=== PATIENT | male | born 1970 | race Caucasian/White ===

== ENCOUNTER 2017-09-23 11:43 | Emergency (ER) | payer SELFPAY ==
--- OUTSIDE RECORDS SUMMARY | 2017-09-23 11:45 | XMS REPORT ---
:1970 [facility] Address [address] [place] [address] Dr. Valera [address] [place] [id number] Care Team Providers Name Role Phone UNKNOWN, REFFERING Primary Care Provider Unavailable Problems This patient has no known problems. Allergies, Adverse Reactions, Alerts This patient has no known allergies or adverse reactions. Medications This patient has no known medications. Encounters Start End Encounter Admission Attending Care Care Encounter Date/Time Date/Time Type Type Clinicians Facility Department ID 2016-06-11 Inpatient C [facility] [id number] 15:30:00
--- OUTSIDE RECORDS SUMMARY | 2017-09-23 11:45 | XMS REPORT | Clinical Summary ---
:1970 Author Organization [facility] Address [address] [place] [address] Care Team Providers Name Role Phone Asked, No Pcp Primary Care Provider Unavailable Allergies No Known Allergies Current Medications Not on file Active Problems Problem Noted Date Alcohol withdrawal 10/19/2015 Bipolar affective disorder, depressed, severe, with psychotic behavior 2015 Social History Tobacco Use Types Packs/Day Years Used Date Current Every Day Smoker 15 Started: 10/17/1984 Smokeless Tobacco: Current User Snuff Tobacco Cessation: Ready to Quit: No; Counseling Given: Yes Alcohol Use Drinks/Week oz/Week Comments Yes 80 Cans of beer 48.0 case a day some days Sex Assigned at Date Recorded Not on file Last Filed Vital Signs Not on file Plan of Treatment Not on file Results Not on fileafter 09/22/2016
[2017-09-23] MEDS ORDERED: LORazepam 2 MG/ML VIAL ONE ×2 (12:08→14:59)
[2017-09-23] MEDS ORDERED: NA CHLORIDE 0.9% 1,000 ML ONE (12:09)
[2017-09-23 12:25] LABS: Absolute Lymphocytes (CBC) 2.1 K/uL (0.7-4.9); Absolute Monocytes 0.7 K/uL (0.1-1.3); Basophils % 0.7 % (0-1.3); Eosinophils % 1.2 % (0-4.4); Hematocrit 46.9 % (39.6-49.0); Lymphocytes % 18.9 % (15.3-44.8); MCH 25.1 pg (27.0-35.0); MCV 76.6 fL (80-100); MPV 7.5 fL (7.6-11.3); Monocytes % 6.1 % (3.3-12.3); RBC Red Blood Cell Count 6.12 M/uL (4.33-5.43)
[2017-09-23 12:34] LABS: Protime INR 1.09
[2017-09-23 12:38] LABS: Bicarbonate 29 mEq/L (21-31); Glucose Level 177 mg/dL (65-120); Potassium 3.4 mEq/L (3.6-5.0); Sodium Level 136 mEq/L (135-145)
[2017-09-23 12:43] LABS: ALT/SGPT 231 IU/L (10-60); AST/SGOT 149 IU/L (10-42); Albumin 4.6 g/dL (3.2-5.5); Alkaline Phosphatase 79 IU/L (42-121); BUN Blood Urea Nitrogen 7 mg/dL (6-20); Bilirubin Direct 0.1 mg/dL (0-0.2); Bilirubin Total 0.6 mg/dL (0.3-1.2)
[2017-09-23 12:47] LABS: Alcohol Serum/Plasma 328 mg/dl; Salicylates Level < 4.0 mg/dl (<30)
[2017-09-23 13:17] LABS: Urine Blood TRACE (NEG); Urine Glucose TRACE (NEG); Urine Protein NEGATIVE (NEG); Urine Specific Gravity <1.005 (1.005-1.030); Urine pH 6.5 (5.0-7.0)
[2017-09-23 13:29] LABS: Barbiturates NEGATIVE; Benzodiazepines NEGATIVE; Cocaine NEGATIVE; METHAMPHETAM NEGATIVE; Opiates NEGATIVE; Phencyclidine NEGATIVE; THC Cannibis NEGATIVE
[2017-09-23] MEDS ORDERED: FOLIC ACID IV ONE ×4 (14:00)
[2017-09-23] MEDS ORDERED: NA CHLORIDE 0.9% IV ONE ×4 (14:00)
[2017-09-23] MEDS ORDERED: [UNRECOGNIZED DRUG - OTHER] IV ONE ×4 (14:00)
[2017-09-23] MEDS ORDERED: MULTIVITAMINS IV ONE ×4 (14:00)
[2017-09-23] MEDS ORDERED: POTASSIUM CL SA 10 MEQ TAB PO ONE (14:59)
--- NOTE | 2017-09-23 15:48 | EKG ---
Test Date: 2017-09-23 Test Time: 13:21:01 [employer]: LINO MEASUREMENT RESULTS: Intervals: Rate: 113 MN: 148 QRSD: 94 QT: 346 QTc: 474 Ross: P: 33 MN: 148 QRS: 11 T: 5 INTERPRETIVE STATEMENTS: Sinus tachycardia cannot rule out anterior infarct Abnormal ECG Compared to ECG 03/30/2017 16:07:49 borderline criteria for anterior infarct are now present Electronically Signed On 09-23-17 15:48:04 CDT by Antonino Alexander
[2017-09-23 15:55] LABS: Potassium 3.2 mEq/L (3.6-5.0)
[2017-09-23] MEDS ORDERED: NS KCL 20MEQ 1,000 ML IV ONE (16:23)
[2017-09-23] MEDS ORDERED: POTASSIUM 25 MEQ EFFERV TAB ONE (16:23)
[2017-09-23 20:34] LABS: Potassium 3.6 mEq/L (3.6-5.0)
[2017-09-23] MEDS ORDERED: DIAZEPAM 10 MG/2 ML INJ SYRINGE ONE ×2 (21:35→21:39)
[2017-09-24] MEDS ORDERED: LORAZEPAM 1 MG TABLET ONE (10:06)
--- NOTE | 2017-09-24 16:20 | ER ---
Nurse's Notes [facility] Name: Frank Polo Age: 47 yrs Sex: Male : 1970 Arrival Date: 09/23/2017 Time: 11:44 Bed 16 Private MD: Diagnosis: Suicidal ideations;Major depressive disorder, recurrent;Alcohol abuse;Alcohol abuse with intoxication;Hypokalemia Presentation: 09/23 11:58 Presenting complaint: Patient states: "I have been shaking and feeling bad for the last hb few days and I just want to shoot my brains out.". Transition of care: patient was not received from another setting of care. Onset of symptoms is unknown. Initial Sepsis Screen: Does the patient meet any 2 criteria? No. Patient's initial sepsis screen is negative. Does the patient have a suspected source of infection? No. Patient's initial sepsis screen is negative. Care prior to arrival: None. 11:58 Method Of Arrival: Ambulatory hb 11:58 Acuity: PRANAV 2 hb Historical: - Allergies: 12:02 NKDA; hb - Home Meds: 12:02 chlorpromazine 200 mg Oral tab [Active]; gabapentin 300 mg Oral cap 2 caps 3 times per hb day [Active]; meloxicam 15 mg Oral tab 1 tab once daily [Active]; mirtazapine 30 mg Oral tab 1 tab once daily for Major Depressive Disorder [Active]; Remeron Oral [Active]; Seroquel Oral [Active]; sertraline 100 mg Oral tab 1 tab once daily [Active]; trazodone 100 mg Oral tab nightly [Active]; - PMHx: 12:02 Alcoholism; Bipolar disorder; hb - PSHx: 12:02 left ankle surgery; hb - Immunization history:: Adult Immunizations up to date. - Social history:: Smoking status: Patient uses tobacco products, chewing tobacco. Screenin:30 Abuse screen: Denies threats or abuse. Denies injuries from another. Nutritional hb screening: No deficits noted. Tuberculosis screening: No symptoms or risk factors identified. Fall Risk None identified. Assessment: 12:00 General: Appears distressed, Behavior is cooperative, agitated, anxious. Pain: Denies hb pain. Neuro: Level of Consciousness is awake, alert, obeys commands, Oriented to person, place, time, situation. Cardiovascular: Heart tones S1 S2 present Capillary refill < 3 seconds Patient's skin is warm and dry. Respiratory: Airway is patent Trachea midline Respiratory effort is even, unlabored, Respiratory pattern is regular, symmetrical, Breath sounds are clear bilaterally. GI: No signs and/or symptoms were reported involving the gastrointestinal system. : No signs and/or symptoms were reported regarding the genitourinary system. EENT: No signs and/or symptoms were reported regarding the EENT system. Derm: No signs and/or symptoms reported regarding the dermatologic system. Skin is intact, is healthy with good turgor, Skin is pink, warm \\T\\ dry. Musculoskeletal: No signs and/or symptoms reported regarding the musculoskeletal system. 12:05 Reassessment: Sitter at bedside. hb 12:45 Reassessment: Pt c/o anxiety, HIGH [employer]CHO[employer] D[employer]FTING TEACHER Maria Fernanda notified. No new orders at this time. hb 13:00 Reassessment: Patient appears in no apparent distress at this time. Patient and/or hb family updated on plan of care and expected duration. Pain level reassessed. Patient is alert, oriented x 3, equal unlabored respirations, skin warm/dry/pink. Sitter at bedside. 13:15 Reassessment: Pt c/o anxiety, H[employer] SCHO[employer] DRAFTING TEACHER Maria Fernanda aware. No new orders at this time. hb 13:40 Reassessment: Pt c/o anxiety, H[employer] SCHO[employer] DRA[employer]ING TEACHER Maria Fernanda aware. No new orders at this time. hb 14:00 Reassessment: Patient appears in no apparent distress at this time. Patient and/or hb family updated on plan of care and expected duration. Pain level reassessed. Patient is alert, oriented x 3, equal unlabored respirations, skin warm/dry/pink. Sitter at bedside. 14:30 Reassessment: Pt c/o anxiety, H[employer] SCHO[employer] DRA[employer]ING TEACHER Maria Fernanda aware. No new orders at this time. hb 15:10 Reassessment: Patient appears in no apparent distress at this time. Patient and/or hb family updated on plan of care and expected duration. Pain level reassessed. Patient is alert, oriented x 3, equal unlabored respirations, skin warm/dry/pink. Pt c/o severe anxiety, requesting more Ativan. SEMAJ Mena notified, repeat Ativan administered as ordered. Sitter remains at bedside. 16:00 Reassessment: Patient appears in no apparent distress at this time. No changes from hb previously documented assessment. Patient and/or family updated on plan of care and expected duration. Pain level reassessed. Patient is alert, oriented x 3, equal unlabored respirations, skin warm/dry/pink. Sitter at bedside. 17:00 Reassessment: Patient appears in no apparent distress at this time. No changes from hb previously documented assessment. Patient and/or family updated on plan of care and expected duration. Pain level reassessed. Patient is alert, oriented x 3, equal unlabored respirations, skin warm/dry/pink. 18:00 Reassessment: Patient appears in no apparent distress at this time. No changes from hb previously documented assessment. Patient and/or family updated on plan of care and expected duration. Pain level reassessed. Patient is alert, oriented x 3, equal unlabored respirations, skin warm/dry/pink. 19:00 Reassessment: Patient appears in no apparent distress at this time. No changes from hb previously documented assessment. Patient and/or family updated on plan of care and expected duration. Pain level reassessed. Patient is alert, oriented x 3, equal unlabored respirations, skin warm/dry/pink. 19:40 General: Appears in no apparent distress. Behavior is calm, cooperative. Pain: Denies ea pain. Neuro: Level of Consciousness is awake, alert, obeys commands, Oriented to person, place, time, situation. Cardiovascular: Heart tones S1 S2 present Patient's skin is warm and dry. Respiratory: Airway is patent Respiratory effort is even, unlabored, Respiratory pattern is regular, symmetrical. GI: No signs and/or symptoms were reported involving the gastrointestinal system. : No signs and/or symptoms were reported regarding the genitourinary system. EENT: No signs and/or symptoms were reported regarding the EENT system. Derm: Skin is pink, warm \\T\\ dry. 20:00 Reassessment: Patient and/or family updated on plan of care and expected duration. Pain ea level reassessed. Patient is alert, oriented x 3, equal unlabored respirations, skin warm/dry/pink. 21:16 Reassessment: Patient and/or family updated on plan of care and expected duration. Pain ea level reassessed. Patient is alert, oriented x 3, equal unlabored respirations, skin warm/dry/pink. 22:56 Reassessment: Patient and/or family updated on plan of care and expected duration. Pain ea level reassessed. Pt resting with eyes closed, respirations even and unlabored, chest expansions even and symmetrical. No s/s of pain or discomfort noted at this time. 23:15 Reassessment: Pt resting with eyes closed, respirations even and unlabored, chest ea expansions even and unlabored. No obvious s/s of pain or discomfort noted at this time. 09/24 00:58 Reassessment: Pt resting with eyes closed, respirations even and unlabored, chest ea expansions even and symmetrical. No s/s of pain or discomfort noted at this time. 01:55 Reassessment: Pt resting with eyes closed, respirations even and unlabored, chest ea expansions even and symmetrical. No s/s of pain or discomfort noted at this time. 02:55 Reassessment: Pt resting with eyes closed, respirations even and unlabored, chest ea expansions even and symmetrical. No s/s of pain or discomfort noted at this time. 03:46 Reassessment: Pt resting with eyes closed, respirations even and unlabored, chest ea expansions even and symmetrical. No s/s pain or discomfort noted at this time. 04:50 Reassessment: Pt resting with eyes closed, respirations even and unlabored, chest ea expansions even and symmetrical. No s/s of pain or discomfort noted at this time. 05:55 Reassessment: Pt resting with eyes closed, respirations even and unlabored, Chest ea expansions even and symmetrical. No s/s of pain or discomfort noted at this time. 07:29 Reassessment: Patient appears in no apparent distress at this time. Patient and/or ph family updated on plan of care and expected duration. Pain level reassessed. pt resting quietly with eyes closed and respirations even and unlabored. 09:30 Reassessment: Patient appears in no apparent distress at this time. Patient and/or ph family updated on plan of care and expected duration. Pain level reassessed. Patient is alert, oriented x 3, equal unlabored respirations, skin warm/dry/pink. 11:00 Reassessment: Patient appears in no apparent distress at this time. Patient and/or ph family updated on plan of care and expected duration. Pain level reassessed. Patient is alert, oriented x 3, equal unlabored respirations, skin warm/dry/pink. Pt resting quietly, awaiting transfer to psychiatric facility. 12:00 Reassessment: Patient appears in no apparent distress at this time. No changes from ph previously documented assessment. Patient and/or family updated on plan of care and expected duration. Pain level reassessed. Patient is alert, oriented x 3, equal unlabored respirations, skin warm/dry/pink. 13:00 Reassessment: Patient appears in no apparent distress at this time. No changes from ph previously documented assessment. 14:11 Reassessment: Patient appears in no apparent distress at this time. No changes from ph previously documented assessment. Patient and/or family updated on plan of care and expected duration. Pain level reassessed. Patient is alert, oriented x 3, equal unlabored respirations, skin warm/dry/pink. 15:00 Reassessment: Patient appears in no apparent distress at this time. Patient and/or ph family updated on plan of care and expected duration. Pain level reassessed. Patient is alert, oriented x 3, equal unlabored respirations, skin warm/dry/pink. Pt requesting to speak w/ provider, states, " I really don't want to harm myself and I/m tired of being stuck here w/ everyone watching me. Who do I need to talk to? I haven't had my normal medicines in 2 days and I'm ready to go home." ERP notified. 16:09 Reassessment: Patient appears in no apparent distress at this time. Patient and/or ph family updated on plan of care and expected duration. Pain level reassessed. Patient is alert, oriented x 3, equal unlabored respirations, skin warm/dry/pink. Dr Key at bedside to speak with pt, pt denies suicidal or homicidal thoughts at this time, pt to be discharged. Psych: 09/23 12:05 Safety Checks: Personal items have been removed. Door is open. No visitors are present hb at this time. Sitter at bedside. 12:30 Subjective: Patient's mood is sad, irritable, Hallucinations are auditory, visual, hb Having thoughts of suicide. Plan for suicide is "shoot my brains out". Objective: Patient is cooperative, challenging, irritable, restless, Speech is normal, Affect is flat. Interventions: Removed personal items and placed in bag. Patient placed in hospital gown. Searched person for dangerous items. Urine collected and sent for urine drug test. Suicide Risk Assessment: Sad Person Scale: Sex of patient: Male: Score 1 point. Age of patient: Score 1 point if patient 15-34. Depression: Score 1 point if signs of depression are present. Previous Attempt: Score 0 point if patient has not previously attempted suicide. Substance Abuse: Score 1 point if patient abuses alcohol or drugs. Rational Thinking: Score 1 point if patient is lacking rational thinking. Social Support: Score 1 point if social support is lacking and/or unavailable. Organized Plan: Score 1 point if patient had a plan in place. Relationship: Score 1 point if patient is , , , or for a single male Chronic Sickness: Score 0 point if patient does not have a chronic illness, debilitating, or severe disorder. TOTAL POINTS: If total points are 7-10, the proposed clinical action is to hospitalize or commit. Implement suicide precautions. 12:30 Patient uses 6 pack of beer, daily. Last use was 01 hours ago. Patient does not have a hb history of DTs. Vital Signs: 11:59 BP 168 / 102; Pulse 124; Resp 20; Temp 98; Pulse Ox 100% on R/A; Pain 0/10; hb 14:00 BP 167 / 89; Pulse 109; Resp 17; Pulse Ox 100% on R/A; Pain 3/10; hb 15:00 BP 156 / 86; Pulse 105; Resp 18; Pulse Ox 100% on R/A; hb 17:00 BP 168 / 78; Pulse 92; Resp 16; Pulse Ox 100% on R/A; hb 18:30 BP 156 / 86; Pulse 88; Resp 16; Pulse Ox 100% on R/A; hb 21:52 BP 125 / 76; Pulse 113; Resp 20; Pulse Ox 95% on R/A; oe 09/24 07:59 Weight 113.4 kg; bd 13:13 BP 152 / 93; Pulse 70; Resp 16; Pulse Ox 96% ; ag 16:30 BP 146 / 87; Pulse 76; Resp 18; Temp 97.6; Pulse Ox 99% on R/A; ph ED Course: 09/23 11:44 Patient arrived in ED. hb 11:53 [facility] kb 11:53 Rosales Enrique MD is Attending Physician. kb 11:58 Anne-Marie Jameson, RN is Primary Nurse. hb 11:59 Triage completed. hb 12:02 Arm band placed on left wrist. hb 12:05 Patient has correct armband on for positive identification. Placed in gown. Bed in low hb position. Call light in reach. Side rails up X 1. 12:05 Inserted saline lock: 20 gauge in left antecubital area, using aseptic technique. Blood hb collected. 12:15 Safety Checks: Personal items have been removed The door is open or patient has been hb placed in a hallway bed/chair. There are no family/friend visitors at this time Sitter at bedside. 12:17 Safety checks: Items removed: yes. Door open/sign placed on door: yes. Family/friend dh3 present: no. 12:30 Safety Checks: Personal items have been removed The door is open or patient has been hb placed in a hallway bed/chair. There are no family/friend visitors at this time Sitter at bedside. 12:30 Safety checks: Items removed: yes. Door open/sign placed on door: yes. Family/friend dh3 present: no. 12:45 Safety Checks: Personal items have been removed The door is open or patient has been hb placed in a hallway bed/chair. There are no family/friend visitors at this time. 12:45 Safety checks: Items removed: yes. Door open/sign placed on door: yes. Family/friend dh3 present: no. 13:00 Safety Checks: Personal items have been removed The door is open or patient has been hb placed in a hallway bed/chair. There are no family/friend visitors at this time Sitter at bedside. 13:00 Urine collected: clean catch specimen, clear. dh3 13:15 Safety Checks: Personal items have been removed The door is open or patient has been hb placed in a hallway bed/chair. There are no family/friend visitors at this time Sitter at bedside. 13:30 Safety Checks: Personal items have been removed The door is open or patient has been hb placed in a hallway bed/chair. There are no family/friend visitors at this time Sitter at bedside. 13:32 EKG done, by computer field technician. reviewed by Rosales Enrique MD. dt2 13:45 Safety Checks: Personal items have been removed The door is open or patient has been hb placed in a hallway bed/chair. There are no family/friend visitors at this time Sitter at bedside. 14:00 Safety Checks: Personal items have been removed The door is open or patient has been hb placed in a hallway bed/chair. There are no family/friend visitors at this time Sitter at bedside. 14:15 Safety Checks: Personal items have been removed The door is open or patient has been hb placed in a hallway bed/chair. There are no family/friend visitors at this time Sitter at bedside. 14:30 Safety Checks: Personal items have been removed The door is open or patient has been hb placed in a hallway bed/chair. There are no family/friend visitors at this time Sitter remains at bedside. 14:45 Safety Checks: Personal items have been removed The door is open or patient has been hb placed in a hallway bed/chair. There are no family/friend visitors at this time Sitter remains at bedside. 15:00 Safety Checks: Personal items have been removed The door is open or patient has been hb placed in a hallway bed/chair. There are no family/friend visitors at this time Sitter remains at bedside. 15:15 Safety Checks: Personal items have been removed The door is open or patient has been hb placed in a hallway bed/chair. There are no family/friend visitors at this time Sitter remains at bedside. 15:30 Safety Checks: Personal items have been removed The door is open or patient has been hb placed in a hallway bed/chair. There are no family/friend visitors at this time Sitter remains at bedside. 15:45 Safety Checks: Personal items have been removed The door is open or patient has been hb placed in a hallway bed/chair. There are no family/friend visitors at this time Sitter remains at bedside. 16:00 Safety Checks: Personal items have been removed The door is open or patient has been hb placed in a hallway bed/chair. There are no family/friend visitors at this time Sitter remains at bedside. 16:15 Safety Checks: Personal items have been removed The door is open or patient has been hb placed in a hallway bed/chair. There are no family/friend visitors at this time Sitter remains at bedside. 16:30 Safety Checks: Personal items have been removed The door is open or patient has been hb placed in a hallway bed/chair. There are no family/friend visitors at this time Sitter remains at bedside. 16:45 Safety Checks: Personal items have been removed The door is open or patient has been hb placed in a hallway bed/chair. There are no family/friend visitors at this time Sitter remains at bedside. 17:00 Safety Checks: Personal items have been removed The door is open or patient has been hb placed in a hallway bed/chair. There are no family/friend visitors at this time Sitter remains at bedside. 17:15 Safety Checks: Personal items have been removed The door is open or patient has been hb placed in a hallway bed/chair. There are no family/friend visitors at this time Sitter remains at bedside. 17:30 Safety Checks: Personal items have been removed The door is open or patient has been hb placed in a hallway bed/chair. There are no family/friend visitors at this time Sitter remains at bedside. 17:45 Safety Checks: Personal items have been removed The door is open or patient has been hb placed in a hallway bed/chair. There are no family/friend visitors at this time Sitter at bedside. 18:00 Safety Checks: Personal items have been removed The door is open or patient has been hb placed in a hallway bed/chair. There are no family/friend visitors at this time Sitter at bedside. 18:15 Safety Checks: Personal items have been removed The door is open or patient has been hb placed in a hallway bed/chair. There are no family/friend visitors at this time Sitter at bedside. 18:30 Safety Checks: Personal items have been removed The door is open or patient has been hb placed in a hallway bed/chair. There are no family/friend visitors at this time Sitter at bedside. 18:45 Safety Checks: Personal items have been removed The door is open or patient has been hb placed in a hallway bed/chair. There are no family/friend visitors at this time Sitter at bedside. 19:00 Safety Checks: Personal items have been removed The door is open or patient has been hb placed in a hallway bed/chair. There are no family/friend visitors at this time Sitter at bedside. 19:00 Safety checks: Items removed: Door open/sign placed on door: yes. Family/friend oe present: no. 19:15 Safety checks: Items removed: yes. Door open/sign placed on door: yes. Family/friend oe present: no. 19:30 Safety checks: Items removed: yes. Door open/sign placed on door: yes. Family/friend oe present: no. 19:45 Safety checks: Items removed: yes. Door open/sign placed on door: yes. Family/friend oe present: no. 20:00 Safety checks: Items removed: yes. Door open/sign placed on door: yes. Family/friend oe present: no. 20:15 Safety checks: Items removed: yes. Door open/sign placed on door: yes. Family/friend oe present: no. 20:30 Safety checks: Items removed: yes. Door open/sign placed on door: yes. Family/friend oe present: no. 20:45 Safety checks: Items removed: yes. Door open/sign placed on door: yes. Family/friend oe present: no. 21:00 Safety checks: Items removed: yes. Door open/sign placed on door: yes. Family/friend oe present: no. 21:15 Safety checks: Items removed: yes. Door open/sign placed on door: yes. Family/friend oe present: no. 21:30 Safety checks: Items removed: yes. Door open/sign placed on door: yes. Family/friend oe present: no. 21:45 Safety checks: Items removed: yes. Door open/sign placed on door: yes. Family/friend oe present: no. 22:00 Safety checks: Items removed: yes. Door open/sign placed on door: yes. Family/friend oe present: no. 22:15 Safety checks: Items removed: yes. Door open/sign placed on door: yes. Family/friend oe present: no. 22:30 Safety checks: Items removed: yes. Door open/sign placed on door: yes. Family/friend oe present: no. 22:45 Safety checks: Items removed: yes. Door open/sign placed on door: yes. Family/friend oe present: no. 23:00 Safety checks: Items removed: yes. Door open/sign placed on door: yes. Family/friend oe present: no. 23:15 Safety checks: Items removed: yes. Door open/sign placed on door: yes. Family/friend oe present: no. 23:30 Safety checks: Items removed: yes. Door open/sign placed on door: yes. Family/friend oe present: no. 23:45 Safety checks: Items removed: yes. Door open/sign placed on door: yes. Family/friend oe present: no. 09/24 00:00 Safety checks: Items removed: yes. Door open/sign placed on door: yes. Family/friend oe present: no. 00:15 Safety checks: Items removed: yes. Door open/sign placed on door: yes. Family/friend oe present: no. 00:30 Safety checks: Items removed: yes. Door open/sign placed on door: yes. Family/friend oe present: no. 00:45 Safety checks: Items removed: yes. Door open/sign placed on door: yes. Family/friend oe present: no. 01:00 Safety checks: Items removed: yes. Door open/sign placed on door: yes. Family/friend oe present: no. 01:15 Safety checks: Items removed: yes. Door open/sign placed on door: yes. Family/friend oe present: no. 01:30 Safety checks: Items removed: yes. Door open/sign placed on door: yes. Family/friend oe present: no. 01:45 Safety checks: Items removed: yes. Door open/sign placed on door: yes. Family/friend oe present: no. 02:00 Safety checks: Items removed: yes. Door open/sign placed on door: yes. Family/friend oe present: no. 02:15 Safety checks: Items removed: yes. Door open/sign placed on door: yes. Family/friend oe present: no. 02:30 Safety checks: Items removed: yes. Door open/sign placed on door: yes. Family/friend oe present: no. 02:45 Safety checks: Items removed: yes. Door open/sign placed on door: yes. Family/friend oe present: no. 03:00 Safety checks: Items removed: yes. Door open/sign placed on door: yes. Family/friend oe present: no. 03:15 Safety checks: Items removed: yes. Door open/sign placed on door: yes. Family/friend oe present: no. 03:30 Safety checks: Items removed: yes. Door open/sign placed on door: yes. Family/friend oe present: no. 03:45 Safety checks: Items removed: yes. Door open/sign placed on door: yes. Family/friend oe present: no. 04:00 Safety checks: Items removed: yes. Door open/sign placed on door: yes. Family/friend oe present: no. 04:15 Safety checks: Items removed: yes. Door open/sign placed on door: yes. Family/friend oe present: no. 04:30 Safety checks: Items removed: yes. Door open/sign placed on door: yes. Family/friend oe present: no. 04:45 Safety checks: Items removed: yes. Door open/sign placed on door: yes. Family/friend oe present: no. 05:00 Safety checks: Items removed: yes. Door open/sign placed on door: yes. Family/friend oe present: no. 05:15 Safety checks: Items removed: yes. Door open/sign placed on door: yes. Family/friend oe present: no. 05:30 Safety checks: Items removed: yes. Door open/sign placed on door: yes. Family/friend oe present: no. 05:45 Safety checks: Items removed: yes. Door open/sign placed on door: yes. Family/friend oe present: no. 06:00 Safety checks: Items removed: yes. Door open/sign placed on door: yes. Family/friend oe present: no. 06:15 Safety checks: Items removed: yes. Door open/sign placed on door: yes. Family/friend oe present: no. 06:30 Safety checks: Items removed: yes. Door open/sign placed on door: yes. Family/friend oe present: no. 06:45 Safety checks: Items removed: yes. Door open/sign placed on door: yes. Family/friend oe present: no. 07:00 Safety Checks: Personal items have been removed The door is open or patient has been ph placed in a hallway bed/chair. There are no family/friend visitors at this time. 07:00 Safety checks: Items removed: yes. Door open/sign placed on door: yes. Family/friend oe present: no. 07:09 Report given to Rosetta ROY ea 07:15 Safety Checks: Personal items have been removed The door is open or patient has been ph placed in a hallway bed/chair. There are no family/friend visitors at this time. 07:30 Safety Checks: Personal items have been removed The door is open or patient has been ph placed in a hallway bed/chair. There are no family/friend visitors at this time. 07:45 Safety Checks: Personal items have been removed The door is open or patient has been ph placed in a hallway bed/chair. There are no family/friend visitors at this time. 08:00 Safety Checks: Personal items have been removed The door is open or patient has been ph placed in a hallway bed/chair. There are no family/friend visitors at this time. 08:07 attempted transfer to [facility], there are no [facility] beds at this time,spoke bd with Analia. 08:09 faxed the chart to [facility], [facility], [facility], [facility], and [facility]. 08:15 Safety Checks: Personal items have been removed The door is open or patient has been ph placed in a hallway bed/chair. There are no family/friend visitors at this time. 08:30 Safety Checks: Personal items have been removed The door is open or patient has been ph placed in a hallway bed/chair. There are no family/friend visitors at this time. 08:45 Safety Checks: Personal items have been removed The door is open or patient has been ph placed in a hallway bed/chair. There are no family/friend visitors at this time. 09:00 Safety Checks: Personal items have been removed The door is open or patient has been ph placed in a hallway bed/chair. There are no family/friend visitors at this time. 09:15 Safety Checks: Personal items have been removed The door is open or patient has been ph placed in a hallway bed/chair. There are no family/friend visitors at this time. 09:30 Safety Checks: Personal items have been removed The door is open or patient has been ph placed in a hallway bed/chair. There are no family/friend visitors at this time. 09:45 Safety Checks: Personal items have been removed The door is open or patient has been ph placed in a hallway bed/chair. There are no family/friend visitors at this time. 10:00 Safety Checks: Personal items have been removed The door is open or patient has been ph placed in a hallway bed/chair. There are no family/friend visitors at this time. 10:15 Safety Checks: Personal items have been removed The door is open or patient has been ph placed in a hallway bed/chair. There are no family/friend visitors at this time. 10:30 Safety Checks: Personal items have been removed The door is open or patient has been ph placed in a hallway bed/chair. There are no family/friend visitors at this time. 10:45 Safety Checks: The door is open or patient has been placed in a hallway bed/chair. ph There are no family/friend visitors at this time. 11:00 Safety Checks: Personal items have been removed The door is open or patient has been ph placed in a hallway bed/chair. There are no family/friend visitors at this time. 11:15 Safety Checks: Personal items have been removed The door is open or patient has been ph placed in a hallway bed/chair. There are no family/friend visitors at this time. 11:30 Safety Checks: Personal items have been removed The door is open or patient has been ph placed in a hallway bed/chair. There are no family/friend visitors at this time. 11:45 Safety Checks: Personal items have been removed The door is open or patient has been ph placed in a hallway bed/chair. There are no family/friend visitors at this time. 12:00 Safety Checks: Personal items have been removed The door is open or patient has been ph placed in a hallway bed/chair. There are no family/friend visitors at this time. 12:15 Safety Checks: Personal items have been removed The door is open or patient has been ph placed in a hallway bed/chair. There are no family/friend visitors at this time. 12:30 Safety Checks: Personal items have been removed The door is open or patient has been ph placed in a hallway bed/chair. There are no family/friend visitors at this time. 12:45 Safety Checks: Personal items have been removed The door is open or patient has been ph placed in a hallway bed/chair. There are no family/friend visitors at this time. 13:00 Safety Checks: Personal items have been removed The door is open or patient has been ph placed in a hallway bed/chair. There are no family/friend visitors at this time. 13:15 Safety Checks: Personal items have been removed The door is open or patient has been ph placed in a hallway bed/chair. There are no family/friend visitors at this time. 13:30 Safety Checks: Personal items have been removed The door is open or patient has been ph placed in a hallway bed/chair. There are no family/friend visitors at this time. 13:45 Safety Checks: Personal items have been removed The door is open or patient has been ph placed in a hallway bed/chair. There are no family/friend visitors at this time. 14:00 Safety Checks: Personal items have been removed The door is open or patient has been ph placed in a hallway bed/chair. There are no family/friend visitors at this time. 14:15 Safety Checks: Personal items have been removed The door is open or patient has been ph placed in a hallway bed/chair. There are no family/friend visitors at this time. 14:30 Safety Checks: Personal items have been removed The door is open or patient has been ph placed in a hallway bed/chair. There are no family/friend visitors at this time. 14:45 Safety Checks: Personal items have been removed The door is open or patient has been ph placed in a hallway bed/chair. There are no family/friend visitors at this time. 15:00 Safety Checks: Personal items have been removed The door is open or patient has been ph placed in a hallway bed/chair. There are no family/friend visitors at this time. 15:15 Safety Checks: Personal items have been removed The door is open or patient has been ph placed in a hallway bed/chair. There are no family/friend visitors at this time. 15:30 Safety Checks: Personal items have been removed The door is open or patient has been ph placed in a hallway bed/chair. There are no family/friend visitors at this time. 15:45 Safety Checks: Personal items have been removed The door is open or patient has been ph placed in a hallway bed/chair. There are no family/friend visitors at this time. 16:00 Safety Checks: Personal items have been removed The door is open or patient has been ph placed in a hallway bed/chair. There are no family/friend visitors at this time. 16:15 Safety Checks: Personal items have been removed The door is open or patient has been ph placed in a hallway bed/chair. There are no family/friend visitors at this time. 16:18 Attending Physician role handed off by Rosales Enrique MD [facility] 16:18 Tay Key MD is Attending Physician. [facility] 16:30 Safety Checks: Personal items have been removed The door is open or patient has been ph placed in a hallway bed/chair. There are no family/friend visitors at this time. 16:35 No provider procedures requiring assistance completed. IV discontinued, intact, ph bleeding controlled, No redness/swelling at site. Pressure dressing applied. Administered Medications: 09/23 12:06 Drug: Ativan 1 mg Route: IVP; Site: left antecubital; hb 14:11 Follow up: Response: No adverse reaction hb 12:06 Drug: NS 0.9% 1000 ml Route: IV; Rate: 1000 ml; Site: left antecubital; hb 13:15 Follow up: Response: No adverse reaction; IV Status: Completed infusion hb 14:10 Drug: Banana Bag - (NS 0.9% 1000 ml, foLIC Acid 1 mg, Thiamine 100 mg, Multivitamin 1 hb amp) Route: IV; Rate: calculated rate; Site: left antecubital; 16:30 Follow up: IV Status: Completed infusion hb 14:11 Drug: Potassium Chloride 20 mEq Route: PO; hb 15:00 Follow up: Response: No adverse reaction hb 15:01 Drug: Ativan 1 mg Route: IVP; Site: left antecubital; hb 16:00 Follow up: Response: No adverse reaction hb 16:30 Drug: Potassium Effervescent Tablet 25 mEq Route: PO; hb 17:33 Follow up: Response: No change in condition hb 16:35 Drug: NS 0.9% with KCl 20 mEq/L 1000 ml Route: IV; Rate: calculated rate; Site: left hb antecubital; 18:00 Follow up: IV Status: Completed infusion hb 21:30 Drug: NS 0.9% 1000 ml Route: IV; Rate: 1000 ml; Site: left antecubital; ea 23:49 Follow up: Response: No adverse reaction; IV Status: Completed infusion; IV Intake: ea 1000ml 21:54 Drug: Valium 5 mg Route: IVP; Site: left antecubital; ea 23:48 Follow up: Response: No adverse reaction; Marked relief of symptoms ea 09/24 10:12 Drug: Ativan 1 mg Route: PO; ph 14:15 Follow up: Response: No adverse reaction ph Intake: 09/23 23:49 IV: 1000ml; Total: 1000ml. ea Outcome: 09/24 16:19 Discharge ordered by . amy 16:37 Patient left the ED. ph 16:37 Discharged to home ambulatory. ph 16:37 Condition: improved 16:37 Discharge instructions given to patient, Instructed on discharge instructions, follow up and referral plans. Demonstrated understanding of instructions, follow-up care. Signatures: Maria Fernanda Bloom, LINE LEADER-C LINE LEADER-Ckb Glory Chand Corey, MD MD cha Gallardo, Rosetta Napoles RN RN ph Baxter, Heather, RN EDISON Alvaro Aguilar Deanna 3 Renetta Ramirez RN Gabrielle Kong ea dt2 Corrections: (The following items were deleted from the chart) 09/23 20:02 19:39 Safety checks: Items removed: yes. Door open/sign placed on door: yes. oe Family/friend present: no. oe 20:02 19:39 Safety checks: Items removed: yes. Door open/sign placed on door: yes. oe Family/friend present: no. oe 21:53 20:26 Safety checks: Items removed: yes. Door open/sign placed on door: yes. oe Family/friend present: no. oe 21:53 20:26 Safety checks: Items removed: yes. Door open/sign placed on door: yes. oe Family/friend present: no. oe 21:54 20:27 Safety checks: Items removed: yes. Door open/sign placed on door: yes. oe Family/friend present: no. oe 21:54 20:30 Safety checks: Items removed: yes. Door open/sign placed on door: yes. oe Family/friend present: no. oe 09/24 01:09 01:08 Safety checks: Items removed: yes. Door open/sign placed on door: yes. oe Family/friend present: no. oe 01:58 01:57 Safety checks: Items removed: yes. Door open/sign placed on door: yes. oe Family/friend present: no. oe 04:25 03:53 Safety checks: Items removed: yes. Door open/sign placed on door: yes. oe Family/friend present: no. oe 06:05 05:35 Safety checks: Items removed: yes. Door open/sign placed on door: yes. oe Family/friend present: no. oe 06:05 05:35 Safety checks: Items removed: yes. Door open/sign placed on door: yes. oe Family/friend present: no. oe 07:02 05:35 Safety checks: Items removed: yes. Door open/sign placed on door: yes. oe Family/friend present: no. oe 07:02 05:36 Safety checks: Items removed: yes. Door open/sign placed on door: yes. oe Family/friend present: no. oe
--- NOTE | 2017-09-24 16:21 | EDPHYS ---
Physician Documentation [facility] Name: Frank Polo Age: 47 yrs Sex: Male : 1970 Arrival Date: 09/23/2017 Time: 11:44 Bed 16 Private MD: ED Physician Tay Key HPI: 09/24 16:18 This 47 yrs old Male presents to ER via Ambulatory with complaints of amy Suicidal Ideation. 09/23 12:01 The patient presents to the emergency department with depression, suicide ideation, and kb the patient has a plan, to shoot self. Onset: The symptoms/episode began/occurred 3 day(s) ago. Past psychiatric history: Prior diagnosis: bipolar disorder, depression, Psychiatric medications include: Remeron, Seroquel. Associated signs and symptoms: Pertinent positives; hallucinations, suicide ideation. Severity of symptoms: At their worst the symptoms were moderate in the emergency department the symptoms are unchanged. The patient has experienced similar episodes in the past. The patient has not recently seen a physician. Pt states "I can't keep shaking. It's been going on for a couple of days. I drank some beers to help, but it hasn't. I want to shoot my brains out. I'm seeing things too." Reports he sees [facility] for bipolar depression. Next appt is on 09/29/17. Historical: - Allergies: 12:02 NKDA; hb - Home Meds: 12:02 chlorpromazine 200 mg Oral tab [Active]; gabapentin 300 mg Oral cap 2 caps 3 times per hb day [Active]; meloxicam 15 mg Oral tab 1 tab once daily [Active]; mirtazapine 30 mg Oral tab 1 tab once daily for Major Depressive Disorder [Active]; Remeron Oral [Active]; Seroquel Oral [Active]; sertraline 100 mg Oral tab 1 tab once daily [Active]; trazodone 100 mg Oral tab nightly [Active]; - PMHx: 12:02 Alcoholism; Bipolar disorder; hb - PSHx: 12:02 left ankle surgery; hb - Immunization history:: Adult Immunizations up to date. - Social history:: Smoking status: Patient uses tobacco products, chewing tobacco. ROS: 12:01 Constitutional: Negative for fever, chills, and weight loss, ENT: Negative for injury, kb pain, and discharge, Neck: Negative for injury, pain, and swelling, Cardiovascular: Negative for chest pain, palpitations, and edema, Respiratory: Negative for shortness of breath, cough, wheezing, and pleuritic chest pain, Abdomen/GI: Negative for abdominal pain, nausea, vomiting, diarrhea, and constipation, Back: Negative for injury and pain, : Negative for injury, bleeding, discharge, and swelling, MS/Extremity: Negative for injury and deformity, Skin: Negative for injury, rash, and discoloration, Neuro: Negative for headache, weakness, numbness, tingling, and seizure. 12:01 Psych: Positive for depression, auditory hallucinations, visual hallucinations, suicidal ideation. Exam: 11:59 Constitutional: This is a well developed, well nourished patient who is awake, alert, kb and in no acute distress. Head/Face: Normocephalic, atraumatic. Chest/axilla: Normal chest wall appearance and motion. Nontender with no deformity. No lesions are appreciated. Cardiovascular: Regular rate and rhythm with a normal S1 and S2. No gallops, murmurs, or rubs. Normal PMI, no JVD. No pulse deficits. Respiratory: Lungs have equal breath sounds bilaterally, clear to auscultation and percussion. No rales, rhonchi or wheezes noted. No increased work of breathing, no retractions or nasal flaring. Abdomen/GI: Soft, non-tender, with normal bowel sounds. No distension or tympany. No guarding or rebound. No evidence of tenderness throughout. Back: No spinal tenderness. No costovertebral tenderness. Full range of motion. Skin: Warm, dry with normal turgor. Normal color with no rashes, no lesions, and no evidence of cellulitis. MS/ Extremity: Pulses equal, no cyanosis. Neurovascular intact. Full, normal range of motion. Neuro: Awake and alert, GCS 15, oriented to person, place, time, and situation. Cranial nerves II-XII grossly intact. Motor strength 5/5 in all extremities. Sensory grossly intact. Cerebellar exam normal. Normal gait. 11:59 Psych: Behavior/mood is cooperative, suicidal, depressed, Affect is calm, Oriented to person, place, time, Patient having thoughts of suicide. Judgement / Insight is normal. Memory is normal. Delusions/hallucinations are present and described as Reports he is seeing people and they are talking to him. Vital Signs: 11:59 BP 168 / 102; Pulse 124; Resp 20; Temp 98; Pulse Ox 100% on R/A; Pain 0/10; hb 14:00 BP 167 / 89; Pulse 109; Resp 17; Pulse Ox 100% on R/A; Pain 3/10; hb 15:00 BP 156 / 86; Pulse 105; Resp 18; Pulse Ox 100% on R/A; hb 17:00 BP 168 / 78; Pulse 92; Resp 16; Pulse Ox 100% on R/A; hb 18:30 BP 156 / 86; Pulse 88; Resp 16; Pulse Ox 100% on R/A; hb 21:52 BP 125 / 76; Pulse 113; Resp 20; Pulse Ox 95% on R/A; oe 09/24 07:59 Weight 113.4 kg; bd 13:13 BP 152 / 93; Pulse 70; Resp 16; Pulse Ox 96% ; ag 16:30 BP 146 / 87; Pulse 76; Resp 18; Temp 97.6; Pulse Ox 99% on R/A; ph MDM: 09/23 11:53 Patient medically screened. kb 11:59 Data reviewed: vital signs, nurses notes. Data interpreted: Pulse oximetry: on room air kb is 100 %. Interpretation: normal. 09/23 11:58 Order name: Acetaminophen; Complete Time: 12:49 kb 09/23 11:58 Order name: Basic Metabolic Panel; Complete Time: 12:49 kb 09/23 11:58 Order name: CBC with Diff; Complete Time: 12:28 kb 09/23 11:58 Order name: ETOH Level; Complete Time: 12:49 kb 09/23 11:58 Order name: Hepatic Function; Complete Time: 12:49 kb 09/23 11:58 Order name: PT-INR; Complete Time: 12:49 kb 09/23 11:58 Order name: Ptt, Activated; Complete Time: 12:49 kb 09/23 11:58 Order name: Salicylate; Complete Time: 12:49 kb 09/23 11:58 Order name: Urine Drug Screen; Complete Time: 13:55 kb 09/23 13:09 Order name: Urine Dipstick--Ancillary (enter results); Complete Time: 13:18 bd 09/23 15:18 Order name: Potassium kb 09/23 15:18 Order name: ETOH Level kb 09/23 15:19 Order name: Potassium; Complete Time: 16:18 EDMS 09/23 15:19 Order name: Alcohol Serum/Plasma; Complete Time: 16:18 EDMS 09/23 11:58 Order name: EKG; Complete Time: 11:59 kb 09/23 13:01 Order name: Diet Finger Food; Complete Time: 13:01 ch 09/23 19:43 Order name: Potassium; Complete Time: 20:46 kb 09/23 19:43 Order name: ETOH Level; Complete Time: 20:46 kb 09/24 07:23 Order name: Diet Regular; Complete Time: 07:23 ph 09/24 07:36 Order name: ETOH Level; Complete Time: 13:07 bd 09/23 11:58 Order name: EKG - Nurse/Tech; Complete Time: 13:27 kb 09/23 11:58 Order name: IV Saline Lock; Complete Time: 13:27 kb 09/23 11:58 Order name: Labs collected and sent; Complete Time: 13:27 kb 09/23 11:58 Order name: Urine Dipstick-Ancillary (obtain specimen); Complete Time: 13:28 kb 09/23 15:17 Order name: Vital Signs; Complete Time: 15:31 kb 09/24 12:20 Order name: Diet Regular; Complete Time: 12:20 ph 09/24 12:21 Order name: Diet Regular; Complete Time: 12:21 ph Administered Medications: 12:06 Drug: Ativan 1 mg Route: IVP; Site: left antecubital; hb 14:11 Follow up: Response: No adverse reaction hb 12:06 Drug: NS 0.9% 1000 ml Route: IV; Rate: 1000 ml; Site: left antecubital; hb 13:15 Follow up: Response: No adverse reaction; IV Status: Completed infusion hb 14:10 Drug: Banana Bag - (NS 0.9% 1000 ml, foLIC Acid 1 mg, Thiamine 100 mg, Multivitamin 1 hb amp) Route: IV; Rate: calculated rate; Site: left antecubital; 16:30 Follow up: IV Status: Completed infusion hb 14:11 Drug: Potassium Chloride 20 mEq Route: PO; hb 15:00 Follow up: Response: No adverse reaction hb 15:01 Drug: Ativan 1 mg Route: IVP; Site: left antecubital; hb 16:00 Follow up: Response: No adverse reaction hb 16:30 Drug: Potassium Effervescent Tablet 25 mEq Route: PO; hb 17:33 Follow up: Response: No change in condition hb 16:35 Drug: NS 0.9% with KCl 20 mEq/L 1000 ml Route: IV; Rate: calculated rate; Site: left hb antecubital; 18:00 Follow up: IV Status: Completed infusion hb 21:30 Drug: NS 0.9% 1000 ml Route: IV; Rate: 1000 ml; Site: left antecubital; ea 23:49 Follow up: Response: No adverse reaction; IV Status: Completed infusion; IV Intake: ea 1000ml 21:54 Drug: Valium 5 mg Route: IVP; Site: left antecubital; ea 23:48 Follow up: Response: No adverse reaction; Marked relief of symptoms ea 09/24 10:12 Drug: Ativan 1 mg Route: PO; ph 14:15 Follow up: Response: No adverse reaction ph Disposition: 09/23 22:39 Co-signature as Attending Physician, Rosales Enrique MD I agree with the assessment and kdr plan of care. Disposition: 09/24/17 16:19 Discharged to Home. Impression: Suicidal ideations, Major depressive disorder, recurrent, Alcohol abuse, Alcohol abuse with intoxication, Hypokalemia. - Condition is Stable. - Discharge Instructions: Depression, Adult, Potassium Content of Foods, No-harm Safety Contract, Depression, Adult, [id number], Hypokalemia. - Medication Reconciliation Form, Thank You Letter, Antibiotic Education, Prescription Opioid Use form. - Follow up: Private Physician; When: 1 - 2 days; Reason: Recheck today's complaints, Continuance of care, Re-evaluation by your physician. - Problem is new. - Symptoms have improved. Signatures: Dispatcher [employer] EDMS Maria Fernanda Bloom, MARCUS-C ESCORT BLIND-Tay Bragg MD MD cha Rittger, Kevin, MD MD kdr Nieto, Roman, MD MD rn Hall, Patricia, RN RN Anne-Marie Jameson, RN RN Renetta Ramirez RN EDISON fitzpatrick Corrections: (The following items were deleted from the chart) 09/24 16:37 16:19 09/24/2017 16:19 Discharged to Home. Impression: Suicidal ideations; Major ph depressive disorder, recurrent; Alcohol abuse; Alcohol abuse with intoxication; Hypokalemia. Condition is Stable. Forms are Medication Reconciliation Form, Thank You Letter, Antibiotic Education, Prescription Opioid Use. Follow up: Private Physician; When: 1 - 2 days; Reason: Recheck today's complaints, Continuance of care, Re-evaluation by your physician. Problem is new. Symptoms have improved. amy
[2017-09-24 16:49] VITALS: TEMP 98
[2017-09-24 16:57] VITALS: BP 152/93; O2SAT 96
== END 2017-09-24 16:37 | disposition home or self-care (01) ==
LOC: ER 11:43
DX: F33.9 Major depressive disorder, recurrent, unspecified (principal); F10.129 Alcohol abuse with intoxication, unspecified; E87.6 Hypokalemia; F31.9 Bipolar disorder, unspecified; Z72.0 Tobacco use
CPT/HCPCS: 36415; 80048; 80076; 80307; 80320; 80329; 81003; 84132; 85025; 85610; 85730; 93005; 96361; 96365; 96366; 96375; 99285; J3360; J3411; J7030

== ENCOUNTER 2017-10-17 15:52 | Emergency (ER) | payer SELFPAY ==
--- OUTSIDE RECORDS SUMMARY | 2017-10-17 15:54 | XMS REPORT | Clinical Summary ---
:1970 Author Organization [facility] Address [address] [place] [address] Care Team Providers Name Role Phone Asked, [...] Not on file Results Not on fileafter 10/16/2016
--- OUTSIDE RECORDS SUMMARY | 2017-10-17 15:54 | XMS REPORT ---
:1970 [facility] Address [address] [place] [address] Dr. Valera [address] [place] [id number] Care Team Providers Name Role Phone UNKNOWN, REFFERING Primary Care Provider Unavailable Problems This patient has no known problems. Allergies, Adverse Reactions, Alerts This patient has no known allergies or adverse reactions. Medications This patient has no known medications. Encounters Start End Encounter Admission Attending Care Care Encounter Date/Time Date/Time Type Type Clinicians Facility Department ID 2016-06-11 Inpatient [facility] [id number] 15:30:00
[2017-10-17] MEDS ORDERED: NA CHLORIDE 0.9% 1,000 ML ONE (16:59)
[2017-10-17 17:01] LABS: Urine Blood TRACE (NEG); Urine Glucose NEGATIVE (NEG); Urine Protein NEGATIVE (NEG); Urine Specific Gravity <1.005 (1.005-1.030)
[2017-10-17 17:04] LABS: Barbiturates NEGATIVE; Benzodiazepines NEGATIVE; Cocaine NEGATIVE; METHAMPHETAM NEGATIVE (NEGATIVE); Opiates NEGATIVE; Phencyclidine NEGATIVE; THC Cannibis NEGATIVE
[2017-10-17 17:07] LABS: Absolute Lymphocytes (CBC) 2.8 K/uL (0.7-4.9); Absolute Monocytes 0.4 K/uL (0.1-1.3); Absolute Neutrophil 5.9 K/uL (1.8-8.0); Basophils % 1.2 % (0-1.3); Eosinophils % 2.9 % (0-4.4); Hematocrit 43.2 % (39.6-49.0); Lymphocytes % 29.8 % (15.3-44.8); MCV 75.9 fL (80-100); MPV 7.3 fL (7.6-11.3); Monocytes % 3.8 % (3.3-12.3)
[2017-10-17 17:08] LABS: Protime INR 1.06
[2017-10-17 17:13] LABS: Bicarbonate 24 mEq/L (21-31); Glucose Level 111 mg/dL (65-120); Potassium 3.3 mEq/L (3.6-5.0); Sodium Level 136 mEq/L (135-145)
[2017-10-17] MEDS ORDERED: LORazepam 2 MG/ML VIAL ONE (17:14)
[2017-10-17] MEDS ORDERED: CYCLOBENZAPRINE 10 MG TAB ONE (17:18)
[2017-10-17 17:19] LABS: ALT/SGPT 49 IU/L (10-60); AST/SGOT 46 IU/L (10-42); Albumin 4.5 g/dL (3.2-5.5); Alkaline Phosphatase 67 IU/L (42-121); BUN Blood Urea Nitrogen 8 mg/dL (6-20); Bilirubin Direct < 0.1 mg/dL (0-0.2); Bilirubin Total 0.4 mg/dL (0.3-1.2); Protein, Total 8.4 g/dL (6.0-8.3)
[2017-10-17] MEDS ORDERED: KETOROLAC 30 MG/ML INJ ONE (17:19)
[2017-10-17] MEDS ORDERED: HYDROCODONE/APAP 10/325 TAB ONE (17:19)
[2017-10-17 17:26] LABS: Alcohol Serum/Plasma 336 mg/dl
[2017-10-17] MEDS ORDERED: HALOPERIDOL LACT 5 MG/ML INJ ONE (18:41)
[2017-10-17] MEDS ORDERED: DIPHENHYDRAMINE 50 MG/ML VIAL ONE (18:41)
[2017-10-18] MEDS ORDERED: LORazepam 2 MG/ML VIAL ONE (09:11)
--- NOTE | 2017-10-18 10:39 | EKG ---
Test Date: 2017-10-18 Test Time: 05:00:20 Substation Operator Apprentice: STACIA MEASUREMENT RESULTS: Intervals: Rate: 102 UT: 140 QRSD: 84 QT: 356 QTc: 463 [place]: P: -1 UT: 140 QRS: 21 T: 7 INTERPRETIVE STATEMENTS: Sinus tachycardia Otherwise normal ECG Compared to ECG 09/23/2017 13:21:01 Myocardial infarct finding no longer present Electronically Signed On 10-18-17 10:38:51 CDT by Antonino Alexander
[2017-10-18] MEDS ORDERED: DIAZEPAM 5 MG TABLET ONE (11:34)
--- NOTE | 2017-10-18 11:47 | ER ---
Nurse's Notes [facility] Name: Frank Polo Age: 47 yrs Sex: Male : 1970 Arrival Date: 10/17/2017 Time: 15:55 Bed 17 Private MD: None, None Diagnosis: Major depressive disorder, recurrent;Alcohol abuse;Suicidal ideations Presentation: 10/17 15:55 Presenting complaint: Patient states: "I feel like I want to kill myself by sv asphyxiation. I think I'm going through alcohol withdrawals." Pt reports last beer was 4 hours ago and he has had a 6 pack today. Pt reports binge drinking the last week. c/o weakness. "I need to go to a psych hospital." Pt reports being depressed. Transition of care: patient was not received from another setting of care. Onset of symptoms was October 17, 2017. 15:55 Method Of Arrival: Ambulatory sv 15:55 Acuity: PRANAV 2 sv 15:56 Risk Assessment: Do you want to hurt yourself or someone else? Patient reports sv desire/thoughts of hurting themselves or someone else. Provider notified. Initial Sepsis Screen: Does the patient meet any 2 criteria? No. Patient's initial sepsis screen is negative. Does the patient have a suspected source of infection? No. Patient's initial sepsis screen is negative. Care prior to arrival: None. Historical: - Allergies: 16:10 NKDA; sv - Home Meds: 16:10 gabapentin 300 mg Oral cap 2 caps 3 times per day [Active]; Seroquel Oral [Active]; sv - PMHx: 16:10 Alcoholism; Bipolar disorder; sv - PSHx: 16:10 left ankle surgery; sv - Immunization history:: Adult Immunizations up to date. - Social history:: Smoking status: Patient uses tobacco products, chewing tobacco, Patient uses alcohol, patient/guardian reports recent binge of alcohol consumption. - Ebola Screening: : No symptoms or risks identified at this time. Screenin:49 Abuse screen: Denies threats or abuse. Nutritional screening: No deficits noted. mb3 Tuberculosis screening: No symptoms or risk factors identified. Fall Risk None identified. Assessment: 16:55 General: Appears obese, unkempt, Behavior is anxious, uncooperative, Smells of alcohol. mb3 Pain: Denies pain. Neuro: Level of Consciousness is awake, alert, obeys commands, Oriented to person, place, time, situation, Printer Machine are equal bilaterally. Cardiovascular: No deficits noted. Respiratory: No deficits noted. Airway is patent Respiratory effort is even, unlabored, Respiratory pattern is regular, symmetrical, Breath sounds are clear bilaterally. GI: No deficits noted. No signs and/or symptoms were reported involving the gastrointestinal system. Abdomen is round obese, Bowel sounds present X 4 quads. Abd is soft and non tender. : No signs and/or symptoms were reported regarding the genitourinary system. Derm: No deficits noted. No signs and/or symptoms reported regarding the dermatologic system. Musculoskeletal: No deficits noted. No signs and/or symptoms reported regarding the musculoskeletal system. 19:02 Reassessment: Pt called friend, Stew Oden, he arrived and took pt's black wallet mb3 with him. Did not observe contents of wallet, pt stated it had over $500.00. 19:04 Reassessment: Patient appears in no apparent distress at this time. Patient and/or mb3 family updated on plan of care and expected duration. Pain level reassessed. Patient is alert, oriented x 3, equal unlabored respirations, skin warm/dry/pink. Patient denies pain at this time. 20:09 Reassessment: Patient appears in no apparent distress at this time. Patient and/or mb3 family updated on plan of care and expected duration. Pain level reassessed. Patient is alert, oriented x 3, equal unlabored respirations, skin warm/dry/pink. Pt sleeping, making snoring sounds, did not wake Patient states symptoms have improved. 22:03 Reassessment: Patient appears in no apparent distress at this time. Patient and/or mb3 family updated on plan of care and expected duration. Pain level reassessed. Patient is alert, oriented x 3, equal unlabored respirations, skin warm/dry/pink. Patient states symptoms have improved. 10/18 00:09 Reassessment: Patient appears in no apparent distress at this time. Patient and/or mb3 family updated on plan of care and expected duration. Pain level reassessed. Patient is alert, oriented x 3, equal unlabored respirations, skin warm/dry/pink. Patient states symptoms have improved. 02:02 Reassessment: Patient appears in no apparent distress at this time. Patient and/or mb3 family updated on plan of care and expected duration. Pain level reassessed. Patient is alert, oriented x 3, equal unlabored respirations, skin warm/dry/pink. Patient states symptoms have improved. 03:00 Reassessment: Report received from EDISON Bacon. bs1 03:00 General: Appears obese, unkempt, Behavior is anxious, Smells of alcohol. Pain: bs1 Complains of pain in abdomen. Neuro: Level of Consciousness is awake, alert, obeys commands, Oriented to person, place, time, situation, Printer Machine are equal bilaterally. Cardiovascular: Denies chest pain, shortness of breath, Heart tones S1 S2 present Capillary refill < 3 seconds Patient's skin is warm and dry. Respiratory: Airway is patent Trachea midline Respiratory effort is even, unlabored, Respiratory pattern is regular, symmetrical, Breath sounds are clear bilaterally. GI: Abdomen is round obese, Bowel sounds present X 4 quads. Abdomen is tender to palpation X 4 quads. : No signs and/or symptoms were reported regarding the genitourinary system. Derm: Skin is intact, Skin is pink, warm \\T\\ dry. Musculoskeletal: Circulation, motion, and sensation intact. Capillary refill < 3 seconds, Range of motion: intact in all extremities. 03:45 Reassessment: Patient c/o feeling shaky and having abdominal pain. Patient requesting bs1 pain medicine. Informed Dr Odom. No orders to be given at this time. 04:45 Reassessment: Patient appears in no apparent distress at this time. Patient and/or bs1 family updated on plan of care and expected duration. Pain level reassessed. Patient is alert, oriented x 3, equal unlabored respirations, skin warm/dry/pink. 05:45 Reassessment: Patient appears in no apparent distress at this time. Patient sleeping. bs1 No further needs at this time. 06:20 Reassessment: Patient appears in no apparent distress at this time. Patient and/or bs1 family updated on plan of care and expected duration. Pain level reassessed. Patient is alert, oriented x 3, equal unlabored respirations, skin warm/dry/pink. 07:03 Reassessment: Report given to DAYSI Shah. bs1 07:15 General: Appears in no apparent distress. comfortable, Behavior is calm, cooperative, em sitter at bedside. Pain: Complains of pain in abdomen. Neuro: Level of Consciousness is awake, alert, obeys commands, Oriented to person, place, time, situation. Cardiovascular: Capillary refill < 3 seconds Patient's skin is warm and dry. Respiratory: Airway is patent Respiratory effort is even, unlabored, Respiratory pattern is regular, symmetrical. GI: Abdomen is round non-distended. : No signs and/or symptoms were reported regarding the genitourinary system. Derm: Skin is intact, Skin is pink, warm \\T\\ dry. Musculoskeletal: Range of motion: intact in all extremities. 08:15 Reassessment: Patient appears in no apparent distress at this time. Patient and/or em family updated on plan of care and expected duration. Pain level reassessed. 09:15 Reassessment: request something for his shakes and sweating, Dr. Avilez notified, new em orders received. 09:25 Reassessment: Patient appears in no apparent distress at this time. Patient and/or em family updated on plan of care and expected duration. Pain level reassessed. 11:44 Reassessment: Patient appears in no apparent distress at this time. [facility] staff at em bedside. Psych: 10/17 18:49 Subjective: Patient's mood is irritable. Objective: Patient is uncooperative, mb3 irritable, Speech is normal, Affect is appropriate, Patient has mutilated themselves by none observed. Interventions: Removed personal items and placed in bag. Patient placed in hospital gown. Urine collected and sent for urine drug test. Suicide Risk Assessment: Sad Person Scale: Sex of patient: Male: Score 1 point. Age of patient: Score 0 point if patient falls outside of specified age parameters. Depression: Score 1 point if signs of depression are present. Previous Attempt: Score 1 point if patient has previously attempted suicide. Substance Abuse: Score 1 point if patient abuses alcohol or drugs. Rational Thinking: Score 0 point if patient has rational thinking. Social Support: Score 1 point if social support is lacking and/or unavailable. Organized Plan: Score 1 point if patient had a plan in place. Relationship: Score 1 point if patient is , , , or for a single male Chronic Sickness: Score 0 point if patient does not have a chronic illness, debilitating, or severe disorder. TOTAL POINTS: If total points are 7-10, the proposed clinical action is to hospitalize or commit. Implement suicide precautions. Safety Checks: Personal items have been removed. Door is open. No visitors are present at this time. Patient uses pt states benging, does not give amount, just states drinks all the time. Vital Signs: 15:55 BP 137 / 95; Pulse 129; Resp 22; Pulse Ox 95% on R/A; Weight 117.93 kg; Height 5 ft. 10 sv in. (177.80 cm); Pain 5/10; 20:08 BP 109 / 75; Pulse 85; Resp 18; Pulse Ox 94% on R/A; mb3 10/18 00:37 BP 119 / 71; Pulse 83; Resp 18; Pulse Ox 94% on R/A; mb3 03:45 BP 128 / 80; Pulse 116; Resp 18; Pulse Ox 96% ; Pain 10/10; eb1 04:03 Temp 98.5(O); bs1 06:15 BP 119 / 81; Pulse 94; Resp 18; Temp 98.2(O); Pulse Ox 96% on R/A; bs1 09:08 BP 128 / 70; Pulse 111; Resp 18; Temp 97.8; Pulse Ox 94% on R/A; jd2 10/17 15:55 Body Mass Index 37.31 (117.93 kg, 177.80 cm) sv ED Course: 10/17 15:55 Patient arrived in ED. sb2 15:55 Arm band placed on right wrist. sv 15:56 None, None is Private Physician. sb2 16:00 Jordi Ayon, EDISON is Primary Nurse. mb3 16:00 Safety checks: Items removed: yes. Door open/sign placed on door: yes. Family/friend mh5 present: no. 16:02 Garrett Avilez MD is Attending Physician. gs 16:10 Triage completed. sv 16:15 Safety checks: Items removed: yes. Door open/sign placed on door: yes. Family/friend mh5 present: no. 16:30 Safety checks: Items removed: yes. Door open/sign placed on door: yes. Family/friend mh5 present: no. 16:45 Safety checks: Items removed: yes. Door open/sign placed on door: yes. Family/friend mh5 present: no. 16:50 Inserted saline lock: 20 gauge in left forearm, using aseptic technique. Blood mb3 collected. 16:53 Urine Dipstick--Ancillary (enter results) Sent. mh5 16:53 Urine Drug Screen Sent. mh5 17:00 Safety checks: Items removed: yes. Door open/sign placed on door: yes. Family/friend mh5 present: no. 17:07 Patient has correct armband on for positive identification. Placed in gown. Patient is mb3 placed in psych hold. 17:15 Safety checks: Items removed: yes. Door open/sign placed on door: yes. Family/friend mh5 present: no. 17:30 Safety checks: Items removed: yes. Door open/sign placed on door: yes. Family/friend mh5 present: no. 17:45 Safety checks: Items removed: yes. Door open/sign placed on door: yes. Family/friend mh5 present: no. 18:00 Safety checks: Items removed: yes. Door open/sign placed on door: yes. Family/friend mh5 present: no. 18:15 Safety checks: Items removed: yes. Door open/sign placed on door: yes. Family/friend mh5 present: no. 18:30 Safety checks: Items removed: yes. Door open/sign placed on door: yes. Family/friend mh5 present: no. 18:45 Safety checks: Items removed: yes. Door open/sign placed on door: yes. Family/friend mh5 present: no. 19:00 Safety checks: Items removed: yes. Door open/sign placed on door: yes. Family/friend mh5 present: no. 19:15 Safety Checks: Personal items have been removed. The door is open or patient has been eb1 placed in a hallway bed/chair. There are no family/friend visitors at this time Sitter present at this time. 19:30 Safety Checks: Personal items have been removed. The door is open or patient has been eb1 placed in a hallway bed/chair. There are no family/friend visitors at this time Sitter present at this time. 19:45 Safety Checks: Personal items have been removed. The door is open or patient has been eb1 placed in a hallway bed/chair. There are no family/friend visitors at this time Sitter present at this time. 20:00 Safety Checks: Personal items have been removed. The door is open or patient has been eb1 placed in a hallway bed/chair. There are no family/friend visitors at this time Sitter present at this time. 20:15 Safety Checks: Personal items have been removed. The door is open or patient has been eb1 placed in a hallway bed/chair. There are no family/friend visitors at this time Sitter present at this time. 20:30 Safety Checks: Personal items have been removed. The door is open or patient has been eb1 placed in a hallway bed/chair. There are no family/friend visitors at this time Sitter present at this time. 20:45 Safety Checks: Personal items have been removed. The door is open or patient has been eb1 placed in a hallway bed/chair. There are no family/friend visitors at this time Sitter present at this time. 21:00 Safety Checks: Personal items have been removed. The door is open or patient has been eb1 placed in a hallway bed/chair. There are no family/friend visitors at this time Sitter present at this time. 21:15 Safety Checks: Personal items have been removed. The door is open or patient has been eb1 placed in a hallway bed/chair. There are no family/friend visitors at this time Sitter present at this time. 21:30 Safety Checks: Personal items have been removed. The door is open or patient has been eb1 placed in a hallway bed/chair. There are no family/friend visitors at this time Sitter present at this time. 21:45 Safety Checks: Personal items have been removed. The door is open or patient has been eb1 placed in a hallway bed/chair. There are no family/friend visitors at this time Sitter present at this time. 22:00 Safety Checks: Personal items have been removed. The door is open or patient has been eb1 placed in a hallway bed/chair. There are no family/friend visitors at this time Sitter present at this time. 22:15 Safety Checks: Personal items have been removed. The door is open or patient has been eb1 placed in a hallway bed/chair. There are no family/friend visitors at this time Sitter present at this time. 22:30 Safety Checks: Personal items have been removed. The door is open or patient has been eb1 placed in a hallway bed/chair. There are no family/friend visitors at this time Sitter present at this time. 22:45 Safety Checks: Personal items have been removed. The door is open or patient has been eb1 placed in a hallway bed/chair. There are no family/friend visitors at this time Sitter present at this time. 23:00 Safety Checks: Personal items have been removed. The door is open or patient has been eb1 placed in a hallway bed/chair. There are no family/friend visitors at this time Sitter present at this time. 23:15 Safety Checks: Personal items have been removed. The door is open or patient has been eb1 placed in a hallway bed/chair. There are no family/friend visitors at this time Sitter present at this time. 23:30 Safety Checks: Personal items have been removed. The door is open or patient has been eb1 placed in a hallway bed/chair. There are no family/friend visitors at this time Sitter present at this time. 23:45 Safety Checks: Personal items have been removed. The door is open or patient has been eb1 placed in a hallway bed/chair. There are no family/friend visitors at this time Sitter present at this time. 10/18 00:00 Safety Checks: Personal items have been removed. The door is open or patient has been eb1 placed in a hallway bed/chair. There are no family/friend visitors at this time Sitter present at this time. 00:15 Safety Checks: Personal items have been removed. The door is open or patient has been eb1 placed in a hallway bed/chair. There are no family/friend visitors at this time Sitter present at this time. 00:30 Safety Checks: Personal items have been removed. The door is open or patient has been eb1 placed in a hallway bed/chair. There are no family/friend visitors at this time Sitter present at this time. 00:45 Safety Checks: Personal items have been removed. The door is open or patient has been eb1 placed in a hallway bed/chair. There are no family/friend visitors at this time Sitter present at this time. 01:00 Safety Checks: Personal items have been removed. The door is open or patient has been eb1 placed in a hallway bed/chair. There are no family/friend visitors at this time Sitter present at this time. 01:10 Diet: Patient given snack. mb3 01:15 Safety Checks: Personal items have been removed. The door is open or patient has been eb1 placed in a hallway bed/chair. There are no family/friend visitors at this time Sitter present at this time. 01:30 Safety Checks: Personal items have been removed. The door is open or patient has been eb1 placed in a hallway bed/chair. There are no family/friend visitors at this time Sitter present at this time. 01:45 Safety Checks: Personal items have been removed. The door is open or patient has been eb1 placed in a hallway bed/chair. There are no family/friend visitors at this time Sitter present at this time. 02:00 Safety Checks: Personal items have been removed. The door is open or patient has been eb1 placed in a hallway bed/chair. There are no family/friend visitors at this time Sitter present at this time. 02:15 Safety Checks: Personal items have been removed. The door is open or patient has been eb1 placed in a hallway bed/chair. There are no family/friend visitors at this time Sitter present at this time. 02:30 Safety Checks: Personal items have been removed. The door is open or patient has been eb1 placed in a hallway bed/chair. There are no family/friend visitors at this time Sitter present at this time. 02:45 Safety Checks: Personal items have been removed. The door is open or patient has been eb1 placed in a hallway bed/chair. There are no family/friend visitors at this time Sitter present at this time. 03:00 Safety Checks: Personal items have been removed. The door is open or patient has been eb1 placed in a hallway bed/chair. There are no family/friend visitors at this time Sitter present at this time. 03:15 Safety Checks: Personal items have been removed. The door is open or patient has been eb1 placed in a hallway bed/chair. There are no family/friend visitors at this time Sitter present at this time. 03:30 Safety Checks: Personal items have been removed. The door is open or patient has been eb1 placed in a hallway bed/chair. There are no family/friend visitors at this time Sitter present at this time. 03:45 Safety Checks: Personal items have been removed. The door is open or patient has been eb1 placed in a hallway bed/chair. There are no family/friend visitors at this time Sitter present at this time. 04:00 Safety Checks: Personal items have been removed. The door is open or patient has been eb1 placed in a hallway bed/chair. There are no family/friend visitors at this time Sitter present at this time. 04:15 Safety Checks: Personal items have been removed. The door is open or patient has been eb1 placed in a hallway bed/chair. There are no family/friend visitors at this time Sitter present at this time. 04:30 Safety Checks: Personal items have been removed. The door is open or patient has been eb1 placed in a hallway bed/chair. There are no family/friend visitors at this time Sitter present at this time. 04:45 Safety Checks: Personal items have been removed. The door is open or patient has been eb1 placed in a hallway bed/chair. There are no family/friend visitors at this time Sitter present at this time. 05:00 Safety Checks: Personal items have been removed. The door is open or patient has been eb1 placed in a hallway bed/chair. There are no family/friend visitors at this time Sitter present at this time. 05:15 Appears to be sleeping. Safety Checks: Personal items have been removed. The door is eb1 open or patient has been placed in a hallway bed/chair. There are no family/friend visitors at this time Sitter present at this time. 05:30 Appears to be sleeping. Safety Checks: Personal items have been removed. The door is eb1 open or patient has been placed in a hallway bed/chair. There are no family/friend visitors at this time Sitter present at this time. 05:45 Appears to be sleeping. Safety Checks: Personal items have been removed. The door is eb1 open or patient has been placed in a hallway bed/chair. There are no family/friend visitors at this time Sitter present at this time. 06:00 Appears to be sleeping. Safety Checks: Personal items have been removed. The door is eb1 open or patient has been placed in a hallway bed/chair. There are no family/friend visitors at this time Sitter present at this time. 06:15 Appears to be sleeping. Safety Checks: Personal items have been removed. The door is eb1 open or patient has been placed in a hallway bed/chair. There are no family/friend visitors at this time Sitter present at this time. 06:30 Appears to be sleeping. Safety Checks: Personal items have been removed. The door is eb1 open or patient has been placed in a hallway bed/chair. There are no family/friend visitors at this time Sitter present at this time. 06:45 Appears to be sleeping. Safety Checks: Personal items have been removed. The door is eb1 open or patient has been placed in a hallway bed/chair. There are no family/friend visitors at this time Sitter present at this time. 07:00 No apparent distress. Appears to be sleeping. Safety Checks: Personal items have been eb1 removed. The door is open or patient has been placed in a hallway bed/chair. There are no family/friend visitors at this time Sitter present at this time. 12:04 No provider procedures requiring assistance completed. IV discontinued, intact, em bleeding controlled, No redness/swelling at site. Pressure dressing applied. Administered Medications: 10/17 16:55 Drug: NS 0.9% 1000 ml Route: IV; Rate: 1 bolus; Site: left forearm; mb3 18:36 Follow up: IV Status: Completed infusion; IV Intake: 1000ml mb3 17:15 Drug: Ativan 2 mg Route: IVP; Site: left forearm; mb3 18:36 Follow up: Response: No adverse reaction mb3 18:45 Drug: HALdol (as decanoate) 10 mg Route: IM; Site: right gluteus; mb3 10/18 04:43 Follow up: Response: No adverse reaction bs1 10/17 18:45 Drug: Benadryl 50 mg Route: IM; Site: right gluteus; mb3 10/18 04:43 Follow up: Response: No adverse reaction bs1 09:23 Drug: Ativan 2 mg Route: IVP; Site: left forearm; em 11:27 Follow up: Response: No adverse reaction em 11:37 Drug: Valium 10 mg Route: PO; em 11:46 Follow up: Response: No adverse reaction em Intake: 10/17 18:36 IV: 1000ml; Total: 1000ml. mb3 Outcome: 10/18 11:47 Discharge ordered by . gs 12:04 Discharged to home ambulatory. em 12:04 Condition: good 12:04 Discharge instructions given to patient, Instructed on discharge instructions, follow up and referral plans. Demonstrated understanding of instructions, follow-up care. 12:10 Patient left the ED. em Signatures: Sulma Rondon, RN RN Pablo Whitney, TRUCK GREASER TRUCK GREASER em Belén Hdez Maria 5 Garrett Avilez MD MD gs Salazar, Brittany, RN RN bs1 Adrienne Giles sb2 Jordi Ayon, RN RN mb3 Yudith Portillo, RN RN eb1 Corrections: (The following items were deleted from the chart) 10/17 16:12 15:55 Presenting complaint: Patient states: "I feel like I want to kill myself by sv asphyxiation. I think I'm going through alcohol withdrawals." Pt reports last beer was 4 hours ago and he has had a 6 pack today. Pt reports binge drinking the last week. c/o weakness. "I need to go to a psych hospital." sv 10/18 05:44 01:50 Safety Checks: Personal items have been removed. The door is open or patient has eb1 been placed in a hallway bed/chair. There are no family/friend visitors at this time Sitter present at this time. eb1 12:04 07:15 General: Appears in no apparent distress. comfortable, Behavior is calm, em cooperative, em
--- NOTE | 2017-10-18 11:48 | EDPHYS ---
Physician Documentation [facility] Name: Frank Polo Age: 47 yrs Sex: Male : 1970 Arrival Date: 10/17/2017 Time: 15:55 Bed 17 Private MD: None, None ED Physician Garrett Avilez HPI: 10/17 18:07 This 47 yrs old Male presents to ER via Ambulatory with complaints of gs Suicidal Ideation, Alcohol Withdrawal. 18:07 The patient presents to the emergency department with depression, psychosis, has gs delusions, a history of substance abuse, Type: whisky. Onset: The symptoms/episode began/occurred 1 week(s) ago, and became worse and became persistent. Associated signs and symptoms: Pertinent positives; suicide ideation, wants to hang self, Pertinent negatives: abdominal pain, chest pain. Severity of symptoms: At their worst the symptoms were severe in the emergency department the symptoms are unchanged. The patient has experienced similar episodes in the past, a few times. Historical: - Allergies: 16:10 NKDA; sv - Home Meds: 16:10 gabapentin 300 mg Oral cap 2 caps 3 times per day [Active]; Seroquel Oral [Active]; sv - PMHx: 16:10 Alcoholism; Bipolar disorder; sv - PSHx: 16:10 left ankle surgery; sv - Immunization history:: Adult Immunizations up to date. - Social history:: Smoking status: Patient uses tobacco products, chewing tobacco, Patient uses alcohol, patient/guardian reports recent binge of alcohol consumption. - Ebola Screening: : No symptoms or risks identified at this time. ROS: 18:07 All other systems are negative. gs Exam: 18:07 Head/Face: Normocephalic, atraumatic. Eyes: Pupils equal round and reactive to light, gs extra-ocular motions intact. Lids and lashes normal. Conjunctiva and sclera are non-icteric and not injected. Cornea within normal limits. Periorbital areas with no swelling, redness, or edema. ENT: Nares patent. No nasal discharge, no septal abnormalities noted. Tympanic membranes are normal and external auditory canals are clear. Oropharynx with no redness, swelling, or masses, exudates, or evidence of obstruction, uvula midline. Mucous membranes moist. Neck: Trachea midline, no thyromegaly or masses palpated, and no cervical lymphadenopathy. Supple, full range of motion without nuchal rigidity, or vertebral point tenderness. No Meningismus. Chest/axilla: Normal chest wall appearance and motion. Nontender with no deformity. No lesions are appreciated. Respiratory: Lungs have equal breath sounds bilaterally, clear to auscultation and percussion. No rales, rhonchi or wheezes noted. No increased work of breathing, no retractions or nasal flaring. Abdomen/GI: Soft, non-tender, with normal bowel sounds. No distension or tympany. No guarding or rebound. No evidence of tenderness throughout. Back: No spinal tenderness. No costovertebral tenderness. Full range of motion. Skin: Warm, dry with normal turgor. Normal color with no rashes, no lesions, and no evidence of cellulitis. MS/ Extremity: Pulses equal, no cyanosis. Neurovascular intact. Full, normal range of motion. Neuro: Awake and alert, GCS 15, oriented to person, place, time, and situation. Cranial nerves II-XII grossly intact. Motor strength 5/5 in all extremities. Sensory grossly intact. Cerebellar exam normal. Normal gait. 18:07 Constitutional: The patient appears alert, awake. 18:07 Psych: Behavior/mood is anxious, Affect is animated, Oriented to person, place, time, Patient having thoughts of suicide. Plan for suicide is hanging self Judgement / Insight is impaired. Vital Signs: 15:55 BP 137 / 95; Pulse 129; Resp 22; Pulse Ox 95% on R/A; Weight 117.93 kg; Height 5 ft. 10 sv in. (177.80 cm); Pain 5/10; 20:08 BP 109 / 75; Pulse 85; Resp 18; Pulse Ox 94% on R/A; mb3 06/03 00:37 BP 119 / 71; Pulse 83; Resp 18; Pulse Ox 94% on R/A; mb3 03:45 BP 128 / 80; Pulse 116; Resp 18; Pulse Ox 96% ; Pain 10/10; eb1 04:03 Temp 98.5(O); bs1 06:15 BP 119 / 81; Pulse 94; Resp 18; Temp 98.2(O); Pulse Ox 96% on R/A; bs1 09:08 BP 128 / 70; Pulse 111; Resp 18; Temp 97.8; Pulse Ox 94% on R/A; jd2 10/17 15:55 Body Mass Index 37.31 (117.93 kg, 177.80 cm) sv MDM: 10/17 16:17 Patient medically screened. 18:07 Differential diagnosis: drug withdrawal. acute psychotic break, depression, psychosis gs secondary to non-compliance. Data reviewed: vital signs, nurses notes. Response to treatment: the patient's symptoms have mildly improved after treatment, and as a result, I will. 10/18 11:45 ED course: pt seen and examined, gc evaluated. crisis over not intoxicated no longer gs suicidal, still depressed has appt for op therapy encourage not to drink. will discharge. 10/17 16:17 Order name: Acetaminophen; Complete Time: 17:34 10/17 16:17 Order name: Basic Metabolic Panel; Complete Time: 17:34 10/17 16:17 Order name: CBC with Diff; Complete Time: 17:34 10/17 16:17 Order name: ETOH Level; Complete Time: 17:34 10/17 16:17 Order name: Hepatic Function; Complete Time: 17:34 10/17 16:17 Order name: PT-INR; Complete Time: 17:34 10/17 16:17 Order name: Salicylate; Complete Time: 17:34 10/17 16:17 Order name: Urine Drug Screen; Complete Time: 17:34 10/17 16:51 Order name: Urine Dipstick--Ancillary (enter results); Complete Time: 17:34 em1 10/18 01:10 Order name: ETOH Level; Complete Time: 09:06 mb3 10/18 09:06 Order name: Ethanol; Complete Time: 11:09 10/17 16:17 Order name: EKG - Nurse/Tech; Complete Time: 05:05 10/17 16:17 Order name: IV Saline Lock; Complete Time: 17:06 10/17 16:17 Order name: Labs collected and sent; Complete Time: 17:06 10/17 16:17 Order name: Urine Dipstick-Ancillary (obtain specimen); Complete Time: 16:50 10/17 16:53 Order name: Diet Regular; Complete Time: 16:53 mh5 10/18 07:15 Order name: EKG Electrocardiogram EDMS Administered Medications: 10/17 16:55 Drug: NS 0.9% 1000 ml Route: IV; Rate: 1 bolus; Site: left forearm; mb3 18:36 Follow up: IV Status: Completed infusion; IV Intake: 1000ml mb3 17:15 Drug: Ativan 2 mg Route: IVP; Site: left forearm; mb3 18:36 Follow up: Response: No adverse reaction mb3 18:45 Drug: HALdol (as decanoate) 10 mg Route: IM; Site: right gluteus; mb3 10/18 04:43 Follow up: Response: No adverse reaction bs1 02 18:45 Drug: Benadryl 50 mg Route: IM; Site: right gluteus; mb3 10/18 04:43 Follow up: Response: No adverse reaction bs1 09:23 Drug: Ativan 2 mg Route: IVP; Site: left forearm; em 11:27 Follow up: Response: No adverse reaction em 11:37 Drug: Valium 10 mg Route: PO; em 11:46 Follow up: Response: No adverse reaction em Disposition: 10/18/17 11:47 Discharged to Home. Impression: Major depressive disorder, recurrent, Alcohol abuse, Suicidal ideations. - Condition is Stable. - Discharge Instructions: Alcohol Use Disorder, Depression, Adult, No-harm Safety Contract. - Medication Reconciliation Form, Thank You Letter, Antibiotic Education, Prescription Opioid Use form. - Follow up: Private Physician; When: 1 - 2 days; Reason: Re-evaluation by your physician. - Problem is an acute exacerbation. - Symptoms are resolved. Signatures: Dispatcher [employer] Sulma Herndon RN RN Pablo Whitney, CALL CENTRE SUPERVISOR CALL CENTRE SUPERVISOR Garrett Santamaria MD MD gs Barnett, Mark, RN RN mb3 Maria Alejandra Monzon RN bs1 Corrections: (The following items were deleted from the chart) 11:47 11:47 10/18/2017 11:47 Discharged to Home. Impression: Major depressive disorder, gs recurrent; Alcohol abuse; Suicidal ideations. Condition is Stable. Forms are Medication Reconciliation Form, Thank You Letter, Antibiotic Education, Prescription Opioid Use. Follow up: Private Physician; When: 1 - 2 days; Reason: Re-evaluation by your physician. gs 12:06 11:47 10/18/2017 11:47 Discharged to Home. Impression: Major depressive disorder, em recurrent; Alcohol abuse; Suicidal ideations. Condition is Stable. Forms are Medication Reconciliation Form, Thank You Letter, Antibiotic Education, Prescription Opioid Use. Follow up: Private Physician; When: 1 - 2 days; Reason: Re-evaluation by your physician. Problem is an acute exacerbation. Symptoms are resolved. 12:10 12:06 10/18/2017 11:47 Discharged to Home. Impression: Major depressive disorder, em recurrent; Alcohol abuse; Suicidal ideations. Condition is Stable. Discharge Instructions: Alcohol Use Disorder, Depression, Adult, No-harm Safety Contract. Forms are Medication Reconciliation Form, Thank You Letter, Antibiotic Education, Prescription Opioid Use. Follow up: Private Physician; When: 1 - 2 days; Reason: Re-evaluation by your physician. Problem is an acute exacerbation. Symptoms are resolved. em
[2017-10-18 12:21] VITALS: BP 128/70; TEMP 97.8; O2SAT 94
== END 2017-10-18 12:10 | disposition home or self-care (01) ==
LOC: ER 15:52
DX: F33.9 Major depressive disorder, recurrent, unspecified (principal); F10.20 Alcohol dependence, uncomplicated; F31.9 Bipolar disorder, unspecified; Z72.0 Tobacco use
CPT/HCPCS: 36415; 80048; 80076; 80307; 80320; 80329; 81003; 85025; 85610; 93005; 96361; 96372; 96374; 99284; J1630; J7030

== ENCOUNTER 2018-09-26 15:35 | Emergency (ER) | payer SELFPAY ==
[2018-09-26 16:36] LABS: Absolute Lymphocytes (CBC) 0.5 K/uL (0.7-4.9); Absolute Monocytes 0.4 K/uL (0.1-1.3); Absolute Neutrophil 11.2 K/uL (1.8-8.0); Basophils % 2.1 % (0-1.3); Eosinophils % 0.3 % (0-4.4); Hematocrit 42.1 % (39.6-49.0); Lymphocytes % 3.7 % (15.3-44.8); Monocytes % 2.9 % (3.3-12.3); RBC Red Blood Cell Count 5.26 M/uL (4.33-5.43)
[2018-09-26] MEDS ORDERED: ONDANSETRON 4 MG/2 ML VIAL ONE (16:44)
[2018-09-26] MEDS ORDERED: MAGNE/ALUM HYDROXD 30 ML UCUP ONE (16:44)
[2018-09-26] MEDS ORDERED: THIAMINE 200 MG/2 ML INJ ONE (16:44)
[2018-09-26] MEDS ORDERED: MULTIVITAMINS 10 ML VIAL (INJ) IV ONE (16:45)
[2018-09-26] MEDS ORDERED: NA CHLORIDE 0.9% 1,000 ML ONE (16:45)
[2018-09-26] MEDS ORDERED: FAMOTIDINE 20 MG/2 ML VIAL IV ONE (16:45)
[2018-09-26] MEDS ORDERED: PANTOPRAZOLE 40 MG INJ ONE (16:45)
[2018-09-26] MEDS ORDERED: LIDOCAINE VISCOUS 2% SOLN 15 ML UDC ONE (16:45)
[2018-09-26] MEDS ORDERED: FOLIC ACID 5 MG/ML VIAL ONE (16:46)
[2018-09-26 16:49] LABS: Urine Blood TRACE (NEG); Urine Glucose TRACE (NEG); Urine Protein NEGATIVE (NEG); Urine Specific Gravity <1.005 (1.005-1.030)
--- NOTE | 2018-09-26 17:12 | EDPHYS ---
Physician Documentation [facility] Name: Frank Polo Age: 48 yrs Sex: Male : 1970 Arrival Date: 09/26/2018 Time: 15:36 Bed 6 Private MD: ROBBI Physician Tay Key HPI: 09/26 16:15 This 48 yrs old Male presents to ER via Ambulatory with complaints of cp Abdominal Pain, Vomiting - Blood, Urinary Problem. 16:15 The patient presents with abdominal pain in the upper abdomen. Onset: The cp symptoms/episode began/occurred gradually. The symptoms radiate to chest. Associated signs and symptoms: Pertinent positives: blood in stools, diarrhea, vomiting, vomiting blood, Pertinent negatives: constipation, testicular pain. Patient reports history of daily drinking of beer with last alcoholic drink 2 hours ago. Historical: - Allergies: 15:51 NKDA; aj - Home Meds: 15:51 chlorpromazine 200 mg Oral tab [Active]; gabapentin 300 mg Oral cap 2 caps 3 times per aj day [Active]; meloxicam 15 mg Oral tab 1 tab once daily [Active]; mirtazapine 30 mg Oral tab 1 tab once daily for Major Depressive Disorder [Active]; Remeron Oral [Active]; Seroquel Oral [Active]; sertraline 100 mg Oral tab 1 tab once daily [Active]; trazodone 100 mg Oral tab nightly [Active]; - PMHx: 15:51 Bipolar disorder; Alcoholism; aj - PSHx: 15:51 left ankle surgery; aj - Immunization history:: Adult Immunizations. - Social history:: Smoking status: Patient/guardian denies using tobacco, Patient uses alcohol, on a daily basis. - Ebola Screening: : Patient negative for fever greater than or equal to 101.5 degrees Fahrenheit, and additional compatible Ebola Virus Disease symptoms Patient denies exposure to infectious person Patient denies travel to an Ebola-affected area in the 21 days before illness onset No symptoms or risks identified at this time. ROS: 16:20 Constitutional: Negative for body aches, chills, fever, poor PO intake. cp 16:20 Eyes: Negative for injury, pain, redness, and discharge. cp 16:20 Cardiovascular: Positive for chest pain, of the retrosternal, Negative for edema, cp palpitations. 16:20 Respiratory: Negative for cough, wheezing. cp 16:20 Abdomen/GI: Positive for abdominal pain, nausea, vomiting, diarrhea, Negative for black/tarry stool, active vomiting. 16:20 Neuro: Negative for altered mental status, headache, seizure activity, weakness. 16:20 Psych: Positive for alcohol dependence. 16:20 All other systems are negative. Exam: 16:25 Constitutional: The patient appears in no acute distress, alert, awake, cp non-diaphoretic, non-toxic, well developed, well nourished, obese. 16:25 Head/Face: Normocephalic, atraumatic. cp 16:25 Eyes: Periorbital structures: appear normal, Conjunctiva: normal, no exudate, no injection, Sclera: no appreciated abnormality, Lids and lashes: appear normal, bilaterally. 16:25 ENT: External ear(s): are unremarkable, Nose: is normal, Mouth: Lips: moist, Oral mucosa: pink and intact, moist, Posterior pharynx: is normal, airway is patent, no erythema, no exudate. 16:25 Chest/axilla: Inspection: normal, Palpation: is normal, no crepitus, no tenderness. 16:25 Cardiovascular: Rate: tachycardic, Rhythm: regular, Edema: is not appreciated, JVD: is not appreciated. 16:25 Respiratory: the patient does not display signs of respiratory distress, Respirations: normal, no use of accessory muscles, no retractions, no splinting, no tachypnea, labored breathing, is not present, Breath sounds: are clear throughout, no decreased breath sounds, no stridor, no wheezing. 16:25 Abdomen/GI: Inspection: obese Bowel sounds: active, all quadrants, Palpation: soft, in all quadrants, mild abdominal tenderness, in all quadrants, rebound tenderness, is not appreciated, involuntary guarding, is not appreciated, Rectal exam: Stool: brown, guaiac negative, loose. 16:25 Back: pain, is absent, ROM is normal. 16:25 Neuro: Orientation: to person, place \T\ time. Mentation: is normal, Motor: moves all fours, strength is normal, Gait: is steady, at a normal pace, without difficulty. Vital Signs: 15:51 BP 152 / 93; Pulse 123; Resp 19; Temp 98.8; Pulse Ox 97% on R/A; Weight 117.93 kg; aj Height 5 ft. 10 in. (177.80 cm); 16:30 BP 145 / 70; Pulse 110; Resp 18; Temp 98.5(O); Pulse Ox 100% on R/A; mg2 15:51 Body Mass Index 37.31 (117.93 kg, 177.80 cm) aj MDM: 16:02 Patient medically screened. cp 16:30 Differential diagnosis: gastritis, pancreatitis, Peptic Ulcer Disease, Perf. Duodenal cp Ulcer, Perf. Gastric Ulcer, urinary tract infection. 17:05 Data reviewed: vital signs, nurses notes, lab test result(s). 09/26 16:06 Order name: Urine Dipstick--Ancillary (enter results); Complete Time: 16:49 em1 09/26 16:11 Order name: Basic Metabolic Panel mg2 09/26 16:11 Order name: CBC with Diff mg2 09/26 16:11 Order name: CBC with Automated Diff EDMS 05 16:50 Interpretation: Normal except: WBC 12.4; MCV 79.9; ILDA% 91.0; LYM% 3.7; MN% 2.9; BASO% cp 2.1; NEUT A 11.2; LYMA 0.5. 05 16:06 Order name: Urine Dipstick-Ancillary (obtain specimen); Complete Time: 16:06 em1 09/26 16:11 Order name: IV Saline Lock; Complete Time: 16:11 mg2 09/26 16:11 Order name: Labs collected and sent; Complete Time: 16:11 mg2 09/26 16:26 Order name: EKG - Nurse/Tech Administered Medications: 16:46 Drug: Pepcid 20 mg Route: IVP; Site: right antecubital; mg2 16:59 Follow up: Response: No adverse reaction; Medication administered at discharge. mg2 16:51 Not Given (Patient Refused): NS 0.9% 1000 ml IV at 1 bolus Per protocol; 1000 mL bolus mg2 16:51 Not Given (Patient Refused): Banana Bag - (NS 0.9% 1000 ml, foLIC Acid 1 mg, Thiamine mg2 100 mg, Multivitamin 1 amp) IV at 200 ml/hr once 16:51 Drug: ProTONIX 40 mg Route: IVP; Site: right antecubital; mg2 16:59 Follow up: Response: No adverse reaction; Medication administered at discharge. mg2 17:00 Drug: Zofran 4 mg Route: IVP; Site: right antecubital; mg2 17:00 Follow up: Response: No adverse reaction; Medication administered at discharge. mg2 17:01 Drug: GI Cocktail without - (Maalox Suspension 30 ml, Lidocaine Liquid 2 % 15 mg2 ml) Route: PO; 17:01 Follow up: Response: No adverse reaction; Medication administered at discharge. mg2 Disposition: 09/27 09:24 Co-signature as Attending Physician, Tay Key MD I agree with the assessment and amy plan of care. Disposition: 09/26/18 17:11 Patient has left against medical advice. Impression: Alcohol abuse with intoxication, uncomplicated. - Patients states they are going to Home. - Condition is Stable. - Discharge Instructions: Chemical Dependency, Alcohol Intoxication, Alcohol Use Disorder, Alcohol Abuse and Nutrition. Follow up: Private Physician; When: Tomorrow; Reason: Recheck today's complaints. - Problem is new. - Symptoms are unchanged. Signatures: Dispatcher [employer] Jojo Mccormack RN RN aj Anderson, Corey, MD MD cha Martinez, Eric em1 Tay Fletcher PA PA Román Rogers RN RN mg2 Corrections: (The following items were deleted from the chart) 09/26 16:50 16:27 URINE DRUG SCREEN+CHEM UR.LAB.BRZ ordered. EDMS EDMS 16:50 16:50 Normal except: WBC 12.4; MCV 79.9; ILDA% 91.0; LYM% 3.7; MN% 2.9; BASO% 2.1; NEUT cp A 11.2. cp 16:51 16:11 Basic Metabolic Panel ordered. EDMS EDMS 16:51 16:11 Creatinine for Radiology+C.LAB.BRZ ordered. EDMS EDMS 16:51 16:11 HEPATIC FUNCTION+C.LAB.BRZ ordered. EDMS EDMS 16:51 16:27 MAGNESIUM+C.LAB.BRZ ordered. EDMS EDMS 16:51 16:27 TROPONIN I+C.LAB.BRZ ordered. EDMS EDMS 16:51 16:27 ETHANOL+C.LAB.BRZ ordered. EDMS EDMS 16:51 16:27 PROTIME (+INR)+COAG.LAB.BRZ ordered. EDMS EDMS 16:51 16:27 PTT, ACTIVATED+COAG.LAB.BRZ ordered. EDMS EDMS 16:51 16:27 PROBNP+C.LAB.BRZ ordered. EDMS EDMS 16:52 16:11 LIPASE+C.LAB.BRZ ordered. EDMS EDMS 17:11 17:11 09/26/2018 17:11 Patients has left against medical advice. Impression: Alcohol mg2 abuse with intoxication, uncomplicated. Patient states they are going to Home. Condition is Stable. Follow up: Private Physician; When: Tomorrow; Reason: Recheck today's complaints. Problem is new. Symptoms are unchanged. cp
--- NOTE | 2018-09-26 17:12 | ER ---
Nurse's Notes [facility] Name: Frank Polo Age: 48 yrs Sex: Male : 1970 Arrival Date: 09/26/2018 Time: 15:36 Bed 6 Private MD: Diagnosis: Alcohol abuse with intoxication, uncomplicated Presentation: 09/26 15:49 Presenting complaint: Patient states: Quit drinking alcohol 2 days ago and has been aj feeling shaky and has had urinary incontinence with blood and vomiting blood for 1 week. Transition of care: patient was not received from another setting of care. Onset of symptoms was September 24, 2018. Risk Assessment: Do you want to hurt yourself or someone else? Patient reports no desire to harm self or others. Initial Sepsis Screen: Does the patient meet any 2 criteria? No. Patient's initial sepsis screen is negative. Does the patient have a suspected source of infection? No. Patient's initial sepsis screen is negative. Care prior to arrival: None. 15:49 Method Of Arrival: Ambulatory 15:49 Acuity: PRANAV 2 aj Triage Assessment: 15:51 General: Appears in no apparent distress. uncomfortable, Behavior is calm, cooperative, aj appropriate for age. Pain: Denies pain. Neuro: Level of Consciousness is awake, alert, obeys commands, Oriented to person, place, time, situation, Appropriate for age. Respiratory: Airway is patent Respiratory effort is even, unlabored, Respiratory pattern is regular, symmetrical. GI: Reports nausea, vomiting. : Reports incontinence. Derm: Skin is intact, is healthy with good turgor, Skin is pink, warm \T\ dry. normal. Historical: - Allergies: 15:51 NKDA; aj - Home Meds: 15:51 chlorpromazine 200 mg Oral tab [Active]; gabapentin 300 mg Oral cap 2 caps 3 times per aj day [Active]; meloxicam 15 mg Oral tab 1 tab once daily [Active]; mirtazapine 30 mg Oral tab 1 tab once daily for Major Depressive Disorder [Active]; Remeron Oral [Active]; Seroquel Oral [Active]; sertraline 100 mg Oral tab 1 tab once daily [Active]; trazodone 100 mg Oral tab nightly [Active]; - PMHx: 15:51 Bipolar disorder; Alcoholism; aj - PSHx: 15:51 left ankle surgery; aj - Immunization history:: Adult Immunizations. - Social history:: Smoking status: Patient/guardian denies using tobacco, Patient uses alcohol, on a daily basis. - Ebola Screening: : Patient negative for fever greater than or equal to 101.5 degrees Fahrenheit, and additional compatible Ebola Virus Disease symptoms Patient denies exposure to infectious person Patient denies travel to an Ebola-affected area in the 21 days before illness onset No symptoms or risks identified at this time. Screenin:13 Abuse screen: Denies threats or abuse. Denies injuries from another. Nutritional mg2 screening: No deficits noted. Tuberculosis screening: No symptoms or risk factors identified. Fall Risk IV access (20 points). Assessment: 16:12 General: Appears in no apparent distress. comfortable, Behavior is calm, cooperative. mg2 Pain: Complains of pain in abdomen Pain does not radiate. Pain currently is 10 out of 10 on a pain scale. Quality of pain is described as aching, Pain began gradually, 2-3 days ago. Is intermittent. Neuro: Level of Consciousness is awake, alert, obeys commands, Oriented to person, place, time, situation. Cardiovascular: Capillary refill < 3 seconds Patient's skin is warm and dry. Respiratory: Airway is patent Respiratory effort is even, unlabored, Respiratory pattern is regular, symmetrical. GI: Bowel sounds present X 4 quads. Abd is soft and non tender. : see urine dip. EENT: No signs and/or symptoms were reported regarding the EENT system. Derm: Skin is intact, is healthy with good turgor, Skin is pink, warm \T\ dry. normal. Musculoskeletal: Circulation, motion, and sensation intact. Capillary refill < 3 seconds. 17:01 Reassessment: patient wants to go AMA just because he wants to go home. provider mg2 informed. AMA form not signed by the patient. Vital Signs: 15:51 BP 152 / 93; Pulse 123; Resp 19; Temp 98.8; Pulse Ox 97% on R/A; Weight 117.93 kg; aj Height 5 ft. 10 in. (177.80 cm); 16:30 BP 145 / 70; Pulse 110; Resp 18; Temp 98.5(O); Pulse Ox 100% on R/A; mg2 15:51 Body Mass Index 37.31 (117.93 kg, 177.80 cm) ED Course: 15:36 Patient arrived in ED. as 15:51 Triage completed. aj 15:51 Arm band placed on left wrist. Patient placed in an exam room. aj 16:02 Tay Fletcher PA is PHCP. cp 16:02 Tay Key MD is Attending Physician. cp 16:10 Román Vargas RN is Primary Nurse. mg2 16:11 No provider procedures requiring assistance completed. Inserted saline lock: 20 gauge mg2 in right antecubital area, using aseptic technique. Blood collected. 16:13 Patient has correct armband on for positive identification. Door closed. Warm blanket mg2 given. 17:01 IV discontinued, intact, bleeding controlled, No redness/swelling at site. Pressure mg2 dressing applied. Administered Medications: 16:46 Drug: Pepcid 20 mg Route: IVP; Site: right antecubital; mg2 16:59 Follow up: Response: No adverse reaction; Medication administered at discharge. mg2 16:51 Not Given (Patient Refused): NS 0.9% 1000 ml IV at 1 bolus Per protocol; 1000 mL bolus mg2 16:51 Not Given (Patient Refused): Banana Bag - (NS 0.9% 1000 ml, foLIC Acid 1 mg, Thiamine mg2 100 mg, Multivitamin 1 amp) IV at 200 ml/hr once 16:51 Drug: ProTONIX 40 mg Route: IVP; Site: right antecubital; mg2 16:59 Follow up: Response: No adverse reaction; Medication administered at discharge. mg2 17:00 Drug: Zofran 4 mg Route: IVP; Site: right antecubital; mg2 17:00 Follow up: Response: No adverse reaction; Medication administered at discharge. mg2 17:01 Drug: GI Cocktail without - (Maalox Suspension 30 ml, Lidocaine Liquid 2 % 15 mg2 ml) Route: PO; 17:01 Follow up: Response: No adverse reaction; Medication administered at discharge. mg2 Outcome: 17:03 AMA Left before signing form. mg2 17:03 Condition: stable 17:03 Instructed on the risk of leaving against medical advice and advised to come back when feeling worse. 17:11 Patient left the ED. mg2 Signatures: Jojo Sun RN RN Isabel Samuel as Page, Tay, PA PA cp Gardose, Román, RN RN mg2
[2018-09-26 17:49] VITALS: BP 145/70; TEMP 98.5; O2SAT 100
[2018-09-26 19:22] LABS: Blood Morphology Comment NOT SEEN (NOT SEEN); Platelet Estimate ADEQ; Urine White Blood Cell Casts OK
== END 2018-09-26 17:11 | disposition left against medical advice (07) ==
LOC: ER 15:35
DX: F10.229 Alcohol dependence with intoxication, unspecified (principal); F31.9 Bipolar disorder, unspecified
CPT/HCPCS: 36415; 81003; 85025; 96374; 96375; 99283; C9113; J2405; J3411; J7030

== ENCOUNTER 2018-09-26 19:41 | Emergency (ER) | payer OTHER, SELFPAY ==
--- OUTSIDE RECORDS SUMMARY | 2018-09-26 19:43 | XMS REPORT ---
:1970 [facility] [address] [place] [address] Dr. Valera [address] [place] [id number] Care Team Providers Name Role Phone UNKNOWN, REFFERING Primary Care Provider Unavailable Problems This patient has no known problems. Allergies, Adverse Reactions, Alerts This patient has no known allergies or adverse reactions. Medications This patient has no known medications. Encounters Start End Encounter Admission Attending Care Care Encounter Date/Time Date/Time Type Type Clinicians Facility Department ID 2016-06-11 Inpatient C [facility] [id number] 15:30:00
--- OUTSIDE RECORDS SUMMARY | 2018-09-26 19:43 | XMS REPORT | Clinical Summary ---
:1970 Author Organization [facility] Address [address] [place] [address] Care Team Providers Name Role Phone Asked, No Pcp Primary Care Provider Unavailable Allergies No Known Allergies Medications Not on file Active Problems Problem [...] Assigned at Date Recorded Not on file Job Start Date Occupation Industry Not on file Not on file Not on file Travel History Travel Start Travel End No recent travel history available. Last Filed Vital Signs Not on file Plan of Treatment Not on file Results Not on fileafter 09/25/2017 Advance Directives Patient has advance care planning documents on file. For more information, please contact:[id number] [place] [address]
[2018-09-26 20:38] LABS: Absolute Lymphocytes (CBC) 2.2 K/uL (0.7-4.9); Absolute Monocytes 0.5 K/uL (0.1-1.3); Absolute Neutrophil 7.7 K/uL (1.8-8.0); Basophils % 0.4 % (0-1.3); Hematocrit 40.4 % (39.6-49.0); Lymphocytes % 21.5 % (15.3-44.8); MPV 7.5 fL (7.6-11.3); RBC Red Blood Cell Count 5.09 M/uL (4.33-5.43)
[2018-09-26] MEDS ORDERED: PANTOPRAZOLE 40 MG INJ ONE (20:43)
[2018-09-26] MEDS ORDERED: ONDANSETRON 4 MG/2 ML VIAL ONE (20:43)
[2018-09-26 20:57] LABS: ALT/SGPT 96 U/L (12-78); AST/SGOT 104 U/L (15-37); Albumin 4.2 g/dL (3.4-5.0); Alkaline Phosphatase 72 U/L (45-117); BUN Blood Urea Nitrogen 8 mg/dL (7-18); Bicarbonate 23 mmol/L (21-32); Bilirubin Direct 0.2 mg/dL (0-0.2); Bilirubin Total 0.7 mg/dL (0.2-1.0); Glucose Level 91 mg/dL (74-106); Lipase 199 U/L (73-393); Potassium 3.3 mmol/L (3.5-5.1); Protein, Total 7.9 g/dL (6.4-8.2); Sodium Level 131 mmol/L (136-145)
--- NOTE | 2018-09-26 21:16 | EDPHYS ---
Physician Documentation [facility] Name: Frank Polo Age: 48 yrs Sex: Male : 1970 Arrival Date: 09/26/2018 Time: 19:46 Bed 28 Private MD: ED Physician Steven Odom HPI: 09/27 04:09 This 48 yrs old Male presents to ER via EMS with complaints of Abdominla pain tw4 nausea and vomiting. 04:09 The patient presents with abdominal pain. Onset: The symptoms/episode began/occurred tw4 today. The symptoms do not radiate. Associated signs and symptoms: none. The symptoms are described as sharp. Modifying factors: The symptoms are alleviated by nothing, the symptoms are aggravated by. Severity of pain: At its worst the pain was moderate. The patient has not experienced similar symptoms in the past. Historical: - Allergies: 09/26 19:52 NKDA; jd3 - Home Meds: 19:52 chlorpromazine 200 mg Oral tab [Active]; gabapentin 300 mg Oral cap 2 caps 3 times per jd3 day [Active]; meloxicam 15 mg Oral tab 1 tab once daily [Active]; mirtazapine 30 mg Oral tab 1 tab once daily for Major Depressive Disorder [Active]; Remeron Oral [Active]; Seroquel Oral [Active]; sertraline 100 mg Oral tab 1 tab once daily [Active]; trazodone 100 mg Oral tab nightly [Active]; - PMHx: 19:52 Alcoholism; Bipolar disorder; jd3 - PSHx: 19:52 left ankle surgery; jd3 - Immunization history:: Adult Immunizations up to date. - Social history:: Smoking status: Patient uses tobacco products, chewing tobacco. - Ebola Screening: : Patient negative for fever greater than or equal to 101.5 degrees Fahrenheit, and additional compatible Ebola Virus Disease symptoms. ROS: 09/27 04:09 Constitutional: Negative for fever, chills, and weight loss, Eyes: Negative for injury, tw4 pain, redness, and discharge, Cardiovascular: Negative for chest pain, palpitations, and edema, Respiratory: Negative for shortness of breath, cough, wheezing, and pleuritic chest pain, Back: Negative for injury and pain, MS/Extremity: Negative for injury and deformity. Skin: Negative for injury, rash, and discoloration. Abdomen/GI: Positive for abdominal pain, Negative for nausea and vomiting, nausea, vomiting, and diarrhea, nausea, vomiting, constipation, abdominal cramps, abdominal distension, anorexia, dysphagia, hematemesis, black/tarry stool. Exam: 04:09 Constitutional: This is a well developed, well nourished patient who is awake, alert, tw4 and in no acute distress. Head/Face: Normocephalic, atraumatic. Chest/axilla: Normal chest wall appearance and motion. Nontender with no deformity. No lesions are appreciated. Cardiovascular: Regular rate and rhythm with a normal S1 and S2. No gallops, murmurs, or rubs. Normal PMI, no JVD. No pulse deficits. Respiratory: Lungs have equal breath sounds bilaterally, clear to auscultation and percussion. No rales, rhonchi or wheezes noted. No increased work of breathing, no retractions or nasal flaring. Abdomen/GI: Soft, non-tender, with normal bowel sounds. No distension or tympany. No guarding or rebound. No evidence of tenderness throughout. Back: No spinal tenderness. No costovertebral tenderness. Full range of motion. MS/ Extremity: Pulses equal, no cyanosis. Neurovascular intact. Full, normal range of motion. Neuro: Awake and alert, GCS 15, oriented to person, place, time, and situation. Cranial nerves II-XII grossly intact. Motor strength 5/5 in all extremities. Sensory grossly intact. Cerebellar exam normal. Normal gait. Vital Signs: 09/26 19:53 BP 137 / 68; Pulse 110; Resp 17 S; Temp 98.2(O); Pulse Ox 97% on R/A; Weight 117.93 kg jd3 (R); Height 5 ft. 10 in. (177.80 cm) (R); Pain 9/10; 20:54 BP 128 / 81; Pulse 102; Resp 18 S; Pulse Ox 100% on R/A; jd3 19:53 Body Mass Index 37.31 (117.93 kg, 177.80 cm) jd3 MDM: 19:46 Patient medically screened. tw4 21:12 Data reviewed: vital signs, nurses notes. Counseling: I had a detailed discussion with tw4 the patient and/or guardian regarding: the historical points, exam findings, and any diagnostic results supporting the discharge/admit diagnosis. Special discussion: Based on the patient's Hx, exam, and Dx evaluation, there is no indication for emergent surgery or inpatient Tx. It is understood by the patient/guardian that if the Sx's persist or worsen they need to return immediately for re-evaluation. I discussed with the patient/guardian in detail that at this point there is no indication for admission to the hospital. It is understood, however, that if the symptoms persist or worsen the patient needs to return immediately for re-evaluation. 09/27 04:09 Differential diagnosis: gastritis, GI Bleed, Hepatitis, pancreatitis, Peptic Ulcer tw4 Disease, Perf. Duodenal Ulcer, Perf. Gastric Ulcer, Peritonitis. 09/26 19:55 Order name: Basic Metabolic Panel [facility] 09/26 19:55 Order name: CBC with Diff [facility] 09/26 19:55 Order name: Creatinine for Radiology [facility] 09/26 19:55 Order name: Hepatic Function [facility] 09/26 19:55 Order name: Lipase; Complete Time: 21:12 [facility] 09/26 21:12 Interpretation: Within normal limits: LIP 199. [facility] 09/26 19:55 Order name: Basic Metabolic Panel; Complete Time: 21:11 EDMS 09/26 21:11 Interpretation: NA 131; K 3.3; CL 94. [facility] 09/26 19:55 Order name: IV Saline Lock; Complete Time: 20:35 [facility] 09/26 19:55 Order name: Labs collected and sent; Complete Time: 20:35 [facility] 09/26 19:55 Order name: CBC with Automated Diff; Complete Time: 20:52 EDMS 09/26 21:12 Interpretation: WBC 10.5; MCV 79.5; MPV 7.5. [facility] 09/26 19:55 Order name: Creatinine (Radiology Only) EDMS Administered Medications: 09/26 20:36 Drug: Zofran 4 mg Route: IVP; Site: left forearm; la1 21:34 Follow up: Response: No adverse reaction jd3 20:36 Drug: ProTONIX 40 mg Route: IVP; Site: left forearm; la1 21:34 Follow up: Response: No adverse reaction jd3 Disposition: 09/26/18 21:15 Discharged to Home. Impression: Gastritis, unspecified, without bleeding. - Condition is Stable. - Discharge Instructions: Gastritis, Adult. - Prescriptions for Protonix 40 mg Oral Tablet - take 1 tablet by ORAL route once daily; 30 tablet. - Medication Reconciliation Form, Thank You Letter, Antibiotic Education, Prescription Opioid Use form. - Follow up: Private Physician; When: Upon discharge from the Emergency Department; Reason: If symptoms return, Recheck today's complaints, Continuance of care. - Problem is new. - Symptoms have improved. Signatures: Dispatcher [employer] EDHI Benedicto Greenberg RN RN la1 Keyshawn Armstrong RN RN jd3 Steven Odom MD MD tw4 Corrections: (The following items were deleted from the chart) 21:34 21:15 09/26/2018 21:15 Discharged to Home. Impression: Gastritis, unspecified, without jd3 bleeding. Condition is Stable. Forms are Medication Reconciliation Form, Thank You Letter, Antibiotic Education, Prescription Opioid Use. Follow up: Private Physician; When: Upon discharge from the Emergency Department; Reason: If symptoms return, Recheck today's complaints, Continuance of care. Problem is new. Symptoms have improved. tw4
--- NOTE | 2018-09-26 21:16 | ER ---
Nurse's Notes [facility] Name: Frank Polo Age: 48 yrs Sex: Male : 1970 Arrival Date: 09/26/2018 Time: 19:46 Bed 28 Private MD: Diagnosis: Gastritis, unspecified, without bleeding Presentation: 09/26 19:48 Presenting complaint: EMS states: "He was seen earlier today for nausea and vomiting jd3 and abdominal pain. He says the pain got worse and that feels like he might be going through withdraws.". Transition of care: patient was not received from another setting of care. Onset of symptoms was September 26, 2018. Risk Assessment: Do you want to hurt yourself or someone else? Patient reports no desire to harm self or others. Initial Sepsis Screen: Does the patient meet any 2 criteria? HR > 90 bpm. No. Patient's initial sepsis screen is negative. Does the patient have a suspected source of infection? No. Patient's initial sepsis screen is negative. Care prior to arrival: None. 19:48 Method Of Arrival: EMS: [facility] jd3 19:48 Acuity: PRANAV 3 jd3 Historical: - Allergies: 19:52 NKDA; jd3 - Home Meds: 19:52 chlorpromazine 200 mg Oral tab [Active]; gabapentin 300 mg Oral cap 2 caps 3 times per jd3 day [Active]; meloxicam 15 mg Oral tab 1 tab once daily [Active]; mirtazapine 30 mg Oral tab 1 tab once daily for Major Depressive Disorder [Active]; Remeron Oral [Active]; Seroquel Oral [Active]; sertraline 100 mg Oral tab 1 tab once daily [Active]; trazodone 100 mg Oral tab nightly [Active]; - PMHx: 19:52 Alcoholism; Bipolar disorder; jd3 - PSHx: 19:52 left ankle surgery; jd3 - Immunization history:: Adult Immunizations up to date. - Social history:: Smoking status: Patient uses tobacco products, chewing tobacco. - Ebola Screening: : Patient negative for fever greater than or equal to 101.5 degrees Fahrenheit, and additional compatible Ebola Virus Disease symptoms. Screenin:55 Abuse screen: Denies threats or abuse. Nutritional screening: No deficits noted. jd3 Tuberculosis screening: No symptoms or risk factors identified. Fall Risk Ambulatory Aid- None/Bed Rest/Nurse Assist (0 pts). Gait- Normal/Bed Rest/Wheelchair (0 pts) Mental Status- Oriented to own ability (0 pts). Total Riley Fall Scale indicates No Risk (0-24 pts). Assessment: 19:53 General: Appears uncomfortable, Behavior is calm, cooperative, appropriate for age, jd3 Reports trimers and "D-tox" symptoms. Pain: Complains of pain in abdomen Quality of pain is described as aching. Neuro: Level of Consciousness is awake, alert, obeys commands, Oriented to person, place, time, situation, Appropriate for age. Cardiovascular: Denies chest pain, Capillary refill Patient's skin is warm and dry. Respiratory: Airway is patent Respiratory effort is even, unlabored, Respiratory pattern is regular, symmetrical, Denies shortness of breath. GI: Abdomen is round Bowel sounds present X 4 quads. Abd is soft and non tender X 4 quads. Reports diarrhea, nausea, vomiting. : No signs and/or symptoms were reported regarding the genitourinary system. EENT: No signs and/or symptoms were reported regarding the EENT system. Derm: Skin is intact, Skin is dry, Skin is normal, Skin temperature is warm. Musculoskeletal: Circulation, motion, and sensation intact. Range of motion: intact in all extremities. 20:55 Reassessment: Patient appears in no apparent distress at this time. Patient and/or d3 family updated on plan of care and expected duration. Pain level reassessed. Patient is alert, oriented x 3, equal unlabored respirations, skin warm/dry/pink. pt continuing to report symptoms of "D-tox," provider notified. no new orders at this time. 21:33 Reassessment: Patient appears in no apparent distress at this time. Patient and/or jd3 family updated on plan of care and expected duration. Pain level reassessed. Patient is alert, oriented x 3, equal unlabored respirations, skin warm/dry/pink. pt left before signing discharge paperwork. Vital Signs: 19:53 BP 137 / 68; Pulse 110; Resp 17 S; Temp 98.2(O); Pulse Ox 97% on R/A; Weight 117.93 kg j (R); Height 5 ft. 10 in. (177.80 cm) (R); Pain 9/10; 20:54 BP 128 / 81; Pulse 102; Resp 18 S; Pulse Ox 100% on R/A; jd3 19:53 Body Mass Index 37.31 (117.93 kg, 177.80 cm) jd3 ED Course: 19:46 Patient arrived in ED. am2 19:46 Steven Odom MD is Attending Physician. tw4 19:48 Keyshawn Armstrong RN is Primary Nurse. jd3 19:50 Triage completed. jd3 19:53 Arm band placed on. jd3 19:55 Patient has correct armband on for positive identification. Bed in low position. Call jd3 light in reach. Side rails up X2. 20:15 Missed attempt(s): 20 gauge in right antecubital area. Bleeding controlled, band aid jd3 applied, catheter tip intact. 20:20 Missed attempt(s): 20 gauge in left antecubital area. Bleeding controlled, band aid jd3 applied, catheter tip intact. 20:30 Inserted saline lock: 22 gauge in left forearm, using aseptic technique. Blood la1 collected. 21:33 No provider procedures requiring assistance completed. IV discontinued, intact, jd3 bleeding controlled, No redness/swelling at site. Pressure dressing applied. Administered Medications: 20:36 Drug: Zofran 4 mg Route: IVP; Site: left forearm; la1 21:34 Follow up: Response: No adverse reaction jd3 20:36 Drug: ProTONIX 40 mg Route: IVP; Site: left forearm; la1 21:34 Follow up: Response: No adverse reaction jd3 Outcome: 21:15 Discharge ordered by . tw4 21:33 Discharged to home ambulatory, with friend. jd3 21:33 Condition: stable 21:33 Discharge instructions given to patient, Instructed on discharge instructions, follow up and referral plans. medication usage, Demonstrated understanding of instructions, follow-up care, medications, Prescriptions given X 1. 21:34 Patient left the ED. jd3 Signatures: Benedicto Greenberg, RN RN la1 Jojo Koo am2 Keyshawn Armstrong RN RN jd3 Steven Odom MD MD tw4 Corrections: (The following items were deleted from the chart) 20:57 19:53 General: Appears uncomfortable, Behavior is calm, cooperative, appropriate for jd3 age, jd3
== END 2018-09-26 21:34 | disposition home or self-care (01) ==
LOC: ER 19:41
DX: K29.70 Gastritis, unspecified, without bleeding (principal); F10.20 Alcohol dependence, uncomplicated; F31.9 Bipolar disorder, unspecified; Z72.0 Tobacco use
CPT/HCPCS: 85025; 80048; 36415; 80076; 83690; 96375; 96374; 99284; C9113; J2405

== ENCOUNTER 2019-07-10 19:10 | Emergency (ER) | payer OTHER ==
--- OUTSIDE RECORDS SUMMARY | 2019-07-10 19:13 | XMS REPORT ---
:1970 [facility] Address [address] [place] [address] Care Team Providers Name Role Phone UNKNOWN, REFFERING Primary Care Provider Unavailable Problems This patient has no known problems. Allergies, Adverse Reactions, Alerts This patient has no known allergies or adverse reactions. Medications This patient has no known medications. Encounters Start End Encounter Admission Attending Care Care Encounter Date/Time Date/Time Type Type Clinicians Facility Department ID 2016-06-11 Inpatient C [facility] [id number] 15:30:00
--- OUTSIDE RECORDS SUMMARY | 2019-07-10 19:13 | XMS REPORT | Summary of Care ---
:1970 Author Organization [facility] Address [address] [place] [address] Care Team Providers Name Role Phone Pcp, Patient Does Not Have A Primary Care Provider Reason for Visit Reason Comments Follow-up Hospital Follow up Encounter Details Date Type Department Care Team Description 06/01/[address] [facility] Melchor Ledesma MD Type 2 DE (myocardial infarction) (Primary Dx); Cardiology- [address] Obesity (BMI 30-39.9); [address] [place] [address] DRIVE Essential hypertension; Drive, [address] Atherosclerosis of [place] coronary artery of [place] heart [place] [address] [phone] Allergies No Known Allergiesdocumented as of this encounter (statuses as of 06/01/2019) Medications Medication Sig Dispensed Refills Start Date End Date Status mirtazapine Take 30 mg by 0 Active (REMERON) 30 mg mouth at tablet bedtime. gabapentin Take 600 mg 0 Active (NEURONTIN) 300 mg by mouth 3 capsule (three) times daily. QUEtiapine Take 300 mg 0 Active (SEROQUEL) 300 mg by mouth tablet every evening. aspirin 81 mg Take 1 tablet 90 tablet 3 05/18/2019 Active chewable by mouth tabletIndications: daily. Type 2 DE (myocardial infarction) atorvastatin 40 mg Take 1 tablet 30 tablet 2 05/17/2019 Active tabletIndications: by mouth at Type 2 DE bedtime. (myocardial infarction) nitroglycerin 0.[address] 1 1 Bottle 0 05/17/2019 Active sublingual tablet under tabletIndications: the tongue Type 2 DE every 5 (myocardial (five) infarction) minutes as needed for Chest pain. oxazepam 15 mg Take 1 6 capsule 0 05/17/2019 Active capsuleIndications: capsule by Alcohol abuse mouth every 4 (four) hours as needed for Anxiety. PRN metoprolol tartrate Take 1 tablet 60 tablet 3 05/17/2019 Active 50 mg by mouth 2 tabletIndications: (two) times Type 2 DE daily. (myocardial infarction), Secondary hypertension lisinopril 2.5 mg Take 1 tablet 30 tablet 1 05/18/2019 06/01/2019 Discontinued tabletIndications: by mouth Type 2 DE daily. (myocardial infarction) documented as of this encounter (statuses as of 06/01/2019) Active Problems Problem Noted Date NSTEMI (non-ST elevated myocardial infarction) 05/17/2019 Obesity (BMI 30-39.9) 05/17/2019 Type 2 DE (myocardial infarction) 05/17/2019 Secondary hypertension 05/17/2019 Depression 07/04/2012 Acute respiratory failure 07/04/2012 Tobacco abuse disorder 07/04/2012 Alcohol abuse 07/04/2012 Heroin use 07/04/2012 Anxiety disorder 07/04/2012 Suicidal ideation 09/24/2011 documented as of this encounter (statuses as of 06/01/2019) Social History Tobacco Use Types Packs/Day Years Used Date Former Smoker Smokeless Tobacco: Current User Chew Alcohol Use Drinks/Week oz/Week Comments Not Currently 12 Cans of beer 12.0 Sex Assigned at Date Recorded Not on file Job Start Date Occupation Industry Not on file Not on file Not on file Travel History Travel Start Travel End No recent travel history available. documented as of this encounter Last Filed Vital Signs Vital Sign Reading Time Taken Comments Blood Pressure 130/90 06/01/2019 1:53 PM [employer] Pulse 78 06/01/2019 1:53 PM FAMILY [employer] Temperature - - Respiratory Rate 19 06/01/2019 1:53 PM FAMILY [employer] Oxygen Saturation 97% 06/01/2019 1:53 PM FAMILY [employer] Inhaled Oxygen Concentration - - Weight 122.2 kg (269 lb 4.8 oz) 06/01/2019 1:53 PM FAMILY HEL[employer] Height 177.8 cm (5' 10") 06/01/2019 1:53 PM FAMILY HELPER Body Mass Index 38.64 06/01/2019 1:53 PM FAMILY HEL[employer] documented in this encounter Patient Instructions Patient InstructionsMelchor Ledesma MD - 06/01/2019 2:00 PM CSTStop lisinopril LY HELPER documented in this encounter Progress Notes Melchor Ledesma MD - 06/01/2019 2:00 PM CST CARDIOLOGY CLINIC NOTE 06/01/2019 Reason for Referral/Presenting Complaint: type 2 DE follow up PCP: PATIENT DOES NOT HAVE A PCP History of Present Illness: Frank Polo is a 48 years old male with history of obesity. In 04/2019 he was admitted to [facility] for chest pain and mild troponin elevation in the setting of alcohol withdrawal. LHC showed no significant CAD. Was started ASA/ lipitor/metoprolol/lisinopril. His BP has been 110/60s. Mild dizziness. + Anxiety. Cardiovascular testing: EKG: Normal sinus rhythm. Normal EKG. Echocardiogram: Ejection Fraction=60-65%. Diastolic function is impaired relaxation. Insufficient Tricuspid regurgitation jet to estimate RVSP. IVC is not well visualized. Cardiac Cath: Patent Coronaries ( mild non-obstructive Plaque) and normal hemodynamics Review of Systems: General: (-) fever, (-) chills, (-) weight change, (-) dizziness, (-) fatigue Skin: (-) rash HEENT: (-) headache, (-) change in vision Neck: (-) difficulty swallowing Heme: negative Resp: (-) cough, (-) dyspnea on exertion Cardio: (-) chest pain, (-) palpitations, (-) syncope GI: (-) vomiting, (-) diarrhea : negative Endo: (-) diabetes, (-) thyroid disease Neuro: (-) numbness, (-) tingling, (-) weakness Back: (-) pain FABIAN: (-) muscle pain, (-) claudication Psych: (-) anxiety, (-) depression Past Medical History: Past Medical History: Diagnosis Date Alcohol abuse Anxiety Bipolar 1 disorder Hypertension Suicidal ideation 09/24/2011 Current Medications: Current Outpatient Medications Medication Sig Dispense Refill aspirin 81 mg chewable tablet Take 1 tablet by mouth daily. 90 tablet 3 atorvastatin 40 mg tablet Take 1 tablet by mouth at bedtime. 30 tablet 2 metoprolol tartrate 50 mg tablet Take 1 tablet by mouth 2 (two) times daily. 60 tablet 3 QUEtiapine (SEROQUEL) 300 mg tablet Take 300 mg by mouth every evening. gabapentin (NEURONTIN) 300 mg capsule Take 600 mg by mouth 3 (three) times daily. mirtazapine (REMERON) 30 mg tablet Take 30 mg by mouth at bedtime. nitroglycerin 0.[address] 1 tablet under the tongue every 5 (five) minutes as needed for Chest pain. 1 Bottle 0 oxazepam 15 mg capsule Take 1 capsule by mouth every 4 (four) hours as needed for Anxiety. PRN 6capsule 0 No current facility-administered medications for this visit. Social History: Social History Socioeconomic History Marital status: Spouse name: Not on file Number of children: Not on file Years of education: Not on file Highest education level: Not on file Occupational History Not on file Social Needs Financial resource strain: Not on file Food insecurity: Worry: Not on file Inability: Not on file Transportation needs: Medical: Not on file Non-medical: Not on file Tobacco Use Smoking status: Former Smoker Smokeless tobacco: Current User Types: Chew Substance and Sexual Activity Alcohol use: Not Currently Alcohol/week: 12.0 standard drinks Types: 12 Cans of beer per week Drug use: Not Currently Sexual activity: Not on file Lifestyle Physical activity: Days per week: Not on file Minutes per session: Not on file Stress: Not on file Relationships Social connections: Talks on phone: Not on file Gets together: Not on file Attends baptist service: Not on file Active member of club or organization: Not on file Attends meetings of clubs or organizations: Not on file Relationship status: Not on file Intimate partner violence: Fear of current or ex partner: Not on file Emotionally abused: Not on file Physically abused: Not on file Forced sexual activity: Not on file Other Topics Concern Not on file Social History Narrative Not on file Family History Family History Problem Relation Age of Onset Coronary Heart Disease Father Physical Examination: BP 130/90 (BP Location: Left arm, Patient Position: Sitting, BP CUFF SIZE: Adult Large) | Pulse 78| Resp 19 | Ht 5' 10" (1.778 m) | Wt 269 lb 4.8 oz ( 122.2 kg) | SpO2 97% | BMI 38.64 kg/m Constitutional: alert and oriented x 3 (person, place and date/time); no apparent distress, obese ENT: normocephalic atraumatic, supple, no lymphadenopathy, no bruits, no JVD Lungs: clear to auscultation bilaterally Cardiovascular: S1, S2 normal, regular; no murmurs, rubs or gallops GI: soft; non-tender; non-distended; normoactive bowel sounds : not examined Musculoskeletal: Extremities: no clubbing, cyanosis, or edema Skin: no rashes Neuro: no focal deficits Assessment/Plan: ICD-10-CM ICD-9-CM 1. Type 2 DE (myocardial infarction) I21.A1 410.90 2. Obesity (BMI 30-39.9) E66.9 278.00 3. Essential hypertension I10 401.9 4. Atherosclerosis of [place] coronary artery of [place] heart without angina pectoris I25.10 414.01 Type 2 DE--due to alcohol withdrawal. HTN--BP relatively low with mild dizziness. Will stop lisinopril. Coronary artery atherosclerosis--ASA and liptor. Patient was counseled for lifestyle modifications including: diet, exercise and weight loss. RTC 6 months Melchor Ledesma MD, FACC, ANUSH[place] [employer], Division of Cardiology [facility] documented in this encounter Plan of Treatment Date Type Specialty Care Team Description 08/16/2019 Office Visit Family Medicine Chago Owen MD [address] [place] [address] [address] [place], [place] [id number] 11/30/2019 Office Visit Cardiology Melchor Ledesma MD [address] [place] [address] [address] [place], [place] [id number] Health Maintenance Due Date Last Done Comments DTaP,Tdap,and Td Vaccines (1 - 1983 Tdap) INFLUENZA VACCINE (#1) 2020 Postponed from 01/16/2019 (Refused) PNEUMOCOCCAL 0-64 YEARS COMBINED 06/01/2020 Postponed from 1978 SERIES (1 of 1 - PPSV23) (Refused) documented as of this encounter Results Not on filedocumented in this encounter Visit Diagnoses Diagnosis Type 2 DE (myocardial infarction) - Primary Obesity (BMI 30-39.9) Obesity, unspecified Essential hypertension Unspecified essential hypertension Atherosclerosis of [place] coronary artery of [place] heart without angina pectoris documented in this encounter Insurance Payer Benefit Plan / Subscriber ID Effective Dates Phone Address Type Group MEDICARE MEDICARE PART xxxxxxxxxxx 2017-Luigi [phone] [id number] [place] [id number] documented as of this encounter
--- OUTSIDE RECORDS SUMMARY | 2019-07-10 19:14 | XMS REPORT | Summary of Care ---
:1970 Author Organization [facility] Address [address] [place] [address] Care Team Providers Name Role Phone Pcp, Patient Does Not Have A Primary Care Provider Reason for Visit Reason Comments Follow-up Hospital Follow up Encounter Details Date Type Department Care Team Description 06/01/2019 Office Visit [facility] Melchor Ledesma MD Type 2 [place] (myocardial infarction) (Primary Dx); Cardiology- [address] Obesity (BMI 30-39.9); [address] [place] [address] DRIVE Essential hypertension; Drive, [address] Atherosclerosis of [place] coronary artery of [place] heart [place] [address] [phone] Allergies No Known Allergiesdocumented as of this [...] chewable by mouth tabletIndications: daily. Type 2 [place] (myocardial infarction) atorvastatin 40 mg Take 1 tablet 30 tablet 2 05/17/2019 Active tabletIndications: by mouth at Type 2 [place] bedtime. (myocardial infarction) nitroglycerin 0.[address] 1 1 Bottle 0 05/17/2019 Active sublingual tablet under tabletIndications: the tongue Type 2 [place] every 5 (myocardial (five) infarction) minutes as needed for Chest pain. oxazepam 15 mg Take 1 6 capsule 0 05/17/2019 Active capsuleIndications: capsule by Alcohol abuse mouth every 4 (four) hours as needed for Anxiety. PRN metoprolol tartrate Take 1 tablet 60 tablet 3 05/17/2019 Active 50 mg by mouth 2 tabletIndications: (two) times Type 2 [place] daily. (myocardial infarction), Secondary hypertension lisinopril 2.5 mg Take 1 tablet 30 tablet 1 05/18/2019 06/01/2019 Discontinued tabletIndications: by mouth Type 2 [place] daily. (myocardial infarction) documented as of this encounter (statuses as of 06/01/2019) Active Problems Problem Noted Date NSTEMI (non-ST elevated myocardial infarction) 05/17/2019 Obesity (BMI 30-39.9) 05/17/2019 Type 2 [place] (myocardial infarction) 05/17/2019 Secondary hypertension 05/17/2019 Depression [...] Comments Blood Pressure 130/90 06/01/2019 1:53 PM [facility] Pulse 78 06/01/2019 1:53 PM [facility] Temperature - - Respiratory Rate 19 06/01/2019 1:53 PM [facility] Oxygen Saturation 97% 06/01/2019 1:53 PM [facility] Inhaled Oxygen Concentration - - Weight 122.2 kg (269 lb 4.8 oz) 06/01/2019 1:53 PM [facility] Height 177.8 cm (5' 10") 06/01/2019 1:53 PM [facility] Body Mass Index 38.64 06/01/2019 1:53 PM [facility] documented in this encounter Patient Instructions Patient InstructionsMelchor Ledesma MD - 06/01/2019 2:00 PM CSTStop lisinopril TAL GRINDER documented in this encounter Progress Notes Melchor Ledesma MD - 06/01/2019 2:00 PM CST CARDIOLOGY CLINIC NOTE 06/01/2019 Reason for Referral/Presenting Complaint: type 2 AL follow up PCP: PATIENT DOES NOT HAVE A PCP History of Present Illness: Frank Polo is a 48 years old male with history of obesity. In 04/2019 he was admitted to [facility] for chest pain and mild troponin elevation [...] file Gets together: Not on file Attends [employer] service: Not on file Active member of [...] deficits Assessment/Plan: ICD-10-CM ICD-9-CM 1. Type 2 AL (myocardial infarction) I21.A1 410.90 2. Obesity (BMI 30-39.9) E66.9 278.00 3. Essential hypertension I10 401.9 4. Atherosclerosis of [place] coronary artery of [place] heart without angina pectoris I25.10 414.01 Type 2 AL--due to alcohol withdrawal. HTN--BP relatively low with mild dizziness. Will stop lisinopril. Coronary artery atherosclerosis--ASA and liptor. Patient was counseled for lifestyle modifications including: diet, exercise and weight loss. RTC 6 months Melchor Ledesma MD, FACC, [employer], Division of Cardiology [facility] documented in this encounter Plan of Treatment Date Type Specialty Care Team Description 08/16/2019 Office Visit Family Medicine Chago Owen MD [address] [place] [address] Dr [address] [place], [place] [id number] 11/30/2019 Office Visit Cardiology Melchor Ledesma MD [address] [place] [address] [address] [place], [place] [phone] Health Maintenance Due Date Last Done Comments DTaP,Tdap,and Td Vaccines (1 - 1983 Tdap) INFLUENZA VACCINE (#1) 2020 Postponed from 01/16/2019 (Refused) PNEUMOCOCCAL 0-64 YEARS COMBINED 06/01/2020 Postponed from 1978 SERIES (1 of 1 - PPSV23) (Refused) documented as of this encounter Results Not on filedocumented in this encounter Visit Diagnoses Diagnosis Type 2 AL (myocardial infarction) - Primary Obesity (BMI 30-39.9) Obesity, unspecified Essential hypertension Unspecified essential hypertension Atherosclerosis of [place] coronary artery of [place] heart without angina pectoris documented in this encounter Insurance Payer Benefit Plan / Subscriber ID Effective Dates Phone Address Type Group MEDICARE MEDICARE PART xxxxxxxxxxx 2017-Luigi [phone] [address] Medicare [address] & B t 2 [id number] RUTHANN PORTER [id number] documented as of this encounter
--- OUTSIDE RECORDS SUMMARY | 2019-07-10 19:14 | XMS REPORT | Summary of Care ---
:1970 Author Organization [facility] Address [address] [place] [address] Care Team Providers Name Role Phone Pcp, Patient Does Not Have A Primary Care Provider Reason for Visit Reason Comments Notification Encounter Details Date Type Department Care Team Description 06/13/2019 Telephone [facility] Pediatric and Chago Owen MD Notification Adult Primary Care- [address] [place] [address] Dr [place] [facility] [address] [place] [address] , [place], [place] [address] [address] [place] [address] [phone] Allergies No Known Allergiesdocumented as of this encounter (statuses as of 06/15/2019) Medications Medication Sig Dispensed Refills Start Date End Date Status mirtazapine (REMERON) Take 30 mg by 0 Active 30 mg tablet mouth at bedtime. gabapentin (NEURONTIN) Take 600 mg by 0 Active 300 mg capsule mouth 3 (three) times daily. QUEtiapine (SEROQUEL) Take 300 mg by 0 Active 300 mg tablet mouth every evening. aspirin 81 mg chewable Take 1 tablet by 90 tablet 3 05/18/2019 Active tabletIndications: Type mouth daily. 2 [place] (myocardial infarction) atorvastatin 40 mg Take 1 tablet by 30 tablet 2 05/17/2019 Active tabletIndications: Type mouth at bedtime. 2 [place] (myocardial infarction) nitroglycerin 0.[address] 1 tablet 1 Bottle 0 05/17/2019 Active sublingual under the tongue tabletIndications: Type every 5 (five) 2 [place] (myocardial minutes as needed infarction) for Chest pain. oxazepam 15 mg Take 1 capsule by 6 capsule 0 05/17/2019 Active capsuleIndications: mouth every 4 Alcohol abuse (four) hours as needed for Anxiety. PRN metoprolol tartrate 50 Take 1 tablet by 60 tablet 3 05/17/2019 Active mg tabletIndications: mouth 2 (two) Type 2 [place] (myocardial times daily. infarction), Secondary hypertension documented as of this encounter (statuses as of 06/15/2019) Active Problems Problem Noted Date NSTEMI (non-ST elevated myocardial infarction) 05/17/2019 Obesity (BMI 30-39.9) 05/17/2019 Type 2 [place] (myocardial infarction) 05/17/2019 Secondary hypertension 05/17/2019 Depression 07/04/2012 Acute respiratory failure 07/04/2012 Tobacco abuse disorder 07/04/2012 Alcohol abuse 07/04/2012 Heroin use 07/04/2012 Anxiety disorder 07/04/2012 Suicidal ideation 09/24/2011 documented as of this encounter (statuses as of 06/15/2019) Social History Tobacco Use Types Packs/Day Years [...] of this encounter Last Filed Vital Signs Not on filedocumented in this encounter Plan of Treatment Date Type Specialty Care Team Description 08/16/2019 Office Visit Family Medicine Chago Owen MD [address] [place] [address] Dr [address] [place] [address] 11/30/2019 Office Visit Cardiology Melchor Ledesma MD [address] [place] [address] [address] [place], [place] [phone] Health Maintenance Due Date Last Done Comments DTaP,Tdap,and Td Vaccines (1 - 1983 Tdap) INFLUENZA VACCINE (#1) 2020 Postponed from 01/16/2019 (Refused) PNEUMOCOCCAL 0-64 YEARS COMBINED 06/01/2020 Postponed from 1978 SERIES (1 of 1 - PPSV23) (Refused) documented as of this encounter Results Not on filedocumented in this encounter Insurance Payer Benefit Plan / Subscriber ID Effective Dates Phone Address Type Group MEDICARE MEDICARE PART xxxxxxxxxxx 2017-Luigi [phone] [address] Medicare A & B t 2 [id number] [place] RIVARUTHANN [id number] documented as of this encounter
--- OUTSIDE RECORDS SUMMARY | 2019-07-10 19:15 | XMS REPORT | Summary of Care ---
:1970 Author Organization [facility] - Health Address [address] [place] [address] Care Team Providers Name Role Phone Chago Owen MD Primary Care Provider Encounter Details Date Type Department Care Team Description 07/10/2019 Orders Only [facility] Doctor Unassigned, No [address] [facility] [place] [address] [address] [place] [address] Allergies No Known Allergiesdocumented as of this encounter (statuses as of 07/10/2019) Medications Medication Sig Dispensed Refills Start Date End Date Status mirtazapine (REMERON) Take 30 mg by 0 Active 30 mg tablet mouth at bedtime. gabapentin (NEURONTIN) Take 600 mg by 0 Active 300 mg capsule mouth 3 (three) times daily. aspirin 81 mg chewable Take 1 tablet by 90 tablet 3 05/18/2019 Active tabletIndications: mouth daily. Type 2 [place] (myocardial infarction) atorvastatin 40 mg Take 1 tablet by 30 tablet 2 05/17/2019 Active tabletIndications: mouth at Type 2 [place] (myocardial bedtime. infarction) nitroglycerin 0.[address] 1 tablet 1 Bottle 0 05/17/2019 Active sublingual under the tongue tabletIndications: every 5 (five) Type 2 [place] (myocardial minutes as infarction) needed for Chest pain. metoprolol tartrate 50 Take 1 tablet by 60 tablet 3 05/17/2019 Active mg tabletIndications: mouth 2 (two) Type 2 [place] (myocardial times daily. infarction), Secondary hypertension foLIC acid 1 mg Take 1 tablet by 30 tablet 0 07/05/2019 08/04/2019 Active tabletIndications: mouth daily for Alcohol withdrawal 30 days. syndrome without complication LORazepam 1 mg Take 1 tablet by 21 tablet 0 07/04/2019 Active tabletIndications: mouth 3 (three) Alcohol withdrawal times daily as syndrome without needed for complication Anxiety or Agitation. lisinopril 20 mg Take 1 tablet by 30 tablet 2 07/04/2019 08/03/2019 Active tabletIndications: mouth daily for Essential hypertension 30 days. traMADol 50 mg Take 1 tablet by 21 tablet 0 07/04/2019 Active tabletIndications: mouth every 6 Chest pain, (six) hours as unspecified type, needed for Pain Closed fracture of (scale 4-6). multiple ribs of left side, initial encounter thiamine 100 mg Take 1 tablet by 30 tablet 0 07/05/2019 08/04/2019 Active tabletIndications: mouth daily for Alcohol withdrawal 30 days. syndrome without complication documented as of this encounter (statuses as of 07/10/2019) Active Problems Problem Noted Date Elevated blood pressure reading 07/03/2019 Tachycardia 07/03/2019 Nonobstructive atherosclerosis of coronary artery 07/03/2019 Essential hypertension 07/03/2019 Atypical chest pain 07/03/2019 Alcohol withdrawal 07/02/2019 NSTEMI (non-ST elevated myocardial infarction) 05/17/2019 Obesity (BMI 30-39.9) 05/17/2019 Type 2 [place] (myocardial infarction) 05/17/2019 Secondary hypertension 05/17/2019 Depression 07/04/2012 Acute respiratory failure 07/04/2012 Tobacco abuse disorder 07/04/2012 Alcohol abuse 07/04/2012 Heroin use 07/04/2012 Anxiety disorder 07/04/2012 Suicidal ideation 09/24/2011 documented as of this encounter (statuses as of 07/10/2019) Social History Tobacco Use Types Packs/Day Years [...] Treatment Date Type Specialty Care Team Description 07/12/2019 Office Visit Family Medicine Chago Owen MD [address] [place] [address] [place] [address] [phone] Health Maintenance Due Date Last Done Comments DTaP,Tdap,and Td Vaccines (1 - 1983 Tdap) INFLUENZA VACCINE (#1) 2020 Postponed from 01/16/2019 (Refused) PNEUMOCOCCAL 0-64 YEARS COMBINED 06/01/2020 Postponed from 1978 SERIES (1 of 1 - PPSV23) (Refused) documented as of this encounter Procedures Procedure Name Priority Date/Time Associated Diagnosis Comments CONSENT/REFUSAL FOR Routine 07/10/2019 5:29 PM KNOCKOUT MAN DIAGNOSIS AND TREATMENT documented in this encounter Results Not on filedocumented in this encounter Insurance Payer Benefit Plan / Subscriber ID Effective Dates Phone Address Type Group MEDICARE MEDICARE PART xxxxxxxxxxx 2017-Luigi [phone] [address] Medicare A & B t 2 [id number] LOG[place] CRABTREERUTHANN [id number] documented as of this encounter
--- OUTSIDE RECORDS SUMMARY | 2019-07-10 19:15 | XMS REPORT | Summary of Care ---
:1970 Author Organization [facility] Address [address] [place] [id number] Care Team Providers Name Role Phone Sadaf Owen MD Primary Care Provider Reason for Referral (Routine) Status Reason Specialty Diagnoses / Referred By Referred To Procedures Contact Contact New Request PN-PSYCHIATRY Diagnoses Chest pain, unspecified type Desean Hale MD Procedures Discharge Follow-Up: Specialty Service PN-PSYCHIATRY; 2 Weeks [address] [place] [address] Other (Routine) Status Reason Specialty Diagnoses / Referred By Referred To Procedures Contact Contact New Request Diagnoses Chest pain, unspecified type Desean Hale MD Cai, Qiangjun, MD Procedures Discharge Follow-up: Specialty Provider MELCHOR SANCHES; 4-6 Weeks [address] [address] [address] Phone: [place], [place] [phone] (Routine) Status Reason Specialty Diagnoses / Referred By Referred To Procedures Contact Contact New Request Diagnoses Chest pain, unspecified type Desean Hale MD Edemekong, Peter, Procedures Discharge Follow-up: PCP SADAF OWEN; 1 Week [address] [address] Phone: [place] [address] [place] [address] Radiology Services (STAT) Status Reason Specialty Diagnoses / Referred By Referred To Procedures Contact Contact New Request Diagnostic Diagnoses Chest pain, unspecified type Dwight Alanis, Radiology Procedures Chest [address] [place] [address] [place] [address] Radiology Services (STAT) Status Reason Specialty Diagnoses / Referred By Referred To Procedures Contact Contact New Request Diagnostic Diagnoses Chest pain, unspecified type Dwight Alanis, Radiology Procedures XR RIBS 3 VW LEFT [address] [place] [place] [address] [place] [address] Reason for Visit Reason Comments Chest Pain Shortness of Breath Rib Pain L; fall 2 days ago Auth/Cert Status Reason Specialty Diagnoses / Referred By Referred To Procedures Contact Contact Emergency Medicine Diagnoses CHEST PAIN [facility] Emergency Dept [address] [place] [address] [place] [address] Encounter Details Date Type Department Care Team Description 07/02/2019 - [facility] Medicine Dwight Alanis MD [address] [place] [address] [place] [address] [phone] Alcohol withdrawal 07/04/2019 Encounter Surgery Unit Desean Hale MD [address] [place] [phone] [place] [address] [place] [address] Allergies No Known Allergiesdocumented as of this encounter (statuses as of 07/04/2019) Medications Medication Sig Dispensed Refills Start Date End Date Status mirtazapine Take 30 mg by 0 Active (REMERON) 30 mg mouth at tablet bedtime. gabapentin Take 600 mg 0 Active (NEURONTIN) 300 mg by mouth 3 capsule (three) times daily. aspirin 81 mg Take 1 tablet 90 tablet 3 05/18/2019 Active chewable by mouth tabletIndications: daily. Type 2 MD (myocardial infarction) atorvastatin 40 mg Take 1 tablet 30 tablet 2 05/17/2019 Active tabletIndications: by mouth at Type 2 MD bedtime. (myocardial infarction) nitroglycerin 0.[address] 1 1 Bottle 0 05/17/2019 Active sublingual tablet under tabletIndications: the tongue Type 2 MD every 5 (myocardial (five) infarction) minutes as needed for Chest pain. metoprolol tartrate Take 1 tablet 60 tablet 3 05/17/2019 Active 50 mg by mouth 2 tabletIndications: (two) times Type 2 MD daily. (myocardial infarction), Secondary hypertension foLIC acid 1 mg Take 1 tablet 30 tablet 0 07/05/2019 08/04/2019 Active tabletIndications: by mouth Alcohol withdrawal daily for 30 syndrome without days. complication LORazepam 1 mg Take 1 tablet 21 tablet 0 07/04/2019 Active tabletIndications: by mouth 3 Alcohol withdrawal (three) times syndrome without daily as complication needed for Anxiety or Agitation. lisinopril 20 mg Take 1 tablet 30 tablet 2 07/04/2019 08/03/2019 Active tabletIndications: by mouth Essential daily for 30 hypertension days. traMADol 50 mg Take 1 tablet 21 tablet 0 07/04/2019 Active tabletIndications: by mouth Chest pain, every 6 (six) unspecified type, hours as Closed fracture of needed for multiple ribs of Pain (scale left side, initial 4-6). encounter thiamine 100 mg Take 1 tablet 30 tablet 0 07/05/2019 08/04/2019 Active tabletIndications: by mouth Alcohol withdrawal daily for 30 syndrome without days. complication QUEtiapine Take 300 mg 0 07/04/2019 Discontinued (SEROQUEL) 300 mg by mouth tablet every evening. oxazepam 15 mg Take 1 6 capsule 0 05/17/2019 07/04/2019 Discontinued capsuleIndications: capsule by Alcohol abuse mouth every 4 (four) hours as needed for Anxiety. PRN documented as of this encounter (statuses as of 07/04/2019) Active Problems Problem Noted Date Elevated blood pressure reading 07/03/2019 Tachycardia 07/03/2019 Nonobstructive atherosclerosis of coronary artery 07/03/2019 Essential hypertension 07/03/2019 Atypical chest pain 07/03/2019 Alcohol withdrawal 07/02/2019 NSTEMI (non-ST elevated myocardial infarction) 05/17/2019 Obesity (BMI 30-39.9) 05/17/2019 Type 2 MD (myocardial infarction) 05/17/2019 Secondary hypertension 05/17/2019 Depression 07/04/2012 Acute respiratory failure 07/04/2012 Tobacco abuse disorder 07/04/2012 Alcohol abuse 07/04/2012 Heroin use 07/04/2012 Anxiety disorder 07/04/2012 Suicidal ideation 09/24/2011 documented as of this encounter (statuses as of 07/04/2019) Social History Tobacco Use Types Packs/Day Years [...] Sign Reading Time Taken Comments Blood Pressure 158/106 07/04/2019 3:00 PM DRESSING MACHINE OPERATOR Pulse 98 07/04/2019 3:00 PM DRESSING MACHINE OPERATOR Temperature 36.7 C (98 F) 07/04/2019 3:00 PM DRESSING MACHINE OPERATOR Respiratory Rate 20 07/04/2019 3:00 PM DRESSING MACHINE OPERATOR Oxygen Saturation 99% 07/04/2019 3:00 PM DRESSING MACHINE OPERATOR Inhaled Oxygen Concentration - - Weight 117.9 kg (260 lb) 07/02/2019 3:10 PM DRESSING MACHINE OPERATOR Height 177.8 cm (5' 10") 07/02/2019 3:10 PM DRESSING MACHINE OPERATOR Body Mass Index 37.31 07/02/2019 3:10 PM DRESSING MACHINE OPERATOR documented in this encounter Discharge Summaries Desean Hale MD - 07/04/2019 4:47 PM CST Hospital Medicine Discharge Summary PATIENT NAME: Frank Polo : 1970 AGE: [age] year old PRIMARY CARE PHYSICIAN: Sadaf Owen ADMITTING PHYSICIAN: Desean Hale MD DISCHARGE PHYSICIAN: Desean Hale MD ADMISSION DATE: 07/02/2019 DISCHARGE DATE: 07/04/2019 DISCHARGE DIAGNOSES: Principal Problem: Alcohol withdrawal Active Problems: Type 2 MD (myocardial infarction) Elevated blood pressure reading Tachycardia Nonobstructive atherosclerosis of coronary artery Essential hypertension Atypical chest pain Rib fractures due to a fall at home Anxiety Alcohol abuse Alcohol withdrawal HPI Frank Polo is a 48 year old male with h/o bipolar d/o, alcohol abuse, and HTN, who presentedwith CP. Patient had a fall some 5d ago at home, and had an ER visit at [facility], was told he had left chest contusion. He has had severe pain in left chest with SOB. He felt anxious. He had been drinking 12pk beer daily in the past 1 week, with last drink yesterday. He has been shaking. Reported he had CP in 04/2019, and had a LHC done without stent placement at [place]. He was tachycardiac with elevated BP on arrival. Trop and EKG were unremarkable. CXR showed left sided multiple rib Fx. Pain control and ativan were given in ER. HOSPITAL COURSE: Patient presented with chest pain. Troponin and EKG were unremarkable. He was cleared by cardiology for discharge. He was found to have left sided multiple rib fractures due to a fall at home. Pain control were given. Follow with PCP. Patient has h/o anxiety and alcohol abuse. He was given Serax for alcohol withdrawal. Banana bag wasgiven. Patient declined serax on discharge, and requested ativan for alcohol withdrawal and anxiety. He was instructed to follow with psychiatry as outpatient. REVIEW OF SYSTEMS: General: (-) fever, (-) chills, (-) weight loss, (-) weight gain, (-) fatigue, ( -) malaise Skin: (-) rash, (-) lesion HEENT: (-) headache, (-) change in hearing, (-) change in vision, (-) nasal discharge, (-) sore throat Neck: (-) pain, (-) difficulty swallowing, (-) mass Heme: (-) bleeding disorder Resp: (-) cough, (+) shortness of breath, (-) dyspnea on exertion Cardio: (+) chest pain, (-) palpitations, (-) syncope GI: (-) abdominal pain, (-) nausea, (-) vomiting, (-) diarrhea, (-) constipation , (-) melena, (-) hematochezia, (-) hematemesis : (-) dysuria, (-) hematuria, (-) increased frequency, (-) difficulty urinating, (-) difficulty initiating Endo: (-) heat intolerance, (-) cold intolerance, (-) polyuria, (-) polydipsia Neuro: (-) numbness, (-) tingling, (-) weakness Back: (-) pain, (-)spasms FABIAN: (-) muscle pain, (-) joint pain, (-) claudication Psych: (+) anxiety, (-) depression, (-) psychiatric disorder DISCHARGE PHYSICAL EXAM: Most recent vital signs: Temp: 36.7 C (98 F) - BP: (!) 158/106 - Pulse: 98 - Resp: 20 - SpO2: 99 % General: alert and oriented x 4 (person, place, date/time and situation); no apparent distress; obese HEENT: pupils equal, round, reactive to light; extraocular movements intact; oropharynx clear; moistmucous membranes Neck: supple, no lymphadenopathy, no bruits, no JVD Lungs: clear to auscultation bilaterally Chest: tender to left frontal, lateral chest and left upper back Cardio: S1, S2 normal; tachycardia; no murmurs, rubs or gallops Abdomen: soft; non-tender; non-distended; normoactive bowel sounds Extremities: no clubbing, cyanosis, or edema Skin: no rashes Neuro: cranial nerves II through XII grossly intact; sensation grossly intact; muscle strength 5 outof 5 in all four extremities, no focal deficits, alert and oriented x 3 CONSULTS: Cardiology PROCEDURES: None LABS PENDING: None DIET: cardiac ACTIVITY: as tolerated MEDS: Current Discharge Medication List START taking these medications Details foLIC acid (FOLATE) 1 mg Take 1 mg by mouth daily. Qty: 30 tablet, Refills: 0 Start date: 07/05/2019, End date: 08/04/2019 Associated Diagnoses: Alcohol withdrawal syndrome without complication lisinopril (PRINIVIL,ZESTRIL) 20 mg Take 20 mg by mouth daily. Qty: 30 tablet, Refills: 2 Start date: 07/04/2019, End date: 08/03/2019 Associated Diagnoses: Essential hypertension LORazepam (ATIVAN) 1 mg Take 1 mg by mouth 3 (three) times daily as needed for Anxiety or Agitation. Qty: 21 tablet, Refills: 0 Start date: 07/04/2019 Associated Diagnoses: Alcohol withdrawal syndrome without complication thiamine (VITAMIN B1) 100 mg Take 100 mg by mouth daily. Qty: 30 tablet, Refills: 0 Start date: 07/05/2019, End date: 08/04/2019 Associated Diagnoses: Alcohol withdrawal syndrome without complication traMADol (ULTRAM) 50 mg Take 50 mg by mouth every 6 (six) hours as needed for Pain (scale 4-6). Qty: 21 tablet, Refills: 0 Start date: 07/04/2019 Associated Diagnoses: Chest pain, unspecified type; Closed fracture of multiple ribs of left side, initial encounter CONTINUE these medications which have NOT CHANGED Details aspirin 81 mg Take 81 mg by mouth daily. Qty: 90 tablet, Refills: 3 Associated Diagnoses: Type 2 MD (myocardial infarction) atorvastatin (LIPITOR) 40 mg Take 40 mg by mouth at bedtime. Qty: 30 tablet, Refills: 2 Associated Diagnoses: Type 2 MD (myocardial infarction) metoprolol tartrate (LOPRESSOR) 50 mg Take 50 mg by mouth 2 (two) times daily. Qty: 60 tablet, Refills: 3 Associated Diagnoses: Type 2 MD (myocardial infarction); Secondary hypertension nitroglycerin (NITROSTAT) 0.[address] 0.3 mg under the tongue every 5 (five) minutes as needed forChest pain. Qty: 1 Bottle, Refills: 0 Associated Diagnoses: Type 2 MD (myocardial infarction) gabapentin (NEURONTIN) 600 mg Take 600 mg by mouth 3 (three) times daily. mirtazapine (REMERON) 30 mg Take 30 mg by mouth at bedtime. STOP taking these medications oxazepam (SERAX) 15 mg Comments: Reason for Stopping: QUEtiapine (SEROQUEL) 300 mg Comments: Reason for Stopping: SIGNIFICANT LAB/X-RAYS: Lab results: CBC BMP PT/INR WBC x10^3 (/uL) Date Value 03/24/2013 6.7 WBC (10*3/L) Date Value 07/03/2019 9.45 NA Date Value 07/04/2019 137 mmol/L 03/24/2013 148 MMOL/L (H) No results found for: PT RBC x10^6 (/uL) Date Value 03/24/2013 5.04 RBC (10*6/L) Date Value 07/03/2019 4.92 K Date Value 07/04/2019 4.1 mmol/L 03/24/2013 4.1 MMOL/L PT INR (no units) Date Value 07/02/2012 1.1 INR (no units) Date Value 07/02/2019 1.1 PLT x10^3 (/uL) Date Value 03/24/2013 235 PLT (10*3/L) Date Value 07/03/2019 142 (L) CALCIUM Date Value 07/04/2019 8.8 mg/dL 03/24/2013 8.7 MG/DL HGB Date Value 07/03/2019 12.9 g/dL 03/24/2013 14.0 G/DL CL Date Value 07/04/2019 102 mmol/L 03/24/2013 101 MMOL/L aPTT HCT (%) Date Value 07/03/2019 39.6 03/24/2013 42.1 BUN Date Value 07/04/2019 12 mg/dL 03/24/2013 11 MG/DL APTT (SEC) Date Value 07/02/2012 22 (L) APTT Patient (Seconds) Date Value 07/02/2019 27 CREATININE Date Value 07/04/2019 0.70 mg/dL 03/24/2013 0.84 MG/DL GLUCOSE Date Value 07/04/2019 103 mg/dL 03/24/2013 95 MG/DL CO2 TOTAL Date Value 07/04/2019 27 mmol/L 03/24/2013 33 MMOL/L (H) Imaging results: Chest 1 View Result Date: 07/02/2019 Left 8th through 10th rib fractures. Preliminary Report Dictated by Resident: Kole Dobson I, Wolf Kearney MD., have reviewed this study and agree with the above report. Xr Ribs 3 Vw Left Result Date: 07/03/2019 Left seventh through tenth rib fractures. Questionable left lateral sixth rib fracture. Preliminary Report Dictated by Resident: Kole Dobson I, Shelley Rand MD., have reviewed this study and agree with the above report. DISPOSITION: home CONDITION: Good FOLLOW-UP: PCP Cardiology I spent 55 minutes including a [id number] visit, discussing the plan of care with the patient, patient education regarding medication compliance, exam, and coordination of discharge Electronically Signed by: Desean Hale MD 07/04/2019 4:47 PM documented in this encounter Discharge Instructions AttachmentsThe following attachments cannot be sent through Care Everywhere.Fracture, Rib (Broken Rib) (Salvadorean)Vitamin B-12 and Folate (Salvadorean) Lorazepam tablets (Salvadorean)Tramadol tablets (Salvadorean)Lisinopril tablets (Salvadorean )Thiamine, Vitamin B1 tablets (Salvadorean)documented in this encounter Progress Notes Melchor Sanches MD - 07/04/2019 5:35 PM CST [facility] Cardiology progress note Date of Service: 07/04/2019 Frank Polo is a 48 years old male hospitalized for alcohol withdrawal. C /o chest ache. HR iswell controlled. PHYSICAL EXAM Vitals: 07/04/19 0356 07/04/19 0917 07/04/19 1114 07/04/19 1500 BP: (!) 146/84 (!) 133/91 (!) 131/96 (!) 158/106 Pulse: 83 82 72 98 Resp: Temp: 36.7 C (98.1 F) 36.4 C (97.6 F) 36.3 C (97.4 F) 36.7 C (98 F) TempSrc: Oral Tympanic Tympanic Tympanic SpO2: 91% 91% 93% 99% Weight: Height: General: alert and oriented x 3 (person, place and date/time); no apparent distress HEENT: normocephalic atraumatic Neck: supple, no lymphadenopathy, no bruits, no JVD Lungs: clear to auscultation bilaterally Cardio: S1, S2, normal rate, regular; no murmurs, rubs or gallops Abdomen: non-distended : not examined Rectal: not examined Extremities: no clubbing, cyanosis, or edema Skin: no rashes Neuro: no focal deficits Medications: I have reviewed the patient's medications; see Medication Reconciliation. Labs: I have reviewed the patient's labs. ASSESSMENT AND PLAN Principal Problem: Alcohol withdrawal Active Problems: Elevated blood pressure reading Tachycardia Nonobstructive atherosclerosis of coronary artery Essential hypertension Atypical chest pain Atypical chest pain: Noncardiac. ECG shows no dynamic changes noted. Serial trop negative Recent cath showed non-obs CAD. Sinus tachycardia: secondary to alcohol withdrawal. Well controlled with metoprolol. HTN: On Metoprolol 50 mg BiD. Nonobs CAD: On ASA and liptor 40 mg daily. Dyslipidemia: Recommended to keep LDL < 70. Lifestyle modifications stressed. Currently on lipitor 40 mg daily. Melchor Sanches MD, FACC, FACP, ANUSHKA [employer], Division of Cardiology [facility] Desean Nye MD - 07/03/2019 4:19 PM CST [facility] Medicine Progress Note Name: Frank Polo : 1970 Admit Date: 07/02/2019 PCP on file: Sadaf Owen ASSESSMENT: Frank Polo is a 48 year old male with h/o bipolar d/o, alcohol abuse, and HTN, who presentedwith CP. PLAN: # rib fractures due to a fall at home # CP, likely due to above. Trop and EKG unremarkable - pain control - cardiology following - continue asa, statin, and BB # possible alcohol withdrawal # Anxiety # h/o bipolar d/o - serax per protocol - thiamine and folate - patient was counseled for alcohol abuse # HTN - continue home metoprolol Dispo: home VTE Prophylaxis: enoxaparin Code Status: FC Electronically signed by: Desean Hale MD SUBJECTIVE/ 24-HOUR HOSPITAL EVENTS: 07/03: still c/o severe left chest pain. OBJECTIVE: Vital signs range: Temp: [36.3 C (97.3 F)-37.1 C (98.8 F)] 36.3 C (97.3 F) Pulse: [83-111] 83 Resp: [17-20] 19 BP: (126-169)/(81-98) 127/90 Most recent vital signs: BP 127/90 | Pulse 83 | Temp 36.3 C (97.3 F) (Tympanic) | Resp 19 | Ht 1.778 m (5' 10") | Wt117.9 kg (260 lb) | SpO2 95% | BMI 37.31 kg/m I/O: No intake/output data recorded. PHYSICAL EXAM: General: alert and oriented x 4 (person, place, date/time and situation); no apparent distress; obese HEENT: pupils equal, round, reactive to light; extraocular movements intact; oropharynx clear; moistmucous membranes Neck: supple, no lymphadenopathy, no bruits, no JVD Lungs: clear to auscultation bilaterally Chest: tender to left frontal, lateral chest and left upper back Cardio: S1, S2 normal; tachycardia; no murmurs, rubs or gallops Abdomen: soft; non-tender; non-distended; normoactive bowel sounds Extremities: no clubbing, cyanosis, or edema Skin: no rashes Neuro: cranial nerves II through XII grossly intact; sensation grossly intact; muscle strength 5 outof 5 in all four extremities, no focal deficits, alert and oriented x 3 LABS: I reviewed all the relevant patient's new lab test results Recent Results (from the past 24 hour(s)) TROPONIN I Collection Time: 07/02/19 5:18 PM Result Value Ref Range TROPONIN I <0.012 <=0.034 ng/mL TROPONIN I Collection Time: 07/03/19 1:55 AM Result Value Ref Range TROPONIN I <0.012 <=0.034 ng/mL Basic Metabolic Panel (NA, K, CL, CO2, GLUCOSE, BUN, CREATININE, CA) Collection Time: 07/03/19 1:55 AM Result Value Ref Range NA 132 (L) 135 - 145 mmol/L K 3.3 (L) 3.5 - 5.0 mmol/L CL 94 (L) 98 - 108 mmol/L CO2 TOTAL 27 23 - 31 mmol/L AGAP 11 2 - 16 BUN 18 7 - 23 mg/dL GLUCOSE 116 (H) 70 - 110 mg/dL CREATININE 0.68 0.60 - 1.25 mg/dL CALCIUM 8.6 8.6 - 10.6 mg/dL eGFR Calculation (Non-) 125.5 mL/min/1.73m2 eGFR Calculation () 152.2 mL/min/1.73m2 Magnesium Serum Collection Time: 07/03/19 1:55 AM Result Value Ref Range MAGNESIUM 1.7 1.7 - 2.4 mg/dL CBC WITH DIFFERENTIAL Collection Time: 07/03/19 1:55 AM Result Value Ref Range WBC 9.45 4.20 - 10.70 10*3/L RBC 4.92 4.26 - 5.52 10*6/L HGB 12.9 12.2 - 16.4 g/dL HCT 39.6 38.4 - 49.3 % MCV 80.5 (L) 81.7 - 95.6 fL MCH 26.2 26.1 - 32.7 pg MCHC 32.6 31.2 - 35.0 g/dL RDW-SD 41.0 38.5 - 51.6 fL RDW-CV 14.0 12.1 - 15.4 % PLT 142 (L) 150 - 328 10*3/L MPV 9.8 9.8 - 13.0 fL NRBC/100 WBC 0.0 0.0 - 10.0 /100 WBCs NRBC x10^3 <0.01 10*3/L GRAN MAT (NEUT) % 76.1 % IMM GRAN % 0.30 % LYMPH % 15.8 % MONO % 7.0 % EOS % 0.3 % BASO % 0.5 % GRAN MAT x10^3(ANC) 7.19 (H) 1.99 - 6.95 10*3/uL IMM GRAN x10^3 0.03 0.00 - 0.06 10*3/uL LYMPH x10^3 1.49 1.09 - 3.23 10*3/uL MONO x10^3 0.66 0.36 - 1.02 10*3/uL EOS x10^3 0.03 (L) 0.06 - 0.53 10*3/uL BASO x10^3 0.05 0.01 - 0.09 10*3/uL IMAGING: I reviewed all the relevant patient's new radiology test results Hospital Encounter on 07/02/19 XR RIBS 3 VW LEFT Narrative EXAM: XR RIBS 3 VW LEFT HISTORY: 48 years-old Male presenting with left sided rib pain COMPARISON: Chest radiographs 07/02/2019 FINDINGS: Dedicated radiographic rib series demonstrates minimally displaced and nondisplaced fractures of the left lateral seventh through tenth ribs. A cortical irregularity of the lateral sixth rib may also represent an additional nondisplaced fracture. Left lower lobe airspace opacification may represent atelectasis or contusion. Impression Left seventh through tenth rib fractures. Questionable left lateral sixth rib fracture. Preliminary Report Dictated by Resident: Kole Dobson I, Shelley Rand MD., have reviewed this study and agree with the above report. Chest 1 View Narrative EXAM: XR CHEST 1 VW HISTORY: 48 years-old Male presenting with chest pain COMPARISON: None TECHNIQUE: PA images of the thorax were obtained. FINDINGS: Bibasilar and perihilar streaky opacities likely reflect changes of atelectasis. No focal consolidation, pleural effusion or pneumothorax. The cardiomediastinal silhouette is normal. Minimally displaced left lateral 8th through 10th rib fractures.. Impression Left 8th through 10th rib fractures. Preliminary Report Dictated by Resident: Kole Dobson I, Wolf Kearney MD., have reviewed this study and agree with the above report. MEDICATIONS: I reviewed the current inpatient medications ordered Current Facility-Administered Medications Medication Dose Route Frequency Last Rate Last Dose acetaminophen (TYLENOL) tablet 650 mg 650 mg Oral Q6HPRN aspirin chewable tablet 81 mg 81 mg Oral DAILY 81 mg at 07/03/19 0940 atorvastatin (LIPITOR) tablet 40 mg 40 mg Oral QHS 40 mg at 07/02/192008 enoxaparin (LOVENOX) injection 40 mg 40 mg Subcutaneous DAILY 40 mg at 0940 foLIC acid (FOLATE) tablet 1 mg 1 mg Oral DAILY 1 mg at 07/03/19 0940 gabapentin (NEURONTIN) capsule 600 mg 600 mg Oral TID 600 mg at 07/03/19 1502 HYDROcodone-acetaminophen (NORCO 5) 5-325 mg tablet 1 tablet 1 tablet Oral Q6HPRN 1 tablet at07/03/19 1502 HYDROmorphone (DILAUDID) injection 1 mg 1 mg Slow IV Push Q4HPRN 1 mg at 07/03/19 1207 LORazepam (ATIVAN) injection 1 mg 1 mg Slow IV Push Q4HPRN 1 mg at 0944 metoprolol tartrate (LOPRESSOR) tablet 50 mg 50 mg Oral BID 50 mg at 0940 mirtazapine (REMERON) tablet 30 mg 30 mg Oral QHS 30 mg at 07/02/192009 ondansetron (ZOFRAN (PF)) injection 4 mg 4 mg Slow IV Push Q6HPRN oxazepam (SERAX) capsule 15 mg 15 mg Oral Q8H Followed by [START ON 07/04/2019] oxazepam (SERAX) capsule 15 mg 15 mg Oral Q12H thiamine (VITAMIN B1) 100 mg, foLIC acid (FOLATE) 1 mg, multivitamin adult ( INFUVITE ADULT) 3,300 unit- 150 mcg/10 mL 10 mL in NaCl 0.45% (1/2NS) IV Solution IV Infusion DAILY 125 mL/hr at 07/03/19 0939 thiamine (VITAMIN B1) tablet 100 mg 100 mg Oral DAILY 100 mg at 07/03/19 0940 documented in this encounter Plan of Treatment Date Type Specialty Care Team Description 07/12/2019 Office Visit Family Medicine Sadaf Owen MD [address] [place] [address] [place] [address] [phone] Name Type Priority Associated Diagnoses Order Schedule EKG-12 LEAD ROUTINE HEART STATION Routine ONCE for 1 Occurrences starting 07/02/2019 until 07/02/2019 Health Maintenance Due Date Last Done Comments DTaP,Tdap,and Td Vaccines (1 - 1983 Tdap) INFLUENZA VACCINE (#1) 2020 Postponed from 01/16/2019 (Refused) PNEUMOCOCCAL 0-64 YEARS COMBINED 06/01/2020 Postponed from 1978 SERIES (1 of 1 - PPSV23) (Refused) documented as of this encounter Procedures Procedure Name Priority Date/Time Associated Diagnosis Comments BASIC METABOLIC PANEL Routine 07/04/2019 12:37 Results for this (NA, K, CL, CO2, PM DRESSING MACHINE OPERATOR procedure are in GLUCOSE, BUN, the results CREATININE, CA) section. MAGNESIUM Routine 07/04/2019 12:37 Results for this PM DRESSING MACHINE OPERATOR procedure are in the results section. CBC WITH DIFFERENTIAL Routine 07/03/2019 1:55 Results for this AM DRESSING MACHINE OPERATOR procedure are in the results section. CBC WITH DIFFERENTIAL Routine 07/03/2019 1:55 Results for this AM DRESSING MACHINE OPERATOR procedure are in the results section. BASIC METABOLIC PANEL Routine 07/03/2019 1:55 Results for this (NA, K, CL, CO2, AM DRESSING MACHINE OPERATOR procedure are in GLUCOSE, BUN, the results CREATININE, CA) section. TROPONIN I Routine 07/03/2019 1:55 Results for this AM DRESSING MACHINE OPERATOR procedure are in the results section. MAGNESIUM Routine 07/03/2019 1:55 Results for this AM DRESSING MACHINE OPERATOR procedure are in the results section. TROPONIN I Routine 07/02/2019 5:18 Results for this PM DRESSING MACHINE OPERATOR procedure are in the results section. ADC / LCC - DRUG STAT 07/02/2019 1:50 Chest pain, Results for this SCREEN TRIAGE PM DRESSING MACHINE OPERATOR unspecified type procedure are in the results section. XR RIBS 3 VW LEFT STAT 07/02/2019 12:57 Chest pain, Results for this PM DRESSING MACHINE OPERATOR unspecified type procedure are in the results section. XR CHEST 1 VW STAT 07/02/2019 12:46 Chest pain, Results for this PM DRESSING MACHINE OPERATOR unspecified type procedure are in the results section. CBC WITH DIFFERENTIAL STAT 07/02/2019 12:14 Chest pain, Results for this PM DRESSING MACHINE OPERATOR unspecified type procedure are in the results section. N-TERMINAL PRO-BNP STAT 07/02/2019 12:14 Chest pain, Results for this PM DRESSING MACHINE OPERATOR unspecified type procedure are in the results section. ACTIVATED PARTIAL STAT 07/02/2019 12:14 Chest pain, Results for this THRMPLAS GIL PM DRESSING MACHINE OPERATOR unspecified type procedure are in the results section. PROTHROMBIN TIME / STAT 07/02/2019 12:14 Chest pain, Results for this INR PM DRESSING MACHINE OPERATOR unspecified type procedure are in the results section. CBC WITH DIFFERENTIAL Routine 07/02/2019 12:14 Chest pain, Results for this PM DRESSING MACHINE OPERATOR unspecified type procedure are in the results section. ETHANOL STAT 07/02/2019 12:14 Chest pain, Results for this PM DRESSING MACHINE OPERATOR unspecified type procedure are in the results section. BASIC METABOLIC PANEL STAT 07/02/2019 12:14 Chest pain, Results for this (NA, K, CL, CO2, PM DRESSING MACHINE OPERATOR unspecified type procedure are in GLUCOSE, BUN, the results CREATININE, CA) section. HEPATIC FUNCTION STAT 07/02/2019 12:14 Chest pain, Results for this PANEL (90094) PM DRESSING MACHINE OPERATOR unspecified type procedure are in (ALB,T.PRO,BILI the results T,BU/BC,ALT,AST,ALK section. PHOS) TROPONIN I STAT 07/02/2019 12:14 Chest pain, Results for this PM DRESSING MACHINE OPERATOR unspecified type procedure are in the results section. MAGNESIUM STAT 07/02/2019 12:14 Chest pain, Results for this PM DRESSING MACHINE OPERATOR unspecified type procedure are in the results section. LIPASE STAT 07/02/2019 12:14 Chest pain, Results for this PM DRESSING MACHINE OPERATOR unspecified type procedure are in the results section. EKG-12 LEAD Routine 07/02/2019 11:45 AM DRESSING MACHINE OPERATOR documented in this encounter Results BASIC METABOLIC PANEL (NA, K, CL, CO2, GLUCOSE, BUN, CREATININE, CA) (2019 12:37 PM DRESSING MACHINE OPERATOR) NA 137 135 - 145 mmol/L [facility] K 4.1 3.5 - 5.0 mmol/L [facility] CL 102 98 - 108 mmol/L [facility] CO2 TOTAL 27 23 - 31 mmol/L [facility] AGAP 8 2 - 16 [facility] BUN 12 7 - 23 mg/dL [facility] GLUCOSE 103 70 - 110 mg/dL [facility] CREATININE 0.70 0.60 - 1.25 [facility] mg/dL [facility] CALCIUM 8.8 8.6 - 10.6 mg/dL [facility] eGFR Calculation 121.4 mL/min/1.73m2 [facility] (Non-) [facility] eGFR Calculation 147.1 mL/min/1.73m2 [facility] () [facility] Specimen Blood - HAND, RIGHT Narrative Performed At Association of Glomerular Filtration Rate (GFR) [facility] and Staging of Kidney Disease* + + +- + | GFR (mL/min/1.73 m2) | With Kidney Damage | Without Kidney Damage + + +- + | >90 | Stage one | Normal + + +- + | 60-89 | Stage two | Decreased GFR + + +- + | 30-59 | Stage three | Stage three + + +- + | 15-29 | Stage four | Stage four + + +- + | <15 (or dialysis) | Stage five | Stage five + + +- + *Each stage assumes the associated GFR level has been in effect for at least three months. Stages 1 to 5, with or without kidney disease, indicate chronic kidney disease. Notes: Determination of stages one and two (with eGFR >59mL/min/1.73 m2) requires estimation of kidney damage for at least three months as defined by structural or functional abnormalities of the kidney, manifested by either: Pathological abnormalities or Markers of kidney damage (including abnormalities in the composition of the blood or urine or abnormalities in imaging tests). Performing Organization Address [facility] Phone Number [facility] CLIA: [id number], [address] [place] [address] MAGNESIUM (07/04/2019 12:37 PM DRESSING MACHINE OPERATOR) [facility] Signature MAGNESIUM 2.3 1.7 - 2.4 mg/dL [facility] Specimen Blood - HAND, RIGHT Performing Organization Address [facility] Phone Number [facility] CLIA: [id number], [address] [place] [address] CBC WITH DIFFERENTIAL (07/03/2019 1:55 AM DRESSING MACHINE OPERATOR) WBC 9.45 4.20 - 10.70 [facility] 10*3/L [facility] RBC 4.92 4.26 - 5.52 [facility] 10*6/L [facility] HGB 12.9 12.2 - 16.4 [facility] g/dL [facility] HCT 39.6 38.4 - 49.3 % [facility] MCV 80.5 (L) 81.7 - 95.6 fL [facility] MCH 26.2 26.1 - 32.7 pg [facility] MCHC 32.6 31.2 - 35.0 [facility] g/dL [facility] RDW-SD 41.0 38.5 - 51.6 fL [facility] RDW-CV 14.0 12.1 - 15.4 % [facility] PLT 142 (L) 150 - 328 [facility] 10*3/L [facility] MPV 9.8 9.8 - 13.0 fL [facility] NRBC/100 WBC 0.0 0.0 - 10.0 /100 [facility] WBCs [facility] NRBC x10^3 <0.01 10*3/L [facility] GRAN MAT (NEUT) % 76.1 % [facility] IMM GRAN % 0.30 % [facility] LYMPH % 15.8 % [facility] MONO % 7.0 % [facility] EOS % 0.3 % [facility] BASO % 0.5 % [facility] GRAN MAT x10^3(ANC) 7.19 (H) 1.99 - 6.95 [facility] 10*3/uL [facility] IMM GRAN x10^3 0.03 0.00 - 0.06 [facility] 10*3/uL [facility]ITAL [facility] LYMPH x10^3 1.49 1.09 - 3.23 [facility] 10*3/uL [facility] MONO x10^3 0.66 0.36 - 1.02 [facility] 10*3/uL [facility]ITAL [facility] EOS x10^3 0.03 (L) 0.06 - 0.53 [facility] 10*3/uL [facility] BASO x10^3 0.05 0.01 - 0.09 [facility] 10*3/uL [facility] Specimen Blood - ARM, RIGHT Performing Organization Address [facility] Phone Number [facility] CLIA: [id number], [address] [place] [address] TROPONIN I (07/03/2019 1:55 AM DRESSING MACHINE OPERATOR) TROPONIN I <0.012 <=0.034 ng/mL [facility] Specimen Blood - ARM, RIGHT Narrative Performed At Equal or Less than 0.034 ng/ml---Normal [facility] Note: Cardiac troponin begins to rise 3-4 hours after the onset of ischemia. Repeat in 4-6 hours if the sample was drawn within 3-4 hours of the onset of the symptom and found normal. Between 0.035 and 0.120 ng/mL--- Borderline. Questionable myocardial injury or necrosis Note: Serial measurement may be necessary to confirm or exclude the diagnosis of myocardial injury or necrosis; Clinical correlation (symptoms, EKGs, imaging studies, and others) required; Repeat in 4-6 hours if clinically indicated. Equal or Higher than 0.121 ng/mL---Abnormal. Myocardial Injury or Necrosis Likely Biotin has been reported to cause a negative bias, interpret results relative to patient's use of biotin. Performing Organization Address [facility] Phone Number [facility] CLIA: [id number], [address] [place], [place] [address] LABORAT[address] Magnesium Serum (07/03/2019 1:55 AM DRESSING MACHINE OPERATOR) MAGNESIUM 1.7 1.7 - 2.4 mg/dL [facility] Specimen Blood - ARM, RIGHT Performing Organization Address [facility] Phone Number [facility] CLIA: [id number], [address] [place] [address] Basic Metabolic Panel (NA, K, CL, CO2, GLUCOSE, BUN, CREATININE, CA) (2019 1:55 AM DRESSING MACHINE OPERATOR) NA 132 (L) 135 - 145 [facility] mmol/L [facility] K 3.3 (L) 3.5 - 5.0 [facility] mmol/L [facility] CL 94 (L) 98 - 108 mmol/L [facility] CO2 TOTAL 27 23 - 31 mmol/L [facility] AGAP 11 2 - 16 [facility] BUN 18 7 - 23 mg/dL [facility] GLUCOSE 116 (H) 70 - 110 mg/dL [facility] CREATININE 0.68 0.60 - 1.25 [facility] mg/dL [facility] CALCIUM 8.6 8.6 - 10.6 [facility] mg/dL [facility] eGFR Calculation 125.5 mL/min/1.73m2 [facility] (Non-[facility] LAB[facility]ATORY [place]cu[place]orean) eGFR Calculation 152.2 mL/min/1.73m2 [facility] () [facility] Specimen Blood - ARM, RIGHT Narrative Performed At Association of Glomerular Filtration Rate (GFR) [facility] and Staging of Kidney Disease* + + +- + | GFR (mL/min/1.73 m2) | With Kidney Damage | Without Kidney Damage + + +- + | >90 | Stage one | Normal + + +- + | 60-89 | Stage two | Decreased GFR + + +- + | 30-59 | Stage three | Stage three + + +- + | 15-29 | Stage four | Stage four + + +- + | <15 (or dialysis) | Stage five | Stage five + + +- + *Each stage assumes the associated GFR level has been in effect for at least three months. Stages 1 to 5, with or without kidney disease, indicate chronic kidney disease. Notes: Determination of stages one and two (with eGFR >59mL/min/1.73 m2) requires estimation of kidney damage for at least three months as defined by structural or functional abnormalities of the kidney, manifested by either: Pathological abnormalities or Markers of kidney damage (including abnormalities in the composition of the blood or urine or abnormalities in imaging tests). Performing Organization Address City/State/Zipcode Phone Number [facility] CLIA: [id number], [address] [place] [address] TROPONIN I (07/02/2019 5:18 PM DRESSING MACHINE OPERATOR) TROPONIN I <0.012 <=0.034 ng/mL [facility] Specimen Blood - ARM, RIGHT Narrative Performed At Equal or Less than 0.034 ng/ml---Normal [facility] Note: Cardiac troponin begins to rise 3-4 hours after the onset of ischemia. Repeat in 4-6 hours if the sample was drawn within 3-4 hours of the onset of the symptom and found normal. Between 0.035 and 0.120 ng/mL--- Borderline. Questionable myocardial injury or necrosis Note: Serial measurement may be necessary to confirm or exclude the diagnosis of myocardial injury or necrosis; Clinical correlation (symptoms, EKGs, imaging studies, and others) required; Repeat in 4-6 hours if clinically indicated. Equal or Higher than 0.121 ng/mL---Abnormal. Myocardial Injury or Necrosis Likely Biotin has been reported to cause a negative bias, interpret results relative to patient's use of biotin. Performing Organization Address City/State/Zipcode Phone Number [facility] CLIA: [id number], [address] [place] [address] ADC / C - DRUG SCREEN TRIAGE (07/02/2019 1:50 PM DRESSING MACHINE OPERATOR) BENZO U Presumptive Negative [facility] Positive (A) HOSPITAL [facility] OLEGARIO U Negative Negative [facility] AMPHET Negative Negative [facility] THC Negative Negative [facility] METHADONE Negative Negative [facility] Meth U Negative Negative [facility] OPIATES Negative Negative [facility] Cocaine Metabolite Negative Negative [facility] PROPOXY Negative Negative [facility] Tric U Negative Negative [facility] PCP Negative Negative [facility] OXYCOD Negative Negative [facility] Specimen Urine - URINE, CLEAN CATCH Narrative Performed At Urine Drug Cutoff Ranges [facility] Benzodiazepines: 150 ng/mL Barbiturates: 200 ng/mL Amphetamine: 500 ng/mL Cannabinoids: 50 ng/mL Methadone: 200 ng/mL Methamphetamine: 500 ng/mL Opiates: 100 ng/mL or 2000 ng/mL Cocaine: 150 ng/mL Propoxyphene: 300 ng/mL Tricyclics: 300 ng/mL Oxycodone: 100 ng/mL PCP: 25 ng/mL The results are to be used only for medical (i.e., treatment) purposes. Unconfirmed screening results must not be used for non-medical purposes (e.g., employment testing, legal testing). Performing Organization Address City/State/Zipcode Phone Number [facility] CLIA: [id number], [address] [place] [address] [facility] [address] XR RIBS 3 VW LEFT (07/02/2019 12:57 PM DRESSING MACHINE OPERATOR) Specimen Impressions Performed At PACS/VR/DOSE Left seventh through tenth rib fractures. Questionable left lateral sixth rib fracture. Preliminary Report Dictated by Resident: Shelley Pollack MD., have reviewed this study and agree with the above report. Narrative Performed At EXAM: XR RIBS 3 VW LEFT PACS/VR/DOSE HISTORY: 48 years-old Male presenting with left sided rib pain COMPARISON: Chest radiographs 07/02/2019 FINDINGS: Dedicated radiographic rib series demonstrates minimally displaced and nondisplaced fractures of the left lateral seventh through tenth ribs. A cortical irregularity of the lateral sixth rib may also represent an additional nondisplaced fracture. Left lower lobe airspace opacification may represent atelectasis or contusion. Procedure Note [facility], Radiant Results Inft User - 07/03/2019 8:22 AM DRESSING MACHINE OPERATOR EXAM: XR RIBS 3 VW LEFT HISTORY: 48 years-old Male presenting with left sided rib pain COMPARISON: Chest radiographs 07/02/2019 FINDINGS: Dedicated radiographic rib series demonstrates minimally displaced and nondisplaced fractures of the left lateral seventh through tenth ribs. A cortical irregularity of the lateral sixth rib may also represent an additional nondisplaced fracture. Left lower lobe airspace opacification may represent atelectasis or contusion. IMPRESSION Left seventh through tenth rib fractures. Questionable left lateral sixth rib fracture. Preliminary Report Dictated by Resident: Shelley Pollack MD., have reviewed this study and agree with the above report. Performing Organization Address City/State/Zipcode Phone Number PACS/VR/DOSE Chest 1 View (07/02/2019 12:46 PM DRESSING MACHINE OPERATOR) Specimen Impressions Performed At PACS/VR/DOSE Left 8th through 10th rib fractures. Preliminary Report Dictated by Resident: Kole Dobson I, Wolf Kearney MD., have reviewed this study and agree with the above report. Narrative Performed At EXAM: XR CHEST 1 VW PACS/VR/DOSE HISTORY: 48 years-old Male presenting with chest pain COMPARISON: None TECHNIQUE: PA images of the thorax were obtained. FINDINGS: Bibasilar and perihilar streaky opacities likely reflect changes of atelectasis. No focal consolidation, pleural effusion or pneumothorax. The cardiomediastinal silhouette is normal. Minimally displaced left lateral 8th through 10th rib fractures.. Procedure Note [facility], Radiant Results Inft User - 07/02/2019 1:19 PM DRESSING MACHINE OPERATOR EXAM: XR CHEST 1 VW HISTORY: 48 years-old Male presenting with chest pain COMPARISON: None TECHNIQUE: PA images of the thorax were obtained. FINDINGS: Bibasilar and perihilar streaky opacities likely reflect changes of atelectasis. No focal consolidation, pleural effusion or pneumothorax. The cardiomediastinal silhouette is normal. Minimally displaced left lateral 8th through 10th rib fractures.. IMPRESSION Left 8th through 10th rib fractures. Preliminary Report Dictated by Resident: Kole Dobson I, Wolf Kearney MD., have reviewed this study and agree with the above report. Performing Organization Address City/State/Zipcode Phone Number PACS/VR/DOSE CBC WITH DIFFERENTIAL (07/02/2019 12:14 PM DRESSING MACHINE OPERATOR) WBC 7.58 4.20 - 10.70 [facility] 10*3/L [facility] RBC 5.67 (H) 4.26 - 5.52 [facility] 10*6/L HOSPITAL [facility] HGB 14.9 12.2 - 16.4 [facility] g/dL [facility] HCT 45.6 38.4 - 49.3 % [facility] MCV 80.4 (L) 81.7 - 95.6 fL [facility] MCH 26.3 26.1 - 32.7 pg [facility] MCHC 32.7 31.2 - 35.0 [facility] g/dL [facility] RDW-SD 40.3 38.5 - 51.6 fL [facility] RDW-CV 14.0 12.1 - 15.4 % [facility] PLT 187 150 - 328 [facility] 10*3/L HOSPITAL [facility] MPV 9.7 (L) 9.8 - 13.0 fL [facility] NRBC/100 WBC 0.0 0.0 - 10.0 /100 [facility] WBCs [facility] NRBC x10^3 <0.01 10*3/L [facility] GRAN MAT (NEUT) % 61.6 % [facility] IMM GRAN % 0.30 % [facility] LYMPH % 30.7 % [facility] MONO % 5.4 % [facility] EOS % 1.3 % [facility] BASO % 0.7 % [facility] GRAN MAT x10^3(ANC) 4.67 1.99 - 6.95 [facility] 10*3/uL [facility]ITAL [facility] IMM GRAN x10^3 <0.03 0.00 - 0.06 [facility] 10*3/uL [facility] LYMPH x10^3 2.33 1.09 - 3.23 [facility] 10*3/uL [facility]ITAL [facility] MONO x10^3 0.41 0.36 - 1.02 [facility] 10*3/uL [facility]ITAL [facility] EOS x10^3 0.10 0.06 - 0.53 [facility] 10*3/uL [facility] BASO x10^3 0.05 0.01 - 0.09 [facility] 10*3/uL [facility]ITAL [facility] Specimen Blood - VENOUS Performing Organization Address City/[facility]/Zipcode Phone Number [facility] CLIA: [id number], [address] [place] [address] N-TERMINAL PRO-BNP (07/02/2019 12:14 PM DRESSING MACHINE OPERATOR) Pathologist [facility] NT-proBNP 12 <=125 pg/mL [facility] Specimen Blood - VENOUS Narrative Performed At Biotin has been reported to cause a negative [facility] bias, interpret results relative to patient's use of biotin. Performing Organization Address City/[facility]/Zipcode Phone Number [facility] CLIA: [id number], [address] [place] [address] Prothrombin Time (PT) / INR (07/02/2019 12:14 PM DRESSING MACHINE OPERATOR) PROTIME PATIENT 13.3 12.0 - 14.7 [facility] LABORATORY INR 1.1Comment: Normal [facility] INR <1.1; Warfarin [facility] Therapeutic range LABORATORY 2.0 to 3.0 or 2.5 to 3.5, depending upon the indications. Specimen Blood - VENOUS Performing Organization Address [facility] Phone Number [facility] CLIA: [id number], [address] [place] [address] aPTT (07/02/2019 12:14 PM DRESSING MACHINE OPERATOR) Pathologist [facility] APTT Patient 27 23 - 38 Seconds [facility] Specimen Blood - VENOUS Narrative Performed At The [facility] patient population mean normal value [facility] for aPTT is 30 seconds. Performing Organization Address [facility] Phone Number [facility] CLIA: [id number], [address] [place] [address] Troponin I (07/02/2019 12:14 PM DRESSING MACHINE OPERATOR) [facility] TROPONIN I <0.012 <=0.034 ng/mL [facility] Specimen Blood - VENOUS Narrative Performed At Equal or Less than 0.034 ng/ml---Normal [facility] Note: Cardiac troponin begins to rise 3-4 hours after the onset of ischemia. Repeat in 4-6 hours if the sample was drawn within 3-4 hours of the onset of the symptom and found normal. Between 0.035 and 0.120 ng/mL--- Borderline. Questionable myocardial injury or necrosis Note: Serial measurement may be necessary to confirm or exclude the diagnosis of myocardial injury or necrosis; Clinical correlation (symptoms, EKGs, imaging studies, and others) required; Repeat in 4-6 hours if clinically indicated. Equal or Higher than 0.121 ng/mL---Abnormal. Myocardial Injury or Necrosis Likely Biotin has been reported to cause a negative bias, interpret results relative to patient's use of biotin. Performing Organization Address [facility] Phone Number [facility] CLIA: [id number], [address] [place] [address] Lipase Serum (07/02/2019 12:14 PM DRESSING MACHINE OPERATOR) [facility] LIPASE 274 (H) 0 - 220 U/L [facility] Specimen Blood - VENOUS Performing Organization Address [facility] Phone Number [facility] CLIA: [id number], [address] [place] [address] Hepatic Function Panel (ALB, T.PRO, BILI T, BU/BC, ALT, AST, ALK PHOS) (2019 12:14 PM DRESSING MACHINE OPERATOR) TOTAL BILI 0.9 0.1 - 1.1 mg/dL [facility] BILI UNCON 0.5 0.1 - 1.1 mg/dL [facility] BILI CONJ 0.0 0.0 - 0.3 mg/dL [facility] T PROTEIN 8.3 (H) 6.3 - 8.2 g/dL [facility] ALBUMIN 4.9 3.5 - 5.0 g/dL [facility] ALK PHOS 93 34 - 122 U/L [facility] ALTv 32 5 - 50 U/L [facility] AST(SGOT) 57 (H) 13 - 40 U/L [facility] Specimen Blood - VENOUS Performing Organization Address City/State/Zipcode Phone Number [facility] CLIA: [id number], [address] [place] [address] Basic Metabolic Panel (NA, K, CL, CO2, GLUCOSE, BUN, CREATININE, CA) (2019 12:14 PM DRESSING MACHINE OPERATOR) NA 143 135 - 145 [facility] mmol/L [facility] K 4.5 3.5 - 5.0 [facility] mmol/L [facility] CL 100 98 - 108 mmol/L [facility] CO2 TOTAL 25 23 - 31 mmol/L [facility] AGAP 18 (H) 2 - 16 [facility] BUN 16 7 - 23 mg/dL [facility] GLUCOSE 121 (H) 70 - 110 mg/dL [facility] CREATININE 0.69 0.60 - 1.25 [facility] mg/dL [facility] CALCIUM 8.6 8.6 - 10.6 [facility] mg/dL [facility] eGFR Calculation 123.4 mL/min/1.73m2 [facility] (Non- [facility] [place]) eGFR Calculation 149.6 mL/min/1.73m2 [facility] () [facility] Specimen Blood - VENOUS Narrative Performed At Association of Glomerular Filtration Rate (GFR) [facility] and Staging of Kidney Disease* + + +- + | GFR (mL/min/1.73 m2) | With Kidney Damage | Without Kidney Damage + + +- + | >90 | Stage one | Normal + + +- + | 60-89 | Stage two | Decreased GFR + + +- + | 30-59 | Stage three | Stage three + + +- + | 15-29 | Stage four | Stage four + + +- + | <15 (or dialysis) | Stage five | Stage five + + +- + *Each stage assumes the associated GFR level has been in effect for at least three months. Stages 1 to 5, with or without kidney disease, indicate chronic kidney disease. Notes: Determination of stages one and two (with eGFR >59mL/min/1.73 m2) requires estimation of kidney damage for at least three months as defined by structural or functional abnormalities of the kidney, manifested by either: Pathological abnormalities or Markers of kidney damage (including abnormalities in the composition of the blood or urine or abnormalities in imaging tests). Performing Organization Address [facility] Phone Number [facility] CLIA: [id number], [address] [place], [place] [address] [address] MAGNESIUM (07/02/2019 12:14 PM DRESSING MACHINE OPERATOR) MAGNESIUM 2.2 1.7 - 2.4 mg/dL [facility] Specimen Blood - VENOUS Performing Organization Address [facility] Services[facility] Phone Number [facility] CLIA: [id number], [address] [place], [place] [address] LAB[address]AT[address] ETHANOL (07/02/2019 12:14 PM DRESSING MACHINE OPERATOR) ALCOHOL 277 mg/dL [facility] Specimen Blood - VENOUS Narrative Performed At <10 Negative [facility] 50-100 Toxic >100 Depression of HARVEST SUPERVISOR >400 Fatalities Reported Performing Organization Address [facility] Phone Number [facility] CLIA: [id number], [address] [place] [address] documented in this encounter Visit Diagnoses Diagnosis Chest pain, unspecified type Closed fracture of multiple ribs of left side, initial encounter Alcohol abuse Alcohol abuse, unspecified Alcohol withdrawal syndrome without complication Essential hypertension Unspecified essential hypertension Elevated blood pressure reading Elevated blood pressure reading without diagnosis of hypertension Tachycardia Tachycardia, unspecified Nonobstructive atherosclerosis of coronary artery Atypical chest pain Other chest pain documented in this encounter Administered Medications Medication Order MAR Action Action Date Dose Rate Site acetaminophen (TYLENOL) tablet 650 mg 650 mg, Oral, Q6HPRN, Starting 07/02/19 at 1511, Until Discontinued, Routine , Pain (scale 1-3) aspirin chewable tablet 81 mg Given 07/04/2019 8:26 AM DRESSING MACHINE OPERATOR 81 mg 81 mg, Oral, DAILY, First dose on 07/03/19 at 0900, Until Discontinued, Routine Given 07/03/2019 9:40 AM DRESSING MACHINE OPERATOR 81 mg atorvastatin (LIPITOR) tablet 40 mg Given 07/03/2019 9:23 PM DRESSING MACHINE OPERATOR 40 mg 40 mg, Oral, QHS, First dose on 07/02/19 at 2100, Until Discontinued, Routine Given 07/02/2019 8:09 PM DRESSING MACHINE OPERATOR 40 mg enoxaparin (LOVENOX) injection 40 mg Given 07/03/2019 9:40 AM DRESSING MACHINE OPERATOR 40 mg Abdomen-SC 40 mg, Subcutaneous, DAILY, First dose on 07/03/19 at 0900, Until Discontinued, Routine foLIC acid (FOLATE) tablet 1 mg Given 07/04/2019 8:26 AM DRESSING MACHINE OPERATOR 1 mg 1 mg, Oral, DAILY, First dose on 07/03/19 at 0900, Until Discontinued, Routine Given 07/03/2019 9:40 AM DRESSING MACHINE OPERATOR 1 mg gabapentin (NEURONTIN) capsule 600 mg Given 07/04/2019 1:42 PM DRESSING MACHINE OPERATOR 600 mg 600 mg, Oral, TID, First dose on 07/02/19 at 2000, Until Discontinued, Routine Given 07/04/2019 8:25 AM DRESSING MACHINE OPERATOR 600 mg Given 07/03/2019 9:24 PM DRESSING MACHINE OPERATOR 600 mg hydralAZINE (APRESOLINE) injection 10 mg 10 mg, Intravenous, PRN - SEE INSTRUCTIONS, Starting 07/04/19 at 1639, Until Discontinued, Routine, Hypertensive emergency, Hypertension, Q4h for SBP>160 or DBP>100 lisinopril (PRINIVIL,ZESTRIL) tablet 10 mg Given 07/04/2019 12:36 PM DRESSING MACHINE OPERATOR 10 mg 10 mg, Oral, DAILY, First dose on 07/04/19 at 1230, Until Discontinued, Routine LORazepam (ATIVAN) injection 1 mg Given 07/04/2019 5:05 PM DRESSING MACHINE OPERATOR 1 mg 1 mg, Slow IV Push, Q4HPRN, Starting 07/02/19 at 2105, Until Discontinued, Routine, Anxiety, Agitation, Sedation Given 07/04/2019 12:53 PM DRESSING MACHINE OPERATOR 1 mg Given 07/03/2019 9:34 PM DRESSING MACHINE OPERATOR 1 mg metoprolol tartrate (LOPRESSOR) tablet 50 mg Given 07/04/2019 8:25 AM DRESSING MACHINE OPERATOR 50 mg 50 mg, Oral, BID, First dose on 07/02/19 at 2000, Until Discontinued, Routine Given 07/03/2019 9:24 PM DRESSING MACHINE OPERATOR 50 mg Given 07/03/2019 9:40 AM DRESSING MACHINE OPERATOR 50 mg mirtazapine (REMERON) tablet 30 mg Given 07/03/2019 9:25 PM DRESSING MACHINE OPERATOR 30 mg 30 mg, Oral, QHS, First dose on 07/02/19 at 2100, Until Discontinued, Routine Given 07/02/2019 8:10 PM DRESSING MACHINE OPERATOR 30 mg morpHINE injection 2 mg Given 07/04/2019 1:16 PM DRESSING MACHINE OPERATOR 2 mg 2 mg, Slow IV Push, Q4HPRN, Starting 07/04/19 at 1259, Until Discontinued, Routine, Pain (scale 7-10) ondansetron (ZOFRAN (PF)) injection 4 mg Given 07/04/2019 1:04 PM DRESSING MACHINE OPERATOR 4 mg 4 mg, Slow IV Push, Q6HPRN, Starting 07/02/19 at 1511, Until Discontinued, Routine, Nausea and Vomiting (N/V) oxazepam (SERAX) capsule 15 mg Given 07/04/2019 1:46 PM DRESSING MACHINE OPERATOR 15 mg 15 mg, Oral, Q12H, 2 doses, First dose on 07/04/19 at 1400, Last dose on Thu07/04/19 at 2000, Routine thiamine (VITAMIN B1) 100 mg, foLIC New Bag 07/04/2019 8:26 AM DRESSING MACHINE OPERATOR 125 mL /hr acid (FOLATE) 1 mg, multivitamin adult (INFUVITE ADULT) 3,300 unit- 150 mcg/10 mL 10 mL in NaCl 0.45% (1/2NS) IV Solution IV Infusion, at 125 mL/hr, DAILY, First dose on 07/03/19 at 0900, Until Discontinued, 1,000 mL New Bag 07/03/2019 9:39 AM DRESSING MACHINE OPERATOR 125 mL/hr thiamine (VITAMIN B1) tablet 100 mg Given 07/04/2019 8:26 AM DRESSING MACHINE OPERATOR 100 mg 100 mg, Oral, DAILY, First dose on 07/03/19 at 0900, Until Discontinued, Routine Given 07/03/2019 9:40 AM DRESSING MACHINE OPERATOR 100 mg Given 07/02/2019 12:31 PM DRESSING MACHINE OPERATOR 100 mg Medication Order MAR Action Action Date Dose Rate Site acetaminophen (TYLENOL) tablet Given 07/02/2019 2:08 PM DRESSING MACHINE OPERATOR 1,000 mg 1,000 mg 1,000 mg, Oral, ONCE, 1 dose, 07/02/19 at 1515, IDA FENTanyl PF (SUBLIMAZE (PF)) injection 75 Given 07/02/2019 2:33 PM DRESSING MACHINE OPERATOR 75 mcg mcg 75 mcg, Slow IV Push, ONCE, 1 dose, 07/02/19 at 1530, STAT HYDROcodone-acetaminophen (NORCO 5) 5-325 Given 07/04/2019 1:49 PM DRESSING MACHINE OPERATOR 1 tablet mg tablet 1 tablet 1 tablet, Oral, Q6HPRN, Starting 07/02/19 at 1511, Until 07/04/19 at 1510, Routine, Pain (scale 4-6) Given 07/04/2019 2:15 AM DRESSING MACHINE OPERATOR 1 tablet Given 07/03/2019 3:02 PM DRESSING MACHINE OPERATOR 1 tablet HYDROmorphone (DILAUDID) injection 1 mg Given 07/04/2019 8:24 AM DRESSING MACHINE OPERATOR 1 mg 1 mg, Slow IV Push, Q4HPRN, Starting 07/02/19 at 1649, Until 07/04/19 at 1300, Routine, Pain (scale 7-10), Use approved by (Faculty): ADC PROVIDER Given 07/03/2019 9:20 PM DRESSING MACHINE OPERATOR 1 mg Given 07/03/2019 12:07 PM DRESSING MACHINE OPERATOR 1 mg KCL (KLOR-CON M20) tablet 40 mEq Given 07/03/2019 5:12 PM DRESSING MACHINE OPERATOR 40 mEq 40 mEq, Oral, ONCE, 1 dose, 07/03/19 at 1730, Routine ketorolac (TORADOL) injection 30 mg Given 07/02/2019 12:09 PM DRESSING MACHINE OPERATOR 30 mg 30 mg, Slow IV Push, ONCE, 1 dose, 07/02/19 at 1315, IDA, seafood team member approving Restricted medication: DWIGHT ALANIS LORazepam (ATIVAN) injection 1 mg Given 07/02/2019 12:10 PM DRESSING MACHINE OPERATOR 1 mg 1 mg, Slow IV Push, ONCE, 1 dose, 07/02/19 at 1300, STAT LORazepam (ATIVAN) tablet 1 mg Given 07/02/2019 2:08 PM DRESSING MACHINE OPERATOR 1 mg 1 mg, Oral, ONCE, 1 dose, 07/02/19 at 1515, IDA morpHINE injection 2 mg Given 07/02/2019 3:44 PM DRESSING MACHINE OPERATOR 2 mg 2 mg, Slow IV Push, Q4HPRN, Starting 07/02/19 at 1511, Until 07/02/19 at 2109, Routine, Pain (scale 7-10) oxazepam (SERAX) capsule 15 mg Given 07/03/2019 12:07 PM DRESSING MACHINE OPERATOR 15 mg 15 mg, Oral, Q6H, 4 doses, First dose on 07/02/19 at 1800, Last dose on 07/03/19 at 1200, Routine Given 07/03/2019 7:38 AM DRESSING MACHINE OPERATOR 15 mg Given 07/03/2019 12:44 AM DRESSING MACHINE OPERATOR 15 mg oxazepam (SERAX) capsule 15 mg Given 07/04/2019 2:14 AM DRESSING MACHINE OPERATOR 15 mg 15 mg, Oral, Q8H, 3 doses, First dose on 07/03/19 at 1800, Last dose on 07/04/19 at 0600, Routine Given 07/03/2019 6:16 PM DRESSING MACHINE OPERATOR 15 mg documented in this encounter Insurance Payer Benefit Plan / Subscriber ID Effective Dates Phone Address Type Group MEDICARE MEDICARE PART xxxxxxxxxxx 2017-Luigi [phone] [address] Medicare A & B t 2 [id number] [place]UTH[place] P[place]TER [id number] documented as of this encounter
--- OUTSIDE RECORDS SUMMARY | 2019-07-10 19:15 | XMS REPORT | Summary of Care ---
:1970 Author Organization [facility] [[email or web address]] - [facility] Address [address] [place] [id number] Care Team Providers Name Role Phone Chago Owen MD Primary Care Provider Reason for Visit Reason Comments Transition Of Care Encounter Details Date Type Department Care Team Description 07/05/2019 Transition of Care [facility] Flori Franco RN Transition Of Care [facility]- [address] [place] [id number] Allergies No Known Allergiesdocumented as of this encounter (statuses as of 07/05/2019) Medications Medication Sig Dispensed Refills Start Date End Date Status mirtazapine (REMERON) Take 30 mg by 0 Active 30 mg tablet mouth at bedtime. gabapentin (NEURONTIN) Take 600 mg by 0 Active 300 mg capsule mouth 3 (three) times daily. aspirin 81 mg chewable Take 1 tablet by 90 tablet 3 05/18/2019 Active tabletIndications: mouth daily. Type 2 WI (myocardial infarction) atorvastatin 40 mg Take 1 tablet by 30 tablet 2 05/17/2019 Active tabletIndications: mouth at Type 2 WI (myocardial bedtime. infarction) nitroglycerin 0.[address] 1 tablet 1 Bottle 0 05/17/2019 Active sublingual under the tongue tabletIndications: every 5 (five) Type 2 WI (myocardial minutes as infarction) needed for Chest pain. metoprolol tartrate 50 Take 1 tablet by 60 tablet 3 05/17/2019 Active mg tabletIndications: mouth 2 (two) Type 2 WI (myocardial times daily. infarction), Secondary hypertension foLIC [...] as of this encounter (statuses as of 07/05/2019) Active Problems Problem Noted Date Elevated blood pressure reading 07/03/2019 Tachycardia 07/03/2019 Nonobstructive atherosclerosis of coronary artery 07/03/2019 Essential hypertension 07/03/2019 Atypical chest pain 07/03/2019 Alcohol withdrawal 07/02/2019 NSTEMI (non-ST elevated myocardial infarction) 05/17/2019 Obesity (BMI 30-39.9) 05/17/2019 Type 2 WI (myocardial infarction) 05/17/2019 Secondary hypertension 05/17/2019 Depression 07/04/2012 Acute respiratory failure 07/04/2012 Tobacco abuse disorder 07/04/2012 Alcohol abuse 07/04/2012 Heroin use 07/04/2012 Anxiety disorder 07/04/2012 Suicidal ideation 09/24/2011 documented as of this encounter (statuses as of 07/05/2019) Social History Tobacco Use Types Packs/Day Years [...] Office Visit Family Medicine Chago Owen MD [address] [place] [address] Dr Patel [address] [place] [id number] [phone] Health Maintenance Due Date Last Done Comments [...] BOX Medicare A & B t 2 [id number] [place] [id number] documented as of this encounter
--- OUTSIDE RECORDS SUMMARY | 2019-07-10 19:15 | XMS REPORT | Summary of Care ---
:1970 Author Organization [facility] - Health Address [address] [place] [address] Care Team Providers Name Role Phone Chago Owen MD Primary Care Provider Reason for Visit Reason Comments Shortness of Breath Auth/Cert Status Reason Specialty Diagnoses / Referred By Referred To Procedures Contact Contact [facility] [address] [place] [address] [place] [address] Encounter Details Date Type Department Care Team Description 07/10/2019 Emergency [facility] Anselmo Zuniga DO Rib pain on left side Department [address] [place] [address]. (Primary Dx) [address] [place] [address] [address] [place] [address] [place], [place] [id number] Allergies No Known Allergiesdocumented as of this [...] 05/18/2019 Active tabletIndications: mouth daily. Type 2 SC (myocardial infarction) atorvastatin 40 mg Take 1 tablet by 30 tablet 2 05/17/2019 Active tabletIndications: mouth at Type 2 SC (myocardial bedtime. infarction) nitroglycerin 0.[address] 1 tablet 1 Bottle 0 05/17/2019 Active sublingual under the tongue tabletIndications: every 5 (five) Type 2 SC (myocardial minutes as infarction) needed for Chest pain. metoprolol tartrate 50 Take 1 tablet by 60 tablet 3 05/17/2019 Active mg tabletIndications: mouth 2 (two) Type 2 SC (myocardial times daily. infarction), Secondary hypertension foLIC [...] 05/17/2019 Obesity (BMI 30-39.9) 05/17/2019 Type 2 SC (myocardial infarction) 05/17/2019 Secondary hypertension 05/17/2019 Depression [...] Sign Reading Time Taken Comments Blood Pressure 153/83 07/10/2019 5:35 PM LIVE TRUCK TECHNICIAN Pulse 90 07/10/2019 5:35 PM LIVE TRUCK TECHNICIAN Temperature 36.7 C (98 F) 07/10/2019 5:35 PM LIVE TRUCK TECHNICIAN Respiratory Rate 18 07/10/2019 5:35 PM LIVE TRUCK TECHNICIAN Oxygen Saturation 96% 07/10/2019 5:35 PM LIVE TRUCK TECHNICIAN Inhaled Oxygen Concentration - - Weight 117.9 kg (260 lb) 07/10/2019 5:35 PM LIVE TRUCK TECHNICIAN Height 177.8 cm (5' 10") 07/10/2019 5:35 PM LIVE TRUCK TECHNICIAN Body Mass Index 37.31 07/10/2019 5:35 PM LIVE TRUCK TECHNICIAN documented in this encounter Discharge Instructions Anselmo French DO - 07/10/2019 DIAGNOSIS Diagnoses that have been ruled out: None Diagnoses that are still under consideration: None Final diagnoses: Rib pain on left side NO LIFE-THREATENING FINDINGS ON TODAY'S EXAM. PROCEDURES IN THE ER TODAY: No orders of the defined types were placed in this encounter. MEDICATIONS ADMINISTERED IN THE ER TODAY AND DISCHARGE MEDICATIONS: No orders of the defined types were placed in this encounter. FOLLOW-UP RECOMMENDATIONS: RECOMMEND FOLLOW-UP WITH A PRIMARY CARE PROVIDER OR SPECIALIST IN 2-5 DAYS, ESPECIALLY IF NO IMPROVEMENT IN SYMPTOMS. MAY FOLLOW-UP WITH A PROVIDER OF YOUR CHOICE, SUCH : 1. A PHYSICIAN OF YOUR CHOICE 2. [facility], . LOCATIONS IN [facility] 3. [facility] [place], [address] [place] [address]; [phone] OR, IF YOU WISH TO FOLLOW-UP WITHIN THE [facility], MAY TRY THESE OPTIONS (CLINIC APPOINTMENTS AVAILABLE ON [id number] BASIS): 1. SCHEDULE AN APPOINTMENT ONLINE AT [email or web address] 2. OR CALL THE [facility] AT OR 3. OR CALL YOUR [facility] PHYSICIAN'S OFFICE DIRECTLY IF YOU ARE ALREADY AN ESTABLISHED [facility] PATIENT. RETURN TO ER FOR WORSENING OF SYMPTOMS. AttachmentsThe following attachments cannot be sent through Care Everywhere.Rib Fracture (Micronesian)documented in this encounter Plan of Treatment Date Type Specialty Care Team Description 07/12/2019 Office Visit Family Medicine Chago Owen MD [address] [place] [address] Dr Patel [address] [place] [address] [id number] Health Maintenance Due Date Last Done Comments DTaP,Tdap,and Td Vaccines (1 - 1983 Tdap) INFLUENZA VACCINE (#1) 2020 Postponed from 01/16/2019 (Refused) PNEUMOCOCCAL 0-64 YEARS COMBINED 06/01/2020 Postponed from 1978 SERIES (1 of 1 - PPSV23) (Refused) documented as of this encounter Procedures Procedure Name Priority Date/Time Associated Diagnosis Comments NOTICE OF PRIVACY Routine 07/10/2019 5:30 PM LIVE TRUCK TECHNICIAN PRACTICES documented in this encounter Results Not on filedocumented in this encounter Visit Diagnoses Diagnosis Rib pain on left side - Primary Chest pain, unspecified documented in this encounter Insurance Payer Benefit Plan / Subscriber ID Effective Dates Phone Address Type Group MEDICARE MEDICARE PART xxxxxxxxxxx 2017-Luigi [phone] [address] Medicare A & B t 2 [id number] [place] P[place]TER [id number] documented as of this encounter
[2019-07-10] MEDS ORDERED: MORPHINE 4 MG/ML SYR ONE (20:34)
[2019-07-10] MEDS ORDERED: NA CHLORIDE 0.9% 1,000 ML ONE (20:34)
[2019-07-10] MEDS ORDERED: ONDANSETRON 4 MG/2 ML VIAL ONE (20:34)
--- NOTE | 2019-07-10 20:39 | RAD REPORT ---
EXAM DESCRIPTION: Indra Single View07/10/2019 8:30 pm CLINICAL HISTORY: cough COMPARISON: 2017 FINDINGS: The lungs appear clear of acute infiltrate. The heart is normal size IMPRESSION: No acute abnormalities displayed
[2019-07-10 20:42] LABS: Protime INR 1.11
[2019-07-10 20:44] LABS: Absolute Lymphocytes (CBC) 1.9 K/uL (0.7-4.9); Basophils % 0.8 % (0-1.3); Hematocrit 42.3 % (39.6-49.0); Lymphocytes % 34.1 % (15.3-44.8); MPV 7.5 fL (7.6-11.3)
[2019-07-10 21:02] LABS: ALT/SGPT 58 U/L (12-78); AST/SGOT 51 U/L (15-37); Albumin 3.8 g/dL (3.4-5.0); Alkaline Phosphatase 195 U/L (45-117); BUN Blood Urea Nitrogen 9 mg/dL (7-18); Bicarbonate 25 mmol/L (21-32); Bilirubin Direct 0.2 mg/dL (0-0.2); Bilirubin Total 0.3 mg/dL (0.2-1.0); Glucose Level 86 mg/dL (74-106); Magnesium 2.6 mg/dL (1.8-2.4); NT PRO-BNP 210 pg/mL (<125); Potassium 3.9 mmol/L (3.5-5.1); Protein, Total 7.8 g/dL (6.4-8.2); Sodium Level 143 mmol/L (136-145); Troponin I < 0.02 ng/mL (0.0-0.045)
[2019-07-10] MEDS ORDERED: LORazepam 2 MG/ML VIAL ONE (21:26)
[2019-07-10 21:29] LABS: Barbiturates NEGATIVE (NEGATIVE); Benzodiazepines NEGATIVE (NEGATIVE); Cocaine NEGATIVE (NEGATIVE); METHAMPHETAM NEGATIVE (NEGATIVE); Methadone NEGATIVE (NEGATIVE); Opiates NEGATIVE (NEGATIVE); Phencyclidine NEGATIVE (NEGATIVE); THC Cannibis NEGATIVE (NEGATIVE)
[2019-07-10] MEDS ORDERED: HYDROCODONE/APAP 7.5/325 MG TAB ONE (23:46)
--- NOTE | 2019-07-11 01:33 | EDPHYS ---
Physician Documentation [facility] Name: Frank Polo Age: 48 yrs Sex: Male : 1970 Arrival Date: 07/10/2019 Time: 19:14 Bed 23 Private MD: ED Physician Devin Figueredo HPI: 07/10 20:00 This 48 yrs old Male presents to ER via Wheelchair with complaints of Chest pkl Pain, Breathing Difficulty, RIB PAIN. 20:00 The patient or guardian reports chest pain that is located primarily in the left sided pkl chest. Onset: 1 week(s) ago. The pain does not radiate. Associated signs and symptoms: Pertinent positives: shortness of breath. The chest pain is described as sharp. Patient said he fell 1 week ago and was admitted to [facility] for broken ribs. Patient was discharged few days ago. Now complained of increased pain in his left chest and difficulty breathing.. Historical: - Allergies: 19:22 NKDA; ca1 - PMHx: 19:22 Alcoholism; Bipolar disorder; ca1 - PSHx: 19:22 left ankle surgery; ca1 - Immunization history:: Adult Immunizations up to date, Flu vaccine is not up to date. - Coronavirus screen:: The patient has NOT traveled to [place] in the past 14 days. The patient has NOT had contact with known/suspected case of Coronavirus?. - Social history:: Smoking status: Patient reports use of chewing tobacco. - Ebola Screening: : Patient negative for fever greater than or equal to 101.5 degrees Fahrenheit, and additional compatible Ebola Virus Disease symptoms Patient denies exposure to infectious person Patient denies travel to an Ebola-affected area in the 21 days before illness onset No symptoms or risks identified at this time. ROS: 20:06 Eyes: Negative for injury, pain, redness, and discharge, ENT: Negative for injury, pkl pain, and discharge, Neck: Negative for injury, pain, and swelling. 20:06 Cardiovascular: Positive for chest pain, of the left side chest. 20:06 Respiratory: Positive for shortness of breath. 20:06 Abdomen/GI: Negative for abdominal pain, nausea, vomiting, and diarrhea. 20:06 Back: Negative for acute changes. 20:06 : Negative for urinary symptoms. 20:06 MS/extremity: Negative for acute changes. 20:06 Skin: Negative for rash. 20:06 Neuro: Negative for altered mental status. Exam: 20:06 Head/Face: Normocephalic, atraumatic. Eyes: Pupils equal round and reactive to light, pkl extra-ocular motions intact. Lids and lashes normal. Conjunctiva and sclera are non-icteric and not injected. Cornea within normal limits. Periorbital areas with no swelling, redness, or edema. ENT: Nares patent. No nasal discharge, no septal abnormalities noted. Tympanic membranes are normal and external auditory canals are clear. Oropharynx with no redness, swelling, or masses, exudates, or evidence of obstruction, uvula midline. Mucous membranes moist. Neck: Trachea midline, no thyromegaly or masses palpated, and no cervical lymphadenopathy. Supple, full range of motion without nuchal rigidity, or vertebral point tenderness. No Meningismus. 20:06 Chest/axilla: Palpation: tenderness, that is moderate, of the left chest. 20:06 Cardiovascular: Rate: normal, Rhythm: regular. 20:06 ECG was reviewed by the Attending Physician. 20:06 Respiratory: the patient does not display signs of respiratory distress, Respirations: normal, Breath sounds: are clear throughout. 20:06 Abdomen/GI: Bowel sounds: normal, Palpation: abdomen is soft and non-tender, in all quadrants. 20:06 Back: Exam negative for acute changes. 20:06 : Exam negative for acute changes. 20:06 Musculoskeletal/extremity: Exam is negative for acute changes. 20:06 Skin: Exam negative for rash. 20:06 Neuro: Orientation: is normal, Mentation: is normal, Cranial nerves: grossly normal, Motor: is normal. Vital Signs: 19:22 BP 108 / 71; Pulse 89; Resp 19 S; Temp 97.1(TE); Pulse Ox 96% on R/A; Weight 117.93 kg ca1 (R); Height 5 ft. 10 in. (177.80 cm) (R); 21:30 BP 122 / 49; Pulse 92; Resp 18; Pulse Ox 97% on R/A; wh 22:47 BP 103 / 85; Pulse 87; Resp 17; Temp 98.1(O); Pulse Ox 97% ; lt1 23:30 BP 121 / 63; Pulse 90; Resp 18; Pulse Ox 95% on R/A; wh 19:22 Body Mass Index 37.31 (117.93 kg, 177.80 cm) ca1 MDM: 19:39 Patient medically screened. pkl 23:40 Data reviewed: vital signs, nurses notes, lab test result(s), EKG, radiologic studies, pkl CT scan, plain films. 07/10 20:06 Order name: ABG pkl 07/10 21:16 Order name: Urine Dipstick--Ancillary (enter results) [facility] 07/10 19:34 Order name: EKG; Complete Time: 02:07 07/10 19:34 Order name: Cardiac monitoring; Complete Time: 19:39 07/10 19:34 Order name: EKG - Nurse/Tech; Complete Time: 19:39 07/10 19:34 Order name: IV Saline Lock; Complete Time: 19:39 07/10 19:34 Order name: Labs collected and sent; Complete Time: 19:39 07/10 19:34 Order name: O2 Per Protocol; Complete Time: 19:39 07/10 19:34 Order name: O2 Sat Monitoring; Complete Time: 19:39 Administered Medications: 20:31 Drug: NS 0.9% 1000 ml Route: IV; Rate: 125 ml/hr; Site: left wrist; 23:55 Follow up: Response: No adverse reaction; IV Status: Completed infusion 20:33 Drug: morphine 4 mg Route: IVP; Site: left wrist; 23:54 Follow up: Response: No adverse reaction; RASS: Alert and Calm (0) 20:35 Drug: Zofran 4 mg Route: IVP; Site: left wrist; 23:54 Follow up: Response: No adverse reaction; Nausea is decreased 21:24 Drug: Ativan 1 mg Route: IVP; Site: left wrist; 23:54 Follow up: Response: No adverse reaction; RASS: Alert and Calm (0) 23:43 Drug: [place] (7.5 mg-325 mg) 1 tabs Route: PO; 23:53 Follow up: Response: No adverse reaction; Pain is decreased; RASS: Alert and Calm (0) Disposition: 07/10/19 23:42 Discharged to Home. Impression: Fractures left 5th through 10th ribs. Anxiety disorder. - Condition is Stable. - Prescriptions for Tylenol- Codeine #3 300-30 mg Oral Tablet - take 1 tablet by ORAL route every 8 hours As needed; 15 tablet. Ativan 1 mg Oral Tablet - take 1 tablet by ORAL route 2 times per day As needed; 10 tablet. - Medication Reconciliation Form, Thank You Letter, Antibiotic Education, Prescription Opioid Use form. - Follow up: Private Physician; When: 2 - 3 days; Reason: Re-evaluation by your physician. - Problem is new. - Symptoms have improved. Signatures: Dispatcher [employer] EDMN Devin Figueredo MD MD pkl Vida Chong Valencia, EDISON Carreon RN ca1 Corrections: (The following items were deleted from the chart) 23:55 23:42 07/10/2019 23:42 Discharged to Home. Impression: Fractures left 5th through 10th wh ribs. Anxiety disorder. Condition is Stable. Forms are Medication Reconciliation Form, Thank You Letter, Antibiotic Education, Prescription Opioid Use. Follow up: Private Physician; When: 2 - 3 days; Reason: Re-evaluation by your physician. Problem is new. Symptoms have improved. pkl
--- NOTE | 2019-07-11 01:33 | ER ---
Nurse's Notes [facility] Name: Frank Polo Age: 48 yrs Sex: Male : 1970 Arrival Date: 07/10/2019 Time: 19:14 Bed 23 Private MD: Diagnosis: Fractures left 5th through 10th ribs. Anxiety disorder Presentation: 07/10 19:19 Presenting complaint: Patient states: I broke my ribs over a week ago after a fall. ca1 Since them, I have been having trouble breathing. I was admitted at [facility] for 3 days, but they seem to have not helped me. I drink couple of beers everyday to help with the pain. Transition of care: patient was not received from another setting of care. Onset of symptoms was July 10, 2019. Risk Assessment: Do you want to hurt yourself or someone else? Patient reports no desire to harm self or others. Initial Sepsis Screen: Does the patient meet any 2 criteria? No. Patient's initial sepsis screen is negative. Does the patient have a suspected source of infection? No. Patient's initial sepsis screen is negative. Care prior to arrival: None. 19:19 Method Of Arrival: Wheelchair ca1 19:19 Acuity: PRANAV 3 ca1 Historical: - Allergies: 19:22 NKDA; ca1 - PMHx: 19:22 Alcoholism; Bipolar disorder; ca1 - PSHx: 19:22 left ankle surgery; ca1 - Immunization history:: Adult Immunizations up to date, Flu vaccine is not up to date. - Coronavirus screen:: The patient has NOT traveled to [place] in the past 14 days. The patient has NOT had contact with known/suspected case of Coronavirus?. - Social history:: Smoking status: Patient reports use of chewing tobacco. - Ebola Screening: : Patient negative for fever greater than or equal to 101.5 degrees Fahrenheit, and additional compatible Ebola Virus Disease symptoms Patient denies exposure to infectious person Patient denies travel to an Ebola-affected area in the 21 days before illness onset No symptoms or risks identified at this time. Screenin:00 Abuse screen: Denies threats or abuse. Abuse screen: Denies injuries from another. wh Nutritional screening: No deficits noted. Nutritional screening:. Tuberculosis screening: No symptoms or risk factors identified. Fall Risk Fall in past 12 months (25 points). Assessment: 19:45 General: Appears in no apparent distress. Behavior is cooperative, Smells of alcohol. Pain: Complains of pain in chest Pain does not radiate. Pain currently is 8 out of 10 on a pain scale. Quality of pain is described as aching, sharp, Pain began 1 week ago. Neuro: Level of Consciousness is awake, alert, obeys commands, Oriented to person, place, time, situation, Appropriate for age. Cardiovascular: Heart tones S1 S2 Rhythm is regular. Respiratory: Airway is patent Respiratory effort is even, unlabored, Respiratory pattern is regular, symmetrical, Breath sounds are clear bilaterally. GI: Abdomen is round non-distended. : No signs and/or symptoms were reported regarding the genitourinary system. EENT: No signs and/or symptoms were reported regarding the EENT system. Derm: Skin is intact, is healthy with good turgor, Skin is pink, warm \T\ dry. normal. Musculoskeletal: Circulation, motion, and sensation intact. 21:05 Reassessment: Patient appears in no apparent distress at this time. No changes from previously documented assessment. Patient and/or family updated on plan of care and expected duration. Pain level reassessed. Patient is alert, oriented x 3, equal unlabored respirations, skin warm/dry/pink. Pt C/O anxiety notified Provider, at bedside explaining POC. 22:05 Reassessment: Patient appears in no apparent distress at this time. No changes from previously documented assessment. Patient and/or family updated on plan of care and expected duration. Pain level reassessed. Patient is alert, oriented x 3, equal unlabored respirations, skin warm/dry/pink. 23:00 Reassessment: Patient appears in no apparent distress at this time. No changes from previously documented assessment. Patient and/or family updated on plan of care and expected duration. Pain level reassessed. Patient is alert, oriented x 3, equal unlabored respirations, skin warm/dry/pink. Patient states feeling better. Patient states symptoms have improved. Vital Signs: 19:22 BP 108 / 71; Pulse 89; Resp 19 S; Temp 97.1(TE); Pulse Ox 96% on R/A; Weight 117.93 kg ca1 (R); Height 5 ft. 10 in. (177.80 cm) (R); 21:30 BP 122 / 49; Pulse 92; Resp 18; Pulse Ox 97% on R/A; wh 22:47 BP 103 / 85; Pulse 87; Resp 17; Temp 98.1(O); Pulse Ox 97% ; lt1 23:30 BP 121 / 63; Pulse 90; Resp 18; Pulse Ox 95% on R/A; wh 19:22 Body Mass Index 37.31 (117.93 kg, 177.80 cm) ca1 ED Course: 19:14 Patient arrived in ED. jg7 19:21 Triage completed. ca1 19:22 Arm band placed on right wrist. ca1 19:33 Vida Chong is Primary Nurse. wh 19:39 Devin Figueredo MD is Attending Physician. pkl 20:00 Patient has correct armband on for positive identification. Placed in gown. Bed in low wh position. Call light in reach. Side rails up X 1. school lunch monitor on. Pulse ox on. NIBP on. 20:00 Patient maintains SpO2 saturation greater than 95% on room air. 20:28 Inserted saline lock: 20 gauge in left wrist, using aseptic technique. Blood collected. jd3 23:51 No provider procedures requiring assistance completed. IV discontinued, intact, wh bleeding controlled, No redness/swelling at site. Administered Medications: 20:31 Drug: NS 0.9% 1000 ml Route: IV; Rate: 125 ml/hr; Site: left wrist; 23:55 Follow up: Response: No adverse reaction; IV Status: Completed infusion 20:33 Drug: morphine 4 mg Route: IVP; Site: left wrist; 23:54 Follow up: Response: No adverse reaction; RASS: Alert and Calm (0) 20:35 Drug: Zofran 4 mg Route: IVP; Site: left wrist; 23:54 Follow up: Response: No adverse reaction; Nausea is decreased 21:24 Drug: Ativan 1 mg Route: IVP; Site: left wrist; 23:54 Follow up: Response: No adverse reaction; RASS: Alert and Calm (0) 23:43 Drug: Gideon (7.5 mg-325 mg) 1 tabs Route: PO; 23:53 Follow up: Response: No adverse reaction; Pain is decreased; RASS: Alert and Calm (0) Outcome: 23:42 Discharge ordered by . pkl 23:51 Discharged to home ambulatory. 23:51 Condition: stable 23:51 Discharge instructions given to patient, Instructed on discharge instructions, follow up and referral plans. no drinking with medication, no driving heavy equipment, medication usage, POC Demonstrated understanding of instructions, follow-up care, medications, POC Prescriptions given X 2. 23:55 Patient left the ED. Signatures: Devin Figueredo MD MD pkl Habalo, Winsy Keyshawn Armstrong RN RN jd3 Velma Birmingham RN RN ca1 Sun, Cally 1 Glenn, Clemencia jg7 Corrections: (The following items were deleted from the chart) 23:53 23:00 Reassessment: Patient appears in no apparent distress at this time. No changes wh from previously documented assessment. Patient and/or family updated on plan of care and expected duration. Pain level reassessed. Patient is alert, oriented x 3, equal unlabored respirations, skin warm/dry/pink.
[2019-07-11 02:57] VITALS: TEMP 98.1
[2019-07-11 02:58] VITALS: BP 121/63; O2SAT 95
[2019-07-11 04:01] LABS: Urine Blood NEGATIVE (NEG); Urine Glucose NEGATIVE (NEG); Urine Protein NEGATIVE (NEG); Urine Specific Gravity <1.005 (1.005-1.030); Urine pH 5.5 (5.0-7.0)
--- NOTE | 2019-07-11 08:11 | RAD REPORT ---
EXAM DESCRIPTION: US - Abdomen Exam Limited - 07/10/2019 11:26 pm CLINICAL HISTORY: Abdominal pain. COMPARISON: 2015 FINDINGS: The gallbladder wall is not thickened. A gallstone is not seen. The biliary tree is normal caliber. Fatty liver is present IMPRESSION: Unremarkable gallbladder ultrasound.
--- NOTE | 2019-07-11 08:54 | EKG ---
Test Date: 2019-07-10 Test Time: 19:31:00 Programmer Developer: PETER MEASUREMENT RESULTS: Intervals: Rate: 88 FL: 170 QRSD: 92 QT: 370 QTc: 447 [place]: P: 15 FL: 170 QRS: 21 T: 29 INTERPRETIVE STATEMENTS: Normal sinus rhythm Cannot rule out Anterior infarct, age undetermined Abnormal ECG Compared to ECG 10/18/2017 05:00:20 Sinus tachycardia no longer present Electronically Signed On 07-11-19 08:52:59 ENVIRONMENTAL SERVICES SPECIALIST by Antonino Alexander
--- NOTE | 2019-07-11 10:49 | RAD REPORT ---
EXAM DESCRIPTION: CT - Abdomen Wo Contrast - 07/11/2019 4:55 am CLINICAL HISTORY: 48 years Male Chest Pain TECHNIQUE: Contiguous axial images obtained through the chest and abdomen without IV contrast. Coron al and sagittal reformatted images provided. This CT exam was performed according to our departmental dose-optimization program, which includes on e or more of the following dose reduction techniques: automated exposure control, adjustment of the m A and/or kV according to patient size, and/or use of iterative reconstruction technique. COMPARISON: No prior exams provided for comparison. FINDINGS: There are acute fractures of the left 5th through 10th ribs anterolaterally. No acute frac ture in the chest or thoracic spine. There is no mediastinal hematoma, pericardial effusion, pleural effusion, or pneumothorax. The heart is normal in size and there is no thoracic aortic aneurysm. Minimal atelectasis vs. contusions in the lingula. The lungs are otherwise clear without focal consol idation. No enlarged mediastinal lymph nodes. The central airways are patent. No acute fracture in the visualized lumbar spine. Diffuse fatty infiltration of the liver, which is moderately enlarged without laceration or visualize d focal lesion. The unenhanced biliary tree, gallbladder, pancreas, spleen, adrenal glands, and kidneys are normal. N o visualized retroperitoneal hemorrhage, ascites, or free intraperitoneal air. The abdominal aorta an d its branches are normal in caliber. There is no visualized bowel obstruction or wall thickening. IMPRESSION: Acute fractures of the left fifth through 10th ribs anterolaterally. Minimal atelectasis vs. contusions in the lingula. No other acute injury in the chest. No acute injury in the abdomen. Fatty infiltration of the liver, which is enlarged. Electronically signed by: Larisa Booth MD 07/10/2019 11:27 PM CAT CRACKER OPERATOR Due to temporary technical issues with the PACS/Fluency reporting system, reports are being signed by the in house radiologist as a courtesy to ensure prompt reporting. The interpreting radiologist is f ully responsible for the content of the report.
== END 2019-07-10 23:55 | disposition home or self-care (01) ==
LOC: ER 19:10
DX: S22.42XA Multiple fractures of ribs, left side, initial encounter for closed fracture (principal); F41.9 Anxiety disorder, unspecified; F10.20 Alcohol dependence, uncomplicated; F17.220 Nicotine dependence, chewing tobacco, uncomplicated
CPT/HCPCS: 96361; 93005; 85025; 80048; 36415; 80320; 83735; 85610; 80076; 80307 ×8; 81003; 84484; 83880; 74150; 71250; 71045; 76705; 96375; 96374; 99285; J7030; J2405

== ENCOUNTER 2019-07-18 20:20 | Emergency (ER) | payer OTHER ==
--- OUTSIDE RECORDS SUMMARY | 2019-07-18 20:22 | XMS REPORT ---
:1970 [facility] Address [address] [place] [address] Care Team Providers Name Role Phone UNKNOWN, REFFERING Primary Care Provider Unavailable Problems This patient has no known problems. Allergies, Adverse Reactions, Alerts This patient has no known allergies or adverse reactions. Medications This patient has no known medications. Encounters Start End Encounter Admission Attending Care Care Encounter Date/Time Date/Time Type Type Clinicians Facility Department ID 2016-06-11 Inpatient C [facility] [id number] 15:30:00
--- OUTSIDE RECORDS SUMMARY | 2019-07-18 20:23 | XMS REPORT | Summary of Care ---
:1970 Author Organization [facility] Address [address] [place] [id number] Care Team Providers Name Role Phone Chago Owen MD Primary Care Provider Reason for Visit Reason Comments Rx Concern/Question Encounter Details Date Type Department Care Team Description 07/08/2019 Telephone [facility] Pediatric Chago Owen MD Rx Concern/Question and Adult Primary Care- [address] [place] [address] Dr [place] [address] , [place] [address] [facility] [address] [place] [id number] [phone] Allergies No Known Allergiesdocumented as of this encounter (statuses as of 2019) Medications Medication Sig Dispensed Refills Start Date [...] as of this encounter (statuses as of 2019) Active Problems Problem Noted Date Elevated blood [...] as of this encounter (statuses as of 2019) Social History Tobacco Use Types Packs/Day Years [...] filedocumented in this encounter Plan of Treatment Health Maintenance Due Date Last Done Comments [...] BOX Medicare A & B t 2 [id number] [place] [id number] documented as of this encounter
[2019-07-18] MEDS ORDERED: DIAZEPAM 5 MG TABLET ONE (20:38)
--- NOTE | 2019-07-18 21:00 | ER ---
Nurse's Notes [facility] Name: Frank Polo Age: 49 yrs Sex: Male : 1970 Arrival Date: 07/18/2019 Time: 20:21 Bed External Waiting Private MD: Diagnosis: Chest pain, unspecified;Anxiety disorder, unspecified Presentation: 07/17 20:11 Chief complaint: Patient states: that at 1700 he started to have nausea, shortness of fc breath and chest pain. Pt also states that he has anxiety and is out of Ativan. Coronavirus screen: The patient has NOT traveled to [place] in the past 14 days. Proceed with normal triage procedures. The patient has NOT had contact with known and/or suspected case of Coronavirus. Proceed with normal triage procedures. Ebola Screen: Patient negative for fever greater than or equal to 101.5 degrees Fahrenheit, and additional compatible Ebola Virus Disease symptoms Patient denies exposure to infectious person. Patient denies travel to an Ebola-affected area in the 21 days before illness onset. Initial Sepsis Screen: Does the patient meet any 2 criteria? HR > 90 bpm. Yes Does the patient have a suspected source of infection? No. Patient's initial sepsis screen is negative. Risk Assessment: Do you want to hurt yourself or someone else? Patient reports no desire to harm self or others. Onset of symptoms was July 18, 2019 at 17:00. Care prior to arrival: Medication(s) given: ASA, 81 mg, x 4, Nitroglycerin, 0.4 mg SL x 1, IV initiated. 18 GA, in the right forearm. Transition of care: patient was not received from another setting of care. 20:11 Method Of Arrival: EMS: [facility] 20:11 Acuity: PRANAV 3 fc Historical: - Allergies: 20:36 NKDA; fc - Home Meds: 20:36 Remeron 15 mg oral tab [Active]; gabapentin 300 mg Oral cap 1 cap 3 times per day fc [Active]; aspirin 81 mg Oral TbEC 1 tab once daily [Active]; - PMHx: 20:36 Alcoholism; Bipolar disorder; Anxiety; fc - PSHx: 20:36 left ankle surgery; fc - Immunization history:: Last tetanus immunization: unknown, Flu vaccine is not up to date. - Social history:: Smoking status: Patient reports use of chewing tobacco. Patient uses alcohol, on a daily basis. - Family history:: not pertinent. - Hospitalizations: : Patient was recently seen at. Screenin:11 Abuse screen: Denies threats or abuse. Denies injuries from another. Nutritional fc screening: No deficits noted. Tuberculosis screening: No symptoms or risk factors identified. Assessment: 20:38 General: Appears in no apparent distress. Behavior is agitated, anxious, uncooperative. vc Pain: Complains of pain in chest. Pain: Pain does not radiate. Pain began suddenly. Cardiovascular: Reports chest pain. 20:40 Reassessment: Pt states that he does not want to stay. States that the medication we fc gave him will help. I explained that if he is truly having chest pain that we need to do the tests. He states no that he just wants to go. Dr Benavides notified. 20:47 Reassessment: Patient states that he feels fine and wants to leave. vc Vital Signs: 20:11 BP 120 / 92; Pulse 100; Resp 20; Temp 98.3(O); Pulse Ox 96% on R/A; Weight 117.93 kg fc (R); Height 5 ft. 10 in. (177.80 cm) (R); Pain 10/10; 20:11 Body Mass Index 37.31 (117.93 kg, 177.80 cm) ED Course: 20:11 Arm band placed on Patient placed in an exam room, on a stretcher. fc 20:11 Patient has correct armband on for positive identification. Bed in low position. Call fc light in reach. Side rails up X2. phototypesetting equipment monitor on. Pulse ox on. NIBP on. 20:11 No provider procedures requiring assistance completed. Maintain EMS IV. Dressing fc intact. Good blood return noted. Site clean \T\ dry. Gauge \T\ site: 20 gauge to right forearm. Patient maintains SpO2 saturation greater than 95% on room air. 20:21 Patient arrived in ED. ds1 20:23 Jani Benavides MD is Attending Physician. rn 20:28 Triage completed. fc 20:32 Sherley Nguyen RN is Primary Nurse. vc 20:45 IV discontinued, intact, bleeding controlled, No redness/swelling at site. Pressure fc dressing applied. Administered Medications: 20:38 Drug: Valium 5 mg Route: PO; vc 20:46 Follow up: Response: Other; Patient left AMA after administered. vc Intake: Outcome: : AMA AMA form signed vc : Condition: stable 20:46 Instructed on importance of receiving medical care if having chest pain 21:19 Patient left the ED. vc Signatures: Lorraine Paredes RN RN fc Sanford, Demi ds1 Jani Benavides MD MD rn Calcote, Vanessa, RN RN vc
--- NOTE | 2019-07-18 21:00 | EDPHYS ---
Physician Documentation [facility] Name: Frank Polo Age: 49 yrs Sex: Male : 1970 Arrival Date: 07/18/2019 Time: 20:21 Bed External Waiting Private MD: ED Physician Jani Benavides HPI: 07/17 20:56 This 49 yrs old Male presents to ER via EMS with complaints of Chest Pain. rn 20:56 The patient or guardian reports chest pain that is located primarily in the chest rn diffusely. Onset: at an unknown time. The pain does not radiate. Associated signs and symptoms: Pertinent positives: None. Pertinent negatives: abdominal pain, diaphoresis, shortness of breath. The chest pain is described as a heaviness. Duration: The patient or guardian reports multiple episodes, that are intermittent. Modifying factors: The symptoms are alleviated by nothing. the symptoms are aggravated by nothing. Severity of pain: At its worst the pain was moderate in the emergency department the pain has improved. The patient has experienced similar episodes in the past. Reports diffuse chest pain, heavy, reports recent "heart attack" in April, sent to [facility], but cath neg, has fallen recently and had broken ribs, reports having bad anxiety and ran out of his ativan, wants a prescription. . Historical: - Allergies: 20:36 NKDA; fc - Home Meds: 20:36 Remeron 15 mg oral tab [Active]; gabapentin 300 mg Oral cap 1 cap 3 times per day fc [Active]; aspirin 81 mg Oral TbEC 1 tab once daily [Active]; - PMHx: 20:36 Alcoholism; Bipolar disorder; Anxiety; fc - PSHx: 20:36 left ankle surgery; fc - Immunization history:: Last tetanus immunization: unknown, Flu vaccine is not up to date. - Social history:: Smoking status: Patient reports use of chewing tobacco. Patient uses alcohol, on a daily basis. - Family history:: not pertinent. - Hospitalizations: : Patient was recently seen at. ROS: 20:56 Constitutional: Negative for fever, chills, and weight loss, Eyes: Negative for injury, rn pain, redness, and discharge, Neck: Negative for injury, pain, and swelling, Cardiovascular: Negative for palpitations, and edema, Respiratory: Negative for cough, wheezing Abdomen/GI: Negative for abdominal pain, nausea, vomiting, diarrhea, and constipation, MS/Extremity: Negative for injury and deformity, Skin: Negative for injury, rash, and discoloration, Neuro: Negative for headache, weakness, numbness, tingling, and seizure. Exam: 20:56 Constitutional: This is a well developed, well nourished patient who is awake, alert, rn and in no acute distress. Anxious Head/Face: Normocephalic, atraumatic. ENT: MMM Neck: Trachea midline, no thyromegaly or masses palpated, and no cervical lymphadenopathy. Supple, full range of motion without nuchal rigidity, or vertebral point tenderness. No Meningismus. Cardiovascular: Regular rate and rhythm. No JVD. No pulse deficits. Respiratory: Lungs have equal breath sounds bilaterally, clear to auscultation. No increased work of breathing, no retractions or nasal flaring. Abdomen/GI: soft, non-tender MS/ Extremity: Pulses equal, no cyanosis. Neurovascular intact. Full, normal range of motion. Equal circumference. Neuro: Awake and alert, GCS 15, oriented to person, place, time, and situation. Cranial nerves II-XII grossly intact. Motor strength 5/5 in all extremities. Sensory grossly intact. Cerebellar exam normal. Normal gait. Vital Signs: 20:11 BP 120 / 92; Pulse 100; Resp 20; Temp 98.3(O); Pulse Ox 96% on R/A; Weight 117.93 kg fc (R); Height 5 ft. 10 in. (177.80 cm) (R); Pain 10/10; 20:11 Body Mass Index 37.31 (117.93 kg, 177.80 cm) fc MDM: 20:23 Patient medically screened. rn 20:56 Refusal of service: The patient/guardian displays adequate decision making capability rn and despite a detailed discussion of alternatives, benefits, risks, and consequences refuses: all lab tests, all X-rays. ED course: Pt refused everything after valium ordered, leaves AMA without reason. . ED course: Smells of ETOH.. 07/17 20:31 Order name: EKG; Complete Time: 20:31 rn 07/17 20:31 Order name: Cardiac monitoring; Complete Time: 20:38 rn 07/17 20:31 Order name: EKG - Nurse/Tech; Complete Time: 20:38 rn 07/17 20:31 Order name: IV Saline Lock; Complete Time: 20:38 rn 07/17 20:31 Order name: Labs collected and sent; Complete Time: 20:38 rn 07/17 20:31 Order name: O2 Per Protocol; Complete Time: 20:38 rn 07/17 20:31 Order name: O2 Sat Monitoring; Complete Time: 20:38 rn Administered Medications: 20:38 Drug: Valium 5 mg Route: PO; vc 20:46 Follow up: Response: Other; Patient left AMA after administered. vc Disposition: 07/18/19 20:59 Patient has left against medical advice. Impression: Chest pain, unspecified, Anxiety disorder, unspecified. - Patients states they are going to Home. - Condition is Stable. - Discharge Instructions: Nonspecific Chest Pain, Generalized Anxiety Disorder. Follow up: Private Physician; When: As needed; Reason: Recheck today's complaints, Re-evaluation by your physician. - Problem is an ongoing problem. - Symptoms have improved. Signatures: Dispatcher [employer] [facility] Lorraine Paredes RN RN fc Nieto, Roman, MD MD rn Calcote, Vanessa, RN RN vc Corrections: (The following items were deleted from the chart) 20:44 20:31 BASIC METABOLIC PANEL+C.LAB.BRZ ordered. [facility] 20:44 20:31 CBC+H.LAB.BRZ ordered. [facility] 20:44 20:31 PROBNP+C.LAB.BRZ ordered. [facility] 20:44 20:31 TROPONIN (EMERG DEPT USE ONLY)+C.LAB.BRZ ordered. [facility] 20:46 20:31 Chest Single View+RAD.RAD.BRZ ordered. [facility] 21:19 20:59 07/18/2019 20:59 Patients has left against medical advice. Impression: Chest vc pain, unspecified; Anxiety disorder, unspecified. Patient states they are going to Home. Condition is Stable. Follow up: Private Physician; When: As needed; Reason: Recheck today's complaints, Re-evaluation by your physician. Problem is an ongoing problem. Symptoms have improved. rn
--- NOTE | 2019-07-19 05:55 | EKG ---
Test Date: 2019-07-18 Test Time: 20:20:48 Air Force Pilot: PETER MEASUREMENT RESULTS: Intervals: Rate: 100 MN: 156 QRSD: 90 QT: 376 QTc: 485 [place]: P: 69 MN: 156 QRS: 19 T: 37 INTERPRETIVE STATEMENTS: Normal sinus rhythm normal ECG Compared to ECG 07/10/2019 19:31:00 Criteria for anterior infarct are no longer present Electronically Signed On 07-19-19 05:54:32 MUSEUM ASSISTANT by Antonino Alexander
== END 2019-07-18 21:19 | disposition left against medical advice (07) ==
LOC: ER 20:20
DX: F41.9 Anxiety disorder, unspecified (principal); F10.20 Alcohol dependence, uncomplicated; Z72.0 Tobacco use
CPT/HCPCS: 93005; 99285

== ENCOUNTER 2019-07-22 16:36 | Observation (INO) | payer OTHER ==
--- OUTSIDE RECORDS SUMMARY | 2019-07-22 16:38 | XMS REPORT ---
:1970 [facility] Address [address] [place] [address] Care Team Providers Name Role Phone UNKNOWN, REFFERING Primary Care Provider Unavailable Problems This patient has no known problems. Allergies, Adverse Reactions, Alerts This patient has no known allergies or adverse reactions. Medications This patient has no known medications. Encounters Start End Encounter Admission Attending Care Care Encounter Date/Time Date/Time Type Type Clinicians Facility Department ID 2016-06-11 Inpatient C [facility] [id number] 15:30:00
--- NOTE | 2019-07-22 17:20 | RAD REPORT ---
EXAM DESCRIPTION: RAD - Chest Single View - 07/22/2019 5:15 pm CLINICAL HISTORY: RIB PAIN - LEFT Chest pain. COMPARISON: Chest Single View dated 07/10/2019; Chest Single View dated 03/30/2017; Chest Single View dated 03/20/2017; CHEST SINGLE VIEW dated 02/16/2012 FINDINGS: Portable technique limits examination quality. The lungs are grossly clear. The heart is normal in size. No gross rib fracture seen. The left latera l inferior ribs are somewhat poorly visualized due to soft tissue superimposition.
[2019-07-22] MEDS ORDERED: THIAMINE 200 MG/2 ML INJ ONE ×2 (17:21→19:59)
[2019-07-22] MEDS ORDERED: MORPHINE 4 MG/ML SYR ONE (17:21)
[2019-07-22] MEDS ORDERED: LORazepam 2 MG/ML VIAL ONE ×2 (17:21→19:39)
[2019-07-22] MEDS ORDERED: ONDANSETRON 4 MG/2 ML VIAL ONE ×2 (17:22→17:56)
[2019-07-22] MEDS ORDERED: NA CHLORIDE 0.9% 2,000 ML ONE (17:22)
[2019-07-22] MEDS ORDERED: FAMOTIDINE 20 MG/2 ML VIAL IV ONE (17:22)
[2019-07-22 17:32] LABS: Barbiturates NEGATIVE (NEGATIVE); Benzodiazepines NEGATIVE (NEGATIVE); Cocaine NEGATIVE (NEGATIVE); METHAMPHETAM NEGATIVE (NEGATIVE); Methadone NEGATIVE (NEGATIVE); Opiates NEGATIVE (NEGATIVE); Phencyclidine NEGATIVE (NEGATIVE); THC Cannibis NEGATIVE (NEGATIVE)
[2019-07-22 17:55] LABS: Absolute Lymphocytes (CBC) 1.9 K/uL (0.7-4.9); RBC Red Blood Cell Count 5.73 M/uL (4.33-5.43)
[2019-07-22 18:14] LABS: ALT/SGPT 81 U/L (12-78); AST/SGOT 127 U/L (15-37); Albumin 4.1 g/dL (3.4-5.0); Alkaline Phosphatase 164 U/L (45-117); BUN Blood Urea Nitrogen 6 mg/dL (7-18); Bicarbonate 24 mmol/L (21-32); Bilirubin Direct 0.2 mg/dL (0-0.2); Bilirubin Total 0.5 mg/dL (0.2-1.0); Glucose Level 112 mg/dL (74-106); Lipase 397 U/L (73-393); Magnesium 2.3 mg/dL (1.8-2.4); NT PRO-BNP 12 pg/mL (<125); Potassium 3.4 mmol/L (3.5-5.1); Protein, Total 8.7 g/dL (6.4-8.2); Sodium Level 136 mmol/L (136-145); Troponin (Emerg Dept Use Only) < 0.02 ng/mL (0.0-0.045)
[2019-07-22] MEDS ORDERED: HYDROMORPHONE HCL 0.5 MG/0.5 ML INJ ONE ×2 (19:09→20:12)
--- NOTE | 2019-07-22 19:10 | RAD REPORT ---
EXAM DESCRIPTION: CT - Head C Spine Cap W Con - 07/22/2019 6:52 pm CLINICAL HISTORY: Trauma, head and neck injury. Chest, abdomen and pelvis pain. PAIN COMPARISON: Abdomen Wo Contrast dated 07/10/2019; Thorax Wo Con dated 07/10/2019 TECHNIQUE: CT head without contrast. CT cervical spine without contrast with coronal and sagittal reformatted images. CT chest, abdomen and pelvis with IV contrast (approximately 100 mL nonionic IV contrast) with lama l and sagittal reformatted images of the spine. All CT scans are performed using dose optimization technique as appropriate and may include automated exposure control or mA/KV adjustment according to patient size. FINDINGS: CT HEAD WITHOUT CONTRAST: No intracranial hemorrhage, hydrocephalus or extra-axial fluid collection. No areas of brain edema o r midline shift. The paranasal sinuses and mastoids are clear. The calvarium is intact. CT CERVICAL SPINE WITHOUT CONTRAST: No fracture or subluxation. The prevertebral soft tissues are normal in thickness. CT CHEST, ABDOMEN, PELVIS WITH CONTRAST: The lungs are clear.Filling defect is seen in the right main as well as right lower lobe pulmonary ar terial tree compatible with pulmonary emboli. Small emboli also present left segmental and subsegment al branches.No pneumothorax or pericardial/pleural fluid. Small hiatal hernia is present. No evidence of intra-abdominal visceral injury, free fluid or free air. Advanced fatty liver. Small bilateral fat containing inguinal hernias. Multiple healing left-sided rib fractures involving rib 5-10. No acute rib fracture seen. IMPRESSION: Bilateral pulmonary embolism is present as detailed. Healing left anterolateral rib fractures. Fatty liver.
--- NOTE | 2019-07-22 19:31 | ER ---
Nurse's Notes [facility] Name: Frank Polo Age: 49 yrs Sex: Male : 1970 Arrival Date: 07/22/2019 Time: 16:39 Bed 2 Private MD: Diagnosis: Dyspnea;Pulmonary embolism-bilateral;Alcohol abuse;Alcohol abuse with intoxication;Hypokalemia Presentation: 07/21 16:41 Chief complaint: Patient states: "I broke my ribs about a month ago and they are still aa5 hurting and it's hard for me to breath". Pt states "I think I am also having withdrawals, I normally drink a 6-pack and I did drink the 6-pack about 6 hours ago but I am so shaky". Coronavirus screen: The patient has NOT traveled to a country currently being monitored by the [facility] within the last 14 days. The patient has NOT had contact with any known and/or suspected case of coronavirus. Ebola Screen: Patient negative for fever greater than or equal to 101.5 degrees Fahrenheit, and additional compatible Ebola Virus Disease symptoms. Initial Sepsis Screen: Does the patient meet any 2 criteria? No. Patient's initial sepsis screen is negative. Does the patient have a suspected source of infection? No. Patient's initial sepsis screen is negative. Risk Assessment: Do you want to hurt yourself or someone else? Patient reports no desire to harm self or others. 16:41 Method Of Arrival: Ambulatory aa5 16:41 Acuity: PRANAV 3 aa5 20:48 Onset of symptoms is unknown. ll1 Triage Assessment: 20:46 General: Appears uncomfortable. Respiratory: the patient has moderate shortness of ll1 breath. Respiratory: Reports shortness of breath at rest pain with cough since breaking ribs one month ago Airway is patent Trachea midline Respiratory effort is even, unlabored, Respiratory pattern is regular, symmetrical, Breath sounds are clear bilaterally. tenderness to left ribs Onset: The symptoms/episode began/occurred suddenly. Historical: - Allergies: 16:44 NKDA; aa5 - Home Meds: 16:44 aspirin 81 mg Oral TbEC 1 tab once daily [Active]; gabapentin 300 mg Oral cap 1 cap 3 aa5 times per day [Active]; Remeron 15 mg Oral tab [Active]; Seroquel Oral [Active]; - PMHx: 16:44 Alcoholism; Anxiety; Bipolar disorder; aa5 - PSHx: 16:44 left ankle surgery; aa5 - Immunization history:: Adult Immunizations unknown. - Social history:: Smoking status: Patient reports use of chewing tobacco. Screenin:12 Abuse screen: Denies threats or abuse. Nutritional screening: No deficits noted. tw2 Tuberculosis screening: No symptoms or risk factors identified. Fall Risk None identified. Assessment: 17:13 Respiratory: Airway is patent Respiratory effort is even, unlabored, Respiratory tw2 pattern is regular, symmetrical. 17:30 General: Appears in no apparent distress. uncomfortable, Behavior is cooperative, jl7 agitated, fussy. Pain: Complains of pain in left lateral posterior chest and left lateral anterior chest Pain currently is 10 out of 10 on a pain scale. Neuro: Level of Consciousness is awake, alert, obeys commands, Oriented to person, place, time, situation. Cardiovascular: Patient's skin is warm and dry. Rhythm is regular. Respiratory: Airway is patent Respiratory effort is even, unlabored, Respiratory pattern is regular, symmetrical, Breath sounds are clear bilaterally. Derm: Skin is pink, warm \\T\\ dry. 18:46 Reassessment: Patient appears in no apparent distress at this time. No changes from tw2 previously documented assessment. Patient and/or family updated on plan of care and expected duration. Pain level reassessed. Patient is alert, oriented x 3, equal unlabored respirations, skin warm/dry/pink. 19:04 Reassessment: No changes from previously documented assessment. Patient and/or family ll1 updated on plan of care and expected duration. Pain level reassessed. Patient is alert, oriented x 3, equal unlabored respirations, skin warm/dry/pink. Patient states symptoms have not improved. 20:00 Reassessment: No changes from previously documented assessment. Patient and/or family ll1 updated on plan of care and expected duration. Pain level reassessed. Patient is alert, oriented x 3, equal unlabored respirations, skin warm/dry/pink. Waiting on room number. Vital Signs: 16:41 Pulse 117; Resp 20 S; Temp 98.8(TE); Pulse Ox 97% on R/A; Weight 120.2 kg (R); Height 5 aa5 ft. 10 in. (177.80 cm) (R); Pain 10/10; 16:44 BP 114 / 81; aa5 18:28 BP 119 / 76; Pulse 85; Resp 17 S; Pulse Ox 98% on R/A; jl7 19:15 BP 115 / 74; Pulse 83; Resp 20; Pulse Ox 94% ; ll1 19:15 BP 120 / 80; Pulse 98; Resp 20; Pulse Ox 97% ; ll1 19:34 Weight 118.34 kg (M); ll1 21:29 BP 118 / 76; Pulse 95; Resp 20; Pulse Ox 97% on 2 lpm NC; ll1 22:53 BP 136 / 86; Pulse 90; Resp 20; Temp 98.0; Pulse Ox 95% on 2 lpm NC; Pain 7/10; ll1 19:34 Body Mass Index 37.43 (118.34 kg, 177.80 cm) ll1 ED Course: 16:39 Patient arrived in ED. ag5 16:41 Arm band placed on. aa5 16:44 Triage completed. aa5 16:48 Bed in low position. Call light in reach. 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 Pulse ox on. NIBP on. tw2 16:49 Tay Key MD is Attending Physician. amy 16:59 Ashley Lopez RN is Primary Nurse. tw2 17:30 Initial lab(s) drawn, by ar, sent to lab. Inserted saline lock: 20 gauge in left jl7 forearm, using aseptic technique. Blood collected. 17:44 EKG done, by ED staff, reviewed by Tay Key MD. jb1 19:00 Report given to EDISON Reddy. tw2 19:27 Enrique Farooq MD is Hospitalizing Provider. aym 21:04 Inserted Accessed peripheral vein via ultrasound, utilizing dynamic ultrasound rv technique MIDLINE 18G X 10CM POWERGLIDE Good blood return. Flushes easily. RIGHT UPPER ARM. 23:10 No provider procedures requiring assistance completed. Inserted Accessed continued upon [facility] admission. Missed attempt(s): Maintain EMS IV. Dressing intact. Site clean \\T\\ dry. Gauge \\T\\ site: 20 L FA. Patient admitted, IV remains in place. intact. Administered Medications: 19:11 Drug: Dilaudid 0.5 mg {Note: rass 1.} Route: IVP; Site: left forearm; 1 20:43 Follow up: Response: No adverse reaction; Pain is unchanged, physician notified ll1 19:40 Drug: Ativan 1 mg Route: IVP; Site: left forearm; ll1 20:41 Follow up: Response: No adverse reaction; Anxiety unchanged; RASS: Restless (+1) ll1 19:52 Drug: Potassium Effervescent Tablet 25 mEq Route: PO; ll1 20:42 Follow up: Response: No adverse reaction ll1 19:52 Drug: Heparin (DVT/PE Drip) 18 units/kg/hr - (HEParin 26230 units, D5W 500 ml) ll1 {Co-Signature: rv (Matt Funk RN).} Route: IV; Rate: per protocol; Site: left forearm; 20:42 Follow up: Response: No adverse reaction ll1 19:53 Drug: Heparin (DVT/PE- Bolus per protocol) - HEParin 80 units/kg {Co-Signature: rv ll1 (Matt Funk RN).} Route: IVP; Site: left forearm; 20:43 Follow up: Response: No adverse reaction ll1 20:10 Drug: Dilaudid 0.5 mg Route: IVP; Site: left forearm; ll1 20:44 Follow up: Response: No adverse reaction; Pain is unchanged, physician notified ll1 20:56 Drug: Banana Bag - (NS 0.9% 1000 ml, foLIC Acid 1 mg, Thiamine 100 mg, Multivitamin 1 ll1 amp) Route: IV; Rate: 125 ml/hr; Site: right antecubital; Outcome: 19:30 Decision to Hospitalize by Provider. amy 23:12 Admitted to Tele room Room 407, with oxygen, Report called to Rekha Faustin ll1 23:12 Condition: stable 23:12 Instructed on the need for admit. 23:28 Patient left the ED. ll1 Signatures: Arnaldo Santana jb1 Tay Key MD MD cha Calderon, Audri, RN RN aa5 Ashley Lopez RN RN tw2 Tino Leyva RN RN jl7 Matt Funk RN RN rv Aquiles uLong ag5 Maureen Soria RN RN ll1 Matt Funk RN rv Corrections: (The following items were deleted from the chart) 19:12 19:11 Dilaudid 0.5 mg IVP in left forearm ll1 ll1
--- NOTE | 2019-07-22 19:32 | EDPHYS ---
Physician Documentation [facility] Name: Frank Polo Age: 49 yrs Sex: Male : 1970 Arrival Date: 07/22/2019 Time: 16:39 Bed 2 Private MD: ROBBI Physician Tay Key HPI: 07/21 17:01 This 49 yrs old Male presents to ER via Ambulatory with complaints of amy Breathing Difficulty, Rib Pain. 17:01 The patient has shortness of breath at rest. Onset: The symptoms/episode began/occurred amy 2 day(s) ago. Duration: The symptoms are continuous, and are steadily getting worse. The patient's shortness of breath is aggravated by coughing, talking. Associated signs and symptoms: The patient has no apparent associated signs or symptoms. Severity of symptoms: At their worst the symptoms were moderate in the emergency department the symptoms are unchanged. The patient has experienced similar episodes in the past, several times. Historical: - Allergies: 16:44 NKDA; aa5 - Home Meds: 16:44 aspirin 81 mg Oral TbEC 1 tab once daily [Active]; gabapentin 300 mg Oral cap 1 cap 3 aa5 times per day [Active]; Remeron 15 mg Oral tab [Active]; Seroquel Oral [Active]; - PMHx: 16:44 Alcoholism; Anxiety; Bipolar disorder; aa5 - PSHx: 16:44 left ankle surgery; aa5 - Immunization history:: Adult Immunizations unknown. - Social history:: Smoking status: Patient reports use of chewing tobacco. ROS: 17:02 Constitutional: Negative for fever, chills, and weight loss, Eyes: Negative for injury, amy pain, redness, and discharge, ENT: Negative for injury, pain, and discharge, Neck: Negative for injury, pain, and swelling, Back: Negative for injury and pain, : Negative for injury, bleeding, discharge, and swelling, MS/Extremity: Negative for injury and deformity, Skin: Negative for injury, rash, and discoloration, Neuro: Negative for headache, weakness, numbness, tingling, and seizure, Psych: Negative for depression, anxiety, suicide ideation, homicidal ideation, and hallucinations, Allergy/Immunology: Negative for hives, rash, and allergies, Endocrine: Negative for neck swelling, polydipsia, polyuria, polyphagia, and marked weight changes. 17:02 Cardiovascular: Positive for chest pain. 17:02 Respiratory: Positive for cough, shortness of breath, at rest. 17:02 Abdomen/GI: Positive for abdominal pain, of the anterior aspect of left lateral abdomen, posterior aspect of left lateral abdomen and left upper quadrant. Exam: 17:02 Constitutional: This is a well developed, well nourished patient who is awake, alert, amy and in no acute distress. Head/Face: Normocephalic, atraumatic. Eyes: Pupils equal round and reactive to light, extra-ocular motions intact. Lids and lashes normal. Conjunctiva and sclera are non-icteric and not injected. Cornea within normal limits. Periorbital areas with no swelling, redness, or edema. ENT: Nares patent. No nasal discharge, no septal abnormalities noted. Tympanic membranes are normal and external auditory canals are clear. Oropharynx with no redness, swelling, or masses, exudates, or evidence of obstruction, uvula midline. Mucous membranes moist. Neck: Trachea midline, no thyromegaly or masses palpated, and no cervical lymphadenopathy. Supple, full range of motion without nuchal rigidity, or vertebral point tenderness. No Meningismus. Back: No spinal tenderness. No costovertebral tenderness. Full range of motion. Male : Normal genitalia with no discharge or lesions. Skin: Warm, dry with normal turgor. Normal color with no rashes, no lesions, and no evidence of cellulitis. 17:02 Chest/axilla: Inspection: normal, Palpation: tenderness, that is mild, that is moderate, of the anterior aspect of left upper chest, left lateral anterior chest, left lateral posterior chest and left breast. 17:02 Cardiovascular: Rate: tachycardic, Rhythm: regular, Pulses: Pulses are 4+ in bilateral radial, brachial, femoral, popliteal, posterior tibial and and dorsalis pedis arteries.. Heart sounds: normal, Edema: is not appreciated, JVD: is not appreciated. Vital Signs: 16:41 Pulse 117; Resp 20 S; Temp 98.8(TE); Pulse Ox 97% on R/A; Weight 120.2 kg (R); Height 5 aa5 ft. 10 in. (177.80 cm) (R); Pain 10/10; 16:44 BP 114 / 81; aa5 18:28 BP 119 / 76; Pulse 85; Resp 17 S; Pulse Ox 98% on R/A; jl7 19:15 BP 115 / 74; Pulse 83; Resp 20; Pulse Ox 94% ; ll1 19:15 BP 120 / 80; Pulse 98; Resp 20; Pulse Ox 97% ; ll1 19:34 Weight 118.34 kg (M); ll1 21:29 BP 118 / 76; Pulse 95; Resp 20; Pulse Ox 97% on 2 lpm NC; ll1 22:53 BP 136 / 86; Pulse 90; Resp 20; Temp 98.0; Pulse Ox 95% on 2 lpm NC; Pain 7/10; ll1 19:34 Body Mass Index 37.43 (118.34 kg, 177.80 cm) ll1 MDM: 16:49 Patient medically screened. [facility] 17:04 Data reviewed: vital signs, nurses notes, lab test result(s), EKG, radiologic studies, [facility] CT scan, plain films. 07/21 17:00 Order name: Basic Metabolic Panel [facility] 07/21 17:00 Order name: CBC with Diff [facility] 07/21 17:00 Order name: LFT's [facility] 07/21 17:00 Order name: Magnesium [facility] 07/21 17:00 Order name: NT PRO-BNP [facility] 07/21 17:00 Order name: PT-INR [facility] 07/21 17:00 Order name: Troponin (emerg Dept Use Only) [facility] 07/21 17:00 Order name: Lipase [facility] 07/21 17:00 Order name: ETOH Level [facility] 07/21 17:00 Order name: UDS [facility] 07/21 17:33 Order name: Urine Drug Screen; Complete Time: 18:03 EDOR 07/21 17:58 Order name: CBC with Automated Diff; Complete Time: 18:03 EDOR 07/21 18:12 Order name: Alcohol Serum/Plasma; Complete Time: 18:29 EDOR 07/21 18:15 Order name: Basic Metabolic Panel; Complete Time: 18:29 EDOR 07/21 17:00 Order name: XRAY Chest (1 view) [facility] 07/21 17:00 Order name: CT Traumagram (Head C Spine CAP W Con) [facility] 07/21 17:23 Order name: RAD; Complete Time: 18:03 EDOR 07/21 18:03 Order name: INCENTIVE SPIROMETRY [facility] 07/21 18:15 Order name: Liver (Hepatic) Function; Complete Time: 18:29 [facility] 07/21 18:15 Order name: Troponin (Emerg Dept Use Only); Complete Time: 18:29 [facility] 07/21 18:15 Order name: NT PRO-BNP; Complete Time: 18:29 [facility] 07/21 18:15 Order name: Magnesium; Complete Time: 18:29 [facility] 07/21 18:15 Order name: Lipase; Complete Time: 18:29 [facility] 07/21 19:13 Order name: CT; Complete Time: 19:15 [facility] 07/21 19:22 Order name: US Extremity Venous W Compression Jayden [facility] 07/21 20:23 Order name: US [facility] 07/21 21:12 Order name: Protime (+INR) [facility] 07/21 17:00 Order name: EKG; Complete Time: 17:02 [facility] 07/21 17:00 Order name: Cardiac monitoring; Complete Time: 17:45 [facility] 07/21 17:00 Order name: EKG - Nurse/Tech; Complete Time: 17:45 [facility] 07/21 17:00 Order name: IV Saline Lock; Complete Time: 17:45 [facility] 07/21 17:00 Order name: Labs collected and sent; Complete Time: 17:45 [facility] 07/21 17:00 Order name: O2 Per Protocol; Complete Time: 17:45 [facility] 07/21 17:00 Order name: O2 Sat Monitoring; Complete Time: 17:45 [facility] 07/21 17:22 Order name: Urine Dipstick-Ancillary (obtain specimen); Complete Time: 18:25 eb Administered Medications: 19:11 Drug: Dilaudid 0.5 mg {Note: rass 1.} Route: IVP; Site: left forearm; ll1 20:43 Follow up: Response: No adverse reaction; Pain is unchanged, physician notified ll1 19:40 Drug: Ativan 1 mg Route: IVP; Site: left forearm; ll1 20:41 Follow up: Response: No adverse reaction; Anxiety unchanged; RASS: Restless (+1) ll1 19:52 Drug: Potassium Effervescent Tablet 25 mEq Route: PO; ll1 20:42 Follow up: Response: No adverse reaction ll1 19:52 Drug: Heparin (DVT/PE Drip) 18 units/kg/hr - (HEParin 20138 units, D5W 500 ml) ll1 {Co-Signature: rv (Matt Funk RN).} Route: IV; Rate: per protocol; Site: left forearm; 20:42 Follow up: Response: No adverse reaction ll1 19:53 Drug: Heparin (DVT/PE- Bolus per protocol) - HEParin 80 units/kg {Co-Signature: rv ll1 (Matt Funk RN).} Route: IVP; Site: left forearm; 20:43 Follow up: Response: No adverse reaction ll1 20:10 Drug: Dilaudid 0.5 mg Route: IVP; Site: left forearm; ll1 20:44 Follow up: Response: No adverse reaction; Pain is unchanged, physician notified ll1 20:56 Drug: Banana Bag - (NS 0.9% 1000 ml, foLIC Acid 1 mg, Thiamine 100 mg, Multivitamin 1 ll1 amp) Route: IV; Rate: 125 ml/hr; Site: right antecubital; Disposition: 07/22/19 19:30 Hospitalization ordered by Enrique Farooq for Inpatient Admission. Preliminary diagnosis are Dyspnea, Pulmonary embolism - bilateral, Alcohol abuse, Alcohol abuse with intoxication, Hypokalemia. - Bed requested for Telemetry/MedSurg (Inpatient). - Status is Inpatient Admission. ll1 - Condition is Fair. - Problem is new. - Symptoms have improved. Signatures: Dispatcher [employer] EDTay Smiley MD MD cha Calderon, Audri, RN RN aa5 Adriana Jimenez RN RN Alanis Perez Lynsay, RN RN [facility] Matt perez Corrections: (The following items were deleted from the chart) 22:34 19:30 Hospitalization Ordered by Enrique Farooq MD for Inpatient Admission. Preliminary cg diagnosis is Dyspnea; Pulmonary embolism - bilateral; Alcohol abuse; Alcohol abuse with intoxication; Hypokalemia. Bed requested for Telemetry/MedSurg (Inpatient). Status is Inpatient Admission. Condition is Fair. Problem is new. Symptoms have improved. amy 23:28 22:34 07/22/2019 19:30 Hospitalization Ordered by Enrique Farooq MD for Inpatient ll1 Admission. Preliminary diagnosis is Dyspnea; Pulmonary embolism - bilateral; Alcohol abuse; Alcohol abuse with intoxication; Hypokalemia. Bed requested for Telemetry/MedSurg (Inpatient). Status is Inpatient Admission. Condition is Fair. Problem is new. Symptoms have improved. cg
[2019-07-22] MEDS ORDERED: HEPARIN 5000 UNIT/ML 1 ML VIAL ONE (19:38)
[2019-07-22] MEDS ORDERED: POTASSIUM 25 MEQ EFFERV TAB ONE (19:39)
[2019-07-22] MEDS ORDERED: HEPARIN/D5W 25,000 UNIT/500 ML BAG IV ONE (19:39)
[2019-07-22] MEDS ORDERED: NA CHLORIDE 0.9% 1,000 ML ONE (19:59)
[2019-07-22] MEDS ORDERED: MULTIVITAMINS 10 ML VIAL (INJ) IV ONE (19:59)
[2019-07-22] MEDS ORDERED: FOLIC ACID 5 MG/ML VIAL ONE (20:00)
--- NOTE | 2019-07-22 20:21 | RAD REPORT ---
EXAM DESCRIPTION: US - Extrem Venous W Compress Jayden - 07/22/2019 8:15 pm CLINICAL HISTORY: PAIN Bilateral leg edema and swelling. COMPARISON: CT LEFT ANKLE WO CONTRAST dated 09/26/2014 TECHNIQUE: Real-time sonographic interrogation of the left and right lower extremity deep venous sys tems was performed. FINDINGS: Normal compressibility, flow augmentation, phasic flow and spontaneous flow is identified in both the left and right lower extremity deep venous systems. IMPRESSION: No sonographic evidence of left or right lower extremity deep venous thrombosis.
[2019-07-22 21:07] LABS: Protime INR 1.21
[2019-07-22] MEDS ORDERED: ALBUTEROL 2.5 MG/3 ML NEB SOL NEB PRN (22:00)
[2019-07-22] MEDS ORDERED: D5.45NS W/KCL 20MEQ 1,000 ML IV SCH (22:00)
[2019-07-22] MEDS ORDERED: ACETAMINOPHEN 500 MG TAB PO PRN (22:00)
[2019-07-22] MEDS ORDERED: ONDANSETRON 4 MG/2 ML VIAL IV PRN (22:00)
[2019-07-22] MEDS ORDERED: HYDRALAZINE HCL 20 MG/ML VIAL IV PRN (22:02)
[2019-07-23] MEDS: APIXABAN 5 MG TABLET PO SCH ×2 (00:25→09:03)
[2019-07-23] MEDS: LORAZEPAM 1 MG TABLET PO PRN ×2 (00:26→09:00)
[2019-07-23] MEDS: MORPHINE 2 MG/ML SYR IV PRN ×2 (00:26→04:40)
--- NOTE | 2019-07-23 01:21 | HP ---
Date of Admission: 07/22/2019 Present Complaint: Left rib margin pain. History Of Present Illness: Mr. Polo is a 49-year-old male with history of bipolar disor helio, chronic alcohol abuse, who sustained a fall about 3 weeks ago for which he was diagnosed with ri ght rib margin fractures. The patient states since then he has been less ambulatory, although stable to move around the house. He has been having persistent pain on that rib margin, which is worse wit h deep breathing. He denies any headache or fever. He admits to some exertional shortness of breath . He denies any recent travel. He presents to the ED today because of persistent pain symptoms. He was noted with bilateral PE and has been admitted for further care. He denies any anterior chest wa ll pain now. Past Medical History: Significant for bipolar disorder. Past Surgical History: History of left ankle surgery 5 years ago. Allergies: NO KNOWN DRUG ALLERGIES. Home Medications: Include Remeron and gabapentin. Social History: Patient admit to tobacco use. He previously smoked, but he now chews tobacco. He a dmit to daily alcohol use. Drinks about 2-3 six-packs of beer daily. Last intake was 8 hours before presentation. He denies any illicit drug use. Family History: No history of DVT or CVA. Review of Systems: All systems reviewed x14 were negative except as mentioned above. Physical Examination: Vital Signs: Blood pressure of 120/80, pulse of 117, respiratory rate of 20, O2 saturation 97 on fly m air, weight 120 kg. General: Obese, middle-aged male, in mild pain distress, but conversant. HEENT: Head is atraumatic, normocephalic. Pupils equal and reactive to light. Neck: No JVD. No carotid bruit. Respiratory: Mild left base wheeze elicited, tenderness over the 7-11 lateral rib margin wall. Tend erness does not extend to the anterior chest wall. Cardiovascular: S1, S2. Mildly tachycardic. GI: Abdomen full, soft, nontender. Bowel sounds positive. No suprapubic fullness. No CVA tenderne ss. Extremities: Trace pedal edema bilaterally, but no calf tenderness. Old scar over left bilateral ma lleolar area noted. Neuro: Patient is alert, oriented. Cranial nerves 2 through 12 grossly intact. The patient does no t demonstrate any tremors of the outstretched hands. Laboratory Data: WBC 6.3, hemoglobin 15, platelet 251. INR 1.2, PT 14. T-bilirubin 0.5, AST 127, A LT 81, alkaline phosphatase 164. Troponin less than 0.02. ProBNP of 12. Albumin 4.1, lipase 397, p otassium 3.4, chloride 99, creatinine 0.8. Sodium 136. Blood alcohol level of 369. CT of the head, neck, and spine negative for any acute process. CT of the abdomen shows small bilateral fat-contain ing inguinal hernia. Lungs CT shows small emboli in the left segmental and subsegmental branches. S ignificant filling defect in the right knee as well as right lower lobe pulmonary arterial tree mary lou tible with pulmonary emboli. Healing left anterior lateral rib fractures. Impression: 1.Bilateral pulmonary embolus. 2.Left rib fractures, healing. 3.Chronic alcoholism. 4.History of bipolar disorder. Plan: We will admit patient to observation. We will start with gentle IV fluids. We will replete p otassium. We will do pain medication with p.r.n. morphine for now, but the patient may be transition ed to NSAID at discharge given pulmonary embolism. We will start patient on Eliquis. Need for decre ase alcohol intake and minimizing recurrent falls as well as risk of bleeding with anticoagulation styles s been discussed with patient and he expressed understanding. Unclear etiology of bilateral PE. Low er extremity ultrasound shows no evidence of DVT. The patient may need workup including factor 5 Lei den as well as prothrombin level after anticoagulation course completed. The patient expressed under standing. We admit to observation for now. Start regular diet for now. We will do Ativan as needed for alcohol withdrawal symptoms. Advanced directives, patient is full code. Total time spent in review of record, discussion with patient and evaluation greater than 60 minutes. EO/MODL Voice ID: [id number]
[2019-07-23] MEDS: IPRATROPIUM BROM 0.5MG/2.5ML NEB SCH ×2 (02:35→08:10)
[2019-07-23 03:29] VITALS: O2SAT 98; BMI 37.4
[2019-07-23 06:16] LABS: Absolute Lymphocytes (CBC) 1.3 K/uL (0.7-4.9); Basophils % 0.8 % (0-1.3); Hematocrit 38.1 % (39.6-49.0); MPV 8.4 fL (7.6-11.3)
[2019-07-23 06:28] LABS: ALT/SGPT 68 U/L (12-78); AST/SGOT 100 U/L (15-37); Albumin 3.4 g/dL (3.4-5.0); Alkaline Phosphatase 124 U/L (45-117); BUN Blood Urea Nitrogen 5 mg/dL (7-18); Bicarbonate 26 mmol/L (21-32); Bilirubin Total 0.5 mg/dL (0.2-1.0); Glucose Level 131 mg/dL (74-106); Potassium 3.2 mmol/L (3.5-5.1); Protein, Total 7.1 g/dL (6.4-8.2); Sodium Level 137 mmol/L (136-145); Troponin I < 0.02 ng/mL (0.0-0.045)
--- NOTE | 2019-07-23 07:37 | EKG ---
Test Date: 2019-07-22 Test Time: 17:39:06 Shank Burnisher: BUDDY MEASUREMENT RESULTS: Intervals: Rate: 103 FL: 150 QRSD: 90 QT: 358 QTc: 468 Comfort: P: 60 FL: 150 QRS: 2 T: 32 INTERPRETIVE STATEMENTS: Sinus tachycardia Otherwise normal ECG Compared to ECG 07/18/2019 20:20:48 Sinus rhythm no longer present Electronically Signed On 07-23-19 07:36:43 EGG SORTER by Antonino Alexander
[2019-07-23] MEDS ORDERED: FOLIC ACID 1 MG TABLET PO SCH (09:00)
[2019-07-23] MEDS ORDERED: NICOTINE 21 MG/PAT TD SCH (09:00)
[2019-07-23] MEDS ORDERED: THIAMINE HCL 100 MG TABLET PO SCH (09:00)
[2019-07-23] MEDS ORDERED: LIDOCAINE 4% PATCH TOP SCH (09:00)
[2019-07-23] MEDS ORDERED: GABAPENTIN 300 MG CAP PO SCH ×2 (09:00→14:00)
[2019-07-23] MEDS ORDERED: FAMOTIDINE 20 MG TAB PO SCH (09:00)
[2019-07-23] MEDS ORDERED: MORPHINE 2 MG/ML SYR IV PRN (10:06)
[2019-07-23 13:33] VITALS: BP 130/70; TEMP 98
[2019-07-23] MEDS ORDERED: MIRTAZAPINE 15 MG TAB PO SCH (21:00)
--- NOTE | 2019-07-23 23:28 | DS ---
Date of Discharge: 07/23/2019 Consultants: Dr. Navarro with Pulmonology. Discharge Diagnoses: 1.Acute pulmonary embolism, bilateral. 2.Left rib fractures, healing. 3.Chronic alcoholism. 4.History of bipolar disorder. Hospital Course: Patient is a 49-year-old male with history of bipolar disorder, chronic alcohol use , who fell 3 weeks ago, comes in with left rib pain. Patient had a scan done and showed bilateral PE . Patient is admitted for further observation. He has small emboli in the left segmental and subseg mental branches and the CT scan showed left healing, anterior lateral rib fractures. Patient did hav e a blood alcohol level of 369. He was admitted for further workup. Patient was started on Eliquis. He was counseled extensively regarding quitting alcohol. He understands that he is to be on antico agulation and he has bleeding risks; however, his benefits outweigh the risk at this time due to PE. Patient was worked up for hypercoagulable state, which workup is actually pending at this time as it is send out. He did not have any hypoxia or hypotension. Case was discussed with optical glass sawyer on- call, Dr. Navarro. He recommended outpatient followup in his office and to discharge the patient on anticoagulation. Patient was stable. His Eliquis was called into the pharmacy. He will have a 9 d ollar co-pay. Patient's electrolytes were corrected. Patient was counseled regarding establishing c are with the primary care physician. He was then discharged home in a stable condition. Activity: As tolerated. Medications: As per medication reconciliation list. Followup: Follow up with primary care physician in 1 week. Follow up with optical glass sawyer, Dr. Dary ely in 2 weeks. Return to ER for worsening condition and follow up with optical glass sawyer regarding hyper coagulable workup. Diet: Heart healthy. Physical Examination: General: Awake, alert, and oriented, no acute distress, obese male. CV: S1, S2. Respiratory: Moving air well bilaterally. Abdomen: Abdomen is soft, nontender, nondistended. Positive bowel sounds. Extremities: No clubbing, cyanosis, edema. Neurologic: Nonfocal. Total time spent discharging patient was 35 minutes. SA/MODL Voice ID: [id number] Report ID: [id number]
[2019-07-26 12:56] LABS: Protein C Antigen 92 % (70-140)
[2019-08-01 08:35] LABS: Prothrombin Gene Analysis Test NOT DETECTED
== END 2019-07-23 12:30 | disposition home or self-care (01) ==
LOC: ER 16:36 → ERHOLD 22:01 → 4TH 23:17
PROVIDERS: ADMIT Internal Medicine; ATTEND Family Medicine
DX: I26.99 Other pulmonary embolism without acute cor pulmonale (principal); S22.42XD Multiple fractures of ribs, left side, subsequent encounter for fracture with routine healing; W19.XXXD Unspecified fall, subsequent encounter; F10.229 Alcohol dependence with intoxication, unspecified; E87.6 Hypokalemia; R00.0 Tachycardia, unspecified; K76.0 Fatty (change of) liver, not elsewhere classified; K40.20 Bilateral inguinal hernia, without obstruction or gangrene, not specified as recurrent; K44.9 Diaphragmatic hernia without obstruction or gangrene; F31.9 Bipolar disorder, unspecified; F41.9 Anxiety disorder, unspecified; F17.220 Nicotine dependence, chewing tobacco, uncomplicated; Z79.82 Long term (current) use of aspirin; Z79.899 Other long term (current) drug therapy
CPT/HCPCS: 93005; 85025 ×2; 80048; 36415 ×2; 80320; 83735; 85610; 80076; 80307 ×8; 84484 ×2; 83690; 80053; 81241; 81240; 83880; 85302; 70450; 72125; 71260; 74177; 71045; 93970; 94640; 96375; 96374; 99285; Q9967; J3411 ×2; J1644; J2270 ×2; J1170 ×2; J7030 ×2; J2405 ×3; G0378 ×2; 85305; 85306

== ENCOUNTER 2019-08-12 17:39 | Emergency (ER) | payer OTHER ==
--- OUTSIDE RECORDS SUMMARY | 2019-08-12 17:41 | XMS REPORT ---
:1970 Author Organization [facility] Address [address] [place] [address] Dr. Valera [address] [place] [id number] Care Team Providers Name Role Phone UNKNOWN, REFFERING Primary Care Provider Unavailable Problems This patient has no known problems. Allergies, Adverse Reactions, Alerts This patient has no known allergies or adverse reactions. Medications This patient has no known medications. Encounters Start End Encounter Admission Attending Care Care Encounter Date/Time Date/Time Type Type Clinicians Facility Department ID 2016-06-11 Inpatient C [facility] [id number] 15:30:00
--- OUTSIDE RECORDS SUMMARY | 2019-08-12 17:44 | XMS REPORT | Summary of Care ---
:1970 Author Organization [facility] Address [address] [place] [id number] Care Team Providers Name Role Phone Chago Owen MD Primary Care Provider Reason for Visit Reason Comments Talk To Nurse Encounter Details Date Type Department Care Team Description 07/27/2019 Telephone [facility] Cardiology- Melchor Ledesma MD Talk To Nurse [place] [address] [facility] [address] [facility], [address] [place] [address] [place] [address] Allergies No Known Allergiesdocumented as of this encounter (statuses as of 07/27/2019) Medications Medication Sig Dispensed Refills Start Date End Date Status mirtazapine (REMERON) Take 30 mg by 0 Active 30 mg tablet mouth at bedtime. gabapentin (NEURONTIN) Take 600 mg by 0 Active 300 mg capsule mouth 3 (three) times daily. aspirin 81 mg chewable Take 1 tablet by 90 tablet 3 05/18/2019 Active tabletIndications: mouth daily. Type 2 WA (myocardial infarction) atorvastatin 40 mg Take 1 tablet by 30 tablet 2 05/17/2019 Active tabletIndications: mouth at Type 2 WA (myocardial bedtime. infarction) nitroglycerin 0.[address] 1 tablet 1 Bottle 0 05/17/2019 Active sublingual under the tongue tabletIndications: every 5 (five) Type 2 WA (myocardial minutes as infarction) needed for Chest pain. metoprolol tartrate 50 Take 1 tablet by 60 tablet 3 05/17/2019 Active mg tabletIndications: mouth 2 (two) Type 2 WA (myocardial times daily. infarction), Secondary hypertension foLIC [...] as of this encounter (statuses as of 07/27/2019) Active Problems Problem Noted Date Elevated blood pressure reading 07/03/2019 Tachycardia 07/03/2019 Nonobstructive atherosclerosis of coronary artery 07/03/2019 Essential hypertension 07/03/2019 Atypical chest pain 07/03/2019 Alcohol withdrawal 07/02/2019 NSTEMI (non-ST elevated myocardial infarction) 05/17/2019 Obesity (BMI 30-39.9) 05/17/2019 Type 2 WA (myocardial infarction) 05/17/2019 Secondary hypertension 05/17/2019 Depression 07/04/2012 Acute respiratory failure 07/04/2012 Tobacco abuse disorder 07/04/2012 Alcohol abuse 07/04/2012 Heroin use 07/04/2012 Anxiety disorder 07/04/2012 Suicidal ideation 09/24/2011 documented as of this encounter (statuses as of 07/27/2019) Social History Tobacco Use Types Packs/Day Years [...] Treatment Date Type Specialty Care Team Description 08/17/2019 Office Visit Cardiology Melchor Ledesma MD [address] [place] [address] [address] [place] [address] [phone] Health Maintenance Due Date Last Done Comments [...] Type Group MEDICARE MEDICARE PART xxxxxxxxxxx 2017-Luigi [phone] Medicare A & B t 2 [id number] RUTHANN PORTER [id number] documented as of this encounter
[2019-08-12] MEDS ORDERED: NA CHLORIDE 0.9% 1,000 ML ONE (18:26)
[2019-08-12] MEDS ORDERED: MECLIZINE HCL 12.5 MG TAB ONE (18:26)
[2019-08-12 18:29] LABS: Absolute Lymphocytes (CBC) 2.3 K/uL (0.7-4.9); Basophils % 0.2 % (0-1.3); Hematocrit 41.6 % (39.6-49.0); Lymphocytes % 23.5 % (15.3-44.8); MPV 8.3 fL (7.6-11.3); Protime INR 1.09; RBC Red Blood Cell Count 5.13 M/uL (4.33-5.43)
[2019-08-12 18:45] LABS: ALT/SGPT 34 U/L (12-78); AST/SGOT 24 U/L (15-37); Albumin 3.5 g/dL (3.4-5.0); Alkaline Phosphatase 81 U/L (45-117); BUN Blood Urea Nitrogen 15 mg/dL (7-18); Bicarbonate 27 mmol/L (21-32); Bilirubin Direct < 0.1 mg/dL (0-0.2); Bilirubin Total 0.1 mg/dL (0.2-1.0); Glucose Level 99 mg/dL (74-106); Magnesium 2.1 mg/dL (1.8-2.4); NT PRO-BNP 69 pg/mL (<125); Potassium 3.7 mmol/L (3.5-5.1); Protein, Total 7.6 g/dL (6.4-8.2); Sodium Level 140 mmol/L (136-145); Troponin (Emerg Dept Use Only) < 0.02 ng/mL (0.0-0.045)
--- NOTE | 2019-08-12 18:50 | RAD REPORT ---
EXAM DESCRIPTION: CT - Head Brain Wo Cont - 08/12/2019 6:35 pm CLINICAL HISTORY: Dizziness COMPARISON: None. TECHNIQUE: Computed axial tomography of the head was obtained. IV contrast was not requested. All CT scans are performed using dose optimization technique as appropriate and may include automated exposure control or mA/KV adjustment according to patient size. FINDINGS: An intracranial bleed is not seen . The ventricles are normal in caliber. No extra-axial fluid collection is noted. Fluid within the sinuses/ mastoids is not seen. IMPRESSION: No acute intracranial abnormality is seen. If patient's symptoms persist MRI of the bra in would be recommended.
[2019-08-12] MEDS ORDERED: DIAZEPAM 2 MG TABLET ONE (19:16)
--- NOTE | 2019-08-12 19:40 | ER ---
Nurse's Notes [facility] Name: Frank Polo Age: 49 yrs Sex: Male : 1970 Arrival Date: 08/12/2019 Time: 17:43 Bed 6 Private MD: Diagnosis: Dizziness and giddiness Presentation: 08/11 17:50 Chief complaint: Patient states: Dizziness that began 20-30 minutes ago. Pt has no ss other complaints. Coronavirus screen: Patient denies fever greater than 100.4F, cough, shortness of breath, or difficulty breathing. Proceed with normal triage process. Ebola Screen: Patient denies exposure to infectious person. Patient denies travel to an Ebola-affected area in the 21 days before illness onset. Initial Sepsis Screen: Does the patient meet any 2 criteria? No. Patient's initial sepsis screen is negative. Does the patient have a suspected source of infection? No. Patient's initial sepsis screen is negative. Risk Assessment: Do you want to hurt yourself or someone else? Patient reports no desire to harm self or others. 17:50 Method Of Arrival: Ambulatory ss 17:50 Acuity: PRANAV 3 ss 19:52 Onset of symptoms is unknown. tl2 Historical: - Allergies: 17:51 NKDA; ss - Home Meds: 17:51 aspirin 81 mg Oral TbEC 1 tab once daily [Active]; gabapentin 300 mg Oral cap 1 cap 3 ss times per day [Active]; Remeron 15 mg Oral tab [Active]; Seroquel Oral [Active]; Eliquis oral oral [Active]; - PMHx: 17:51 Alcoholism; Anxiety; Bipolar disorder; PE; ss - PSHx: 17:51 left ankle surgery; ss - Immunization history:: Adult Immunizations up to date. - Social history:: Smoking status: Patient denies any tobacco usage or history of. Screenin:00 Abuse screen: Denies threats or abuse. Nutritional screening: No deficits noted. aa5 Tuberculosis screening: No symptoms or risk factors identified. Fall Risk None identified. Assessment: 18:00 General: Appears uncomfortable, Behavior is cooperative, anxious. Pain: Denies pain. aa5 Neuro: Level of Consciousness is awake, alert, obeys commands, Oriented to person, place, time, situation, Office Administration Instructor are equal bilaterally Moves all extremities. Speech is normal, Facial symmetry appears normal, Pupils are PERRLA, Reports dizziness. Cardiovascular: Heart tones S1 S2 present Rhythm is regular. Respiratory: Airway is patent Respiratory effort is even, unlabored, Respiratory pattern is regular, symmetrical, Breath sounds are clear bilaterally. GI: No signs and/or symptoms were reported involving the gastrointestinal system. : No signs and/or symptoms were reported regarding the genitourinary system. EENT: No signs and/or symptoms were reported regarding the EENT system. Derm: Skin is pink, warm \T\ dry. Musculoskeletal: Range of motion: intact in all extremities. 18:48 Reassessment: Patient is alert, oriented x 3, equal unlabored respirations, skin aa5 warm/dry/pink. Patient states symptoms have not improved. Vital Signs: 17:50 BP 130 / 72; Pulse 93; Resp 16; Pulse Ox 98% on R/A; Weight 117.93 kg; Height 5 ft. 10 ss in. (177.80 cm); Pain 0/10; 18:02 BP 106 / 70 Supine; Pulse 92; Resp 20 S; aa5 18:04 BP 126 / 76 Sitting; Pulse 91; aa5 18:06 BP 134 / 77 Standing; Pulse 93; aa5 18:06 Temp 98.6(O); aa5 18:47 BP 144 / 83; Pulse 100; Resp 20 S; Pulse Ox 96% on R/A; Pain 0/10; aa5 19:18 BP 145 / 90; Pulse 100; Resp 20; Pain 3/10; lw1 17:50 Body Mass Index 37.31 (117.93 kg, 177.80 cm) ss ED Course: 17:43 Patient arrived in ED. am2 17:45 Edelmira Dumont, RN is Primary Nurse. aa5 17:51 Triage completed. ss 17:51 Arm band placed on right wrist. ss 17:54 [facility] Fernanda Bloom [facility]C [facility] kb 17:54 Rosales Enrique MD is Attending Physician. kb 18:11 Patient has correct armband on for positive identification. Placed in gown. Bed in low mh5 position. Call light in reach. Side rails up X2. ekg monitor on. Pulse ox on. NIBP on. 18:13 EKG done, by ED staff, reviewed by Maria Fernanda DUNCAN. mh5 18:15 Initial lab(s) drawn, by tx, sent to lab. Inserted saline lock: 20 gauge in left aa5 forearm, using aseptic technique. Blood collected. 18:34 CT Head Brain wo Cont In Process Unspecified. EDMS 19:46 No provider procedures requiring assistance completed. IV discontinued, intact, tl2 bleeding controlled, No redness/swelling at site. Pressure dressing applied. Administered Medications: 18:24 Drug: Antivert 50 mg Route: PO; aa5 20:09 Follow up: Response: No adverse reaction tl2 18:24 Drug: NS 0.9% 1000 ml Route: IV; Rate: 1000 ml; Site: left forearm; aa5 20:10 Follow up: IV Status: Completed infusion; IV Intake: 1000ml tl2 19:12 Drug: Valium 2 mg Route: PO; lw1 20:09 Follow up: Response: No adverse reaction tl2 Intake: 20:10 IV: 1000ml; Total: 1000ml. tl2 Outcome: 19:39 Discharge ordered by . kb 19:48 Discharged to home ambulatory. tl2 19:48 Condition: stable 19:48 Discharge instructions given to patient, Instructed on discharge instructions, follow up and referral plans. medication usage, Demonstrated understanding of instructions, follow-up care, medications, Prescriptions given X 1. 20:09 Patient left the ED. tl2 Signatures: Dispatcher [employer] EDDE Maria Fernanda Bloom, MASTER BLACK BELT-Son MASTER BLACK BELT-Edelmira Wright, RN EDISON 5 Amee Nix RN RN Margi Rangel RN RN 2 Aaliyah Aviles [facility] Jojo Koo Lilo Carcamo RN RN lw1
--- NOTE | 2019-08-12 19:40 | EDPHYS ---
Physician Documentation [facility] Name: Frank Polo Age: 49 yrs Sex: Male : 1970 Arrival Date: 08/12/2019 Time: 17:43 Bed 6 Private MD: ED Physician Rosales Enrique HPI: 08/11 20:03 This 49 yrs old Male presents to ER via Ambulatory with complaints of kb Dizziness. 20:03 The patient presents with dizziness. Onset: The symptoms/episode began/occurred 30 kb minute(s) ago. Context: occurred at home, just prior to the episode the patient experienced no apparent symptoms. Modifying factors: The symptoms are alleviated by nothing, the symptoms are aggravated by movement of head, changing position. Associated signs and symptoms: The patient has no apparent associated signs or symptoms. Severity of symptoms: At their worst the symptoms were moderate in the emergency department the symptoms are unchanged. Patient's baseline: Neuro: alert and fully oriented, Motor: no deficits, Ambulation: walks without assistance, Speech: normal. The patient has not experienced similar symptoms in the past. The patient has not recently seen a physician. pt ambulates with steady gait. . Historical: - Allergies: 17:51 NKDA; ss - Home Meds: 17:51 aspirin 81 mg Oral TbEC 1 tab once daily [Active]; gabapentin 300 mg Oral cap 1 cap 3 ss times per day [Active]; Remeron 15 mg Oral tab [Active]; Seroquel Oral [Active]; Eliquis oral oral [Active]; - PMHx: 17:51 Alcoholism; Anxiety; Bipolar disorder; PE; ss - PSHx: 17:51 left ankle surgery; ss - Immunization history:: Adult Immunizations up to date. - Social history:: Smoking status: Patient denies any tobacco usage or history of. ROS: 20:07 Constitutional: Negative for fever, chills, and weight loss, ENT: Negative for injury, kb pain, and discharge, Neck: Negative for injury, pain, and swelling, Cardiovascular: Negative for chest pain, palpitations, and edema, Respiratory: Negative for shortness of breath, cough, wheezing, and pleuritic chest pain, Abdomen/GI: Negative for abdominal pain, nausea, vomiting, diarrhea, and constipation, Back: Negative for injury and pain, MS/Extremity: Negative for injury and deformity, Skin: Negative for injury, rash, and discoloration. 20:07 Neuro: Positive for dizziness. Exam: 18:03 Constitutional: This is a well developed, well nourished patient who is awake, alert, kb and in no acute distress. Head/Face: Normocephalic, atraumatic. Neck: Trachea midline, no thyromegaly or masses palpated, and no cervical lymphadenopathy. Supple, full range of motion without nuchal rigidity, or vertebral point tenderness. No Meningismus. Chest/axilla: Normal chest wall appearance and motion. Nontender with no deformity. No lesions are appreciated. Cardiovascular: Regular rate and rhythm with a normal S1 and S2. No gallops, murmurs, or rubs. Normal PMI, no JVD. No pulse deficits. Respiratory: Lungs have equal breath sounds bilaterally, clear to auscultation and percussion. No rales, rhonchi or wheezes noted. No increased work of breathing, no retractions or nasal flaring. Abdomen/GI: Soft, non-tender, with normal bowel sounds. No distension or tympany. No guarding or rebound. No evidence of tenderness throughout. Skin: Warm, dry with normal turgor. Normal color with no rashes, no lesions, and no evidence of cellulitis. MS/ Extremity: Pulses equal, no cyanosis. Neurovascular intact. Full, normal range of motion. Neuro: Awake and alert, GCS 15, oriented to person, place, time, and situation. Cranial nerves II-XII grossly intact. Motor strength 5/5 in all extremities. Sensory grossly intact. Cerebellar exam normal. Normal gait. 18:03 ECG was reviewed by the Attending Physician. Vital Signs: 17:50 BP 130 / 72; Pulse 93; Resp 16; Pulse Ox 98% on R/A; Weight 117.93 kg; Height 5 ft. 10 ss in. (177.80 cm); Pain 0/10; 18:02 BP 106 / 70 Supine; Pulse 92; Resp 20 S; aa5 18:04 BP 126 / 76 Sitting; Pulse 91; aa5 18:06 BP 134 / 77 Standing; Pulse 93; aa5 18:06 Temp 98.6(O); aa5 18:47 BP 144 / 83; Pulse 100; Resp 20 S; Pulse Ox 96% on R/A; Pain 0/10; aa5 19:18 BP 145 / 90; Pulse 100; Resp 20; Pain 3/10; lw1 17:50 Body Mass Index 37.31 (117.93 kg, 177.80 cm) ss MDM: 17:54 Patient medically screened. kb 18:02 Data reviewed: vital signs, nurses notes. Data interpreted: Pulse oximetry: on room air kb is 98 %. Interpretation: normal. 19:33 Counseling: I had a detailed discussion with the patient and/or guardian regarding: the kb historical points, exam findings, and any diagnostic results supporting the discharge/admit diagnosis, lab results, radiology results, the need for outpatient follow up, a family practitioner, to return to the emergency department if symptoms worsen or persist or if there are any questions or concerns that arise at home. 08/11 18:00 Order name: Basic Metabolic Panel; Complete Time: 18:55 kb 08/11 18:00 Order name: CBC with Diff; Complete Time: 18:43 kb 08/11 18:00 Order name: LFT's; Complete Time: 18:55 kb 08/11 18:00 Order name: Magnesium; Complete Time: 18:55 kb 08/11 18:00 Order name: NT PRO-BNP; Complete Time: 18:55 kb 08/11 18:00 Order name: PT-INR; Complete Time: 18:43 kb 08/11 18:00 Order name: Troponin (emerg Dept Use Only); Complete Time: 18:55 kb 08/11 18:00 Order name: EKG; Complete Time: 18:02 kb 08/11 18:00 Order name: Cardiac monitoring; Complete Time: 18:12 kb 08/11 18:00 Order name: EKG - Nurse/Tech; Complete Time: 18:12 kb 08/11 18:00 Order name: CT Head Brain wo Cont; Complete Time: 18:55 kb 08/11 18:00 Order name: IV Saline Lock; Complete Time: 18:17 kb 08/11 18:00 Order name: Labs collected and sent; Complete Time: 18:17 kb 08/11 18:00 Order name: O2 Per Protocol; Complete Time: 18:17 kb 08/11 18:00 Order name: O2 Sat Monitoring; Complete Time: 18:17 kb 08/11 18:00 Order name: Orthostatics; Complete Time: 18:17 kb EC:03 Rate is 91 beats/min. Rhythm is regular. QRS [place] is Normal. WA interval is normal at kb 91 msec. QRS interval is normal at 84 msec. QT interval is normal at 354 msec. Administered Medications: 18:24 Drug: Antivert 50 mg Route: PO; aa5 20:09 Follow up: Response: No adverse reaction tl2 18:24 Drug: NS 0.9% 1000 ml Route: IV; Rate: 1000 ml; Site: left forearm; aa5 20:10 Follow up: IV Status: Completed infusion; IV Intake: 1000ml tl2 19:12 Drug: Valium 2 mg Route: PO; lw1 20:09 Follow up: Response: No adverse reaction tl2 Disposition: 08/12/19 19:39 Discharged to Home. Impression: Dizziness and giddiness. - Condition is Stable. - Discharge Instructions: Vertigo, [id number], Dizziness, [id number]. - Prescriptions for Meclizine 25 mg Oral Tablet - take 1 tablet by ORAL route every 8 hours As needed; 30 tablet. - Medication Reconciliation Form, Thank You Letter, Antibiotic Education, Prescription Opioid Use form. - Follow up: Emergency Department; When: As needed; Reason: Worsening of condition. Follow up: Private Physician; When: 2 - 3 days; Reason: Recheck today's complaints, Continuance of care, Re-evaluation by your physician. Addendum: 08/14/2019 13:59 Co-signature as Attending Physician, Rosales Enrique MD I agree with the assessment and k dr plan of care. Signatures: Dispatcher [employer] EDMD Maria Fernanda Bloom, PRIVATE EQUITY ASSOCIATE-C PRIVATE EQUITY ASSOCIATE-Ckb Rosales Enrique MD MD [facility] Edelmira Dumont, EDISON RN aa5 Amee Nix RN RN ss Margi Ranegl, RN RN tl2 Lilo Heredia RN RN lw1 Corrections: (The following items were deleted from the chart) 08/11 20:09 19:39 08/12/2019 19:39 Discharged to Home. Impression: Dizziness and giddiness. tl2 Condition is Stable. Forms are Medication Reconciliation Form, Thank You Letter, Antibiotic Education, Prescription Opioid Use. Follow up: Emergency Department; When: As needed; Reason: Worsening of condition. Follow up: Private Physician; When: 2 - 3 days; Reason: Recheck today's complaints, Continuance of care, Re-evaluation by your physician. kb
[2019-08-12 20:38] VITALS: TEMP 98.6
[2019-08-12 20:49] VITALS: O2SAT 96
[2019-08-12 20:50] VITALS: BP 145/90
--- NOTE | 2019-08-13 08:50 | EKG ---
Test Date: 2019-08-12 Test Time: 17:56:13 Streetcar Dispatcher: ZURDO MEASUREMENT RESULTS: Intervals: Rate: 91 DE: 156 QRSD: 84 QT: 354 QTc: 435 [place]: P: 13 DE: 156 QRS: 24 T: 25 INTERPRETIVE STATEMENTS: Normal sinus rhythm Cannot rule out Anterior infarct, age undetermined Abnormal ECG Compared to ECG 07/22/2019 17:39:06 Myocardial infarct finding now present Sinus tachycardia no longer present Electronically Signed On 08-13-19 08:49:25 CDT by Gunnar Oliveira
== END 2019-08-12 20:09 | disposition home or self-care (01) ==
LOC: ER 17:39
DX: R42 Dizziness and giddiness (principal); F31.9 Bipolar disorder, unspecified; F10.20 Alcohol dependence, uncomplicated; Z79.82 Long term (current) use of aspirin
CPT/HCPCS: 96361; 93005; 85025; 80048; 36415; 83735; 85610; 80076; 84484; 83880; 70450; 96360; 99285; J7030; J8597

== ENCOUNTER 2019-10-23 10:21 | Emergency (ER) | payer OTHER ==
--- OUTSIDE RECORDS SUMMARY | 2019-10-23 10:23 | XMS REPORT | Clinical Summary ---
:1970 Author Organization [facility] Address [address] [place] [address] Care Team Providers Name Role Phone Asked, No Pcp Primary Care Provider Unavailable Allergies No Known Allergies Medications Not on file Active Problems Problem Noted Date Alcohol withdrawal 10/19/2015 Bipolar affective disorder, depressed, severe, with ps ychotic behavior 10/18/2015 Social History Tobacco Use Types Packs/Day Years Used Date Current Every Day Smoker 15 Sta rted: 10/17/1984 Smokeless Tobacco: Current User Snuff Tobacco Cessation: Ready to Quit: No; Co unseling Given: Yes Alcohol Use Drinks/Week oz/Week Comments Yes 80 Cans of beer 80.0 case a day some days Sex Assigned at Date Recorded Not on file Job Start Date Occupation Industry Not on file Not on file Not on file Travel History Travel Start Travel End No recent travel history available. 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
--- OUTSIDE RECORDS SUMMARY | 2019-10-23 10:23 | XMS REPORT | Continuity of Care Document ---
:1970 Author Organization [facility] t Address [address] [place] [address] Care Team Providers Name Role Phone UNKNOWN Primary Care Physician Unavailable Baltazar HERZOG Attending Clinician Singer DOWLING Attending Clinician Doctor Unassigned, Name Attending Clinician Unavailable Lexie HERZOG Attending Clinician Salvador HOGAN Attending Clinician Bert HERZOG Attending Clinician Geoffrey HERZOG Attending Clinician Geoffrey HERZOG Admitting Clinician Problems Condition Condition Condition Status Onset Resolution Last Treating Co mments Source Name Details Category Date Date Treatment Clinician Date Alcohol Alcohol Disease Active Gila withdrawal withdrawal 10-18 Me thodi 00:00: st 00 Bipolar Bipolar Disease Active Gila affective affective 10-17 Meth edilma disorder, disorder, 00:00: st depressed, depressed, 00 severe, severe, with with psychotic psychotic behavior behavior Allergies, Adverse Reactions, Alerts This patient has no known allergies or adverse reactions. Social History Social Habit Start Date Stop Date Quantity Comments Source History of 1984-10-17 Current every [place] Met hodist tobacco use 00:00:00 day smoker Sex Assigned At G[facility] M ethodist Alcohol intake 2015-10-18 2015-10-18 Current drinker [place] [facility] 00:00:00 00:00:00 of alcohol (finding) Alcohol Comment 2015-10-18 2015-10-18 case a day some [place] [employer] 00:00:00 00:00:00 days Smoking Status Start Date Stop Date Source Current every day smoker 2015-10-18 00:00:00 [place] Medications This patient has no known medications. Procedures This patient has no known procedures. Encounters Start End Encounter Admission Attending Care Care Encounter Source Date/Time Date/Time Type Type Clinicians Facility Department ID 2016-06-11 Inpatient C [facility] [id number] St. 15:30:00 [facility] 2019-09-21 2019-09-21 Telephone [facility] [id number] 00:00:00 00:00:00 Melchor Camarillo [id number] [place] [id number] Professio [id number] [address] 2019-08-17 2019-08-17 Telemedici [facility] [id number] 14:22:37 15:02:11 ne Visit Melchor Camarillo [id number] [place] [id number] Professio [id number] nal [address] [place] [address] 2019-07-27 2019-07-27 Telephone [facility] [id number] 00:00:00 00:00:00 Melchor Cam[place]illo [id number] [place] [id number] Professio [id number] [address] 2019-07-10 2019-07-10 [facility] [id number] 17:33:57 18:51:00 Anselmo [place] [id number] [place] [id number] [place] [id number] 084 2019-07-10 2019-07-10 Orders Doctor JEANNA [id number] 00:00:00 00:00:00 Only Unassigned, [place] [id number] [place] [facility] [id number] 2019-07-08 2019-07-08 [facility] [id number] 00:00:00 00:00:00 Chago [place] [id number] [place] [id number] Professio [id number] [facility] 2019-07-05 2019-07-05 Transition Tawana Franco [id number] 00:00:00 00:00:00 of Care Flori Méndez [id number] [place] [id number] 2019-07-02 2019-07-04 [facility] Bert Lexa [facility] [id number] 11:42:40 18:46:00 Encounter Desean Hale [id number] [place] [id number] [place] [id number] 2019-06-13 2019-06-13 Telephone Lexie [facility] [id number] 00:00:00 00:00:00 [place] [id number] [place] [id number] [facility] [id number] [address] 2019-06-01 2019-06-01 Office Baltazar [facility] [id number] 13:31:45 14:23:22 Visit Melchor [place] [id number] [place] [id number] [facility] [phone] [address] Results This patient has no known results.
--- OUTSIDE RECORDS SUMMARY | 2019-10-23 10:24 | XMS REPORT | Summary of Care ---
:1970 Author Organization [facility] Address [address] [place] [address] Care Team Providers Name Role Phone Unavailable Primary Care Provider Unavailable Reason for Visit Reason Comments Rx Concern/Question Encounter Details Date Type Department Care Team Description 09/21/2019 Telephone [facility] Cardiology- Duane Ledesma MD Rx Concern/Question [address], [address] [place] [address] [place] [address] [phone] Allergies No Known Allergiesdocumented as of this encounter (statuses as of 09/26/2019) Medications Medication Sig Dispensed Refills Start Date End Date Status mirtazapine Take 30 mg 0 Active (REMERON) 30 mg by mouth at tablet bedtime. gabapentin Take 600 mg 0 Active (NEURONTIN) 300 mg by mouth 3 capsule (three) times daily. nitroglycerin 0.[address] 1 1 Bottle 0 05/17/2019 Active sublingual tablet under tabletIndications: the tongue Type 2 AK every 5 (myocardial (five) infarction) minutes as needed for Chest pain. LORazepam 1 mg Take 1 21 tablet 0 07/04/2019 Acti ve tabletIndications: tablet by Alcohol withdrawal mouth 3 syndrome without (three) complication times daily as needed for Anxiety or Agitation. traMADol 50 mg Take 1 21 tablet 0 07/04/2019 Acti ve tabletIndications: tablet by Chest pain, mouth every unspecified type, 6 (six) Closed fracture of hours as multiple ribs of needed for left side, initial Pain (scale encounter 4-6). atorvastatin 40 mg Take 1 30 tablet 5 08/17/2019 Active tablet tablet by mouth daily. apixaban 5 mg Take 1 60 tablet 5 08/17/2019 Activ e tabletIndications: tablet by pulmonary mouth 2 thromboembolism (two) times daily. Indications: a clot in the lung metoprolol tartrate Take 1 60 tablet 5 08/17/2019 Discontinued 50 mg tablet tablet by 0 (Condit ion no mouth 2 longer war rants) (two) times daily. documented as of this encounter (statuses as of 09/26/2019) Active Problems Problem Noted Date Elevated blood pressure reading 07/03/2019 Tachycardia 07/03/2019 Nonobstructive atherosclerosis of coronary artery 06/18 Essential hypertension 07/03/2019 Atypical chest pain 07/03/2019 Alcohol withdrawal 07/02/2019 NSTEMI (non-ST elevated myocardial infarction) 019 Obesity (BMI 30-39.9) 05/17/2019 Type 2 AK (myocardial infarction) 05/17/2019 Secondary hypertension 05/17/2019 Depression 07/04/2012 Acute respiratory failure 07/04/2012 Tobacco abuse disorder 07/04/2012 Alcohol abuse 07/04/2012 Heroin use 07/04/2012 Anxiety disorder 07/04/2012 Suicidal ideation 09/24/2011 documented as of this encounter (statuses as of 09/26/2019) Social History Tobacco Use Types Packs/Day Years [...] Treatment Date Type Specialty Care Team Description 02/20/2020 Office Visit Cardiology Melchor Ledesma M D [address] [place] [address] 15 [phone] Health Maintenance Due Date Last Done Comments DTaP,Tdap,and Td Vaccines (1 - 1983 Tdap) INFLUENZA VACCINE (Season Ended) 2020 Postponed from 01/17/2020 (Refused) PNEUMOCOCCAL 0-64 YEARS COMBINED 06/01/2020 Postponed from 1978 SERIES (1 of 1 - PPSV23) (Refuse d) documented as of this encounter Results Not on filedocumented in this encounter Insurance Payer Benefit Plan / Subscriber ID Effective Dates Phone Addre ss Type Group MEDICARE MEDICARE PART xxxxxxxxxxx 2017-Luigi [phone] Medicare A & B t 2 [id number] RUTH[place] PORTER [id number] documented as of this encounter
--- OUTSIDE RECORDS SUMMARY | 2019-10-23 10:24 | XMS REPORT | Summary of Care ---
:1970 Author Organization [facility] Address [address] [place] [id number] Care Team Providers Name Role Phone MD Lexie Primary Care Provider Reason for Visit Reason Comments Hypertension Encounter Details Date Type Department Care Team Description 08/17/2019 Telemedicine Visit [facility], [place], Other p ulmonary embolism without acute cor pulmonale, unspecified chronicity (Primary Dx); Cardiology- MD Essential hypertension; [address] Obesity (BMI 30-39.9); [facility] [address] Hyperlipidemia, unspecified hyperlipidem ia type Drive, [address] [place] [id number] [phone] Allergies No Known Allergiesdocumented as of this encounter (statuses as of 08/17/2019) Medications Medication Sig Dispensed Refills Start Date End Date Status mirtazapine Take 30 mg 0 Active (REMERON) 30 mg by mouth at tablet bedtime. gabapentin Take 600 mg 0 Active (NEURONTIN) 300 mg by mouth 3 capsule (three) times daily. nitroglycerin 0.[address] 1 1 Bottle 0 05/17/2019 Active sublingual tablet under tabletIndications: the tongue Type 2 UT every 5 (myocardial (five) infarction) minutes as [...] left side, initial Pain (scale encounter 4-6). metoprolol tartrate Take 1 60 tablet 5 08/17/2019 Active 50 mg tablet tablet by mouth 2 (two) times daily. atorvastatin 40 mg Take 1 30 tablet 5 08/17/2019 Active tablet tablet by mouth daily. apixaban 5 mg Take 1 60 tablet 5 08/17/2019 Activ e tabletIndications: tablet by pulmonary mouth 2 thromboembolism (two) times daily. Indications: a clot in the lung aspirin 81 mg Take 1 90 tablet 3 05/18/2019 Disco ntinued chewable tablet by 0 tabletIndications: mouth daily. Type 2 UT (myocardial infarction) atorvastatin 40 mg Take 1 30 tablet 2 05/17/2019 Discontinued tabletIndications: tablet by 0 Type 2 UT mouth at (myocardial bedtime. infarction) metoprolol tartrate Take 1 60 tablet 3 05/17/2019 Discontinued 50 mg tablet by 0 (Reorder) tabletIndications: mouth 2 Type 2 UT (two) times (myocardial daily. infarction), Secondary hypertension documented as of this encounter (statuses as of 08/17/2019) Active Problems Problem Noted Date Elevated blood pressure reading 07/03/2019 Tachycardia 07/03/2019 Nonobstructive atherosclerosis of coronary artery 06/18 Essential hypertension 07/03/2019 Atypical chest pain 07/03/2019 Alcohol withdrawal 07/02/2019 NSTEMI (non-ST elevated myocardial infarction) 019 Obesity (BMI 30-39.9) 05/17/2019 Type 2 UT (myocardial infarction) 05/17/2019 Secondary hypertension 05/17/2019 Depression 07/04/2012 Acute respiratory failure 07/04/2012 Tobacco abuse disorder 07/04/2012 Alcohol abuse 07/04/2012 Heroin use 07/04/2012 Anxiety disorder 07/04/2012 Suicidal ideation 09/24/2011 documented as of this encounter (statuses as of 08/17/2019) Social History Tobacco Use Types Packs/Day Years [...] Signs Not on filedocumented in this encounter Progress Notes Melchor Ledesma MD - 08/17/2019 2:40 PM CDT CARDIOLOGY CLINIC NOTE 08/17/2019 Reason for Referral/Presenting Complaint: pulmonary embolism follow up PCP: Chago Owen History of Present Illness: Frank Polo is a 49 years old male with history of obesity. In 04/2019 he was [facility] for chest pain and mild troponin elevation in the setting of alcohol withdrawal. LHC showed no significant CAD. Was started ASA/lipitor/metoprolol/lisinopril. His BP has been normal. Mild dizziness/maye tigo. In 2019 he was diagnosed PE in [facility]. Now on Eliquis. No bleeding. Off lipitor. Some vertigo. Cardiovascular testing: EKG: Normal sinus rhythm. Normal EKG. Echocardiogram: Ejection Fraction = 60-65%. Diastolic function is impaired relaxation. Insufficient Tricuspid [...] Current Outpatient Medications Medication Sig Dispense Refill apixaban 5 mg tablet Take 1 tablet by mouth 2 (two) times daily. Indications: a clot in the lung60 tablet 5 atorvastatin 40 mg tablet Take 1 tablet by mouth daily. 30 tablet 5 metoprolol tartrate 50 mg tablet Take 1 tablet by mouth 2 (two) times daily. 60 tablet 5 LORazepam 1 mg tablet Take 1 tablet by mouth 3 (three) times daily as needed for Anxiety or Agitation. 21 tablet 0 traMADol 50 mg tablet Take 1 tablet by mouth every 6 (six) hours as needed for Pain (scale 4-6).21 tablet 0 nitroglycerin 0.[address] 1 tablet under the tongue every 5 (five) minutes as needed for Chest pain. 1 Bottle 0 gabapentin (NEURONTIN) 300 mg capsule Take 600 mg by mouth 3 (three) times daily. mirtazapine (REMERON) 30 mg tablet Take 30 mg by mouth at bedtime. No current facility-administered medications for this visit. [...] file Gets together: Not on file Attends mandaeism service: Not on file Active member of [...] Onset Coronary Heart Disease Father Physical Examination: Constitutional: Alert and in no distress Respiratory: Breathing comfortably Neurology: Answers questions appropriately Assessment/Plan: ICD-10-CM ICD-9-CM 1. Other pulmonary embolism without acute cor pulmonale, unspecified chronicity I26.99 415.19 2. Essential hypertension I10 401.9 3. Obesity (BMI 30-39.9) E66.9 278.00 4. Hyperlipidemia, unspecified hyperlipidemia type E78.5 272.4 Pulmonary embolism--Continue Eliquis 5 mg BID. Uncertain what provoked PE. Stop ASA. HTN--BP is controlled. Continue metoprolol. Coronary artery atherosclerosis--Stop ASA since he is on Eliquis. Will restart liptor. Patient was counseled for lifestyle modifications including: diet, exercise and weight loss. RTC 6 months Telehealth service ? Verbal consent obtained from patient Frank Polo for telehealth sevice provided ? My location[facility] cardi[facility] ? Patient location: Home ? Format: Communication with patient was conducted via Telephone due to patient unable to obtain video call option ? A total of 25 minutes spent on the telephone with the patient Melchor Ledesma MD, [facility], [place] Pilot Control Operator, Division of Cardiology [facility] documented in this encounter Plan of Treatment Date Type Specialty Care Team Description 02/20/2020 Office Visit Cardiology Melchor Ledesma M D [address] [id number] [phone] Health Maintenance Due Date Last Done Comments DTaP,Tdap,and Td Vaccines ( - 1983 Tdap) INFLUENZA VACCINE (#1) 2020 Postponed from 01/16/2019 (Refused) PNEUMOCOCCAL 0-64 YEARS COMBINED 06/01/2020 Postponed from 1978 SERIES (1 of 1 - PPSV23) (Refuse d) documented as of this encounter Results Not on filedocumented in this encounter Visit Diagnoses Diagnosis Other pulmonary embolism without acute c or pulmonale, unspecified chronicity - Primary Essential hypertension Unspecified essential hypertension Obesity (BMI 30-39.9) Obesity, unspecified Hyperlipidemia, unspecified hyperlipidem ia type documented in this encounter Insurance Payer Benefit Plan / Subscriber ID Effective Dates Phone Addre ss Type Group MEDICARE MEDICARE PART xxxxxxxxxxx 2017-Luigi [phone] [facility] Medicare A & B t 2 [id number] [place]TER [id number] documented as of this encounter
[2019-10-23 11:57] LABS: Protime INR 1.37
[2019-10-23 12:05] LABS: Absolute Lymphocytes (CBC) 1.2 K/uL (0.7-4.9); Basophils % 0.9 % (0-1.3); Hematocrit 44.2 % (39.6-49.0); Lymphocytes % 22.2 % (15.3-44.8); MPV 9.1 fL (7.6-11.3); RBC Red Blood Cell Count 5.63 M/uL (4.33-5.43)
[2019-10-23 12:06] LABS: ALT/SGPT 49 U/L (12-78); AST/SGOT 37 U/L (15-37); Albumin 4.3 g/dL (3.4-5.0); Alkaline Phosphatase 117 U/L (45-117); BUN Blood Urea Nitrogen 11 mg/dL (7-18); Bicarbonate 22 mmol/L (21-32); Bilirubin Total 0.6 mg/dL (0.2-1.0); Glucose Level 84 mg/dL (74-106); Potassium 3.8 mmol/L (3.5-5.1); Protein, Total 8.1 g/dL (6.4-8.2); Sodium Level 139 mmol/L (136-145)
--- NOTE | 2019-10-23 12:09 | EDPHYS ---
Physician Documentation [facility] Name: Frank Polo Age: 49 yrs Sex: Male : 1970 Arrival Date: 10/23/2019 Time: 10:23 Bed 19 Private MD: ED Physician Jani Benavides HPI: 10/22 10:32 This 49 yrs old Male presents to ER via Ambulatory with complaints of pm1 unexplained bruises. 10:32 Patient presents to the ER with complaint of 4 bruises to his right rib cage that he pm1 noticed this AM. The patient has not experienced similar symptoms in the past. Patient has been taking Eliquis for approximately 1 year due to PE. No chest pain, shortness of breath, dizziness, or headache. Denies any trauma or injury. No longer drinks alcohol. No hematuria, bleeding gums, rectal bleeding, or any other obvious signs of bleeding Patient noticed four bruises to his right anterior lateral chest this AM. . Historical: - Allergies: 10:34 NKDA; hb - Home Meds: 10:34 Eliquis Oral [Active]; gabapentin 300 mg Oral cap 1 cap 3 times per day [Active]; hb Remeron 15 mg Oral tab [Active]; Seroquel Oral [Active]; Eliquis oral oral [Active]; - PMHx: 10:34 Alcoholism; Anxiety; Bipolar disorder; PE; hb - PSHx: 10:34 left ankle surgery; hb - Immunization history:: Adult Immunizations up to date. - Social history:: Smoking status: Patient denies any tobacco usage or history of. ROS: 10:32 Constitutional: Negative for fever, chills, and weight loss, Neck: Negative for injury, pm1 pain, and swelling, Cardiovascular: Negative for chest pain, palpitations, and edema, Respiratory: Negative for shortness of breath, cough, wheezing, and pleuritic chest pain, Abdomen/GI: Negative for abdominal pain, nausea, vomiting, diarrhea, and constipation, Back: Negative for injury and pain, MS/Extremity: Negative for injury and deformity. 10:32 Neuro: Negative for headache, weakness, numbness, tingling, and seizure. 10:32 Skin: Positive for of the right lateral anterior chest, bruising. Exam: 10:32 Constitutional: This is a well developed, well nourished patient who is awake, alert, pm1 and in no acute distress. Head/Face: Normocephalic, atraumatic. Neck: Trachea midline, no thyromegaly or masses palpated, and no cervical lymphadenopathy. Supple, full range of motion without nuchal rigidity, or vertebral point tenderness. No Meningismus. Chest/axilla: Normal chest wall appearance and motion. Nontender with no deformity. No lesions are appreciated. 10:32 Respiratory: Lungs have equal breath sounds bilaterally, clear to auscultation and percussion. No rales, rhonchi or wheezes noted. No increased work of breathing, no retractions or nasal flaring. 10:32 Back: No spinal tenderness. No costovertebral tenderness. Full range of motion. 10:32 Cardiovascular: Exam negative for acute changes, Rate: normal, Rhythm: regular, Pulses: no pulse deficits are appreciated. 10:32 Abdomen/GI: Exam negative for acute changes, Inspection: abdomen appears normal, Palpation: abdomen is soft and non-tender, in all quadrants, mass, is not appreciated, rebound tenderness, is not appreciated. 10:32 Skin: Appearance: normal except for affected area, 1 cm diameter circular bruise on right anterior lateral chest. 10:32 Neuro: Exam negative for acute changes, Orientation: is normal, Mentation: is normal, Motor: is normal, moves all fours, Gait: is steady, at a normal pace, without difficulty. Vital Signs: 10:29 BP 144 / 93; Pulse 68; Resp 16; Temp 98; Pulse Ox 100% ; Pain 0/10; hb MDM: 10:24 Patient medically screened. pm1 10:46 Data reviewed: vital signs. Data interpreted: Pulse oximetry: on room air is 100 %. pm1 Interpretation: normal. 12:07 Counseling: I had a detailed discussion with the patient and/or guardian regarding: the pm1 historical points, exam findings, and any diagnostic results supporting the discharge/admit diagnosis, lab results, the need for outpatient follow up, to return to the emergency department if symptoms worsen or persist or if there are any questions or concerns that arise at home. 10/22 10:31 Order name: CBC with Diff; Complete Time: 12:07 pm1 10/22 10:31 Order name: CMP; Complete Time: 12:07 pm1 10/22 10:31 Order name: PT-INR; Complete Time: 12:07 pm1 10/22 10:31 Order name: Ptt, Activated; Complete Time: 12:07 pm1 Administered Medications: No medications were administered Disposition: 15:18 Co-signature as Attending Physician, Jani Benavides MD. rn Disposition: 10/23/19 12:09 Discharged to Home. Impression: Spontaneous ecchymoses. - Condition is Stable. - Discharge Instructions: Hematoma. - Medication Reconciliation Form, Thank You Letter, Antibiotic Education, Prescription Opioid Use form. - Follow up: Emergency Department; When: As needed; Reason: Worsening of condition. Follow up: Private Physician; When: 2 - 3 days; Reason: Recheck today's complaints, Continuance of care, Re-evaluation by your physician. - Problem is new. - Symptoms have improved. Signatures: Dispatcher [employer] EDJani Iniguez MD MD rn Alexis Mcfarland, EXCAVATING MACHINE OPERATOR EXCAVATING MACHINE OPERATOR pm1 Anne-Marie Jameson RN RN hb Corrections: (The following items were deleted from the chart) 12:28 12:09 10/23/2019 12:09 Discharged to Home. Impression: Spontaneous ecchymoses. hb Condition is Stable. Forms are Medication Reconciliation Form, Thank You Letter, Antibiotic Education, Prescription Opioid Use. Follow up: Emergency Department; When: As needed; Reason: Worsening of condition. Follow up: Private Physician; When: 2 - 3 days; Reason: Recheck today's complaints, Continuance of care, Re-evaluation by your physician. Problem is new. Symptoms have improved. pm1
--- NOTE | 2019-10-23 12:09 | ER ---
Nurse's Notes [facility] Name: Frank Polo Age: 49 yrs Sex: Male : 1970 Arrival Date: 10/23/2019 Time: 10:23 Bed 19 Private MD: Diagnosis: Spontaneous ecchymoses Presentation: 10/22 10:29 Chief complaint: Reports bruising on right lateral chest of unknown origin. Denies hb injury. Take Eliquis. Coronavirus screen: Proceed with normal triage. Ebola Screen: No symptoms or risks identified at this time. Initial Sepsis Screen: Does the patient meet any 2 criteria? No. Patient's initial sepsis screen is negative. Does the patient have a suspected source of infection? No. Patient's initial sepsis screen is negative. Risk Assessment: Do you want to hurt yourself or someone else? Patient reports no desire to harm self or others. Onset of symptoms was October 23, 2019. 10:29 Method Of Arrival: Ambulatory 10:29 Acuity: PRANAV 3 hb Historical: - Allergies: 10:34 NKDA; hb - Home Meds: 10:34 Eliquis Oral [Active]; gabapentin 300 mg Oral cap 1 cap 3 times per day [Active]; hb Remeron 15 mg Oral tab [Active]; Seroquel Oral [Active]; Eliquis oral oral [Active]; - PMHx: 10:34 Alcoholism; Anxiety; Bipolar disorder; PE; hb - PSHx: 10:34 left ankle surgery; hb - Immunization history:: Adult Immunizations up to date. - Social history:: Smoking status: Patient denies any tobacco usage or history of. Screenin:08 Abuse screen: Denies threats or abuse. Nutritional screening: No deficits noted. Tuberculosis screening: No symptoms or risk factors identified. Fall Risk None identified. Assessment: 10:35 General: Appears in no apparent distress. Behavior is cooperative. Pain: Denies pain. Neuro: Level of Consciousness is awake, alert, Oriented to person, place. Cardiovascular: Capillary refill < 3 seconds Patient's skin is warm and dry. Respiratory: Airway is patent Respiratory effort is even, unlabored. Derm: Reports increased bruising with no known injury. Vital Signs: 10:29 BP 144 / 93; Pulse 68; Resp 16; Temp 98; Pulse Ox 100% ; Pain 0/10; hb ED Course: 10:23 Patient arrived in ED. as 10:24 Alexis Mcfarland NP is PHCP. pm1 10:24 Jani Benavides MD is Attending Physician. pm1 10:33 Triage completed. hb 10:34 Arm band placed on. hb 10:49 Flor Alexander, RN is Primary Nurse. 12:09 Patient has correct armband on for positive identification. Bed in low position. Call light in reach. Side rails up X 1. Pulse ox on. NIBP on. 12:09 No provider procedures requiring assistance completed. Patient did not have IV access during this emergency room visit. Administered Medications: No medications were administered Outcome: 12:09 Discharge ordered by . pm1 12:15 Discharged to home ambulatory. 12:15 Condition: good 12:15 Discharge instructions given to patient, Instructed on discharge instructions, follow up and referral plans. Demonstrated understanding of instructions, follow-up care. 12:28 Patient left the ED. hb Signatures: Isabel Aviles as Alexis Mcfarland NP BATTERY TESTER AND REPAIRER pm1 Anne-Marie Jameson, RN RN Flor Alexander, RN RN
[2019-10-23 12:34] VITALS: BP 144/93; TEMP 98; O2SAT 100
== END 2019-10-23 12:28 | disposition home or self-care (01) ==
LOC: ER 10:21
DX: R23.3 Spontaneous ecchymoses (principal); F10.20 Alcohol dependence, uncomplicated; F31.9 Bipolar disorder, unspecified; Z79.01 Long term (current) use of anticoagulants; Z86.711 Personal history of pulmonary embolism
CPT/HCPCS: 36415; 80053; 85025; 85610; 85730; 99283

== ENCOUNTER 2019-11-11 15:02 | Emergency (ER) | payer OTHER ==
--- NOTE | 2019-11-11 16:29 | ER ---
Nurse's Notes [facility] Name: Frank Polo Age: 49 yrs Sex: Male : 1970 Arrival Date: 11/11/2019 Time: 15:04 Bed 20 Private MD: Diagnosis: Petechia Presentation: 11/10 15:45 Chief complaint: Patient states: There's a like a sore on in my inner L cheek. I don't ca1 know how long has it been there or if I bit it or what. It doesn't hurt but I just want it checked. Coronavirus screen: Proceed with normal triage. Patient denies a cough. Patient denies shortness of breath or difficulty breathing. Patient denies measured and/or subjective temperature greater than 100.4F prior to today's visit. Patient denies travel on a cruise ship or to a country the [facility] currently lists as an affected area. Patient denies contact with known and/or suspected case of COVID-19. Ebola Screen: Patient negative for fever greater than or equal to 101.5 degrees Fahrenheit, and additional compatible Ebola Virus Disease symptoms Patient denies exposure to infectious person. Patient denies travel to an Ebola-affected area in the 21 days before illness onset. No symptoms or risks identified at this time. Initial Sepsis Screen: Does the patient meet any 2 criteria? No. Patient's initial sepsis screen is negative. Does the patient have a suspected source of infection? No. Patient's initial sepsis screen is negative. Risk Assessment: Do you want to hurt yourself or someone else? Patient reports no desire to harm self or others. Onset of symptoms was November 11, 2019. 15:45 Method Of Arrival: Ambulatory ca1 15:45 Acuity: PRANAV 5 ca1 Historical: - Allergies: 15:49 NKDA; ca1 - Home Meds: 15:49 Eliquis Oral [Active]; gabapentin 300 mg Oral cap 1 cap 3 times per day [Active]; ca1 Remeron 15 mg Oral tab [Active]; atorvastatin oral oral [Active]; - PMHx: 15:49 Alcoholism; Anxiety; Bipolar disorder; PE; ca1 - PSHx: 15:49 left ankle surgery; ca1 - Immunization history:: Adult Immunizations up to date. - Social history:: Smoking status: Patient reports use of chewing tobacco. Screenin:35 Abuse screen: Denies threats or abuse. Denies injuries from another. Nutritional iw screening: No deficits noted. Tuberculosis screening: No symptoms or risk factors identified. Fall Risk None identified. Assessment: 16:34 General: Appears in no apparent distress. Behavior is calm, cooperative. Pain: iw Complains of pain in mouth. Neuro: Level of Consciousness is awake, alert, obeys commands, Oriented to person, place, time, situation, Moves all extremities. Full function. Cardiovascular: Patient's skin is warm and dry. Respiratory: Respiratory effort is even, unlabored, Respiratory pattern is regular, symmetrical. Derm: Skin is intact, is healthy with good turgor. Musculoskeletal: Range of motion: intact in all extremities. Vital Signs: 15:49 BP 126 / 95; Pulse 75; Resp 15 S; Pulse Ox 97% on R/A; ca1 15:51 BP 114 / 74; ca1 16:41 BP 111 / 69; Pulse 81; Resp 15 S; Pulse Ox 98% on R/A; ca1 ED Course: 15:04 Patient arrived in ED. ag5 15:47 Triage completed. ca1 15:49 Arm band placed on right wrist. ca1 16:17 Cesia Ramon, RN is Primary Nurse. iw 16:17 Oliver White PA is PHCP. jrKit 16:17 Tay Key MD is Attending Physician. jr8 16:35 Patient has correct armband on for positive identification. ca1 16:41 No provider procedures requiring assistance completed. Patient did not have IV access ca1 during this emergency room visit. Administered Medications: No medications were administered Outcome: 16:29 Discharge ordered by . jr8 16:42 Discharged to home ambulatory. ca1 16:42 Condition: stable 16:42 Discharge instructions given to patient, Instructed on discharge instructions, follow up and referral plans. Demonstrated understanding of instructions, follow-up care. 16:42 Patient left the ED. ca1 Signatures: Cesia Ramon RN RN Oliver White PA PA jr8 Acob, Cheryl, RN RN ca1 Gaskin, Ajare ag5
--- NOTE | 2019-11-11 16:30 | EDPHYS ---
Physician Documentation [facility] Name: Frank Polo Age: 49 yrs Sex: Male : 1970 Arrival Date: 11/11/2019 Time: 15:04 Bed 20 Private MD: ED Physician Tay Key HPI: 11/11 01:49 This 49 yrs old Male presents to ER via Ambulatory with complaints of Mouth jr8 Problem. 01:49 Modifying factors: The symptoms are alleviated by nothing, the symptoms are aggravated jr8 by nothing. Associated signs and symptoms: The patient has no apparent associated signs or symptoms. Severity of symptoms: At their worst the symptoms were very mild, in the emergency department the symptoms are unchanged. It is unknown whether or not the patient has had similar symptoms in the past. The patient has not recently seen a physician. Patient stated that she had soar in mouth for past week that is now healed up. Looked into mouth to check on it today and saw black dots. Wanted it evaluated to make sure nothing was wrong . Historical: - Allergies: 11/10 15:49 NKDA; ca1 - Home Meds: 15:49 Eliquis Oral [Active]; gabapentin 300 mg Oral cap 1 cap 3 times per day [Active]; ca1 Remeron 15 mg Oral tab [Active]; atorvastatin oral oral [Active]; - PMHx: 15:49 Alcoholism; Anxiety; Bipolar disorder; PE; ca1 - PSHx: 15:49 left ankle surgery; ca1 - Immunization history:: Adult Immunizations up to date. - Social history:: Smoking status: Patient reports use of chewing tobacco. ROS: 11/11 01:55 Eyes: Negative for injury, pain, redness, and discharge, ENT: Negative for injury, jr8 pain, and discharge, Neck: Negative for injury, pain, and swelling, Cardiovascular: Negative for chest pain, palpitations, and edema, Respiratory: Negative for shortness of breath, cough, wheezing, and pleuritic chest pain, Abdomen/GI: Negative for abdominal pain, nausea, vomiting, diarrhea, and constipation, Back: Negative for injury and pain, MS/Extremity: Negative for injury and deformity, Skin: Negative for injury, rash, and discoloration, Neuro: Negative for headache, weakness, numbness, tingling, and seizure. Exam: 01:55 Eyes: Pupils equal round and reactive to light, extra-ocular motions intact. Lids and jr8 lashes normal. Conjunctiva and sclera are non-icteric and not injected. Cornea within normal limits. Periorbital areas with no swelling, redness, or edema. ENT: Nares patent. No nasal discharge, no septal abnormalities noted. Tympanic membranes are normal and external auditory canals are clear. Oropharynx with no redness, swelling, or masses, exudates, or evidence of obstruction, uvula midline. Mucous membranes moist. Patient had 3 small patechia areas to left cheek Neck: Trachea midline, no thyromegaly or masses palpated, and no cervical lymphadenopathy. Supple, full range of motion without nuchal rigidity, or vertebral point tenderness. No Meningismus. Cardiovascular: Regular rate and rhythm with a normal S1 and S2. No gallops, murmurs, or rubs. Normal PMI, no JVD. No pulse deficits. Respiratory: Lungs have equal breath sounds bilaterally, clear to auscultation and percussion. No rales, rhonchi or wheezes noted. No increased work of breathing, no retractions or nasal flaring. Abdomen/GI: Soft, non-tender, with normal bowel sounds. No distension or tympany. No guarding or rebound. No evidence of tenderness throughout. Skin: Warm, dry with normal turgor. Normal color with no rashes, no lesions, and no evidence of cellulitis. MS/ Extremity: Pulses equal, no cyanosis. Neurovascular intact. Full, normal range of motion. Neuro: Awake and alert, GCS 15, oriented to person, place, time, and situation. Cranial nerves II-XII grossly intact. Motor strength 5/5 in all extremities. Sensory grossly intact. Cerebellar exam normal. Normal gait. Vital Signs: 11/10 15:49 BP 126 / 95; Pulse 75; Resp 15 S; Pulse Ox 97% on R/A; ca1 15:51 BP 114 / 74; ca1 16:41 BP 111 / 69; Pulse 81; Resp 15 S; Pulse Ox 98% on R/A; ca1 MDM: 16:21 Patient medically screened. 8 16:26 Data reviewed: vital signs, nurses notes, and as a result, I will discharge patient. jr8 Data interpreted: Pulse oximetry: on room air is 97 %. Interpretation: normal. Counseling: I had a detailed discussion with the patient and/or guardian regarding: the historical points, exam findings, and any diagnostic results supporting the discharge/admit diagnosis, the need for outpatient follow up, a family practitioner, to return to the emergency department if symptoms worsen or persist or if there are any questions or concerns that arise at home. ED course: Discussed with patient that what he saw in his mouth is 3 little petechial spots from healing wound. No other abnormal tissue noted. That he can f/u with PCP in 1-2 weeks for recheck. Patient good with this . Administered Medications: No medications were administered Disposition: 11/11 07:11 Co-signature as Attending Physician, Tay Key MD I agree with the assessment and amy plan of care. Disposition: 11/11/19 16:29 Discharged to Home. Impression: Petechia . - Condition is Stable. - Medication Reconciliation Form, Thank You Letter, Antibiotic Education, Prescription Opioid Use form. - Follow up: Private Physician; When: As needed; Reason: Recheck today's complaints, Continuance of care, Re-evaluation by your physician. - Problem is new. - Symptoms have improved. Signatures: Tay Key MD MD cha Roszak, Josh, PA PA jr8 Velma Birmingham RN RN ca1 Corrections: (The following items were deleted from the chart) 11/10 16:42 16:29 11/11/2019 16:29 Discharged to Home. Impression: Petechia . Condition is Stable. ca1 Forms are Medication Reconciliation Form, Thank You Letter, Antibiotic Education, Prescription Opioid Use. Follow up: Private Physician; When: As needed; Reason: Recheck today's complaints, Continuance of care, Re-evaluation by your physician. Problem is new. Symptoms have improved. jr8
[2019-11-11 17:02] VITALS: BP 111/69; O2SAT 98
--- OUTSIDE RECORDS SUMMARY | 2019-11-11 17:33 | XMS REPORT | Clinical Summary ---
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
--- OUTSIDE RECORDS SUMMARY | 2019-11-11 17:34 | XMS REPORT | Continuity of Care Document ---
:1970 Author Organization [facility] t Address [address] [place] [address] Care Team Providers Name Role Phone UNKNOWN [...] Treatment Clinician Date Alcohol Alcohol Disease Active [place] withdrawal withdrawal 10-18 Me thodi 00:00: st 00 Bipolar Bipolar Disease Active [place] [facility] affective affective 10-17 Meth edilma disorder, disorder, 00:00: st depressed, depressed, 00 severe, severe, with with psychotic psychotic behavior behavior Allergies, Adverse Reactions, Alerts This patient has no known allergies or adverse reactions. Social History Social Habit Start Date Stop Date Quantity Comments Source History of 1984-10-17 Current every [place] [facility] Met hodist tobacco use 00:00:00 day smoker Sex Assigned At [facility] M ethodist Alcohol intake 2015-10-18 2015-10-18 Current drinker [place] [facility] 00:00:00 00:00:00 of alcohol (finding) Alcohol Comment 2015-10-18 2015-10-18 case a day some [place] [facility] 00:00:00 00:00:00 days Smoking Status Start Date Stop Date Source Current every day smoker 2015-10-18 00:00:00 [place] [facility] Medications This patient has no known medications. Procedures This patient has no known procedures. Encounters Start End Encounter Admission Attending Care Care Encounter Source Date/Time Date/Time Type Type Clinicians Facility Department ID 2016-06-11 Inpatient [facility] [id number] St. 15:30:00 [facility] 2019-10-23 2019-10-23 Telephone [facility] [id number] 00:00:00 00:00:00 Juanpablouzma Marquise [id number] [place] [id number] Professio [id number] [address] 2019-09-21 2019-09-21 Telephone [facility] [id number] 00:00:00 00:00:00 Melchor Camarillo [id number] [place] [id number] [phone] [address] 2019-08-17 2019-08-17 Telemedici [facility] [id number] 14:22:37 15:02:11 ne Visit Melchor Camarillo [id number] [place] [id number] Professio [id number] [address] 2019-07-27 2019-07-27 Telephone [facility] [id number] 00:00:00 00:00:00 Melchor Camarillo [id number] [place] [id number] Professio [phone] [address] 2019-07-10 2019-07-10 Emergency Zuniga, [facility] [id number] 17:33:57 18:51:00 Anselmo Camarillo [id number] [place] [id number] [place] [id number] [id number] 2019-07-10 2019-07-10 Orders Doctor JEANNA [id number] 00:00:00 00:00:00 Only Unassigned, [place] [id number] [place] [facility] [id number] 2019-07-08 2019-07-08 [facility] [id number] 00:00:00 00:00:00 Chago [place] [id number] [place] [id number] Professio [phone] [address] 2019-07-05 2019-07-05 Transition Tawana Franco [id number] 00:00:00 00:00:00 of Care Flori Méndez [id number] [place] [id number] 2019-07-02 2019-07-04 [facility] Lexa Noel [facility] [id number] 11:42:40 18:46:00 Encounter Desean Hale [id number] [place] [id number] [place] [id number] [id number] 2019-06-13 2019-06-13 [facility] [id number] 00:00:00 00:00:00 Chago [place] [id number] [place] [id number] Professio [phone] [address] 2019-06-01 2019-06-01 Office [facility] [id number] 13:31:45 14:23:22 Visit Melchor Camarillo [id number] [place] [id number] Professio [phone] [address] Results This patient has no known results.
--- OUTSIDE RECORDS SUMMARY | 2019-11-11 17:35 | XMS REPORT | Summary of Care ---
:1970 Author Organization [facility] Address [address] [place] [address] Care Team Providers Name Role Phone Unavailable Primary Care Provider Unavailable Reason for Visit Reason Comments Notification Encounter Details Date Type Department Care Team Description 10/23/2019 Telephone [facility] Cardiology- Duane Ledesma MD Notification [place] [address] [facility] [address] [place] [address] [place] [address] [phone] Allergies No Known Allergiesdocumented as of this encounter (statuses as of 10/25/2019) Medications Medication Sig Dispensed Refills Start Date End Date Status mirtazapine (REMERON) 30 Take 30 mg by 0 Active mg tablet mouth at bedtime. gabapentin (NEURONTIN) Take 600 mg by 0 Active 300 mg capsule mouth 3 (three) times daily. nitroglycerin 0.[address] 1 tablet 1 Bottle 0 05/17/2019 Active sublingual under the tongue tabletIndications: Type every 5 (five) 2 MD (myocardial minutes as infarction) needed for Chest pain. LORazepam 1 mg Take 1 tablet by 21 tablet 0 07/04/2019 Active tabletIndications: mouth 3 (three) Alcohol withdrawal times daily as syndrome without needed for complication Anxiety or Agitation. traMADol 50 mg Take 1 tablet by 21 tablet 0 07/04/2019 Active tabletIndications: Chest mouth every 6 pain, unspecified type, (six) hours as Closed fracture of needed for Pain multiple ribs of left (scale 4-6). side, initial encounter atorvastatin 40 mg Take 1 tablet by 30 tablet 5 08/17/2019 Active tablet mouth daily. apixaban 5 mg Take 1 tablet by 60 tablet 5 08/17/2019 Active tabletIndications: mouth 2 (two) pulmonary times daily. thromboembolism Indications: a clot in the lung documented as of this encounter (statuses as of 10/25/2019) Active Problems Problem Noted Date Elevated blood pressure reading 07/03/2019 Tachycardia 07/03/2019 Nonobstructive atherosclerosis of coronary artery 06/18 Essential hypertension 07/03/2019 Atypical chest pain 07/03/2019 Alcohol withdrawal 07/02/2019 NSTEMI (non-ST elevated myocardial infarction) 019 Obesity (BMI 30-39.9) 05/17/2019 Type 2 MD (myocardial infarction) 05/17/2019 Secondary hypertension 05/17/2019 Depression 07/04/2012 Acute respiratory failure 07/04/2012 Tobacco abuse disorder 07/04/2012 Alcohol abuse 07/04/2012 Heroin use 07/04/2012 Anxiety disorder 07/04/2012 Suicidal ideation 09/24/2011 documented as of this encounter (statuses as of 10/25/2019) Social History Tobacco Use Types Packs/Day Years [...] Visit Cardiology Melchor Ledesma M D [address] [place] [address] 15 [phone] Health Maintenance Due Date Last Done Comments DTaP,Tdap,and Td Vaccines (1 - 1983 Tdap) Depression Screening 1984 INFLUENZA VACCINE (Season Ended) 2020 Postponed from 01/17/2020 (Refused) PNEUMOCOCCAL 0-64 YEARS COMBINED 06/01/2020 Postponed from 1978 SERIES ( - PPSV23) (Refuse d) documented as of this encounter Results Not on filedocumented in this encounter Insurance Payer Benefit Plan / Subscriber ID Effective Dates Phone Addre ss Type Group MEDICARE MEDICARE PART xxxxxxxxxxx 2017-Luigi [phone] Medicare A & B t [id number] [place] [address] documented as of this encounter
== END 2019-11-11 16:42 | disposition home or self-care (01) ==
LOC: ER 15:02
DX: R23.3 Spontaneous ecchymoses (principal); F41.9 Anxiety disorder, unspecified; Z72.0 Tobacco use
CPT/HCPCS: 99281

== ENCOUNTER 2019-11-25 10:41 | Emergency (ER) | payer OTHER ==
--- OUTSIDE RECORDS SUMMARY | 2019-11-25 10:45 | XMS REPORT | Clinical Summary ---
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
--- OUTSIDE RECORDS SUMMARY | 2019-11-25 10:45 | XMS REPORT | Continuity of Care Document ---
:1970 Author Organization [facility] t Address [address] [place] [address] Care Team Providers Name Role Phone UNKNOWN Primary Care Physician Unavailable Singer DOWLING Attending Clinician Baltazar HERZOG Attending Clinician Doctor Unassigned, Name Attending Clinician Unavailable Lexie HERZOG Attending Clinician Salvador HOGAN Attending Clinician Bert HERZOG Attending Clinician Geoffrey HERZOG Attending Clinician Geoffrey HERZOG Admitting Clinician Problems Condition Condition Condition Status Onset Resolution Last Treating Co mments Source Name Details Category Date Date Treatment Clinician Date Alcohol Alcohol Disease Active [place] withdrawal withdrawal 10-18 Me thodi 00:00: st 00 Bipolar Bipolar Disease Active [place] affective affective 10-17 Meth edilma disorder, disorder, 00:00: st depressed, depressed, 00 severe, severe, with with psychotic psychotic behavior behavior Allergies, Adverse Reactions, Alerts This patient has no known allergies or adverse reactions. Social History Social Habit Start Date Stop Date Quantity Comments Source History of 1984-10-17 Current every [place] Met hodist tobacco use 00:00:00 day smoker Sex Assigned At [place] M ethodist Alcohol intake 2015-10-18 2015-10-18 Current drinker [place] 00:00:00 00:00:00 of alcohol (finding) Alcohol Comment 2015-10-18 2015-10-18 case a day some [place] 00:00:00 00:00:00 days Smoking Status Start Date Stop Date Source Current every day smoker 2015-10-18 00:00:00 [place] Medications This patient has no known medications. Procedures This patient has no known procedures. Encounters Start End Encounter Admission Attending Care Care Encounter Source Date/Time Date/Time Type Type Clinicians Facility Department ID 2016-06-11 Inpatient C [facility] [id number] St. 15:30:00 [facility] 2019-11-18 2019-11-18 Emergency [facility] [id number] 09:42:51 11:00:00 Anselmo Macdonaldton [id number] [place] [id number] [place] [id number] 2019-10-23 2019-10-23 Telephone [facility] [id number] 00:00:00 00:00:00 Melchor Camarillo [id number] [place] [id number] Professio [phone] [address] 2019-09-21 2019-09-21 [facility] [place] [id number] 00:00:00 00:00:00 Melchor Camarillo [id number] [place] [id number] Professio [phone] [address] 2019-08-17 2019-08-17 Telemedici [facility] [id number] 14:22:37 15:02:11 ne Visit Melchor Camarillo [id number] [place] [id number] Professio [phone] [address] 2019-07-27 2019-07-27 Telephone [facility] [id number] 00:00:00 00:00:00 Melchor Camarillo [id number] [place] [id number] Professio [phone] [address] 2019-07-10 2019-07-10 Emergency [facility] [id number] 17:33:57 18:51:00 Anselmo Camarillo [id number] [place] [id number] [place] [id number] 2019-07-10 2019-07-10 Orders Doctor JEANNA [id number] 00:00:00 00:00:00 Only Unassigned, [place] 350.1.13.10 [place] [address]686 [id number] [id number] 2019-07-08 2019-07-08 Telephone [facility] [id number] 00:00:00 00:00:00 Chago Camarillo 350.1.13.10 [place] 4.2.7.2.686 Professio [phone] [address] 2019-07-05 2019-07-05 Transition Tawana Franco [id number] 00:00:00 00:00:00 of Care Flori Méndez [id number] [place] 4.2.7.2.686 [id number] 2019-07-02 2019-07-04 [facility] Lexa Noel [facility] 1.2.840.1 [id number] 11:42:40 18:46:00 Encounter Desean Hale [id number] [place] 4.2.7.2.686 [place] [id number] [id number] 2019-06-13 2019-06-13 Telephone [facility] [id number] 00:00:00 00:00:00 Chago Camarillo [id number] [place] [id number] Professio [phone] [address] 2019-06-01 2019-06-01 Office [facility] [id number] 13:31:45 14:23:22 Visit Melchor Camarillo [id number] [place] [id number] Professio [phone] [address] Results This patient has no known results.
--- OUTSIDE RECORDS SUMMARY | 2019-11-25 10:46 | XMS REPORT | Summary of Care ---
:1970 Author Organization [facility] - Health Address [address] [place] [address] Care Team Providers Name Role Phone Pcp, Does Not Have A Primary Care Provider Reason for Visit Reason Comments Other only wants to talk to male d octor Auth/Cert Status Reason Specialty Diagnoses / Referred By Referred To Procedures Contact Contact Emergency Medicine [facility] Em ergency Dept [address] [place] [address] Fax: Encounter Details Date Type Department Care Team Description 11/18/2019 Emergency ADC-Emergency Anselmo Zuniga DO [facility] penile papules Department [address] [place] [address]. (Primary Dx) 132 [facility] [address] [place] [id number] [place] [address] [phone] Allergies No Known Allergiesdocumented as of this encounter (statuses as of 11/18/2019) Medications Medication Sig Dispensed Refills Start Date End Date Status mirtazapine (REMERON) 30 Take 30 mg by 0 Active mg tablet mouth at bedtime. gabapentin (NEURONTIN) Take 600 mg by 0 Active 300 mg capsule mouth 3 (three) times daily. nitroglycerin 0.[address] 1 tablet 1 Bottle 0 05/17/2019 Active sublingual under the tongue tabletIndications: Type every 5 (five) 2 AR (myocardial minutes as infarction) needed for Chest [...] as of this encounter (statuses as of 11/18/2019) Active Problems Problem Noted Date Elevated blood pressure reading 07/03/2019 Tachycardia 07/03/2019 Nonobstructive atherosclerosis of coronary artery 06/18 Essential hypertension 07/03/2019 Atypical chest pain 07/03/2019 Alcohol withdrawal 07/02/2019 NSTEMI (non-ST elevated myocardial infarction) 019 Obesity (BMI 30-39.9) 05/17/2019 Type 2 AR (myocardial infarction) 05/17/2019 Secondary hypertension 05/17/2019 Depression 07/04/2012 Acute respiratory failure 07/04/2012 Tobacco abuse disorder 07/04/2012 Alcohol abuse 07/04/2012 Heroin use 07/04/2012 Anxiety disorder 07/04/2012 Suicidal ideation 09/24/2011 documented as of this encounter (statuses as of 11/18/2019) Social History Tobacco Use Types Packs/Day Years Used Date Former Smoker Smokeless Tobacco: Current User Chew Alcohol Use Drinks/Week oz/Week Comments Not Currently 12 Cans of beer 12.0 Sex Assigned at Date Recorded Not on file Job Start Date Occupation Industry Not on file Not on file Not on file Travel History Travel Start Travel End No recent travel history available. COVID-19 Exposure Response Date Recorded In the last month, have you been in contact with No / Unsure 11/18/2019 9:35 AM CDT someone who was confirmed or suspected to have Coronavirus / COVID-19? documented as of this encounter Last Filed Vital Signs Vital Sign Reading Time Taken Comments Blood Pressure 147/88 11/18/2019 9:41 AM CDT Pulse 103 11/18/2019 9:41 AM CDT Temperature 37.2 C (98.9 F) 11/18/2019 9:41 AM CDT Respiratory Rate 18 11/18/2019 9:41 AM CDT Oxygen Saturation 98% 11/18/2019 9:41 AM CDT Inhaled Oxygen Concentration - - Weight 106.6 kg (235 lb) 11/18/2019 9:41 AM CDT Height 177.8 cm (5' 10") 11/18/2019 9:41 AM CDT Body Mass Index 33.72 11/18/2019 9:41 AM CDT documented in this encounter Discharge Instructions Anselmo French DO - 11/18/2019Appear to have normal variant anatomy. If symptoms worsen follow up with primary care for reevaluation or return to emergency department. AttachmentsThe following attachments cannot be sent through Care Everywhere. Anatomy, Male Reproductive (Turkish)documented in this encounter Plan of Treatment Date Type Specialty Care Team Description 02/20/2020 Office Visit Cardiology Melchor Ledesma M D [address] [place] [address] [place] [address] 15 [phone] Health Maintenance Due Date Last Done Comments DTaP,Tdap,and Td Vaccines (1 - 1983 Tdap) Depression Screening 1984 INFLUENZA VACCINE (#1) 2020 Postponed from 01/17/2020 (Refused) PNEUMOCOCCAL 0-64 YEARS COMBINED 06/01/2020 Postponed from 1978 SERIES (1 of 1 - PPSV23) (Refuse d) documented as of this encounter Procedures Procedure Name Priority Date/Time Associated Diagnosis Comme nts NOTICE OF PRIVACY Routine 11/18/2019 9:36 AM CDT PRACTICES CONSENT/REFUSAL FOR Routine 11/18/2019 9:36 AM CDT DIAGNOSIS AND TREATMENT documented in this encounter Results Not on filedocumented in this encounter Visit Diagnoses Diagnosis 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 Medicare A & B t 2 [id number] [place] [id number] documented as of this encounter
--- NOTE | 2019-11-25 12:19 | EDPHYS ---
Physician Documentation [facility] Name: Frank Polo Age: 49 yrs Sex: Male : 1970 Arrival Date: 11/25/2019 Time: 10:42 Bed 12 Private MD: ED Physician Rosales Enrique HPI: 11/24 12:39 This 49 yrs old Male presents to ER via Ambulatory with complaints of Mouth kb Problem. 12:39 The patient presents with pt reports he noticed a red spot on his tongue, a pinpoint kb spot on cheek and raised bumps on the back of his tongue. Just wanted to get it checked. . The problem is located in the tongue. Onset: The symptoms/episode began/occurred today. Duration: The symptoms are continuous. Modifying factors: The symptoms are alleviated by nothing, the symptoms are aggravated by nothing. Associated signs and symptoms: The patient has no apparent associated signs or symptoms. Severity of symptoms: At their worst the symptoms were very mild. The patient has not experienced similar symptoms in the past. The patient has not recently seen a physician. Pt denies pain. States he just wanted to get the spots looked at and couldn't get into his dr. . Historical: - Allergies: 10:59 NKDA; sv - PMHx: 10:59 Alcoholism; Anxiety; Bipolar disorder; PE; sv - PSHx: 10:59 left ankle surgery; sv - Immunization history:: Adult Immunizations up to date. - Social history:: Smoking status: Patient reports use of chewing tobacco. ROS: 12:49 Constitutional: Negative for fever, chills, and weight loss, Cardiovascular: Negative kb for chest pain, palpitations, and edema, Respiratory: Negative for shortness of breath, cough, wheezing, and pleuritic chest pain, Abdomen/GI: Negative for abdominal pain, nausea, vomiting, diarrhea, and constipation, MS/Extremity: Negative for injury and deformity, Skin: Negative for injury, rash, and discoloration, Neuro: Negative for headache, weakness, numbness, tingling, and seizure. 12:49 ENT: Positive for spot on tongue, cheek and bumps on tongue. Exam: 12:49 Constitutional: This is a well developed, well nourished patient who is awake, alert, kb and in no acute distress. Head/Face: Normocephalic, atraumatic. ENT: Nares patent. No nasal discharge, no septal abnormalities noted. Tympanic membranes are normal and external auditory canals are clear. Oropharynx with no redness, swelling, or masses, exudates, or evidence of obstruction, uvula midline. Mucous membranes moist. Chest/axilla: Normal chest wall appearance and motion. Nontender with no deformity. No lesions are appreciated. Cardiovascular: Regular rate and rhythm with a normal S1 and S2. No gallops, murmurs, or rubs. Normal PMI, no JVD. No pulse deficits. Respiratory: Lungs have equal breath sounds bilaterally, clear to auscultation and percussion. No rales, rhonchi or wheezes noted. No increased work of breathing, no retractions or nasal flaring. Abdomen/GI: Soft, non-tender, with normal bowel sounds. No distension or tympany. No guarding or rebound. No evidence of tenderness throughout. Skin: Warm, dry with normal turgor. Normal color with no rashes, no lesions, and no evidence of cellulitis. MS/ Extremity: Pulses equal, no cyanosis. Neurovascular intact. Full, normal range of motion. Neuro: Awake and alert, GCS 15, oriented to person, place, time, and situation. Cranial nerves II-XII grossly intact. Motor strength 5/5 in all extremities. Sensory grossly intact. Cerebellar exam normal. Normal gait. Vital Signs: 11:00 BP 118 / 82; Pulse 86; Resp 16; Temp 99.5(TE); Pulse Ox 99% ; Weight 100.7 kg; Height 5 sv ft. 10 in. (177.80 cm); 11:00 Body Mass Index 31.85 (100.70 kg, 177.80 cm) sv MDM: 12:11 Patient medically screened. kb 12:17 Data reviewed: vital signs, nurses notes. Data interpreted: Pulse oximetry: on room air kb is 99 %. Interpretation: normal. Counseling: I had a detailed discussion with the patient and/or guardian regarding: the historical points, exam findings, and any diagnostic results supporting the discharge/admit diagnosis, the need for outpatient follow up, a dentist, a family practitioner, to return to the emergency department if symptoms worsen or persist or if there are any questions or concerns that arise at home. 12:50 ED course: Normal findings on exam. kb Administered Medications: No medications were administered Disposition: 15:35 Co-signature as Attending Physician, Rosales Enrique MD I agree with the assessment and kdr plan of care. Disposition: 11/25/19 12:18 Discharged to Home. Impression: Person with feared health complaint in whom no diagnosis is made. - Condition is Stable. - Medication Reconciliation Form, Thank You Letter, Antibiotic Education, Prescription Opioid Use form. - Follow up: Emergency Department; When: As needed; Reason: Worsening of condition. Follow up: Private Physician; When: 2 - 3 days; Reason: Recheck today's complaints, Continuance of care, Re-evaluation by your physician. Signatures: Maria Fernanda Bloom FNP-C MARCUS-Sulma Oneill, RN RN Rosales Penaloza MD MD [facility] Amee Nix RN RN ss Corrections: (The following items were deleted from the chart) 12:25 12:18 11/25/2019 12:18 Discharged to Home. Impression: Person with feared health ss complaint in whom no diagnosis is made. Condition is Stable. Forms are Medication Reconciliation Form, Thank You Letter, Antibiotic Education, Prescription Opioid Use. Follow up: Emergency Department; When: As needed; Reason: Worsening of condition. Follow up: Private Physician; When: 2 - 3 days; Reason: Recheck today's complaints, Continuance of care, Re-evaluation by your physician. kb
--- NOTE | 2019-11-25 12:19 | ER ---
Nurse's Notes [facility] Name: Frank Polo Age: 49 yrs Sex: Male : 1970 Arrival Date: 11/25/2019 Time: 10:42 Bed 12 Private MD: Diagnosis: Person with feared health complaint in whom no diagnosis is made Presentation: 11/24 10:56 Chief complaint: Patient states: tongue "bumps" in the very back part of it started sv last night. Denies difficulty swallowing. Reports that he also has a spot on the side of his tongue. Pt reports that he dips tobacco. Coronavirus screen: Proceed with normal triage. Patient denies a cough. Patient denies shortness of breath or difficulty breathing. Patient denies measured and/or subjective temperature greater than 100.4F prior to today's visit. Patient denies travel on a cruise ship or to a country the [facility] currently lists as an affected area. Patient denies contact with known and/or suspected case of COVID-19. Ebola Screen: No symptoms or risks identified at this time. Risk Assessment: Do you want to hurt yourself or someone else? Patient reports no desire to harm self or others. Onset of symptoms was November 24, 2019. 10:56 Method Of Arrival: Ambulatory sv 10:56 Acuity: PRANAV 4 sv 11:00 Initial Sepsis Screen: Does the patient meet any 2 criteria? No. Patient's initial sv sepsis screen is negative. Does the patient have a suspected source of infection? No. Patient's initial sepsis screen is negative. Triage Assessment: 10:59 General: Appears in no apparent distress. comfortable, Behavior is calm, cooperative, sv appropriate for age. Pain: Complains of pain in tongue. EENT: Reports pain in tongue. Neuro: Level of Consciousness is awake, alert, obeys commands, Oriented to person, place, time, situation, Gait is steady, Speech is normal. Respiratory: Airway is patent Respiratory effort is even, unlabored, Respiratory pattern is regular, symmetrical. Derm: Skin is pink, warm \\T\\ dry. Historical: - Allergies: 10:59 NKDA; sv - PMHx: 10:59 Alcoholism; Anxiety; Bipolar disorder; PE; sv - PSHx: 10:59 left ankle surgery; sv - Immunization history:: Adult Immunizations up to date. - Social history:: Smoking status: Patient reports use of chewing tobacco. Screenin:15 Abuse screen: Denies threats or abuse. Denies injuries from another. Nutritional ss screening: No deficits noted. Tuberculosis screening: Never had TB. Fall Risk None identified. Assessment: 12:15 General: Appears in no apparent distress. comfortable, Behavior is calm, cooperative. ss Pain: Denies pain. Neuro: Level of Consciousness is awake, alert, obeys commands, Oriented to person, place, time, situation. Cardiovascular: Capillary refill < 3 seconds is brisk in bilateral fingers. Respiratory: Airway is patent Respiratory effort is even, unlabored, Respiratory pattern is regular, symmetrical. GI: Patient currently denies diarrhea, nausea, vomiting. EENT: Nares are clear Oral mucosa is moist. Derm: Skin is intact, is healthy with good turgor, Skin is Skin is pink, warm \\T\\ dry. normal. Musculoskeletal: Circulation, motion, and sensation intact. Range of motion: intact in all extremities. Vital Signs: 11:00 BP 118 / 82; Pulse 86; Resp 16; Temp 99.5(TE); Pulse Ox 99% ; Weight 100.7 kg; Height 5 sv ft. 10 in. (177.80 cm); 11:00 Body Mass Index 31.85 (100.70 kg, 177.80 cm) sv ED Course: 10:42 Patient arrived in ED. ag5 10:56 Arm band placed on. sv 10:59 Triage completed. sv 12:11 Maria Fernanda Bloom FNP-C is [facility]. kb 12:11 Rosales Enrique MD is Attending Physician. kb 12:15 Patient has correct armband on for positive identification. Bed in low position. Call ss light in reach. 12:25 Amee Nix, EDISON is Primary Nurse. ss 12:25 No provider procedures requiring assistance completed. Patient did not have IV access ss during this emergency room visit. Administered Medications: No medications were administered Outcome: 12:18 Discharge ordered by . kb 12:25 Discharged to home ambulatory. ss 12:25 Condition: good 12:25 Discharge instructions given to patient, family, Instructed on discharge instructions, follow up and referral plans. Demonstrated understanding of instructions, follow-up care. 12:25 Patient left the ED. ss Signatures: Maria Fernanda Bloom FNP-C FNP-Ckb Sulma Rondon, RN RN Amee Ball, RN RN ss Aquiles Luong ag5
[2019-11-25 12:29] VITALS: BP 118/82; TEMP 99.5; O2SAT 99
== END 2019-11-25 12:25 | disposition home or self-care (01) ==
LOC: ER 10:41
DX: K13.70 Unspecified lesions of oral mucosa (principal); Z71.1 Person with feared health complaint in whom no diagnosis is made; Z72.0 Tobacco use
CPT/HCPCS: 99281

== ENCOUNTER 2021-12-28 04:54 | Observation (INO) | payer OTHER ==
--- OUTSIDE RECORDS SUMMARY | 2021-12-28 05:01 | XMS REPORT | Continuity of Care Document ---
:1970 Author Organization [facility] t Address [address] [place] [address] Care Team Providers Name Role Phone UNKNOWN, REFFERING Primary Care Physician Unavailable Indra Moura Attending Clinician Unavailable Ferine Pierce Attending Clinician Unavailable Blanquita Loja Attending Clinician Unavailable Debbie Devine Attending Clinician Unavailable Avtar MUÑOZ Attending Clinician Unavailable Avtar Pierce Attending Clinician Melchor Sanches MD Attending Clinician Dianne Morris MD Attending Clinician DIANNE MORRISHDennis Attending Clinician Unavailable MELCHOR SANCHES Attending Clinician Unavailable Doctor Unassigned, [place] Attending Clinician Unavailable Anselmo Zuniga DO Attending Clinician Chago Owen MD Attending Clinician Flori Franco RN Attending Clinician DESEAN HALE Attending Clinician Unavailable Dwight Noel MD Attending Clinician Desean Hale MD Attending Clinician ZAKI GALVAN Admitting Clinician Unavailable DESEAN HALE Admitting Clinician Unavailable Geoffrey HERZOG, Desean Admitting Clinician Payers Payer Name Policy Type Policy Number Effective Date Expiration Date S ource MEDICARE PART A [id number] 2017 \\T\\ B 00:00:00 LIZ/BORA [id number] 2021 MEDICARE ADVANTAGE 00:00:00 Problems Condition Condition Condition Status Onset Resolution Last Treating Co mments Source Name Details Category Date Date Treatment Clinician Date Elevated Elevated Disease Active Unive rs blood blood 2-16 ity of pressure pressure 00:00: [place] reading reading 00 Medical Branch Tachycardi Tachycardi Disease Active U nivers a a 2-16 ity of 00:00: [place] [facility] Nonobstruc Nonobstruc Disease Active U nivers tive tive 2-16 ity of atheroscle atheroscle 00:[place] rosis of rosis of 00 Medica l coronary coronary Branch artery artery Essential Essential Disease Active Uni vers hypertensi hypertensi 2-16 it y of on on 00:00: [place] [facility] Atypical Atypical Disease Active Unive rs chest pain chest pain 2-16 it y of 00:00: [place] [facility] Alcohol Alcohol Disease Active Univers withdrawal withdrawal 2-15 it y of 00:00: [place] [facility] 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 (myocardia 2-31 it y of l l 00:00: [place] infarction infarction 00 Me dical ) ) Branch Obesity Obesity Disease Active 2018-05 Univers (BMI (BMI 2-31 ity of 30-39.9) 30-39.9) 00:00: [place] [facility] 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 Uni vers hypertensi hypertensi 2-31 it y of on on 00:: [place] [facility] Alcohol Alcohol Disease Active Univers abuse abuse 2-17 ity of 00:: [place] [facility] 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 2-17 ity of 00:: [place] [facility] Anxiety Anxiety Disease Active Univers disorder disorder 2-17 ity of 00:: [place] [facility] Depression Depression Disease Recurre Univers nce 2-17 ity of 00:00: [place] [facility] Acute Acute Disease Active Univers respirator respirator 2-17 it y of y failure y failure 00:00: [place] [facility] Tobacco Tobacco Disease Active Univers abuse abuse 2-17 ity of disorder disorder 00:00: [place] 00 Medical Branch Suicidal Suicidal Disease Active Unive rs ideation ideation 09-23 ity of 00:00: [place] 00 [facility] Allergies, Adverse Reactions, Alerts Allergy Allergy Status Severity Reaction(s) Onset Inactive Treating Comm ents Source Name Type Date Date Clinician NO KNOWN Drug Active Univers ALLERGIE Class ity of S [facility] Social History Social Habit Start Date Stop Date Quantity Comments Source History of Chews Tobacco University of tobacco use [facility] Exposure to 2021-11-28 2021-12-08 Not sure [facility] SARS-CoV-2 00:00:00 21:20:00 [facility] (event) [place] Alcohol intake 2019-07-03 2019-07-03 1.71 /d [facility] 00:00:00 00:00:00 [facility] Tobacco use and 2019-06-01 2019-06-01 User of smokeless Un iversity of exposure 00:00:00 00:00:00 tobacco [facility] [birth year] [facility] Smoking Status Start Date Stop Date Source Ex-smoker 2019-06-01 00:00:00 2019-06-01 00:[facility] Medications Ordered Filled Start Stop Current Ordering Indication Dosage Frequency Signature Comments Components Source Medication Medication Date Date Medication? Clinician (SIG) Name Name ketorolac 2021- Yes 15mg 15 mg, Unive rs (TORADOL) 12-09 07-25 Slow IV ity of injection 04:00: 15:59 Push, [place] 15 mg 00 :00 ONCE, 1 Medical dose, On [facility] 12/08/21 at 2300, IDA aspirin 2021- Yes 324mg 324 mg, Unive rs chewable 12-09 07-25 Oral, ity of tablet 324 04:00: 15:59 ONCE, 1 [place] mg 00 :00 dose, On [facility] 12/08/21 at 2300, Routine atorvastati Yes 40mg Take 1 Univ ers n 40 mg 3-18 tablet by ity of tablet 00:00: mouth 00 daily. Medical Branch atorvastati Yes 40mg Take 1 Univ ers n 40 mg 3-18 tablet by ity of tablet 00:00: mouth 00 daily. [facility] atorvastati 0 Yes 40mg Take 1 Univ ers n 40 mg 3-18 tablet by ity of tablet 00:00: mouth [place] 00 daily. Medical Branch ATORVASTATI 2019-05 Yes TAKE 1 Univ ers N 40 mg 2-28 TABLET BY ity of tablet 00:00: MOUTH [place] 00 EVERY DAY Medical Branch ATORVASTATI 2019-05- No TAKE 1 Uni vers N 40 mg 2-28 03-17 TABLET BY ity of tablet 00:00: 00:00 MOUTH [place] 00 :00 EVERY DAY Medical Branch mirtazapine 2019-05 Yes 30mg Take 30 mg Univers (REMERON) 0-06 by mouth ity of 30 mg 13:55: at [place] tablet 41 bedtime. Medical Branch gabapentin 2019-05 Yes 600mg Take 600 Un luis alfredo (NEURONTIN) 0-06 mg by ity of 300 mg 13:55: mouth 3 [place] capsule 41 (three) Medical times Branch daily. mirtazapine 2019-05 Yes 30mg Take 30 mg Univers (REMERON) 0-06 by mouth ity of 30 mg 13:55: at [place] tablet 41 bedtime. Medical Branch gabapentin 2019-05 Yes 600mg Take 600 Un luis alfredo (NEURONTIN) 0-06 mg by ity of 300 mg 13:55: mouth 3 [place] capsule 41 (three) Medical times Branch daily. mirtazapine 2019-05 Yes 30mg Take 30 mg Univers (REMERON) 0-06 by mouth ity of 30 mg 13:55: at [place] tablet 41 bedtime. Medical Branch gabapentin 2019-05 Yes 600mg Take 600 Un luis alfredo (NEURONTIN) 0-06 mg by ity of 300 mg 13:55: mouth 3 [place] capsule 41 (three) Medical times Branch daily. mirtazapine 2019-05 Yes 30mg Take 30 mg Univers (REMERON) 0-06 by mouth ity of 30 mg 13:55: at [place] tablet 41 bedtime. Medical Branch gabapentin 2019-05 Yes 600mg Take 600 Un luis alfredo (NEURONTIN) 0-06 mg by ity of 300 mg 13:55: mouth 3 [place] capsule 41 (three) Medical times Branch daily. mirtazapine 2019-05 Yes 30mg Take 30 mg Univers (REMERON) 0-06 by mouth ity of 30 mg 08:55: at [place] tablet 41 bedtime. Medical Branch gabapentin 2020-1 Yes 600mg Take 600 Un luis alfredo (NEURONTIN) 0-06 mg by ity of 300 mg 08:55: mouth 3 [place] capsule 41 (three) Medical times Branch daily. mirtazapine 2020-1 Yes 30mg Take 30 mg Univers (REMERON) 0-06 by mouth ity of 30 mg 08:55: at [place] tablet 41 bedtime. Medical Branch gabapentin 2020- Yes 600mg Take 600 Un luis alfredo (NEURONTIN) 0-06 mg by ity of 300 mg 08:55: mouth 3 [place] capsule 41 (three) Medical times Branch daily. lamoTRIgine 2020-0 Yes 100mg Take 100 U nivers 100 mg 9-27 mg by ity of tablet 00:00: mouth at [place] 00 bedtime. Medical Branch lamoTRIgine 2020-0 Yes 100mg Take 100 U nivers 100 mg 9-27 mg by ity of tablet 00:00: mouth at [place] [address] bedtime. Medical Branch lamoTRIgine 2020-0 Yes 100mg Take 100 U nivers 100 mg 9-27 mg by ity of tablet 00:00: mouth at [place] [address] bedtime. Medical Branch lamoTRIgine 2020-0 Yes 100mg Take 100 U nivers 100 mg 9-27 mg by ity of tablet 00:00: mouth at [place] [address] bedtime. Medical Branch lamoTRIgine 2020-0 Yes 100mg Take 100 U nivers 100 mg 9-27 mg by ity of tablet 00:00: mouth at [place] [address] bedtime. Medical Branch lamoTRIgine 2020-0 Yes 100mg Take 100 U nivers 100 mg 9-27 mg by ity of tablet 00:00: mouth at [place] [address] bedtime. Medical Branch apixaban 5 2020-0 Yes 1291 5mg Take 1 Unive rs mg tablet 9-14 tablet by ity o f 00:00: mouth 2 [place] 00 (two) Medical times Branch daily. Indication s: a clot in the lung atorvastati 2020-0 Yes 40mg Take 1 Univ ers n 40 mg 9-14 tablet by ity of tablet 00:00: mouth [place] 00 daily. Medical Branch apixaban 5 2020-0 Yes 1291 5mg Take 1 Unive rs mg tablet 9-14 tablet by ity o f 00:00: mouth 2 [place] 00 (two) Medical times Branch daily. Indication s: a clot in the lung atorvastati 2020-0 Yes 40mg Take 1 Univ ers n 40 mg 9-14 tablet by ity of tablet 00:00: mouth [place] 00 daily. Medical Branch apixaban 5 2020-0 Yes 1291 5mg Take 1 Unive rs mg tablet 9-14 tablet by ity o f 00:00: mouth 2 [place] 00 (two) Medical times Branch daily. Indication s: a clot in the lung atorvastati 2020-0 Yes 40mg Take 1 Univ ers n 40 mg 9-14 tablet by ity of tablet 00:00: mouth [place] 00 daily. Medical Branch atorvastati 2020-0 Yes 40mg Take 1 Univ ers n 40 mg 9-14 tablet by ity of tablet 00:00: mouth [place] 00 daily. Medical Branch atorvastati 2020-0 Yes 40mg Take 1 Univ ers n 40 mg 9-14 tablet by ity of tablet 00:00: mouth [place] 00 daily. Medical Branch atorvastati 2020-0 2020- No 40mg Take 1 Uni vers n 40 mg 9-14 12-28 tablet by ity of tablet 00:00: 00:00 mouth [place] 00 :00 daily. Medical Branch apixaban 5 2020-0 2020- No 1291 5mg Take 1 Univ ers mg tablet 9-14 10-06 tablet by ity of 00:00: 00:00 mouth 2 [place] 00 :00 (two) Medical times Branch daily. Indication s: a clot in the lung apixaban 5 2020-0 2020- No 1291 5mg Take 1 Univ ers mg tablet 9-14 10-06 tablet by ity of 00:00: 00:00 mouth 2 [place] 00 :00 (two) Medical times Branch daily. Indication s: a clot in the lung metoprolol 2020-0 Yes 50mg Take 1 Unive rs tartrate 50 4-01 tablet by ity of mg tablet 00:00: mouth 2 [place] 00 (two) Medical times Branch daily. atorvastati 2020-0 Yes 40mg Take 1 Univ ers n 40 mg 4-01 tablet by ity of tablet 00:00: mouth [place] 00 daily. Medical Branch apixaban 5 2020-0 Yes 1291 5mg Take 1 Unive rs mg tablet 4-01 tablet by ity o f 00:00: mouth 2 [place] 00 (two) Medical times Branch daily. Indication s: a clot in the lung atorvastati 2020-0 Yes 40mg Take 1 Univ ers n 40 mg 4-01 tablet by ity of tablet 00:00: mouth [place] 00 daily. Medical Branch apixaban 5 2020-0 Yes 1291 5mg Take 1 Unive rs mg tablet 4-01 tablet by ity o f 00:00: mouth 2 [place] 00 (two) Medical times Branch daily. Indication s: a clot in the lung atorvastati 2020-0 Yes 40mg Take 1 Univ ers n 40 mg 4-01 tablet by ity of tablet 00:00: mouth [place] 00 daily. Medical Branch apixaban 5 2020-0 Yes 1291 5mg Take 1 Unive rs mg tablet 4-01 tablet by ity o f 00:00: mouth 2 [place] 00 (two) Medical times Branch daily. Indication s: a clot in the lung atorvastati 2020-0 Yes 40mg Take 1 Univ ers n 40 mg 4-01 tablet by ity of tablet 00:00: mouth [place] 00 daily. Medical Branch apixaban 5 2020-0 Yes 1291 5mg Take 1 Unive rs mg tablet 4-01 tablet by ity o f 00:00: mouth 2 [place] 00 (two) Medical times Branch daily. Indication s: a clot in the lung atorvastati 2020-0 Yes 40mg Take 1 Univ ers n 40 mg 4-01 tablet by ity of tablet 00:00: mouth [place] 00 daily. Medical Branch apixaban 5 2020-0 Yes 1291 5mg Take 1 Unive rs mg tablet 4-01 tablet by ity o f 00:00: mouth 2 00 (two) Medical times Branch daily. Indication s: a clot in the lung atorvastati 2020-0 2020- No 40mg Take 1 Uni vers n 40 mg -01-29 tablet by ity of tablet 00:00: 00:00 mouth [place] 00 :00 daily. Medical Branch apixaban 5 2020-0 2020- No 1291 5mg Take 1 Univ ers mg tablet -14 tablet by ity of 00:00: 00:00 mouth 2 [place] 00 :00 (two) Medical times Branch daily. Indication s: a clot in the lung metoprolol 2020-0 2020- No 50mg Take 1 Univ ers tartrate 50 -05 22- tablet by it y of mg tablet 00:00: 00:00 mouth 2 [place] :[place] (two) Medical times Branch daily. mirtazapine 2020-0 Yes 30mg Take 30 mg Univers (REMERON) 2-18 by mouth ity of 30 mg 00:46: at [place] tablet 49 bedtime. Medical Branch gabapentin 2020-0 Yes 600mg Take 600 Un l[facility] al[facility] (NEURONTIN) 2-18 mg by ity of 300 mg 00:46: mouth 3 [place] capsule 49 (three) Medical times Branch daily. mirtazapine 2020-0 Yes 30mg Take 30 mg Univers (REMERON) 2-18 by mouth ity of 30 mg 00:46: at [place] tablet 49 bedtime. Medical Branch gabapentin 2020-0 Yes 600mg Take 600 Un luis alfred[facility] (NEURONTIN) 2-18 mg by ity of 300 mg 00:46: mouth 3 [place] capsule 49 (three) Medical times Branch daily. mirtazapine 2020-0 Yes 30mg Take 30 mg Univers (REMERON) 2-18 by mouth ity of 30 mg 00:46: at [place] tablet 49 bedtime. Medical Branch gabapentin 2020-0 Yes 600mg Take 600 Un luis al[facility] (NEURONTIN) 2-18 mg by ity of 300 mg 00:46: mouth 3 [place] capsule 49 (three) Medical times Branch daily. mirtazapine 2020-0 Yes 30mg Take 30 mg Univers (REMERON) 2-18 by mouth ity of 30 mg 00:46: at [place] tablet 49 bedtime. Medical Branch gabapentin 2020-0 Yes 600mg Take 600 Un luis al[facility] (NEURONTIN) 2-18 mg by ity of 300 mg 00:46: mouth 3 [place] capsule 49 (three) Medical times Branch daily. mirtazapine 2020-0 Yes 30mg Take 30 mg Univers (REMERON) 2-18 by mouth ity of 30 mg 00:46: at [place] tablet 49 bedtime. Medical Branch gabapentin 2020-0 Yes 600mg Take 600 Un luis [facility] (NEURONTIN) 2-18 mg by ity of 300 mg 00:46: mouth 3 [place] capsule 49 (three) Medical times Branch daily. mirtazapine 2020-0 Yes 30mg Take 30 mg Univers (REMERON) 2-18 by mouth ity of 30 mg 00:46: at [place] tablet 49 bedtime. Medical Branch gabapentin 2020-0 Yes 600mg Take 600 Un luis alfred[facility] (NEURONTIN) 2-18 mg by ity of 300 mg 00:46: mouth 3 [place] capsule 49 (three) Medical times Branch daily. mirtazapine 2020-0 Yes 30mg Take 30 mg Univers (REMERON) 2-18 by mouth ity of 30 mg 00:46: at [place] tablet 49 bedtime. Medical Branch gabapentin 2020-0 Yes 600mg Take 600 Un luis al[facility] (NEURONTIN) 2-18 mg by ity of 300 mg 00:46: mouth 3 [place] capsule 49 (three) Medical times Branch daily. mirtazapine 2020-0 Yes 30mg Take 30 mg Univers (REMERON) 2-18 by mouth ity of 30 mg 00:46: at [place] tablet 49 bedtime. Medical Branch gabapentin 2020-0 Yes 600mg Take 600 Un luis alfredo (NEURONTIN) 2-18 mg by ity of 300 mg 00:46: mouth 3 [place] capsule 49 (three) Medical times Branch daily. mirtazapine 2020-0 Yes 30mg Take 30 mg Univers (REMERON) 2-18 by mouth ity of 30 mg 00:46: at [place] tablet 49 bedtime. Medical Branch gabapentin 2020-0 Yes 600mg Take 600 Un luis alfredo (NEURONTIN) 2-18 mg by ity of 300 mg 00:46: mouth 3 [place] capsule 49 (three) Medical times Branch daily. mirtazapine 2020-0 Yes 30mg Take 30 mg Univers (REMERON) 2-18 by mouth ity of 30 mg 00:46: at [place] tablet 49 bedtime. Medical Branch gabapentin 2020-0 Yes 600mg Take 600 Un luis al[facility]o (NEURONTIN) 2-18 mg by ity of 300 mg 00:46: mouth 3 [place] capsule 49 (three) Medical times Branch daily. mirtazapine 2020-0 Yes 30mg Take 30 mg Univers (REMERON) 2-18 by mouth ity of 30 mg 00:46: at [place] tablet 49 bedtime. Medical Branch gabapentin 2020-0 Yes 600mg Take 600 Un luis al[facility]o (NEURONTIN) 2-18 mg by ity of 300 mg 00:46: mouth 3 [place] capsule 49 (three) Medical times Branch daily. mirtazapine 2020-0 Yes 30mg Take 30 mg Univers (REMERON) 2-18 by mouth ity of 30 mg 00:46: at [place] tablet 49 bedtime. Medical Branch gabapentin 2020-0 Yes 600mg Take 600 Un luis alfredo (NEURONTIN) 2-18 mg by ity of 300 mg 00:46: mouth 3 [place] capsule 49 (three) Medical times Branch daily. mirtazapine 2020-0 Yes 30mg Take 30 mg Univers (REMERON) 2-18 by mouth ity of 30 mg 00:46: at [place] tablet 49 bedtime. Medical Branch gabapentin 2020-0 Yes 600mg Take 600 Un luis al[facility] (NEURONTIN) 2-18 mg by ity of 300 mg 00:46: mouth 3 [place] capsule 49 (three) Medical times Branch daily. mirtazapine 2020-0 Yes 30mg Take 30 mg Univers (REMERON) 2-18 by mouth ity of 30 mg 00:46: at [place] tablet 49 bedtime. Medical Branch gabapentin 2020-0 Yes 600mg Take 600 Un luis al[facility] (NEURONTIN) 2-18 mg by ity of 300 mg 00:46: mouth 3 [place] capsule 49 (three) Medical times Branch daily. foLIC acid 2020-0 2020- No [id number] 1mg Take 1 Univers 1 mg tablet 2-18 03-20 tablet by it y of 00:00: 04:59 mouth [place] 00 :00 daily for Medical 30 days. [place] thiamine 2020-0 2020- No [id number] 100mg Take 1 Univers 100 mg 2-18 03-20 tablet by ity of tablet 00:00: 04:59 mouth [place] 00 :00 daily for Medical 30 days. [place] foLIC acid 2020-0 2020- No [id number] 1mg Take 1 Univers 1 mg tablet 2-18 03-20 tablet by it y of 00:00: 04:59 mouth [place] 00 :00 daily for Medical 30 days. [place] thiamine 2020-0 2020- No [id number] 100mg Take 1 Univers 100 mg 2-18 03-20 tablet by ity of tablet 00:00: 04:59 mouth [place] 00 :00 daily for Medical 30 days. [place] foLIC acid 2020-0 2020- No [id number] 1mg Take 1 Univers 1 mg tablet 2-18 03-20 tablet by it y of 00:00: 04:59 mouth [place] 00 :00 daily for Medical 30 days. [place] thiamine 2020-0 2020- No [id number] 100mg Take 1 Univers 100 mg 2-18 03-20 tablet by ity of tablet 00:00: 04:59 mouth [place] 00 :00 daily for Medical 30 days. [place] foLIC acid 2019-0 2020- No [id number] 1mg Take 1 Univers 1 mg tablet 2-18 03-20 tablet by it y of 00:00: 04:59 mouth [place] 00 :00 daily for Medical 30 days. Branch thiamine 2019-0 2020- No [id number] 100mg Take 1 Univers 100 mg 2-18 03-20 tablet by ity of tablet 00:00: 04:59 mouth [place] 00 :00 daily for Medical 30 days. Branch foLIC acid 2019- 2020- No [id number] 1mg Take 1 Univers 1 mg tablet 2-18 03-20 tablet by it y of 00:00: 04:59 mouth [place] 00 :00 daily for Medical 30 days. Branch thiamine 2019-0 2020- No [id number] 100mg Take 1 Univers 100 mg 2-18 03-20 tablet by ity of tablet 00:00: 04:59 mouth [place] 00 :00 daily for Medical 30 days. Branch foLIC acid 2019-2019- No [id number] 1mg Take 1 Univers 1 mg tablet 2-18 03-20 tablet by it y of 00:00: 04:59 mouth [place] 00 :00 daily for Medical 30 days. Branch thiamine 2019-0 2020- No [id number] 100mg Take 1 Univers 100 mg 2-18 03-20 tablet by ity of tablet 00:00: 04:59 mouth [place] 00 :00 daily for Medical 30 days. Branch QUEtiapine 2019- No 300mg Take 300 U nivers (SEROQUEL) 2-04 07-17 mg by ity of 300 mg 22:43: 00:00 mouth [place] tablet 15 :00 every Medical evening. Branch hydralAZINE Yes 10mg 10 mg, Univ ers (APRESOLINE 2-17 Intravenou it y of ) injection 22:39: s, PRN - [place] 10 mg 29 SEE Medical INSTRUCTIO Branch NS, Starting Thu07/04/19 at 1639, Until Discontinu ed, Routine, Hypertensi ve emergency, Hypertensi on, Q4h for SBP>160 or DBP>100 oxazepam 2019-2019- No 15mg 15 mg, Univer s (SERAX) 2-17 -18 Oral, ity of capsule 15 20:00: 13:59 Q12H, 2 [place] mg 00 :00 doses, Medical First dose Branch on 07/04/20 at 1400, Last dose on Thu07/04/19 at 2000, Routine morpHINE 2020-0 Yes 2mg 2 mg, Slow Uni vers injection 2 2-17 IV Push, ity of mg 18:59: Q4HPRN, [place] 52 Starting Medical Mon Branch 07/04/19 at 1259, Until Discontinu ed, Routine, Pain (scale 7-10) lisinopril 2020-0 Yes 10mg 10 mg, Unive rs (PRINIVIL,Z 2-17 Oral, ity of ESTRIL) 18:30: DAILY, [place] tablet 10 00 First dose Medi johnson mg on Mon Branch 07/04/19 at 1230, Until Discontinu ed, Routine LORazepam 1 2020-0 Yes [id number] 1mg Take 1 Univers mg tablet 2-17 tablet by ity o f 00:00: mouth 3 [place] 00 (three) Medical times Branch daily as needed for Anxiety or Agitation. traMADol 50 2020-0 Yes [id number] 50mg Take 1 Univers mg tablet 2-17 [id number] tablet by ity of 00:00: mouth [place] 00 every 6 Medical (six) Branch hours as needed for Pain (scale 4-6). LORazepam 1 2020-0 Yes [id number] 1mg Take 1 Univers mg tablet 2-17 tablet by ity o f 00:00: mouth 3 [place] 00 (three) Medical times Branch daily as needed for Anxiety or Agitation. traMADol 50 2020-0 Yes [id number] 50mg Take 1 Univers mg tablet 2-17 [id number] tablet by ity of 00:00: mouth [place] 00 every 6 Medical (six) Branch hours as needed for Pain (scale 4-6). LORazepam 1 2020-0 Yes [id number] 1mg Take 1 Univers mg tablet 2-17 tablet by ity o f 00:00: mouth 3 [place] 00 (three) Medical times Branch daily as needed for Anxiety or Agitation. traMADol 50 2020-0 Yes [id number] 50mg Take 1 Univers mg tablet 2-17 [id number] tablet by ity of 00:00: mouth [place] 00 every 6 Medical (six) Branch hours as needed for Pain (scale 4-6). LORazepam 1 2020-0 Yes [id number] 1mg Take 1 Univers mg tablet 2-17 tablet by ity o f 00:00: mouth 3 [place] 00 (three) Medical times Branch daily as needed for Anxiety or Agitation. traMADol 50 2020-0 Yes [id number] 50mg Take 1 Univers mg tablet 2-17 [id number] tablet by ity of 00:00: mouth [place] 00 every 6 Medical (six) Branch hours as needed for Pain (scale 4-6). LORazepam 1 2020-0 Yes [id number] 1mg Take 1 Univers mg tablet 2-17 tablet by ity o f 00:00: mouth 3 [place] 00 (three) Medical times Branch daily as needed for Anxiety or Agitation. traMADol 50 2020-0 Yes [id number] 50mg Take 1 Univers mg tablet 2-17 [id number] tablet by ity of 00:00: mouth [place] 00 every 6 Medical (six) Branch hours as needed for Pain (scale 4-6). LORazepam 1 2020-0 Yes [id number] 1mg Take 1 Univers mg tablet 2-17 tablet by ity o f 00:00: mouth 3 00 (three) Medical times Branch daily as needed for Anxiety or Agitation. traMADol 50 2020-0 Yes [id number] 50mg Take 1 Univers mg tablet 2-17 [id number] tablet by ity of 00:00: mouth [place] 00 every 6 Medical (six) Branch hours as needed for Pain (scale 4-6). LORazepam 1 2020-0 Yes [id number] 1mg Take 1 Univers mg tablet 2-17 tablet by ity o f 00:00: mouth 3 00 (three) Medical times Branch daily as needed for Anxiety or Agitation. traMADol 50 2020-0 Yes [id number] 50mg Take 1 Univers mg tablet 2-17 [id number] tablet by ity of 00:00: mouth [place] 00 every 6 Medical (six) Branch hours as needed for Pain (scale 4-6). LORazepam 1 2020-0 Yes [id number] 1mg Take 1 Univers mg tablet 2-17 tablet by ity o f 00:00: mouth 3 [place] 00 (three) Medical times Branch daily as needed for Anxiety or Agitation. traMADol 50 2020-0 Yes [id number] 50mg Take 1 Univers mg tablet 2-17 [id number] tablet by ity of 00:00: mouth [place] 00 every 6 Medical (six) Branch hours as needed for Pain (scale 4-6). LORazepam 1 2020-0 Yes [id number] 1mg Take 1 Univers mg tablet 2-17 tablet by ity o f 00:00: mouth 3 [place] 00 (three) Medical times Branch daily as needed for Anxiety or Agitation. traMADol 50 2020-0 Yes [id number] 50mg Take 1 Univers mg tablet 2-17 [id number] tablet by ity of 00:00: mouth [place] 00 every 6 Medical (six) Branch hours as needed for Pain (scale 4-6). LORazepam 1 2020-0 Yes [id number] 1mg Take 1 Univers mg tablet 2-17 tablet by ity o f 00:00: mouth 3 (three) Medical times Branch daily as needed for Anxiety or Agitation. traMADol 50 2020-0 Yes [id number] 50mg Take 1 Univers mg tablet 2-17 [id number] tablet by ity of 00:00: mouth [place] 00 every 6 Medical (six) Branch hours as needed for Pain (scale 4-6). LORazepam 1 2020-0 Yes [id number] 1mg Take 1 Univers mg tablet 2-17 tablet by ity o f 00:00: mouth 3 (three) Medical times Branch daily as needed for Anxiety or Agitation. traMADol 50 2020-0 Yes [id number] 50mg Take 1 Univers mg tablet 2-17 [id number] tablet by ity of 00:00: mouth [place] 00 every 6 Medical (six) Branch hours as needed for Pain (scale 4-6). LORazepam 1 2020-0 Yes [id number] 1mg Take 1 Univers mg tablet 2-17 tablet by ity o f 00:00: mouth 3 (three) Medical times Branch daily as needed for Anxiety or Agitation. traMADol 50 2020-0 Yes [id number] 50mg Take 1 Univers mg tablet 2-17 [id number] tablet by ity of 00:00: mouth [place] 00 every 6 Medical (six) Branch hours as needed for Pain (scale 4-6). LORazepam 1 2020-0 Yes [id number] 1mg Take 1 Univers mg tablet 2-17 tablet by ity o f 00:00: mouth 3 (three) Medical times Branch daily as needed for Anxiety or Agitation. traMADol 50 2020-0 Yes [id number] 50mg Take 1 Univers mg tablet 2-17 [id number] tablet by ity of 00:00: mouth [place] 00 every 6 Medical (six) Branch hours as needed for Pain (scale 4-6). LORazepam 1 2020-0 Yes [id number] 1mg Take 1 Univers mg tablet 2-17 tablet by ity o f 00:00: mouth 3 [place] 00 (three) Medical times Branch daily as needed for Anxiety or Agitation. traMADol 50 2020-0 Yes [id number] 50mg Take 1 Univers mg tablet 2 [id number] tablet by ity of 00:00: mouth [place] 00 every 6 Medical (six) Branch hours as needed for Pain (scale 4-6). LORazepam 1 2019- 2020- No [id number] 1mg Take 1 [facility] mg tablet 2-02-20 tablet by ity of 00:00: 00:00 mouth 3 [place] 00 :00 (three) Medical times Branch daily as needed for Anxiety or Agitation. traMADol 50 2019-0 2020- No [id number] 50mg Take 1 [facility] mg tablet 2-03 03- [id number] tablet by it y of 00:00: 00:00 mouth [place] 00 :00 every 6 Medical (six) Branch hours as needed for Pain (scale 4-6). LORazepam 1 2019- 2020- No [id number] 1mg Take 1 [facility] mg tablet 202-20 tablet by ity of 00:00: 00:00 mouth 3 [place] 00 :00 (three) Medical times Branch daily as needed for Anxiety or Agitation. traMADol 50 2019-0 2020- No [id number] 50mg Take 1 [facility] mg tablet 07-04 [id number] tablet by it y of 00:00: 00:00 mouth [place] 00 :00 every 6 Medical (six) Branch hours as needed for Pain (scale 4-6). lisinopril 2019- 2020- No [id number] 20mg Take 1 [facility] 20 mg 2-17 -19 tablet by ity of tablet 00:00: 04:59 mouth [place] 00 :00 daily for Medical 30 days. Branch lisinopril 2020-0 2020- No [id number] 20mg Take 1 [facility] 20 mg 2-17 -19 tablet by ity of tablet 00:00: 04:59 mouth [place] 00 :00 daily for Medical 30 days. Branch lisinopril 2020-0 2020- No [id number] 20mg Take 1 [facility] 20 mg 2-17 -19 tablet by ity of tablet 00:00: 04:59 mouth [place] 00 :00 daily for Medical 30 days. Branch lisinopril 2020-0 2020- No [id number] 20mg Take 1 [facility] 20 mg 2-17 -19 tablet by ity of tablet 00:00: 04:59 mouth [place] 00 :00 daily for Medical 30 days. [place] lisinopril 2020-0 2020- No [id number] 20mg Take 1 [facility] 20 mg 2-17 -19 tablet by ity of tablet 00:00: 04:59 mouth [place] 00 :00 daily for Medical 30 days. [place] lisinopril 2020-0 2020- No [id number] 20mg Take 1 [facility] 20 mg 2-17 -19 tablet by ity of tablet 00:00: 04:59 mouth [place] 00 :00 daily for Medical 30 days. [place] KCL 2020-0 2020- No 40meq 40 mEq, Univers (KLOR-CON 2-16 02-16 Oral, ity of M20) tablet 23:30: 23:12 ONCE, 1 [place] 40 mEq 00 :00 dose, [facility] 07/03/19 at Branch 1730, Routine enoxaparin 2020-0 Yes 40mg 40 mg, Unive rs (LOVENOX) 2-16 Subcutaneo ity of injection 15:00: us, DAILY, [place] 40 mg 00 First dose Medical on [facility] 07/03/19 at 0900, Until Discontinu ed, Routine thiamine 2020-0 Yes 100mg 100 mg, Unive rs (VITAMIN 2-16 Oral, ity of B1) tablet 15:00: DAILY, [place] 100 mg 00 First dose Medical on [facility] 07/03/19 at 0900, Until Discontinu ed, Routine thiamine 2020-0 Yes IV Univers (VITAMIN 2-16 Infusion, ity of B1) 100 mg, 15:00: at 125 [place] foLIC acid 00 mL/hr, Medical (FOLATE) 1 DAILY, Branch mg, First dose multivitami on [place] [facility] adult 07/03/19 at (INFUVITE 0900, ADULT) Until 3,300 unit- Discontinu 150 mcg/10 ed, 1,000 mL 10 mL in mL NaCl 0.45% (1/2NS) IV Solution aspirin 2020-0 Yes 81mg 81 mg, Univers chewable 2-16 Oral, ity of tablet 81 15:00: DAILY, [place] mg 00 First dose Medical on [facility] 07/03/19 at 0900, Until Discontinu ed, Routine foLIC acid 2020-0 Yes 1mg 1 mg, Univer s (FOLATE) 2-16 Oral, ity of tablet 1 mg 15:00: DAILY, [place] 00 First dose Medical on [place] Branch 07/03/19 at 0900, Until Discontinu ed, Routine LORazepam 2019-0 Yes 1mg 1 mg, Slow Un luis alfred[facility] (ATIVAN) 2-16 IV Push, ity of injection 1 03:05: Q4HPRN, [place] as mg 01 Starting Medical [facility] 07/02/19 at 2105, Until Discontinu ed, Routine, Anxiety, Agitation, Sedation mirtazapine 2019-0 Yes 30mg 30 mg, Univ ers (REMERON) 2-16 Oral, QHS, ity of tablet 30 03:00: First dose [place] mg 00 on [facility] 07/02/19 at Branch 2100, Until Discontinu ed, Routine atorvastati 2019-0 Yes 40mg 40 mg, Univ ers n (LIPITOR) 2-16 Oral, QHS, it y of tablet 40 03:00: First dose [place] mg 00 on [facility] 07/02/19 at Branch 2100, Until Discontinu ed, Routine metoprolol 2019-0 Yes 50mg 50 mg, Unive rs tartrate 2-16 Oral, BID, ity o f (LOPRESSOR) 02:00: First dose [place] tablet 50 00 on [facility] 07/02/19 at Branch 2000, Until Discontinu ed, Routine gabapentin 2019-0 Yes 600mg 600 mg, Uni vers (NEURONTIN) 2-16 Oral, TID, it y of capsule 600 02:00: First dose [place] mg 00 on [facility] 07/02/19 at Branch 2000, Until Discontinu ed, Routine HYDROmorpho 2019-0 2020- No 1mg 1 mg, Slow Univers ne 07-02 IV Push, ity of (DILAUDID) 22:49: 19:00 Q4HPRN, [place] as injection 1 40 :08 Starting Medi johnson mg [facility] 07/02/19 at 1649, Until [facility] 07/04/19 at 1300, Routine, Pain (scale 7-10)
U se approved by (Faculty): ADC PROVIDER FENTanyl PF 2019-0 2020- No 75ug 75 mcg, Un luis alfredo (SUBLIMAZE 07-02 Slow IV ity o f (PF)) 21:30: 20:33 Push, [place] injection 00 :00 ONCE, 1 Medical 75 mcg dose, Sat Branch 07/02/19 at 1530, STAT acetaminoph 2019-0 2020- No 1000mg 1,000 mg, Univers en 07-02- Oral, ity of (TYLENOL) 21:15: 20:08 ONCE, 1 [place] tablet 00 :00 dose, Sat Medical 1,000 mg 07/02/19 at [facility] h 1515, IDA LORazepam 2019-0 2020- No 1mg 1 mg, Univer s (ATIVAN) 07-02- Oral, ity of tablet 1 mg 21:15: 20:08 ONCE, 1 [place] 00 :00 dose, Sat Medical 07/02/19 at Branch 1515, IDA ondansetron 2019-0 Yes 4mg 4 mg, Slow Univers (ZOFRAN 2-15 IV Push, ity of (PF)) 21:11: Q6HPRN, [place] injection 4 50 Starting Medi johnson mg Sat Branch 07/02/19 at 1511, Until Discontinu ed, Routine, Nausea and Vomiting (N/V) morpHINE 2019-0 2020- No 2mg 2 mg, Slow Un l[facility] alfred[facility] injection 2 07-02-16 IV Push, ity of mg 21:11: 03:09 [facility], [place] 40 :25 Starting Medical Sat Branch 07/02/19 at 1511, Until 07/02/19 at 2109, Routine, Pain (scale 7-10) HYDROcodone 2019-0 2020- No 1{tbl} 1 tablet, Univers -acetaminop 07-02 Oral, ity of hen (NORCO 21:11: 21:10 Q6HPRN, [place] as 5) 5-325 mg 38 :38 Starting Medi johnson tablet 1 Sat Branch tablet 07/02/19 at 1511, Until 07/04/19 at 1510, Routine, Pain (scale 4-6) acetaminoph 2019-0 Yes 650mg 650 mg, Un luis alfredo en 2-15 Oral, ity of (TYLENOL) 21:11: Q6HP, [place] tablet 650 35 Starting Medic al mg Sat Branch 07/02/19 at 1511, Until Discontinu ed, Routine, Pain (scale 1-3) ketorolac 2019-0 2020- No 30mg 30 mg, Unive rs (TORADOL) 2-02 07-15 Slow IV ity of injection 19:15: 18:09 Push, [place] 30 mg 00 :00 ONCE, 1 Medical dose, Sat Branch 07/02/19 at 1315, IDA
[facility] : DWIGHT NOEL LORazepam 2019-0 2020- No 1mg 1 mg, Slow U nivers (ATIVAN) 2-02 07-15 IV Push, ity of injection 1 19:00: 18:10 ONCE, 1 [place] mg 00 :00 dose, Sat Medical 07/02/19 at Branch 1300, STAT mirtazapine 2020-0 Yes 30mg Take 30 mg Univers (REMERON) 1-15 by mouth ity of 30 mg 19:51: at [place] tablet 43 bedtime. Medical Branch gabapentin 2020-0 Yes 600mg Take 600 Un l[facility] alfred[facility] (NEURONTIN) 1-15 mg by ity of 300 mg 19:51: mouth 3 [place] capsule 43 (three) Medical times Branch daily. QUEtiapine 2020-0 Yes 300mg Take 300 Un luis alfred[facility] (SEROQUEL) 1-15 mg by ity of 300 mg 19:51: mouth [place] tablet 43 every Medical evening. Branch mirtazapine 2020-0 Yes 30mg Take 30 mg Univers (REMERON) 1-15 by mouth ity of 30 mg 19:51: at [place] tablet 43 bedtime. Medical Branch gabapentin 2020-0 Yes 600mg Take 600 Un luis alfredo (NEURONTIN) 1-15 mg by ity of 300 mg 19:51: mouth 3 [place] capsule 43 (three) Medical times Branch daily. QUEtiapine 2020-0 Yes 300mg Take 300 Un luis alfred[facility] (SEROQUEL) 1-15 mg by ity of 300 mg 19:51: mouth [place] tablet 43 every Medical evening. Branch mirtazapine 2020-0 Yes 30mg Take 30 mg Univers (REMERON) 1-15 by mouth ity of 30 mg 19:51: at [place] tablet 43 bedtime. Medical Branch gabapentin 2020-0 Yes 600mg Take 600 Un l[facility] alfred[facility] (NEURONTIN) 1-15 mg by ity of 300 mg 19:51: mouth 3 [place] capsule 43 (three) Medical times Branch daily. QUEtiapine 2020-0 Yes 300mg Take 300 Un luis alfred[facility] (SEROQUEL) 1-15 mg by ity of 300 mg 19:51: mouth [place] tablet 43 every Medical evening. Branch aspirin 81 2020-0 Yes [id number] 81mg Take 1 U nivers mg chewable 1-01 tablet by ity of tablet 00:00: mouth [place] 00 daily. Medical Branch aspirin 81 2020-0 Yes [id number] 81mg Take 1 U nivers mg chewable 1-01 tablet by ity of tablet 00:00: mouth [place] 00 daily. Medical Branch aspirin 81 2020-0 Yes [id number] 81mg Take 1 U nivers mg chewable 1-01 tablet by ity of tablet 00:00: mouth [place] 00 daily. Medical Branch aspirin 81 2020-0 Yes [id number] 81mg Take 1 U nivers mg chewable 1-01 tablet by ity of tablet 00:00: mouth [place] 00 daily. Medical Branch aspirin 81 2020-0 Yes [id number] 81mg Take 1 U nivers mg chewable 1-01 tablet by ity of tablet 00:00: mouth [place] 00 daily. Medical Branch aspirin 81 2020-0 Yes [id number] 81mg Take 1 U nivers mg chewable 1-01 tablet by ity of tablet 00:00: mouth [place] 00 daily. Medical Branch aspirin 81 2020-0 Yes [id number] 81mg Take 1 U nivers mg chewable 1-01 tablet by ity of tablet 00:00: mouth [place] 00 daily. Medical Branch aspirin 81 2020-0 Yes [id number] 81mg Take 1 U nivers mg chewable 1-01 tablet by ity of tablet 00:00: mouth [place] 00 daily. Medical Branch aspirin 81 2020-0 Yes [id number] 81mg Take 1 U nivers mg chewable 1-01 tablet by ity of tablet 00:00: mouth [place] 00 daily. Medical Branch aspirin 81 2020-0 2020- No [id number] 81mg Take 1 [facility] mg chewable 1-01 04-01 tablet by it y of tablet 00:00: 00:00 mouth [place] 00 :00 daily. Medical Branch lisinopril 2020-0 2020- No [id number] 2.5mg Take 1 Univers 2.5 mg 1-01 -15 tablet by ity of tablet 00:00: 00:00 mouth [place] 00 :00 daily. Medical Branch lisinopril 2020-0 2020- No [id number] 2.5mg Take 1 Univers 2.5 mg 1-01 -15 tablet by ity of tablet 00:00: 00:00 mouth [place] 00 :00 daily. Medical Branch atorvastati 2018-05 Yes [id number] 40mg Take 1 Univers n 40 mg 2-31 tablet by ity of tablet 00:00: mouth at [place] 00 bedtime. Medical Branch nitroglycer 2018-[id number] 1 Univers in 0.3 mg 2-31 tablet ity of sublingual 00:00: under the [place] tablet 00 tongue Medical every 5 Branch (five) minutes as needed for Chest pain. metoprolol 2018-05 Yes [id number] 50mg Take 1 U nivers tartrate 50 2-31 tablet by ity of mg tablet 00:00: mouth 2 00 (two) Medical times Branch daily. atorvastati 2018-05 Yes [id number] 40mg Take 1 Univers n 40 mg 2-31 tablet by ity of tablet 00:00: mouth at [place] 00 bedtime. Medical Branch nitroglycer 2018-[id number] 1 Univers in 0.3 mg 2-31 tablet ity of sublingual 00:00: under the [place] tablet 00 tongue Medical every 5 Branch (five) minutes as needed for Chest pain. metoprolol 2018-05 Yes [id number] 50mg Take 1 U nivers tartrate 50 2-31 tablet by ity of mg tablet 00:00: mouth 2 (two) Medical times Branch daily. atorvastati 2018-05 Yes [id number] 40mg Take 1 Univers n 40 mg 2-31 tablet by ity of tablet 00:00: mouth at [place] 00 bedtime. Medical Branch nitroglycer 2018-[id number] 1 Univers in 0.3 mg 2-31 tablet ity of sublingual 00:00: under the [place] tablet 00 tongue Medical every 5 Branch (five) minutes as needed for Chest pain. metoprolol 2018-05 Yes [id number] 50mg Take 1 U nivers tartrate 50 2-31 tablet by ity of mg tablet 00:00: mouth 2 [place] (two) Medical times Branch daily. atorvastati 2018-05 Yes [id number] 40mg Take 1 Univers n 40 mg 2-31 tablet by ity of tablet 00:00: mouth at [place] [address] bedtime. Medical Branch nitroglycer 2018-[id number] 1 Univers in 0.3 mg 2-31 tablet ity of sublingual 00:00: under the [place] tablet 00 tongue Medical every 5 Branch (five) minutes as needed for Chest pain. metoprolol 2018-05 Yes [id number] 50mg Take 1 U nivers tartrate 50 2-31 tablet by ity of mg tablet 00:00: mouth 2 [place] (two) Medical times Branch daily. atorvastati 2018-05 Yes [id number] 40mg Take 1 Univers n 40 mg 2-31 tablet by ity of tablet 00:00: mouth at [place] 00 bedtime. Medical Branch nitroglycer 2018-[id number] 1 Univers in 0.3 mg 2-31 tablet ity of sublingual 00:00: under the [place] tablet 00 tongue Medical every 5 Branch (five) minutes as needed for Chest pain. metoprolol 2018-05 Yes [id number] 50mg Take 1 U nivers tartrate 50 2-31 tablet by ity of mg tablet 00:00: mouth 2 [place] (two) Medical times Branch daily. atorvastati 2018-05 Yes [id number] 40mg Take 1 Univers n 40 mg 2-31 tablet by ity of tablet 00:00: mouth at [place] [address] bedtime. Medical Branch nitroglycer 2018-[id number] 1 Univers in 0.3 mg 2-31 tablet ity of sublingual 00:00: under the [place] tablet 00 tongue Medical every 5 Branch (five) minutes as needed for Chest pain. nitroglycer 2018-[id number] 1 Univers in 0.3 mg 2-31 tablet ity of sublingual 00:00: under the [place] tablet 00 tongue Medical every 5 Branch (five) minutes as needed for Chest pain. oxazepam 15 2018-05 Yes [id number] 15mg Take 1 [facility] mg capsule 2-31 capsule by ity of 00:00: mouth [place] 00 every 4 Medical (four) Branch hours as needed for Anxiety. PRN nitroglycer 2018-[id number] 1 Univers in 0.3 mg 2-31 tablet ity of sublingual 00:00: under the [place] tablet 00 tongue Medical every 5 Branch (five) minutes as needed for Chest pain. nitroglycer 2018-[id number] 1 Univers in 0.3 mg 2-31 tablet ity of sublingual 00:00: under the [place] tablet 00 tongue Medical every 5 Branch (five) minutes as needed for Chest pain. metoprolol 2018-05 Yes [id number] 50mg Take 1 U nivers tartrate 50 2-31 tablet by ity of mg tablet 00:00: mouth 2 00 (two) Medical times Branch daily. nitroglycer 2018-[id number] 1 Univers in 0.3 mg 2-31 tablet ity of sublingual 00:00: under the [place] tablet 00 tongue Medical every 5 Branch (five) minutes as needed for Chest pain. nitroglycer 2018-[id number] 1 Univers in 0.3 mg 2-31 tablet ity of sublingual 00:00: under the [place] tablet 00 tongue Medical every 5 Branch (five) minutes as needed for Chest pain. nitroglycer 2018-[id number] 1 Univers in 0.3 mg 2-31 tablet ity of sublingual 00:00: under the [place] tablet 00 tongue Medical every 5 Branch (five) minutes as needed for Chest pain. nitroglycer 2018-[id number] 1 Univers in 0.3 mg 2-31 tablet ity of sublingual 00:00: under the [place] tablet 00 tongue Medical every 5 Branch (five) minutes as needed for Chest pain. nitroglycer 2018-[id number] 1 Univers in 0.3 mg 2-31 tablet ity of sublingual 00:00: under the [place] tablet 00 tongue Medical every 5 Branch (five) minutes as needed for Chest pain. atorvastati 2018-05 Yes [id number] 40mg Take 1 Univers n 40 mg 2-31 tablet by ity of tablet 00:00: mouth at [place] 00 bedtime. Medical Branch nitroglycer 2018-[id number] 1 Univers in 0.3 mg 2-31 tablet ity of sublingual 00:00: under the [place] tablet 00 tongue Medical every 5 Branch (five) minutes as needed for Chest pain. oxazepam 15 2018-05 Yes [id number] 15mg Take 1 [facility] mg capsule 2-31 capsule by ity of 00:00: mouth 00 every 4 Medical (four) Branch hours as needed for Anxiety. PRN metoprolol 2018-05 Yes [id number] 50mg Take 1 U nivers tartrate 50 2-31 tablet by ity of mg tablet 00:00: mouth 2 (two) Medical times Branch daily. atorvastati 2018-05 Yes [id number] 40mg Take 1 Univers n 40 mg 2-31 tablet by ity of tablet 00:00: mouth at [place] 00 bedtime. Medical Branch nitroglycer 2018-[id number] 1 Univers in 0.3 mg 2-31 tablet ity of sublingual 00:00: under the [place] tablet 00 tongue Medical every 5 Branch (five) minutes as needed for Chest pain. oxazepam 15 2018-05 Yes [id number] 15mg Take 1 [facility] mg capsule 2-31 capsule by ity of 00:00: mouth 00 every 4 Medical (four) Branch hours as needed for Anxiety. PRN metoprolol 2018-05 Yes [id number] 50mg Take 1 U nivers tartrate 50 2-31 tablet by ity of mg tablet 00:00: mouth 2 [place] (two) Medical times Branch daily. atorvastati 2018-05 Yes [id number] 40mg Take 1 Univers n 40 mg 2-31 tablet by ity of tablet 00:00: mouth at [place] [address] bedtime. Medical Branch nitroglycer 2018-[id number] 1 Univers in 0.3 mg 2-31 tablet ity of sublingual 00:00: under the [place] tablet 00 tongue Medical every 5 Branch (five) minutes as needed for Chest pain. metoprolol 2018-05 Yes [id number] 50mg Take 1 U nivers tartrate 50 2-31 tablet by ity of mg tablet 00:00: mouth 2 (two) Medical times Branch daily. nitroglycer 2018-05 2020- No [id number] .3mg Place 1 Univers in 0.3 mg 2-31 10-06 tablet ity of sublingual 00:00: 00:00 under the [place] tablet 00 :00 tongue Medical every 5 Branch (five) minutes as needed for Chest pain. nitroglycer 2018-05 2020- No [id number] .3mg Place 1 Univers in 0.3 mg 2-31 10-06 tablet ity of sublingual 00:00: 00:00 under the [place] tablet 00 :00 tongue Medical every 5 Branch (five) minutes as needed for Chest pain. atorvastati 2018-05- No [id number] 40mg Take 1 Univers n 40 mg 08-16 tablet by ity of tablet 00:00: 00:00 mouth at [place] 00 :00 bedtime. Medical Branch metoprolol 2018-05- No [id number] 50mg Take 1 [facility] tartrate 50 08-16 tablet by it y of mg tablet 00:00: 00:00 mouth 2 [place] 00 :00 (two) Medical times Branch daily. oxazepam 15 2018-05 2020- No [id number] 15mg Take 1 [facility] mg capsule 07-04 capsule by it y of 00:00: 00:00 mouth [place] 00 :00 every 4 Medical (four) Branch hours as needed for Anxiety. PRN Vital Signs Vital Name Observation Time Observation Value Comments Source Systolic blood 2021-12-09 02:22:00 119 mm[Hg] [facility] Diastolic blood 2021-12-09 02:22:00 81 mm[Hg] [facility] Heart rate 2021-12-09 02:22:00 94 /min [facility] Body temperature 2021-12-09 02:22:00 36.67 [facility] Respiratory rate 2021-12-09 02:22:00 18 /min [facility] Body height 2021-12-09 02:22:00 177.8 cm [facility] Body weight 2021-12-09 02:22:00 79.379 kg [facility] BMI 2021-12-09 02:22:00 25.11 kg/m2 [facility] Oxygen saturation in 2021-12-09 02:22:00 99 /min [facility] Arterial blood by [facility] Pulse oximetry Branch Systolic blood 2020-02-21 13:56:00 130 mm[Hg] [facility]iver [facility] of [facility] Diastolic blood 2020-02-21 13:56:00 85 mm[Hg] [facility] Heart rate 2020-02-21 13:55:00 68 /min [facility] Respiratory rate 2020-02-21 13:55:00 19 /min Univ ersity of [place] [facility] Body height 2020-02-21 13:55:00 177.8 cm [facility]i ty [facility] [place] [facility] Body weight 2020-02-21 13:55:00 96.117 kg [facility]i [facility] of [place] [facility] BMI 2020-02-21 13:55:00 30.40 kg/m2 Universi ty of [facility] Oxygen saturation in 2020-02-21 13:55:00 98 /min University of Arterial blood by [facility] johnson Pulse oximetry Branch Systolic blood 2019-11-18 14:41:00 147 mm[Hg] Univer sity of pressure [place] [facility] Diastolic blood 2019-11-18 14:41:00 88 mm[Hg] Unive rsity of pressure [place] [facility] Heart rate 2019-11-18 14:41:00 103 /min Universi ty of [facility] Branch Body temperature 2019-11-18 14:41:00 37.17 Kaylee Univ ers[facility] of [facility] Branch Respiratory rate 2019-11-18 14:41:00 18 /min Univ ersity of [place] [facility] Body height 2019-11-18 14:41:00 177.8 cm Universi ty of [place] [facility] Body weight 2019-11-18 14:41:00 106.595 kg [facility]i [facility] of [place] [facility] BMI 2019-11-18 14:41:00 33.72 kg/m2 Universi ty of [facility] Branch Oxygen saturation in 2019-11-18 14:41:00 98 /min University of Arterial blood by [facility] Pulse oximetry Branch Systolic blood 2019-11-18 14:41:00 147 mm[Hg] Univer sity of pressure [place] [facility] Diastolic blood 2019-11-18 14:41:00 88 mm[Hg] Unive rsity of pressure [place] [facility] Heart rate 2019-11-18 14:41:00 103 /min Universi [facility] of [place] [facility] Body temperature 2019-11-18 14:41:00 37.17 Kaylee Univ [facility] [place] [facility] Respiratory rate 2019-11-18 14:41:00 18 /min Univ [facility] [place] [facility] Body height 2019-11-18 14:41:00 177.8 cm [facility] [place] [facility] Body weight 2019-11-18 14:41:00 106.595 kg [facility]i [facility] of [place] [facility] BMI 2019-11-18 14:41:00 33.72 kg/m2 Univers[facility] of [place] [facility] Oxygen saturation in 2019-11-18 14:41:00 98 /min University of Arterial blood by [place] Medi johnson Pulse oximetry Branch Systolic blood 2019-07-10 23:35:00 153 mm[Hg] Univer sity of pressure [place] [facility] Diastolic blood 2019-07-10 23:35:00 83 mm[Hg] Unive rsity of pressure [place] [facility] Heart rate 2019-07-10 23:35:00 90 /min Universi ty [facility] [place] [facility] Body temperature 2019-07-10 23:35:00 36.67 Kaylee Univ [facility] [place] [facility] Respiratory rate 2019-07-10 23:35:00 18 /min Univ [facility] [place] [facility] Body height 2019-07-10 23:35:00 177.8 cm [facility] [place] [facility] Body weight 2019-07-10 23:35:00 117.935 kg Universi [facility] of [place] [facility] BMI 2019-07-10 23:35:00 37.31 kg/m2 [facility] [place] [facility] Oxygen saturation in 2019-07-10 23:35:00 96 /min University of Arterial blood by [facility] Pulse oximetry Branch Systolic blood 2019-07-10 23:35:00 153 mm[Hg] Univer sity of pressure [place] [facility] Diastolic blood 2019-07-10 23:35:00 83 mm[Hg] Unive rsity of pressure [place] [facility] Heart rate 2019-07-10 23:35:00 90 /min [facility] [place] [facility] Body temperature 2019-07-10 23:35:00 36.67 Kaylee [facility] [place] [facility] Respiratory rate 2019-07-10 23:35:00 18 /min Univ [facility] [place] [facility] Body height 2019-07-10 23:35:00 177.8 cm [facility] [place] [facility] Body weight 2019-07-10 23:35:00 117.935 kg [facility] [place] [facility] BMI 2019-07-10 23:35:00 37.31 kg/m2 [facility] [place] [facility] Oxygen saturation in 2019-07-10 23:35:00 96 /min University of Arterial blood by [place] Medi johnson Pulse oximetry Branch Systolic blood 2019-07-04 21:00:00 158 mm[Hg] Univer sity of pressure [place] [facility] Diastolic blood 2019-07-04 21:00:00 106 mm[Hg] Unive rsity of pressure [place] [facility] Heart rate 2019-07-04 21:00:00 98 /min [facility]i [facility] [place] [facility] Body temperature 2019-07-04 21:00:00 36.67 Kaylee Univ [facility] [place] [facility] Respiratory rate 2019-07-04 21:00:00 20 /min Univ [facility] [place] [facility] Oxygen saturation in 2019-07-04 21:00:00 99 /min University of Arterial blood by [place] [employer] johnson Pulse oximetry Branch Body height 2019-07-02 21:10:00 177.8 cm [facility]i [facility] [place] [facility] Body weight 2019-07-02 21:10:00 117.935 kg [facility] [place] [facility] BMI 2019-07-02 21:10:00 37.31 kg/m2 [facility] [place] [facility] Systolic blood 2019-07-04 21:00:00 158 mm[Hg] Univer sity of pressure [place] [facility] Diastolic blood 2019-07-04 21:00:00 106 mm[Hg] Unive rsity of pressure [place] [facility] Heart rate 2019-07-04 21:00:00 98 /min [facility] [place] [facility] Body temperature 2019-07-04 21:00:00 36.67 Kaylee [facility] [place] [facility] Respiratory rate 2019-07-04 21:00:00 20 /min Univ [facility] [place] [facility] Oxygen saturation in 2019-07-04 21:00:00 99 /min University of Arterial blood by [place] [employer] johnson Pulse oximetry Branch Body height 2019-07-02 21:10:00 177.8 cm [facility] [place] [facility] Body weight 2019-07-02 21:10:00 117.935 kg [facility] [place] [facility] BMI 2019-07-02 21:10:00 37.31 kg/m2 [facility] [place] [facility] Systolic blood 2019-06-01 19:53:00 130 mm[Hg] Univer sity of pressure [place] [facility] Diastolic blood 2019-06-01 19:53:00 90 mm[Hg] Unive rsity of pressure [place] [facility] Heart rate 2019-06-01 19:53:00 78 /min [facility]i [facility] [place] [facility] Respiratory rate 2019-06-01 19:53:00 19 /min [facility] height 2019-06-01 19:53:00 177.8 cm [facility] Body weight 2019-06-01 19:53:00 122.154 kg [facility] BMI 2019-06-01 19:53:00 38.64 kg/m2 Universi ty [facility] Oxygen saturation in 2019-06-01 19:53:00 97 /min University of Arterial blood by [facility] Pulse oximetry Branch Systolic blood 2019-06-01 19:53:00 130 mm[Hg] [facility] Diastolic blood 2019-06-01 19:53:00 90 mm[Hg] [facility] 2019-06-01 19:53:00 78 /min Universi ty [facility] Respiratory rate 2019-06-01 19:53:00 19 /min General acute hospital Body height 2019-06-01 19:53:00 177.8 cm Universi ty [facility] Body weight 2019-06-01 19:53:00 122.154 kg Universi ty [facility] BMI 2019-06-01 19:53:00 38.64 kg/m2 Universi ty [facility] Oxygen saturation in 2019-06-01 19:53:00 97 /min [place] of Arterial blood by [facility] Pulse oximetry [place] Procedures Procedure Date / Time Performing Clinician Source Performed XR CHEST 1 VW 2021-12-09 02:40:45 Zaki Galvan [facility] LIPASE 2021-12-09 02:32:00 Zaki Galvan [facility] TROPONIN I 2021-12-09 02:32:00 Zaki Galvan [facility] COMP. METABOLIC PANEL 2021-12-09 02:32:00 Zaki Galvan [facility] ([id number]) [facility] CBC WITH DIFF 2021-12-09 02:32:00 Zaki Galvan [facility] PROTHROMBIN TIME / INR 2021-12-09 02:32:00 Zaki Galvan [facility] acute hospital COVID-19 (ID NOW RAPID 2021-12-09 02:32:00 [facility] TESTING) Medical Branch CONSENT/REFUSAL FOR 2021-12-09 02:17:21 Doctor Unassigned, No [facility] [place] DIAGNOSIS AND TREATMENT Name Medical Branch EXTERNAL PROVIDER - ADC 2020-02-08 05:01:00 Doctor Unassigned, N o [facility] CARDIOLOGY Name Medical Branch NOTICE OF PRIVACY 2019-11-18 14:36:16 [facility] PRACT[facility] Name [facility] Branch CONSENT/REFUSAL FOR 2019-11-18 14:36:00 Doctor Unassigned, No [facility] [place] DIAGNOSIS AND TREATMENT Name Medical Branch NOTICE OF PRIVACY 2019-07-10 23:30:15 Doctor [facility]igned[facility] No [facility] PR[facility] Name [facility] Branch CONSENT/REFUSAL FOR 2019-07-10 23:29:51 Doctor Unassigned, No [facility] [place] DIAGNOSIS AND TREATMENT Name Medical Branch MAGNESIUM 2019-07-04 18:37:[address] [facility] BASIC METABOLIC PANEL 2019-07-04 18:37:00 Geoffrey [facility] (NA, K, CL, CO2, Medical Branch GLUCOSE, BUN, CREATININE, CA) MAGNESIUM 2019-07-03 07:55:[address] [facility] TROPONIN I 2019-07-03 07:55:[address] [facility] BASIC METABOLIC PANEL 2019-07-03 07:55:00 Geoffrey [facility] (NA, K, CL, CO2, Medical Branch GLUCOSE, BUN, CREATININE, CA) CBC WITH DIFFERENTIAL 2019-07-03 07:55:00 Geoffrey [facility] TROPONIN I 2019-07-02 23:18:[address] [facility] ADC / LCC - DRUG SCREEN 2019-07-02 19:50:00 Bert [facility] TRIAGE Medical Branch XR RIBS 3 VW LEFT 2019-07-02 18:57:39 Bert [facility] XR CHEST 1 VW 2019-07-02 18:46:06 Bert [facility] LIPASE 2019-07-02 18:14:00 Bert [facility] MAGNESIUM 2019-07-02 18:14:00 Noel, [facility] TROPONIN I 2019-07-02 18:14:00 Dwight Noel [facility] HEPATIC FUNCTION PANEL 2019-07-02 18:14:00 Dwight Noel [facility] ([id number]) (ALB,T.PRO,BILI [facility] Branch T,BU/BC,ALT,AST,ALK PHOS) BASIC METABOLIC PANEL 2019-07-02 18:14:00 Dwight Noel [facility] (NA, K, CL, CO2, Medical Branch GLUCOSE, BUN, CREATININE, CA) ETHANOL 2019-07-02 18:14:00 Dwight Noel [facility] CBC WITH DIFFERENTIAL 2019-07-02 18:14:[address] [facility] PROTHROMBIN TIME / INR 2019-07-02 18:14:00 Dwight Noel [facility] ACTIVATED PARTIAL 2019-07-02 18:14:00 [facility] PRO-BNP 2019-07-02 18:14:00 Dwight Noel [facility] EKG-12 LEAD 2019-07-02 17:45:17 Dwight Noel [facility] Encounters Start End Encounter Admission Attending Care Care Encounter Source Date/Time Date/Time Type Type Clinicians Facility Department ID 2021-08-16 Outpatient [facility] [id number] Machias 14:59:50 [id number] [facility] 2021-08-14 Outpatient [facility] [id number] [id number] 13:27:24 [id number] [facility] 2021-06-12 [facility] [id number] Common 14:30:57 Indra [facility] 2021-06-12 [facility] [id number] Common 14:25:40 Indra 33674 [facility] 2021-06-12 [facility] [id number] Common 13:50:26 Indra 63117 [facility] 2021-06-12 [facility] Common 13:25:25 Indra 27486 [facility] 2021-06-12 Outpatient Moura, STLMLC STLMLC Common 13:10:24 Indra 09299 [facility] 2021-06-12 Outpatient Moura, STLMLC STLMLC Common 12:58:21 Indra 27097 [facility] 2021-06-12 Outpatient Moura, STLMLC STLMLC Common 12:47:41 Indra 26216 [facility] 2021-06-12 Outpatient Moura, STLMLC STLMLC Common 12:27:06 Indra 36430 [facility] 2021-06-12 Outpatient Moura, STLMLC STLMLC Common 12:26:55 Indra 06182 [facility] 2021-06-12 Outpatient Moura, STLMLC STLMLC Common 12:26:34 Indra 03375 [facility] 2021-06-12 Outpatient Moura, STLMLC STLMLC Common 12:24:18 Indra 01141 [facility] 2021-06-12 Outpatient Moura, STLMLC STLMLC Common 12:22:57 Indra 66693 [facility] 2021-06-12 Outpatient Stan, Fernie STLMLC STLMLC [id number] Common 11:41:54 Read 24021 [facility] 2021-06-12 Outpatient Millender, STLMLC STLMLC Common 11:36:22 Blanquita 07902 [facility] 2021-06-12 Outpatient Devine, STLMLC STLMLC Common 11:18:04 Debbie 30168 [facility] 2021-03-15 Emergency [facility] [id number] [id number] 15:30:00 [facility] 2021-12-08 2021-12-08 Emergency X Avtar MUÑOZ [facility] ERT [id number] Univers 21:17:00 22:10:00 ity of [facility] 2021-12-08 2021-12-08 Emergency Avtar Muñoz [facility] [id number] Univers 21:17:00 22:10:00 Caryn TELLO [id number] i ty [facility] [place] [phone] [address] 2021-04-26 2021-04-26 [facility] 1.2.840.114 [id number] Univers 00:00:00 00:00:00 Melchor TELLO [id number] ity [facility] [place] [phone] Tn dicia NAL 9 [facility] 2020-08-01 2020-08-01 Refanna [facility] 1.2.840.114 [id number] Univers 00:00:00 00:00:00 Melchor Tello [id number] [place] [phone] Tn dicia nal [address] [place] [address] 2020-05-14 2020-05-14 Ref[facility] 1.2.840.114 [id number] Univers 00:00:00 00:00:00 Melchor Tello [id number] [place] [phone] Tn dicia nal [address] [place] [address] 2020-02-21 2020-02-21 Office Alexandra [facility] 1.2.840.114 [id number] Univers 08:44:09 09:23:32 Visit Dianne Tello [id number] [place] [phone] [address] 2020-02-21 2020-02-21 Outpatient R ALEXANDRA [facility] [id number] Univers 09:00:00 09:00:00 SENDIL ity of [facility] 2020-02-21 2020-02-21 Outpatient R MORRIS, [facility] [id number] Univers 09:00:00 09:00:00 SENDIL it[facility] of [facility] 2020-02-20 2020-02-20 [facility] [id number] Univers 09:40:00 09:40:00 MELCHOR ity o f [facility] 2020-02-08 2020-02-08 [facility] [id number] Univers 00:00:00 00:00:00 Qiazuleima Rogers [id number] [place] [phone] [address] 2020-02-08 2020-02-08 Orders Doctor JEANNA 1.2.840.114 [id number] Univers 00:00:00 00:00:00 Only Unassigned, DELROY 350.1.13.10 [facility] 4.2.7.2.686 Akbar as [phone] [address] 2020-01-27 2020-01-27 Refill [facility] 1.2.840.114 [id number] Univers 00:00:00 00:00:00 Melchor Rogers [id number] [place] [phone] Tn dic[address] 2020-01-10 2020-01-10 [facility] [id number] Univers 00:00:00 00:00:00 Qiangjun Rogers [id number] [place] [phone] Tn dicia nal [address] [place] [address] 2019-11-30 2019-11-30 Outpatient [facility] [id number] Univers 09:20:00 09:20:00 MELCHOR [id number] ity o f [facility] 2019-11-18 2019-11-18 Emergency Zuniga, [facility] [id number] [facility] 09:42:51 11:00:00 Anselmo Tello [id number] i [place] [phone] [address] 2019-11-18 2019-11-18 Emergency Zuniga, [facility] [id number] 09:42:51 11:00:00 Anselmo Macdonaldton 350.1.13.10 [place] 4.2.7.2.686 [place] [phone] [facility] 2019-10-23 2019-10-23 Telephone Verónica, [facility] [id number] [facility] 00:00:00 00:00:00 Melchor Macdonaldton 350.1.13.10 [place] [phone] Tn dical [address] 2019-10-23 2019-10-23 Telephone Verónica, [facility] [id number] 00:00:00 00:00:00 Melchor Rogers 350.1.13.10 [place] 4.2.7.2.686 Professio [phone] [address] 2019-09-21 2019-09-21 Telephone Verónica, [facility] 1.2.602.781 [id number] [facility] 00:00:00 00:00:00 Melchor Macdonaldton 350.1.13.10 [place] [phone] Tn dical [address] 2019-09-21 2019-09-21 Telephone Verónica, [facility] [id number] 00:00:00 00:00:00 Melchor Rogers 350.1.13.10 [place] 4.2.7.2.686 Professio [phone] [address] 2019-08-17 2019-08-17 Telemedici Verónica, [facility] 1.2.840.114 [id number] [facility] 14:22:37 15:02:11 ne Visit Melchor Tello 350.1.13.10 [place] [phone] Tn dical [address] 2019-08-17 2019-08-17 Telemedici [facility] 1.2.840.114 [id number] 14:22:37 15:02:11 ne Visit Melchor Tello 350.1.13.10 [place] 4.2.7.2.686 Professio [phone] [address] 2019-08-17 2019-08-17 Outpatient R [facility], [facility] [id number] Univers 14:40:00 14:40:00 ERIKAIVETT [id number] ity o [facility] 2019-08-17 2019-08-17 Outpatient R [facility], [facility] [id number] Univers 14:40:00 14:40:00 ERIKAIVETT ity o [facility] 2019-07-27 2019-07-27 Telephone [facility] 1.2.804.346 [id number] Univers 00:00:00 00:00:00 Melchor Tello 350.1.13.10 [place] [phone] [address] 2019-07-27 2019-07-27 Telephone [facility] 1.2.135.674 [id number] 00:00:00 00:00:00 Melchor Tello 350.1.13.10 [place] 4.2.7.2.686 Professio [phone] [address] 2019-07-10 2019-07-10 Emergency [facility] 1.2.132.348 [id number] [facility] 17:33:57 18:51:00 Anselmo Marquise 350.1.13.10 i ty [place] [phone] [address] 2019-07-10 2019-07-10 Emergency [facility] [id number] 17:33:57 18:51:00 Anselmo Tello 350.1.13.10 [place] 4.2.7.2.686 [place] [phone] 084 2019-07-10 2019-07-10 Orders Doctor JEANNA 1.2.840.114 [id number] Univers 00:00:00 00:00:00 Only Unassigned, DELROY 350.1.13.10 [facility]y of [place] [facility] 4.2.7.2.686 Akbar as [phone] [facility] 009 [place] 2019-07-10 2019-07-10 Orders Doctor JEANNA 1.2.840.114 [id number] 00:00:00 00:00:00 Only Unassigned, [place] 350.1.13.10 [place] [facility] 4.2.7.2.686 [id number] 009 2019-07-08 2019-07-08 Telephone [facility] 1.2.840.114 [id number] [facility] 00:00:00 00:00:00 Chago Tello 350.1.13.10 i [place] [phone] Tn dical [address] 2019-07-08 2019-07-08 Telephone [facility] 1.2.840.114 [id number] 00:00:00 00:00:00 Chago Tello 350.1.13.10 [place] 4.2.7.2.686 Professio [phone] [address] 2019-07-05 2019-07-05 Transition Tawana Franco 1.2.840.114 [id number] Univers 00:00:00 00:00:00 of Care Flori Méndez 350.1.13.10 it y of [place] [phone] [facility] [address] 2019-07-05 2019-07-05 Transition Tawana Franco 1.2.840.114 [id number] 00:00:00 00:00:00 of Care Flori Méndez 350.1.13.10 [place] 4.2.7.2.686 [id number] [id number] 2019-07-02 2019-07-04 Inpatient X DESEAN HALE [facility] [id number] Univers 11:42:40 18:46:00 ity of [facility] 2019-07-02 2019-07-04 [facility] Dwight Noel [facility] 1.2.840.1 14 [id number] [facility] 11:42:40 18:46:00 Encounter Desean Hale 350.1.13.10 [place]2.[place] [phone] [address] 2019-07-02 2019-07-04 [facility] Dwight Noel [facility] 1.2.840.1 14 [id number] 11:42:40 18:46:00 Encounter Desean Hale 350.1.13.10 [place] 4.2.7.2.686 [place] [phone] [facility] 2019-06-13 2019-06-13 Telephone [facility] 1.2.840.114 [id number] [facility] 00:00:00 00:00:00 Chago Tello 350.1.13.10 i [place] [phone] Tn dical [facility] 044 [facility] 2019-06-13 2019-06-13 Telephone [facility] 1.2.840.114 [id number] 00:00:00 00:00:00 Chago Tello 350.1.13.10 [place] 4.2.7.2.686 Professio [phone] [address] 2019-06-01 2019-06-01 Office [facility] 1.2.840.[id number] [place] [address] 13:31:45 14:23:22 Visit Melchor Tello 350.1.13.10 [place] [phone] Tn dical [facility] 059 [facility] 2019-06-01 2019-06-01 Office [facility] 1.2.840.114 [id number] 13:31:45 14:23:22 Visit Melchor Tello 350.1.13.10 [place] 4.2.7.2.686 Professio [phone] [address] Results Test Description Test Time Test Comments Results Result Comments Source PROTHROMBIN TIME / INR 2021-12-09 03:05:20 Test Item Value Reference Range Interpretation Comme nts ADITI PATIENT (test code = See_Comment [Automated message] The system 5964-2) which generated this result transmitted ref erence range: 12.0 - 14.7 Seconds. The reference range was not u sed to interpret this result as normal/abnormal. INR (test code = 6301-6) Nor mal INR <1.1; Warfarin Therapeutic ran ge 2.0 to 3.0 or 2.5 to 3.5, dep ending upon the indications. Lab Interpretation (test code = Normal 81273-2) [facility] METABOLIC PANEL (NA, K, CL, CO2, GLUCOSE, BUN, CREATININE, CA)2019-07-04 19:25:00 Test Item Value Reference Range Interpretation Comments NA (test code = 137 mmol/L 135-145 6198346394) K (test code = 4.1 mmol/L 3.5-5 3189465508) CL (test code = 102 mmol/L 98-108 5531513437) CO2 TOTAL (test code = 27 mmol/L 23-31 6340510818) AGAP (test code = 2-16 2559534952) BUN (test code = 12 mg/dL 7-23 2590633138) GLUCOSE (test code = 103 mg/dL 70-110 5248996759) CREATININE (test code 0.70 mg/dL 0.6-1.25 = 7062487250) CALCIUM (test code = 8.8 mg/dL 8.6-10.6 2121661666) eGFR Calculation mL/min/1.73m2 (Non-) (test code = 7260725446) eGFR Calculation mL/min/1.73m2 () (test code = 7610082124) DAQUAN (test code = DAQUAN) Association of Glomerular Filtration Rate (GFR) and Staging of Kidney Disease* + -+ + ---+| GFR (mL/min/1.73 m2) ?| With Kidney Damage ?| ?Without Kidney Damage+ -------+ ------+ ---------+| ?>90 ?| ?Stage one ?| ? Normal ?+ --+ -+ ----+| ?60-89 ?| ?Stage two ?| ? Decreased GFR ? + -+ + ---+| ?30-59 ?| ?Stage three ?| ? Stage three ? + -+ + ---+| ?15-29 ?| ?Stage four ? | ? Stage four ?+ --+ -+ ----+| ?<15 (or dialysis) ? ?| ?Stage five ? | ? Stage five ?+ --+ -+ ----+ *Each stage assumes the associated GFR level has been in effect for at least three months. ?Stages 1 to 5, with or without kidney disease, indicate chronic kidney disease. Notes: Determination of stages one and two (with eGFR >59mL/min/1.73 m2) requires estimation of kidney damage for at least three months as defined by structural or functional abnormalities of the kidney, manifested by either:Pathological abnormalities or Markers of kidney damage (including abnormalities in the composition of the blood or urine or abnormalities in imaging tests). [facility] 19:24:00 Test Item Value Reference Range Interpretation Comments MAGNESIUM (test code = 6261829126) 2.3 mg/dL 1.7-2.4 Lab Interpretation (test code = Normal 08755-3) [facility] 3 VW [id number] 14:21:01 Left seventh through tenth rib fractures. Questionable left lateral sixth rib fracture. PreliminaryReport Dictated by Resident: Shelley Pollack MD., have reviewed this study and agree with the abovereport.EXAM: XR RIBS 3 VW LEFT HISTORY: 48 years-old Male presenting with left sided rib pain COMPARISON: Chest radiographs 07/02/2019 FINDINGS: Dedicated radiographic rib series demonstrates minimally displaced andnondisplaced fractures of the left lateral seventh through tenth ribs.Acortical irregularity of the lateral sixth rib may also represent anadditional nondisplaced fracture. Left lower lobe airspace opacificationmay represent atelectasis or contusion. [facility], Radiant Results Inft User - 07/03/2019 8:22 AM CSTEXAM: XR RIBS 3 VW LEFTHISTORY: 48 years-old Male presenting withleft sided rib pain COMPARISON: Chest radiographs 07/02/2019FINDINGS:Dedicated radiographic rib series demonstrates minimally displaced andnondisplaced fractures of the left lateral seventh through tenth ribs. Acortical irregularity of the lateral sixth rib may also represent anadditional nondisplaced fracture. Left lower lobe airspace opacificationmay represent atelectasis or contusion.IMPRESSIONLeftseventh through tenth rib fractures.Questionable left lateral sixth rib fracture. Preliminary Report Dictated by Resident: Shelley Hussein MD., have reviewed this study and agree withthe abovereport.[facility] 2019-07-03 08:28:00 Test Item Value Reference Range Interpretation Comments TROPONIN I (test <0.012 See_Comment [Automated code = 2739809488) message] The system which generated this result transmitted reference range : <=0.034 ng/mL. The reference range was not used to interpr et this result as normal/abnormal . DAQUAN (test code = Equal or Less than DAQUAN) 0.034 ng/ml---Normal ?Note: Cardiac troponin begins to rise 3-4 hours after the onset of ischemia. Repeat in 4-6 hours if the sample was drawn within 3-4 hours of the onset of the symptom and found normal. Between 0.035 and 0.120 ng/mL--- Borderline. Questionable myocardial injury or necrosis ? ?Note: Serial measurement may be necessary to confirm or exclude the diagnosis of myocardial injury or necrosis; Clinical correlation (symptoms, EKGs, imaging studies, and others) required; Repeat in 4-6 hours if clinically indicated. ? Equal or Higher than 0.121 ng/mL---Abnormal. Myocardial Injury or Necrosis Likely ? Biotin has been reported to cause a negative bias, interpret results relative to patient's use of biotin. ? Lab Interpretation Normal (test code = 65868-7) [facility] Met[facility] (NA, K, CL, CO2, GLUCOSE, BUN, CREATININE, CA)2019-07-03 08:17:00 Test Item Value Reference Range Interpretation Comments NA (test code = 132 mmol/L 135-145 L 9095624659) K (test code = 3.3 mmol/L 3.5-5 L 3975735550) CL (test code = 94 mmol/L 98-108 L 6155028839) CO2 TOTAL (test code = 27 mmol/L 23-31 1542927779) AGAP (test code = 2-16 3239525165) BUN (test code = 18 mg/dL 7-23 4640181509) GLUCOSE (test code = 116 mg/dL 70-110 H 1143459537) CREATININE (test code = 0.68 mg/dL 0.6-1.25 4574731681) CALCIUM (test code = 8.6 mg/dL 8.6-10.6 9168243950) eGFR Calculation mL/min/1.73m2 (Non-) (test code = 9948279131) eGFR Calculation mL/min/1.73m2 () (test code = 6558479094) DAQUAN (test code = DAQUAN) Association of Glomerular Filtration Rate (GFR) and Staging of Kidney Disease* + --+ --+ ------+| GFR (mL/min/1.73 m2) ?| With Kidney Damage ?| ?Without Kidney Damage+ --------+ --------+ +| ?>90 ?| ?Stage one ?| ? Normal ?+ ---+ ---+ -------+| ?60-89 ?| ?Stage two ?| ? Decreased GFR ? + --+ --+ ------+| ?30-59 ?| ?Stage three ?| ? Stage three ? + --+ --+ ------+| ?15-29 ?| ?Stage four ? | ? Stage four ?+ ---+ ---+ -------+| ?<15 (or dialysis) ? ?| ?Stage five ? | ? Stage five ?+ ---+ ---+ -------+ *Each stage assumes the associated GFR level has been in effect for at least three months. ?Stages 1 to 5, with or without kidney disease, indicate chronic kidney disease. Notes: Determination of stages one and two (with eGFR >59mL/min/1.73 m2) requires estimation of kidney damage for at least three months as defined by structural or functional abnormalities of the kidney, manifested by either:Pathological abnormalities or Markers of kidney damage (including abnormalities in the composition of the blood or urine or abnormalities in imaging tests). Lab Interpretation Abnormal (test code = 32559-2) [facility] [id number] 08:17:00 Test Item Value Reference Range Interpretation Comments MAGNESIUM (test code = 9902071626) 1.7 mg/dL 1.7-2.4 Lab Interpretation (test code = Normal 19435-1) [facility] WITH [id number] 08:04:00 Test Item Value Reference Range Interpretation Comments WBC (test code = See_Comment [Automated 0790-2) message] The sy stem which generated this result transmitted reference range : 4.20 - 10.70 10*3/?L. The reference range was not used to interpret this result as normal/abnormal . RBC (test code = See_Comment [Automated 789-8) message] The sy stem which generated this result transmitted reference range : 4.26 - 5.52 10*6/?L. The reference range was not used to interpret this result as normal/abnormal . HGB (test code = 12.9 g/dL 12.2-16.4 718-7) HCT (test code = 39.6 % 38.4-49.3 4544-3) MCV (test code = 80.5 fL 81.7-95.6 L 787-2) MCH (test code = 26.2 pg 26.1-32.7 785-6) MCHC (test code = 32.6 g/dL 31.2-35 786-4) RDW-SD (test code = 41.0 fL 38.5-51.6 11731-3) RDW-CV (test code = 14.0 % 12.1-15.4 788-0) PLT (test code = See_Comment L [Automated 777-3) message] The sy stem which generated this result transmitted reference range : 150 - 328 10*3/ ?L. The reference r susan was not used to interpret this result as normal/abnormal . MPV (test code = 9.8 fL 9.8-13 40547-8) NRBC/100 WBC (test See_Comment [Automat ed code = 0615666869) message] The system which generated this result transmitted reference range : 0.0 - 10.0 /100 WBCs. The refer ence range was not u sed to interpret th is result as normal/abnormal . NRBC x10^3 (test code <0.01 See_Comment [Auto mated = [id number]) message] The s [employer] which generated this result transmitted reference range : 10*3/?L. The reference range was not used to interpret this result as normal/abnormal . GRAN MAT (NEUT) % 76.1 % (test code = 770-8) IMM GRAN % (test code 0.30 % = 9349099578) LYMPH % (test code = 15.8 % 736-9) MONO % (test code = 7.0 % 5905-5) EOS % (test code = 0.3 % 713-8) BASO % (test code = 0.5 % 706-2) GRAN MAT x10^3(ANC) 7.19 10*3/uL 1.99-6.95 H (test code = 0104058617) IMM GRAN x10^3 (test 0.03 10*3/uL 0-0.06 code = 9825371249) LYMPH x10^3 (test code 1.49 10*3/uL 1.09-3.23 = 731-0) MONO x10^3 (test code 0.66 10*3/uL 0.36-1.02 = 742-7) EOS x10^3 (test code = 0.03 10*3/uL 0.06-0.53 L 711-2) BASO x10^3 (test code 0.05 10*3/uL 0.01-0.09 = 704-7) Lab Interpretation Abnormal (test code = 39164-2) [id number] Test Item Value Reference Range Interpretation Comments TROPONIN I (test <0.012 See_Comment [Automated code = 2443082856) message] The system which generated this result transmitted reference range : <=0.034 ng/mL. The reference range was not used to interpr et this result as normal/abnormal . DAQUAN (test code = Equal or Less than DAQUAN) 0.034 ng/ml---Normal ?Note: Cardiac troponin begins to rise 3-4 hours after the onset of ischemia. Repeat in 4-6 hours if the sample was drawn within 3-4 hours of the onset of the symptom and found normal. Between 0.035 and 0.120 ng/mL--- Borderline. Questionable myocardial injury or necrosis ? ?Note: Serial measurement may be necessary to confirm or exclude the diagnosis of myocardial injury or necrosis; Clinical correlation (symptoms, EKGs, imaging studies, and others) required; Repeat in 4-6 hours if clinically indicated. ? Equal or Higher than 0.121 ng/mL---Abnormal. Myocardial Injury or Necrosis Likely ? Biotin has been reported to cause a negative bias, interpret results relative to patient's use of biotin. ? Lab Interpretation Normal (test code = 62766-2) [facility] - DRUG SCREEN [id number] 20:14:00 Test Item Value Reference Range Interpretation Comments BENZO U (test code = Presumptive Positive Negative A 6232189819) OLEGARIO U (test code = Negative Negative 5989928440) AMPHET (test code = Negative Negative 4081605301) THC (test code = Negative Negative 9025453877) METHADONE (test code = Negative Negative 8140469609) Meth U (test code = Negative Negative 0618126469) OPIATES (test code = Negative Negative 2615910574) Cocaine Metabolite (test Negative Negative code = 4165808034) PROPOXY (test code = Negative Negative 5772514723) Tric U (test code = Negative Negative 2211643616) PCP (test code = Negative Negative 5983757063) OXYCOD (test code = Negative Negative 4356998343) DAQUAN (test code = DAQUAN) Urine Drug Cutoff Ranges Benzodiazepines: ? ? 150 ng/mLBarbiturates: ?200 ng/mLAmphetamine: ? 500 ng/mLCannabinoids: ?50 ?ng/mLMethadone: ? 200 ng/mLMethamphetamine: ? ? 500 ng/mL Opiates: ? 100 ng/mL or 2000 ng/mLCocaine: ? 150 ng/mLPropoxyphene: ?300 ng/mLTricyclics: ?300 ng/mLOxycodone: ? 100 ng/mLPCP: ? 25 ?ng/mL The results are to be used only for medical (i.e., treatment) purposes. Unconfirmed screening results must not be used for non-medical purposes (e.g., employment testing, legal testing). Lab Interpretation (test Abnormal code = 61964-2) [facility] 1 [id number] 19:18:48 Left 8th through 10th rib fractures. Preliminary Report Dictated by Resident: Wolf Pollack MD., have reviewed this study and agree with the abovereport.EXAM: XR CHEST 1 VW HISTORY: 48 years-old Male presenting with chest pain COMPARISON: None TECHNIQUE: PA images of the thorax were obtained. FINDINGS: Bibasilar and perihilar streaky opacities likely reflect changes ofatelectasis. No focal consolidation, pleural effusion or pneumothorax. The cardiomediastinal silhouette is normal. Minimally displaced left lateral 8th through 10th rib fractures.. [facility], Radiant Results Inft User- 07/02/2019 1:19 PM CSTEXAM: XR CHEST 1 VWHISTORY: 48 years-old Male presenting with chest pain COMP ARISON: NoneTECHNIQUE: PA images of the thorax were obtained.FINDINGS:Bibasilar and perihilar streaky opacities likely reflect changes ofatelectasis. No focal consolidation, pleural effusion or pneumothorax.The cardiomediastinal silhouette is normal.Minimally displaced left lateral 8th through 10th rib fractures..IMPRESSIONLeft 8th through 10th rib fractures.Preliminary Report Dictated by Resident: Wolf Hussein MD., have reviewed this study and agree with the abovereport.[facility] [id number] 19:12:00 Test Item Value Reference Range Interpretation Comments TROPONIN I (test <0.012 See_Comment [Automated code = 3345676220) message] The system which generated this result transmitted reference range : <=0.034 ng/mL. The reference range was not used to interpr et this result as normal/abnormal . DAQUAN (test code = Equal or Less than DAQUAN) 0.034 ng/ml---Normal ?Note: Cardiac troponin begins to rise 3-4 hours after the onset of ischemia. Repeat in 4-6 hours if the sample was drawn within 3-4 hours of the onset of the symptom and found normal. Between 0.035 and 0.120 ng/mL--- Borderline. Questionable myocardial injury or necrosis ? ?Note: Serial measurement may be necessary to confirm or exclude the diagnosis of myocardial injury or necrosis; Clinical correlation (symptoms, EKGs, imaging studies, and others) required; Repeat in 4-6 hours if clinically indicated. ? Equal or Higher than 0.121 ng/mL---Abnormal. Myocardial Injury or Necrosis Likely ? Biotin has been reported to cause a negative bias, interpret results relative to patient's use of biotin. ? Lab Interpretation Normal (test code = 10012-0) [facility] HospitalaPTT2020-[facility] 19:12:00 Test Item Value Reference Range Interpretation Comments APTT Patient (test See_Comment [Automat ed code = 3173-2) message] The system which generated this result transmitted reference range : 23 - 38 Seconds . The reference range was not used to interpr et this result as normal/abnormal . DAQUAN (test code = DAQUAN) The [facility] patient population mean normal value for aPTT is 30 seconds. Lab Interpretation Normal (test code = 52750-6) [facility] HospitalProthrombin Time (PT) / [id number] 19:10:00 Test Item Value Reference Range Interpretation Comments PROTIME PATIENT (test See_Comment [Auto mated message] code = 5964-2) The system wh ich generated this result transmitted ref erence range: 12.0 - 1 4.7 Seconds. The re ference range was not u sed to interpret this result as normal/abnor mal. INR (test code = 6301-6) Nor mal INR <1.1; Warfarin Therap eutic range 2.0 to 3. 0 or 2.5 to 3.5, dep ending upon the indica tions. Lab Interpretation (test Normal code = 67029-7) [facility] HospitalN-TERMINAL [id number] 19:09:00 Test Item Value Reference Range Interpretation Comments NT-proBNP (test code 12 pg/mL See_Comment [Autom ated = 6480273956) message] The system which generated this result transmitted reference range : <=125. The reference range was not used to interpret this result as normal/abnormal . DAQUAN (test code = DAQUAN) Biotin has been reported to cause a negative bias, interpret results relative to patient's use of biotin. 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>400 Fatalities Reported [facility] HospitalMAG[facility]IUM2020-02-15 19:00:00 Test Item Value Reference Range Interpretation Comments MAGNESIUM (test code = 8477087298) 2.2 mg/dL 1.7-2.4 Lab Interpretation (test code = Normal 77285-0) [facility] (NA, K, CL, CO2, GLUCOSE, BUN, CREATININE, CA)2019-07-02 19:00:00 Test Item Value Reference Range Interpretation Comments NA (test code = 143 mmol/L 135-145 1728810257) K (test code = 4.5 mmol/L 3.5-5 7789639042) CL (test code = 100 mmol/L 98-108 1414945857) CO2 TOTAL (test code = 25 mmol/L 23-31 3660066878) AGAP (test code = 2-16 H 8682169656) BUN (test code = 16 mg/dL 7-23 4862816876) GLUCOSE (test code = 121 mg/dL 70-110 H 0279606014) CREATININE (test code = 0.69 mg/dL 0.6-1.25 4396339913) CALCIUM (test code = 8.6 mg/dL 8.6-10.6 7795759685) eGFR Calculation mL/min/1.73m2 (Non-) (test code = 5677398049) eGFR Calculation mL/min/1.73m2 () (test code = 0177275544) DAQUAN (test code = DAQUAN) Association of Glomerular Filtration Rate (GFR) and Staging of Kidney Disease* + --+ --+ ------+| GFR (mL/min/1.73 m2) ?| With Kidney Damage ?| ?Without Kidney Damage+ --------+ --------+ +| ?>90 ?| ?Stage one ?| ? Normal ?+ ---+ ---+ -------+| ?60-89 ?| ?Stage two ?| ? Decreased GFR ? + --+ --+ ------+| ?30-59 ?| ?Stage three ?| ? Stage three ? + --+ --+ ------+| ?15-29 ?| ?Stage four ? | ? Stage four ?+ ---+ ---+ -------+| ?<15 (or dialysis) ? ?| ?Stage five ? | ? Stage five ?+ ---+ ---+ -------+ *Each stage assumes the associated GFR level has been in effect for at least three months. ?Stages 1 to 5, with or without kidney disease, indicate chronic kidney disease. Notes: Determination of stages one and two (with eGFR >59mL/min/1.73 m2) requires estimation of kidney damage for at least three months as defined by structural or functional abnormalities of the kidney, manifested by either:Pathological abnormalities or Markers of kidney damage (including abnormalities in the composition of the blood or urine or abnormalities in imaging tests). Lab Interpretation Abnormal (test code = 89225-8) [facility] Function Panel (ALB, T.PRO, BILI T, BU/BC, ALT, AST, ALK PHOS)2019-07-02 19:00:00 Test Item Value Reference Range Interpretation Comments TOTAL BILI (test code = 1993683846) 0.9 mg/dL 0.1-1.1 BILI UNCON (test code = 7496422471) 0.5 mg/dL 0.1-1.1 BILI CONJ (test code = 6986051782) 0.0 mg/dL 0-0.3 T PROTEIN (test code = 1070245537) 8.3 g/dL 6.3-8.2 H ALBUMIN (test code = 0138653379) 4.9 g/dL 3.5-5 ALK PHOS (test code = 8601545080) 93 U/L 34-122 ALTv (test code = 1742-6) 32 U/L 5-50 AST(SGOT) (test code = 1740469625) 57 U/L 13-40 H Lab Interpretation (test code = Abnormal 33035-6) [facility] HospitalLipase [id number] 19:00:00 Test Item Value Reference Range Interpretation Comments LIPASE (test code = 1433132784) 274 U/L 0-220 H Lab Interpretation (test code = Abnormal 58938-1) [facility] HospitalCBC WITH [id number] 18:47:00 Test Item Value Reference Range Interpretation Comments WBC (test code = See_Comment [Automated 6690-2) message] The sy stem which generated this result transmitted reference range : 4.20 - 10.70 10*3/?L. The reference range was not used to interpret this result as normal/abnormal . RBC (test code = See_Comment H [Automated 789-8) message] The sy stem which generated this result transmitted reference range : 4.26 - 5.52 10*6/?L. The reference range was not used to interpret this result as normal/abnormal . HGB (test code = 14.9 g/dL 12.2-16.4 718-7) HCT (test code = 45.6 % 38.4-49.3 4544-3) MCV (test code = 80.4 fL 81.7-95.6 L 787-2) MCH (test code = 26.3 pg 26.1-32.7 785-6) MCHC (test code = 32.7 g/dL 31.2-35 786-4) RDW-SD (test code = 40.3 fL 38.5-51.6 00578-0) RDW-CV (test code = 14.0 % 12.1-15.4 788-0) PLT (test code = See_Comment [Automated 777-3) message] The sy stem which generated this result transmitted reference range : 150 - 328 10*3/ ?L. The reference r susan was not used to interpret this result as normal/abnormal . MPV (test code = 9.7 fL 9.8-13 L 50738-0) NRBC/100 WBC (test See_Comment [Automat ed code = 5558761128) message] The system which generated this result transmitted reference range : 0.0 - 10.0 /100 WBCs. The refer ence range was not u sed to interpret th is result as normal/abnormal . NRBC x10^3 (test code <0.01 See_Comment [Auto mated = 0309216409) message] The s ystem which generated this result transmitted reference range : 10*3/?L. The reference range was not used to interpret this result as normal/abnormal . GRAN MAT (NEUT) % 61.6 % (test code = 770-8) IMM GRAN % (test code 0.30 % = 5926502178) LYMPH % (test code = 30.7 % 736-9) MONO % (test code = 5.4 % 5905-5) EOS % (test code = 1.3 % 713-8) BASO % (test code = 0.7 % 706-2) GRAN MAT x10^3(ANC) 4.67 10*3/uL 1.99-6.95 (test code = 6487898300) IMM GRAN x10^3 (test <0.03 0-0.06 code = 1118863449) LYMPH x10^3 (test code 2.33 10*3/uL 1.09-3.23 = 731-0) MONO x10^3 (test code 0.41 10*3/uL 0.36-1.02 = 742-7) EOS x10^3 (test code = 0.10 10*3/uL 0.06-0.53 711-2) BASO x10^3 (test code 0.05 10*3/uL 0.01-0.09 = 704-7) Lab Interpretation Abnormal (test code = 78683-9) [facility]"
[2021-12-28] MEDS ORDERED: LORazepam 2 MG/ML VIAL ONE ×2 (05:22→08:16)
[2021-12-28 05:54] LABS: Absolute Lymphocytes (CBC) 1.6 K/uL (0.7-4.9); Lymphocytes % 24.7 % (15.3-44.8); MCV 86.3 fL (80-100); MPV 6.9 fL (7.6-11.3)
[2021-12-28 06:16] LABS: Potassium 3.6 mmol/L (3.5-5.1); Troponin High Sensitivity 5.4 pg/mL (<58.9)
--- NOTE | 2021-12-28 07:32 | RAD REPORT ---
EXAM DESCRIPTION: CT - Chest For Pe Angio - 12/28/2021 7:17 am CLINICAL HISTORY: Chest pain COMPARISON: 2019 TECHNIQUE: Dynamically enhanced axial 3 mm thick images of the chest were obtained during administra tion of <100> mL Isovue 370 IV contrast. Coronal and oblique reconstruction images were generated and reviewed. Exam utilizes a protocol for optimal evaluation of pulmonary arterial tree. Maximum intensity projections 3D imaging was utilized All CT scans are performed using dose optimization technique as appropriate and may include automated exposure control or mA/KV adjustment according to patient size. FINDINGS: A pulmonary embolus is not seen. A thoracic aortic aneurysm is not noted. A pleural effusion is not seen. A pericardial effusion is not seen. A lung consolidation is not present. IMPRESSION: Negative for a pulmonary embolism.
--- NOTE | 2021-12-28 07:39 | ER ---
Nurse's Notes [facility] Name: Frank Polo Age: 51 yrs Sex: Male : 1970 Arrival Date: 12/28/2021 Time: 04:59 Bed 15 Private MD: Diagnosis: Chest pain, unspecified;Alcohol abuse with intoxication Presentation: 12/28 05:00 Chief complaint: EMS states: pt drinks liquor every day and tried to quit yesterday. pt sm5 stating he is detoxing complaining of chest pain, a headache and tremors. Coronavirus screen: Vaccine status: Patient reports being unvaccinated. Ebola Screen: No symptoms or risks identified at this time. Initial Sepsis Screen: Does the patient meet any 2 criteria? HR > 90 bpm. No. Patient's initial sepsis screen is negative. Does the patient have a suspected source of infection? No. Patient's initial sepsis screen is negative. Risk Assessment: Do you want to hurt yourself or someone else? Patient reports no desire to harm self or others. Onset of symptoms was December 28, 2021. 05:00 Method Of Arrival: EMS: [facility] 5 05:00 Acuity: PRANAV 3 sm5 Triage Assessment: 05:02 General: Appears in no apparent distress. Behavior is anxious. Pain: Complains of pain sm5 in chest, head. Neuro: Level of Consciousness is awake, alert, obeys commands, Oriented to person, place, time, situation. Cardiovascular: Reports chest pain, Capillary refill < 3 seconds Patient's skin is warm and dry. Respiratory: Airway is patent Trachea midline Respiratory effort is even, unlabored. Historical: - Allergies: 05:01 NKDA; sm5 - Home Meds: 05:01 atorvastatin Oral [Active]; gabapentin 300 mg Oral cap 1 cap 3 times per day [Active]; sm5 Remeron 15 mg Oral tab [Active]; - PMHx: 05:01 Alcoholism; Anxiety; Bipolar disorder; PE; sm5 - Immunization history:: Client reports having NOT received the Covid vaccine. - Social history:: Smoking status: Patient reports use of chewing tobacco. Patient uses alcohol, on a daily basis. Screenin:03 Abuse screen: Denies threats or abuse. Denies injuries from another. Nutritional sm5 screening: No deficits noted. Tuberculosis screening: No symptoms or risk factors identified. Fall Risk None identified. Assessment: 05:15 Reassessment: see triage assessment. [facility] 07:26 Reassessment: Patient appears in no apparent distress at this time. Patient and/or ph family updated on plan of care and expected duration. Pain level reassessed. Patient is alert, oriented x 3, equal unlabored respirations, skin warm/dry/pink. 08:47 General: Appears in no apparent distress. comfortable, Behavior is cooperative, ph appropriate for age. Pain: Complains of pain in head. Neuro: Level of Consciousness is awake, alert, obeys commands, Oriented to person, place, time, situation. Cardiovascular: Capillary refill < 3 seconds in bilateral fingers Patient's skin is warm and dry. Rhythm is sinus tachycardia. Respiratory: Airway is patent Respiratory effort is even, unlabored. Derm: Skin is pink, warm \T\ dry. Musculoskeletal: Circulation, motion, and sensation intact. Range of motion: intact in all extremities. 10:00 Reassessment: Patient appears in no apparent distress at this time. No changes from previously documented assessment. Patient and/or family updated on plan of care and expected duration. Pain level reassessed. 12:00 Reassessment: Patient appears in no apparent distress at this time. Patient and/or ph family updated on plan of care and expected duration. Pain level reassessed. Patient is alert, oriented x 3, equal unlabored respirations, skin warm/dry/pink. 14:00 Reassessment: Patient appears in no apparent distress at this time. Patient and/or ph family updated on plan of care and expected duration. Pain level reassessed. Patient is alert, oriented x 3, equal unlabored respirations, skin warm/dry/pink. 16:26 Reassessment: Patient appears in no apparent distress at this time. Patient and/or ph family updated on plan of care and expected duration. Pain level reassessed. Patient is alert, oriented x 3, equal unlabored respirations, skin warm/dry/pink. Pt d/c home from [facility]. Vital Signs: 05:00 BP 129 / 81; Pulse 98; Resp 15; Temp 98.3(TE); Pulse Ox 100% on R/A; Weight 77.11 kg; 5 Height 5 ft. 10 in. (177.80 cm); Pain 8/10; 07:26 BP 119 / 74; Pulse 104; Resp 18; Pulse Ox 98% on R/A; ph 08:48 BP 114 / 79; Pulse 111; Resp 16; Pulse Ox 99% on R/A; ph 10:00 BP 108 / 78; Pulse 101; Resp 18; Pulse Ox 98% on R/A; ph 11:00 BP 114 / 68; Pulse 110; Resp 16; Pulse Ox 97% on R/A; ph 12:00 BP 103 / 76; Pulse 104; Resp 16; Pulse Ox 100% on R/A; ph 13:30 BP 108 / 70; Pulse 100; Resp 16; Temp 97.9; Pulse Ox 99% on R/A; ph 05:00 Body Mass Index 24.39 (77.11 kg, 177.80 cm) 5 ED Course: 04:59 Patient arrived in ED. 5 05:01 Triage completed. sm5 05:03 Eder Boudreaux DO is Attending Physician. ms3 05:03 Arm band placed on right wrist. sm5 05:03 Patient has correct armband on for positive identification. Bed in low position. Call 5 light in reach. Side rails up X2. Seizure precautions initiated. 05:12 Tanja Jane, EDISON is Primary Nurse. sm5 05:42 XRAY Chest (1 view) In Process Unspecified. EDMS 06:10 Inserted saline lock: 20 gauge in right forearm, using aseptic technique. ,using 5 aseptic technique. by José Blood collected. 07:18 CT Chest For PE Angio In Process Unspecified. EDMS 07:19 Attending Physician role handed off by Eder Boudreaux DO amy 07:19 Tay Key MD is Attending Physician. amy 07:38 Kole Julian is Hospitalizing Provider. amy 07:44 Cleopatra Trejo MD is Hospitalizing Provider. amy 08:22 Diet: Patient given water. mb7 08:48 No provider procedures requiring assistance completed. Patient admitted, IV remains in ph place. 09:38 US Extremity Venous W Compression Jayden In Process Unspecified. EDMS Administered Medications: 05:16 Drug: Ativan (LORazepam) 2 mg Route: IVP; Site: right forearm; sm5 08:02 Drug: NS 0.9% 1000 ml Route: IV; Rate: 1 bolus; Site: right forearm; ph 10:30 Follow up: Response: No adverse reaction; IV Status: Completed infusion; IV Intake: ph 1000ml 08:02 Drug: Thiamine 100 mg Route: IV; Rate: bolus; Site: right forearm; ph 10:30 Follow up: Response: No adverse reaction; IV Status: Completed infusion ph 08:02 Drug: ProTONIX (pantoprazole) 40 mg Route: IVP; Site: right forearm; ph 16:32 Follow up: Response: No adverse reaction ph 08:02 Drug: Aspirin Chewable Tablet 162 mg Route: PO; ph 16:32 Follow up: Response: No adverse reaction ph 08:02 Drug: Lovenox (enoxaparin) 1 mg/kg Route: Sub-Q; Site: right lower abdomen; ph 09:00 Follow up: Response: No adverse reaction ph 08:15 Drug: Ativan (LORazepam) 2 mg Route: IVP; Site: right forearm; ph 09:00 Follow up: Response: No adverse reaction; RASS: Drowsy (-1) ph 10:22 Drug: Zofran (Ondansetron) 4 mg Route: IVP; Site: right forearm; ph 11:00 Follow up: Response: No adverse reaction ph 10:24 Drug: morphine 4 mg Route: IVP; Infused Over: 4 mins; Site: right forearm; ph 11:00 Follow up: Response: No adverse reaction; Pain is decreased; RASS: Drowsy (-1) ph Medication: 05:03 VIS not applicable for this client. sm5 Intake: 10:30 IV: 1000ml; Total: 1000ml. ph Outcome: 07:39 Decision to Hospitalize by Provider. [facility] 16:28 Discharged to pt ER Hold, d/c from ED per Dr Trejo, see [facility] for further info ph 16:28 Condition: good 16:28 Instructed on follow up and referral plans. medication usage. 16:33 Patient left the ED. ph Signatures: Dispatcher [employer] EDTay Smiley MD MD cha Hall, Patricia, RN RN ph Eder Boudreaux DO DO ms3 Staci Atkinson mb7 Tanja Jane RN RN sm5
--- NOTE | 2021-12-28 07:40 | EDPHYS ---
Physician Documentation [facility] Name: Frank Polo Age: 51 yrs Sex: Male : 1970 Arrival Date: 12/28/2021 Time: 04:59 Bed 15 Private MD: ED Physician Tay Key HPI: 12/28 05:15 This 51 yrs old Male presents to ER via EMS with complaints of chest pain, shaking. ms3 05:15 The patient or guardian reports chest pain that is located primarily in the substernal ms3 area. Onset: acutely, 4 hour(s) ago. The pain does not radiate. Associated signs and symptoms: Pertinent positives: shaking, Pertinent negatives: nausea, vomiting. The chest pain is described as a pressure. Duration: The patient or guardian reports a single episode, that is still ongoing. Modifying factors: The symptoms are alleviated by nothing. the symptoms are aggravated by nothing. Severity of pain: At its worst the pain was moderate in the emergency department the pain is unchanged is a 6 / 10. Historical: - Allergies: 05:01 NKDA; sm5 - Home Meds: 05:01 atorvastatin Oral [Active]; gabapentin 300 mg Oral cap 1 cap 3 times per day [Active]; sm5 Remeron 15 mg Oral tab [Active]; - PMHx: 05:01 Alcoholism; Anxiety; Bipolar disorder; PE; sm5 - Immunization history:: Client reports having NOT received the Covid vaccine. - Social history:: Smoking status: Patient reports use of chewing tobacco. Patient uses alcohol, on a daily basis. ROS: 05:15 Constitutional: Negative for fever, and chills. Neck: Negative for injury, pain, and ms3 swelling, Cardiovascular: Negative for chest pain, and palpitations. Respiratory: Negative for shortness of breath, cough, wheezing, and pleuritic chest pain, Abdomen/GI: Negative for abdominal pain, nausea, vomiting, diarrhea, and constipation, MS/Extremity: Tremors Skin: Negative for injury, rash, and discoloration, Allergy/Immunology: Negative for hives, rash, and allergies. 05:15 All other systems are negative. Exam: 05:15 Constitutional: This is a well developed, well nourished patient who is awake, alert, ms3 and in no acute distress. Head/Face: Normocephalic, atraumatic. Neck: Trachea midline, no cervical lymphadenopathy. Supple, full range of motion without nuchal rigidity, or vertebral point tenderness. No Meningismus. Chest/axilla: Normal chest wall appearance and motion. Nontender with no deformity. Cardiovascular: Regular rate and rhythm with a normal S1 and S2. No gallops, murmurs, or rubs. Normal PMI, no JVD. No pulse deficits. Respiratory: Lungs have equal breath sounds bilaterally, clear to auscultation and percussion. No rales, rhonchi or wheezes noted. No increased work of breathing, no retractions or nasal flaring. Abdomen/GI: Soft, non-tender, with normal bowel sounds. No distension or tympany. No guarding or rebound. No evidence of tenderness throughout. Skin: Warm, dry with normal turgor. Normal color with no rashes, no lesions, and no evidence of cellulitis. MS/ Extremity: Pulses equal, no cyanosis. Neurovascular intact. Full, normal range of motion. Psych: Awake, alert, with orientation to person, place and time. Behavior, mood, and affect are within normal limits. 05:15 Neuro: Patient with bilateral upper extremity tremors. 05:24 ECG was reviewed by the Attending Physician. ms3 08:08 ECG was reviewed by the Attending Physician. amy Vital Signs: 05:00 BP 129 / 81; Pulse 98; Resp 15; Temp 98.3(TE); Pulse Ox 100% on R/A; Weight 77.11 kg; sm5 Height 5 ft. 10 in. (177.80 cm); Pain 8/10; 07:26 BP 119 / 74; Pulse 104; Resp 18; Pulse Ox 98% on R/A; ph 08:48 BP 114 / 79; Pulse 111; Resp 16; Pulse Ox 99% on R/A; ph 10:00 BP 108 / 78; Pulse 101; Resp 18; Pulse Ox 98% on R/A; ph 11:00 BP 114 / 68; Pulse 110; Resp 16; Pulse Ox 97% on R/A; ph 12:00 BP 103 / 76; Pulse 104; Resp 16; Pulse Ox 100% on R/A; ph 13:30 BP 108 / 70; Pulse 100; Resp 16; Temp 97.9; Pulse Ox 99% on R/A; ph 05:00 Body Mass Index 24.39 (77.11 kg, 177.80 cm) sm5 MDM: 05:03 Patient medically screened. ms3 05:15 Differential diagnosis: abnormal EKG, acute myocardial infarction, Alcohol withdrawl. ms3 07:27 HEART Score: History: Moderately Suspicious (1). amy 07:39 The patient was given aspirin in the Emergency Department. The patient's deep vein amy thrombosis risk score was calculated as follows: Total Score: 0. This patient was found to be at low risk for a deep vein thrombosis by using the Well's assessment criteria. The patient's pulmonary embolism risk score was calculated as follows: the patient has a history of a previous deep vein thrombosis or pulmonary embolism (1.5 Pts) Total Score: 0-2 points. This patient was found to be at low risk for a pulmonary embolism by using the Well's assessment criteria. JONAH Risk Score: TOTAL SCORE = 0. Data reviewed: vital signs, nurses notes, lab test result(s), EKG, radiologic studies, CT scan, doppler, plain films. Data interpreted: oversize load pilot escort: rate is 104 beats/min, Pulse oximetry: on room air is 98 %. Test interpretation: by ED physician or midlevel provider: ECG, plain radiologic studies. Counseling: I had a detailed discussion with the patient and/or guardian regarding: the historical points, exam findings, and any diagnostic results supporting the discharge/admit diagnosis, lab results, radiology results, the need for further work-up and treatment in the hospital. 12/28 05:05 Order name: Basic Metabolic Panel; Complete Time: 06:17 ms3 12/28 05:05 Order name: CBC with Diff; Complete Time: 05:57 ms3 12/28 05:05 Order name: Troponin HS; Complete Time: 06:17 ms3 12/28 05:05 Order name: ETOH Level; Complete Time: 06:59 ms3 12/28 06:22 Order name: D-Dimer; Complete Time: 06:59 ms3 12/28 07:35 Order name: SARS RAPID ph 12/28 07:36 Order name: UDS amy 12/28 08:21 Order name: SARS RAPID ss 12/28 13:20 Order name: CBC with Automated Diff EDMS 12/28 13:20 Order name: CBC with Automated Diff EDMS 12/28 13:20 Order name: Comprehensive Metabolic Panel EDMS 12/28 13:20 Order name: Comprehensive Metabolic Panel EDMS 12/28 13:20 Order name: Magnesium EDMS 12/28 13:20 Order name: Magnesium EDMS 12/28 05:05 Order name: XRAY Chest (1 view) ms3 12/28 06:50 Order name: CT Chest For PE Angio; Complete Time: 07:40 ms3 12/28 07:21 Order name: US Extremity Venous W Compression Jayden amy 12/28 13:20 Order name: Phosphorus EDMS 12/28 13:20 Order name: Phosphorus EDMS 12/28 13:21 Order name: Alcohol Serum/Plasma EDMS 12/28 13:21 Order name: Alcohol Serum/Plasma EDMS 12/28 15:42 Order name: Troponin High Sensitivity EDMS 12/28 05:05 Order name: EKG; Complete Time: 05:06 ms3 12/28 05:05 Order name: Cardiac monitoring; Complete Time: 05:12 ms3 12/28 05:05 Order name: EKG - Nurse/Tech; Complete Time: 06:10 ms3 12/28 05:05 Order name: IV Saline Lock; Complete Time: 05:12 ms3 12/28 05:05 Order name: Labs collected and sent; Complete Time: 06:10 ms3 12/28 05:05 Order name: O2 Per Protocol; Complete Time: 05:12 ms3 12/28 05:05 Order name: O2 Sat Monitoring; Complete Time: 05:12 ms3 12/28 11:57 Order name: Diet Regular; Complete Time: 12:00 ph EC:08 Rate is 102 beats/min. Rhythm is regular. QRS [address] is Normal. HI interval is normal. amy QRS interval is normal. QT interval is normal. No Q waves. T waves are Normal. No ST changes noted. Clinical impression: Sinus tachycardia and No evidence of ischemia. Interpreted by me. Reviewed by me. Administered Medications: 05:16 Drug: Ativan (LORazepam) 2 mg Route: IVP; Site: right forearm; sm5 08:02 Drug: NS 0.9% 1000 ml Route: IV; Rate: 1 bolus; Site: right forearm; ph 10:30 Follow up: Response: No adverse reaction; IV Status: Completed infusion; IV Intake: ph 1000ml 08:02 Drug: Thiamine 100 mg Route: IV; Rate: bolus; Site: right forearm; ph 10:30 Follow up: Response: No adverse reaction; IV Status: Completed infusion ph 08:02 Drug: ProTONIX (pantoprazole) 40 mg Route: IVP; Site: right forearm; ph 16:32 Follow up: Response: No adverse reaction ph 08:02 Drug: Aspirin Chewable Tablet 162 mg Route: PO; ph 16:32 Follow up: Response: No adverse reaction ph 08:02 Drug: Lovenox (enoxaparin) 1 mg/kg Route: Sub-Q; Site: right lower abdomen; ph 09:00 Follow up: Response: No adverse reaction ph 08:15 Drug: Ativan (LORazepam) 2 mg Route: IVP; Site: right forearm; ph 09:00 Follow up: Response: No adverse reaction; RASS: Drowsy (-1) ph 10:22 Drug: Zofran (Ondansetron) 4 mg Route: IVP; Site: right forearm; ph 11:00 Follow up: Response: No adverse reaction ph 10:24 Drug: morphine 4 mg Route: IVP; Infused Over: 4 mins; Site: right forearm; ph 11:00 Follow up: Response: No adverse reaction; Pain is decreased; RASS: Drowsy (-1) ph Disposition Summary: 12/28/21 07:39 Hospitalization Ordered Hospitalization Status: Observation amy Location: Telemetry/[facility] [place] (observation) amy Condition: Stable amy Problem: new amy Symptoms: have improved amy Bed/Room Type: Standard [facility] Room Assignment: [facility] Provider: Cleopatra Trejo(12/28/21 07:45) amy Diagnosis - Chest pain, unspecified amy - Alcohol abuse with intoxication amy Discharge Instructions: - Discharge Summary Sheet ms3 - Nonspecific Chest Pain, Adult ms3 - Alcohol Abuse and Dependence Information, Adult ms3 Forms: - Medication Reconciliation Form amy - SBAR form amy Signatures: Dispatcher [employer] EDMS Tay Key MD MD cha Hall, Patricia RN RN ph Eder Boudreaux DO DO ms3 Tanja Jane, RN RN sm5 Corrections: (The following items were deleted from the chart) 07:45 07:39 Kole Julian cha, cha 08:08 05:24 Rate is 100 beats/min. Rhythm is regular. QRS [address] is Normal. QRS interval is amy normal. Clinical impression: Normal ECG. Interpreted by me. Reviewed by me. ms3
[2021-12-28] MEDS ORDERED: ASPIRIN 81 MG CHEWABLE TABLET ONE (07:56)
[2021-12-28] MEDS ORDERED: THIAMINE 200 MG/2 ML INJ ONE (07:56)
[2021-12-28] MEDS ORDERED: PANTOPRAZOLE 40 MG INJ ONE (07:56)
[2021-12-28] MEDS ORDERED: ENOXAPARIN 80 MG/0.8 ML SQ ONE (07:56)
[2021-12-28] MEDS ORDERED: NA CHLORIDE 0.9% 1,000 ML ONE (07:57)
[2021-12-28 08:47] LABS: SARS-CoV-2 Antigen Rapid Res Negative (Negative)
--- NOTE | 2021-12-28 09:48 | RAD REPORT ---
EXAM DESCRIPTION: USExtrem Venous W Compress Bil12/28/2021 9:36 am CLINICAL HISTORY: Leg pain COMPARISON: 2019 FINDINGS: The common femoral, superficial femoral, popliteal and posterior tibial veins bilaterally are compressible and demonstrate augmentation. Doppler demonstrates good flow. 3 centimeter left Rodrigues's cyst Grayscale, color and spectral analysis performed on all vessels IMPRESSION: No evidence of deep venous thrombosis involving either lower extremity. 3 centimeter left Rodrigues's cyst
[2021-12-28] MEDS ORDERED: MORPHINE 4 MG/ML SYR ONE (10:22)
[2021-12-28] MEDS ORDERED: ONDANSETRON 4 MG/2 ML VIAL ONE (10:23)
[2021-12-28] MEDS ORDERED: ONDANSETRON 4 MG/2 ML VIAL IV PRN (13:16)
--- NOTE | 2021-12-28 13:25 | P.SSS ---
Patient History Date of Service: 12/28/21 Reason for admission: Alcohol withdrawal History of Present Illness: Patient is a 51yo who was admitted for alcohol withdrawal. He has been drinking heavily. He came to the ER because he was intoxicated. he denies any other complaints. I was called to see the patient for chest pain. He denies chest pain. His troponins are negative. His D-dimer was elevated. CT PE protocol was negative. Patient denies any other complaints except for some upper ex tremity tremors. He will be admitted for observation. Allergies No Known Drug Allergies Allergy (Verified 09/26/14 12:32) Unknown Home Medications: Apixaban [Eliquis] 5 mg PO BID #60 tablet 07/23/19 Aspirin Chewable [Aspirin Chewable*] 81 mg PO DAILY 07/23/19 Folic Acid 1 mg PO DAILY #30 tablet 07/23/19 Gabapentin 300 mg PO TID 07/23/19 Lidocaine 4% Patch [Lidoderm 5% Patch*] 1 patch TOP DAILY #3 patch 07/23/19 Mirtazapine [Remeron*] 15 mg PO BEDTIME 07/23/19 Thiamine HCl [Vitamin B-1*] 100 mg PO DAILY tablet 07/23/19 chlordiazePOXIDE HCl [Chlordiazepoxide HCl] 20 mg PO TID #70 12/28/21 chlordiazePOXIDE HCl [Chlordiazepoxide HCl] 20 mg PO TID #70 12/28/21 chlordiazePOXIDE HCl [Librium] 25 mg PO Q8HP PRN #60 cap 12/28/21 - Past Medical/Surgical History Diabetic: No -: Bipolar disorder -: Nerve Pain -: ETOH abuse -: HTN -: [place] -: Left ankle surgery Psychosocial/ Personal History: Patient lives with his friend. - Family History Mother -: Heart disease, Diabetes Father -: Lung disease, Other (see notes) Notes: dementia - Social History Smoking Status: Former smoker Alcohol use: Yes CD- Drugs: Yes Caffeine use: Yes Review of Systems 10-point ROS is otherwise unremarkable Physical Examination - Vital Signs Temperature: 98 F Blood Pressure: 140/80 Pulse: 80 Respirations: 18 Pulse Ox (%): 100 - Physical Exam General: Alert, In no apparent distress, Oriented x3 HEENT: Atraumatic, PERRLA, Mucous membr. moist/pink, EOMI, Sclerae nonicteric Neck: Supple, 2+ carotid pulse no bruit, No LAD, Without JVD or thyroid abnormality Respiratory: Clear to auscultation bilaterally, Normal air movement Cardiovascular: Regular rate/rhythm, Normal S1 S2 Gastrointestinal: Normal bowel sounds, Soft and benign, Non-distended, No tender ness Musculoskeletal: No clubbing, No swelling, No tenderness Integumentary: No rashes Neurological: Normal gait, Normal speech, Normal strength at 5/5 x4 extr, Normal tone, Sensation intact, Cranial nerves 3-12 intact, Normal affect Lymphatics: No axilla or inguinal lymphadenopathy - Studies Laboratory Data (last 24 hrs) 12/28/21 05:42: WBC 6.7, Hgb 14.9, Hct 44.0, Plt Count 173 12/28/21 05:42: Sodium 139, Potassium 3.6, BUN 9, Creatinine 0.67, Glucose 98 - Diagnosis (Problem(s)) (1) Alcohol intoxication Current Visit: No Status: Acute Qualifiers: Complication of substance-induced condition: with delirium Qualified Code(s): F10.921 - Alcohol use, unspecified with intoxication delirium Treatment Summary: Patient will be given plan is to start Librium. Patient will be discharged on tapering dose of Librium. He has been advised to refrain from alcohol use. If he does start drinking he was advised to stop taking the Librium. Plan to discharge him after supper if he continues to do well. Troponins have been negative. He denies having chest pain. Vital signs are stable. He will need outpatient follow-up with primary care provider to continue monitoring his abnormal lab findings. - Disposition Discharge Date: 12/28/21 Disposition: ROUTINE DISCHARGE Condition: GOOD Prescriptions: chlordiazePOXIDE HCl [Chlordiazepoxide HCl] 20 mg PO TID #70 chlordiazePOXIDE HCl [Chlordiazepoxide HCl] 20 mg PO TID #70 chlordiazePOXIDE HCl [Librium] 25 mg PO Q8HP PRN #60 cap PRN Reason: Agitation Followup: Unknown,U [Primary Care Provider] - Prvt As Needed Patient Discharge Instructions: -DC IV and DC home. -Follow-up with PCP in 1 to 2 weeks. -Please call Dr. Trejo at [phone] if any questions regarding hospital stay. -Please call nursing station at [phone] if any nursing or medication questions. -Return to the emergency room if symptoms worsen Diet: AHA Activity: Fall precautions Critical Care: No Time Spent Managing Pts Care (In Minutes): 45
[2021-12-28] MEDS ORDERED: chlordiazePOXIDE HCl 5 MG CAP PO ONE ×2 (14:00→15:25)
[2021-12-28] MEDS ORDERED: FOLIC ACID 1 MG, MULTIVITAMINS INJ 10 ML, THIAMINE HCL 100 MG in NA CHLORIDE 0.9% 1,000 ML IV SCH (14:00)
[2021-12-28 17:26] VITALS: BP 108/70; TEMP 97.9; O2SAT 99
[2021-12-28 18:03] VITALS: BMI 24.3
--- NOTE | 2021-12-28 20:09 | RAD REPORT ---
EXAM DESCRIPTION: RAD - Chest Single View - 12/28/2021 5:41 am CLINICAL HISTORY: The patient is 51 years old and is Male; CHEST PAIN TECHNIQUE: Frontal view of the chest. COMPARISON: No relevant prior studies available. FINDINGS: Lungs: Unremarkable. No consolidation. Pleural space: Unremarkable. No pneumothorax. Heart: Unremarkable. Mediastinum: Unremarkable. Bones/joints: Unremarkable. IMPRESSION: No acute findings in the chest. Electronically signed by: José Mayo MD 12/28/2021 6:11 AM CDT Due to temporary technical issues with the PACS/Fluency reporting system, reports are being signed by the in house radiologists without review as a courtesy to insure prompt reporting. The interpreting radiologist is fully responsible for the content of the report.
[2021-12-29] MEDS ORDERED: FOLIC ACID 1 MG TABLET PO SCH (09:00)
[2021-12-29] MEDS ORDERED: THIAMINE HCL 100 MG TABLET PO SCH (09:00)
[2021-12-29] MEDS ORDERED: ENOXAPARIN 40 MG/0.4 ML SQ SCH (09:00)
--- NOTE | 2021-12-31 08:24 | EKG ---
Test Date: 2021-12-28 Test Time: 05:24:07 Anime Designer: SHAUNNA MEASUREMENT RESULTS: Intervals: Rate: 100 CA: 140 QRSD: 90 QT: 362 QTc: 466 [place]: P: 63 CA: 140 QRS: 43 T: 43 INTERPRETIVE STATEMENTS: Normal sinus rhythm Normal ECG Compared to ECG 08/12/2019 17:56:13 Myocardial infarct finding no longer present Electronically Signed On 12-31-21 08:12:45 CDT by Gunnar Oliveira
--- NOTE | 2021-12-31 08:24 | EKG ---
Test Date: 2021-12-28 Test Time: 08:05:46 Pinion And Wheel Truer: MB MEASUREMENT RESULTS: Intervals: Rate: 102 NJ: 174 QRSD: 94 QT: 334 QTc: 435 Jenkins: P: 29 NJ: 174 QRS: 44 T: 39 INTERPRETIVE STATEMENTS: Sinus tachycardia Cannot rule out Anterior infarct, age undetermined Abnormal ECG Compared to ECG 12/28/2021 05:24:07 Myocardial infarct finding now present Sinus rhythm no longer present Electronically Signed On 12-31-21 08:12:40 CDT by Gunnar Oliveira
== END 2021-12-28 16:30 | disposition home or self-care (01) ==
LOC: ER 04:54 → ERHOLD 13:16
PROVIDERS: ADMIT Hospitalist; ATTEND Hospitalist
DX: F10.921 Alcohol use, unspecified with intoxication delirium (principal); R25.1 Tremor, unspecified; I10 Essential (primary) hypertension; M79.2 Neuralgia and neuritis, unspecified; F31.9 Bipolar disorder, unspecified; F41.9 Anxiety disorder, unspecified; I25.2 Old myocardial infarction; F17.220 Nicotine dependence, chewing tobacco, uncomplicated; Z28.310 Unvaccinated for COVID-19; Z20.822 Contact with and (suspected) exposure to COVID-19; Z86.711 Personal history of pulmonary embolism; Z79.01 Long term (current) use of anticoagulants; Z79.82 Long term (current) use of aspirin; Z79.899 Other long term (current) drug therapy; Z82.49 Family history of ischemic heart disease and other diseases of the circulatory system; Z83.3 Family history of diabetes mellitus
CPT/HCPCS: 96365; 93005 ×2; 85025; 80048; 36415; 80320; 85379; 84484 ×2; 71275; 71045; 93970; 96375; 96372; 99284; 96366; 87811; Q9967; J3411 ×2; C9113; J7030 ×2; J2405; G0378 ×2

== ENCOUNTER 2022-03-02 10:00 | Emergency (ER) | payer OTHER ==
--- OUTSIDE RECORDS SUMMARY | 2022-03-02 10:07 | XMS REPORT | Continuity of Care Document ---
:1970 Author Organization [facility] t Address [address] [place] [address] [place] [id number] Care Team Providers Name Role Phone UNKNOWN, REFFERING Primary Care Physician Unavailable Indra Moura Attending Clinician Unavailable Fernie Pierce Attending Clinician Unavailable Blanquita Loja Attending Clinician Unavailable Debbie Devine Attending Clinician Unavailable Avtar MUÑOZ Attending Clinician Unavailable Avtar Pierce Attending Clinician Melchor Sanches MD Attending Clinician Dianne Morris MD K.[facility]. Attending Clinician DIANNE MORRIS K.H. Attending Clinician Unavailable Doctor Unassigned, Govan Attending Clinician Unavailable Anselmo Zuniga DO Attending Clinician MELCHOR SANCHES Attending Clinician Unavailable Chago Owen MD Attending Clinician Flori Franco RN Attending Clinician DESEAN HALE Attending Clinician Unavailable Dwight Noel MD Attending Clinician Desean Hale MD Attending Clinician ZAKI GALVAN Admitting Clinician Unavailable DESEAN HALE Admitting Clinician Unavailable Desean Hale MD Admitting Clinician Payers Payer Name Policy Type Policy Number Effective Date Expiration Date Umm jauregui [facility] [id number] 2021 00:00:00 MEDICARE PART A [id number] 2017 \\T\\ B 00:00:00 [employer] [id number] 2021 MEDICARE ADVANTAGE 00:00:00 Problems Condition Condition Condition Status Onset Resolution Last Treating Co mments Source Name Details Category Date Date Treatment Clinician Date Elevated Elevated Disease Active Unive rs blood blood 2-16 ity of pressure pressure 00:00: [place] reading reading 00 Medical Branch Tachycardi Tachycardi Disease Active U nivers a a 2-16 ity of 00:00: [place] 00 Medical Branch Nonobstruc Nonobstruc Disease Active U nivers tive tive 2-16 ity of atheroscle atheroscle 00:00: [place] rosis of rosis of 00 Medica l coronary coronary Branch artery artery Essential Essential Disease Active Uni vers hypertensi hypertensi 2-16 it y of on on 00:00: [place] 00 Medical Branch Atypical Atypical Disease Active Unive rs chest pain chest pain 2-16 it y of 00:00: [place] 00 Medical Branch Alcohol Alcohol Disease Active Univers withdrawal withdrawal 2-15 it y of 00:00: [place] 00 Medical Branch 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 (myocardia (myocardia 2-31 it y of l l 00:00: [place] infarction infarction 00 Me dical ) ) Branch Obesity Obesity Disease Active 2018-05 Univers (BMI (BMI 2-31 ity of 30-39.9) 30-39.9) 00:00: [place] Medical Branch 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 Uni vers hypertensi hypertensi 2-31 it y of on on 00:00: [place] 00 Medical Branch Alcohol Alcohol Disease Active Methodi withdrawal withdrawal 10-18 st 00:00: [facility] 00 l Bipolar Bipolar Disease Recurre Method i affective affective nce 10-17 st disorder, disorder, 00:00: Hosp jeancarlos depressed, depressed, 00 l severe, severe, with with psychotic psychotic behavior behavior Alcohol Alcohol Disease Active Univers abuse abuse 2-17 ity of 00:00: [place] 00 Medical Branch 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 2-17 ity of 00:00: [place] 00 Medical Branch Anxiety Anxiety Disease Active Univers disorder disorder 2-17 ity of 00:00: [facility] Depression Depression Disease Recurre Univers nce 2-17 ity of 00:00: [place] [facility] Acute Acute Disease Active Univers respirator respirator 2-17 it y of y failure y failure 00:[place] [facility] Tobacco Tobacco Disease Active Univers abuse abuse 2-17 ity of disorder disorder 00:00: [place] [facility] Suicidal Suicidal Disease Active Unive rs ideation ideation 5- ity of 00:00: [place] [facility] Allergies, Adverse Reactions, Alerts Allergy Allergy Status Severity Reaction(s) Onset Inactive Treating Comm ents Source Name Type Date Date Clinician NO KNOWN Drug Active [facility] ALLERGIE Class ity of [facility] Social History Social Habit Start Date Stop Date Quantity Comments Source History of Chews Tobacco [place] of tobacco use [facility] Exposure to 2021-11-28 2021-12-08 Not sure [facility] SARS-CoV-2 00:00:00 21:20:00 [facility] ([facility]) [place] Tobacco use and 2019-06-01 2019-06-01 User of smokeless Un iversity of exposure 00:00:00 00:00:00 tobacco [facility] Alcohol intake 2015-10-18 2015-10-18 Current drinker [facility] 00:00:00 00:00:00 of alcohol (finding) Alcohol Comment 2015-10-18 2015-10-18 case a day some [facility] 00:00:00 00:00:00 days Sex [birth year] [facility] 00:00:00 00:00:00 Smoking Status Start Date Stop Date Source Ex-smoker 2019-06-01 00:00:00 2019-06-01 00:00:00 [facility] Smokes tobacco daily 2015-10-18 00:00:00 [facility] Medications Ordered Filled Start Stop Current Ordering Indication Dosage Frequency Signature Comments Components Source Medication Medication Date Date Medication? Clinician (SIG) Name Name ketorolac 2021- 15mg 15 mg, Unive rs (TORADOL) 12-09 07-25 Slow IV ity of injection 04:00: 15:59 Push, [place] 15 mg 00 :00 ONCE, 1 Medical dose, On Branch 12/08/21 at 2300, IDA aspirin 2021-0 2021- Yes 324mg 324 mg, Unive rs chewable 12-09 07-25 Oral, ity of tablet 324 04:00: 15:59 ONCE, 1 [place] as mg 00 :00 dose, On Medical [place] Branch 12/08/21 at 2300, Routine atorvastati Yes 40mg Take 1 Univ ers n 40 mg 3-18 tablet by ity of tablet 00:00: mouth [place] 00 daily. Medical Branch atorvastati Yes 40mg Take 1 Univ ers n 40 mg 3-18 tablet by ity of tablet 00:00: mouth [place] 00 daily. Medical Branch atorvastati Yes 40mg [...] by ity of tablet 00:00: mouth at [place] [address] bedtime. Medical Branch lamoTRIgine 2020-0 Yes 100mg Take 100 U nivers 100 mg 9-27 mg by ity of tablet 00:00: mouth at [place] [address] bedtime. Medical Branch lamoTRIgine 2020-0 Yes 100mg Take 100 U nivers 100 mg 9-27 mg by ity of tablet 00:00: mouth at [place] 00 bedtime. Medical Branch lamoTRIgine 2020-0 Yes 100mg Take 100 U nivers 100 mg 9-27 mg by ity of tablet 00:00: mouth at [place] [address] bedtime. Medical Branch lamoTRIgine 2020-0 Yes 100mg Take 100 U nivers 100 mg 9-27 mg by ity of tablet 00:00: mouth at [place] [address] bedtime. Medical Branch lamoTRIgine 2020-0 Yes 100mg Take 100 U nivers 100 mg 9-27 mg by ity of tablet 00:00: mouth at [place] 00 bedtime. Medical Branch apixaban 5 2020-0 Yes [...] by ity of mg tablet 00:00: mouth (two) Medical times Branch daily. atorvastati 2020-0 Yes 40mg Take 1 Univ ers n 40 mg 4-01 tablet by ity of tablet 00:00: mouth [place] 00 daily. Medical Branch apixaban 5 2020-0 Yes [id number] 5mg Take 1 Unive rs mg tablet 4-01 tablet by ity o f 00:00: mouth 2 (two) Medical times Branch daily. Indication s: a clot in the lung atorvastati 2020-0 Yes 40mg Take 1 Univ ers n 40 mg 4-01 tablet by ity of tablet 00:00: mouth [place] 00 daily. Medical Branch apixaban 5 2020-0 Yes 1291 5mg Take 1 Unive rs mg tablet 4-01 tablet by ity o f 00:00: mouth (two) Medical times Branch daily. Indication s: a clot in the lung atorvastati 2020-0 Yes 40mg Take 1 Univ ers n 40 mg 4-01 tablet by ity of tablet 00:00: mouth 00 daily. Medical Branch apixaban 5 2020-0 Yes 1291 5mg Take 1 Unive rs mg tablet 4-01 tablet by ity o f 00:00: mouth (two) Medical times Branch daily. Indication s: a clot in the lung atorvastati 2020-0 Yes 40mg Take 1 Univ ers n 40 mg 4-01 tablet by ity of tablet 00:00: mouth 00 daily. Medical Branch apixaban 5 2020-0 Yes 1291 5mg Take 1 Unive rs mg tablet 4-01 tablet by ity o f 00:00: mouth (two) Medical times Branch daily. Indication s: a clot in the lung atorvastati 2020-0 Yes 40mg Take 1 Univ ers n 40 mg 4-01 tablet by ity of tablet 00:00: mouth [place] 00 daily. Medical Branch apixaban 5 2020-0 Yes 1291 5mg Take 1 Unive rs mg tablet 4-01 tablet by ity o f 00:00: mouth (two) Medical times Branch daily. Indication s: a clot in the lung atorvastati 2020-0 2020- No 40mg Take 1 Uni vers n 40 mg 08-16 tablet by ity of tablet 00:00: 00:00 mouth [place] 00 :00 daily. Medical Branch apixaban 5 2019-0 2020- No 1291 5mg Take 1 Univ ers mg tablet 08-16 tablet by ity of 00:00: 00:00 mouth 2 [place] 00 :00 (two) Medical times Branch daily. Indication s: a clot in the lung metoprolol 2020-0 2020- No 50mg Take 1 Univ ers tartrate 50 08-16 tablet by it y [...] Branch daily. foLIC acid 2020-0 2020- No [id number] 1mg Take 1 Univers 1 mg tablet 2-18 03-20 tablet by it y of 00:00: 04:59 mouth [place] 00 :00 daily for Medical 30 days. Branch thiamine 2020-0 2020- No [id number] 100mg Take 1 Univers 100 mg 2-18 03-20 tablet by ity of tablet 00:00: 04:59 mouth [place] 00 :00 daily for Medical 30 days. Branch foLIC acid 2020-0 2020- No [id number] 1mg Take 1 Univers 1 mg tablet 2-18 03-20 tablet by it y of 00:00: 04:59 mouth [place] 00 :00 daily for Medical 30 days. [place] thiamine 2020-0 2020- No [id number] 100mg Take 1 Univers 100 mg 2-18 03-20 tablet by ity of tablet 00:00: 04:59 mouth [place] 00 :00 daily for Medical 30 days. [place] foLIC acid 2020-0 2020- No [id number] 1mg Take 1 Univers 1 mg tablet 2-18 03-20 tablet by it y of 00:00: 04:59 mouth [place] 00 :00 daily for Medical 30 days. [place] thiamine 2020-0 2020- No [id number] 100mg Take 1 Univers 100 mg 2-18 03-20 tablet by ity of tablet 00:00: 04:59 mouth [place] 00 :00 daily for Medical 30 days. [place] foLIC acid 2019-0 2020- No [id number] 1mg Take 1 Univers 1 mg tablet 2-18 03-20 tablet by it y of 00:00: 04:59 mouth [place] 00 :00 daily for Medical 30 days. [place] thiamine 2019-0 2020- No [id number] 100mg Take 1 Univers 100 mg 2-18 03-20 tablet by ity of tablet 00:00: 04:59 mouth [place] 00 :00 daily for Medical 30 days. [place] foLIC acid 2019-0 2020- No [id number] 1mg Take 1 Univers 1 mg tablet 2-18 03-20 tablet by it y of 00:00: 04:59 mouth [place] 00 :00 daily for Medical 30 days. [place] thiamine 2020-0 2020- No [id number] 100mg Take 1 Univers 100 mg 2-18 03-20 tablet by ity of tablet 00:00: 04:59 mouth [place] 00 :00 daily for Medical 30 days. [place] foLIC acid 2019-0 2020- No [id number] 1mg Take 1 Univers 1 mg tablet 2-18 03-20 tablet by it y of 00:00: 04:59 mouth [place] 00 :00 daily for Medical 30 days. [place] thiamine 2020-0 2020- No [id number] 100mg Take 1 Univers 100 mg 2-18 03-20 tablet by ity of tablet 00:00: 04:59 mouth [place] 00 :00 daily for Medical 30 days. [place] QUEtiapine 2019-0 2020- No 300mg Take 300 U nivers (SEROQUEL) 2-17 02-17 mg by ity of 300 mg 22:43: 00:00 mouth [place] tablet 15 :00 every Medical evening. [place] hydralAZINE 2019-0 Yes 10mg 10 mg, Univ ers (APRESOLINE 2-17 Intravenou it y of ) injection 22:39: s, PRN - [place] 10 mg 29 SEE Medical INSTRUCTIO Branch NS, Starting Thu07/04/19 at 1639, Until Discontinu ed, Routine, Hypertensi ve emergency, Hypertensi on, Q4h for SBP>160 or DBP>100 oxazepam 2019-0 2020- No 15mg 15 mg, Univer s (SERAX) 2-17 02-18 Oral, ity of capsule 15 20:00: 13:59 Q12H, 2 [place] as mg 00 :00 doses, Medical First dose Branch on Thu07/04/19 at 1400, Last dose on Thu07/04/19 at 2000, Routine morpHINE 2019-0 Yes 2mg 2 mg, Slow Uni vers injection 2 2-17 IV Push, ity of mg 18:59: Q4HPRN, [place] 52 Starting Medical [facility] Branch 07/04/19 at 1259, Until Discontinu ed, Routine, Pain (scale 7-10) lisinopril 2019-0 Yes 10mg 10 mg, Unive rs (PRINIVIL,Z 2-17 Oral, ity of ESTRIL) 18:30: DAILY, [place] tablet 10 00 First dose Medi johnson mg on [facility] Branch 07/04/19 at 1230, Until Discontinu ed, Routine LORazepam 1 2019-0 Yes [id number] 1mg Take 1 Univers mg tablet 2-17 tablet by ity o f 00:00: mouth 3 [place] 00 (three) Medical times Branch daily as needed for Anxiety or Agitation. traMADol 50 2020-0 Yes [id number] 50mg Take 1 Univers mg tablet 2-17 [id number] tablet by ity of 00:00: mouth [place] 00 every 6 Medical (six) Branch hours as needed for Pain (scale 4-6). LORazepam 1 2020-0 Yes [id number] 1mg Take 1 Univers mg tablet 2-17 tablet by ity o f 00:00: mouth 3 [place] 00 (three) Medical times Branch daily as needed for Anxiety or Agitation. traMADol 50 2020-0 Yes [id number] 50mg Take 1 Univers mg tablet 2-17 [id number] tablet by ity of 00:00: mouth [place] 00 every 6 Medical (six) Branch hours as needed for Pain (scale 4-6). LORazepam 1 2020-0 Yes [id number] 1mg Take 1 Univers mg tablet 2-17 tablet by ity o f 00:00: mouth 3 [place] 00 (three) Medical times Branch daily as needed for Anxiety or Agitation. traMADol 50 2020-0 Yes [id number] 50mg Take 1 Univers mg tablet 2-17 [id number] tablet by ity of 00:00: mouth [place] 00 every 6 Medical (six) Branch hours as needed for Pain (scale 4-6). LORazepam 1 2020-0 Yes [id number] 1mg Take 1 Univers mg tablet 2-17 tablet by ity o f 00:00: mouth 3 [place] 00 (three) Medical times Branch daily as needed for Anxiety or Agitation. traMADol 50 2020-0 Yes [id number] 50mg Take 1 Univers mg tablet 2-17 [id number] tablet by ity of 00:00: mouth [place] 00 every 6 Medical (six) Branch hours as needed for Pain (scale 4-6). LORazepam 1 2020-0 Yes [id number] 1mg Take 1 Univers mg tablet 2-17 tablet by ity o f 00:00: mouth 3 00 (three) Medical times Branch daily as needed for Anxiety or Agitation. traMADol 50 2020-0 Yes [id number] 50mg Take 1 Univers mg tablet 2-17 [id number] tablet by ity of 00:00: mouth [place] 00 every 6 Medical (six) Branch hours as needed for Pain (scale 4-6). LORazepam 1 2020-0 Yes [id number] 1mg Take 1 Univers mg tablet 2-17 tablet by ity o f 00:00: mouth 3 [place] 00 (three) Medical times Branch daily as needed for Anxiety or Agitation. traMADol 50 2020-0 Yes [id number] 50mg Take 1 Univers mg tablet 2-17 [id number] tablet by ity of 00:00: mouth [place] 00 every 6 Medical (six) Branch hours as needed for Pain (scale 4-6). LORazepam 1 2020-0 Yes [id number] 1mg Take 1 Univers mg tablet 2-17 tablet by ity o f 00:00: mouth 3 [place] 00 (three) Medical times Branch daily as needed for Anxiety or Agitation. traMADol 50 2020-0 Yes [id number] 50mg Take 1 Univers mg tablet 2-17 [id number] tablet by ity of 00:00: mouth [place] 00 every 6 Medical (six) Branch hours as needed for Pain (scale 4-6). LORazepam 1 2020-0 Yes [id number] 1mg Take 1 Univers mg tablet 2-17 tablet by ity o f 00:00: mouth 3 [place] 00 (three) Medical times Branch daily as needed for Anxiety or Agitation. traMADol 50 2020-0 Yes [id number] 50mg Take 1 Univers mg tablet 2-17 [id number] tablet by ity of 00:00: mouth [place] 00 every 6 Medical (six) Branch hours as needed for Pain (scale 4-6). LORazepam 1 2020-0 Yes [id number] 1mg Take 1 Univers mg tablet 2-17 tablet by ity o f 00:00: mouth 3 [place] 00 (three) Medical times Branch daily as needed for Anxiety or Agitation. traMADol 50 2020-0 Yes [id number] 50mg Take 1 Univers mg tablet 2-17 [id number] tablet by ity of 00:00: mouth [place] 00 every 6 Medical (six) Branch hours as needed for Pain (scale 4-6). LORazepam 1 2020-0 Yes [id number] 1mg Take 1 Univers mg tablet 2-17 tablet by ity o f 00:00: mouth 3 [place] 00 (three) Medical times Branch daily as needed for Anxiety or Agitation. traMADol 50 2020-0 Yes [id number] 50mg Take 1 Univers mg tablet 2-17 [id number] tablet by ity of 00:00: mouth [place] 00 every 6 Medical (six) Branch hours as needed for Pain (scale 4-6). LORazepam 1 2020-0 Yes [id number] 1mg Take 1 Univers mg tablet 2-17 tablet by ity o f 00:00: mouth 3 [place] 00 (three) Medical times Branch daily as needed for Anxiety or Agitation. traMADol 50 2020-0 Yes [id number] 50mg Take 1 Univers mg tablet 2-17 [id number] tablet by ity of 00:00: mouth [place] 00 every 6 Medical (six) Branch hours as needed for Pain (scale 4-6). LORazepam 1 2020-0 Yes [id number] 1mg Take 1 Univers mg tablet 2-17 tablet by ity o f 00:00: mouth 3 [place] 00 (three) Medical times Branch daily as needed for Anxiety or Agitation. traMADol 50 2020-0 Yes [id number] 50mg Take 1 Univers mg tablet 2-17 [id number] tablet by ity of 00:00: mouth [place] 00 every 6 Medical (six) Branch hours as needed for Pain (scale 4-6). LORazepam 1 2019-0 Yes [id number] 1mg Take 1 Univers mg tablet 2-17 tablet by ity o f 00:00: mouth 3 [place] 00 (three) Medical times Branch daily as needed for Anxiety or Agitation. traMADol 50 2019-0 Yes [id number] 50mg Take 1 Univers mg tablet 2-17 [id number] tablet by ity of 00:00: mouth [place] 00 every 6 Medical (six) Branch hours as needed for Pain (scale 4-6). LORazepam 1 2019-0 Yes [id number] 1mg Take 1 Univers mg tablet 2-17 tablet by ity o f 00:00: mouth 3 [place] 00 (three) Medical times Branch daily as needed for Anxiety or Agitation. traMADol 50 2019-0 Yes [id number] 50mg Take 1 Univers mg tablet 2- [id number] tablet by ity of 00:00: mouth [place] 00 every 6 Medical (six) Branch hours as needed for Pain (scale 4-6). LORazepam 1 2019- No [id number] 1mg Take 1 Univers mg tablet 2-03 03- tablet by ity of 00:00: 00:00 mouth 3 [place] 00 :00 (three) Medical times Branch daily as needed for Anxiety or Agitation. traMADol 50 2019-0 2019- No [id number] 50mg Take 1 Univers mg tablet 2-03 03- [id number] tablet by it y of 00:00: 00:00 mouth [place] 00 :00 every 6 Medical (six) Branch hours as needed for Pain (scale 4-6). LORazepam 1 2019- No [id number] 1mg Take 1 Univers mg tablet 2-17 - tablet by ity of 00:00: 00:00 mouth 3 [place] 00 :00 (three) Medical times Branch daily as needed for Anxiety or Agitation. traMADol 50 2019-0 2020- No [id number] 50mg Take 1 Univers mg tablet 2-17 - [id number] tablet by it y of 00:00: 00:00 mouth [place] 00 :00 every 6 Medical (six) Branch hours as needed for Pain (scale 4-6). lisinopril 2019- 2020- No [id number] 20mg Take 1 Univers 20 mg 2-17 -19 tablet by ity of tablet 00:00: 04:59 mouth [place] 00 :00 daily for Medical 30 days. [place] lisinopril 2020-0 2020- No [id number] 20mg Take 1 Univers 20 mg 2-17 03-19 tablet by ity of tablet 00:00: 04:59 mouth [place] 00 :00 daily for Medical 30 days. [place] lisinopril 2020-0 2020- No [id number] 20mg Take 1 Univers 20 mg 2-17 -19 tablet by ity of tablet 00:00: 04:59 mouth [place] 00 :00 daily for Medical 30 days. [place] lisinopril 2020-0 2020- No [id number] 20mg Take 1 Univers 20 mg 2-17 -19 tablet by ity of tablet 00:00: 04:59 mouth [place] 00 :00 daily for Medical 30 days. [place] lisinopril 2020-0 2020- No [id number] 20mg Take 1 Univers 20 mg 2-17 -19 tablet by ity of tablet 00:00: 04:59 mouth [place] 00 :00 daily for Medical 30 days. [place] lisinopril 2020-0 2020- No [id number] 20mg Take 1 Univers 20 mg 2-17 -19 tablet by ity of tablet 00:00: 04:59 mouth [place] 00 :00 daily for Medical 30 days. [place] KCL 2020-0 2020- No 40meq 40 mEq, Univers (KLOR-CON 2-16 02-16 Oral, ity of M20) tablet 23:30: 23:12 ONCE, 1 [place] 40 mEq 00 :00 dose, [facility] 07/03/19 at Branch 1730, Routine enoxaparin 2020-0 Yes 40mg 40 mg, Unive rs (LOVENOX) 2-16 Subcutaneo ity of injection 15:00: [place], DAILY, [place] 40 mg 00 First dose Medical on [facility] 07/03/19 at 0900, Until Discontinu ed, Routine thiamine 2020-0 Yes 100mg 100 mg, Unive rs (VITAMIN 2-16 Oral, ity of B1) tablet 15:00: DAILY, [place] 100 mg 00 First dose Medical on [facility] 07/03/19 at 0900, Until Discontinu ed, Routine thiamine 2020-0 Yes IV Univers (VITAMIN 2-16 Infusion, ity of B1) 100 mg, 15:00: at 125 [place] foLIC acid 00 mL/hr, Medical (FOLATE) 1 DAILY, Branch mg, First dose [place]ivit[place] on [place] 07/03/19 at (INFUVITE 0900, ADULT) Until 3,300 unit- Discontinu 150 mcg/10 ed, 1,000 mL 10 mL in mL NaCl 0.45% (1/2NS) IV Solution aspirin 2020-0 Yes 81mg 81 mg, Univers chewable 2-16 Oral, ity of tablet 81 15:00: DAILY, [place] mg 00 First dose Medical on [facility] 07/03/19 at 0900, Until Discontinu ed, Routine foLIC acid 2020-0 Yes 1mg 1 mg, Univer s (FOLATE) 2-16 Oral, ity of tablet 1 mg 15:00: DAILY, [place] 00 First dose Medical on [facility] 07/03/19 at 0900, Until Discontinu ed, Routine LORazepam 2020-0 Yes 1mg 1 mg, Slow Un luis alfredo (ATIVAN) 2-16 IV Push, ity of injection 1 03:05: Q4HPRN, [place] as mg 01 Starting Medical [facility] 07/02/19 at 2105, Until Discontinu ed, Routine, Anxiety, Agitation, Sedation mirtazapine 2020-0 Yes 30mg 30 mg, Univ ers (REMERON) 2-16 Oral, QHS, ity of tablet 30 03:00: First dose [place] mg 00 on [facility] 07/02/19 at Branch 2100, Until Discontinu ed, Routine atorvastati 2020-0 Yes 40mg 40 mg, Univ ers n (LIPITOR) 2-16 Oral, QHS, it y of tablet 40 03:00: First dose [place] mg 00 on [facility] 07/02/19 at Branch 2100, Until Discontinu ed, Routine metoprolol 2020-0 Yes 50mg 50 mg, Unive rs tartrate 2-16 Oral, BID, ity o f (LOPRESSOR) 02:00: First dose [place] tablet 50 00 on [facility] 07/02/19 at Branch 2000, Until Discontinu ed, Routine gabapentin 2020-0 Yes 600mg 600 mg, Uni vers (NEURONTIN) 2-16 Oral, TID, it y of capsule 600 02:00: First dose [place] mg 00 on [facility] 07/02/19 at Branch 2000, Until Discontinu ed, Routine HYDROmorpho 2020-0 2020- No 1mg 1 mg, Slow Univers ne 07-02 IV Push, ity of (DILAUDID) 22:49: 19:00 Q4HPRN, [place] as injection 1 40 :08 Starting Medi johnson mg Sat Branch 07/02/19 at 1649, Until 07/04/19 at 1300, Routine, Pain (scale 7-10)
U se approved by (Faculty): ADC PROVIDER FENTanyl PF 2019- 2020- No 75ug 75 mcg, Un luis alfredo (SUBLIMAZE 07-02 Slow IV ity o f (PF)) 21:30: 20:33 Push, [place] injection 00 :00 ONCE, 1 Medical 75 mcg dose, Sat Branch 07/02/19 at 1530, STAT acetaminoph 2019-2019- No 1000mg 1,000 mg, Univers en 07-02 Oral, ity of (TYLENOL) 21:15: 20:08 ONCE, 1 [place] tablet 00 :00 dose, Sat Medical 1,000 mg 07/02/19 at [facility] h 1515, IDA LORazepam 2019-2019- No 1mg 1 mg, Univer s (ATIVAN) 07-02 Oral, ity of tablet 1 mg 21:15: 20:08 ONCE, 1 [place] 00 :00 dose, Sat Medical 07/02/19 at Branch 1515, IDA ondansetron 2019-0 Yes 4mg 4 mg, Slow Univers (ZOFRAN 2-15 IV Push, ity of (PF)) 21:11: Q6HPRN, [place] injection 4 50 Starting Medi johnson mg Sat Branch 07/02/19 at 1511, Until Discontinu ed, Routine, Nausea and Vomiting (N/V) morpHINE 2019-0 2020- No 2mg 2 mg, Slow Un luis alfredo injection 2 07-02 IV Push, ity of mg 21:11: 03:09 Q4HPRN, [place] 40 :25 Starting Medical Sat Branch 07/02/19 at 1511, Until 07/02/19 at 2109, Routine, Pain (scale 7-10) HYDROcodone 2019-0 2020- No 1{tbl} 1 tablet, Univers -acetaminop 07-02 Oral, ity of hen (NORCO 21:11: 21:10 Q6HPRN, [place] as 5) 5-325 mg 38 :38 Starting Medi johnson tablet 1 Sat Branch tablet 07/02/19 at 1511, Until 07/04/19 at 1510, Routine, Pain (scale 4-6) acetaminoph 2020-0 Yes 650mg 650 mg, Un luis alfredo en 2-15 Oral, ity of (TYLENOL) 21:11: Q6HPRN, [place] tablet 650 35 Starting Medic al mg Sat Branch 07/02/19 at 1511, Until Discontinu ed, Routine, Pain (scale 1-3) ketorolac 2019-0 2020- No 30mg 30 mg, Unive rs (TORADOL) 07-02-15 Slow IV ity of injection 19:15: 18:09 Push, [place] 30 mg 00 :00 ONCE, 1 Medical dose, Sat Branch 07/02/19 at 1315, IDA
Fa culty member approving Restricted medication : DWIGHT NOEL LORazepam 2019-0 2020- No 1mg 1 mg, Slow U nivers (ATIVAN) 07-02 IV Push, ity of injection 1 19:00: [...] Medical evening. Branch aspirin 81 2020-0 Yes [id number] 81mg Take 1 U nivers mg chewable 1-01 tablet by ity of tablet 00:00: mouth [place] 00 daily. Medical Branch aspirin 81 2020-0 Yes [id number] 81mg Take 1 U nivers mg chewable 1-01 tablet by ity of tablet 00:00: mouth [place] 00 daily. Medical Branch aspirin 81 2020-0 Yes [id number] 81mg Take 1 U nivers mg chewable 1-01 tablet by ity of tablet 00:00: mouth [place] 00 daily. Medical Branch aspirin 81 2020-0 Yes [id number] 81mg Take 1 U nivers mg chewable 1-01 tablet by ity of tablet 00:00: mouth [place] 00 daily. Medical Branch aspirin 81 2020-0 Yes [id number] 81mg Take 1 U nivers mg chewable 1-01 tablet by ity of tablet 00:00: mouth [place] 00 daily. Medical Branch aspirin 81 2020-0 Yes [id number] 81mg Take 1 U nivers mg chewable 1-01 tablet by ity of tablet 00:00: mouth [place] 00 daily. Medical Branch aspirin 81 2020-0 Yes [id number] 81mg Take 1 U nivers mg chewable 1-01 tablet by ity of tablet 00:00: mouth [place] 00 daily. Medical Branch aspirin 81 2020-0 Yes [id number] 81mg Take 1 U nivers mg chewable 1-01 tablet by ity of tablet 00:00: mouth [place] 00 daily. Medical Branch aspirin 81 2020-0 Yes [id number] 81mg Take 1 U nivers mg chewable 1-01 tablet by ity of tablet 00:00: mouth [place] 00 daily. Medical Branch aspirin 81 2019- No [id number] 81mg Take 1 Univers mg chewable 05-18 tablet by it y of tablet 00:00: 00:00 mouth [place] 00 :00 daily. Medical Branch lisinopril 2019- No [id number] 2.5mg Take 1 Univers 2.5 mg 05-18 tablet by ity of tablet 00:00: 00:00 mouth [place] 00 :00 daily. Medical Branch lisinopril 2019- No [id number] 2.5mg Take 1 Univers 2.5 mg 05-18 tablet by ity of tablet 00:00: 00:00 mouth [place] 00 :00 daily. Medical Branch atorvastati 2018-05 Yes [id number] 40mg Take 1 Univers n 40 mg 2-31 tablet by ity of tablet 00:00: mouth at [place] 00 bedtime. Medical Branch nitroglycer 2018-[id number] 1 Univers in 0.3 mg 2-31 tablet ity of sublingual 00:00: under the [place] tablet 00 tongue Medical every 5 Branch (five) minutes as needed for Chest pain. metoprolol 2018-05 Yes [id number] 50mg Take 1 U nivers tartrate 50 2-31 tablet by ity of mg tablet 00:00: mouth 2 [place] (two) Medical times Branch daily. atorvastati 2018-05 Yes [id number] 40mg Take 1 Univers n 40 mg 2-31 tablet by ity of tablet 00:00: mouth at [place] 00 bedtime. Medical Branch nitroglycer 2018-[id number] 1 Univers in 0.3 mg 2-31 tablet ity of sublingual 00:00: under the [place] tablet 00 tongue Medical every 5 Branch (five) minutes as needed for Chest pain. metoprolol 2018-05 Yes [id number] 50mg Take 1 U nivers tartrate 50 2-31 tablet by ity of mg tablet 00:00: mouth 2 [place] 00 (two) Medical times Branch daily. atorvastati 2018-05 Yes [id number] 40mg Take 1 Univers n 40 mg 2-31 tablet by ity of tablet 00:00: mouth at [place] 00 bedtime. Medical Branch nitroglycer 2018-[id number] 1 Univers in 0.3 mg 2-31 tablet ity of sublingual 00:00: under the [place] tablet 00 tongue Medical every 5 Branch (five) minutes as needed for Chest pain. metoprolol 2018-05 Yes [id number] 50mg Take 1 U nivers tartrate 50 2-31 tablet by ity of mg tablet 00:00: mouth 2 (two) Medical times Branch daily. atorvastati 2018-05 Yes [id number] 40mg Take 1 Univers n 40 mg 2-31 tablet by ity of tablet 00:00: mouth at [place] bedtime. Medical Branch nitroglycer 2018-[id number] 1 Univers in 0.3 mg 2-31 tablet ity of sublingual 00:00: under the [place] tablet 00 tongue Medical every 5 Branch (five) minutes as needed for Chest pain. metoprolol 2018-05 Yes [id number] 50mg Take 1 U nivers tartrate 50 2-31 tablet by ity of mg tablet 00:00: mouth 2 (two) Medical times Branch daily. atorvastati 2018-05 Yes [id number] 40mg Take 1 Univers n 40 mg 2-31 tablet by ity of tablet 00:00: mouth at [place] bedtime. Medical Branch nitroglycer 2018-[id number] 1 Univers in 0.3 mg 2-31 tablet ity of sublingual 00:00: under the [place] tablet 00 tongue Medical every 5 Branch (five) minutes as needed for Chest pain. metoprolol 2018-05 Yes [id number] 50mg Take 1 U nivers tartrate 50 2-31 tablet by ity of mg tablet 00:00: mouth 2 (two) Medical times Branch daily. atorvastati 2018-05 Yes [id number] 40mg Take 1 Univers n 40 mg 2-31 tablet by ity of tablet 00:00: mouth at [place] [id number] bedtime. Medical Branch nitroglycer 2018-[id number] 1 Univers in 0.3 mg 2-31 tablet ity of sublingual 00:00: under the [place] tablet 00 tongue Medical every 5 Branch (five) minutes as needed for Chest pain. nitroglycer 2018-[id number] 1 Univers in 0.3 mg 2-31 tablet ity of sublingual 00:00: under the [place] tablet 00 tongue Medical every 5 Branch (five) minutes as needed for Chest pain. oxazepam 15 2018-05 Yes [id number] 15mg Take 1 Univers mg capsule 2-31 capsule by ity of 00:00: mouth [place] 00 every 4 Medical (four) Branch hours as needed for Anxiety. PRN nitroglycer 2018-[id number] 1 Univers in 0.3 mg 2-31 tablet ity of sublingual 00:00: under the [place] tablet 00 tongue Medical every 5 Branch (five) minutes as needed for Chest pain. nitroglycer 2018-[id number] 1 Univers in 0.3 mg 2-31 tablet ity of sublingual 00:00: under the [place] tablet 00 tongue Medical every 5 Branch (five) minutes as needed for Chest pain. metoprolol 2018-05 Yes [id number] 50mg Take 1 U nivers tartrate 50 2-31 tablet by ity of mg tablet 00:00: mouth 00 (two) Medical times Branch daily. nitroglycer 2018-[id number] 1 Univers in 0.3 mg 2-31 tablet ity of sublingual 00:00: under the [place] tablet 00 tongue Medical every 5 Branch (five) minutes as needed for Chest pain. nitroglycer 2018-[id number] 1 Univers in 0.3 mg 2-31 tablet ity of sublingual 00:00: under the [place] tablet 00 tongue Medical every 5 Branch (five) minutes as needed for Chest pain. nitroglycer 2018-[id number] 1 Univers in 0.3 mg 2-31 tablet ity of sublingual 00:00: under the [place] tablet 00 tongue Medical every 5 Branch (five) minutes as needed for Chest pain. nitroglycer 2018-[id number] 1 Univers in 0.3 mg 2-31 tablet ity of sublingual 00:00: under the [place] tablet 00 tongue Medical every 5 Branch (five) minutes as needed for Chest pain. nitroglycer 2018-[id number] 1 Univers in 0.3 mg 2-31 tablet ity of sublingual 00:00: under the [place] tablet 00 tongue Medical every 5 Branch (five) minutes as needed for Chest pain. atorvastati 2018-05 Yes [id number] 40mg Take 1 Univers n 40 mg 2-31 tablet by ity of tablet 00:00: mouth at [place] 00 bedtime. Medical Branch nitroglycer 2018-[id number] 1 Univers in 0.3 mg 2-31 tablet ity of sublingual 00:00: under the [place] tablet 00 tongue Medical every 5 Branch (five) minutes as needed for Chest pain. oxazepam 2018-05 Yes [id number] 15mg Take 1 Univers mg capsule 2-31 capsule by ity of 00:00: mouth [place] 00 every 4 Medical (four) Branch hours as needed for Anxiety. PRN metoprolol 2018-05 Yes [id number] 50mg Take 1 U nivers tartrate 50 2-31 tablet by ity of mg tablet 00:00: mouth 2 [place] (two) Medical times Branch daily. atorvastati 2018-05 Yes [id number] 40mg Take 1 Univers n 40 mg 2-31 tablet by ity of tablet 00:00: mouth at [place] 00 bedtime. Medical Branch nitroglycer 2018-[id number] 1 Univers in 0.3 mg 2-31 tablet ity of sublingual 00:00: under the [place] tablet 00 tongue Medical every 5 Branch (five) minutes as needed for Chest pain. oxazepam 2018-05 Yes [id number] 15mg Take 1 Univers mg capsule 2-31 capsule by ity of 00:00: mouth [place] 00 every 4 Medical (four) Branch hours as needed for Anxiety. PRN metoprolol 2018-05 Yes [id number] 50mg Take 1 U nivers tartrate 50 2-31 tablet by ity of mg tablet 00:00: mouth 2 [place] 00 (two) Medical times Branch daily. atorvastati 2018-05 Yes [id number] 40mg Take 1 Univers n 40 mg 2-31 tablet by ity of tablet 00:00: mouth at [place] 00 bedtime. Medical Branch nitroglycer 2018-[id number] 1 Univers in 0.3 mg 2-31 tablet ity of sublingual 00:00: under the [place] tablet 00 tongue Medical every 5 Branch (five) minutes as needed for Chest pain. metoprolol 2018-05 Yes [id number] 50mg Take 1 U nivers tartrate 50 2-31 tablet by ity of mg tablet 00:00: mouth 2 [place] 00 (two) Medical times Branch daily. nitroglycer 2018-05- No [id number] .3mg Place 1 Univers in 0.3 mg 02-20 tablet ity of sublingual 00:00: 00:00 under the [place] tablet 00 :00 tongue Medical every 5 Branch (five) minutes as needed for Chest pain. nitroglycer 2018-05- No [id number] .3mg Place 1 Univers in 0.3 mg 02-20 tablet ity of sublingual 00:00: 00:00 under the [place] tablet 00 :00 tongue Medical every 5 Branch (five) minutes as needed for Chest pain. atorvastati 2018-05- No [id number] 40mg Take 1 Univers n 40 mg 08-16 tablet by ity of tablet 00:00: 00:00 mouth at [place] 00 :00 bedtime. Medical Branch metoprolol 2018-05- No [id number] 50mg Take 1 Univers tartrate 50 08-16 tablet by it y of mg tablet 00:00: 00:00 [place] :[place] (two) Medical times Branch daily. oxazepam 15 2018-05 2020- No [id number] 15mg Take 1 Univers mg capsule 07-04 capsule by it y of 00:00: 00:00 mouth [place] 00 :00 every 4 Medical (four) Branch hours as needed for Anxiety. PRN Vital Signs Vital Name Observation Time Observation Value Comments Source Systolic blood 2021-12-09 02:22:00 119 mm[Hg] Univer sity of pressure [facility] Diastolic blood 2021-12-09 02:22:00 81 mm[Hg] Unive [facility] Heart rate 2021-12-09 02:22:00 94 /min [facility] Body temperature 2021-12-09 02:22:00 36.67 Kaylee [facility] 2021-12-09 02:22:00 18 /min [facility] Body height 2021-12-09 02:22:00 177.8 cm [facility] Body weight 2021-12-09 02:22:00 79.379 kg Universi ty of [place] [facility] BMI 2021-12-09 02:22:00 25.11 kg/m2 Universi ty [facility] [place] [facility] Oxygen saturation in 2021-12-09 02:22:00 99 /min University of Arterial blood by [facility] johnson Pulse oximetry Branch Systolic blood 2020-02-21 13:56:00 130 mm[Hg] Univer sity of pressure [place] [facility] Diastolic blood 2020-02-21 13:56:00 85 mm[Hg] Unive rsity of pressure [place] [facility] Heart rate 2020-02-21 13:55:00 68 /min [facility]i ty [facility] [place] [facility] Respiratory rate 2020-02-21 13:55:00 19 /min Univ ersity of [place] [facility] Body height 2020-02-21 13:55:00 177.8 cm [facility]i ty [facility] [place] [facility] Body weight 2020-02-21 13:55:00 96.117 kg [facility]i ty [facility] [place] [facility] BMI 2020-02-21 13:55:00 30.40 kg/m2 Universi ty of [place] [facility] Oxygen saturation in 2020-02-21 13:55:00 98 /min University of Arterial blood by [place] [facility] Pulse oximetry Branch Systolic blood 2019-11-18 14:41:00 147 mm[Hg] Univer sity of pressure [place] [facility] Diastolic blood 2019-11-18 14:41:00 88 mm[Hg] Unive rsity of pressure [place] [facility] Heart rate 2019-11-18 14:41:00 103 /min [facility]i ty [facility] [place] [facility] Body temperature 2019-11-18 14:41:00 37.17 Kaylee Univ ersity of [place] [facility] Respiratory rate 2019-11-18 14:41:00 18 /min Univ ersity of [place] [facility] Body height 2019-11-18 14:41:00 177.8 cm Universi ty of [place] [facility] Body weight 2019-11-18 14:41:00 106.595 kg [facility]i ty [facility] [place] [facility] BMI 2019-11-18 14:41:00 33.72 kg/m2 Universi ty of [place] [facility] Oxygen saturation in 2019-11-18 14:41:00 98 /min University of Arterial blood by [place] [facility] Pulse oximetry Branch Systolic blood 2019-11-18 14:41:00 147 mm[Hg] Univer sity of pressure [place] [facility] Diastolic blood 2019-11-18 14:41:00 88 mm[Hg] Unive rsity of pressure [place] [facility] Heart rate 2019-11-18 14:41:00 103 /min Universi ty [facility] [place] [facility] Body temperature 2019-11-18 14:41:00 37.17 Kaylee Univ ersity of [place] [facility] Respiratory rate 2019-11-18 14:41:00 18 /min Univ ersity of [place] [facility] Body height 2019-11-18 14:41:00 177.8 cm [facility]i ty [facility] [place] [facility] Body weight 2019-11-18 14:41:00 106.595 kg [facility]i ty [facility] [place] [facility] BMI 2019-11-18 14:41:00 33.72 kg/m2 [facility]i ty [facility] [place] [facility] Oxygen saturation in 2019-11-18 14:41:00 98 /min University of Arterial blood by [place] [facility] Pulse oximetry Branch Systolic blood 2019-07-10 23:35:00 153 mm[Hg] Univer sity of pressure [place] [facility] Diastolic blood 2019-07-10 23:35:00 83 mm[Hg] Unive rsity of pressure [place] [facility] Heart rate 2019-07-10 23:35:00 90 /min [facility]i ty [facility] [place] [facility] Body temperature 2019-07-10 23:35:00 36.67 Kaylee Univ ersity of [place] [facility] Respiratory rate 2019-07-10 23:35:00 18 /min Univ ersity of [place] [facility] Body height 2019-07-10 23:35:00 177.8 cm [facility] [place] [facility] Body weight 2019-07-10 23:35:00 117.935 kg [facility] [place] [facility] BMI 2019-07-10 23:35:00 37.31 kg/m2 [facility] [place] [facility] Oxygen saturation in 2019-07-10 23:35:00 96 /min University of Arterial blood by [place] [facility] Pulse oximetry Branch Systolic blood 2019-07-10 23:35:00 153 mm[Hg] Univer sity of pressure [place] [facility] Diastolic blood 2019-07-10 23:35:00 83 mm[Hg] Unive rsity of pressure [place] [facility] Heart rate 2019-07-10 23:35:00 90 /min [facility]i ty [facility] [place] [facility] Body temperature 2019-07-10 23:35:00 36.67 Kaylee Univ ersity of [place] [facility] Respiratory rate 2019-07-10 23:35:00 18 /min Univ ersity of [place] [facility] Body height 2019-07-10 23:35:00 177.8 cm [facility] [place] [facility] Body weight 2019-07-10 23:35:00 117.935 kg [facility] [place] [facility] BMI 2019-07-10 23:35:00 37.31 kg/m2 [facility] [place] [facility] Oxygen saturation in 2019-07-10 23:35:00 96 /min University of Arterial blood by [place] [facility] Pulse oximetry Branch Systolic blood 2019-07-04 21:00:00 158 mm[Hg] Univer sity of pressure [place] [facility] Diastolic blood 2019-07-04 21:00:00 106 mm[Hg] Unive rsity of pressure [place] [facility] Heart rate 2019-07-04 21:00:00 98 /min [facility] [place] [facility] Body temperature 2019-07-04 21:00:00 36.67 Kaylee Univ [facility] [place] [facility] Respiratory rate 2019-07-04 21:00:00 20 /min Univ ersity of [place] [facility] Oxygen saturation in 2019-07-04 21:00:00 99 /min University of Arterial blood by [place] [facility] Pulse oximetry Branch Body height 2019-07-02 21:10:00 177.8 cm [facility]i ty [facility] [place] [facility] Body weight 2019-07-02 21:10:00 117.935 kg [facility] [place] [facility] BMI 2019-07-02 21:10:00 37.31 kg/m2 [facility] [place] [facility] Systolic blood 2019-07-04 21:00:00 158 mm[Hg] Univer sity of pressure [place] [facility] Diastolic blood 2019-07-04 21:00:00 106 mm[Hg] Unive rsity of pressure [place] [facility] Heart rate 2019-07-04 21:00:00 98 /min [facility]i ty [facility] [place] [facility] Body temperature 2019-07-04 21:00:00 36.67 Kaylee Univ ersity [facility] [place] [facility] Respiratory rate 2019-07-04 21:00:00 20 /min Univ ersity of [place] [facility] Oxygen saturation in 2019-07-04 21:00:00 99 /min University of Arterial blood by [place] [facility] Pulse oximetry Branch Body height 2019-07-02 21:10:00 177.8 cm [facility]i ty [facility] [place] [facility] [place] Body weight 2019-07-02 21:10:00 117.935 kg [facility] [place] [facility] BMI 2019-07-02 21:10:00 37.31 kg/m2 [facility] [place] [facility] Systolic blood 2019-06-01 19:53:00 130 mm[Hg] Univer sity of pressure [facility] Diastolic blood 2019-06-01 19:53:00 90 mm[Hg] Unive rsity of pressure [facility] Heart rate 2019-06-01 19:53:00 78 /min Universi ty of [facility] Respiratory rate 2019-06-01 19:53:00 19 /min Univ ersity of [facility] Body height 2019-06-01 19:53:00 177.8 cm Universi ty of [facility] Body weight 2019-06-01 19:53:00 122.154 kg Universi ty of [facility] BMI 2019-06-01 19:53:00 38.64 kg/m2 Universi ty of [facility] Oxygen saturation in 2019-06-01 19:53:00 97 /min University of Arterial blood by [place] [facility] Pulse oximetry Branch Systolic blood 2019-06-01 19:53:00 130 mm[Hg] Univer sity of pressure [facility] Diastolic blood 2019-06-01 19:53:00 90 mm[Hg] Unive rsity of pressure [facility] Heart rate 2019-06-01 19:53:00 78 /min Universi ty of [facility] Respiratory rate 2019-06-01 19:53:00 19 /min Univ ersity of [facility] Body height 2019-06-01 19:53:00 177.8 cm [facility] ty [facility] [place] [facility] [place] Body weight 2019-06-01 19:53:00 122.154 kg [facility] ty [facility] [place] [facility] BMI 2019-06-01 19:53:00 38.64 kg/m2 Universi ty of [facility] Oxygen saturation in 2019-06-01 19:53:00 97 /min University of Arterial blood by [place] [facility] Pulse oximetry Branch Procedures Procedure Date / Time Performing Clinician Source Performed XR CHEST 1 VW 2021-12-09 02:40:45 Zaki Galvan [facility] LIPASE 2021-12-09 02:32:00 Zaki Galvan [facility] TROPONIN I 2021-12-09 02:32:00 Zaki Galvan [facility] COMP. METABOLIC PANEL 2021-12-09 02:32:00 Zaki Galvan [facility] ([id number]) Medical Branch CBC WITH DIFF 2021-12-09 02:32:00 Zaki Galvan [facility] PROTHROMBIN TIME / INR 2021-12-09 02:32:[address] [facility] COVID-19 (ID NOW RAPID 2021-12-09 02:32:00 [facility] TESTING) Medical Branch CONSENT/REFUSAL FOR 2021-12-09 02:17:21 Doctor Unassigned, No [facility] [place] DIAGNOSIS AND TREATMENT Name Medical Branch EXTERNAL PROVIDER - ADC 2020-02-08 05:01:00 Doctor Unassigned, N o [facility] CARDIOLOGY Name Medical Branch NOTICE OF PRIVACY 2019-11-18 14:36:16 Doctor Unassigned, No [facility] PRACTICES Name Medical Branch CONSENT/REFUSAL FOR 2019-11-18 14:36:00 Doctor Unassigned, No [facility] [place] DIAGNOSIS AND TREATMENT Name Medical Branch NOTICE OF PRIVACY 2019-07-10 23:30:15 Doctor Unassigned, No [facility] PRACTICES Name Medical Branch CONSENT/REFUSAL FOR 2019-07-10 23:29:51 Doctor Unassigned, No [facility] [place] DIAGNOSIS AND TREATMENT Name Medical Branch MAGNESIUM 2019-07-04 18:37:00 Geoffrey [facility] BASIC METABOLIC PANEL 2019-07-04 18:37:00 Geoffrey [facility] (NA, K, CL, CO2, Medical Branch GLUCOSE, BUN, CREATININE, CA) MAGNESIUM 2019-07-03 07:55:00 Geoffrey [facility] TROPONIN I 2019-07-03 07:55:00 Geoffrey [facility] BASIC METABOLIC PANEL 2019-07-03 07:55:[facility] ([facility], K, CL, CO2, Medical Branch GLUCOSE, BUN, CREATININE, CA) CBC WITH DIFFERENTIAL 2019-07-03 07:55:00 Desean Hale [facility] TROPONIN I 2019-07-02 23:18:00 Geoffrey [facility] ADC / LCC - DRUG SCREEN 2019-07-02 19:50:00 Dwight Noel [facility] TRIAGE [facility] XR RIBS 3 VW LEFT 2019-07-02 18:57:39 Dwight Noel [facility] XR CHEST 1 VW 2019-07-02 18:46:06 Dwight Noel [facility] LIPASE 2019-07-02 18:14:00 Dwight Noel [facility] MAGNESIUM 2019-07-02 18:14:00 Bert Dwight [facility] TROPONIN I 2019-07-02 18:14:00 Bert Dwight [facility] HEPATIC FUNCTION PANEL 2019-07-02 18:14:00 Dwight Noel [facility] ([id number]) (ALB,T.PRO,BILI [facility] T,BU/BC,ALT,AST,ALK PHOS) BASIC METABOLIC PANEL 2019-07-02 18:14:00 Dwight Noel [facility] (NA, K, CL, CO2, Medical Branch GLUCOSE, BUN, CREATININE, CA) ETHANOL 2019-07-02 18:14:00 Dwight Noel [facility] CBC WITH DIFFERENTIAL 2019-07-02 18:14[facility] PROTHROMBIN TIME / INR 2019-07-02 18:14:00 Dwight Noel [facility] ACTIVATED PARTIAL 2019-07-02 18:14:00 [facility] GIL [facility] N-TERMINAL PRO-BNP 2019-07-02 18:14:00 Dwight Noel [facility] EKG-12 LEAD 2019-07-02 17:45:17 Dwight Noel [facility] Encounters Start End Encounter Admission Attending Care Care Encounter Source Date/Time Date/Time Type Type Clinicians Facility Department ID 2022-02-28 Outpatient [facility] [id number] [place] 06:34:54 [id number] [facility] 2022-02-27 Outpatient [facility] [id number] [place] 14:33:13 [id number] [facility] 2022-02-13 Outpatient Moura, STLMLC STLMLC Common 16:02:01 Indra [facility] 2022-01-24 Outpatient Moura, STLMLC STLMLC Common 10:37:00 Indra [facility] 2022-01-22 Outpatient Moura, STLMLC STLMLC Common 11:29:01 Indra [facility] 2021-08-16 Outpatient BAYTN SMITATN [id number] [place] 14:59:50 [id number] [facility] 2021-08-14 [facility] [id number] [place] 13:27:24 [id number] [facility] 2021-06-12 Outpatient Moura, STLMLC STLC Common 14:30:57 Indra [facility] 2021-06-12 Outpatient Moura, STLMLC STLMLC Common 14:25:40 Indra [id number] [facility] 2021-06-12 Outpatient Moura, STLMLC STLMLC Common 13:50:26 Indra [id number] [facility] 2021-06-12 Outpatient Moura, STLMLC STLMLC Common 13:25:25 Indra [id number] [facility] 2021-06-12 Outpatient Moura, STLMLC STLMLC Common 13:10:24 Indra [id number] [facility] 2021-06-12 Outpatient Moura, STLMLC STLMLC Common 12:58:21 Indra [id number] [facility] 2021-06-12 Outpatient Moura, STLMLC STLMLC Common 12:47:41 Indra [id number] [facility] 2021-06-12 Outpatient Moura, STLMLC STLMLC Common 12:27:06 Indra [id number] [facility] 2021-06-12 Outpatient Moura, STLMLC STLMLC [id number] Common 12:26:55 Indra [id number] [facility] 2021-06-12 Outpatient Moura, STLMLC STLC [id number] Common 12:26:34 Indra [id number] [facility] 2021-06-12 Outpatient Moura, STLMLC STLC [id number] Common 12:24:18 Indra [id number] [facility] 2021-06-12 Outpatient Moura, STLMLC STLC [id number] Common 12:22:57 Indra 27000 [facility] 2021-06-12 Outpatient Stan, Fern[facility] [id number] Common 11:41:54 Read [id number] [facility] 2021-06-12 Outpatient Millender, STLMLC STLC [id number] Common 11:36:22 Blanquita 89972 [facility] 2021-06-12 Outpatient Devine, STLMLC [facility] [id number] Common 11:18:04 Debbie [id number] [facility] 2021-03-15 Emergency [facility] [id number] Univers 04:29:04 ity [facility] 2016-06-11 Inpatient C [facility] [id number] [facility]. 15:30:00 [facility] 2021-12-08 2021-12-08 Emergency X Avtar MUÑOZ [facility] ERT [id number] Univers 21:17:00 22:10:00 ity of [facility] 2021-12-08 2021-12-08 Emergency Avtar Muñoz [facility] [id number] Univers 21:17:00 22:10:00 Caryn TELLO [id number] i ty cliff ADORNO [id number] [facility] [id number] [place] [address] Branch 2021-04-26 2021-04-26 [facility] [id number] Univers 00:00:00 00:00:00 Melchor TELLO [id number] ity [id number] [id number] [place] [id number] [facility] 2020-08-01 2020-08-01 [facility] [id number] Univers 00:00:00 00:00:00 Qiazuleima [place] [id number] [id number] [phone] [address] 2020-05-14 2020-05-14 Refill [facility] [id number] Univers 00:00:00 00:00:00 Qiazuleima [place] [id number] [id number] [phone] [address] 2020-02-21 2020-02-21 Office [facility] [id number] Univers 08:44:09 09:23:32 Visit Dianne Tello [id number] [place] [id number] [phone] [address] 2020-02-21 2020-02-21 Outpatient R ALEXANDRA [facility] [id number] Univers 09:00:00 09:00:00 SENDIL ity of [facility] 2020-02-08 2020-02-08 Telephone [facility] 1.2.738.823 [id number] Univers 00:00:00 00:00:00 Melchor Tello 350.1.13.10 [place] [phone] [address] 2020-02-08 2020-02-08 Orders Doctor MEEKS 1.2.840.114 [id number] Univers 00:00:00 00:00:00 Only Unassigned, DELROY 350.1.13.10 ity of [place] [facility] 4.2.7.2.686 Akbar as [phone] [address] 2020-01-27 2020-01-27 Refill Baltazar, [facility] 1.2.840.114 [id number] Univers 00:00:00 00:00:00 Qianguzma Shafter 350.1.13.10 [place] [phone] [address] 2020-01-10 2020-01-10 Telephone [facility], [facility] 1.2.164.067 [id number] Univers 00:00:00 00:00:00 Qianguzma Shafter 350.1.13.10 [place] [phone] [address] 2019-11-18 2019-11-18 Emergency Zuniga, [facility] 1.2.026.099 [id number] [facility] 09:42:51 11:00:00 Anselmo Macdonaldton 350.1.13.10 i [place] [phone] [facility] [address] [place] [address] 2019-11-18 2019-11-18 Emergency Zuniga, [facility] 1.2.978.525 [id number] 0027 09:42:51 11:00:00 Anselmo Shafter 350.1.13.10 [place] 4.2.7.2.686 [place]eves [phone] [facility] 2019-10-23 2019-10-23 Telephone [facility], [facility] 1.2.748.360 [id number] Univers 00:00:00 00:00:00 Qiazuleima Shafter 350.1.13.10 [place] [phone] [address] 2019-10-23 2019-10-23 Telephone [facility], [facility] 1.2.951.086 [id number] 00:00:00 00:00:00 Qianguzma Shafter 350.1.13.10 [place] 4.2.7.2.686 Professio [phone] [address] 2019-09-21 2019-09-21 Telephone [facility], [facility] 1.2.468.828 [id number] Univers 00:00:00 00:00:00 Qiazuleima Shafter 350.1.13.10 [place] [phone] [address] 2019-09-21 2019-09-21 Telephone [facility] 1.2.150.482 [id number] 00:00:00 00:00:00 Qiaurmilajun Shafter 350.1.13.10 [place] 4.2.7.2.686 Professio [phone] [address] 2019-08-17 2019-08-17 Telemedici [facility] 1.2.840.114 [id number] [facility] 14:22:37 15:02:11 ne Visit Melchor Macdonaldton 350.1.13.10 [place] [phone] [address] 2019-08-17 2019-08-17 [facility] 1.2.840.114 [id number] 14:22:37 15:02:11 ne Visit Melchor Macdonaldton 350.1.13.10 [place] 4.2.7.2.686 Professio [phone] [address] 2019-08-17 2019-08-17 Outpatient R [facility] [id number] Univers 14:40:00 14:40:00 ERIKAUZMA ity o f [facility] 2019-07-27 2019-07-27 [facility] 1.2.815.938 [id number] [facility] 00:00:00 00:00:00 Melchor Macdonaldton 350.1.13.10 [place] [phone] [address] 2019-07-27 2019-07-27 [facility] 1.2.416.111 [id number] 00:00:00 00:00:00 Qiaurmilajun Shafter 350.1.13.10 [place] 4.2.7.2.686 Professio [phone] [address] 2019-07-10 2019-07-10 Emergency Zuniga, [facility] 1.2.339.214 [id number] Univers 17:33:57 18:51:00 Anselmo Tello 350.1.13.10 [place] [phone] [facility] [address] [place] [address] 2019-07-10 2019-07-10 Emergency Zuniga, [facility] 1.2.981.521 [id number] 17:33:57 18:51:00 Anselmo Tello 350.1.13.10 [place] 4.2.7.2.686 [place] [phone] [facility] 2019-07-10 2019-07-10 Orders Doctor JEANNA 1.2.840.114 [id number] Univers 00:00:00 00:00:00 Only Unassigned, DELROY 350.1.13.10 ity of [place] [facility] 4.2.7.2.686 Akbar as [phone] [address] 2019-07-10 2019-07-10 Orders Doctor JEANNA 1.2.840.114 [id number] 00:00:00 00:00:00 Only Unassigned, [place] 350.1.13.10 [place] [facility] 4.2.7.2.686 [phone] [facility] 2019-07-08 2019-07-08 Telephone [facility] 1.2.840.114 [id number] Univers 00:00:00 00:00:00 Chago Tello 350.1.13.10 i [place] [phone] [address] 2019-07-08 2019-07-08 Telephone [facility] 1.2.840.114 7 [id number] 00:00:00 00:00:00 Chago Tello 350.1.13.10 [place] 4.2.7.2.686 Professio [phone] [address] 2019-07-05 2019-07-05 Transition Tawana Franco 1.2.840.114 [id number] Univers 00:00:00 00:00:00 of Care Flori Méndez 350.1.13.10 it y of [place] [phone] [facility] [address] 2019-07-05 2019-07-05 Transition Tawana Franco 1.2.840.114 [id number] 00:00:00 00:00:00 of Care Flori Méndez 350.1.13.10 [place] 4.2.7.2.686 [phone] 403 2019-07-02 2019-07-04 Inpatient X DESEAN HALE [facility] [id number] Univers 11:42:40 18:46:00 ity [facility] 2019-07-02 2019-07-04 [facility] Dwight Noel [facility] 1.2.840.1 14 [id number] Univers 11:42:40 18:46:00 Encounter Desean Hale 350.1.13.10 it[place] of [place] [phone] [facility] [address] 2019-07-02 2019-07-04 [facility] Jaspreet Noelnell [facility] 1.2.840.1 14 [id number] 11:42:40 18:46:00 Encounter Desean Hale 350.1.13.10 [place] 4.2.7.2.686 [place] [phone] [facility] 2019-06-13 2019-06-13 [facility] 1.2.840.114 [id number] Univers 00:00:00 00:00:00 Chago Tello 350.1.13.10 i [place] [phone] [address] 2019-06-13 2019-06-13 [facility] 1.2.840.114 7 [id number] 00:00:00 00:00:00 Chago Tello 350.1.13.10 [place] 4.2.7.2.686 Professio [phone] [address] 2019-06-01 2019-06-01 Office [facility] 1.2.840.114 [id number] Univers 13:31:45 14:23:22 Visit Melchor Tello 350.1.13.10 ity of [place] 4.2.7.2.686 Elsie ambriz Professio [phone] Ma dical nal 059 [facility] 2019-06-01 2019-06-01 Office Baltazar [facility] 1.2.840.114 [id number] 13:31:45 14:23:22 Visit Melchor Tello 350.1.13.10 [place] 4.2.7.2.686 Professio [phone] [address] Results Test Description Test Time Test Comments Results Result Comments Source PROTHROMBIN TIME / INR 2021-12-09 03:05:20 Test Item Value Reference Range Interpretation Comme nts PROTIME PATIENT (test code = See_Comment [Automated message] [...] indications. Lab Interpretation (test code = Normal 05502-0) [facility] (NA, K, CL, CO2, GLUCOSE, BUN, CREATININE, CA)2019-07-04 19:25:00 Test Item Value Reference Range Interpretation Comments NA (test code = 137 mmol/L 135-145 4866025015) K (test code = 4.1 mmol/L 3.5-5 7701637412) CL (test code = 102 mmol/L 98-108 4675789828) CO2 TOTAL (test code = 27 mmol/L 23-31 6910330386) AGAP (test code = 2-16 3891382143) BUN (test code = 12 mg/dL 7-23 8681463015) GLUCOSE (test code = 103 mg/dL 70-110 4048351297) CREATININE (test code 0.70 mg/dL 0.6-1.25 = 2599669499) CALCIUM (test code = 8.8 mg/dL 8.6-10.6 2478653058) eGFR Calculation mL/min/1.73m2 (Non-) (test code = 4962115932) eGFR Calculation mL/min/1.73m2 () (test code = 3367564008) DAQUAN (test code = DAQUAN) Association of [...] or urine or abnormalities in imaging tests). [facility] 19:24:00 Test Item Value Reference Range Interpretation Comments MAGNESIUM (test code = 4474614279) 2.3 mg/dL 1.7-2.4 Lab Interpretation (test code = Normal 48289-8) [facility] 3 VW [id number] 14:21:01 Left seventh through tenth rib fractures. [...] lobe airspace opacificationmay represent atelectasis or contusion. [facility], Radiant Results Inft User - 07/03/2019 [...] have reviewed this study and agree withthe abovereport.[facility] 2019-07-03 08:28:00 Test Item Value Reference Range Interpretation Comments TROPONIN I (test <0.012 See_Comment [Automated code = 0153187181) message] The system which generated this result [...] ? Lab Interpretation Normal (test code = 16138-5) [facility] Metabolic Panel (NA, K, CL, CO2, GLUCOSE, BUN, CREATININE, CA)2019-07-03 08:17:00 Test Item Value Reference Range Interpretation Comments NA (test code = 132 mmol/L 135-145 L 1700719286) K (test code = 3.3 mmol/L 3.5-5 L 5432188233) CL (test code = 94 mmol/L 98-108 L 2933095135) CO2 TOTAL (test code = 27 mmol/L 23-31 9110532787) AGAP (test code = 2-16 7920384147) BUN (test code = 18 mg/dL 7-23 6926679499) GLUCOSE (test code = 116 mg/dL 70-110 H 9479746574) CREATININE (test code = 0.68 mg/dL 0.6-1.25 8305705198) CALCIUM (test code = 8.6 mg/dL 8.6-10.6 1273521587) eGFR Calculation mL/min/1.73m2 (Non-) (test code = 7741860045) eGFR Calculation mL/min/1.73m2 () (test code = 6634175827) DAQUAN (test code = DAQUAN) Association of [...] tests). Lab Interpretation Abnormal (test code = 22513-6) [facility] [id number] 08:17:00 Test Item Value Reference Range Interpretation Comments MAGNESIUM (test code = 1966539930) 1.7 mg/dL 1.7-2.4 Lab Interpretation (test code = Normal 21067-4) [facility] WITH [id number] 08:04:00 Test Item Value Reference Range Interpretation Comments WBC (test code = See_Comment [Automated 0790-2) message] The sy stem which generated this result transmitted reference range : 4.20 - 10.70 10*3/?L. The reference range was not used to interpret this result as normal/abnormal . RBC (test code = See_Comment [Automated 839-8) message] The sy stem which generated this [...] RDW-SD (test code = 41.0 fL 38.5-51.6 65974-3) RDW-CV (test code = 14.0 % 12.1-15.4 788-0) PLT (test code = See_Comment L [Automated 777-3) message] The sy stem which generated this result transmitted reference range : 150 - 328 10*3/ ?L. The reference r susan was not used to interpret this result as normal/abnormal . MPV (test code = 9.8 fL 9.8-13 03488-6) NRBC/100 WBC (test See_Comment [Automat ed code = 7347685273) message] The system which generated this result transmitted reference range : 0.0 - 10.0 /100 WBCs. The refer ence range was not u sed to interpret th is result as normal/abnormal . NRBC x10^3 (test code <0.01 See_Comment [Auto mated = 9444178295) message] The s ystem which generated this result transmitted reference range : 10*3/?L. The reference range was not used to interpret this result as normal/abnormal . GRAN MAT (NEUT) % 76.1 % (test code = 770-8) IMM GRAN % (test code 0.30 % = 4805719581) LYMPH % (test code = 15.8 % 736-9) MONO % (test code = 7.0 % 5905-5) EOS % (test code = 0.3 % 713-8) BASO % (test code = 0.5 % 706-2) GRAN MAT x10^3(ANC) 7.19 10*3/uL 1.99-6.95 H (test code = 0161054751) IMM GRAN x10^3 (test 0.03 10*3/uL 0-0.06 code = 1870392869) LYMPH x10^3 (test code 1.49 10*3/uL 1.09-3.23 = 731-0) MONO x10^3 (test code 0.66 10*3/uL 0.36-1.02 = 742-7) EOS x10^3 (test code = 0.03 10*3/uL 0.06-0.53 L 711-2) BASO x10^3 (test code 0.05 10*3/uL 0.01-0.09 = 704-7) Lab Interpretation Abnormal (test code = 41546-6) [facility]OR[facility]OM[facility]ERTOMMIE [id number] 23:57:00 Test Item Value Reference Range Interpretation Comments TROPONIN I (test <0.012 See_Comment [Automated code = 1888261646) message] The system which generated this result [...] ? Lab Interpretation Normal (test code = 48759-4) [facility] / [facility] - DRUG SCREEN [id number] 20:14:00 Test Item Value Reference Range Interpretation Comments BENZO U (test code = Presumptive Positive Negative A 8425013581) OLEGARIO U (test code = Negative Negative 7269791841) AMPHET (test code = Negative Negative 1632525286) THC (test code = Negative Negative 4304476871) METHADONE (test code = Negative Negative 4588857803) Meth U (test code = Negative Negative 9958854013) OPIATES (test code = Negative Negative 1959534550) Cocaine Metabolite (test Negative Negative code = 4588858672) PROPOXY (test code = Negative Negative 4234787399) Tric U (test code = Negative Negative 4270376265) PCP (test code = Negative Negative 6226162032) OXYCOD (test code = Negative Negative 2315080466) DAQUAN (test code = DAQUAN) Urine Drug [...] testing). Lab Interpretation (test Abnormal code = 37511-8) [facility] 1 [id number] 19:18:48 Left 8th through 10th rib fractures. [...] reviewed this study and agree with the abovereport.[facility]rop[facility] [id number] 19:12:00 Test Item Value Reference Range Interpretation Comments TROPONIN I (test <0.012 See_Comment [Automated code = 9294490571) message] The system which generated this result [...] ? Lab Interpretation Normal (test code = 64549-6) [facility] 19:12:00 Test Item Value Reference Range Interpretation Comments APTT Patient (test See_Comment [Automat ed code = 3173-2) message] The system which generated this result transmitted reference range : 23 - 38 Seconds . The reference range was not used to interpr et this result as normal/abnormal . DAQAUN (test code = DAQUAN) The [facility] patient population mean normal value for aPTT is 30 seconds. Lab Interpretation Normal (test code = 26003-7) [facility]Proth[facility]bin Time (PT) / [id number] 19:10:00 Test Item Value Reference Range Interpretation [...] tions. Lab Interpretation (test Normal code = 96707-4) [facility]MINAL [id number] 19:09:00 Test Item Value Reference Range Interpretation Comments NT-proBNP (test code 12 pg/mL See_Comment [Autom ated = 7997815647) message] The system which generated this result transmitted reference range : <=125. The reference range was not used to interpret this result as normal/abnormal . DAQUAN (test code = DAQUAN) Biotin has been reported to cause a negative bias, interpret results relative to patient's use of biotin. 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>400 Fatalities Reported [facility]2020-02-15 19:00:00 Test Item Value Reference Range Interpretation Comments MAGNESIUM (test code = 7885057255) 2.2 mg/dL 1.7-2.4 Lab Interpretation (test code = Normal 15404-4) [facility] (NA, K, CL, CO2, GLUCOSE, BUN, CREATININE, CA)2019-07-02 19:00:00 Test Item Value Reference Range Interpretation Comments NA (test code = 143 mmol/L 135-145 8211429090) K (test code = 4.5 mmol/L 3.5-5 8539869040) CL (test code = 100 mmol/L 98-108 4658076938) CO2 TOTAL (test code = 25 mmol/L 23-31 5326816415) AGAP (test code = 2-16 H 5465494523) BUN (test code = 16 mg/dL 7-23 7171974032) GLUCOSE (test code = 121 mg/dL 70-110 H 6236023882) CREATININE (test code = 0.69 mg/dL 0.6-1.25 5225506799) CALCIUM (test code = 8.6 mg/dL 8.6-10.6 0987797164) eGFR Calculation mL/min/1.73m2 (Non-) (test code = 0294358027) eGFR Calculation mL/min/1.73m2 () (test code = 1542124330) DAQUAN (test code = DAQUAN) Association of [...] tests). Lab Interpretation Abnormal (test code = 85351-4) [facility] (ALB, T.PRO, BILI T, BU/BC, ALT, AST, ALK PHOS)2019-07-02 19:00:00 Test Item Value Reference Range Interpretation Comments TOTAL BILI (test code = 2531038382) 0.9 mg/dL 0.1-1.1 BILI UNCON (test code = 4270400939) 0.5 mg/dL 0.1-1.1 BILI CONJ (test code = 6805561494) 0.0 mg/dL 0-0.3 T PROTEIN (test code = 8118205765) 8.3 g/dL 6.3-8.2 H ALBUMIN (test code = 0999363390) 4.9 g/dL 3.5-5 ALK PHOS (test code = 3972474895) 93 U/L 34-122 ALTv (test code = 1742-6) 32 U/L 5-50 AST(SGOT) (test code = 6690703184) 57 U/L 13-40 H Lab Interpretation (test code = Abnormal 91125-6) [facility] HospitalLipase [id number] 19:00:00 Test Item Value Reference Range Interpretation Comments LIPASE (test code = 2226216705) 274 U/L 0-220 H Lab Interpretation (test code = Abnormal 36954-4) [facility] WITH [id number] 18:47:00 Test Item Value Reference Range Interpretation Comments WBC (test code = See_Comment [Automated 3490-2) message] The sy stem which generated this result transmitted reference range : 4.20 - 10.70 10*3/?L. The reference range was not used to interpret this result as normal/abnormal . RBC (test code = See_Comment H [Automated 352-8) message] The sy stem which generated this [...] RDW-SD (test code = 40.3 fL 38.5-51.6 45974-3) RDW-CV (test code = 14.0 % 12.1-15.4 788-0) PLT (test code = See_Comment [Automated 777-3) message] The sy stem which generated this result transmitted reference range : 150 - 328 10*3/ ?L. The reference r susan was not used to interpret this result as normal/abnormal . MPV (test code = 9.7 fL 9.8-13 L 31379-3) NRBC/100 WBC (test See_Comment [Automat ed code = 2715108087) message] The system which generated this result transmitted reference range : 0.0 - 10.0 /100 WBCs. The refer ence range was not u sed to interpret th is result as normal/abnormal . NRBC x10^3 (test code <0.01 See_Comment [Auto mated = 0778574398) message] The s ystem which generated this result transmitted reference range : 10*3/?L. The reference range was not used to interpret this result as normal/abnormal . GRAN MAT (NEUT) % 61.6 % (test code = 770-8) IMM GRAN % (test code 0.30 % = 9577200810) LYMPH % (test code = 30.7 % 736-9) MONO % (test code = 5.4 % 5905-5) EOS % (test code = 1.3 % 713-8) BASO % (test code = 0.7 % 706-2) GRAN MAT x10^3(ANC) 4.67 10*3/uL 1.99-6.95 (test code = 2313124322) IMM GRAN x10^3 (test <0.03 0-0.06 code = 5314977540) LYMPH x10^3 (test code 2.33 10*3/uL 1.09-3.23 = 731-0) MONO x10^3 (test code 0.41 10*3/uL 0.36-1.02 = 742-7) EOS x10^3 (test code = 0.10 10*3/uL 0.06-0.53 711-2) BASO x10^3 (test code 0.05 10*3/uL 0.01-0.09 = 704-7) Lab Interpretation Abnormal (test code = 88038-9) [facility]"
[2022-03-02] MEDS ORDERED: ASPIRIN 81 MG CHEWABLE TABLET ONE (10:20)
[2022-03-02] MEDS ORDERED: THIAMINE 200 MG/2 ML INJ ONE (10:20)
[2022-03-02] MEDS ORDERED: LORazepam 2 MG/ML VIAL ONE ×2 (10:21→11:44)
[2022-03-02] MEDS ORDERED: NA CHLORIDE 0.9% 1,000 ML ONE (10:21)
[2022-03-02 10:43] LABS: Absolute Lymphocytes (CBC) 1.8 K/uL (0.7-4.9); Hematocrit 48.4 % (39.6-49.0); Lymphocytes % 22.9 % (15.3-44.8); MCV 83.7 fL (80-100); MPV 6.6 fL (7.6-11.3); RBC Red Blood Cell Count 5.78 M/uL (4.33-5.43)
[2022-03-02] MEDS ORDERED: MORPHINE 4 MG/ML SYR ONE (10:45)
[2022-03-02] MEDS ORDERED: ONDANSETRON 4 MG/2 ML VIAL ONE (10:45)
--- NOTE | 2022-03-02 11:06 | RAD REPORT ---
EXAM DESCRIPTION: RAD - Chest Single View - 03/02/2022 10:36 am CLINICAL HISTORY: CHEST PAIN COMPARISON: <Comparisons> FINDINGS: Lines: None. Lungs: No evidence of edema or pneumonia. Pleural: No significant pleural effusions or pneumothorax. Cardiac: The heart size is within normal limits. Mediastinum: Within normal limits. Bones: No acute fractures. Other: None IMPRESSION: No acute cardiopulmonary disease.
[2022-03-02 11:10] LABS: ALT/SGPT 79 U/L (12-78); AST/SGOT 92 U/L (15-37); Albumin 4.1 g/dL (3.4-5.0); Alkaline Phosphatase 90 U/L (45-117); BUN Blood Urea Nitrogen 12 mg/dL (7-18); Bicarbonate 22 mmol/L (21-32); Bilirubin Direct 0.2 mg/dL (0-0.2); Bilirubin Total 0.7 mg/dL (0.2-1.0); Glomerular Filtration Rate 98 ml/min (=/>90); Glucose Level 108 mg/dL (74-106); Lipase 340 U/L (73-393); Magnesium 2.4 mg/dL (1.8-2.4); NT PRO-BNP 6 pg/mL (<125); Potassium 3.7 mmol/L (3.5-5.1); Protein, Total 8.3 g/dL (6.4-8.2); Sodium Level 134 mmol/L (136-145); Troponin High Sensitivity 5.5 pg/mL (<58.9)
[2022-03-02] MEDS ORDERED: PANTOPRAZOLE 40 MG INJ ONE (11:44)
[2022-03-02] MEDS ORDERED: FOLIC ACID 1 MG, MULTIVITAMINS INJ 10 ML, THIAMINE HCL 100 MG in NA CHLORIDE 0.9% 1,000 ML IV ONE (12:15)
[2022-03-02 12:47] LABS: Urine Blood Negative (Negative); Urine Glucose Negative (Negative); Urine Protein 1+ (Negative); Urine pH 7.5 (5.0-7.0)
--- NOTE | 2022-03-02 12:47 | RAD REPORT ---
EXAM DESCRIPTION: US - Extrem Venous W Compress Jayden - 03/02/2022 12:38 pm CLINICAL HISTORY: PAIN COMPARISON: <Comparisons> TECHNIQUE: Real-time sonographic evaluation of the lower extremity deep venous systems was performed using color Doppler, grayscale, and compression. FINDINGS: Bilateral lower extremities. Normal compressibility, flow augmentation, phasic flow and spontaneous flow is identified in both the left and right lower extremity deep venous systems. No intraluminal filling defects seen. IMPRESSION: No DVT in either lower extremity.
--- NOTE | 2022-03-02 13:12 | RAD REPORT ---
EXAM DESCRIPTION: CT - Chest For Pe Angio - 03/02/2022 1:01 pm CLINICAL HISTORY: chest pain/ alcohol withdrawal COMPARISON: Chest For Pe Angio dated 12/28/2021; Thorax Wo Con dated 07/10/2019; Chest Single View pedro ed 03/02/2022 TECHNIQUE: Dynamically enhanced axial 3 mm thick images of the chest were obtained during administra tion of <100> mL Isovue 370 IV contrast. Coronal and oblique reconstruction images were generated and reviewed. Exam utilizes a protocol for optimal evaluation of pulmonary arterial tree. Maximum intensity projections 3D imaging was utilized All CT scans are performed using dose optimization technique as appropriate and may include automated exposure control or mA/KV adjustment according to patient size. FINDINGS: Chest Wall: No suspicious thyroid nodules or pathologic lymphadenopathy. Lungs: No acute abnormality. Pleura: No significant effusions or pneumothorax. Mediastinum/agry: No pathologic lymphadenopathy. Small hiatal hernia. Circumferential thickened esoph nona which may reflect esophagitis. Pulmonary arteries/Aorta: No filling defect identified. No aortic aneurysm. Heart: No significant pericardial effusion. Normal heart size. Upper abdomen: No acute abnormality.Hepatic steatosis Bones: No acute abnormality. Remote bilateral rib fractures. IMPRESSION: Negative for pulmonary embolism. Ancillary findings as noted above.
--- NOTE | 2022-03-02 13:18 | ER ---
Nurse's Notes [facility] Name: Frank Polo Age: 51 yrs Sex: Male : 1970 Arrival Date: 03/02/2022 Time: 10:02 Bed 20 Private MD: Diagnosis: Alcohol abuse with intoxication;Chest pain, unspecified;Esophagitis, unspecified Presentation: 03/02 10:04 Chief complaint: Patient states: pain hurts worse when i take a deep breath. Chief tw2 complaint: Patient states: i am having chest pain upper RIGHT and withdrawals from alcohol for a couple of days+ NVD . i had 3 beers this morning to try and help the pain but it has gotten worse. Coronavirus screen: diarrhea, nausea, vomiting. Client presents with at least one sign or symptom that may indicate coronavirus-19. Standard/surgical mask placed on the client. Provider contacted for isolation considerations. At this time, the client does not indicate any symptoms associated with coronavirus-19. Ebola Screen: Patient denies travel to an Ebola-affected area in the 21 days before illness onset. Initial Sepsis Screen: Does the patient meet any 2 criteria? HR > 90 bpm. No. Patient's initial sepsis screen is negative. Does the patient have a suspected source of infection? No. Patient's initial sepsis screen is negative. Risk Assessment: Do you want to hurt yourself or someone else? Patient reports no desire to harm self or others. Onset of symptoms was March 02, 2022. 10:04 Method Of Arrival: Ambulatory tw2 10:04 Acuity: PRANAV 2 tw2 Triage Assessment: 10:04 General: Appears uncomfortable, Behavior is cooperative, appropriate for age. Pain: tw2 Complains of pain in anterior aspect of right upper chest and right breast. Cardiovascular: Reports chest pain. GI: Reports nausea. Historical: - Allergies: 10:05 NKDA; tw2 - Home Meds: 10:05 atorvastatin Oral [Active]; gabapentin 300 mg Oral cap 1 cap 3 times per day [Active]; tw2 Remeron 15 mg Oral tab [Active]; - PMHx: 10:05 Alcoholism; Anxiety; Bipolar disorder; PE; tw2 - Immunization history:: Client reports having NOT received the Covid vaccine. - Social history:: Smoking status: Patient reports use of chewing tobacco. Patient uses alcohol, on a daily basis. - Family history:: not pertinent. Screenin:32 Abuse screen: Denies threats or abuse. Nutritional screening: No deficits noted. tw2 Tuberculosis screening: No symptoms or risk factors identified. Fall Risk None identified. Assessment: 10:33 Pain: Pain does not radiate. Pain began 2-3 days ago. tw2 11:07 Reassessment: No changes from previously documented assessment. Patient and/or family bp updated on plan of care and expected duration. Pain level reassessed. 12:49 Reassessment: US COMPLETE. CT PE PENDING. bp 14:21 Reassessment: PT DC HOME AMBULATORY. bp Vital Signs: 10:04 BP 124 / 85; Pulse 121; Resp 17; Temp 98.4(TE); Pulse Ox 99% on R/A; Weight 86.18 kg; tw2 Height 5 ft. 10 in. (177.80 cm); Pain 10/10; 11:07 BP 113 / 61; Pulse 99; Resp 21; Pulse Ox 98% ; bp 12:49 BP 108 / 63; Pulse 98; Resp 16; Pulse Ox 96% ; bp 14:21 BP 116 / 74; Pulse 97; Resp 16; Pulse Ox 99% ; bp 10:04 Body Mass Index 27.26 (86.18 kg, 177.80 cm) tw2 ED Course: 10:02 Patient arrived in ED. am2 10:04 Tay Key MD is Attending Physician. amy 10:05 Triage completed. tw2 10:06 Bed in low position. Call light in reach. site monitor on. Pulse ox on. NIBP on. tw2 10:07 Oscar Uribe, EDISON is Primary Nurse. bp 10:30 Inserted saline lock: 20 gauge in right forearm, using aseptic technique. Blood bp collected. 10:33 Arm band placed on. tw2 10:34 Patient maintains SpO2 saturation greater than 95% on room air. tw2 10:38 XRAY Chest (1 view) In Process Unspecified. EDMS 12:33 US Extremity Venous W Compression Jayden In Process Unspecified. EDMS 13:03 Chest For Pe Angio In Process Unspecified. EDMS 13:16 Gunnar Oliveira MD is Referral Physician. amy 14:22 No provider procedures requiring assistance completed. IV discontinued, intact, bp bleeding controlled, No redness/swelling at site. Pressure dressing applied. Administered Medications: 10:29 Drug: NS 0.9% 1000 ml Route: IV; Rate: 1 bolus; Site: right forearm; bp 10:29 Drug: Thiamine 100 mg Route: IV; Rate: per protocol; Site: right forearm; bp 10:29 Drug: Aspirin 162 mg Route: PO; bp 10:50 Follow up: Response: No adverse reaction bp 10:29 Drug: Ativan (LORazepam) 2 mg Route: IVP; Site: right forearm; bp 10:50 Follow up: Response: No adverse reaction bp 10:50 Drug: morphine 4 mg Route: IVP; Infused Over: 4 mins; Site: right forearm; bp 11:40 Follow up: Response: No adverse reaction bp 10:50 Drug: Zofran (Ondansetron) 4 mg Route: IVP; Site: right forearm; bp 11:40 Follow up: Response: No adverse reaction bp 11:49 Drug: ProTONIX (pantoprazole) 40 mg Route: IVP; Site: right forearm; bp 14:22 Follow up: Response: No adverse reaction bp 11:49 Drug: Ativan (LORazepam) 2 mg Route: IVP; Site: right forearm; bp 14:22 Follow up: Response: No adverse reaction bp 12:30 Drug: Banana Bag - (NS 0.9% 1000 ml, foLIC Acid 1 mg, Thiamine 100 mg, Multivitamin 1 bp amp) Route: IV; Rate: 500 ml/hr; Site: right forearm; 14:22 Follow up: IV Status: Completed infusion; IV Intake: 1000ml bp Medication: 10:34 VIS not applicable for this client. tw2 Intake: 14:22 IV: 1000ml; Total: 1000ml. bp Outcome: 13:17 Discharge ordered by . amy 14:21 Discharged to home ambulatory. bp 14:21 Condition: stable 14:21 Discharge instructions given to patient, Instructed on discharge instructions, follow up and referral plans. medication usage, Demonstrated understanding of instructions, follow-up care, medications, Prescriptions given X 2. 14:23 Patient left the ED. bp Signatures: Dispatcher [employer] EDCO Tay Key MD MD cha Wise, Tara RN RN tw2 Jojo Koo am2 Oscar Uribe RN RN bp Corrections: (The following items were deleted from the chart) 10:34 10:04 Chief complaint: Patient states: i am having chest pain upper RIGHT and tw2 withdrawals from alcohol + NVD. i had 3 beers this morning to try and help the pain but it has gotten worse tw2
--- NOTE | 2022-03-02 13:18 | EDPHYS ---
Physician Documentation [facility] Name: Frank Polo Age: 51 yrs Sex: Male : 1970 Arrival Date: 03/02/2022 Time: 10:02 Bed 20 Private MD: ROBBI Physician Tay Key HPI: 03/02 11:54 This 51 yrs old Male presents to ER via Ambulatory with complaints of Chest amy Pain, Alcohol Withdrawal. 11:54 The patient or guardian reports chest pain that is located primarily in the anterior amy chest wall, right, right clavicle, anterior aspect of right upper chest and right breast. Onset: 3 day(s) ago. The pain does not radiate. Associated signs and symptoms: Pertinent positives: palpitations. The chest pain is described as aching. Severity of pain: At its worst the pain was moderate yesterday. The patient has experienced similar episodes in the past, several times. Historical: - Allergies: 10:05 NKDA; tw2 - Home Meds: 10:05 atorvastatin Oral [Active]; gabapentin 300 mg Oral cap 1 cap 3 times per day [Active]; tw2 Remeron 15 mg Oral tab [Active]; - PMHx: 10:05 Alcoholism; Anxiety; Bipolar disorder; PE; tw2 - Immunization history:: Client reports having NOT received the Covid vaccine. - Social history:: Smoking status: Patient reports use of chewing tobacco. Patient uses alcohol, on a daily basis. - Family history:: not pertinent. ROS: 11:54 Constitutional: Negative for fever, chills, and weight loss, Eyes: Negative for injury, amy pain, redness, and discharge, ENT: Negative for injury, pain, and discharge, Neck: Negative for injury, pain, and swelling, Cardiovascular: Negative for chest pain, palpitations, and edema, Abdomen/GI: Negative for abdominal pain, nausea, vomiting, diarrhea, and constipation, Back: Negative for injury and pain, : Negative for injury, bleeding, discharge, and swelling, MS/Extremity: Negative for injury and deformity, Skin: Negative for injury, rash, and discoloration, Neuro: Negative for headache, weakness, numbness, tingling, and seizure, Psych: Negative for depression, anxiety, suicide ideation, homicidal ideation, and hallucinations, Allergy/Immunology: Negative for hives, rash, and allergies, Endocrine: Negative for neck swelling, polydipsia, polyuria, polyphagia, and marked weight changes, Hematologic/Lymphatic: Negative for swollen nodes, abnormal bleeding, and unusual bruising. 11:54 Respiratory: Positive for shortness of breath, at rest. Exam: 11:54 Constitutional: This is a well developed, well nourished patient who is awake, alert, amy and in no acute distress. Head/Face: Normocephalic, atraumatic. Eyes: Pupils equal round and reactive to light, extra-ocular motions intact. Lids and lashes normal. Conjunctiva and sclera are non-icteric and not injected. Cornea within normal limits. Periorbital areas with no swelling, redness, or edema. ENT: Nares patent. No nasal discharge, no septal abnormalities noted. Tympanic membranes are normal and external auditory canals are clear. Oropharynx with no redness, swelling, or masses, exudates, or evidence of obstruction, uvula midline. Mucous membranes moist. Neck: Trachea midline, no thyromegaly or masses palpated, and no cervical lymphadenopathy. Supple, full range of motion without nuchal rigidity, or vertebral point tenderness. No Meningismus. Cardiovascular: Regular rate and rhythm with a normal S1 and S2. No gallops, murmurs, or rubs. Normal PMI, no JVD. No pulse deficits. Respiratory: Lungs have equal breath sounds bilaterally, clear to auscultation and percussion. No rales, rhonchi or wheezes noted. No increased work of breathing, no retractions or nasal flaring. Abdomen/GI: Soft, non-tender, with normal bowel sounds. No distension or tympany. No guarding or rebound. No evidence of tenderness throughout. Back: No spinal tenderness. No costovertebral tenderness. Full range of motion. Skin: Warm, dry with normal turgor. Normal color with no rashes, no lesions, and no evidence of cellulitis. MS/ Extremity: Pulses equal, no cyanosis. Neurovascular intact. Full, normal range of motion. Neuro: Awake and alert, GCS 15, oriented to person, place, time, and situation. Cranial nerves II-XII grossly intact. Motor strength 5/5 in all extremities. Sensory grossly intact. Cerebellar exam normal. Normal gait. Psych: Awake, alert, with orientation to person, place and time. Behavior, mood, and affect are within normal limits. 11:54 Chest/axilla: Inspection: normal, no acute changes, Palpation: tenderness, that is mild, that is moderate, of the right clavicle, anterior aspect of right upper chest and right breast. 11:54 ECG was reviewed by the Attending Physician. Vital Signs: 10:04 BP 124 / 85; Pulse 121; Resp 17; Temp 98.4(TE); Pulse Ox 99% on R/A; Weight 86.18 kg; tw2 Height 5 ft. 10 in. (177.80 cm); Pain 10/10; 11:07 BP 113 / 61; Pulse 99; Resp 21; Pulse Ox 98% ; bp 12:49 BP 108 / 63; Pulse 98; Resp 16; Pulse Ox 96% ; bp 14:21 BP 116 / 74; Pulse 97; Resp 16; Pulse Ox 99% ; bp 10:04 Body Mass Index 27.26 (86.18 kg, 177.80 cm) tw2 MDM: 10:04 Patient medically screened. amy 10:06 Patient medically screened. amy 11:59 Differential diagnosis: abnormal EKG, acute myocardial infarction, acute pericarditis, amy anxiety, Cholelithiasis costochondritis, esophagitis, hiatal hernia, pancreatitis, pleurisy, pneumonia, pneumothorax, stable angina, unstable angina. HEART Score: History: Slightly Suspicious (0), ECG: Non specific repolarization disturbance / LBTB / PM (1), Age: > 45 and < 65 years (1), Risk Factors: 1 or 2 risk factors (1), [Hypertension] [+ Family HX]. The patient was given aspirin in the Emergency Department. The patient's deep vein thrombosis risk score was calculated as follows: Total Score: 0. This patient was found to be at low risk for a deep vein thrombosis by using the Well's assessment criteria. The patient's pulmonary embolism risk score was calculated as follows: the patients heart rate is greater than 100 beats per minute (1.5 Pts) Total Score: greater than 6 points. This patient was found to be at low risk for a pulmonary embolism by using the Well's assessment criteria. JONAH Risk Score: 1 - Three or more CAD risk factors, 1- Known CAD, 1 - ASA use in past 7 days, TOTAL SCORE = 3. Data reviewed: vital signs, nurses notes, lab test result(s), EKG, radiologic studies, CT scan. Data interpreted: space technologist: rate is 99 beats/min, rhythm is regular, Pulse oximetry: on room air is 98 %. Test interpretation: by ED physician or midlevel provider: ECG, plain radiologic studies. Counseling: I had a detailed discussion with the patient and/or guardian regarding: the historical points, exam findings, and any diagnostic results supporting the discharge/admit diagnosis, lab results, radiology results, the need for outpatient follow up, for definitive care, a audio video technician, a family practitioner, a well surveying engineer. 03/02 10:19 Order name: Basic Metabolic Panel; Complete Time: 11:34 amy 03/02 10:19 Order name: CBC with Diff; Complete Time: 11:15 amy 03/02 10:19 Order name: LFT's; Complete Time: 11:34 03/02 10:19 Order name: Magnesium; Complete Time: 11:34 amy 03/02 10:19 Order name: NT PRO-BNP; Complete Time: 11:34 03/02 10:19 Order name: PT-INR; Complete Time: 11:34 03/02 10:19 Order name: Troponin HS; Complete Time: 11:34 amy 03/02 10:19 Order name: Lipase; Complete Time: 11:34 amy 03/02 10:19 Order name: Acetaminophen; Complete Time: 11:34 amy 03/02 10:19 Order name: ETOH Level; Complete Time: 11:34 amy 03/02 10:19 Order name: Ptt, Activated; Complete Time: 11:34 03/02 10:19 Order name: Salicylate; Complete Time: 11:34 03/02 10:19 Order name: Urine Drug Screen 03/02 10:19 Order name: D-Dimer; Complete Time: 11:34 03/02 10:19 Order name: XRAY Chest (1 view); Complete Time: 11:15 amy 03/02 10:19 Order name: EKG; Complete Time: 10:20 amy 03/02 11:36 Order name: US Extremity Venous W Compression Jayden; Complete Time: 13:16 amy 03/02 11:37 Order name: Troponin High Sensitivity: 130pm; Complete Time: 14:10 amy 03/02 12:18 Order name: Chest For Pe Angio; Complete Time: 13:16 EDMS 03/02 12:47 Order name: Urine Dipstick-Ancillary; Complete Time: 13:16 EDMN 03/02 10:19 Order name: Cardiac monitoring; Complete Time: 10:29 [facility] 03/02 10:19 Order name: EKG - Nurse/Tech; Complete Time: 10:29 [facility] 03/02 10:19 Order name: IV Saline Lock; Complete Time: 10:29 [facility] 03/02 10:19 Order name: Labs collected and sent; Complete Time: 10: [facility] 03/02 10:19 Order name: O2 Per Protocol; Complete Time: 10: [facility] 03/02 10:19 Order name: O2 Sat Monitoring; Complete Time: 10: [facility] 03/02 10:19 Order name: Suicide Screening ([place]); Complete Time: : [facility] 03/02 10:19 Order name: Urine Dipstick-Ancillary (obtain specimen); Complete Time: 13:51 [facility] EC:54 Rate is 116 beats/min. Rhythm is regular. QRS Goodman is Normal. [place] interval is normal. [facility] QRS interval is normal. QT interval is normal. No Q waves. T waves are Normal. Clinical impression: Sinus tachycardia and No evidence of ischemia. Interpreted by me. Reviewed by me. Administered Medications: 10:29 Drug: NS 0.9% 1000 ml Route: IV; Rate: 1 bolus; Site: right forearm; bp 10:29 Drug: Thiamine 100 mg Route: IV; Rate: per protocol; Site: right forearm; bp 10:29 Drug: Aspirin 162 mg Route: PO; bp 10:50 Follow up: Response: No adverse reaction bp 10:29 Drug: Ativan (LORazepam) 2 mg Route: IVP; Site: right forearm; bp 10:50 Follow up: Response: No adverse reaction bp 10:50 Drug: morphine 4 mg Route: IVP; Infused Over: 4 mins; Site: right forearm; bp 11:40 Follow up: Response: No adverse reaction bp 10:50 Drug: Zofran (Ondansetron) 4 mg Route: IVP; Site: right forearm; bp 11:40 Follow up: Response: No adverse reaction bp 11:49 Drug: ProTONIX (pantoprazole) 40 mg Route: IVP; Site: right forearm; bp 14:22 Follow up: Response: No adverse reaction bp 11:49 Drug: Ativan (LORazepam) 2 mg Route: IVP; Site: right forearm; bp 14:22 Follow up: Response: No adverse reaction bp 12:30 Drug: Banana Bag - (NS 0.9% 1000 ml, foLIC Acid 1 mg, Thiamine 100 mg, Multivitamin 1 bp amp) Route: IV; Rate: 500 ml/hr; Site: right forearm; 14:22 Follow up: IV Status: Completed infusion; IV Intake: 1000ml bp Disposition Summary: 03/02/22 13:17 Discharge Ordered Location: Home amy Problem: new amy Symptoms: have improved amy Condition: Stable amy Diagnosis - Alcohol abuse with intoxication amy - Chest pain, unspecified amy - Esophagitis, unspecified amy Followup: amy - With: Private Physician - When: 2 - 3 days - Reason: Recheck today's complaints, Continuance of care, Re-evaluation by your physician Followup: amy - With: - When: 2 - 3 days - Reason: Recheck today's complaints, Continuance of care, Re-evaluation by your physician Discharge Instructions: - Discharge Summary Sheet amy - Alcohol Intoxication amy - Nonspecific Chest Pain, Adult amy - Chest Wall Pain amy - Nonspecific Chest Pain, Pediatric amy - Esophagitis amy - Chest Wall Pain, [id number] amy - Alcohol Intoxication, [id number] amy - Nonspecific Chest Pain, Adult, [id number] amy - Aspirin and Your Heart [facility] Forms: - Medication Reconciliation Form amy - Thank You Letter amy - Antibiotic Education amy - Prescription Opioid Use [facility] Prescriptions: - Tylenol 325 mg Oral Tablet - take 2 tablets by ORAL route every 6 hours as needed; 1 bottle; Refills: 0, [facility] Product Selection Permitted - Protonix 40 mg Oral Tablet - take 1 tablet by ORAL route once daily; 30 tablet; Refills: 0, Product [facility] Selection Permitted Signatures: Dispatcher [employer] Tay Goddard MD MD cha Wise, Tara RN RN tw2 Oscar Uribe, RN RN bp
[2022-03-02 14:33] LABS: Barbiturates NEGATIVE (NEGATIVE); Benzodiazepines NEGATIVE (NEGATIVE); Cocaine NEGATIVE (NEGATIVE); METHAMPHETAM NEGATIVE (NEGATIVE); Methadone NEGATIVE (NEGATIVE); Opiates NEGATIVE (NEGATIVE); Phencyclidine NEGATIVE (NEGATIVE); THC Cannibis NEGATIVE (NEGATIVE)
[2022-03-02 14:37] VITALS: TEMP 98.4
[2022-03-02 14:48] VITALS: BP 116/74; O2SAT 99
--- NOTE | 2022-03-03 16:11 | EKG ---
Test Date: 2022-03-02 Test Time: 10:18:03 Compliance Review Officer: BP MEASUREMENT RESULTS: Intervals: Rate: 116 GA: 142 QRSD: 76 QT: 336 QTc: 467 [place]: P: 24 GA: 142 QRS: 22 T: 29 INTERPRETIVE STATEMENTS: Sinus tachycardia Anterior infarct, age undetermined Abnormal ECG Compared to ECG 12/28/2021 08:05:46 No significant changes Electronically Signed On 03-03-22 16:08:40 CDT by Stan Salmeron
== END 2022-03-02 14:23 | disposition home or self-care (01) ==
LOC: ER 10:00
DX: F10.229 Alcohol dependence with intoxication, unspecified (principal); R07.9 Chest pain, unspecified; K20.90 Esophagitis, unspecified without bleeding; R06.02 Shortness of breath; F17.220 Nicotine dependence, chewing tobacco, uncomplicated; F31.9 Bipolar disorder, unspecified
CPT/HCPCS: 96365; 93005; 85025; 80048; 36415; 80320; 83735; 80329 ×2; 85610; 85379; 80076; 85730; 81003; 84484 ×2; 83690; 83880; 80307; 71275; 71045; 93970; 96375; 99285; 96366; Q9967; J3411 ×2; C9113; J7030 ×2; J2405

== ENCOUNTER 2022-03-03 17:42 | Emergency (ER) | payer OTHER ==
--- OUTSIDE RECORDS SUMMARY | 2022-03-03 17:48 | XMS REPORT | Continuity of Care Document ---
:1970 Author Organization [facility] t Address [address] [place] [address] [address] [place] [address] Care Team Providers Name Role Phone Asked, No Pcp Primary Care Physician Unavailable Indra Moura Attending Clinician Unavailable Fernie Pierce Attending Clinician Unavailable Blanquita Loja Attending Clinician Unavailable Debbie Devine Attending Clinician Unavailable Avtar MUÑOZ Attending Clinician Unavailable Avtar Pierce Attending Clinician Melchor Sanches MD Attending Clinician Dianne Morris MDHDennis Attending Clinician DIANNE MORRIS.HDennis Attending Clinician Unavailable Doctor Unassigned, [place] Attending Clinician Unavailable Anselmo Zuniga DO Attending [...] Number Effective Date Expiration Date Umm jauregui [facility] LIZ [id number] 2021 00:00:00 MEDICARE PART A [id number] 2017 \\T\\ B 00:00:00 [employer] [id number] 2021 MEDICARE ADVANTAGE 00:00:00 Problems Condition Condition [...] 2-16 it y of on on 00:00: [place] [facility] Atypical Atypical Disease Active Unive rs chest pain chest pain 2-16 it y of 00:00: [place] 00 [facility] Alcohol Alcohol Disease Active Univers withdrawal withdrawal 2-15 it y of 00:00: [place] 00 [facility] 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 Uni vers (myocardia (myocardia 2-31 it y of l l 00:00: [place] infarction infarction 00 Me dical ) ) Branch Obesity Obesity Disease Active 2018-05 Univers (BMI (BMI 2-31 ity of 30-39.9) 30-39.9) 00:00: [place] [facility] 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 Uni vers hypertensi hypertensi 2-31 it y of on on 00:00: [place] [facility] Alcohol Alcohol Disease Active Methodi [...] Active U nivers 2-17 ity of 00:00: [place] 00 Medical Branch Anxiety Anxiety Disease Active Univers disorder disorder 2-17 ity of 00:00: [address] Depression Depression Disease Recurre Univers nce 2-17 ity of 00:00: [place] [facility] Acute Acute Disease Active Univers respirator respirator 2-17 it y of y failure y failure 00:[place] [facility] Tobacco Tobacco Disease Active Univers abuse abuse 2-17 ity of disorder disorder 00:00: [place] [facility] Suicidal Suicidal Disease Active Unive rs ideation ideation 5- ity of 00:00: [address] Allergies, Adverse Reactions, Alerts Allergy Allergy Status Severity Reaction(s) Onset Inactive Treating Comm ents Source Name Type Date Date Clinician NO KNOWN Drug Active [facility] ALLERGIE Class ity of S [facility] Social History Social Habit Start Date Stop Date Quantity Comments Source History of Chews Tobacco University of tobacco use [facility] Exposure to 2021-11-28 2021-12-08 Not sure [facility] SARS-CoV-2 00:00:00 21:20:00 [facility] (event) [place] Tobacco use and 2019-06-01 2019-06-01 User of smokeless Un iversity of exposure 00:00:00 00:00:00 tobacco [facility] Alcohol intake 2015-10-18 2015-10-[address] [facility] 00:00:00 00:00:00 of alcohol (finding) Alcohol Comment 2015-10-18 2015-10-18 case a day some [facility] 00:00:00 00:00:00 days Sex Ass[birth year] At [birth year] [facility] 00:00:00 00:00:00 Smoking Status Start Date Stop Date Source Ex-smoker 2019-06-01 00:00:00 2019-06-01 00:00:00 [facility] Smokes tobacco daily 2015-10-18 00:00:00 [facility] Medications Ordered Filled Start Stop Current Ordering [...] as mg 00 :00 dose, [facility] [place] [facility] 12/08/21 at 2300, Routine atorvastati 2020-0 Yes 40mg Take 1 Univ [...] by ity of tablet 00:00: mouth at [place] [address] bedtime. Medical Branch lamoTRIgine 2020-0 Yes 100mg Take 100 U nivers 100 mg 9-27 mg by ity of tablet 00:00: mouth at [place] [address] bedtime. Medical Branch lamoTRIgine 2020-0 Yes 100mg Take 100 U nivers 100 mg 9-27 mg by ity of tablet 00:00: mouth at [place] 00 bedtime. Medical Branch lamoTRIgine 2020-0 Yes 100mg Take 100 U nivers 100 mg 9-27 mg by ity of tablet 00:00: mouth at [place] 00 bedtime. Medical Branch lamoTRIgine 2020-0 Yes 100mg Take 100 U nivers 100 mg 9-27 mg by ity of tablet 00:00: mouth at [place] [address] bedtime. Medical Branch lamoTRIgine 2020-0 Yes 100mg [...] 2 (two) Medical times Branch daily. atorvastati 2020-0 [...] s: a clot in the lung metoprolol 2019-0 2020- No 50mg Take 1 Univ ers [...] Branch daily. foLIC acid 2020-0 2020- No [id number] 1mg Take 1 Univers 1 mg tablet 2-18 03-20 tablet by it y of 00:00: 04:59 mouth [place] 00 :00 daily for Medical 30 days. Branch thiamine 2020-0 2020- No [id number] 100mg Take 1 Univers 100 mg 2-18 03-20 tablet by ity of tablet 00:00: 04:59 mouth [place] 00 :00 daily for Medical 30 days. Branch foLIC acid 2020-0 2020- No [id number] 1mg Take 1 Univers 1 mg tablet 2-18 03-20 tablet by it y of 00:00: 04:59 mouth [place] 00 :00 daily for Medical 30 days. Branch thiamine 2020-0 2020- No [id number] 100mg Take 1 Univers 100 mg 2-18 03-20 tablet by ity of tablet 00:00: 04:59 mouth [place] 00 :00 daily for Medical 30 days. [place] foLIC acid 2020-0 2020- No [id number] 1mg Take 1 Univers 1 mg tablet 2-18 03-20 tablet by it y of 00:00: 04:59 mouth [place] 00 :00 daily for Medical 30 days. [place] thiamine 2020-0 2020- No [id number] 100mg Take 1 Univers 100 mg 2-18 03-20 tablet by ity of tablet 00:00: 04:59 mouth [place] 00 :00 daily for Medical 30 days. [place] foLIC acid 2019-0 2020- No [id number] 1mg Take 1 Univers 1 mg tablet 2-18 03-20 tablet by it y of 00:00: 04:59 mouth [place] 00 :00 daily for Medical 30 days. [place] thiamine 2019-0 2020- No [id number] 100mg Take 1 Univers 100 mg 2-18 03-20 tablet by ity of tablet 00:00: 04:59 mouth [place] 00 :00 daily for Medical 30 days. [place] foLIC acid 2019-0 2020- No [id number] 1mg Take 1 Univers 1 mg tablet 2-18 03-20 tablet by it y of 00:00: 04:59 mouth [place] 00 :00 daily for Medical 30 days. [place] thiamine 2019-0 2020- No [id number] 100mg Take 1 Univers 100 mg 2-18 03-20 tablet by ity of tablet 00:00: 04:59 mouth [place] 00 :00 daily for Medical 30 days. [place] foLIC acid 2019-0 2020- No [id number] 1mg Take 1 Univers 1 mg tablet 2-18 03-20 tablet by it y of 00:00: 04:59 mouth [place] 00 :00 daily for Medical 30 days. [place] thiamine 2019-0 2020- No [id number] 100mg Take 1 Univers 100 mg 2-18 03-20 tablet by ity of tablet 00:00: 04:59 mouth [place] 00 :00 daily for Medical 30 days. [place] QUEtiapine 2019-0 2020- No 300mg Take 300 U nivers (SEROQUEL) 2-17 02-17 mg by ity of 300 mg 22:43: 00:00 mouth [place] tablet 15 :00 every Medical evening. [place] hydralAZINE 2019-0 Yes 10mg 10 mg, Univ ers (APRESOLINE 2-17 Intravenou it y of ) injection 22:39: s, PRN - [place] 10 mg 29 SEE Medical INSTRUCTIO Branch NS, Starting [facility] 07/04/19 at 1639, Until Discontinu ed, Routine, Hypertensi [...] mg 18:59: Q4HPRN, [place] 52 Starting Medical [facility] Branch 07/04/19 at 1259, Until Discontinu ed, Routine, Pain (scale 7-10) lisinopril 2019-0 Yes 10mg 10 mg, Unive rs (PRINIVIL,Z 2-17 Oral, ity of ESTRIL) 18:30: DAILY, [place] tablet 10 00 First dose Medi johnson mg on [facility] Branch 07/04/19 at 1230, Until Discontinu ed, Routine LORazepam 1 2019-0 Yes [id number] 1mg Take 1 Univers mg tablet 2-17 tablet by ity o f 00:00: mouth 3 [place] 00 (three) Medical times Branch daily as needed for Anxiety or Agitation. traMADol 50 2020-0 Yes [id number] 50mg Take 1 Univers mg tablet 2-17 [id number] tablet by ity of 00:00: mouth [place] 00 every 6 Medical (six) Branch hours as needed for Pain (scale 4-6). LORazepam 1 2020-0 Yes [id number] 1mg Take 1 Univers mg tablet 2-17 tablet by ity o f 00:00: mouth 3 [place] 00 (three) Medical times Branch daily as needed for Anxiety or Agitation. traMADol 50 2020-0 Yes [id number] 50mg Take 1 Univers mg tablet 2-17 [id number] tablet by ity of 00:00: mouth [place] 00 every 6 Medical (six) Branch hours as needed for Pain (scale 4-6). LORazepam 1 2020-0 Yes [id number] 1mg Take 1 Univers mg tablet 2-17 tablet by ity o f 00:00: mouth 3 [place] 00 (three) Medical times Branch daily as needed for Anxiety or Agitation. traMADol 50 2020-0 Yes [id number] 50mg Take 1 Univers mg tablet 2-17 [id number] tablet by ity of 00:00: mouth [place] 00 every 6 Medical (six) Branch hours as needed for Pain (scale 4-6). LORazepam 1 2020-0 Yes [id number] 1mg Take 1 Univers mg tablet 2-17 tablet by ity o f 00:00: mouth 3 [place] 00 (three) Medical times Branch daily as needed for Anxiety or Agitation. traMADol 50 2020-0 Yes [id number] 50mg Take 1 Univers mg tablet 2-17 [id number] tablet by ity of 00:00: mouth [place] 00 every 6 Medical (six) Branch hours as needed for Pain (scale 4-6). LORazepam 1 2020-0 Yes [id number] 1mg Take 1 Univers mg tablet 2-17 tablet by ity o f 00:00: mouth 3 00 (three) Medical times Branch daily as needed for Anxiety or Agitation. traMADol 50 2020-0 Yes [id number] 50mg Take 1 Univers mg tablet 2-17 [id number] tablet by ity of 00:00: mouth [place] 00 every 6 Medical (six) Branch hours as needed for Pain (scale 4-6). LORazepam 1 2020-0 Yes [id number] 1mg Take 1 Univers mg tablet 2-17 tablet by ity o f 00:00: mouth 3 00 (three) Medical times Branch daily as needed for Anxiety or Agitation. traMADol 50 2020-0 Yes [id number] 50mg Take 1 Univers mg tablet 2-17 [id number] tablet by ity of 00:00: mouth [place] 00 every 6 Medical (six) Branch hours as needed for Pain (scale 4-6). LORazepam 1 2020-0 Yes [id number] 1mg Take 1 Univers mg tablet 2-17 tablet by ity o f 00:00: mouth 3 [place] 00 (three) Medical times Branch daily as needed for Anxiety or Agitation. traMADol 50 2020-0 Yes [id number] 50mg Take 1 Univers mg tablet 2-17 [id number] tablet by ity of 00:00: mouth [place] 00 every 6 Medical (six) Branch hours as needed for Pain (scale 4-6). LORazepam 1 2020-0 Yes [id number] 1mg Take 1 Univers mg tablet 2-17 tablet by ity o f 00:00: mouth 3 [place] 00 (three) Medical times Branch daily as needed for Anxiety or Agitation. traMADol 50 2020-0 Yes [id number] 50mg Take 1 Univers mg tablet 2-17 [id number] tablet by ity of 00:00: mouth [place] 00 every 6 Medical (six) Branch hours as needed for Pain (scale 4-6). LORazepam 1 2020-0 Yes [id number] 1mg Take 1 Univers mg tablet 2-17 tablet by ity o f 00:00: mouth 3 [place] 00 (three) Medical times Branch daily as needed for Anxiety or Agitation. traMADol 50 2020-0 Yes [id number] 50mg Take 1 Univers mg tablet 2-17 [id number] tablet by ity of 00:00: mouth [place] 00 every 6 Medical (six) Branch hours as needed for Pain (scale 4-6). LORazepam 1 2020-0 Yes [id number] 1mg Take 1 Univers mg tablet 2-17 tablet by ity o f 00:00: mouth 3 [place] 00 (three) Medical times Branch daily as needed for Anxiety or Agitation. traMADol 50 2020-0 Yes [id number] 50mg Take 1 Univers mg tablet 2-17 [id number] tablet by ity of 00:00: mouth [place] 00 every 6 Medical (six) Branch hours as needed for Pain (scale 4-6). LORazepam 1 2020-0 Yes [id number] 1mg Take 1 Univers mg tablet 2-17 tablet by ity o f 00:00: mouth 3 [place] 00 (three) Medical times Branch daily as needed for Anxiety or Agitation. traMADol 50 2020-0 Yes [id number] 50mg Take 1 Univers mg tablet 2-17 [id number] tablet by ity of 00:00: mouth [place] 00 every 6 Medical (six) Branch hours as needed for Pain (scale 4-6). LORazepam 1 2020-0 Yes [id number] 1mg Take 1 Univers mg tablet 2-17 tablet by ity o f 00:00: mouth 3 [place] 00 (three) Medical times Branch daily as needed for Anxiety or Agitation. traMADol 50 2020-0 Yes [id number] 50mg Take 1 Univers mg tablet 2-17 [id number] tablet by ity of 00:00: mouth [place] 00 every 6 Medical (six) Branch hours as needed for Pain (scale 4-6). LORazepam 1 2019-0 Yes [id number] 1mg Take 1 Univers mg tablet 2-17 tablet by ity o f 00:00: mouth 3 [place] 00 (three) Medical times Branch daily as needed for Anxiety or Agitation. traMADol 50 2019-0 Yes [id number] 50mg Take 1 Univers mg tablet 2-17 [id number] tablet by ity of 00:00: mouth [place] 00 every 6 Medical (six) Branch hours as needed for Pain (scale 4-6). LORazepam 1 2019-0 Yes [id number] 1mg Take 1 Univers mg tablet 2-17 tablet by ity o f 00:00: mouth 3 [place] 00 (three) Medical times Branch daily as needed for Anxiety or Agitation. traMADol 50 2019-0 Yes [id number] 50mg Take 1 Univers mg tablet 2-17 [id number] tablet by ity of 00:00: mouth [place] 00 every 6 Medical (six) Branch hours as needed for Pain (scale 4-6). LORazepam 1 2019- No [id number] 1mg Take 1 Univers mg tablet 2-03 03- tablet by ity of 00:00: 00:00 mouth 3 [place] 00 :00 (three) Medical times Branch daily as needed for Anxiety or Agitation. traMADol 50 2019-0 2019- No [id number] 50mg Take 1 Univers mg tablet 2-03 03- [id number] tablet by it y of 00:00: 00:00 mouth [place] 00 :00 every 6 Medical (six) Branch hours as needed for Pain (scale 4-6). LORazepam 1 0 2019- No [id number] 1mg Take 1 Univers mg tablet 2-17 - tablet by ity of 00:00: 00:00 mouth 3 [place] 00 :00 (three) Medical times Branch daily as needed for Anxiety or Agitation. traMADol 50 2019-0 2020- No [id number] 50mg Take 1 Univers mg tablet 2-17 - [id number] tablet by it y of 00:00: 00:00 mouth [place] 00 :00 every 6 Medical (six) Branch hours as needed for Pain (scale 4-6). lisinopril 2019- 2020- No [id number] 20mg Take 1 Univers 20 mg 2-17 03-19 tablet by ity of tablet 00:00: 04:59 mouth [place] 00 :00 daily for Medical 30 days. [place] lisinopril 2020-0 2020- No [id number] 20mg Take 1 Univers 20 mg 2-17 03-19 tablet by ity of tablet 00:00: 04:59 mouth [place] 00 :00 daily for Medical 30 days. [place] lisinopril 2020-0 2020- No [id number] 20mg Take 1 Univers 20 mg 2-17 03-19 tablet by ity of tablet 00:00: 04:59 mouth [place] 00 :00 daily for Medical 30 days. [place] lisinopril 2020-0 2020- No [id number] 20mg Take 1 Univers 20 mg 2-17 -19 tablet by ity of tablet 00:00: 04:59 mouth [place] 00 :00 daily for Medical 30 days. [place] lisinopril 2020-0 2020- No [id number] 20mg Take 1 Univers 20 mg 2-17 03-19 tablet by ity of tablet 00:00: 04:59 mouth [place] 00 :00 daily for Medical 30 days. [place] lisinopril 2020-0 2020- No [id number] 20mg Take 1 Univers 20 mg 2-17 -19 tablet by ity of tablet 00:00: 04:59 mouth [place] 00 :00 daily for Medical 30 days. [place] KCL 2020-0 2020- No 40meq 40 mEq, Univers (KLOR-CON 2-16 02-16 Oral, ity of M20) tablet 23:30: 23:12 ONCE, 1 [place] 40 mEq 00 :00 dose, [facility] 07/03/19 at Branch 1730, Routine enoxaparin 2020-0 Yes 40mg 40 mg, Unive rs (LOVENOX) 2-16 Subcutaneo ity of injection 15:00: us, DAILY, [place] 40 mg 00 First dose Medical on [facility] 07/03/19 at 0900, Until Discontinu ed, Routine thiamine 2020-0 Yes 100mg 100 mg, Unive rs (VITAMIN 2-16 Oral, ity of B1) tablet 15:00: DAILY, [place] 100 mg 00 First dose Medical on [facility] 07/03/19 at 0900, Until Discontinu ed, Routine thiamine 2020-0 Yes IV Univers (VITAMIN 2-16 Infusion, ity of B1) 100 mg, 15:00: at 125 [place] foLIC acid 00 mL/hr, Medical (FOLATE) 1 DAILY, Branch mg, First dose multivitami on [facility] adult 07/03/19 at (INFUVITE 0900, ADULT) Until 3,300 unit- Discontinu 150 mcg/10 ed, 1,000 mL 10 mL in mL NaCl 0.45% (1/2NS) IV Solution aspirin 2020-0 Yes 81mg 81 mg, Univers chewable 2-16 Oral, ity of tablet 81 15:00: DAILY, [place] mg 00 First dose Medical on [facility] 07/03/19 at 0900, Until Discontinu ed, Routine foLIC acid 2020-0 Yes 1mg 1 mg, Univer s (FOLATE) 2-16 Oral, ity of tablet 1 mg 15:00: DAILY, [place] 00 First dose Medical on [facility] 07/03/19 at 0900, Until Discontinu ed, Routine LORazepam 2020-0 Yes 1mg 1 mg, Slow Un luis alfredo (ATIVAN) 2-16 IV Push, ity of injection 1 03:05: Q4HPRN, [place] mg 01 Starting Medical [facility] 07/02/19 at 2105, Until Discontinu ed, Routine, Anxiety, Agitation, Sedation mirtazapine 2020-0 Yes 30mg 30 mg, Univ ers (REMERON) 2-16 Oral, QHS, ity of tablet 30 03:00: First dose [place] mg 00 on [facility] 07/02/19 at Branch 2100, Until Discontinu ed, Routine atorvastati 2020-0 Yes 40mg 40 mg, Univ ers n (LIPITOR) 2-16 Oral, QHS, it y of tablet 40 03:00: First dose [place] mg 00 on [facility] 07/02/19 at Branch 2100, Until Discontinu ed, Routine metoprolol 2020-0 Yes 50mg 50 mg, Unive rs tartrate 2-16 Oral, BID, ity o f (LOPRESSOR) 02:00: First dose [place] tablet 50 00 on [facility] 07/02/19 at Branch 2000, Until Discontinu ed, Routine gabapentin 2020-0 Yes 600mg 600 mg, Uni vers (NEURONTIN) 2-16 Oral, TID, it y of capsule 600 02:00: First dose [place] mg 00 on [facility] 07/02/19 at Branch 2000, Until Discontinu ed, [...] ity o f (PF)) 21:30: 20:33 Push, [place] injection 00 :00 ONCE, 1 Medical 75 mcg dose, Sat Branch 07/02/19 at 1530, STAT acetaminoph 2019-2019- No 1000mg 1,000 mg, Univers en 07-02 Oral, ity of (TYLENOL) 21:15: 20:08 ONCE, 1 [place] tablet 00 :00 dose, Sat Medical 1,000 mg 07/02/19 at [facility] h 1515, IDA LORazepam 2019- 2020- No 1mg 1 mg, Univer s (ATIVAN) 07-02 Oral, ity of tablet 1 mg 21:15: 20:08 ONCE, 1 [place] 00 :00 dose, [facility] Medical 07/02/19 at Branch 1515, IDA ondansetron 2019-0 Yes 4mg 4 mg, Slow Univers (ZOFRAN 15 IV Push, ity of (PF)) 21:11: Q6HPRN, [place] injection 4 50 Starting Medi johnson mg [facility] Branch 07/02/19 at 1511, Until Discontinu ed, Routine, Nausea and Vomiting (N/V) morpHINE 2019-0 2020- No 2mg 2 mg, Slow Un luis alfredo injection 2 07-02 IV Push, ity of mg 21:11: 03[facility] [address] [place] 40 :25 Starting Medical [facility] Branch 07/02/19 at 1511, Until 07/02/19 at [...] Medical evening. Branch aspirin 81 2020-0 Yes [id number] 81mg Take 1 U nivers mg chewable 1-01 tablet by ity of tablet 00:00: mouth [place] 00 daily. Medical Branch aspirin 81 2020-0 Yes [id number] 81mg Take 1 U nivers mg chewable 1-01 tablet by ity of tablet 00:00: mouth [place] 00 daily. Medical Branch aspirin 81 2020-0 Yes [id number] 81mg Take 1 U nivers mg chewable 1-01 tablet by ity of tablet 00:00: mouth [place] 00 daily. Medical Branch aspirin 81 2020-0 Yes [id number] 81mg Take 1 U nivers mg chewable 1-01 tablet by ity of tablet 00:00: mouth [place] 00 daily. Medical Branch aspirin 81 2020-0 Yes [id number] 81mg Take 1 U nivers mg chewable 1-01 tablet by ity of tablet 00:00: mouth [place] 00 daily. Medical Branch aspirin 81 2020-0 Yes [id number] 81mg Take 1 U nivers mg chewable 1-01 tablet by ity of tablet 00:00: mouth [place] 00 daily. Medical Branch aspirin 81 2020-0 Yes [id number] 81mg Take 1 U nivers mg chewable 1-01 tablet by ity of tablet 00:00: mouth [place] 00 daily. Medical Branch aspirin 81 2020-0 Yes [id number] 81mg Take 1 U nivers mg chewable 1-01 tablet by ity of tablet 00:00: mouth [place] 00 daily. Medical Branch aspirin 81 2020-0 Yes [id number] 81mg Take 1 U nivers mg chewable 1-01 tablet by ity of tablet 00:00: mouth [place] 00 daily. Medical Branch aspirin 81 2019- No [id number] 81mg Take 1 Univers mg chewable 05-18 tablet by it y of tablet 00:00: 00:00 mouth [place] 00 :00 daily. Medical Branch lisinopril 2019- No [id number] 2.5mg Take 1 Univers 2.5 mg 05-18 tablet by ity of tablet 00:00: 00:00 mouth [place] 00 :00 daily. Medical Branch lisinopril 2019- No [id number] 2.5mg Take 1 Univers 2.5 mg 05-18 tablet by ity of tablet 00:00: 00:00 mouth [place] 00 :00 daily. Medical Branch atorvastati 2018-05 Yes [id number] 40mg Take 1 Univers n 40 mg 2-31 tablet by ity of tablet 00:00: mouth at [place] 00 bedtime. Medical Branch nitroglycer 2018-[id number] 1 Univers in 0.3 mg 2-31 tablet ity of sublingual 00:00: under the [place] tablet 00 tongue Medical every 5 Branch (five) minutes as needed for Chest pain. metoprolol 2018-05 Yes [id number] 50mg Take 1 U nivers tartrate 50 2-31 tablet by ity of mg tablet 00:00: mouth 2 [place] (two) Medical times Branch daily. atorvastati 2018-05 Yes [id number] 40mg Take 1 Univers n 40 mg 2-31 tablet by ity of tablet 00:00: mouth at [place] 00 bedtime. Medical Branch nitroglycer 2018-[id number] 1 Univers in 0.3 mg 2-31 tablet ity of sublingual 00:00: under the [place] tablet 00 tongue Medical every 5 Branch (five) minutes as needed for Chest pain. metoprolol 2018-05 Yes [id number] 50mg Take 1 U nivers tartrate 50 2-31 tablet by ity of mg tablet 00:00: mouth 2 [place] 00 (two) Medical times Branch daily. atorvastati 2018-05 Yes [id number] 40mg Take 1 Univers n 40 mg 2-31 tablet by ity of tablet 00:00: mouth at [place] [address] bedtime. Medical Branch nitroglycer 2018-[id number] 1 Univers in 0.3 mg 2-31 tablet ity of sublingual 00:00: under the [place] tablet 00 tongue Medical every 5 Branch (five) minutes as needed for Chest pain. metoprolol 2018-05 Yes [id number] 50mg Take 1 U nivers tartrate 50 2-31 tablet by ity of mg tablet 00:00: mouth 2 [place] (two) Medical times Branch daily. atorvastati 2018-05 Yes [id number] 40mg Take 1 Univers n 40 mg 2-31 tablet by ity of tablet 00:00: mouth at [place] bedtime. Medical Branch nitroglycer 2018-[id number] 1 Univers in 0.3 mg 2-31 tablet ity of sublingual 00:00: under the [place] tablet 00 tongue Medical every 5 Branch (five) minutes as needed for Chest pain. metoprolol 2018-05 Yes [id number] 50mg Take 1 U nivers tartrate 50 2-31 tablet by ity of mg tablet 00:00: mouth 2 [place] (two) Medical times Branch daily. atorvastati 2018-05 Yes [id number] 40mg Take 1 Univers n 40 mg 2-31 tablet by ity of tablet 00:00: mouth at [place] bedtime. Medical Branch nitroglycer 2018-[id number] 1 Univers in 0.3 mg 2-31 tablet ity of sublingual 00:00: under the [place] tablet 00 tongue Medical every 5 Branch (five) minutes as needed for Chest pain. metoprolol 2018-05 Yes [id number] 50mg Take 1 U nivers tartrate 50 2-31 tablet by ity of mg tablet 00:00: mouth 2 [place] (two) Medical times Branch daily. atorvastati 2018-05 Yes [id number] 40mg Take 1 Univers n 40 mg 2-31 tablet by ity of tablet 00:00: mouth at [place] [address] bedtime. Medical Branch nitroglycer 2018-[id number] 1 Univers in 0.3 mg 2-31 tablet ity of sublingual 00:00: under the [place] tablet 00 tongue Medical every 5 Branch (five) minutes as needed for Chest pain. nitroglycer 2018-[id number] 1 Univers in 0.3 mg 2-31 tablet ity of sublingual 00:00: under the [place] tablet 00 tongue Medical every 5 Branch (five) minutes as needed for Chest pain. oxazepam 15 2018-05 Yes [id number] 15mg Take 1 Univers mg capsule 2-31 capsule by ity of 00:00: mouth [place] 00 every 4 Medical (four) Branch hours as needed for Anxiety. PRN nitroglycer 2018-[id number] 1 Univers in 0.3 mg 2-31 tablet ity of sublingual 00:00: under the [place] tablet 00 tongue Medical every 5 Branch (five) minutes as needed for Chest pain. nitroglycer 2018-[id number] 1 Univers in 0.3 mg 2-31 tablet ity of sublingual 00:00: under the [place] tablet 00 tongue Medical every 5 Branch (five) minutes as needed for Chest pain. metoprolol 2018-05 Yes [id number] 50mg Take 1 U nivers tartrate 50 2-31 tablet by ity of mg tablet 00:00: mouth 00 (two) Medical times Branch daily. nitroglycer 2018-[id number] 1 Univers in 0.3 mg 2-31 tablet ity of sublingual 00:00: under the [place] tablet 00 tongue Medical every 5 Branch (five) minutes as needed for Chest pain. nitroglycer 2018-[id number] 1 Univers in 0.3 mg 2-31 tablet ity of sublingual 00:00: under the [place] tablet 00 tongue Medical every 5 Branch (five) minutes as needed for Chest pain. nitroglycer 2018-[id number] 1 Univers in 0.3 mg 2-31 tablet ity of sublingual 00:00: under the [place] tablet 00 tongue Medical every 5 Branch (five) minutes as needed for Chest pain. nitroglycer 2018-[id number] 1 Univers in 0.3 mg 2-31 tablet ity of sublingual 00:00: under the [place] tablet 00 tongue Medical every 5 Branch (five) minutes as needed for Chest pain. nitroglycer 2018-[id number] 1 Univers in 0.3 mg 2-31 tablet ity of sublingual 00:00: [place] tablet 00 tongue Medical every 5 Branch (five) minutes as needed for Chest pain. atorvastati 2018-05 Yes [id number] 40mg Take 1 Univers n 40 mg 2-31 tablet by ity of tablet 00:00: mouth at [place] 00 bedtime. Medical Branch nitroglycer 2018-[id number] 1 Univers in 0.3 mg 2-31 tablet ity of sublingual 00:00: [place] tablet 00 tongue Medical every 5 Branch (five) minutes as needed for Chest pain. oxazepam 2018-05 Yes [id number] 15mg Take 1 Univers mg capsule 2-31 capsule by ity of 00:00: mouth [place] 00 every 4 Medical (four) Branch hours as needed for Anxiety. PRN metoprolol 2018-05 Yes [id number] 50mg Take 1 U nivers tartrate 50 2-31 tablet by ity of mg tablet 00:00: mouth 2 [place] 00 (two) Medical times Branch daily. atorvastati 2018-05 Yes [id number] 40mg Take 1 Univers n 40 mg 2-31 tablet by ity of tablet 00:00: mouth at [place] 00 bedtime. Medical Branch nitroglycer 2018-[id number] 1 Univers in 0.3 mg 2-31 tablet ity of sublingual 00:00: [place] tablet 00 tongue Medical every 5 Branch (five) minutes as needed for Chest pain. oxazepam 2018-05 Yes [id number] 15mg Take 1 Univers mg capsule 2-31 capsule by ity of 00:00: mouth [place] 00 every 4 Medical (four) Branch hours as needed for Anxiety. PRN metoprolol 2018-05 Yes [id number] 50mg Take 1 U nivers tartrate 50 2-31 tablet by ity of mg tablet 00:00: mouth 2 [place] 00 (two) Medical times Branch daily. atorvastati 2018-05 Yes [id number] 40mg Take 1 Univers n 40 mg 2-31 tablet by ity of tablet 00:00: mouth at [place] 00 bedtime. Medical Branch nitroglycer 2018-[id number] 1 Univers in 0.3 mg 2-31 tablet ity of sublingual 00:00: [place] tablet 00 tongue Medical every 5 Branch (five) minutes as needed for Chest pain. metoprolol 2018-05 Yes [id number] 50mg Take 1 U nivers tartrate 50 2-31 tablet by ity of mg tablet 00:00: mouth 2 [place] 00 (two) Medical times Branch daily. nitroglycer 2018-05- No [id number] .3mg Place 1 Univers in 0.3 mg 02-20 tablet ity of sublingual 00:00: 00:00 [place] the [place] tablet 00 :00 tongue Medical every 5 Branch (five) minutes as needed for Chest pain. nitroglycer 2018-05- No [id number] .3mg Place 1 Univers in 0.3 mg 02-20 tablet ity of sublingual 00:00: 00:00 [place] the [place] tablet 00 :00 tongue Medical every 5 Branch (five) minutes as needed for Chest pain. atorvastati 2018-05- No [id number] 40mg Take 1 Univers n 40 mg 08-16 tablet by ity of tablet 00:00: 00:00 mouth at [place] 00 :00 bedtime. Medical Branch metoprolol 2018-05- No [id number] 50mg Take 1 Univers tartrate 50 08-16 tablet by it y of mg tablet 00:00: 00:[place] :[place] (two) Medical times Branch daily. oxazepam 15 2018-05 2020- No [id number] 15mg Take 1 Univers mg capsule 07-04 capsule by it y of 00:00: 00:00 mouth [place] 00 :00 every 4 Medical (four) Branch hours as needed for Anxiety. PRN Vital Signs Vital Name Observation Time Observation Value Comments Source Systolic blood 2021-12-09 02:22:00 119 mm[Hg] Univer sity of pressure [facility] Diastolic blood 2021-12-09 02:22:00 81 mm[Hg] [facility] Heart rate 2021-12-09 02:22:00 94 /min [facility] Body temperature 2021-12-09 02:22:00 36.67 Kaylee [facility] Res[facility] rate 2021-12-09 02:22:00 18 /min [facility] Body height 2021-12-09 02:22:00 177.8 cm [facility] Body weight 2021-12-09 02:22:00 79.379 kg [facility] BMI 2021-12-09 02:22:00 25.11 kg/m2 [facility] [place] [facility] Oxygen saturation in 2021-12-09 02:22:00 99 /min University of Arterial blood by [facility] Pulse oximetry Branch Systolic blood 2020-02-21 13:56:00 130 mm[Hg] Univer sity of pressure [place] [facility] Diastolic blood 2020-02-21 13:56:00 85 mm[Hg] Unive rsity of pressure [place] [facility] Heart rate 2020-02-21 13:55:00 68 /min [facility] [place] [facility] Respiratory rate 2020-02-21 13:55:00 19 /min Univ ersity [facility] [place] [facility] Body height 2020-02-21 13:55:00 177.8 cm [facility] [place] [facility] Body weight 2020-02-21 13:55:00 96.117 kg [facility] [place] [facility] BMI 2020-02-21 13:55:00 30.40 kg/m2 [facility] [place] [facility] Oxygen saturation in 2020-02-21 13:55:00 98 /min University of Arterial blood by [facility] Pulse oximetry Branch Systolic blood 2019-11-18 14:41:00 147 mm[Hg] Univer sity of pressure [place] [facility] Diastolic blood 2019-11-18 14:41:00 88 mm[Hg] Unive rsity of pressure [place] [facility] Heart rate 2019-11-18 14:41:00 103 /min [facility] [place] [facility] Body temperature 2019-11-18 14:41:00 37.17 Kaylee Univ [facility] [place] [facility] Respiratory rate 2019-11-18 14:41:00 18 /min Univ ersity [facility] [place] [facility] Body height 2019-11-18 14:41:00 177.8 cm [facility] [place] [facility] Body weight 2019-11-18 14:41:00 106.595 kg [facility] [place] [facility] BMI 2019-11-18 14:41:00 33.72 kg/m2 [facility] [place] [facility] Oxygen saturation in 2019-11-18 14:41:00 98 /min University of Arterial blood by [facility] Pulse oximetry Branch Systolic blood 2019-11-18 14:41:00 147 mm[Hg] Univer sity of pressure [place] [facility] Diastolic blood 2019-11-18 14:41:00 88 mm[Hg] Unive rsity of pressure [place] [facility] Heart rate 2019-11-18 14:41:00 103 /min [facility] [place] [facility] Body temperature 2019-11-18 14:41:00 37.17 Kaylee Univ [facility] [place] [facility] Respiratory rate 2019-11-18 14:41:00 18 /min Univ ersity [facility] [place] [facility] Body height 2019-11-18 14:41:00 177.8 cm [facility] [place] [facility] Body weight 2019-11-18 14:41:00 106.595 kg [facility] [place] [facility] BMI 2019-11-18 14:41:00 33.72 kg/m2 [facility] [place] [facility] Oxygen saturation in 2019-11-18 14:41:00 98 /min University of Arterial blood by [facility] Pulse oximetry Branch Systolic blood 2019-07-10 23:35:00 153 mm[Hg] Univer sity of pressure [place] [facility] Diastolic blood 2019-07-10 23:35:00 83 mm[Hg] Unive rsity of pressure [place] [facility] Heart rate 2019-07-10 23:35:00 90 /min [facility] [place] [facility] Body temperature 2019-07-10 23:35:00 36.67 Kaylee Univ ers[facility] [place] [facility] Respiratory rate 2019-07-10 23:35:00 18 /min Univ ers[facility] [place] [facility] Body height 2019-07-10 23:35:00 177.8 cm [facility] [place] [facility] Body weight 2019-07-10 23:35:00 117.935 kg [facility] [place] [facility] BMI 2019-07-10 23:35:00 37.31 kg/m2 [facility] [place] [facility] Oxygen saturation in 2019-07-10 23:35:00 96 /min University of Arterial blood by [facility] Pulse oximetry Branch Systolic blood 2019-07-10 23:35:00 153 mm[Hg] Univer sity of pressure [place] [facility] Diastolic blood 2019-07-10 23:35:00 83 mm[Hg] Unive rsity of pressure [place] [facility] Heart rate 2019-07-10 23:35:00 90 /min [facility] [place] [facility] Body temperature 2019-07-10 23:35:00 36.67 Kaylee Univ [facility] [place] [facility] Respiratory rate 2019-07-10 23:35:00 18 /min Univ ersity [facility] [place] [facility] Body height 2019-07-10 23:35:00 177.8 cm [facility] [place] [facility] Body weight 2019-07-10 23:35:00 117.935 kg [facility] [place] [facility] BMI 2019-07-10 23:35:00 37.31 kg/m2 [facility] [place] [facility] Oxygen saturation in 2019-07-10 23:35:00 96 /min University of Arterial blood by [facility] johnson Pulse oximetry Branch Systolic blood 2019-07-04 21:00:00 158 mm[Hg] Univer sity of pressure [place] [facility] Diastolic blood 2019-07-04 21:00:00 106 mm[Hg] Unive rsity of pressure [place] [facility] Heart rate 2019-07-04 21:00:00 98 /min [facility] [place] [facility] Body temperature 2019-07-04 21:00:00 36.67 Kaylee [facility] [place] [facility] Respiratory rate 2019-07-04 21:00:00 20 /min Univ [facility] [place] [facility] Oxygen saturation in 2019-07-04 21:00:00 99 /min University of Arterial blood by [facility] Pulse oximetry Branch Body height 2019-07-02 21:10:00 177.8 cm [facility] [place] [facility] Body weight 2019-07-02 21:10:00 117.935 kg [facility] [place] [facility] BMI 2019-07-02 21:10:00 37.31 kg/m2 [facility] [place] [facility] Systolic blood 2019-07-04 21:00:00 158 mm[Hg] Univer sity of pressure [place] [facility] Diastolic blood 2019-07-04 21:00:00 106 mm[Hg] Unive rsity of pressure [place] [facility] Heart rate 2019-07-04 21:00:00 98 /min [facility] [place] [facility] Body temperature 2019-07-04 21:00:00 36.67 Kaylee Univ [facility] [place] [facility] Respiratory rate 2019-07-04 21:00:00 20 /min Univ [facility]ity [facility] [place] [facility] Oxygen saturation in 2019-07-04 21:00:00 99 /min University of Arterial blood by [place] [employer] johnson Pulse oximetry Branch Body height 2019-07-02 21:10:00 177.8 cm [facility] [place] [facility] [place] Body weight 2019-07-02 21:10:00 117.935 kg [facility] [place] [facility] BMI 2019-07-02 21:10:00 37.31 kg/m2 [facility] [place] [facility] Systolic blood 2019-06-01 19:53:00 130 mm[Hg] Univer sity of pressure [place] [facility] Diastolic blood 2019-06-01 19:53:00 90 mm[Hg] Unive rsity of pressure [facility] Heart rate 2019-06-01 19:53:00 78 /min Universi ty of [facility] Branch Respiratory rate 2019-06-01 19:53:00 19 /min Univ ersity of [facility] Body height 2019-06-01 19:53:00 177.8 cm Universi ty of [facility] Body weight 2019-06-01 19:53:00 122.154 kg Universi ty of [facility] BMI 2019-06-01 19:53:00 38.64 kg/m2 Universi ty of [facility] Oxygen saturation in 2019-06-01 19:53:00 97 /min University of Arterial blood by [facility] Pulse oximetry Branch Systolic blood 2019-06-01 19:53:00 130 mm[Hg] Univer sity of pressure [facility] Branch Diastolic blood 2019-06-01 19:53:00 90 mm[Hg] Unive rsity of pressure [facility] Heart rate 2019-06-01 19:53:00 78 /min [facility] [place] [facility] Respiratory rate 2019-06-01 19:53:00 19 /min Univ ersity of [facility] Body height 2019-06-01 19:53:00 177.8 cm [facility] [place] [facility] [place] Body weight 2019-06-01 19:53:00 122.154 kg [facility] [place] [facility] BMI 2019-06-01 19:53:00 38.64 kg/m2 Universi ty of [facility] Branch Oxygen saturation in 2019-06-01 19:53:00 97 /min University of Arterial blood by [facility] Pulse oximetry Branch Procedures Procedure Date / Time Performing Clinician Source Performed XR CHEST 1 VW 2021-12-09 02:40:45 Zaki Galvan [facility] LIPASE 2021-12-09 02:32:00 Zaki Galvan [facility] TROPONIN I 2021-12-09 02:32:00 Zaki Galvan [facility] COMP. METABOLIC PANEL 2021-12-09 02:32:00 Zaki Galvan [facility] ([id number]) Medical Branch CBC WITH DIFF 2021-12-09 02:32:00 Zaki Galvan [facility] PROTHROMBIN TIME / INR 2021-12-09 02:32:00 Zaki Galvan [facility] Medical [place] COVID-19 (ID NOW RAPID 2021-12-09 02:32:00 Cole [facility] TESTING) Medical Branch CONSENT/REFUSAL FOR 2021-12-09 02:17:21 Doctor Unassigned, No [facility] [place] DIAGNOSIS AND TREATMENT Name Medical Branch EXTERNAL PROVIDER - ADC 2020-02-08 05:01:00 Doctor Unassigned, N o [facility] CARDIOLOGY Name Medical Branch NOTICE OF PRIVACY 2019-11-18 14:36:16 Doctor Unassigned, No [facility] PRACTICES Name Medical Branch CONSENT/REFUSAL FOR 2019-11-18 14:36:00 Doctor Unassigned, No [facility] [place] DIAGNOSIS AND TREATMENT Name Medical Branch NOTICE OF PRIVACY 2019-07-10 23:30:15 Doctor Unassigned, No [facility] PRACTICES Name Medical Branch CONSENT/REFUSAL FOR 2019-07-10 23:29:51 Doctor Unassigned, No [facility] [place] DIAGNOSIS AND TREATMENT Name Medical Branch MAGNESIUM 2019-07-04 18:37:00 [facility] BASIC METABOLIC PANEL 2019-07-04 18:37:00 [facility] (NA, K, CL, CO2, Medical Branch GLUCOSE, BUN, CREATININE, CA) MAGNESIUM 2019-07-03 07:55:00 Geoffrey [facility] TROPONIN I 2019-07-03 07:55:00 Geoffrey [facility] BASIC METABOLIC PANEL 2019-07-03 07:55:00 [facility] (NA, K, CL, CO2, Medical Branch GLUCOSE, BUN, CREATININE, CA) CBC WITH DIFFERENTIAL 2019-07-03 07:55:00 Desean Hale [facility] TROPONIN I 2019-07-02 23:18:00 [facility] ADC / LCC - DRUG SCREEN 2019-07-02 19:50:00 Dwight Noel [facility] XR RIBS 3 VW LEFT 2019-07-02 18:57:39 Dwight Noel [facility] XR CHEST 1 VW 2019-07-02 18:46:06 Dwight Noel [facility] LIPASE 2019-07-02 18:14:00 Dwight Noel [facility] MAGNESIUM 2019-07-02 18:14:00 Bert Dwight [facility] TROPONIN I 2019-07-02 18:14:00 Bert [facility] HEPATIC FUNCTION PANEL 2019-07-02 18:14:00 Dwight Noel [facility] ([id number]) (ALB,T.PRO,BILI [facility] T,BU/BC,ALT,AST,ALK PHOS) BASIC METABOLIC PANEL 2019-07-02 18:14:00 Dwight Noel [facility] (NA, K, CL, CO2, Medical Branch GLUCOSE, BUN, CREATININE, CA) ETHANOL 2019-07-02 18:14:00 Bert Dwight [facility] CBC WITH DIFFERENTIAL 2019-07-02 18:14:00 Bert Dwight [facility] PROTHROMBIN TIME / INR 2019-07-02 18:14:00 Dwight Nole [facility] ACTIVATED PARTIAL 2019-07-02 18:14:00 [facility]-BNP 2019-07-02 18:14:[address] [facility] EKG-12 LEAD 2019-07-02 17:45:17 Bert [facility] Encounters Start End Encounter Admission Attending Care Care Encounter Source Date/Time Date/Time Type Type Clinicians Facility Department ID 2022-02-28 Outpatient [facility] [id number] [place] 06:34:54 [id number] [facility] 2022-02-27 Outpatient [facility] [id number] [place] 14:33:13 [id number] [facility] 2022-02-13 Outpatient Moura, STLMLC STLMLC Common 16:02:[address] [facility] 2022-01-24 Outpatient Moura, STLMLC STLC Common 10:37:[address] [facility] 2022-01-22 Outpatient Moura, STLMLC STLC Common 11:29:[address] [facility] 2021-08-16 Outpatient BAYTN SMITATN [id number] [place] 14:59:50 [id number] [facility] 2021-08-14 [id number] [place] 13:27:24 [id number] [facility] 2021-06-12 Outpatient Moura, STLMLC STLC Common 14:30:[address] [facility] 2021-06-12 Outpatient Moura, STLMLC STLC Common 14:25:[id number] [facility] 2021-06-12 Outpatient Moura, STLMLC STLC Common 13:50:[id number] [facility] 2021-06-12 Outpatient Moura, STLMLC STLC Common 13:25:[id number] [facility] 2021-06-12 Outpatient Moura, STLMLC STLC Common 13:10:[id number] [facility] 2021-06-12 Outpatient Moura, STLMLC STLC Common 12:58:[id number] [facility] 2021-06-12 Outpatient Moura, STLMLC STLC Common 12:47:[id number] [facility] 2021-06-12 Outpatient Moura, STLMLC STLC Common 12:27:[id number] [facility] 2021-06-12 Outpatient Moura, STLMLC STLMLC [id number] Common 12:26:[id number] [facility] 2021-06-12 Outpatient Moura, STLMLC STLMLC [id number] Common 12:26:[id number] [facility] 2021-06-12 Outpatient Moura, STLMLC STLMLC [id number] Common 12:24:[id number] [facility] 2021-06-12 Outpatient Moura, STLMLC STLMLC [id number] Common 12:22:[id number] [facility] 2021-06-12 Outpatient Stan, [facility] [id number] Common 11:41:[id number] [facility] 2021-06-12 Outpatient Millender, STLMLC STLMLC [id number] Common 11:36:[id number] [facility] 2021-06-12 Outpatient Devine, STLMLC STLC [id number] Common 11:18:[id number] [facility] 2021-03-15 Emergency [facility] [id number] Univers 04:29:04 ity [facility] 2016-06-11 Inpatient C [facility] [id number] [facility]. 15:30:00 [facility] 2021-12-08 2021-12-08 Emergency X Avtar MUÑOZ [facility] ERT [id number] Univers 21:17:00 22:10:00 ity [facility] 2021-12-08 2021-12-08 Emergency Avtar Muñoz [facility] [id number] Univers 21:17:00 22:10:00 Caryn TELLO [id number] i ty [facility] [id number] [facility] [phone] [place] [address] Branch 2021-04-26 2021-04-26 [facility] [id number] Univers 00:00:00 00:00:00 Melchor TELLO [id number] ity [phone] [place] [id number] [facility] 2020-08-01 2020-08-01 Refill [facility] 1.2.840.114 [id number] Univers 00:00:00 00:00:00 Qiangjun Drumright [id number] it[id number] [phone] [address] 2020-05-14 2020-05-14 Refill [facility] 1.2.840.114 [id number] Univers 00:00:00 00:00:00 Qiadukejun Drumright [id number] ity [id number] [phone] [address] 2020-02-21 2020-02-21 Office [facility] 1.2.840.114 [id number] Univers 08:44:09 09:23:32 Visit Dianne Tello [id number] ity [id number] [phone] [address] 2020-02-21 2020-02-21 Outpatient R ALEXANDRA [facility] [id number] Univers 09:00:00 09:00:00 SENDIL ity of [facility] 2020-02-08 2020-02-08 Telephone [facility] [id number] Univers 00:00:00 00:00:00 Melchor Macdonaldton [id number] it[id number] [phone] [address] 2020-02-08 2020-02-08 Orders Doctor MEEKS 1.2.840.114 [id number] Univers 00:00:00 00:00:00 Only Unassigned, DELROY [id number] ity of [place] [facility] [id number] Akbar as [phone] [address] 2020-01-27 2020-01-27 Refill [facility], [facility] 1.2.840.114 [id number] Univers 00:00:00 00:00:00 Qiazuleima Drumright [id number] [id number] [phone] Dc dical [facility] 2020-01-10 2020-01-10 Telephone [facility], [facility] [id number] Univers 00:00:00 00:00:00 Qianguzma Drumright [id number] ity of [id number] [phone] Dc dic[address] 2019-11-18 2019-11-18 Emergency Zuniga, [facility] [id number] Univers 09:42:51 11:00:00 Anselmo Drumright [id number] i ty of [id number] [phone] [address] 2019-11-18 2019-11-18 Emergency Zuniga, [facility] [id number] 09:42:51 11:00:00 Anselmo Macdonaldton [id number] [place] [id number] [place] [phone] [facility] 2019-10-23 2019-10-23 [facility], [facility] [id number] [facility] 00:00:00 00:00:00 Usamadukeuzma Drumright [id number] it[id number] [phone] Dc dical [address] 2019-10-23 2019-10-23 Telephone [facility], [facility] [id number] 00:00:00 00:00:00 Qiazuleima Drumright [id number] [place] [id number] Professio [phone] [address] 2019-09-21 2019-09-21 Telephone [facility], [facility] [id number] Univers 00:00:00 00:00:00 Melchor Macdonaldton [id number] ity of [id number] [phone] [address] 2019-09-21 2019-09-21 Telephone [facility] [id number] 00:00:00 00:00:00 Melchor Drumright [id number] [place] [id number] Professio [phone] [address] 2019-08-17 2019-08-17 [facility] 1.2.840.114 [id number] [facility] 14:22:37 15:02:11 ne Visit Melchor Macdonaldton 350.1.13.10 ity [id number] [phone] [address] 2019-08-17 2019-08-17 [facility] 1.2.840.114 [id number] 14:22:37 15:02:11 ne Visit Melchor Macdonaldton 350.1.13.10 [place] [id number] Professio [phone] [address] 2019-08-17 2019-08-17 Outpatient R [facility] [id number] Univers 14:40:00 14:40:00 USAMADUKEUZMA ity o f [facility] 2019-07-27 2019-07-27 [facility] [id number] Univers 00:00:00 00:00:00 Melchor Macdonaldton [id number] it[id number] [phone] [address] 2019-07-27 2019-07-27 [facility] [id number] 00:00:00 00:00:00 Melchor Macdonaldton [id number] [place] [id number] Professio [phone] [address] 2019-07-10 2019-07-10 Emergency Zuniga, [facility] [id number] [facility] 17:33:57 18:51:00 Anselmo Tello 350.1.13.10 i ty of [id number] [phone] [address] 2019-07-10 2019-07-10 Emergency Zuniga, [facility] [id number] 17:33:57 18:51:00 Anselmo Tello [id number] [place] [id number] [place] [phone] [facility] 2019-07-10 2019-07-10 Orders Doctor JEANNA 1.2.840.114 [id number] Univers 00:00:00 00:00:00 Only Unassigned, DELROY 350.1.13.10 ity of [place] [facility] 4.2.7.2.686 Akbar as [phone] [address] 2019-07-10 2019-07-10 Orders Doctor MEEKS 1.2.840.114 [id number] 00:00:00 00:00:00 Only Unassigned, DELROY 350.1.13.10 [place] [facility] 4.2.7.2.686 [phone] [facility] 2019-07-08 2019-07-08 Telephone [facility] 1.2.840.114 [id number] [facility] 00:00:00 00:00:00 Chago Tello 350.1.13.10 i ty [id number] [phone] Dc dical [address] 2019-07-08 2019-07-08 Telephone [facility] 1.2.840.114 [id number] 00:00:00 00:00:00 Chago Tello 350.1.13.10 [place] [id number] Professio [phone] [address] 2019-07-05 2019-07-05 Transition Tawana Franco 1.2.840.114 [id number] Univers 00:00:00 00:00:00 of Care Flori Méndez 350.1.13.10 it y of [place] [phone] [facility] 403 Branch 2019-07-05 2019-07-05 Transition Tawana Franco 1.2.840.114 [id number] 00:00:00 00:00:00 of Care Flori Méndez 350.1.13.10 [place] 4.2.7.2.686 [phone] 403 2019-07-02 2019-07-04 Inpatient X [facility] [id number] Univers 11:42:40 18:46:00 ity of [facility] 2019-07-02 2019-07-04 [facility] Dwight Noel [facility] 1.2.840.1 [id number] Univers 11:42:40 18:46:00 Encounter Desean Hale 350.1.13.10 ity of [id number] [phone] [facility] 081 [place] 2019-07-02 2019-07-04 [facility] Dwight Noel [facility] 1.2.840.1 [id number] 11:42:40 18:46:00 Encounter Desean Hale 350.1.13.10 [place] [id number] [place] [phone] [facility] 2019-06-13 2019-06-13 [facility] 1.2.840.114 [id number] Univers 00:00:00 00:00:00 Chago Tello 350.1.13.10 i ty [id number] [phone] Dc dical [address] 2019-06-13 2019-06-13 [facility] 1.2.840.114 [id number] 00:00:00 00:00:00 Chago Tello 350.1.13.10 [place] 4.2.7.2.686 Professio [phone] [address] 2019-06-01 2019-06-01 Office [facility] [id number] 13:31:45 14:23:22 Visit Melchor Tello 350.1.13.10 ity of [place] 4.2.7.2.686 Elsie ambriz Professio [phone] Dc dical nal 059 [facility] 2019-06-01 2019-06-01 Office [facility] [id number] 13:31:45 14:23:22 Visit Melchor Tello [id number] [place] 4.2.7.2.686 Professio [phone] [address] Results Test Description Test Time Test [...] indications. Lab Interpretation (test code = Normal 07498-6) [facility] METABOLIC PANEL (NA, K, CL, CO2, GLUCOSE, BUN, CREATININE, CA)2019-07-04 19:25:00 Test Item Value Reference Range Interpretation Comments NA (test code = 137 mmol/L 135-145 3507277404) K (test code = 4.1 mmol/L 3.5-5 0713385902) CL (test code = 102 mmol/L 98-108 1803579722) CO2 TOTAL (test code = 27 mmol/L 23-31 1753943850) AGAP (test code = 2-16 7439026846) BUN (test code = 12 mg/dL 7-23 2486664307) GLUCOSE (test code = 103 mg/dL 70-110 9030631691) CREATININE (test code 0.70 mg/dL 0.6-1.25 = 0442802470) CALCIUM (test code = 8.8 mg/dL 8.6-10.6 4021212735) eGFR Calculation mL/min/1.73m2 (Non-) (test code = 8591878370) eGFR Calculation mL/min/1.73m2 () (test code = 7090537529) DAQUAN (test code = DAQUAN) Association of [...] or urine or abnormalities in imaging tests). [facility] 19:24[facility]00 Test Item Value Reference Range Interpretation Comments MAGNESIUM (test code = 2697613047) 2.3 mg/dL 1.7-2.4 Lab Interpretation (test code = Normal 36004-1) [facility] 3 VW [id number] 14:21:01 Left seventh through tenth rib fractures. [...] have reviewed this study and agree withthe abovereport.[facility] 2019-07-03 08:28:00 Test Item Value Reference Range Interpretation Comments TROPONIN I (test <0.012 See_Comment [Automated code = 5249670328) message] The system which generated this result [...] ? Lab Interpretation Normal (test code = 28052-7) [facility] Metabolic Panel (NA, K, CL, CO2, GLUCOSE, BUN, CREATININE, CA)2019-07-03 08:17:00 Test Item Value Reference Range Interpretation Comments NA (test code = 132 mmol/L 135-145 L 5628584911) K (test code = 3.3 mmol/L 3.5-5 L 3358096307) CL (test code = 94 mmol/L 98-108 L 0924218237) CO2 TOTAL (test code = 27 mmol/L 23-31 1692516405) AGAP (test code = 2-16 6925465308) BUN (test code = 18 mg/dL 7-23 2611197324) GLUCOSE (test code = 116 mg/dL 70-110 H 5917655105) CREATININE (test code = 0.68 mg/dL 0.6-1.25 0200806326) CALCIUM (test code = 8.6 mg/dL 8.6-10.6 9990379385) eGFR Calculation mL/min/1.73m2 (Non-) (test code = 0495075464) eGFR Calculation mL/min/1.73m2 () (test code = 5242966938) DAQUAN (test code = DAQUAN) Association of [...] tests). Lab Interpretation Abnormal (test code = 93996-2) [facility] [id number] 08:17:00 Test Item Value Reference Range Interpretation Comments MAGNESIUM (test code = 0896666283) 1.7 mg/dL 1.7-2.4 Lab Interpretation (test code = Normal 36863-3) [facility] WITH [id number] 08:04:00 Test Item Value Reference Range Interpretation Comments WBC (test code = See_Comment [Automated 1790-2) message] The sy stem which generated this result transmitted reference range : 4.20 - 10.70 10*3/?L. The reference range was not used to interpret this result as normal/abnormal . RBC (test code = See_Comment [Automated 069-8) message] The sy stem which generated this [...] RDW-SD (test code = 41.0 fL 38.5-51.6 97417-1) RDW-CV (test code = 14.0 % 12.1-15.4 788-0) PLT (test code = See_Comment L [Automated 777-3) message] The sy stem which generated this result transmitted reference range : 150 - 328 10*3/ ?L. The reference r susan was not used to interpret this result as normal/abnormal . MPV (test code = 9.8 fL 9.8-13 81498-1) NRBC/100 WBC (test See_Comment [Automat ed code = 6385064993) message] The system which generated this result transmitted reference range : 0.0 - 10.0 /100 WBCs. The refer ence range was not u sed to interpret th is result as normal/abnormal . NRBC x10^3 (test code <0.01 See_Comment [Auto mated = 3578662993) message] The s ystem which generated this result transmitted reference range : 10*3/?L. The reference range was not used to interpret this result as normal/abnormal . GRAN MAT (NEUT) % 76.1 % (test code = 770-8) IMM GRAN % (test code 0.30 % = 5592638873) LYMPH % (test code = 15.8 % 736-9) MONO % (test code = 7.0 % 5905-5) EOS % (test code = 0.3 % 713-8) BASO % (test code = 0.5 % 706-2) GRAN MAT x10^3(ANC) 7.19 10*3/uL 1.99-6.95 H (test code = 7140388641) IMM GRAN x10^3 (test 0.03 10*3/uL 0-0.06 code = 1192261607) LYMPH x10^3 (test code 1.49 10*3/uL 1.09-3.23 = 731-0) MONO x10^3 (test code 0.66 10*3/uL 0.36-1.02 = 742-7) EOS x10^3 (test code = 0.03 10*3/uL 0.06-0.53 L 711-2) BASO x10^3 (test code 0.05 10*3/uL 0.01-0.09 = 704-7) Lab Interpretation Abnormal (test code = 22152-5) [facility]IVAN [id number] 23:57:00 Test Item Value Reference Range Interpretation Comments TROPONIN I (test <0.012 See_Comment [Automated code = 5094767971) message] The system which generated this result [...] ? Lab Interpretation Normal (test code = 21595-8) [facility] - DRUG SCREEN [id number] 20:14:00 Test Item Value Reference Range Interpretation Comments BENZO U (test code = Presumptive Positive Negative A 8500479669) OLEGARIO U (test code = Negative Negative 3226340380) AMPHET (test code = Negative Negative 7361559863) THC (test code = Negative Negative 0830299405) METHADONE (test code = Negative Negative 3290547531) Meth U (test code = Negative Negative 0464764038) OPIATES (test code = Negative Negative 7902772365) Cocaine Metabolite (test Negative Negative code = 9493430142) PROPOXY (test code = Negative Negative 3061415039) Tric U (test code = Negative Negative 7533123069) PCP (test code = Negative Negative 5257503083) OXYCOD (test code = Negative Negative 0150079817) DAQUAN (test code = DAQUAN) Urine Drug [...] testing). Lab Interpretation (test Abnormal code = 91047-9) [facility] 1 [id number] 19:18:48 Left 8th through 10th rib fractures. [...] left lateral 8th through 10th rib fractures.. [facility], Radiant Results Inft User- 07/02/2019 1:19 PM [...] 10th rib fractures.Preliminary Report Dictated by Resident: Kole HerringI, Wolf Caio, MD., have reviewed this study and agree with the abovereport.[facility] CenterTroponin [id number] 19:12:00 Test Item Value Reference Range Interpretation Comments TROPONIN I (test <0.012 See_Comment [Automated code = 4528955007) message] The system which generated this result [...] ? Lab Interpretation Normal (test code = 81345-9) [facility]eraPTT2020-02-15 19:12:00 Test Item Value Reference Range Interpretation Comments APTT Patient (test See_Comment [Automat ed code = 3173-2) message] The system which generated this result transmitted reference range : 23 - 38 Seconds . The reference range was not used to interpr et this result as normal/abnormal . DAQUAN (test code = DAQUAN) The [facility] patient population mean normal value for aPTT is 30 seconds. Lab Interpretation Normal (test code = 77549-4) [facility] CenterProthrombin Time (PT) / [id number] 19:10:00 Test Item Value Reference Range Interpretation [...] tions. Lab Interpretation (test Normal code = 21276-0) [facility] CenterN-TERMINAL [id number] 19:09:00 Test Item Value Reference Range Interpretation Comments NT-proBNP (test code 12 pg/mL See_Comment [Autom ated = 9910749527) message] The system which generated this result transmitted reference range : <=125. The reference range was not used to interpret this result as normal/abnormal . DAQUAN (test code = DAQUAN) Biotin has been reported to cause a negative bias, interpret results relative to patient's use of biotin. Lab Interpretation Normal (test code = 48537-8) [facility] CenterETHANOL2020-02-15 19:01:00 Test Item Value Reference Range Interpretation Comments ALCOHOL (test code = 277 mg/dL 0877807266) DAQUAN (test code = DAQUAN) <10 [id number] Toxic>100 Depression of LONGITUDINAL FLOAT OPERATOR>400 Fatalities Reported [facility]2020-02-15 19:00:00 Test Item Value Reference Range Interpretation Comments MAGNESIUM (test code = 9842207697) 2.2 mg/dL 1.7-2.4 Lab Interpretation (test code = Normal 79265-0) [facility] (NA, K, CL, CO2, GLUCOSE, BUN, CREATININE, CA)2019-07-02 19:00:00 Test Item Value Reference Range Interpretation Comments NA (test code = 143 mmol/L 135-145 2142092391) K (test code = 4.5 mmol/L 3.5-5 6399362322) CL (test code = 100 mmol/L 98-108 3171100217) CO2 TOTAL (test code = 25 mmol/L 23-31 2636650221) AGAP (test code = 2-16 H 3645511046) BUN (test code = 16 mg/dL 7-23 2806000225) GLUCOSE (test code = 121 mg/dL 70-110 H 7665369241) CREATININE (test code = 0.69 mg/dL 0.6-1.25 9945996682) CALCIUM (test code = 8.6 mg/dL 8.6-10.6 2488454144) eGFR Calculation mL/min/1.73m2 (Non-) (test code = 8101603903) eGFR Calculation mL/min/1.73m2 () (test code = 6344126283) DAQUAN (test code = DAQUAN) Association of [...] tests). Lab Interpretation Abnormal (test code = 45153-5) [facility] (ALB, T.PRO, BILI T, BU/BC, ALT, AST, ALK PHOS)2019-07-02 19:00:00 Test Item Value Reference Range Interpretation Comments TOTAL BILI (test code = 4604081504) 0.9 mg/dL 0.1-1.1 BILI UNCON (test code = 9039489516) 0.5 mg/dL 0.1-1.1 BILI CONJ (test code = 2887999833) 0.0 mg/dL 0-0.3 T PROTEIN (test code = 4990646975) 8.3 g/dL 6.3-8.2 H ALBUMIN (test code = 9762354312) 4.9 g/dL 3.5-5 ALK PHOS (test code = 8314774785) 93 U/L 34-122 ALTv (test code = 1742-6) 32 U/L 5-50 AST(SGOT) (test code = 8218671803) 57 U/L 13-40 H Lab Interpretation (test code = Abnormal 72216-5) [facility] CenterLipase [id number] 19:00:00 Test Item Value Reference Range Interpretation Comments LIPASE (test code = 7589018022) 274 U/L 0-220 H Lab Interpretation (test code = Abnormal 25296-9) [facility] WITH [id number] 18:47:00 Test Item Value Reference Range Interpretation Comments WBC (test code = See_Comment [Automated 7390-2) message] The sy stem which generated this result transmitted reference range : 4.20 - 10.70 10*3/?L. The reference range was not used to interpret this result as normal/abnormal . RBC (test code = See_Comment H [Automated 930-8) message] The sy stem which generated this [...] RDW-SD (test code = 40.3 fL 38.5-51.6 75154-7) RDW-CV (test code = 14.0 % 12.1-15.4 788-0) PLT (test code = See_Comment [Automated 777-3) message] The sy stem which generated this result transmitted reference range : 150 - 328 10*3/ ?L. The reference r susan was not used to interpret this result as normal/abnormal . MPV (test code = 9.7 fL 9.8-13 L 26746-9) NRBC/100 WBC (test See_Comment [Automat ed code = 6496404149) message] The system which generated this result transmitted reference range : 0.0 - 10.0 /100 WBCs. The refer ence range was not u sed to interpret th is result as normal/abnormal . NRBC x10^3 (test code <0.01 See_Comment [Auto mated = 8441611671) message] The s ystem which generated this result transmitted reference range : 10*3/?L. The reference range was not used to interpret this result as normal/abnormal . GRAN MAT (NEUT) % 61.6 % (test code = 770-8) IMM GRAN % (test code 0.30 % = 2858450233) LYMPH % (test code = 30.7 % 736-9) MONO % (test code = 5.4 % 5905-5) EOS % (test code = 1.3 % 713-8) BASO % (test code = 0.7 % 706-2) GRAN MAT x10^3(ANC) 4.67 10*3/uL 1.99-6.95 (test code = 3937378116) IMM GRAN x10^3 (test <0.03 0-0.06 code = 7206007982) LYMPH x10^3 (test code 2.33 10*3/uL 1.09-3.23 = 731-0) MONO x10^3 (test code 0.41 10*3/uL 0.36-1.02 = 742-7) EOS x10^3 (test code = 0.10 10*3/uL 0.06-0.53 711-2) BASO x10^3 (test code 0.05 10*3/uL 0.01-0.09 = 704-7) Lab Interpretation Abnormal (test code = 49114-8) [facility]"
[2022-03-03] MEDS ORDERED: NA CHLORIDE 0.9% 1,000 ML ONE (18:31)
--- NOTE | 2022-03-03 19:21 | RAD REPORT ---
EXAM DESCRIPTION: CT - Head Brain Wo Cont - 03/03/2022 7:11 pm CLINICAL HISTORY: AMS Headache, drowsiness, alteration of awareness COMPARISON: Head Brain Wo Cont dated 08/12/2019 TECHNIQUE: All CT scans are performed using dose optimization technique as appropriate and may inclu de automated exposure control or mA/KV adjustment according to patient size. FINDINGS: No intracranial hemorrhage, hydrocephalus or extra-axial fluid collection.No areas of brai n edema or evidence of midline shift. The paranasal sinuses and mastoids are clear. The calvarium is intact. IMPRESSION: No acute intracranial abnormality.
--- NOTE | 2022-03-03 19:25 | RAD REPORT ---
EXAM DESCRIPTION: RAD - Chest Single View - 03/03/2022 7:07 pm CLINICAL HISTORY: CHEST PAIN Chest pain. COMPARISON: Chest Single View dated 03/02/2022; Chest Single View dated 12/28/2021; Chest Single View dated 07/22/2019; Chest Single View dated 07/10/2019 FINDINGS: Portable technique limits examination quality. Small oblong opacity is identified in the right lung base, likely representing small area of atelecta sis or aspiration. The lungs are otherwise clear. The heart is normal in size. No displaced fractures .
[2022-03-03] MEDS ORDERED: LORazepam 2 MG/ML VIAL ONE (20:07)
[2022-03-03 20:20] LABS: Absolute Lymphocytes (CBC) 1.7 K/uL (0.7-4.9); Hematocrit 44.5 % (39.6-49.0); Lymphocytes % 34.8 % (15.3-44.8); MCV 84.5 fL (80-100); MPV 6.6 fL (7.6-11.3); RBC Red Blood Cell Count 5.26 M/uL (4.33-5.43)
[2022-03-03 20:36] LABS: Potassium 3.9 mmol/L (3.5-5.1); Troponin High Sensitivity 6.6 pg/mL (<58.9)
--- NOTE | 2022-03-03 21:32 | ER ---
Nurse's Notes [facility] Name: Frank Polo Age: 51 yrs Sex: Male : 1970 Arrival Date: 03/03/2022 Time: 17:55 Bed 30 Private MD: Diagnosis: Alcohol use, unspecified with intoxication Presentation: 03/03 18:12 Chief complaint: EMS states: "patient was found intoxicated and unconscious. we had to em6 do a sternal rub to wake him up. He states he has chest pain 10 out of 10. we started a 20 G right AC. Gave him 200 mL of fluids. no known allergies. Normal vitals and normal sinus rhythm". Coronavirus screen: At this time, the client does not indicate any symptoms associated with coronavirus-19. Ebola Screen: Patient negative for fever greater than or equal to 101.5 degrees Fahrenheit, and additional compatible Ebola Virus Disease symptoms. Initial Sepsis Screen: Does the patient meet any 2 criteria? No. Patient's initial sepsis screen is negative. Does the patient have a suspected source of infection? No. Patient's initial sepsis screen is negative. Risk Assessment: Do you want to hurt yourself or someone else? Patient reports no desire to harm self or others. Onset of symptoms is unknown. 18:12 Method Of Arrival: EMS: [facility] em6 18:12 Acuity: PRANAV 3 em6 Historical: - Allergies: 18:26 NKDA; em6 - Home Meds: 18:26 atorvastatin Oral [Active]; gabapentin 300 mg Oral cap 1 cap 3 times per day [Active]; em6 Remeron 15 mg Oral tab [Active]; - PMHx: 18:26 Alcoholism; Anxiety; Bipolar disorder; PE; em6 - Immunization history:: Adult Immunizations unknown. - Social history:: Smoking status: unknown. Screenin:16 Abuse screen: Denies threats or abuse. Nutritional screening: No deficits noted. em6 Tuberculosis screening: No symptoms or risk factors identified. Fall Risk IV access (20 points). Ambulatory Aid- None/Bed Rest/Nurse Assist (0 pts). Gait- Impaired (20 pts.). Total Riley Fall Scale indicates Low Risk Score (25-44 pts). Fall prevention measures have been instituted. Side Rails Up X 2 Placed close to Nursing Station Frequent Obs/Assesments occuring As available Patient and Family Educated on Fall Prevention Program and strategies. Assessment: 18:17 General: Appears unkempt, Behavior is cooperative, crying, Smells of alcohol. Pain: em6 Complains of pain in chest Pain does not radiate. Pain currently is 10 out of 10 on a pain scale. Quality of pain is described as pressure, Pain began 1 hour ago. Is continuous. Neuro: Level of Consciousness is awake, alert, obeys commands, Oriented to person, place, time, situation, Reports headache frontal area. Cardiovascular: Heart tones present Patient's skin is warm and dry. Rhythm is sinus rhythm. Respiratory: Airway is patent Respiratory effort is even, unlabored, Respiratory pattern is regular, symmetrical, Breath sounds are clear bilaterally. GI: No signs and/or symptoms were reported involving the gastrointestinal system. : No signs and/or symptoms were reported regarding the genitourinary system. EENT: No signs and/or symptoms were reported regarding the EENT system. Derm: No signs and/or symptoms reported regarding the dermatologic system. Musculoskeletal: Circulation, motion, and sensation intact. 19:20 Reassessment: Patient appears in no apparent distress at this time. No changes from em6 previously documented assessment. Patient and/or family updated on plan of care and expected duration. Pain level reassessed. 20:16 Reassessment: Patient appears in no apparent distress at this time. No changes from em6 previously documented assessment. Patient and/or family updated on plan of care and expected duration. Pain level reassessed. 21:06 Reassessment: No changes from previously documented assessment. Patient and/or family em6 updated on plan of care and expected duration. Pain level reassessed. Patient is being aggressive and combative. Called Security to room. Patient pulled both IVs out and states "I want to get the fucken out of here." notified ERP. Told patient that the charge nurse and physician that he could leave if someone sober can pick him up. 21:17 Neuro: Level of Consciousness is awake, alert, obeys commands. 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 Notified provider and charge nurse. Vital Signs: 18:12 BP 127 / 84; Pulse 102; Resp 20; Temp 98.3; Pulse Ox 94% ; Weight 85.73 kg; Height 5 em6 ft. 10 in. (177.80 cm); Pain 10/10; 20:15 BP 110 / 74; Pulse 77; Resp 14; Pulse Ox 97% on 2 lpm NC; em6 21:18 BP 125 / 72; Pulse 78; Resp 16; Pulse Ox 100% ; em6 18:12 Body Mass Index 27.12 (85.73 kg, 177.80 cm) em6 ED Course: 17:55 Patient arrived in ED. bd 17:56 Maria Fernanda Bloom FNP-C is [facility]. kb 17:56 Sluma Donnelly MD is Attending Physician. kb 18:11 Christine Aviles, EDISON is Primary Nurse. em6 18:16 Triage completed. em6 18:25 Arm band placed on. em6 18:26 Patient has correct armband on for positive identification. Placed in gown. Bed in low em6 position. Call light in reach. Side rails up X2. Pulse ox on. NIBP on. Warm blanket given. 18:26 Missed attempt(s): 20 gauge in right antecubital area. Oxygen administration via nasal em6 cannula \\T\\ 2L/min. 19:09 XRAY Chest (1 view) In Process Unspecified. EDMS 19:12 Head Brain Wo Cont In Process Unspecified. EDMS 20:00 Inserted saline lock: 20 gauge in left antecubital area, using aseptic technique. Blood em6 collected. 21:31 No provider procedures requiring assistance completed. IV discontinued, intact, em6 bleeding controlled, No redness/swelling at site. Pressure dressing applied, Patient removed both IVs. pressure dressing applied. bleeding controlled. no redness nor swelling noted on both sites. Administered Medications: 18:48 Drug: NS 0.9% 1000 ml Route: IV; Rate: 1000 ml; Site: right antecubital; ld1 20:30 Follow up: Response: No adverse reaction; IV Status: Completed infusion; IV Intake: em6 1000ml 20:13 Drug: Ativan (LORazepam) 1 mg Route: IVP; Site: left antecubital; em6 21:00 Follow up: Response: No adverse reaction; RASS: Alert and Calm (0) em6 Medication: 21:38 VIS not applicable for this client. em6 Intake: 20:30 IV: 1000ml; Total: 1000ml. em6 Outcome: 21:31 Discharge ordered by MD. gil 21:35 Discharged to home ambulatory, with family, walked out with security to meet family em6 member 21:35 Condition: unchanged 21:35 Discharge instructions given to patient did not want to wait for discharge papers. I explained to him to follow up with primary doctor and to come back to the ER if symptoms don't improve. patient nod with agreement. family member states "we will take care of it" Instructed on discharge instructions, follow up and referral plans. Demonstrated understanding of instructions, follow-up care. 21:38 Patient left the ED. em6 Signatures: Dispatcher [employer] EDMS Maria Fernanda Bloom, [employer]-C [employer]-Glory Gtz Lauren, RN RN ld1 Christine Aviles RN RN em6 Corrections: (The following items were deleted from the chart) 21:18 21:06 Reassessment: Patient is being aggressive and combative. Called Security to room. em6 Patient pulled both IVs out and states "I want to get the fucken out of here." notified ERP. Told patient that the charge nurse and physician that he could leave if someone sober can pick him up. em6
--- NOTE | 2022-03-03 21:32 | EDPHYS ---
Physician Documentation [facility] Name: Frank Polo Age: 51 yrs Sex: Male : 1970 Arrival Date: 03/03/2022 Time: 17:55 Bed 30 Private MD: ED Physician Sulma Donnelly HPI: 03/03 21:05 This 51 yrs old Male presents to ER via EMS with complaints of Chest Pain, Alcohol kb Withdrawal. 21:05 The patient presents to the emergency department after a known overdose, a result of kb recreational substance abuse. Context: Method: the patient has a confirmed or suspected ingestion, of alcohol, Time: just prior to arrival, Extent: the OD/poisoning occurred at at home. Associated signs and symptoms: Pertinent positives: decreased level of consciousness. Severity of symptoms: At their worst the symptoms were moderate in the emergency department the symptoms have improved. The patient has experienced similar episodes in the past. The patient has not recently seen a physician. EMS reports neighbor found pt face down in the yard so they called 911. Pt was unresponsive upon EMS arrival, but awakened with sternal rub. Pt has been awake, alert and oriented since then. Pt reports drinking beer and whiskey. Pt reports right chest pain for 4 days, was seen yesterday for the chest pain and discharged home. Historical: - Allergies: 18:26 NKDA; em6 - Home Meds: 18:26 atorvastatin Oral [Active]; gabapentin 300 mg Oral cap 1 cap 3 times per day [Active]; em6 Remeron 15 mg Oral tab [Active]; - PMHx: 18:26 Alcoholism; Anxiety; Bipolar disorder; PE; em6 - Immunization history:: Adult Immunizations unknown. - Social history:: Smoking status: unknown. ROS: 21:03 Constitutional: Negative for fever, chills, and weight loss. kb 21:03 Cardiovascular: Positive for chest pain, of the anterior aspect of right upper chest. 21:03 All other systems are negative. Exam: 21:03 Constitutional: This is a well developed, well nourished patient who is awake, alert, kb and in no acute distress. Head/Face: Normocephalic, atraumatic. ENT: Moist Mucous membranes Cardiovascular: Regular rate and rhythm with a normal S1 and S2. No gallops, murmurs, or rubs. No pulse deficits. Respiratory: Respirations even and unlabored. No increased work of breathing. Talking in full sentences Abdomen/GI: Soft, non-tender. No distention Skin: Warm, dry with normal turgor. Normal color. MS/ Extremity: Pulses equal, no cyanosis. Neurovascular intact. Full, normal range of motion. Neuro: Awake and alert, GCS 15, oriented to person, place, time, and situation. Moves all extremities. Intoxicated Psych: Awake, alert, with orientation to person, place and time. Behavior, mood, and affect are within normal limits. 22:03 ECG was reviewed by the Attending Physician. kb Vital Signs: 18:12 BP 127 / 84; Pulse 102; Resp 20; Temp 98.3; Pulse Ox 94% ; Weight 85.73 kg; Height 5 em6 ft. 10 in. (177.80 cm); Pain 10/10; 20:15 BP 110 / 74; Pulse 77; Resp 14; Pulse Ox 97% on 2 lpm NC; em6 21:18 BP 125 / 72; Pulse 78; Resp 16; Pulse Ox 100% ; em6 18:12 Body Mass Index 27.12 (85.73 kg, 177.80 cm) em6 MDM: 17:56 Patient medically screened. kb 21:03 Data reviewed: vital signs, nurses notes. Data interpreted: Pulse oximetry: on room air kb is 97 %. Interpretation: normal. Counseling: I had a detailed discussion with the patient and/or guardian regarding: the historical points, exam findings, and any diagnostic results supporting the discharge/admit diagnosis, lab results, radiology results, the need for outpatient follow up, a family practitioner, to return to the emergency department if symptoms worsen or persist or if there are any questions or concerns that arise at home. ED course: Pt pulled out his IV and is demanding to be discharged. Pt educated that he must have a sober adult pick him up in order to leave the facility.. 21:31 ED course: Pt had someone come and pick him up. Ambulated out of ED with steady gait. kb 03/03 18: Order name: Basic Metabolic Panel; Complete Time: 20:38 kb 03/03 18: Order name: CBC with Diff; Complete Time: 20:23 kb 03/03 18: Order name: Troponin HS; Complete Time: 20:38 kb 03/03 18:28 Order name: XRAY Chest (1 view); Complete Time: 19:33 kb 03/03 18:28 Order name: ETOH Level; Complete Time: 20:38 kb 03/03 18:28 Order name: EKG; Complete Time: 18:29 kb 03/03 18:28 Order name: Cardiac monitoring; Complete Time: 18:29 kb 03/03 18:28 Order name: EKG - Nurse/Tech; Complete Time: 20:04 kb 03/03 18:28 Order name: IV Saline Lock; Complete Time: 18:29 kb 03/03 18:54 Order name: Head Brain Wo Cont; Complete Time: 19:33 EDMS 03/03 18:28 Order name: Labs collected and sent; Complete Time: 20:04 kb 03/03 18:28 Order name: O2 Per Protocol; Complete Time: 18:29 kb 03/03 18:28 Order name: O2 Sat Monitoring; Complete Time: 18:29 kb EC:03 Rate is 84 beats/min. Rhythm is regular. QRS [place] is Normal. WI interval is normal at kb 166 msec. QRS interval is normal at 92 msec. QT interval is normal at 446 msec. Administered Medications: 18:48 Drug: NS 0.9% 1000 ml Route: IV; Rate: 1000 ml; Site: right antecubital; ld1 20:30 Follow up: Response: No adverse reaction; IV Status: Completed infusion; IV Intake: em6 1000ml 20:13 Drug: Ativan (LORazepam) 1 mg Route: IVP; Site: left antecubital; em6 21:00 Follow up: Response: No adverse reaction; RASS: Alert and Calm (0) em6 Disposition Summary: 03/03/22 21:31 Discharge Ordered Location: Home kb Condition: Stable kb Diagnosis - Alcohol use, unspecified with intoxication kb Followup: kb - With: Emergency Department - When: As needed - Reason: Worsening of condition Followup: kb - With: Private Physician - When: 2 - 3 days - Reason: Recheck today's complaints, Continuance of care, Re-evaluation by your physician Discharge Instructions: - Discharge Summary Sheet kb - Alcohol Intoxication, [id number] kb Forms: - Medication Reconciliation Form kb - Thank You Letter kb - Antibiotic Education kb - Prescription Opioid Use kb Addendum: 03/06/2022 03:44 STAFF ATTESTATION STATEMENT: I was immediately available onsite in the emergency s d2 department for consultation in the care of this patient. I did not see or examine this patient. Sulma Donnelly MD. Signatures: Dispatcher [employer] EDMS Maria Fernanda Bloom, GINNING OPERATOR-C GINNING OPERATOR-Miranda Humphreys, RN RN ld1 Sulma Donnelly MD MD sd2 Christine Aviles RN RN em6 Corrections: (The following items were deleted from the chart) 03/03 18:54 18:34 CT-HEAD/BRAIN W/O CONTRAST ordered. EDMS EDMS
[2022-03-03 22:28] VITALS: TEMP 98.3
[2022-03-03 22:31] VITALS: BP 125/72; O2SAT 100
--- NOTE | 2022-03-04 14:03 | EKG ---
Test Date: 2022-03-03 Test Time: 18:56:48 Skilled Nursing Facility Counselor: MEASUREMENT RESULTS: Intervals: Rate: 84 MS: 166 QRSD: 92 QT: 378 QTc: 446 [place]: P: 12 MS: 166 QRS: 59 T: 41 INTERPRETIVE STATEMENTS: Normal sinus rhythm Septal infarct, age undetermined Abnormal ECG Compared to ECG 03/02/2022 10:18:03 Sinus tachycardia no longer present Myocardial infarct finding still present Electronically Signed On 03-04-22 14:01:02 CDT by Stan Salmeron
== END 2022-03-03 21:38 | disposition home or self-care (01) ==
LOC: ER 17:42
DX: F10.229 Alcohol dependence with intoxication, unspecified (principal); F41.9 Anxiety disorder, unspecified; F31.9 Bipolar disorder, unspecified
CPT/HCPCS: 96361; 93005; 85025; 80048; 36415; 80320; 84484; 70450; 71045; 96374; 99285; J7030

== ENCOUNTER 2022-03-04 21:06 | Emergency (ER) | payer OTHER ==
--- OUTSIDE RECORDS SUMMARY | 2022-03-04 21:13 | XMS REPORT | Continuity of Care Document ---
:1970 Author Organization [facility] t Address [address] [place] [address] Dr. Valera [address] [place] [id number] Care Team Providers Name Role Phone Asked, No Pcp Primary Care Physician Unavailable Indra Moura Attending Clinician Unavailable Fernie Pierce Attending Clinician Unavailable Blanquita Loja Attending Clinician Unavailable Debbie Devine Attending Clinician Unavailable Avtar MUÑOZ Attending Clinician Unavailable Avtar Pierce Attending Clinician Melchor Sanches MD Attending Clinician Dianne Morris MDHDennis Attending Clinician DIANNE MORRISHDennis Attending Clinician Unavailable Doctor Unassigned, [place] Attending Clinician Unavailable Anselmo Zuniga DO Attending [...] Effective Date Expiration Date Umm jauregui [facility] [id number] 2021 00:00:00 MEDICARE PART A [id number] 2017 \\T\\ B 00:00:00 [employer] [id number] 2021 MEDICARE ADVANTAGE 00:00:00 Problems Condition Condition [...] 2-16 it y of on on 00:00: [place] [facility] Atypical Atypical Disease Active Unive rs chest pain chest pain 2-16 it y of 00:00: [place] 00 [facility] Alcohol Alcohol Disease Active Univers withdrawal withdrawal 2-15 it y of 00:00: [place] 00 [facility] 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 (myocardia 2-31 it y of l l 00:00: [place] infarction infarction 00 Me dical ) ) Branch Obesity Obesity Disease Active 2018-05 Univers (BMI (BMI 2-31 ity of 30-39.9) 30-39.9) 00:00: [place] [facility] 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 [...] Univers abuse abuse 2-17 ity of 00:00: [place] 00 Medical Branch 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 2-17 ity of 00:00: [place] [facility] Anxiety Anxiety Disease Active Univers disorder disorder 2-17 ity of 00:00: [facility] Depression Depression Disease Recurre Univers nce 2-17 ity of 00:00: [place] [facility] Acute Acute Disease Active Univers respirator respirator 2-17 it y of y failure [place] failure 00:[place] [facility] Tobacco Tobacco Disease Active Univers abuse abuse 2-17 ity of disorder disorder 00:00: [place] [facility] Suicidal Suicidal Disease Active Unive rs ideation ideation - ity of 00:00: [place] [facility] Allergies, Adverse Reactions, Alerts Allergy Allergy Status Severity Reaction(s) Onset Inactive Treating Comm ents Source Name Type Date Date Clinician NO KNOWN Drug Active [facility] ALLERGIE Class ity of S [facility] [place] Social History Social Habit Start Date Stop Date Quantity Comments Source History of Chews Tobacco [place] of tobacco use [facility] [place] Exposure to 2021-11-28 2021-12-08 Not sure [facility] SARS-CoV-2 00:00:00 21:20:00 [facility] (event) [place] Tobacco use and 2019-06-01 2019-06-01 User of smokeless Un iversity of exposure 00:00:00 00:00:00 tobacco [facility] [place] Alcohol intake 2015-10-18 2015-10-[address] [facility] 00:00:00 00:00:00 of alcohol (finding) Alcohol Comment 2015-10-18 2015-10-18 case a day some [facility] 00:00:00 00:00:00 days Sex Ass[birth year] At [birth year] [facility] 00:00:00 00:00:00 Smoking Status Start Date Stop Date Source Ex-smoker 2019-06-01 00:00:00 2019-06-01 00:00:00 [facility] Smokes tobacco daily 2015-10-18 00:00:00 University Medical [...] as mg 00 :00 dose, [place] [facility] [place] [facility] 12/08/21 at 2300, Routine atorvastati Yes [...] by ity of tablet 00:00: mouth at [place] [address] bedtime. Medical Branch lamoTRIgine 2020-0 Yes 100mg Take 100 U nivers 100 mg 9-27 mg by ity of tablet 00:00: mouth at [place] [address] bedtime. Medical Branch lamoTRIgine 2020-0 Yes 100mg Take 100 U nivers 100 mg 9-27 mg by ity of tablet 00:00: mouth at [place] 00 bedtime. Medical Branch lamoTRIgine 2020-0 Yes 100mg Take 100 U nivers 100 mg 9-27 mg by ity of tablet 00:00: mouth at [place] [address] bedtime. Medical Branch lamoTRIgine 2020-0 Yes 100mg Take 100 U nivers 100 mg 9-27 mg by ity of tablet 00:00: mouth at [place] [address] bedtime. Medical Branch lamoTRIgine 2020-0 Yes 100mg [...] Branch daily. foLIC acid 2020-0 2020- No [id number] 1mg Take 1 Univers 1 mg tablet 2-18 03-20 tablet by it y of 00:00: 04:59 mouth [place] 00 :00 daily for Medical 30 days. Branch thiamine 2020-0 2020- No [id number] 100mg Take 1 Univers 100 mg 2-18 03-20 tablet by ity of tablet 00:00: 04:59 mouth [place] 00 :00 daily for Medical 30 days. Branch foLIC acid 2020-0 2020- No [id number] 1mg Take 1 Univers 1 mg tablet 2-18 03-20 tablet by it y of 00:00: 04:59 mouth [place] 00 :00 daily for Medical 30 days. Branch thiamine 2019-0 2020- No [id number] 100mg Take 1 Univers 100 mg 2-18 03-20 tablet by ity of tablet 00:00: 04:59 mouth [place] 00 :00 daily for Medical 30 days. [place] foLIC acid 2020-0 2020- No [id number] 1mg Take 1 Univers 1 mg tablet 2-18 03-20 tablet by it y of 00:00: 04:59 mouth [place] 00 :00 daily for Medical 30 days. [place] thiamine 2019-0 2020- No [id number] 100mg Take 1 Univers 100 mg 2-18 03-20 tablet by ity of tablet 00:00: 04:59 mouth [place] 00 :00 daily for Medical 30 days. [place] foLIC acid 2019-0 2020- No [id number] 1mg Take 1 Univers 1 mg tablet 2-18 03-20 tablet by it y of 00:00: 04:59 mouth [place] 00 :00 daily for Medical 30 days. [place] thiamine 2019-0 2020- No [id number] 100mg Take 1 Univers 100 mg 2-18 03-20 tablet by ity of tablet 00:00: 04:59 mouth [place] 00 :00 daily for Medical 30 days. [place] foLIC acid 2019-0 2020- No [id number] 1mg Take 1 Univers 1 mg tablet 2-18 03-20 tablet by it y of 00:00: 04:59 mouth [place] 00 :00 daily for Medical 30 days. [place] thiamine 2019-0 2020- No [id number] 100mg Take 1 Univers 100 mg 2-18 03-20 tablet by ity of tablet 00:00: 04:59 mouth [place] 00 :00 daily for Medical 30 days. [place] foLIC acid 2019-0 2020- No [id number] 1mg Take 1 Univers 1 mg tablet 2-18 03-20 tablet by it y of 00:00: 04:59 mouth [place] 00 :00 daily for Medical 30 days. [place] thiamine 2019-0 2020- No [id number] 100mg Take 1 Univers 100 mg 2-18 03-20 tablet by ity of tablet 00:00: 04:59 mouth [place] 00 :00 daily for Medical 30 days. [place] QUEtiapine 0 2020- No 300mg Take 300 U nivers (SEROQUEL) 2-17 02-17 mg by ity of 300 mg 22:43: 00:00 mouth [place] tablet 15 :00 every Medical evening. [place] hydralAZINE 2019-0 Yes 10mg 10 mg, Univ ers (APRESOLINE 2-17 Intravenou it y of ) injection 22:39: s, PRN - [place] 10 mg 29 SEE Medical INSTRUCTIO Branch NS, Starting Thu07/04/19 at 1639, Until Discontinu ed, Routine, Hypertensi ve emergency, Hypertensi on, Q4h for SBP>160 or DBP>100 oxazepam 2019-0 2020- No 15mg 15 mg, Univer s (SERAX) 17 02-18 Oral, ity of capsule 15 20:00: 13:59 Q12H, 2 [place] as mg 00 :00 doses, Medical First dose Branch on Thu07/04/19 at 1400, Last dose on Thu07/04/19 at 2000, Routine morpHINE 2019-0 Yes 2mg 2 mg, Slow Uni vers injection 2 -17 IV Push, ity of mg 18:59: Q4HPRN, [place] 52 Starting Medical [facility] Branch 07/04/19 at 1259, Until Discontinu ed, Routine, Pain (scale 7-10) lisinopril 2019-0 Yes 10mg 10 mg, Unive rs (PRINIVIL,Z 2-17 Oral, ity of ESTRIL) 18:30: DAILY, [place] tablet 10 00 First dose Medi johnson mg on [facility] Branch 07/04/19 at 1230, Until Discontinu ed, Routine LORazepam 1 2019-0 Yes [id number] 1mg Take 1 Univers mg tablet 2-17 tablet by ity o f 00:00: mouth 3 [place] 00 (three) Medical times Branch daily as needed for Anxiety or Agitation. traMADol 50 2020-0 Yes [id number] 50mg Take 1 Univers mg tablet 2-17 [id number] tablet by ity of 00:00: mouth [place] 00 every 6 Medical (six) Branch hours as needed for Pain (scale 4-6). LORazepam 1 2020-0 Yes [id number] 1mg Take 1 Univers mg tablet 2-17 tablet by ity o f 00:00: mouth 3 [place] 00 (three) Medical times Branch daily as needed for Anxiety or Agitation. traMADol 50 2020-0 Yes [id number] 50mg Take 1 Univers mg tablet 2-17 [id number] tablet by ity of 00:00: mouth [place] 00 every 6 Medical (six) Branch hours as needed for Pain (scale 4-6). LORazepam 1 2020-0 Yes [id number] 1mg Take 1 Univers mg tablet 2-17 tablet by ity o f 00:00: mouth 3 [place] 00 (three) Medical times Branch daily as needed for Anxiety or Agitation. traMADol 50 2020-0 Yes [id number] 50mg Take 1 Univers mg tablet 2-17 [id number] tablet by ity of 00:00: mouth [place] 00 every 6 Medical (six) Branch hours as needed for Pain (scale 4-6). LORazepam 1 2020-0 Yes [id number] 1mg Take 1 Univers mg tablet 2-17 tablet by ity o f 00:00: mouth 3 [place] 00 (three) Medical times Branch daily as needed for Anxiety or Agitation. traMADol 50 2020-0 Yes [id number] 50mg Take 1 Univers mg tablet 2-17 [id number] tablet by ity of 00:00: mouth [place] 00 every 6 Medical (six) Branch hours as needed for Pain (scale 4-6). LORazepam 1 2020-0 Yes [id number] 1mg Take 1 Univers mg tablet 2-17 tablet by ity o f 00:00: mouth 3 [place] 00 (three) Medical times Branch daily as needed for Anxiety or Agitation. traMADol 50 2020-0 Yes [id number] 50mg Take 1 Univers mg tablet 2-17 [id number] tablet by ity of 00:00: mouth [place] 00 every 6 Medical (six) Branch hours as needed for Pain (scale 4-6). LORazepam 1 2020-0 Yes [id number] 1mg Take 1 Univers mg tablet 2-17 tablet by ity o f 00:00: mouth 3 [place] 00 (three) Medical times Branch daily as needed for Anxiety or Agitation. traMADol 50 2020-0 Yes [id number] 50mg Take 1 Univers mg tablet 2-17 [id number] tablet by ity of 00:00: mouth [place] 00 every 6 Medical (six) Branch hours as needed for Pain (scale 4-6). LORazepam 1 2020-0 Yes [id number] 1mg Take 1 Univers mg tablet 2-17 tablet by ity o f 00:00: mouth 3 [place] 00 (three) Medical times Branch daily as needed for Anxiety or Agitation. traMADol 50 2020-0 Yes [id number] 50mg Take 1 Univers mg tablet 2-17 [id number] tablet by ity of 00:00: mouth [place] 00 every 6 Medical (six) Branch hours as needed for Pain (scale 4-6). LORazepam 1 2020-0 Yes [id number] 1mg Take 1 Univers mg tablet 2-17 tablet by ity o f 00:00: mouth 3 [place] 00 (three) Medical times Branch daily as needed for Anxiety or Agitation. traMADol 50 2020-0 Yes [id number] 50mg Take 1 Univers mg tablet 2-17 [id number] tablet by ity of 00:00: mouth [place] 00 every 6 Medical (six) Branch hours as needed for Pain (scale 4-6). LORazepam 1 2020-0 Yes [id number] 1mg Take 1 Univers mg tablet 2-17 tablet by ity o f 00:00: mouth 3 [place] 00 (three) Medical times Branch daily as needed for Anxiety or Agitation. traMADol 50 2020-0 Yes [id number] 50mg Take 1 Univers mg tablet 2-17 [id number] tablet by ity of 00:00: mouth [place] 00 every 6 Medical (six) Branch hours as needed for Pain (scale 4-6). LORazepam 1 2020-0 Yes [id number] 1mg Take 1 Univers mg tablet 2-17 tablet by ity o f 00:00: mouth 3 [place] 00 (three) Medical times Branch daily as needed for Anxiety or Agitation. traMADol 50 2020-0 Yes [id number] 50mg Take 1 Univers mg tablet 2-17 [id number] tablet by ity of 00:00: mouth [place] 00 every 6 Medical (six) Branch hours as needed for Pain (scale 4-6). LORazepam 1 2020-0 Yes [id number] 1mg Take 1 Univers mg tablet 2-17 tablet by ity o f 00:00: mouth 3 [place] 00 (three) Medical times Branch daily as needed for Anxiety or Agitation. traMADol 50 2020-0 Yes [id number] 50mg Take 1 Univers mg tablet 2-17 [id number] tablet by ity of 00:00: mouth [place] 00 every 6 Medical (six) Branch hours as needed for Pain (scale 4-6). LORazepam 1 2020-0 Yes [id number] 1mg Take 1 Univers mg tablet 2-17 tablet by ity o f 00:00: mouth 3 [place] 00 (three) Medical times Branch daily as needed for Anxiety or Agitation. traMADol 50 2020-0 Yes [id number] 50mg Take 1 Univers mg tablet 2-17 [id number] tablet by ity of 00:00: mouth [place] 00 every 6 Medical (six) Branch hours as needed for Pain (scale 4-6). LORazepam 1 2019-0 Yes [id number] 1mg Take 1 Univers mg tablet 2-17 tablet by ity o f 00:00: mouth 3 [place] 00 (three) Medical times Branch daily as needed for Anxiety or Agitation. traMADol 50 2019-0 Yes [id number] 50mg Take 1 Univers mg tablet 2-17 [id number] tablet by ity of 00:00: mouth [place] 00 every 6 Medical (six) Branch hours as needed for Pain (scale 4-6). LORazepam 1 2019-0 Yes [id number] 1mg Take 1 Univers mg tablet 2-17 tablet by ity o f 00:00: mouth 3 [place] 00 (three) Medical times Branch daily as needed for Anxiety or Agitation. traMADol 50 2019-0 Yes [id number] 50mg Take 1 Univers mg tablet 2- [id number] tablet by ity of 00:00: mouth [place] 00 every 6 Medical (six) Branch hours as needed for Pain (scale 4-6). LORazepam 1 2019- No [id number] 1mg Take 1 Univers mg tablet 2-03 03- tablet by ity of 00:00: 00:00 mouth 3 [place] 00 :00 (three) Medical times Branch daily as needed for Anxiety or Agitation. traMADol 50 2019- No [id number] 50mg Take 1 Univers mg tablet 2-02-20 [id number] tablet by it y of 00:00: 00:00 mouth [place] 00 :00 every 6 Medical (six) Branch hours as needed for Pain (scale 4-6). LORazepam 1 2019- No [id number] 1mg Take 1 Univers mg tablet 2-17 - tablet by ity of 00:00: 00:00 mouth 3 [place] 00 :00 (three) Medical times Branch daily as needed for Anxiety or Agitation. traMADol 50 0 2020- No [id number] 50mg Take 1 Univers mg tablet 2-17 - [id number] tablet by it y of 00:00: 00:00 mouth [place] 00 :00 every 6 Medical (six) Branch hours as needed for Pain (scale 4-6). lisinopril 2019- No [id number] 20mg Take 1 Univers 20 mg 2-17 -19 tablet by ity of tablet 00:00: 04:59 mouth [place] 00 :00 daily for Medical 30 days. [place] lisinopril 2020-0 2020- No [id number] 20mg Take 1 Univers 20 mg 2-17 03-19 tablet by ity of tablet 00:00: 04:59 mouth [place] 00 :00 daily for Medical 30 days. [place] lisinopril 2020-0 2020- No [id number] 20mg Take 1 Univers 20 mg 2-17 03-19 tablet by ity of tablet 00:00: 04:59 mouth [place] 00 :00 daily for Medical 30 days. [place] lisinopril 2020-0 2020- No [id number] 20mg Take 1 Univers 20 mg 2-17 -19 tablet by ity of tablet 00:00: 04:59 mouth [place] 00 :00 daily for Medical 30 days. [place] lisinopril 2020-0 2020- No [id number] 20mg Take 1 Univers 20 mg 2-17 03-19 tablet by ity of tablet 00:00: 04:59 mouth [place] 00 :00 daily for Medical 30 days. [place] lisinopril 2020-0 2020- No [id number] 20mg Take 1 Univers 20 mg 2-17 -19 tablet by ity of tablet 00:00: 04:59 mouth [place] 00 :00 daily for Medical 30 days. [place] KCL 2020-0 2020- No 40meq 40 mEq, Univers (KLOR-CON 2-16 02-16 Oral, ity of M20) tablet 23:30: 23:12 ONCE, 1 [place] 40 mEq 00 :00 dose, [facility] 07/03/19 at Branch 1730, Routine enoxaparin 2020-0 Yes 40mg 40 mg, Unive rs (LOVENOX) 2-16 Subcutaneo ity of injection 15:00: us, DAILY, [place] 40 mg 00 First dose Medical on [facility] 07/03/19 at 0900, Until Discontinu ed, Routine thiamine 2020-0 Yes 100mg 100 mg, Unive rs (VITAMIN 2-16 Oral, ity of B1) tablet 15:00: DAILY, [place] 100 mg 00 First dose Medical on [facility] 07/03/19 at 0900, Until Discontinu ed, Routine thiamine 2020-0 Yes IV Univers (VITAMIN 2-16 Infusion, ity of B1) 100 mg, 15:00: at 125 [place] foLIC acid 00 mL/hr, Medical (FOLATE) 1 DAILY, Branch mg, First dose multivitami on [facility] adult 07/03/19 at (INFUVITE 0900, ADULT) Until 3,300 unit- Discontinu 150 mcg/10 ed, 1,000 mL 10 mL in mL NaCl 0.45% (1/2NS) IV Solution aspirin 2020-0 Yes 81mg 81 mg, Univers chewable 2-16 Oral, ity of tablet 81 15:00: DAILY, [place] mg 00 First dose Medical on [facility] 07/03/19 at 0900, Until Discontinu ed, Routine foLIC acid 2020-0 Yes 1mg 1 mg, Univer s (FOLATE) 2-16 Oral, ity of tablet 1 mg 15:00: DAILY, [place] 00 First dose Medical on [facility] 07/03/19 at 0900, Until Discontinu ed, Routine LORazepam 2020-0 Yes 1mg 1 mg, Slow Un luis alfredo (ATIVAN) 2-16 IV Push, ity of injection 1 03:05: Q4HPRN, [place] as mg 01 Starting Medical [facility] 07/02/19 at 2105, Until Discontinu ed, Routine, Anxiety, Agitation, Sedation mirtazapine 2020-0 Yes 30mg 30 mg, Univ ers (REMERON) 2-16 Oral, QHS, ity of tablet 30 03:00: First dose [place] mg 00 on [facility] 07/02/19 at Branch 2100, Until Discontinu ed, Routine atorvastati 2020-0 Yes 40mg 40 mg, Univ ers n (LIPITOR) 2-16 Oral, QHS, it y of tablet 40 03:00: First dose [place] mg 00 on [facility] 07/02/19 at Branch 2100, Until Discontinu ed, Routine metoprolol 2020-0 Yes 50mg 50 mg, Unive rs tartrate 2-16 Oral, BID, ity o f (LOPRESSOR) 02:00: First dose [place] tablet 50 00 on [facility] 07/02/19 at Branch 2000, Until Discontinu ed, Routine gabapentin 2020-0 Yes 600mg 600 mg, Uni vers (NEURONTIN) 2-16 Oral, TID, it y of capsule 600 02:00: First dose [place] mg 00 on [facility] 07/02/19 at Branch 2000, Until Discontinu ed, [...] dose, Sat Medical 1,000 mg 07/02/19 at [facility] h 1515, IDA LORazepam 2019- 2020- No 1mg 1 mg, Univer s (ATIVAN) 07-02 Oral, ity of tablet 1 mg 21:15: 20:08 ONCE, 1 [place] 00 :00 dose, Sat Medical 07/02/19 at Branch 1515, IDA ondansetron 2019-0 Yes 4mg 4 mg, Slow Univers (ZOFRAN 07-02 IV Push, ity of (PF)) 21:11: Q6HPRN, [place] injection 4 50 Starting Medi johnson mg Sat Branch 07/02/19 at 1511, Until Discontinu ed, Routine, Nausea and Vomiting (N/V) morpHINE 2019-0 2020- No 2mg 2 mg, Slow Un luis alfredo injection 2 07-02 IV Push, ity of mg 21:11: 03:09 Q4HPN, [place] 40 :25 Starting Medical Sat Branch 07/02/19 [...] Medical evening. Branch aspirin 81 2020-0 Yes [id number] 81mg Take 1 U nivers mg chewable 1-01 tablet by ity of tablet 00:00: mouth [place] 00 daily. Medical Branch aspirin 81 2020-0 Yes [id number] 81mg Take 1 U nivers mg chewable 1-01 tablet by ity of tablet 00:00: mouth [place] 00 daily. Medical Branch aspirin 81 2020-0 Yes [id number] 81mg Take 1 U nivers mg chewable 1-01 tablet by ity of tablet 00:00: mouth [place] 00 daily. Medical Branch aspirin 81 2020-0 Yes [id number] 81mg Take 1 U nivers mg chewable 1-01 tablet by ity of tablet 00:00: mouth [place] 00 daily. Medical Branch aspirin 81 2020-0 Yes [id number] 81mg Take 1 U nivers mg chewable 1-01 tablet by ity of tablet 00:00: mouth [place] 00 daily. Medical Branch aspirin 81 2020-0 Yes [id number] 81mg Take 1 U nivers mg chewable 1-01 tablet by ity of tablet 00:00: mouth [place] 00 daily. Medical Branch aspirin 81 2020-0 Yes [id number] 81mg Take 1 U nivers mg chewable 1-01 tablet by ity of tablet 00:00: mouth [place] 00 daily. Medical Branch aspirin 81 2020-0 Yes [id number] 81mg Take 1 U nivers mg chewable 1-01 tablet by ity of tablet 00:00: mouth [place] 00 daily. Medical Branch aspirin 81 2020-0 Yes [id number] 81mg Take 1 U nivers mg chewable 1-01 tablet by ity of tablet 00:00: mouth [place] 00 daily. Medical Branch aspirin 81 2019- No [id number] 81mg Take 1 Univers mg chewable 05-18 tablet by it y of tablet 00:00: 00:00 mouth [place] 00 :00 daily. Medical Branch lisinopril 2019- No [id number] 2.5mg Take 1 Univers 2.5 mg 05-18 tablet by ity of tablet 00:00: 00:00 mouth [place] 00 :00 daily. Medical Branch lisinopril 2019- No [id number] 2.5mg Take 1 Univers 2.5 mg 05-18 tablet by ity of tablet 00:00: 00:00 mouth [place] 00 :00 daily. Medical Branch atorvastati 2018-05 Yes [id number] 40mg Take 1 Univers n 40 mg 2-31 tablet by ity of tablet 00:00: mouth at [place] 00 bedtime. Medical Branch nitroglycer 2018-[id number] 1 Univers in 0.3 mg 2-31 tablet ity of sublingual 00:00: under the [place] tablet 00 tongue Medical every 5 Branch (five) minutes as needed for Chest pain. metoprolol 2018-05 Yes [id number] 50mg Take 1 U nivers tartrate 50 2-31 tablet by ity of mg tablet 00:00: mouth 2 [place] (two) Medical times Branch daily. atorvastati 2018-05 Yes [id number] 40mg Take 1 Univers n 40 mg 2-31 tablet by ity of tablet 00:00: mouth at [place] 00 bedtime. Medical Branch nitroglycer 2018-[id number] 1 Univers in 0.3 mg 2-31 tablet ity of sublingual 00:00: under the [place] tablet 00 tongue Medical every 5 Branch (five) minutes as needed for Chest pain. metoprolol 2018-05 Yes [id number] 50mg Take 1 U nivers tartrate 50 2-31 tablet by ity of mg tablet 00:00: mouth 2 [place] 00 (two) Medical times Branch daily. atorvastati 2018-05 Yes [id number] 40mg Take 1 Univers n 40 mg 2-31 tablet by ity of tablet 00:00: mouth at [place] [address] bedtime. Medical Branch nitroglycer 2018-[id number] 1 Univers in 0.3 mg 2-31 tablet ity of sublingual 00:00: under the [place] tablet 00 tongue Medical every 5 Branch (five) minutes as needed for Chest pain. metoprolol 2018-05 Yes [id number] 50mg Take 1 U nivers tartrate 50 2-31 tablet by ity of mg tablet 00:00: mouth 2 (two) Medical times Branch daily. atorvastati 2018-05 Yes [id number] 40mg Take 1 Univers n 40 mg 2-31 tablet by ity of tablet 00:00: mouth at [place] bedtime. Medical Branch nitroglycer 2018-[id number] 1 Univers in 0.3 mg 2-31 tablet ity of sublingual 00:00: under the [place] tablet 00 tongue Medical every 5 Branch (five) minutes as needed for Chest pain. metoprolol 2018-05 Yes [id number] 50mg Take 1 U nivers tartrate 50 2-31 tablet by ity of mg tablet 00:00: mouth 2 (two) Medical times Branch daily. atorvastati 2018-05 Yes [id number] 40mg Take 1 Univers n 40 mg 2-31 tablet by ity of tablet 00:00: mouth at [place] bedtime. Medical Branch nitroglycer 2018-[id number] 1 Univers in 0.3 mg 2-31 tablet ity of sublingual 00:00: under the [place] tablet 00 tongue Medical every 5 Branch (five) minutes as needed for Chest pain. metoprolol 2018-05 Yes [id number] 50mg Take 1 U nivers tartrate 50 2-31 tablet by ity of mg tablet 00:00: mouth 2 [place] (two) Medical times Branch daily. atorvastati 2018-05 Yes [id number] 40mg Take 1 Univers n 40 mg 2-31 tablet by ity of tablet 00:00: mouth at [place] [address] bedtime. Medical Branch nitroglycer 2018-[id number] 1 Univers in 0.3 mg 2-31 tablet ity of sublingual 00:00: under the [place] tablet 00 tongue Medical every 5 Branch (five) minutes as needed for Chest pain. nitroglycer 2018-[id number] 1 Univers in 0.3 mg 2-31 tablet ity of sublingual 00:00: under the [place] tablet 00 tongue Medical every 5 Branch (five) minutes as needed for Chest pain. oxazepam 15 2018-05 Yes [id number] 15mg Take 1 Univers mg capsule 2-31 capsule by ity of 00:00: mouth [place] 00 every 4 Medical (four) Branch hours as needed for Anxiety. PRN nitroglycer 2018-[id number] 1 Univers in 0.3 mg 2-31 tablet ity of sublingual 00:00: under the [place] tablet 00 tongue Medical every 5 Branch (five) minutes as needed for Chest pain. nitroglycer 2018-[id number] 1 Univers in 0.3 mg 2-31 tablet ity of sublingual 00:00: under the [place] tablet 00 tongue Medical every 5 Branch (five) minutes as needed for Chest pain. metoprolol 2018-05 Yes [id number] 50mg Take 1 U nivers tartrate 50 2-31 tablet by ity of mg tablet 00:00: mouth 00 (two) Medical times Branch daily. nitroglycer 2018-[id number] 1 Univers in 0.3 mg 2-31 tablet ity of sublingual 00:00: under the [place] tablet 00 tongue Medical every 5 Branch (five) minutes as needed for Chest pain. nitroglycer 2018-[id number] 1 Univers in 0.3 mg 2-31 tablet ity of sublingual 00:00: under the [place] tablet 00 tongue Medical every 5 Branch (five) minutes as needed for Chest pain. nitroglycer 2018-[id number] 1 Univers in 0.3 mg 2-31 tablet ity of sublingual 00:00: under the [place] tablet 00 tongue Medical every 5 Branch (five) minutes as needed for Chest pain. nitroglycer 2018-[id number] 1 Univers in 0.3 mg 2-31 tablet ity of sublingual 00:00: under the [place] tablet 00 tongue Medical every 5 Branch (five) minutes as needed for Chest pain. nitroglycer 2018-[id number] 1 Univers in 0.3 mg 2-31 tablet ity of sublingual 00:00: under the [place] tablet 00 tongue Medical every 5 Branch (five) minutes as needed for Chest pain. atorvastati 2018-05 Yes [id number] 40mg Take 1 Univers n 40 mg 2-31 tablet by ity of tablet 00:00: mouth at [place] 00 bedtime. Medical Branch nitroglycer 2018-[id number] 1 Univers in 0.3 mg 2-31 tablet ity of sublingual 00:00: [place] tablet 00 tongue Medical every 5 Branch (five) minutes as needed for Chest pain. oxazepam 2018-05 Yes [id number] 15mg Take 1 Univers mg capsule 2-31 capsule by ity of 00:00: mouth [place] 00 every 4 Medical (four) Branch hours as needed for Anxiety. PRN metoprolol 2018-05 Yes [id number] 50mg Take 1 U nivers tartrate 50 2-31 tablet by ity of mg tablet 00:00: mouth 2 [place] 00 (two) Medical times Branch daily. atorvastati 2018-05 Yes [id number] 40mg Take 1 Univers n 40 mg 2-31 tablet by ity of tablet 00:00: mouth at [place] 00 bedtime. Medical Branch nitroglycer 2018-[id number] 1 Univers in 0.3 mg 2-31 tablet ity of sublingual 00:00: [place] tablet 00 tongue Medical every 5 Branch (five) minutes as needed for Chest pain. oxazepam 2018-05 Yes [id number] 15mg Take 1 Univers mg capsule 2-31 capsule by ity of 00:00: mouth [place] 00 every 4 Medical (four) Branch hours as needed for Anxiety. PRN metoprolol 2018-05 Yes [id number] 50mg Take 1 U nivers tartrate 50 2-31 tablet by ity of mg tablet 00:00: mouth 2 [place] 00 (two) Medical times Branch daily. atorvastati 2018-05 Yes [id number] 40mg Take 1 Univers n 40 mg 2-31 tablet by ity of tablet 00:00: mouth at [place] 00 bedtime. Medical Branch nitroglycer 2018-[id number] 1 Univers in 0.3 mg 2-31 tablet ity of sublingual 00:00: [place] tablet 00 tongue Medical every 5 Branch (five) minutes as needed for Chest pain. metoprolol 2018-05 Yes [id number] 50mg Take 1 U nivers tartrate 50 2-31 tablet by ity of mg tablet 00:00: mouth 2 [place] 00 (two) Medical times Branch daily. nitroglycer 2018-05- No [id number] .3mg Place 1 Univers in 0.3 mg 02-20 tablet ity of sublingual 00:00: 00:00 under the [place] tablet 00 :00 tongue Medical every 5 Branch (five) minutes as needed for Chest pain. nitroglycer 2018-05- No [id number] .3mg Place 1 Univers in 0.3 mg 02-20 tablet ity of sublingual 00:00: 00:00 under the [place] tablet 00 :00 tongue Medical every 5 Branch (five) minutes as needed for Chest pain. atorvastati 2018-05- No [id number] 40mg Take 1 Univers n 40 mg 08-16 tablet by ity of tablet 00:00: 00:00 mouth at [place] 00 :00 bedtime. Medical Branch metoprolol 2018-05- No [id number] 50mg Take 1 Univers tartrate 50 08-16 tablet by it y of mg tablet 00:00: 00:[place] :[place] (two) Medical times Branch daily. oxazepam 15 2018-05 2020- No [id number] 15mg Take 1 Univers mg capsule 07-04 capsule by it y of 00:00: 00:00 mouth [place] 00 :00 every 4 Medical (four) Branch hours as needed for Anxiety. PRN Vital Signs Vital Name Observation Time Observation Value Comments Source Systolic blood 2021-12-09 02:22:00 119 mm[Hg] [facility] [place] Diastolic blood 2021-12-09 02:22:00 81 mm[Hg] Unive [facility] Heart rate 2021-12-09 02:22:00 94 /min [facility] Body temperature 2021-12-09 02:22:00 36.67 [facility] Respiratory rate 2021-12-09 02:22:00 18 /min [facility] Body height 2021-12-09 02:22:00 177.8 cm [facility] Body weight 2021-12-09 02:22:00 79.379 kg [facility] Branch BMI 2021-12-09 02:22:00 25.11 kg/m2 Universi ty of [place] [facility] Oxygen saturation in 2021-12-09 02:22:00 99 /min University of Arterial blood by [facility] johnson Pulse oximetry Branch Systolic blood 2020-02-21 13:56:00 130 mm[Hg] Univer sity of pressure [place] [facility] Diastolic blood 2020-02-21 13:56:00 85 mm[Hg] Unive rsity of pressure [place] [facility] Heart rate 2020-02-21 13:55:00 68 /min [facility]i [facility] [place] [facility] Respiratory rate 2020-02-21 13:55:00 19 /min Univ ersity of [place] [facility] Body height 2020-02-21 13:55:00 177.8 cm [facility]i [facility] [place] [facility] Body weight 2020-02-21 13:55:00 96.117 kg [facility] [place] [facility] BMI 2020-02-21 13:55:00 30.40 kg/m2 Universi ty [facility] [place] [facility] Oxygen saturation in 2020-02-21 13:55:00 98 /min University of Arterial blood by [facility] Pulse oximetry Branch Systolic blood 2019-11-18 14:41:00 147 mm[Hg] Univer sity of pressure [place] [facility] Diastolic blood 2019-11-18 14:41:00 88 mm[Hg] Unive rsity of pressure [place] [facility] Heart rate 2019-11-18 14:41:00 103 /min [facility]i ty [facility] [place] [facility] Body temperature 2019-11-18 14:41:00 37.17 Kaylee Univ ersity [facility] [place] [facility] Respiratory rate 2019-11-18 14:41:00 18 /min Univ ersity of [place] [facility] Body height 2019-11-18 14:41:00 177.8 cm [facility]i [facility] [place] [facility] Body weight 2019-11-18 14:41:00 106.595 kg [facility] [place] [facility] BMI 2019-11-18 14:41:00 33.72 kg/m2 [facility]i ty [facility] [place] [facility] Oxygen saturation in 2019-11-18 14:41:00 98 /min University of Arterial blood by [facility] johnson Pulse oximetry Branch Systolic blood 2019-11-18 14:41:00 147 mm[Hg] Univer sity of pressure [place] [facility] Diastolic blood 2019-11-18 14:41:00 88 mm[Hg] Unive rsity of pressure [place] [facility] Heart rate 2019-11-18 14:41:00 103 /min [facility]i [facility] [place] [facility] Body temperature 2019-11-18 14:41:00 37.17 Kaylee Univ ersity [facility] [place] [facility] Respiratory rate 2019-11-18 14:41:00 18 /min Univ ersity of [place] [facility] Body height 2019-11-18 14:41:00 177.8 cm [facility]i [facility] [place] [facility] Body weight 2019-11-18 14:41:00 106.595 kg [facility] [place] [facility] BMI 2019-11-18 14:41:00 33.72 kg/m2 Universi ty [facility] [place] [facility] Oxygen saturation in 2019-11-18 14:41:00 98 /min University of Arterial blood by [facility] Pulse oximetry Branch Systolic blood 2019-07-10 23:35:00 153 mm[Hg] Univer sity of pressure [place] [facility] Diastolic blood 2019-07-10 23:35:00 83 mm[Hg] Unive rsity of pressure [place] [facility] Heart rate 2019-07-10 23:35:00 90 /min [facility]i ty [facility] [place] [facility] Body temperature 2019-07-10 23:35:00 36.67 Kaylee Univ ersity [facility] [place] [facility] Respiratory rate 2019-07-10 23:35:00 18 /min Univ ersity of [place] [facility] Body height 2019-07-10 23:35:00 177.8 cm Universi ty [facility] [place] [facility] Body weight 2019-07-10 23:35:00 117.935 kg Universi [facility] [place] [facility] BMI 2019-07-10 23:35:00 37.31 kg/m2 Universi ty [facility] [place] [facility] Oxygen saturation in 2019-07-10 23:35:00 96 /min University of Arterial blood by [facility] johnosn Pulse oximetry Branch Systolic blood 2019-07-10 23:35:00 153 mm[Hg] Univer sity of pressure [place] [facility] Diastolic blood 2019-07-10 23:35:00 83 mm[Hg] Unive rsity of pressure [place] [facility] Heart rate 2019-07-10 23:35:00 90 /min Universi ty [facility] [place] [facility] Body temperature 2019-07-10 23:35:00 36.67 Kaylee Univ ersity [facility] [place] [facility] Respiratory rate 2019-07-10 23:35:00 18 /min Univ ersity of [place] [facility] Body height 2019-07-10 23:35:00 177.8 cm [facility]i [facility] [place] [facility] Body weight 2019-07-10 23:35:00 117.935 kg Universi [facility] [place] [facility] BMI 2019-07-10 23:35:00 37.31 kg/m2 Universi ty [facility] [place] [facility] Oxygen saturation in 2019-07-10 23:35:00 96 /min University of Arterial blood by [place] Bravo[place] johnson Pulse oximetry Branch Systolic blood 2019-07-04 21:00:00 158 mm[Hg] Univer sity of pressure [place] [facility] Diastolic blood 2019-07-04 21:00:00 106 mm[Hg] Unive rsity of pressure [place] [facility] Heart rate 2019-07-04 21:00:00 98 /min [facility]i ty [facility] [place] [facility] Body temperature 2019-07-04 21:00:00 36.67 Kaylee [facility] [place] [facility] Respiratory rate 2019-07-04 21:00:00 20 /min Univ ersity [facility] [place] [facility] Oxygen saturation in 2019-07-04 21:00:00 99 /min University of Arterial blood by [place] Bravoavia johnson Pulse oximetry Branch Body height 2019-07-02 21:10:00 177.8 cm [facility]i [facility] [place] [facility] Body weight 2019-07-02 21:10:00 117.935 kg [facility] [place] [facility] BMI 2019-07-02 21:10:00 37.31 kg/m2 [facility] [place] [facility] Systolic blood 2019-07-04 21:00:00 158 mm[Hg] Univer sity of pressure [place] [facility] Diastolic blood 2019-07-04 21:00:00 106 mm[Hg] Unive rsity of pressure [place] [facility] Heart rate 2019-07-04 21:00:00 98 /min [facility]i ty [facility] [place] [facility] Body temperature 2019-07-04 21:00:00 36.67 Kaylee Univ [facility] [place] [facility] Respiratory rate 2019-07-04 21:00:00 20 /min Univ ersity [facility] [place] [facility] Oxygen saturation in 2019-07-04 21:00:00 99 /min University of Arterial blood by [place] Bravoavia johnson Pulse oximetry Branch Body height 2019-07-02 21:10:00 177.8 cm [facility]i [facility] [place] [facility] Body weight 2019-07-02 21:10:00 117.935 kg [facility] [place] [facility] BMI 2019-07-02 21:10:00 37.31 kg/m2 [facility]i ty [facility] [place] [facility] Systolic blood 2019-06-01 19:53:00 130 mm[Hg] Univer sity of pressure [place] [facility] Diastolic blood 2019-06-01 19:53:00 90 mm[Hg] Unive rsity of pressure [facility] Branch Heart rate 2019-06-01 19:53:00 78 /min Universi ty of [facility] Branch Respiratory rate 2019-06-01 19:53:00 19 /min Univ ersity of [facility] Branch Body height 2019-06-01 19:53:00 177.8 cm Universi ty of [place] [facility] [place] Body weight 2019-06-01 19:53:00 122.154 kg [facility]i ty [facility] [place] [facility] BMI 2019-06-01 19:53:00 38.64 kg/m2 Universi ty of [facility] Branch Oxygen saturation in 2019-06-01 19:53:00 97 /min University of Arterial blood by [facility] Pulse oximetry Branch Systolic blood 2019-06-01 19:53:00 130 mm[Hg] Univer sity of pressure [facility] Branch Diastolic blood 2019-06-01 19:53:00 90 mm[Hg] Unive rsity of pressure [place] [facility] [place] Heart rate 2019-06-01 19:53:00 78 /min Universi ty [facility] [place] [facility] Respiratory rate 2019-06-01 19:53:00 19 /min Univ ersity of [facility] Branch Body height 2019-06-01 19:53:00 177.8 cm [facility]i ty [facility] [place] [facility] Body weight 2019-06-01 19:53:00 122.154 kg [facility] [place] [facility] BMI 2019-06-01 19:53:00 38.64 kg/m2 Universi ty of [facility] Branch Oxygen saturation in 2019-06-01 19:53:00 97 /min University of Arterial blood by [facility] Pulse oximetry Branch Procedures Procedure Date / Time Performing Clinician Source Performed XR CHEST 1 VW 2021-12-09 02:40:45 Zaki Galvan [facility] LIPASE 2021-12-09 02:32:00 Zaki Galvan [facility] TROPONIN I 2021-12-09 02:32:00 Zaki Galvan [facility] COMP. METABOLIC PANEL 2021-12-09 02:32:00 Zaki Galvan [facility] ([id number]) Medical Branch CBC WITH DIFF 2021-12-09 02:32:00 Zaki Galvan [facility] PROTHROMBIN TIME / INR 2021-12-09 02:32:00 Zaki Galvan [facility] COVID-19 (ID NOW RAPID 2021-12-09 02:32:00 conraddc [facility] TESTING) Medical Branch CONSENT/REFUSAL FOR 2021-12-09 02:17:21 Doctor Unassigned, No [facility] [place] DIAGNOSIS AND TREATMENT Name Medical Branch EXTERNAL PROVIDER - ADC 2020-02-08 05:01:00 Doctor Unassigned, N o [facility] CARDIOLOGY Name Medical Branch NOTICE OF PRIVACY 2019-11-18 14:36:16 Doctor Unassigned, No Univ [facility] PRACTICES Name Medical Branch CONSENT/REFUSAL FOR 2019-11-18 14:36:00 Doctor Unassigned, No [facility] [place] DIAGNOSIS AND TREATMENT Name Medical Branch NOTICE OF PRIVACY 2019-07-10 23:30:15 Doctor Unassigned, No Univ [facility] PRACTICES Name Medical Branch CONSENT/REFUSAL FOR 2019-07-10 23:29:51 Doctor Unassigned, No Un [facility] [place] DIAGNOSIS AND TREATMENT Name Medical Branch MAGNESIUM 2019-07-04 18:37:00 [facility] BASIC METABOLIC PANEL 2019-07-04 18:37[facility] CL, CO2, Medical Branch GLUCOSE, BUN, CREATININE, CA) MAGNESIUM 2019-07-03 07:55:00 [facility] TROPONIN I 2019-07-03 07:55:00 Geoffrey [facility] BASIC METABOLIC PANEL 2019-07-03 07:55[facility] (NA, K, CL, CO2, Medical Branch GLUCOSE, BUN, CREATININE, CA) CBC WITH DIFFERENTIAL 2019-07-03 07:55:00 Desean Hale [facility] TROPONIN I 2019-07-02 23:18:00 [facility] ADC / LCC - DRUG SCREEN 2019-07-02 19:50:00 Dwight Noel [facility] TRIAGE [facility] XR RIBS 3 VW LEFT 2019-07-02 18:57:39 Dwight Noel [facility] XR CHEST 1 VW 2019-07-02 18:46:06 Dwight Noel [facility] LIPASE 2019-07-02 18:14:00 Dwight Noel [facility] MAGNESIUM 2019-07-02 18:14:00 Bert Dwight [facility] TROPONIN I 2019-07-02 18:14:00 Bert Dwight [facility] HEPATIC FUNCTION PANEL 2019-07-02 18:14:00 Dwight Noel [facility] ([id number]) (ALB,T.PRO,BILI [facility] T,BU/BC,ALT,AST,ALK PHOS) BASIC METABOLIC PANEL 2019-07-02 18:14:00 Dwight Noel [facility] (NA, K, CL, CO2, Medical Branch GLUCOSE, BUN, CREATININE, CA) ETHANOL 2019-07-02 18:14:00 Dwight Noel [facility] CBC WITH DIFFERENTIAL 2019-07-02 18:14[facility] PROTHROMBIN TIME / INR 2019-07-02 18:14:00 Dwight Noel [facility] ACTIVATED PARTIAL 2019-07-02 18:14:00 [facility] N-TERMINAL PRO-BNP 2019-07-02 18:14:00 Dwight Noel [facility] EKG-12 LEAD 2019-07-02 17:45:17 Dwight Noel [facility] Encounters Start End Encounter Admission Attending Care Care Encounter Source Date/Time Date/Time Type Type Clinicians Facility Department ID 2022-02-28 Outpatient [facility] [id number] [place] 06:34:54 [id number] [facility] 2022-02-27 Outpatient [facility] [id number] [place] 14:33:13 [id number] [facility] 2022-02-13 Outpatient Moura, STLMLC STLMLC Common 16:02:01 Indra [facility] 2022-01-24 Outpatient Moura, STLMLC STLMLC Common 10:37:00 Indra [facility] 2022-01-22 Outpatient Moura, STLMLC STLMLC Common 11:29:01 Indra [facility] 2021-08-16 Outpatient BAYTN SMITATN [id number] [place] 14:59:50 [id number] [facility] 2021-08-14 Outpatient MIAMITN SMITAN [id number] [place] 13:27:24 [id number] [facility] 2021-06-12 Outpatient Moura, STLMLC STLC Common 14:30:57 Indra [facility] 2021-06-12 Outpatient Moura, STLMLC STLMLC Common 14:25:40 Indra [id number] [facility] 2021-06-12 Outpatient Moura, STLMLC STLMLC Common 13:50:26 Indra [id number] [facility] 2021-06-12 Outpatient Moura, STLMLC STLMLC Common 13:25:25 Indra [id number] [facility] 2021-06-12 Outpatient Moura, STLMLC STLMLC Common 13:10:24 Indra [id number] [facility] 2021-06-12 Outpatient Moura, STLMLC STLMLC Common 12:58:21 Indra [id number] [facility] 2021-06-12 Outpatient Moura, STLMLC STLMLC Common 12:47:41 Indra [id number] [facility] 2021-06-12 Outpatient Moura, STLMLC STLMLC Common 12:27:06 Indra [id number] [facility] 2021-06-12 Outpatient Moura, STLMLC STLMLC [id number] Common 12:26:55 Indra [id number] [facility] 2021-06-12 Outpatient Moura, STLMLC STLMLC [id number] Common 12:26:34 Indra [id number] [facility] 2021-06-12 Outpatient Moura, STLMLC STLMLC [id number] Common 12:24:18 Indra [id number] [facility] 2021-06-12 Outpatient Moura, STLMLC STLMLC [id number] Common 12:22:57 Indra [id number] [facility] 2021-06-12 Outpatient Fernie Pierce [facility] [id number] Common 11:41:54 Read [id number] [facility] 2021-06-12 Outpatient Millender, STLMLC STLC [id number] Common 11:36:22 Blanquita [id number] [facility] 2021-06-12 Outpatient Devine, STLMLC STLC [id number] Common 11:18:04 Debbie [id number] [facility] 2021-03-15 Emergency [facility] [id number] Univers 04:29:04 ity [facility] 2016-06-11 Inpatient C [facility] [id number] St. 15:30:00 [facility] 2021-12-08 2021-12-08 Emergency X Avtar MUÑOZ [facility] ERT [id number] Univers 21:17:00 22:10:00 ity [facility] 2021-12-08 2021-12-08 Emergency Avtar Muñoz [facility] [id number] Univers 21:17:00 22:10:00 Caryn TELLO [id number] i ty [facility] [id number] [facility] [phone] [place] [address] Branch 2021-04-26 2021-04-26 Renetta SanchesRUST [id number] Univers 00:00:00 00:00:00 Melchor TELLO [id number] ity [id number] [phone] [place] [id number] [facility] 2020-08-01 2020-08-01 Refill [facility] 1.2.840.114 [id number] Univers 00:00:00 00:00:00 Qiangjun [place] [id number] ity [id number] Profess[place] [phone] [address] 2020-05-14 2020-05-14 Refill [facility] 1.2.840.114 [id number] Univers 00:00:00 00:00:00 Qiangjun [place] [id number] ity [id number] [phone] [address] 2020-02-21 2020-02-21 Office AlexandraRUST 1.2.840.114 [id number] Univers 08:44:09 09:23:32 Visit Dianne [place]ello [id number] ity [id number] [phone] [address] 2020-02-21 2020-02-21 [facility] [id number] Univers 09:00:00 09:00:00 SENDIL ity of [facility] [place] 2020-02-08 2020-02-08 Telephone [facility] [id number] Univers 00:00:00 00:00:00 Juanpablojun [place] [id number] ity [id number] [phone] [address] 2020-02-08 2020-02-08 Orders Doctor MEEKS 1.2.840.114 [id number] Univers 00:00:00 00:00:00 Only Unassigned, DELROY [id number] ity of [place] [facility] [id number] Akbar as [phone] [address] 2020-01-27 2020-01-27 Refill Baltazar, [facility] 1.2.840.114 [id number] Univers 00:00:00 00:00:00 Qiazuleima [place] [id number] ity [id number] [phone] Sc dic[address] 2020-01-10 2020-01-10 Telephone [facility], [facility] [id number] Univers 00:00:00 00:00:00 Qianguzma [place] [id number] ity [id number] [phone] [address] 2019-11-18 2019-11-18 Emergency Zuniga, [facility] [id number] [facility] [place] [facility] 09:42:51 11:00:00 Anselmo [place] [id number] i ty of [id number] [phone] [address] 2019-11-18 2019-11-18 Emergency Zuniga, [facility] [id number] 09:42:51 11:00:00 Anselmo [place] [id number] [place] [id number] [place] [phone] [facility] 2019-10-23 2019-10-23 [facility], [facility] [id number] [facility] [place] [facility] 00:00:00 00:00:00 Duaneurmilauzma [place] [id number] ity of [id number] [phone] Sc dic[address] 2019-10-23 2019-10-23 Telephone [facility], [facility] [id number] 00:00:00 00:00:00 Qiazuleima [place] [id number] [place] [id number] Professio [phone] [address] 2019-09-21 2019-09-21 Telephone [facility], [facility] [id number] [facility] [place] [facility] 00:00:00 00:00:00 Qiazuleima [place] [id number] ity of [id number] [phone] [address] 2019-09-21 2019-09-21 Telephone [facility] 1.2.841.802 [id number] 00:00:00 00:00:00 Qiangjun [place] [id number] [place] [id number] Professio [phone] [address] 2019-08-17 2019-08-17 Telemedici [facility] 1.2.840.114 [id number] [facility] [place] [facility] 14:22:37 15:02:11 ne Visit Melchor Macdonaldton [id number] ity [id number] [phone] [address] 2019-08-17 2019-08-17 [facility] 1.2.840.114 [id number] 14:22:37 15:02:11 ne Visit Melchor Macdonaldton 350.1.13.10 [place] [id number] Professio [phone] [address] 2019-08-17 2019-08-17 Outpatient R [facility] [id number] Univers 14:40:00 14:40:00 MELCHOR ity o f [facility] [place] 2019-07-27 2019-07-27 [facility] [id number] [facility] [place] [facility] 00:00:00 00:00:00 Melchor Macdonaldton [id number] ity of [id number] [phone] [address] 2019-07-27 2019-07-27 [facility] [id number] 00:00:00 00:00:00 Qiangjun [place] [id number] [place] [id number] Professio [phone] [address] 2019-07-10 2019-07-10 Emergency Zuniga, [facility] [id number] [facility] [place] [facility] 17:33:57 18:51:00 Anselmo Tello [id number] i ty of [id number] [phone] [address] 2019-07-10 2019-07-10 Emergency Zuniga, [facility] [id number] 17:33:57 18:51:00 Anselmo Tello 350.1.13.10 [place] [id number] [place] [phone] [facility] 2019-07-10 2019-07-10 Orders Doctor JEANNA 1.2.840.114 [id number] Univers 00:00:00 00:00:00 Only Unassigned, DELROY 350.1.13.10 ity of [place] [facility] 4.2.7.2.686 Akbar as [phone] [address] 2019-07-10 2019-07-10 Orders Doctor MEEKS 1.2.840.114 [id number] 00:00:00 00:00:00 Only Unassigned, [place] 350.1.13.10 [place] [facility] [id number] [phone] [facility] 2019-07-08 2019-07-08 Telephone [facility] 1.2.840.114 [id number] [facility] [place] [facility] 00:00:00 00:00:00 Chago [place]ello 350.1.13.10 i ty [id number] [phone] Sc dical [address] 2019-07-08 2019-07-08 Telephone [facility] 1.2.840.114 [id number] 00:00:00 00:00:00 Chago Tello 350.1.13.10 [place] [id number] Professio [phone] [address] 2019-07-05 2019-07-05 Transition Tawana Franco 1.2.840.114 [id number] Univers 00:00:00 00:00:00 of Care Flori Méndez 350.1.13.10 it y of [place] [phone] [facility] 403 Branch 2019-07-05 2019-07-05 Transition Tawana Franco 1.2.840.114 [id number] 00:00:00 00:00:00 of Care Flori Méndez 350.1.13.10 [place] [id number] [id number] [id number] 2019-07-02 2019-07-04 Inpatient X DESEAN HALE [facility] [id number] Univers 11:42:40 18:46:00 ity of [facility] [place] 2019-07-02 2019-07-04 [facility] 1.2.840.1 [id number] Univers 11:42:40 18:46:00 Encounter Desean Hale [id number] ity of [id number] [phone] [facility] [address] [place] 2019-07-02 2019-07-04 [facility] Jaspreet Noelnell [facility] 1.2.840.1 [id number] 11:42:40 18:46:00 Encounter Desean Hale [id number] [place] [id number] [place] [phone] [facility] 2019-06-13 2019-06-13 [facility] 1.2.840.114 [id number] Univers 00:00:00 00:00:00 Chago Tello 350.1.13.10 i ty of [place]2.[place].2.[place] Profess[place] [phone] Sc dical [address] 2019-06-13 2019-06-13 [facility]phone [facility] [id number] 00:00:00 00:00:00 Chago Tello 350.1.13.10 [place] 4.2.7.2.686 Professio [phone] [address] 2019-06-01 2019-06-01 Office [facility] 1.2.840.114 [id number] Univers 13:31:45 14:23:22 Visit Melchor Tello 350.1.13.10 ity of [place] 4.2.7.2.686 Elsie ambriz Professio [phone] Sc dical nal [address] [facility] 2019-06-01 2019-06-01 Office [facility] 1.2.840.114 [id number] 13:31:45 14:23:22 Visit Melchor Tello 350.1.13.10 [place] 4.2.7.2.686 Professio [phone] [address] Results Test Description Test Time Test [...] indications. Lab Interpretation (test code = Normal 19827-1) [facility] METABOLIC PANEL (NA, K, CL, CO2, GLUCOSE, BUN, CREATININE, CA)2019-07-04 19:25:00 Test Item Value Reference Range Interpretation Comments NA (test code = 137 mmol/L 135-145 5792606592) K (test code = 4.1 mmol/L 3.5-5 2903819213) CL (test code = 102 mmol/L 98-108 0123285010) CO2 TOTAL (test code = 27 mmol/L 23-31 4452697646) AGAP (test code = 2-16 8182215639) BUN (test code = 12 mg/dL 7-23 7576968350) GLUCOSE (test code = 103 mg/dL 70-110 6941640540) CREATININE (test code 0.70 mg/dL 0.6-1.25 = 5677787018) CALCIUM (test code = 8.8 mg/dL 8.6-10.6 1212729943) eGFR Calculation mL/min/1.73m2 (Non-) (test code = 4319761899) eGFR Calculation mL/min/1.73m2 () (test code = 0813229481) DAQUAN (test code = DAQUAN) Association of [...] or urine or abnormalities in imaging tests). [facility] 19:24:00 Test Item Value Reference Range Interpretation Comments MAGNESIUM (test code = 3836777290) 2.3 mg/dL 1.7-2.4 Lab Interpretation (test code = Normal 51811-7) [facility] 3 VW [id number] 14:21:01 Left seventh through tenth rib fractures. [...] have reviewed this study and agree withthe abovereport.[facility] 2019-07-03 08:28:00 Test Item Value Reference Range Interpretation Comments TROPONIN I (test <0.012 See_Comment [Automated code = 4591983281) message] The system which generated this result [...] ? Lab Interpretation Normal (test code = 01995-0) [facility] Metabolic Panel (NA, K, CL, CO2, GLUCOSE, BUN, CREATININE, CA)2019-07-03 08:17:00 Test Item Value Reference Range Interpretation Comments NA (test code = 132 mmol/L 135-145 L 8427896888) K (test code = 3.3 mmol/L 3.5-5 L 6697728838) CL (test code = 94 mmol/L 98-108 L 9646288150) CO2 TOTAL (test code = 27 mmol/L 23-31 4626094004) AGAP (test code = 2-16 8755323689) BUN (test code = 18 mg/dL 7-23 5367427976) GLUCOSE (test code = 116 mg/dL 70-110 H 3188109190) CREATININE (test code = 0.68 mg/dL 0.6-1.25 6540583564) CALCIUM (test code = 8.6 mg/dL 8.6-10.6 3361716041) eGFR Calculation mL/min/1.73m2 (Non-) (test code = 7442360962) eGFR Calculation mL/min/1.73m2 () (test code = 1976955750) DAQUAN (test code = DAQUAN) Association of [...] tests). Lab Interpretation Abnormal (test code = 04266-1) [facility]Magnesium [id number] 08:17:00 Test Item Value Reference Range Interpretation Comments MAGNESIUM (test code = 5205870319) 1.7 mg/dL 1.7-2.4 Lab Interpretation (test code = Normal 59882-2) [facility] WITH [id number] 08:04:00 Test Item Value Reference Range Interpretation Comments WBC (test code = See_Comment [Automated 6690-2) message] The sy stem which generated this result transmitted reference range : 4.20 - 10.70 10*3/?L. The reference range was not used to interpret this result as normal/abnormal . RBC (test code = See_Comment [Automated 469-8) message] The sy stem which generated this [...] RDW-SD (test code = 41.0 fL 38.5-51.6 93708-9) RDW-CV (test code = 14.0 % 12.1-15.4 788-0) PLT (test code = See_Comment L [Automated 777-3) message] The sy stem which generated this result transmitted reference range : 150 - 328 10*3/ ?L. The reference r susan was not used to interpret this result as normal/abnormal . MPV (test code = 9.8 fL 9.8-13 53525-7) NRBC/100 WBC (test See_Comment [Automat ed code = 1438636112) message] The system which generated this result transmitted reference range : 0.0 - 10.0 /100 WBCs. The refer ence range was not u sed to interpret th is result as normal/abnormal . NRBC x10^3 (test code <0.01 See_Comment [Auto mated = 2733319023) message] The s ystem which generated this result transmitted reference range : 10*3/?L. The reference range was not used to interpret this result as normal/abnormal . GRAN MAT (NEUT) % 76.1 % (test code = 770-8) IMM GRAN % (test code 0.30 % = 5632762399) LYMPH % (test code = 15.8 % 736-9) MONO % (test code = 7.0 % 5905-5) EOS % (test code = 0.3 % 713-8) BASO % (test code = 0.5 % 706-2) GRAN MAT x10^3(ANC) 7.19 10*3/uL 1.99-6.95 H (test code = 7202693633) IMM GRAN x10^3 (test 0.03 10*3/uL 0-0.06 code = 3631594038) LYMPH x10^3 (test code 1.49 10*3/uL 1.09-3.23 = 731-0) MONO x10^3 (test code 0.66 10*3/uL 0.36-1.02 = 742-7) EOS x10^3 (test code = 0.03 10*3/uL 0.06-0.53 L 711-2) BASO x10^3 (test code 0.05 10*3/uL 0.01-0.09 = 704-7) Lab Interpretation Abnormal (test code = 20888-4) [facility] [id number] 23:57:00 Test Item Value Reference Range Interpretation Comments TROPONIN I (test <0.012 See_Comment [Automated code = 1968507825) message] The system which generated this result [...] ? Lab Interpretation Normal (test code = 05852-2) [facility] - DRUG SCREEN [id number] 20:14:00 Test Item Value Reference Range Interpretation Comments BENZO U (test code = Presumptive Positive Negative A 5754931751) OLEGARIO U (test code = Negative Negative 1299279637) AMPHET (test code = Negative Negative 4893307539) THC (test code = Negative Negative 3415181282) METHADONE (test code = Negative Negative 4307472461) Meth U (test code = Negative Negative 9156676522) OPIATES (test code = Negative Negative 0875430521) Cocaine Metabolite (test Negative Negative code = 1859369885) PROPOXY (test code = Negative Negative 0664632201) Tric U (test code = Negative Negative 9018310638) PCP (test code = Negative Negative 3750585348) OXYCOD (test code = Negative Negative 0954966986) DAQUAN (test code = DAQUAN) Urine Drug [...] testing). Lab Interpretation (test Abnormal code = 23235-8) [facility] 1 [id number] 19:18:48 Left 8th through 10th rib fractures. [...] left lateral 8th through 10th rib fractures.. Memb, Radiant Results Inft User- 07/02/2019 1:19 PM [...] reviewed this study and agree with the abovereport.[facility]Troponin [id number] 19:12:00 Test Item Value Reference Range Interpretation Comments TROPONIN I (test <0.012 See_Comment [Automated code = 9428847292) message] The system which generated this result [...] ? Lab Interpretation Normal (test code = 36002-1) [facility]aPTT2020-02-15 19:12:00 Test Item Value Reference Range Interpretation Comments APTT Patient (test See_Comment [Automat ed code = 3173-2) message] The system which generated this result transmitted reference range : 23 - 38 Seconds . The reference range was not used to interpr et this result as normal/abnormal . DAQUAN (test code = DAQUAN) The [facility] patient population mean normal value for aPTT is 30 seconds. Lab Interpretation Normal (test code = 09404-3) [facility] HospitalProthrombin Time (PT) / [id number] 19:10:00 Test Item Value Reference Range Interpretation [...] tions. Lab Interpretation (test Normal code = 20529-8) [facility] HospitalN-TERMINAL [id number] 19:09:00 Test Item Value Reference Range Interpretation Comments NT-proBNP (test code 12 pg/mL See_Comment [Autom ated = 0437334655) message] The system which generated this result transmitted reference range : <=125. The reference range was not used to interpret this result as normal/abnormal . DAQUAN (test code = DAQUAN) Biotin has been reported to cause a negative bias, interpret results relative to patient's use of biotin. Lab Interpretation Normal (test code = 40887-4) [facility] HospitalETHANOL2020-02-15 19:01:00 Test Item Value Reference Range Interpretation Comments ALCOHOL (test code = 277 mg/dL 9668103676) DAQUAN (test code = DAQUAN) <10 Gemashcl83-109 Toxic>100 Depression of [employer]>400 Fatalities Reported [facility]UM2020-02-15 19:00:00 Test Item Value Reference Range Interpretation Comments MAGNESIUM (test code = 8573932608) 2.2 mg/dL 1.7-2.4 Lab Interpretation (test code = Normal 69624-1) [facility] (NA, K, CL, CO2, GLUCOSE, BUN, CREATININE, CA)2019-07-02 19:00:00 Test Item Value Reference Range Interpretation Comments NA (test code = 143 mmol/L 135-145 8834153925) K (test code = 4.5 mmol/L 3.5-5 8904563164) CL (test code = 100 mmol/L 98-108 4594615614) CO2 TOTAL (test code = 25 mmol/L 23-31 2705712510) AGAP (test code = 2-16 H 1670404015) BUN (test code = 16 mg/dL 7-23 0084228290) GLUCOSE (test code = 121 mg/dL 70-110 H 2677691930) CREATININE (test code = 0.69 mg/dL 0.6-1.25 2018785209) CALCIUM (test code = 8.6 mg/dL 8.6-10.6 8234995212) eGFR Calculation mL/min/1.73m2 (Non-) (test code = 3346341251) eGFR Calculation mL/min/1.73m2 () (test code = 3483772993) DAQUAN (test code = DAQUAN) Association of [...] tests). Lab Interpretation Abnormal (test code = 33471-3) [facility]Hep[facility] Function Panel (ALB, T.PRO, BILI T, BU/BC, ALT, AST, ALK PHOS)2019-07-02 19:00:00 Test Item Value Reference Range Interpretation Comments TOTAL BILI (test code = 3865898982) 0.9 mg/dL 0.1-1.1 BILI UNCON (test code = 7469172211) 0.5 mg/dL 0.1-1.1 BILI CONJ (test code = 8167111580) 0.0 mg/dL 0-0.3 T PROTEIN (test code = 1645591250) 8.3 g/dL 6.3-8.2 H ALBUMIN (test code = 4784747217) 4.9 g/dL 3.5-5 ALK PHOS (test code = 7578665145) 93 U/L 34-122 ALTv (test code = 1742-6) 32 U/L 5-50 AST(SGOT) (test code = 7504727940) 57 U/L 13-40 H Lab Interpretation (test code = Abnormal 45849-8) [facility] HospitalLipase [id number] 19:00:00 Test Item Value Reference Range Interpretation Comments LIPASE (test code = 9257379636) 274 U/L 0-220 H Lab Interpretation (test code = Abnormal 01970-0) [facility] WITH [id number] 18:47:00 Test Item Value Reference Range Interpretation Comments WBC (test code = See_Comment [Automated 2590-2) message] The sy stem which generated this result transmitted reference range : 4.20 - 10.70 10*3/?L. The reference range was not used to interpret this result as normal/abnormal . RBC (test code = See_Comment H [Automated 907-8) message] The sy stem which generated this [...] RDW-SD (test code = 40.3 fL 38.5-51.6 31259-9) RDW-CV (test code = 14.0 % 12.1-15.4 788-0) PLT (test code = See_Comment [Automated 777-3) message] The sy stem which generated this result transmitted reference range : 150 - 328 10*3/ ?L. The reference r susan was not used to interpret this result as normal/abnormal . MPV (test code = 9.7 fL 9.8-13 L 13617-0) NRBC/100 WBC (test See_Comment [Automat ed code = 7460944448) message] The system which generated this result transmitted reference range : 0.0 - 10.0 /100 WBCs. The refer ence range was not u sed to interpret th is result as normal/abnormal . NRBC x10^3 (test code <0.01 See_Comment [Auto mated = 4696954369) message] The s ystem which generated this result transmitted reference range : 10*3/?L. The reference range was not used to interpret this result as normal/abnormal . GRAN MAT (NEUT) % 61.6 % (test code = 770-8) IMM GRAN % (test code 0.30 % = 0463828358) LYMPH % (test code = 30.7 % 736-9) MONO % (test code = 5.4 % 5905-5) EOS % (test code = 1.3 % 713-8) BASO % (test code = 0.7 % 706-2) GRAN MAT x10^3(ANC) 4.67 10*3/uL 1.99-6.95 (test code = 1775572652) IMM GRAN x10^3 (test <0.03 0-0.06 code = 8484679521) LYMPH x10^3 (test code 2.33 10*3/uL 1.09-3.23 = 731-0) MONO x10^3 (test code 0.41 10*3/uL 0.36-1.02 = 742-7) EOS x10^3 (test code = 0.10 10*3/uL 0.06-0.53 711-2) BASO x10^3 (test code 0.05 10*3/uL 0.01-0.09 = 704-7) Lab Interpretation Abnormal (test code = 09823-1) [facility]"
--- NOTE | 2022-03-04 22:00 | EDPHYS ---
Physician Documentation [facility] Name: Frank Polo Age: 51 yrs Sex: Male : 1970 Arrival Date: 03/04/2022 Time: 21:09 Bed 25 Private MD: ED Physician Jani Benavides HPI: 03/04 22:06 This 51 yrs old Male presents to ER via EMS with complaints of Chest Pain. snw 22:06 Onset: The symptoms/episode began/occurred Pt has been binging alcohol. He returns to [facility] ED today for the third day in a row complaining of withdrawals. Pt's ETOH yesterday was over 400mg/dl, + ETOH today. . Associated signs and symptoms: Pertinent positives: chest pain, agitation, shakiness. Modifying factors: The patient symptoms are alleviated by nothing. The patient has experienced similar episodes in the past, multiple times. The patient has been recently seen by a physician: The patient has been recently seen at the [facility] Emergency Department, yesterday, for similar complaints pt ripped IV out yesterday and left ED post security being called twice. Historical: - Allergies: 21:25 NKDA; kb3 - Home Meds: 21:25 atorvastatin Oral [Active]; gabapentin 300 mg Oral cap 1 cap 3 times per day [Active]; kb3 Remeron 15 mg Oral tab [Active]; - PMHx: 21:25 Alcoholism; Anxiety; Bipolar disorder; PE; kb3 - Immunization history:: Adult Immunizations up to date, Client reports receiving the 2nd dose of the Covid vaccine, Last tetanus immunization: up to date. - Social history:: Smoking status: Patient reports use of chewing tobacco. ROS: 22:08 Eyes: Negative for injury, pain, redness, and discharge, ENT: Negative for injury, snw pain, and discharge, Neck: Negative for injury, pain, and swelling. 22:08 Respiratory: Negative for shortness of breath, cough, wheezing, and pleuritic chest pain, Abdomen/GI: Negative for abdominal pain, nausea, vomiting, diarrhea, and constipation, Back: Negative for injury and pain, : Negative for injury, bleeding, discharge, and swelling, MS/Extremity: Negative for injury and deformity, Skin: Negative for injury, rash, and discoloration. 22:08 Constitutional: Positive for body aches, poor PO intake. 22:08 Cardiovascular: Positive for chest pain. 22:08 Neuro: Positive for shakiness. Exam: 22:08 Head/Face: Normocephalic, atraumatic. Eyes: Pupils equal round and reactive to light, snw extra-ocular motions intact. Lids and lashes normal. Conjunctiva and sclera are non-icteric and not injected. Cornea within normal limits. Periorbital areas with no swelling, redness, or edema. ENT: Nares patent. No nasal discharge, no septal abnormalities noted. Tympanic membranes are normal and external auditory canals are clear. Oropharynx with no redness, swelling, or masses, exudates, or evidence of obstruction, uvula midline. Mucous membranes moist. Neck: Trachea midline, no thyromegaly or masses palpated, and no cervical lymphadenopathy. Supple, full range of motion without nuchal rigidity, or vertebral point tenderness. No Meningismus. Chest/axilla: Normal chest wall appearance and motion. Nontender with no deformity. No lesions are appreciated. Cardiovascular: Regular rate and rhythm with a normal S1 and S2. No gallops, murmurs, or rubs. Normal PMI, no JVD. No pulse deficits. Respiratory: Lungs have equal breath sounds bilaterally, clear to auscultation and percussion. No rales, rhonchi or wheezes noted. No increased work of breathing, no retractions or nasal flaring. Abdomen/GI: Soft, non-tender, with normal bowel sounds. No distension or tympany. No guarding or rebound. No evidence of tenderness throughout. Back: No spinal tenderness. No costovertebral tenderness. Full range of motion. MS/ Extremity: Pulses equal, no cyanosis. Neurovascular intact. Full, normal range of motion. 22:08 Constitutional: The patient appears alert, anxious, restless. 22:08 Skin: Appearance: Color: dusky, Temperature: warm, Moisture: normal moisture, abrasion to left márquez. 22:08 Neuro: Orientation: is normal, Mentation: is normal, Memory: is normal. Vital Signs: 21:24 Pulse 92; Resp 18; Pulse Ox 100% ; Weight 86.18 kg; Height 5 ft. 10 in. (177.80 cm); kb3 Pain 10/10; 21:27 BP 130 / 78; kb3 22:02 BP 122 / 84; Pulse 100; Resp 18; Pulse Ox 96% on R/A; em6 21:24 Body Mass Index 27.26 (86.18 kg, 177.80 cm) kb3 MDM: 21:51 Patient medically screened. snw 22:09 Data reviewed: vital signs, nurses notes. Data interpreted: Pulse oximetry: on room air snw is 96 %. Interpretation: acceptable. Counseling: I had a detailed discussion with the patient and/or guardian regarding: the historical points, exam findings, and any diagnostic results supporting the discharge/admit diagnosis, the need for outpatient follow up, for definitive care, to return to the emergency department if symptoms worsen or persist or if there are any questions or concerns that arise at home. Special discussion: Based on the history and exam findings, there is no indication for further emergent testing or inpatient evaluation. I discussed with the patient/guardian the need to see the primary care provider for further evaluation of the symptoms. I discussed with the patient/guardian the need to see the psychiatrist for further evaluation of the symptoms. Administered Medications: 22:03 Drug: Valium (diazepam) 10 mg Route: PO; em6 22:34 Follow up: Response: No adverse reaction em6 Disposition: 22:41 Co-signature as Attending Physician, Jani Benavides MD. rn Disposition Summary: 03/04/22 21:59 Discharge Ordered Location: Home snw Condition: Stable snw Diagnosis - Alcohol abuse snw Followup: snw - With: Emergency Department - When: As needed - Reason: Worsening of condition Followup: snw - With: Private Physician - When: Tomorrow - Reason: Recheck today's complaints, Continuance of care, Re-evaluation by your physician Discharge Instructions: - Discharge Summary Sheet snw - Alcohol Intoxication snw - Alcohol Abuse and Nutrition snw Forms: - Medication Reconciliation Form snw - Thank You Letter snw - Antibiotic Education snw - Prescription Opioid Use snw Prescriptions: - promethazine 25 mg Oral Tablet - take 1 tablet by ORAL route every 6 hours As needed; 10 tablet; Refills: 0, snw Product Selection Permitted - CHLORODIAZEPOXIDE - take 25 milligram by ORAL route every 8 hours; 9 capsule; Refills: 0, Product snw Selection Permitted Signatures: Asia Quinteros FNP-C NUCLEAR RADIOLOGIST-Csnw Jani Benavides MD MD rn Martinez, Erika, RN RN em6 Taryn Duran, RN RN kb3
--- NOTE | 2022-03-04 22:00 | ER ---
Nurse's Notes [facility] [place] Name: Frank Polo Age: 51 yrs Sex: Male : 1970 Arrival Date: 03/04/2022 Time: 21:09 Bed 25 Private MD: Diagnosis: Alcohol abuse Presentation: 03/04 21:24 Chief complaint: Patient states: Pt report mid-sternal CP and alcohol withdrawal that kb3 is unchanged from his last visit. Reports last drink was 6 hrs ago. Coronavirus screen: Vaccine status: Patient reports being unvaccinated. Client denies travel out of the [place] in the last 14 days. Ebola Screen: Patient negative for fever greater than or equal to 101.5 degrees Fahrenheit, and additional compatible Ebola Virus Disease symptoms Patient denies exposure to infectious person. Patient denies travel to an Ebola-affected area in the 21 days before illness onset. No symptoms or risks identified at this time. Initial Sepsis Screen: Does the patient meet any 2 criteria? No. Patient's initial sepsis screen is negative. Does the patient have a suspected source of infection? No. Patient's initial sepsis screen is negative. Risk Assessment: Do you want to hurt yourself or someone else? Patient reports no desire to harm self or others. Onset of symptoms is unknown. 21:24 Method Of Arrival: EMS: [facility] kb3 21:24 Acuity: PRANAV 3 kb3 Triage Assessment: 21:25 General: Appears unkempt, Behavior is agitated, Smells of alcohol. Pain: Complains of kb3 pain in chest Pain does not radiate. Pain currently is 10 out of 10 on a pain scale. Cardiovascular: Reports chest pain, nausea. Historical: - Allergies: 21:25 NKDA; kb3 - Home Meds: 21:25 atorvastatin Oral [Active]; gabapentin 300 mg Oral cap 1 cap 3 times per day [Active]; kb3 Remeron 15 mg Oral tab [Active]; - PMHx: 21:25 Alcoholism; Anxiety; Bipolar disorder; PE; kb3 - Immunization history:: Adult Immunizations up to date, Client reports receiving the 2nd dose of the Covid vaccine, Last tetanus immunization: up to date. - Social history:: Smoking status: Patient reports use of chewing tobacco. Screenin:02 [facility] [place] Withdrawal Assessment for Alcohol, revised (CIWA-Ar): em6 Nausea/Vomitin - Intermittent nausea with dry heaves. Abuse screen: Denies threats or abuse. Nutritional screening: No deficits noted. Tuberculosis screening: No symptoms or risk factors identified. 22:10 Fall Risk Gait- Normal/Bed Rest/Wheelchair (0 pts) Mental Status- Oriented to own em6 ability (0 pts). Total Riley Fall Scale indicates No Risk (0-24 pts). Assessment: 22:01 General: Behavior is cooperative, Smells of alcohol. Pain: Complains of pain in chest em6 Pain does not radiate. Pain currently is 10 out of 10 on a pain scale. Quality of pain is described as pressure, Pain began 2-3 days ago. Neuro: Level of Consciousness is awake, alert, obeys commands, Oriented to person, place, time, situation. Cardiovascular: Rhythm is sinus rhythm. Respiratory: Airway is patent Respiratory effort is even, unlabored, Respiratory pattern is regular, symmetrical. GI: No signs and/or symptoms were reported involving the gastrointestinal system. : No signs and/or symptoms were reported regarding the genitourinary system. EENT: No signs and/or symptoms were reported regarding the EENT system. Derm: No signs and/or symptoms reported regarding the dermatologic system. Musculoskeletal: Circulation, motion, and sensation intact. Range of motion: intact in all extremities. 22:24 Reassessment: called Mr Mathias (phone number with registration) to pick and shovel man mr Marie. No em6 answer. Informed the patient that he can wait in the lobby and call again in a couple minutes. Offered a blanket food and water. Patient declined. Vital Signs: 21:24 Pulse 92; Resp 18; Pulse Ox 100% ; Weight 86.18 kg; Height 5 ft. 10 in. (177.80 cm); kb3 Pain 10/10; 21:27 BP 130 / 78; kb3 22:02 BP 122 / 84; Pulse 100; Resp 18; Pulse Ox 96% on R/A; em6 21:24 Body Mass Index 27.26 (86.18 kg, 177.80 cm) kb3 ED Course: 21:09 Patient arrived in ED. jj6 21:11 [facility]C [facility]. snw 21:11 Jani Benavides MD is Attending Physician. snw 21:25 Triage completed. kb3 21:25 Arm band placed on right wrist. EKG completed in triage. Results shown to MD. kb3 21:53 Christine Aviles, RN is Primary Nurse. em6 22:03 Bed in low position. Call light in reach. Side rails up X2. court recording monitor on. Pulse em6 ox on. NIBP on. Warm blanket given. 22:03 Patient maintains SpO2 saturation greater than 95% on room air. em6 22:33 No provider procedures requiring assistance completed. Patient did not have IV access em6 during this emergency room visit. Administered Medications: 22:03 Drug: Valium (diazepam) 10 mg Route: PO; em6 22:34 Follow up: Response: No adverse reaction em6 Medication: 22:10 VIS not applicable for this client. em6 Outcome: 21:59 Discharge ordered by MD. snw 22:33 Discharged to home ambulatory. em6 22:33 Condition: stable 22:33 Discharge instructions given to patient, Instructed on discharge instructions, follow up and referral plans. medication usage, Demonstrated understanding of instructions, follow-up care, medications, Prescriptions given X 2. 22:34 Patient left the ED. em6 Signatures: Asia Quinteros, LEATHER TOGGLER-C LEATHER TOGGLER-Csnw Sujatha Almonte jj6 Christine Aviles, RN RN em6 Taryn Duran RN RN kb3 Corrections: (The following items were deleted from the chart) 22:10 22:01 General: Behavior is cooperative, em6 em6 22:28 22:24 Reassessment: called Mr Mathias to pick and shovel man mr Marie. No answer. Informed the em6 patient that he can wait in the lobby and call again in a couple minutes. Offered a blanket food and water. Patient declined. em6
[2022-03-04] MEDS ORDERED: DIAZEPAM 5 MG TABLET ONE (22:05)
[2022-03-04 23:56] VITALS: BP 122/84; O2SAT 96
--- NOTE | 2022-03-08 17:01 | EKG ---
Test Date: 2022-03-04 Test Time: 21:34:55 Circle Shear Operator: BOUBACAR MEASUREMENT RESULTS: Intervals: Rate: 89 DE: 150 QRSD: 90 QT: 364 QTc: 442 Brandon: P: 29 DE: 150 QRS: 30 T: 43 INTERPRETIVE STATEMENTS: Normal sinus rhythm Cannot rule out Anterior infarct, age undetermined Abnormal ECG Compared to ECG 03/03/2022 18:56:48 No significant changes Electronically Signed On 03-08-22 16:55:48 CDT by Stan Salmeron
== END 2022-03-04 22:34 | disposition home or self-care (01) ==
LOC: ER 21:06
DX: F10.20 Alcohol dependence, uncomplicated (principal); R07.9 Chest pain, unspecified; F17.220 Nicotine dependence, chewing tobacco, uncomplicated; F31.9 Bipolar disorder, unspecified
CPT/HCPCS: 93005; 99285

== ENCOUNTER 2022-04-03 02:45 | Emergency (ER) | payer OTHER ==
--- OUTSIDE RECORDS SUMMARY | 2022-04-03 02:51 | XMS REPORT | Continuity of Care Document ---
:1970 Author Organization [facility] t Address [address] [place] [address] [address] [place] [address] Care Team Providers Name Role Phone Asked, No Pcp Primary Care Physician Unavailable Indra Moura Attending Clinician Unavailable Fernie Pierce Attending Clinician Unavailable Blanquita Loja Attending Clinician Unavailable Debbie Devine Attending Clinician Unavailable Avtar MUÑOZ Attending Clinician Unavailable Avtar Pierce Attending Clinician Melchor Sanches MD Attending Clinician Dianne Morris MDHDennis Attending Clinician DIANNE MORRISHDennis Attending Clinician Unavailable Doctor Unassigned, [place] Attending Clinician Unavailable Anselmo Zuniga DO Attending [...] Number Effective Date Expiration Date Umm jauregui [facility] [id number] 2021 00:00:00 MEDICARE PART A [id number] 2017 \\T\\ B 00:00:00 [employer] [id number] 2021 MEDICARE ADVANTAGE 00:00:00 Problems Condition Condition [...] 2-16 it y of on on 00:00: [place] [facility] Atypical Atypical Disease Active Unive rs chest pain chest pain 2-16 it y of 00:00: [place] 00 [facility] Alcohol Alcohol Disease Active Univers withdrawal withdrawal 2-15 it y of 00:00: [place] 00 [facility] 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 Depression Depression Disease Recurre Univers nce 2-17 ity of 00:00: [place] [facility] Acute Acute Disease Active Univers respirator respirator 2-17 it y of y failure [place] failure [place] [facility] Tobacco Tobacco Disease Active Univers abuse abuse 2-17 ity of disorder disorder 00:00: [place] [facility] Suicidal Suicidal Disease Active Unive rs ideation ideation - ity of 00:00: [place] [facility] Allergies, Adverse Reactions, Alerts Allergy Allergy Status Severity Reaction(s) Onset Inactive Treating Comm ents Source Name Type Date Date Clinician NO KNOWN Drug Active Univers ALLERGIE Class ity of S [facility] Social History Social Habit Start Date Stop Date Quantity Comments Source History of Chews Tobacco [place] of tobacco use [facility] [place] [facility] Exposure to 2021-11-28 2021-12-08 Not sure [facility] SARS-CoV-2 00:00:00 21:20:00 [facility] Tobacco use and 2019-06-01 2019-06-01 User of smokeless Un iversity of exposure 00:00:00 00:00:00 tobacco [facility] [place] [facility] Alcohol intake 2015-10-18 2015-10-18 Current drinker [facility] 00:00:00 00:00:00 of alcohol (finding) Alcohol Comment 2015-10-18 2015-10-18 case a day some [facility] 00:00:00 00:00:00 days Sex Ass[birth year] At [birth year] [facility] 00:00:00 00:00:00 Smoking Status Start Date Stop Date Source Ex-smoker 2019-06-01 00:00:00 2019-06-01 00:00:00 [facility] Smokes tobacco daily 2015-10-18 00:00:00 [facility] Medications Ordered Filled Start Stop Current Ordering Indication Dosage Frequency Signature Comments Components Source Medication Medication Date Date Medication? Clinician (SIG) Name Name ketorolac 15mg 15 mg, Unive rs (TORADOL) 12-09 07 Slow IV ity of injection 04:00: 15:59 Push, [place] 15 mg 00 :00 ONCE, 1 Medical dose, On Branch 12/08/21 at 2300, IDA aspirin 2021-0 2021- No 324mg 324 mg, Unive rs chewable 12-09 07-25 Oral, ity of tablet 324 04:00: 15:59 ONCE, 1 [place] as mg 00 :00 dose, On Medical [place] [facility] 12/08/21 at 2300, Routine atorvastati Yes [...] by ity of tablet 00:00: mouth at [place] [address] bedtime. Medical Branch lamoTRIgine 2020-0 Yes 100mg Take 100 U nivers 100 mg 9-27 mg by ity of tablet 00:00: mouth at [place] [address] bedtime. Medical Branch lamoTRIgine 2020-0 Yes 100mg Take 100 U nivers 100 mg 9-27 mg by ity of tablet 00:00: mouth at [place] 00 bedtime. Medical Branch lamoTRIgine 2020-0 Yes 100mg Take 100 U nivers 100 mg 9-27 mg by ity of tablet 00:00: mouth at [place] [address] bedtime. Medical Branch lamoTRIgine 2020-0 Yes 100mg Take 100 U nivers 100 mg 9-27 mg by ity of tablet 00:00: mouth at [place] [address] bedtime. Medical Branch lamoTRIgine 2020-0 Yes 100mg [...] Branch daily. foLIC acid 2020-0 2020- No [id number] 1mg Take 1 Univers 1 mg tablet 2-18 03-20 tablet by it y of 00:00: 04:59 mouth [place] 00 :00 daily for Medical 30 days. Branch thiamine 2020-0 2020- No [id number] 100mg Take 1 Univers 100 mg 2-18 03-20 tablet by ity of tablet 00:00: 04:59 mouth [place] 00 :00 daily for Medical 30 days. Branch foLIC acid 2020-0 2020- No [id number] 1mg Take 1 Univers 1 mg tablet 2-18 03-20 tablet by it y of 00:00: 04:59 mouth [place] 00 :00 daily for Medical 30 days. Branch thiamine 2019-0 2020- No [id number] 100mg Take 1 Univers 100 mg 2-18 03-20 tablet by ity of tablet 00:00: 04:59 mouth [place] 00 :00 daily for Medical 30 days. [facility] foLIC acid 2020-0 2020- No [id number] 1mg Take 1 Univers 1 mg tablet 2-18 03-20 tablet by it y of 00:00: 04:59 mouth [place] 00 :00 daily for Medical 30 days. [facility] thiamine 2019-0 2020- No [id number] 100mg Take 1 Univers 100 mg 2-18 03-20 tablet by ity of tablet 00:00: 04:59 mouth [place] 00 :00 daily for Medical 30 days. [facility] foLIC acid 2019-0 2020- No [id number] 1mg Take 1 Univers 1 mg tablet 2-18 03-20 tablet by it y of 00:00: 04:59 mouth [place] 00 :00 daily for Medical 30 days. [facility] thiamine 2019-0 2020- No [id number] 100mg Take 1 Univers 100 mg 2-18 03-20 tablet by ity of tablet 00:00: 04:59 mouth [place] 00 :00 daily for Medical 30 days. [facility] foLIC acid 2019-0 2020- No [id number] 1mg Take 1 Univers 1 mg tablet 2-18 03-20 tablet by it y of 00:00: 04:59 mouth [place] 00 :00 daily for Medical 30 days. [facility] thiamine 2019-0 2020- No [id number] 100mg Take 1 Univers 100 mg 2-18 03-20 tablet by ity of tablet 00:00: 04:59 mouth [place] 00 :00 daily for Medical 30 days. [facility] foLIC acid 2019-0 2020- No [id number] 1mg Take 1 Univers 1 mg tablet 2-18 03-20 tablet by it y of 00:00: 04:59 mouth [place] 00 :00 daily for Medical 30 days. [facility] thiamine 2019-0 2020- No [id number] 100mg Take 1 Univers 100 mg 2-18 03-20 tablet by ity of tablet 00:00: 04:59 mouth [place] 00 :00 daily for Medical 30 days. [facility] QUEtiapine 0 2020- No 300mg Take 300 U nivers (SEROQUEL) 2-17 02-17 mg by ity of 300 mg 22:43: 00:00 mouth [place] tablet 15 :00 every Medical evening. [facility] hydralAZINE 2019-0 Yes 10mg 10 mg, Univ [...] mg 18:59: Q4HPRN, [place] 52 Starting Medical [facility] Branch 07/04/19 at 1259, Until Discontinu ed, Routine, Pain (scale 7-10) lisinopril 2019-0 Yes 10mg 10 mg, Unive rs (PRINIVIL,Z 2-17 Oral, ity of ESTRIL) 18:30: DAILY, [place] tablet 10 00 First dose Medi johnson mg on [facility] Branch 07/04/19 at 1230, Until Discontinu ed, Routine LORazepam 1 2019-0 Yes [id number] 1mg Take 1 Univers mg tablet 2-17 tablet by ity o f 00:00: mouth 3 [place] 00 (three) Medical times Branch daily as needed for Anxiety or Agitation. traMADol 50 2020-0 Yes [id number] 50mg Take 1 Univers mg tablet 2-17 [id number] tablet by ity of 00:00: mouth [place] 00 every 6 Medical (six) Branch hours as needed for Pain (scale 4-6). LORazepam 1 2020-0 Yes [id number] 1mg Take 1 Univers mg tablet 2-17 tablet by ity o f 00:00: mouth 3 [place] 00 (three) Medical times Branch daily as needed for Anxiety or Agitation. traMADol 50 2020-0 Yes [id number] 50mg Take 1 Univers mg tablet 2-17 [id number] tablet by ity of 00:00: mouth [place] 00 every 6 Medical (six) Branch hours as needed for Pain (scale 4-6). LORazepam 1 2020-0 Yes [id number] 1mg Take 1 Univers mg tablet 2-17 tablet by ity o f 00:00: mouth 3 [place] 00 (three) Medical times Branch daily as needed for Anxiety or Agitation. traMADol 50 2020-0 Yes [id number] 50mg Take 1 Univers mg tablet 2-17 [id number] tablet by ity of 00:00: mouth [place] 00 every 6 Medical (six) Branch hours as needed for Pain (scale 4-6). LORazepam 1 2020-0 Yes [id number] 1mg Take 1 Univers mg tablet 2-17 tablet by ity o f 00:00: mouth 3 [place] 00 (three) Medical times Branch daily as needed for Anxiety or Agitation. traMADol 50 2020-0 Yes [id number] 50mg Take 1 Univers mg tablet 2-17 [id number] tablet by ity of 00:00: mouth [place] 00 every 6 Medical (six) Branch hours as needed for Pain (scale 4-6). LORazepam 1 2020-0 Yes [id number] 1mg Take 1 Univers mg tablet 2-17 tablet by ity o f 00:00: mouth 3 [place] 00 (three) Medical times Branch daily as needed for Anxiety or Agitation. traMADol 50 2020-0 Yes [id number] 50mg Take 1 Univers mg tablet 2-17 [id number] tablet by ity of 00:00: mouth [place] 00 every 6 Medical (six) Branch hours as needed for Pain (scale 4-6). LORazepam 1 2020-0 Yes [id number] 1mg Take 1 Univers mg tablet 2-17 tablet by ity o f 00:00: mouth 3 [place] 00 (three) Medical times Branch daily as needed for Anxiety or Agitation. traMADol 50 2020-0 Yes [id number] 50mg Take 1 Univers mg tablet 2-17 [id number] tablet by ity of 00:00: mouth [place] 00 every 6 Medical (six) Branch hours as needed for Pain (scale 4-6). LORazepam 1 2020-0 Yes [id number] 1mg Take 1 Univers mg tablet 2-17 tablet by ity o f 00:00: mouth 3 [place] 00 (three) Medical times Branch daily as needed for Anxiety or Agitation. traMADol 50 2020-0 Yes [id number] 50mg Take 1 Univers mg tablet 2-17 [id number] tablet by ity of 00:00: mouth [place] 00 every 6 Medical (six) Branch hours as needed for Pain (scale 4-6). LORazepam 1 2020-0 Yes [id number] 1mg Take 1 Univers mg tablet 2-17 tablet by ity o f 00:00: mouth 3 [place] 00 (three) Medical times Branch daily as needed for Anxiety or Agitation. traMADol 50 2020-0 Yes [id number] 50mg Take 1 Univers mg tablet 2-17 [id number] tablet by ity of 00:00: mouth [place] 00 every 6 Medical (six) Branch hours as needed for Pain (scale 4-6). LORazepam 1 2020-0 Yes [id number] 1mg Take 1 Univers mg tablet 2-17 tablet by ity o f 00:00: mouth 3 [place] 00 (three) Medical times Branch daily as needed for Anxiety or Agitation. traMADol 50 2020-0 Yes [id number] 50mg Take 1 Univers mg tablet 2-17 [id number] tablet by ity of 00:00: mouth [place] 00 every 6 Medical (six) Branch hours as needed for Pain (scale 4-6). LORazepam 1 2020-0 Yes [id number] 1mg Take 1 Univers mg tablet 2-17 tablet by ity o f 00:00: mouth 3 [place] 00 (three) Medical times Branch daily as needed for Anxiety or Agitation. traMADol 50 2020-0 Yes [id number] 50mg Take 1 Univers mg tablet 2-17 [id number] tablet by ity of 00:00: mouth [place] 00 every 6 Medical (six) Branch hours as needed for Pain (scale 4-6). LORazepam 1 2020-0 Yes [id number] 1mg Take 1 Univers mg tablet 2-17 tablet by ity o f 00:00: mouth 3 [place] 00 (three) Medical times Branch daily as needed for Anxiety or Agitation. traMADol 50 2020-0 Yes [id number] 50mg Take 1 Univers mg tablet 2-17 [id number] tablet by ity of 00:00: mouth [place] 00 every 6 Medical (six) Branch hours as needed for Pain (scale 4-6). LORazepam 1 2020-0 Yes [id number] 1mg Take 1 Univers mg tablet 2-17 tablet by ity o f 00:00: mouth 3 [place] 00 (three) Medical times Branch daily as needed for Anxiety or Agitation. traMADol 50 2020-0 Yes [id number] 50mg Take 1 Univers mg tablet 2-17 [id number] tablet by ity of 00:00: mouth [place] 00 every 6 Medical (six) Branch hours as needed for Pain (scale 4-6). LORazepam 1 2019-0 Yes [id number] 1mg Take 1 Univers mg tablet 2-17 tablet by ity o f 00:00: mouth 3 [place] 00 (three) Medical times Branch daily as needed for Anxiety or Agitation. traMADol 50 2019-0 Yes [id number] 50mg Take 1 Univers mg tablet 2-17 [id number] tablet by ity of 00:00: mouth [place] 00 every 6 Medical (six) Branch hours as needed for Pain (scale 4-6). LORazepam 1 2019-0 Yes [id number] 1mg Take 1 Univers mg tablet 2-17 tablet by ity o f 00:00: mouth 3 [place] 00 (three) Medical times Branch daily as needed for Anxiety or Agitation. traMADol 50 2019-0 Yes [id number] 50mg Take 1 Univers mg tablet 2- [id number] tablet by ity of 00:00: mouth [place] 00 every 6 Medical (six) Branch hours as needed for Pain (scale 4-6). LORazepam 1 2019- No [id number] 1mg Take 1 Univers mg tablet 2-03 03- tablet by ity of 00:00: 00:00 mouth 3 [place] 00 :00 (three) Medical times Branch daily as needed for Anxiety or Agitation. traMADol 50 2019- No [id number] 50mg Take 1 Univers mg tablet 2-02-20 [id number] tablet by it y of 00:00: 00:00 mouth [place] 00 :00 every 6 Medical (six) Branch hours as needed for Pain (scale 4-6). LORazepam 1 2019- No [id number] 1mg Take 1 Univers mg tablet 2-17 - tablet by ity of 00:00: 00:00 mouth 3 [place] 00 :00 (three) Medical times Branch daily as needed for Anxiety or Agitation. traMADol 50 0 2020- No [id number] 50mg Take 1 Univers mg tablet 2-17 - [id number] tablet by it y of 00:00: 00:00 mouth [place] 00 :00 every 6 Medical (six) Branch hours as needed for Pain (scale 4-6). lisinopril 2019- No [id number] 20mg Take 1 Univers 20 mg 2-17 -19 tablet by ity of tablet 00:00: 04:59 mouth [place] 00 :00 daily for Medical 30 days. [facility] lisinopril 2020-0 2020- No [id number] 20mg Take 1 Univers 20 mg 2-17 03-19 tablet by ity of tablet 00:00: 04:59 mouth [place] 00 :00 daily for Medical 30 days. [facility] lisinopril 2020-0 2020- No [id number] 20mg Take 1 Univers 20 mg 2-17 03-19 tablet by ity of tablet 00:00: 04:59 mouth [place] 00 :00 daily for Medical 30 days. [facility] lisinopril 2020-0 2020- No [id number] 20mg Take 1 Univers 20 mg 2-17 -19 tablet by ity of tablet 00:00: 04:59 mouth [place] 00 :00 daily for Medical 30 days. [facility] lisinopril 2020-0 2020- No [id number] 20mg Take 1 Univers 20 mg 2-17 03-19 tablet by ity of tablet 00:00: 04:59 mouth [place] 00 :00 daily for Medical 30 days. [facility] lisinopril 2020-0 2020- No [id number] 20mg Take 1 Univers 20 mg 2-17 -19 tablet by ity of tablet 00:00: 04:59 mouth [place] 00 :00 daily for Medical 30 days. [facility] KCL 2020-0 2020- No 40meq 40 mEq, Univers (KLOR-CON 2-16 02-16 Oral, ity of M20) tablet 23:30: 23:12 ONCE, 1 [place] 40 mEq 00 :00 dose, [facility] 07/03/19 at Branch 1730, Routine enoxaparin 2020-0 Yes 40mg 40 mg, Unive rs (LOVENOX) 2-16 Subcutaneo ity of injection 15:00: us, DAILY, [place] 40 mg 00 First dose Medical on [facility] 07/03/19 at 0900, Until Discontinu ed, Routine thiamine 2020-0 Yes 100mg 100 mg, Unive rs (VITAMIN 2-16 Oral, ity of B1) tablet 15:00: DAILY, [place] 100 mg 00 First dose Medical on [facility] 07/03/19 at 0900, Until Discontinu ed, Routine thiamine 2020-0 Yes IV Univers (VITAMIN 2-16 Infusion, ity of B1) 100 mg, 15:00: at 125 [place] foLIC acid 00 mL/hr, Medical (FOLATE) 1 DAILY, Branch mg, First dose multivitami on [facility] adult 07/03/19 at (INFUVITE 0900, ADULT) Until 3,300 unit- Discontinu 150 mcg/10 ed, 1,000 mL 10 mL in mL NaCl 0.45% (1/2NS) IV Solution aspirin 2020-0 Yes 81mg 81 mg, Univers chewable 2-16 Oral, ity of tablet 81 15:00: DAILY, [place] mg 00 First dose Medical on [facility] 07/03/19 at 0900, Until Discontinu ed, Routine foLIC acid 2020-0 Yes 1mg 1 mg, Univer s (FOLATE) 2-16 Oral, ity of tablet 1 mg 15:00: DAILY, [place] 00 First dose Medical on [facility] 07/03/19 at 0900, Until Discontinu ed, Routine LORazepam 2020-0 Yes 1mg 1 mg, Slow Un luis alfredo (ATIVAN) 2-16 IV Push, ity of injection 1 03:05: Q4HPRN, [place] as mg 01 Starting Medical [facility] 07/02/19 at 2105, Until Discontinu ed, Routine, Anxiety, Agitation, Sedation mirtazapine 2020-0 Yes 30mg 30 mg, Univ ers (REMERON) 2-16 Oral, QHS, ity of tablet 30 03:00: First dose [place] mg 00 on [facility] 07/02/19 at Branch 2100, Until Discontinu ed, Routine atorvastati 2020-0 Yes 40mg 40 mg, Univ ers n (LIPITOR) 2-16 Oral, QHS, it y of tablet 40 03:00: First dose [place] mg 00 on [facility] 07/02/19 at Branch 2100, Until Discontinu ed, Routine metoprolol 2020-0 Yes 50mg 50 mg, Unive rs tartrate 2-16 Oral, BID, ity o f (LOPRESSOR) 02:00: First dose [place] tablet 50 00 on [facility] 07/02/19 at Branch 2000, Until Discontinu ed, Routine gabapentin 2020-0 Yes 600mg 600 mg, Uni vers (NEURONTIN) 2-16 Oral, TID, it y of capsule 600 02:00: First dose [place] mg 00 on [facility] 07/02/19 at Branch 2000, Until Discontinu ed, [...] dose, Sat Medical 1,000 mg 07/02/19 at [facility] h 1515, IDA LORazepam 2019- 2020- No 1mg 1 mg, Univer s (ATIVAN) 07-02 Oral, ity of tablet 1 mg 21:15: 20:08 ONCE, 1 [place] 00 :00 dose, Sat Medical 07/02/19 at Branch 1515, IDA ondansetron 2019-0 Yes 4mg 4 mg, Slow Univers (ZOFRAN 07-02 IV Push, ity of (PF)) 21:11: Q6HPRN, [place] injection 4 50 Starting Medi johnson mg Sat Branch 07/02/19 at 1511, Until Discontinu ed, Routine, Nausea and Vomiting (N/V) morpHINE 2019-0 2020- No 2mg 2 mg, Slow Un luis alfredo injection 2 07-02 IV Push, ity of mg 21:11: 03:09 Q4HPN, [place] 40 :25 Starting Medical Sat Branch 07/02/19 [...] Medical evening. Branch aspirin 81 2020-0 Yes [id number] 81mg Take 1 U nivers mg chewable 1-01 tablet by ity of tablet 00:00: mouth [place] 00 daily. Medical Branch aspirin 81 2020-0 Yes [id number] 81mg Take 1 U nivers mg chewable 1-01 tablet by ity of tablet 00:00: mouth [place] 00 daily. Medical Branch aspirin 81 2020-0 Yes [id number] 81mg Take 1 U nivers mg chewable 1-01 tablet by ity of tablet 00:00: mouth [place] 00 daily. Medical Branch aspirin 81 2020-0 Yes [id number] 81mg Take 1 U nivers mg chewable 1-01 tablet by ity of tablet 00:00: mouth [place] 00 daily. Medical Branch aspirin 81 2020-0 Yes [id number] 81mg Take 1 U nivers mg chewable 1-01 tablet by ity of tablet 00:00: mouth [place] 00 daily. Medical Branch aspirin 81 2020-0 Yes [id number] 81mg Take 1 U nivers mg chewable 1-01 tablet by ity of tablet 00:00: mouth [place] 00 daily. Medical Branch aspirin 81 2020-0 Yes [id number] 81mg Take 1 U nivers mg chewable 1-01 tablet by ity of tablet 00:00: mouth [place] 00 daily. Medical Branch aspirin 81 2020-0 Yes [id number] 81mg Take 1 U nivers mg chewable 1-01 tablet by ity of tablet 00:00: mouth [place] 00 daily. Medical Branch aspirin 81 2020-0 Yes [id number] 81mg Take 1 U nivers mg chewable 1-01 tablet by ity of tablet 00:00: mouth [place] 00 daily. Medical Branch aspirin 81 2019- No [id number] 81mg Take 1 Univers mg chewable 05-18 tablet by it y of tablet 00:00: 00:00 mouth [place] 00 :00 daily. Medical Branch lisinopril 2019- No [id number] 2.5mg Take 1 Univers 2.5 mg 05-18 tablet by ity of tablet 00:00: 00:00 mouth [place] 00 :00 daily. Medical Branch lisinopril 2019- No [id number] 2.5mg Take 1 Univers 2.5 mg 05-18 tablet by ity of tablet 00:00: 00:00 mouth [place] 00 :00 daily. Medical Branch atorvastati 2018-05 Yes [id number] 40mg Take 1 Univers n 40 mg 2-31 tablet by ity of tablet 00:00: mouth at [place] 00 bedtime. Medical Branch nitroglycer 2018-[id number] 1 Univers in 0.3 mg 2-31 tablet ity of sublingual 00:00: under the [place] tablet 00 tongue Medical every 5 Branch (five) minutes as needed for Chest pain. metoprolol 2018-05 Yes [id number] 50mg Take 1 U nivers tartrate 50 2-31 tablet by ity of mg tablet 00:00: mouth 2 [place] (two) Medical times Branch daily. atorvastati 2018-05 Yes [id number] 40mg Take 1 Univers n 40 mg 2-31 tablet by ity of tablet 00:00: mouth at [place] 00 bedtime. Medical Branch nitroglycer 2018-[id number] 1 Univers in 0.3 mg 2-31 tablet ity of sublingual 00:00: under the [place] tablet 00 tongue Medical every 5 Branch (five) minutes as needed for Chest pain. metoprolol 2018-05 Yes [id number] 50mg Take 1 U nivers tartrate 50 2-31 tablet by ity of mg tablet 00:00: mouth 2 [place] 00 (two) Medical times Branch daily. atorvastati 2018-05 Yes [id number] 40mg Take 1 Univers n 40 mg 2-31 tablet by ity of tablet 00:00: mouth at [place] [address] bedtime. Medical Branch nitroglycer 2018-[id number] 1 Univers in 0.3 mg 2-31 tablet ity of sublingual 00:00: under the [place] tablet 00 tongue Medical every 5 Branch (five) minutes as needed for Chest pain. metoprolol 2018-05 Yes [id number] 50mg Take 1 U nivers tartrate 50 2-31 tablet by ity of mg tablet 00:00: mouth 2 (two) Medical times Branch daily. atorvastati 2018-05 Yes [id number] 40mg Take 1 Univers n 40 mg 2-31 tablet by ity of tablet 00:00: mouth at [place] bedtime. Medical Branch nitroglycer 2018-[id number] 1 Univers in 0.3 mg 2-31 tablet ity of sublingual 00:00: under the [place] tablet 00 tongue Medical every 5 Branch (five) minutes as needed for Chest pain. metoprolol 2018-05 Yes [id number] 50mg Take 1 U nivers tartrate 50 2-31 tablet by ity of mg tablet 00:00: mouth 2 (two) Medical times Branch daily. atorvastati 2018-05 Yes [id number] 40mg Take 1 Univers n 40 mg 2-31 tablet by ity of tablet 00:00: mouth at [place] bedtime. Medical Branch nitroglycer 2018-[id number] 1 Univers in 0.3 mg 2-31 tablet ity of sublingual 00:00: under the [place] tablet 00 tongue Medical every 5 Branch (five) minutes as needed for Chest pain. metoprolol 2018-05 Yes [id number] 50mg Take 1 U nivers tartrate 50 2-31 tablet by ity of mg tablet 00:00: mouth 2 [place] (two) Medical times Branch daily. atorvastati 2018-05 Yes [id number] 40mg Take 1 Univers n 40 mg 2-31 tablet by ity of tablet 00:00: mouth at [place] [address] bedtime. Medical Branch nitroglycer 2018-[id number] 1 Univers in 0.3 mg 2-31 tablet ity of sublingual 00:00: under the [place] tablet 00 tongue Medical every 5 Branch (five) minutes as needed for Chest pain. nitroglycer 2018-[id number] 1 Univers in 0.3 mg 2-31 tablet ity of sublingual 00:00: under the [place] tablet 00 tongue Medical every 5 Branch (five) minutes as needed for Chest pain. oxazepam 15 2018-05 Yes [id number] 15mg Take 1 Univers mg capsule 2-31 capsule by ity of 00:00: mouth [place] 00 every 4 Medical (four) Branch hours as needed for Anxiety. PRN nitroglycer 2018-[id number] 1 Univers in 0.3 mg 2-31 tablet ity of sublingual 00:00: under the [place] tablet 00 tongue Medical every 5 Branch (five) minutes as needed for Chest pain. nitroglycer 2018-[id number] 1 Univers in 0.3 mg 2-31 tablet ity of sublingual 00:00: under the [place] tablet 00 tongue Medical every 5 Branch (five) minutes as needed for Chest pain. metoprolol 2018-05 Yes [id number] 50mg Take 1 U nivers tartrate 50 2-31 tablet by ity of mg tablet 00:00: mouth 00 (two) Medical times Branch daily. nitroglycer 2018-[id number] 1 Univers in 0.3 mg 2-31 tablet ity of sublingual 00:00: under the [place] tablet 00 tongue Medical every 5 Branch (five) minutes as needed for Chest pain. nitroglycer 2018-[id number] 1 Univers in 0.3 mg 2-31 tablet ity of sublingual 00:00: under the [place] tablet 00 tongue Medical every 5 Branch (five) minutes as needed for Chest pain. nitroglycer 2018-[id number] 1 Univers in 0.3 mg 2-31 tablet ity of sublingual 00:00: under the [place] tablet 00 tongue Medical every 5 Branch (five) minutes as needed for Chest pain. nitroglycer 2018-[id number] 1 Univers in 0.3 mg 2-31 tablet ity of sublingual 00:00: under the [place] tablet 00 tongue Medical every 5 Branch (five) minutes as needed for Chest pain. nitroglycer 2018-[id number] 1 Univers in 0.3 mg 2-31 tablet ity of sublingual 00:00: under the [place] tablet 00 tongue Medical every 5 Branch (five) minutes as needed for Chest pain. atorvastati 2018-05 Yes [id number] 40mg Take 1 Univers n 40 mg 2-31 tablet by ity of tablet 00:00: mouth at [place] 00 bedtime. Medical Branch nitroglycer 2018-[id number] 1 Univers in 0.3 mg 2-31 tablet ity of sublingual 00:00: [place] the [place] tablet 00 tongue Medical every 5 Branch (five) minutes as needed for Chest pain. oxazepam 2018-05 Yes [id number] 15mg Take 1 Univers mg capsule 2-31 capsule by ity of 00:00: mouth [place] 00 every 4 Medical (four) Branch hours as needed for Anxiety. PRN metoprolol 2018-05 Yes [id number] 50mg Take 1 U nivers tartrate 50 2-31 tablet by ity of mg tablet 00:00: mouth 2 [place] 00 (two) Medical times Branch daily. atorvastati 2018-05 Yes [id number] 40mg Take 1 Univers n 40 mg 2-31 tablet by ity of tablet 00:00: mouth at [place] 00 bedtime. Medical Branch nitroglycer 2018-[id number] 1 Univers in 0.3 mg 2-31 tablet ity of sublingual 00:00: [place] tablet 00 tongue Medical every 5 Branch (five) minutes as needed for Chest pain. oxazepam 2018-05 Yes [id number] 15mg Take 1 Univers mg capsule 2-31 capsule by ity of 00:00: mouth [place] 00 every 4 Medical (four) Branch hours as needed for Anxiety. PRN metoprolol 2018-05 Yes [id number] 50mg Take 1 U nivers tartrate 50 2-31 tablet by ity of mg tablet 00:00: mouth 2 [place] 00 (two) Medical times Branch daily. atorvastati 2018-05 Yes [id number] 40mg Take 1 Univers n 40 mg 2-31 tablet by ity of tablet 00:00: mouth at [place] 00 bedtime. Medical Branch nitroglycer 2018-[id number] 1 Univers in 0.3 mg 2-31 tablet ity of sublingual 00:00: [place] the [place] tablet 00 tongue Medical every 5 Branch (five) minutes as needed for Chest pain. metoprolol 2018-05 Yes [id number] 50mg Take 1 U nivers tartrate 50 2-31 tablet by ity of mg tablet 00:00: mouth 2 [place] 00 (two) Medical times Branch daily. nitroglycer 2018-05- No [id number] .3mg Place 1 Univers in 0.3 mg 02-20 tablet ity of sublingual 00:00: 00:00 under the [place] tablet 00 :00 tongue Medical every 5 Branch (five) minutes as needed for Chest pain. nitroglycer 2018-05- No [id number] .3mg Place 1 Univers in 0.3 mg 02-20 tablet ity of sublingual 00:00: 00:00 under the [place] tablet 00 :00 tongue Medical every 5 Branch (five) minutes as needed for Chest pain. atorvastati 2018-05- No [id number] 40mg Take 1 Univers n 40 mg 08-16 tablet by ity of tablet 00:00: 00:00 mouth at [place] 00 :00 bedtime. Medical Branch metoprolol 2018-05- No [id number] 50mg Take 1 Univers tartrate 50 08-16 tablet by it y of mg tablet 00:00: 00:[place] :[place] (two) Medical times Branch daily. oxazepam 15 2018-05 2020- No [id number] 15mg Take 1 Univers mg capsule 07-04 capsule by it y of 00:00: 00:00 mouth [place] 00 :00 every 4 Medical (four) Branch hours as needed for Anxiety. PRN Vital Signs Vital Name Observation Time Observation Value Comments Source Systolic blood 2021-12-09 02:22:00 119 mm[facility]Hg[facility] [place] [facility] Diastolic blood 2021-12-09 02:22:00 81 mm[Hg] Unive [facility] Heart rate 2021-12-09 02:22:00 94 /min General acute hospital Body temperature 2021-12-09 02:22:00 36.67 Kaylee [facility] Respiratory rate 2021-12-09 02:22:00 18 /min [facility] Body height 2021-12-09 02:22:00 177.8 cm General acute hospital Body weight 2021-12-09 02:22:00 79.379 kg [facility] BMI 2021-12-09 02:22:00 25.11 kg/m2 [facility]i [facility] [place] [facility] Oxygen saturation in 2021-12-09 02:22:00 99 /min University of Arterial blood by [facility] johnson Pulse oximetry Branch Systolic blood 2020-02-21 13:56:00 130 mm[Hg] Univer sity of pressure [place] [facility] Diastolic blood 2020-02-21 13:56:00 85 mm[Hg] Unive rsity of pressure [place] [facility] Heart rate 2020-02-21 13:55:00 68 /min [facility] [place] [facility] Respiratory rate 2020-02-21 13:55:00 19 /min Univ ersity [facility] [place] [facility] Body height 2020-02-21 13:55:00 177.8 cm [facility] [place] [facility] Body weight 2020-02-21 13:55:00 96.117 kg [facility] [place] [facility] BMI 2020-02-21 13:55:00 30.40 kg/m2 [facility] [place] [facility] Oxygen saturation in 2020-02-21 13:55:00 98 /min University of Arterial blood by [facility] Pulse oximetry Branch Systolic blood 2019-11-18 14:41:00 147 mm[Hg] Univer sity of pressure [place] [facility] Diastolic blood 2019-11-18 14:41:00 88 mm[Hg] Unive rsity of pressure [place] [facility] Heart rate 2019-11-18 14:41:00 103 /min [facility] [place] [facility] Body temperature 2019-11-18 14:41:00 37.17 Kaylee [facility] [place] [facility] Respiratory rate 2019-11-18 14:41:00 18 /min Univ [facility] [place] [facility] Body height 2019-11-18 14:41:00 177.8 cm [facility] [place] [facility] Body weight 2019-11-18 14:41:00 106.595 kg [facility] [place] [facility] BMI 2019-11-18 14:41:00 33.72 kg/m2 [facility] [place] [facility] Oxygen saturation in 2019-11-18 14:41:00 98 /min University of Arterial blood by [facility] johnson Pulse oximetry Branch Systolic blood 2019-11-18 14:41:00 147 mm[Hg] Univer sity of pressure [place] [facility] Diastolic blood 2019-11-18 14:41:00 88 mm[Hg] Unive rsity of pressure [place] [facility] Heart rate 2019-11-18 14:41:00 103 /min [facility] [place] [facility] Body temperature 2019-11-18 14:41:00 37.17 Kaylee [facility] [place] [facility] Respiratory rate 2019-11-18 14:41:00 18 /min Univ [facility] [place] [facility] Body height 2019-11-18 14:41:00 177.8 cm [facility] [place] [facility] Body weight 2019-11-18 14:41:00 106.595 kg [facility] [place] [facility] BMI 2019-11-18 14:41:00 33.72 kg/m2 [facility] [place] [facility] Oxygen saturation in 2019-11-18 14:41:00 98 /min University of Arterial blood by [facility] Pulse oximetry Branch Systolic blood 2019-07-10 23:35:00 153 mm[Hg] Univer sity of pressure [place] [facility] Diastolic blood 2019-07-10 23:35:00 83 mm[Hg] Unive rsity of pressure [place] [facility] Heart rate 2019-07-10 23:35:00 90 /min [facility] [place] [facility] Body temperature 2019-07-10 23:35:00 36.67 Kaylee [facility] [place] [facility] Respiratory rate 2019-07-10 23:35:00 18 /min Univ ers[facility] [place] [facility] Body height 2019-07-10 23:35:00 177.8 cm [facility] [place] [facility] Body weight 2019-07-10 23:35:00 117.935 kg [facility] [place] [facility] BMI 2019-07-10 23:35:00 37.31 kg/m2 [facility] [place] [facility] Oxygen saturation in 2019-07-10 23:35:00 96 /min University of Arterial blood by [facility] johnson Pulse oximetry Branch Systolic blood 2019-07-10 23:35:00 153 mm[Hg] Univer sity of pressure [place] [facility] Diastolic blood 2019-07-10 23:35:00 83 mm[Hg] Unive rsity of pressure [place] [facility] Heart rate 2019-07-10 23:35:00 90 /min [facility]i [facility] [place] [facility] Body temperature 2019-07-10 23:35:00 36.67 Kaylee [facility] [place] [facility] Respiratory rate 2019-07-10 23:35:00 18 /min Univ [facility] [place] [facility] Body height 2019-07-10 23:35:00 177.8 cm [facility] [place] [facility] Body weight 2019-07-10 23:35:00 117.935 kg [facility] [place] [facility] BMI 2019-07-10 23:35:00 37.31 kg/m2 [facility] [place] [facility] Oxygen saturation in 2019-07-10 23:35:00 96 /min University of Arterial blood by [place] [facility] johnson Pulse oximetry Branch Systolic blood 2019-07-04 21:00:00 158 mm[Hg] Univer sity of pressure [place] [facility] Diastolic blood 2019-07-04 21:00:00 106 mm[Hg] Unive rsity of pressure [place] [facility] Heart rate 2019-07-04 21:00:00 98 /min [facility] [place] [facility] Body temperature 2019-07-04 21:00:00 36.67 Kaylee [facility] [place] [facility] Respiratory rate 2019-07-04 21:00:00 20 /min Univ [facility] [place] [facility] Oxygen saturation in 2019-07-04 21:00:00 99 /min University of Arterial blood by [place] [facility] johnson Pulse oximetry Branch Body height 2019-07-02 21:10:00 177.8 cm [facility] [place] [facility] Body weight 2019-07-02 21:10:00 117.935 kg [facility] [place] [facility] BMI 2019-07-02 21:10:00 37.31 kg/m2 [facility] [place] [facility] Systolic blood 2019-07-04 21:00:00 158 mm[Hg] Univer sity of pressure [place] [facility] Diastolic blood 2019-07-04 21:00:00 106 mm[Hg] Unive rsity of pressure [place] [facility] Heart rate 2019-07-04 21:00:00 98 /min [facility] [place] [facility] Body temperature 2019-07-04 21:00:00 36.67 Kaylee [facility] [place] [facility] Respiratory rate 2019-07-04 21:00:00 20 /min Univ [facility] [place] [facility] Oxygen saturation in 2019-07-04 21:00:00 99 /min University of Arterial blood by [place] [facility] johnson Pulse oximetry Branch Body height 2019-07-02 21:10:00 177.8 cm [facility] [place] [facility] Body weight 2019-07-02 21:10:00 117.935 kg [facility] [place] [facility] BMI 2019-07-02 21:10:00 37.31 kg/m2 [facility] [place] [facility] Systolic blood 2019-06-01 19:53:00 130 mm[Hg] Univer sity of pressure [place] [facility] Diastolic blood 2019-06-01 19:53:00 90 mm[Hg] Unive rsity of pressure [facility] Branch Heart rate 2019-06-01 19:53:00 78 /min Universi ty of [facility] Branch Respiratory rate 2019-06-01 19:53:00 19 /min Univ ersity of [facility] Branch Body height 2019-06-01 19:53:00 177.8 cm [facility] [place] [facility] Body weight 2019-06-01 19:53:00 122.154 kg [facility] [place] [facility] BMI 2019-06-01 19:53:00 38.64 kg/m2 Universi ty of [facility] Branch Oxygen saturation in 2019-06-01 19:53:00 97 /min University of Arterial blood by [facility] Pulse oximetry Branch Systolic blood 2019-06-01 19:53:00 130 mm[Hg] Univer sity of pressure [facility] Branch Diastolic blood 2019-06-01 19:53:00 90 mm[Hg] Unive [facility]ity [facility] [place] [facility] Heart rate 2019-06-01 19:53:00 78 /min [facility]i ty [facility] [place] [facility] Respiratory rate 2019-06-01 19:53:00 19 /min Univ ersity of [facility] Branch Body height 2019-06-01 19:53:00 177.8 cm [facility] [place] [facility] Body weight 2019-06-01 19:53:00 122.154 kg [facility] [place] [facility] BMI 2019-06-01 19:53:00 38.64 kg/m2 Universi ty of [facility] Branch Oxygen saturation in 2019-06-01 19:53:00 97 /min University of Arterial blood by [facility] Pulse oximetry Branch Procedures Procedure Date / Time Performing Clinician Source Performed XR CHEST 1 VW 2021-12-09 02:40:45 Zaki Galvan [facility] LIPASE 2021-12-09 02:32:00 Zaki Galvan [facility] TROPONIN I 2021-12-09 02:32:00 Zaki Galvan [facility] COMP. METABOLIC PANEL 2021-12-09 02:32:00 Zaki Galvan [facility] ([id number]) Medical Branch CBC WITH DIFF 2021-12-09 02:32:00 Zaki Galvan [facility] PROTHROMBIN TIME / INR 2021-12-09 02:32:00 Zaki Galvan [facility] COVID-19 (ID NOW RAPID 2021-12-09 02:32:00 conradak [facility] TESTING) Medical Branch CONSENT/REFUSAL FOR 2021-12-09 02:17:21 Doctor Unassigned, No Un [facility] [place] DIAGNOSIS AND TREATMENT Name Medical Branch EXTERNAL PROVIDER - ADC 2020-02-08 05:01:00 Doctor Unassigned, N o [facility] CARDIOLOGY Name Medical Branch NOTICE OF PRIVACY 2019-11-18 14:36:16 Doctor Unassigned, No Univ [facility] PRACTICES Name Medical Branch CONSENT/REFUSAL FOR 2019-11-18 14:36:00 Doctor Unassigned, No Un [facility] [place] DIAGNOSIS AND TREATMENT Name Medical Branch NOTICE OF PRIVACY 2019-07-10 23:30:15 Doctor Unassigned, No Univ [facility] PRACTICES Name Medical Branch CONSENT/REFUSAL FOR 2019-07-10 23:29:51 Doctor Unassigned, No Un [facility] [place] DIAGNOSIS AND TREATMENT Name Medical Branch MAGNESIUM 2019-07-04 18:37:00 Geoffrey [facility] BASIC METABOLIC PANEL 2019-07-04 18:37[facility], [facility], CL, CO2, Medical Branch GLUCOSE, BUN, CREATININE, CA) MAGNESIUM 2019-07-03 07:55:00 Geoffrey [facility] TROPONIN I 2019-07-03 07:55:00 Geoffrey [facility] BASIC METABOLIC PANEL 2019-07-03 07:55[facility] (NA, K, CL, CO2, Medical Branch GLUCOSE, BUN, CREATININE, CA) CBC WITH DIFFERENTIAL 2019-07-03 07:55:00 Desean Hale [facility] TROPONIN I 2019-07-02 23:18:00 Geoffrey [facility] ADC / LCC - DRUG SCREEN 2019-07-02 19:50:00 Dwight Noel [facility] TRIAGE [facility] XR RIBS 3 VW LEFT 2019-07-02 18:57:39 Dwight Noel [facility] XR CHEST 1 VW 2019-07-02 18:46:[address] [facility] LIPASE 2019-07-02 18:14:[address] [facility] MAGNESIUM 2019-07-02 18:14:[address] [facility] TROPONIN I 2019-07-02 18:14:[address] [facility] HEPATIC FUNCTION PANEL 2019-07-02 18:14:00 Dwight Noel [facility] ([id number]) (ALB,T.PRO,BILI [facility] T,BU/BC,ALT,AST,ALK PHOS) BASIC METABOLIC PANEL 2019-07-02 18:14:00 Dwight Noel [facility] (NA, K, CL, CO2, Medical Branch GLUCOSE, BUN, CREATININE, CA) ETHANOL 2019-07-02 18:14:[address] [facility] CBC WITH DIFFERENTIAL 2019-07-02 18:14[facility]00 [facility] PROTHROMBIN TIME / INR 2019-07-02 18:14:00 [facility] ACTIVATED PARTIAL 2019-07-02 18:14:00 [facility] THRMPLAS [facility] N-TERMINAL PRO-BNP 2019-07-02 18:14:00 Dwight Noel [facility] EKG-12 LEAD 2019-07-02 17:45:[address] [facility] Encounters Start End Encounter Admission Attending Care Care Encounter Source Date/Time Date/Time Type Type Clinicians Facility Department ID 2022-02-28 Outpatient [facility] [id number] [place] 06:34:54 [id number] [facility] 2022-02-27 Outpatient [facility] [id number] [place] 14:33:13 [id number] [facility] 2022-02-13 Outpatient Moura, STLMLC STLMLC Common 16:02:01 Indra [facility] 2022-01-24 Outpatient Moura, STLMLC STLMLC Common 10:37:00 Indra [facility] 2022-01-22 Outpatient Moura, STLMLC STLMLC Common 11:29:01 Indra [facility] 2021-08-16 Outpatient BAYTN SMITATN [id number] [place] 14:59:50 [id number] [facility] 2021-08-14 Outpatient WEST MINERALTN SMITAN [id number] [place] 13:27:24 [id number] [facility] 2021-06-12 Outpatient Moura, STLMLC STLC Common 14:30:57 Indra [facility] 2021-06-12 Outpatient Moura, STLMLC STLMLC Common 14:25:40 Indra [id number] [facility] 2021-06-12 Outpatient Moura, STLMLC STLMLC Common 13:50:26 Indra 40528 [facility] 2021-06-12 Outpatient Moura, STLMLC STLMLC Common 13:25:25 Indra 91266 [facility] 2021-06-12 Outpatient Moura, STLMLC STLMLC Common 13:10:24 Indra [id number] [facility] 2021-06-12 Outpatient Moura, STLMLC STLMLC Common 12:58:21 Indra 28530 [facility] 2021-06-12 Outpatient Moura, STLMLC STLMLC Common 12:47:41 Indra 63261 [facility] 2021-06-12 Outpatient Moura, STLMLC STLMLC Common 12:27:06 Indra 13371 [facility] 2021-06-12 Outpatient Moura, STLMLC STLMLC [id number] Common 12:26:55 Indra 32566 [facility] 2021-06-12 Outpatient Moura, STLMLC STLMLC [id number] Common 12:26:34 Indra 47395 [facility] 2021-06-12 Outpatient Moura, STLMLC STLMLC [id number] Common 12:24:18 Indra 14232 [facility] 2021-06-12 Outpatient Moura, STLMLC STLMLC [id number] Common 12:22:57 Indra 20833 [facility] 2021-06-12 Outpatient Fernie [facility] [id number] Common 11:41:54 Read [id number] [facility] 2021-06-12 Outpatient Millender, STLMLC STLC [id number] Common 11:36:22 Blanquita 75761 [facility] 2021-06-12 Outpatient Devine, STLMLC STLC [id number] Common 11:18:04 Debbie 75262 [facility] 2021-03-15 Emergency [facility] [id number] Univers 04:29:04 ity [facility] 2016-06-11 Inpatient C [facility] [id number] [facility]. 15:30:00 [facility] 2021-12-08 2021-12-08 Emergency X Avtar MUÑOZ [facility] ERT [id number] Univers 21:17:00 22:10:00 ity [facility] 2021-12-08 2021-12-08 Emergency Avtar Muñoz [facility] [id number] Univers 21:17:00 22:10:00 Caryn TELLO [id number] i ty [facility] [id number] [facility] [phone] [place] [address] Branch 2021-04-26 2021-04-26 [facility] [id number] Univers 00:00:00 00:00:00 Melchor TELLO [id number] ity [id number] [phone] [place] [id number] [facility] 2020-08-01 2020-08-01 Refill [facility] [id number] Univers 00:00:00 00:00:00 Qiangjun [place]aver [id number] ity [id number] [phone] [address] 2020-05-14 2020-05-14 Refill [facility] [id number] Univers 00:00:00 00:00:00 Qiangjun [place] [id number] ity [id number] [phone] [address] 2020-02-21 2020-02-21 Office [facility] [id number] Univers 08:44:09 09:23:32 Visit Dianne [place]ello [id number] ity [id number] [phone] [address] 2020-02-21 2020-02-21 [facility] [id number] Univers 09:00:00 09:00:00 SENDIL ity of [facility] [place] [facility] 2020-02-08 2020-02-08 Telephone [facility] [id number] Univers 00:00:00 00:00:00 Juanpablojun [place] [id number] ity [id number] [phone] [address] 2020-02-08 2020-02-08 Orders Doctor MEEKS 1.2.840.114 [id number] Univers 00:00:00 00:00:00 Only Unassigned, DELROY [id number] ity of [place] [facility] [id number] Akbar as [phone] [address] 2020-01-27 2020-01-27 Refill Baltazar, [facility] 1.2.840.114 [id number] Univers 00:00:00 00:00:00 Qiazuleima [place] [id number] ity [id number] [phone] Pr dic[address] 2020-01-10 2020-01-10 Telephone [facility], [facility] [id number] Univers 00:00:00 00:00:00 Qianguzma [place] [id number] ity [id number] [phone] [address] 2019-11-18 2019-11-18 Emergency Zuniga, [facility] [id number] [facility] 09:42:51 11:00:00 Anselmo [place] [id number] i ty of [place] [id number] [phone] [address] 2019-11-18 2019-11-18 Emergency Zuniga, [facility] [id number] 09:42:51 11:00:00 Anselmo Macdonaldton [id number] [place] [id number] [place] [phone] [facility] 2019-10-23 2019-10-23 [facility], [facility] [id number] [facility] 00:00:00 00:00:00 Duaneurmilauzma [place] [id number] ity of [id number] [phone] Pr dic[address] 2019-10-23 2019-10-23 Telephone [facility], [facility] [id number] 00:00:00 00:00:00 Qiazuleima [place] [id number] [place] [id number] Professio [id number] [address] 2019-09-21 2019-09-21 Telephone [facility], [facility] [id number] [facility] 00:00:00 00:00:00 Qiazuleima [place] [id number] ity of [id number] [id number] [address] 2019-09-21 2019-09-21 Telephone [facility] [id number] 00:00:00 00:00:00 Qiangjun [place] [id number] [place] [id number] Professio [id number] [address] 2019-08-17 2019-08-17 Telemedici [facility] 1.2.840.114 [id number] [facility] 14:22:37 15:02:11 ne Visit Melchor Macdonaldton [id number] ity [id number] [phone] [address] 2019-08-17 2019-08-17 [facility] 1.2.840.114 [id number] 14:22:37 15:02:11 ne Visit Melchor Macdonaldton [id number] [place] [id number] Professio [phone] [address] 2019-08-17 2019-08-17 Outpatient R [facility] [id number] Univers 14:40:00 14:40:00 MELCHOR ity o f [facility] [place] [facility] 2019-07-27 2019-07-27 [facility] [id number] [facility] 00:00:00 00:00:00 Melchor Macdonaldton [id number] ity [id number] [phone] [address] 2019-07-27 2019-07-27 [facility] [id number] 00:00:00 00:00:00 Qiangjun [place] [id number] [place] [id number] Professio [phone] [address] 2019-07-10 2019-07-10 Emergency Zuniga, [facility] [id number] [facility] 17:33:57 18:51:00 Anselmo Tello [id number] i ty of [id number] [phone] [address] 2019-07-10 2019-07-10 Emergency Zuniga, [facility] [id number] 17:33:57 18:51:00 Anselmo Tello [id number] [place] [id number] [place] [phone] [facility] 2019-07-10 2019-07-10 Orders Doctor JEANNA 1.2.840.114 [id number] Univers 00:00:00 00:00:00 Only Unassigned, DELROY [id number] ity of [place] [facility] 4.2.7.2.686 Akbar as [phone] [address] 2019-07-10 2019-07-10 Orders Doctor MEEKS 1.2.840.114 [id number] 00:00:00 00:00:00 Only Unassigned, [place] 350.1.13.10 [place] [facility] 4.2.7.2.686 [id number] [facility] 2019-07-08 2019-07-08 Telephone [facility] 1.2.840.114 [id number] [facility] 00:00:00 00:00:00 Chago Tello [id number] i ty [id number] [phone] Pr dical [address] 2019-07-08 2019-07-08 Telephone [facility] 1.2.840.114 [id number] 00:00:00 00:00:00 Chago Tello [id number] [place] [id number] Professio [phone] [address] 2019-07-05 2019-07-05 Transition Tawana Franco 1.2.840.114 [id number] Univers 00:00:00 00:00:00 of Care Flori Méndez [id number] it y [place] [phone] [facility] 403 Branch 2019-07-05 2019-07-05 Transition Tawana Franco 1.2.840.114 [id number] 00:00:00 00:00:00 of Care Flori Méndez [id number] [place] [id number] [id number] 403 2019-07-02 2019-07-04 Inpatient X [facility] [id number] Univers 11:42:40 18:46:00 ity of [facility] [place] [facility] 2019-07-02 2019-07-04 [facility] 1.2.840.1 [id number] Univers 11:42:40 18:46:00 Encounter Desean Hale [id number] ity of [id number] [phone] [facility] [address] [place] 2019-07-02 2019-07-04 [facility] Jaspreet Noelnell [facility] 1.2.840.1 [id number] 11:42:40 18:46:00 Encounter Desean Hale 350.1.13.10 [place] 4.2.7.2.686 [place] [phone] [facility] 2019-06-13 2019-06-13 [facility] 1.2.840.114 [id number] Univers 00:00:00 00:00:00 Chago Tello 350.1.13.10 i ty [place] [phone] Pr dical [address] 2019-06-13 2019-06-13 [facility] 1.2.840.114 [id number] 00:00:00 00:00:00 Chago Tello 350.1.13.10 [place] 4.2.7.2.686 Professio [phone] [address] 2019-06-01 2019-06-01 Office [facility] 1.2.840.114 [id number] Univers 13:31:45 14:23:22 Visit Melchor Tello 350.1.13.10 ity of [place] 4.2.7.2.686 Elsie ambriz Professio [phone] Pr dical nal 0[facility] 2019-06-01 2019-06-01 [facility] 1.2.840.114 [id number] 13:31:45 14:23:22 Visit Melchor Tello 350.1.13.10 [place] 4.2.7.2.686 Professio [phone] [address] Results Test Description Test Time Test [...] indications. Lab Interpretation (test code = Normal 28015-2) [facility] METABOLIC PANEL (NA, K, CL, CO2, GLUCOSE, BUN, CREATININE, CA)2019-07-04 19:25:00 Test Item Value Reference Range Interpretation Comments NA (test code = 137 mmol/L 135-145 9280574537) K (test code = 4.1 mmol/L 3.5-5 5405373409) CL (test code = 102 mmol/L 98-108 6598572817) CO2 TOTAL (test code = 27 mmol/L 23-31 4095810761) AGAP (test code = 2-16 9527211575) BUN (test code = 12 mg/dL 7-23 8818018178) GLUCOSE (test code = 103 mg/dL 70-110 3782161622) CREATININE (test code 0.70 mg/dL 0.6-1.25 = 6367746076) CALCIUM (test code = 8.8 mg/dL 8.6-10.6 2587429753) eGFR Calculation mL/min/1.73m2 (Non-) (test code = 8185412405) eGFR Calculation mL/min/1.73m2 () (test code = 2331810344) DAQUAN (test code = DAQUAN) Association of [...] or urine or abnormalities in imaging tests). [facility]17 19:24:00 Test Item Value Reference Range Interpretation Comments MAGNESIUM (test code = 6870437690) 2.3 mg/dL 1.7-2.4 Lab Interpretation (test code = Normal 76293-4) [facility] TaylorXR RIBS 3 VW [id number] 14:21:01 Left seventh through tenth rib fractures. [...] have reviewed this study and agree withthe abovereport.[facility] 2019-07-03 08:28:00 Test Item Value Reference Range Interpretation Comments TROPONIN I (test <0.012 See_Comment [Automated code = 5106333807) message] The system which generated this result [...] ? Lab Interpretation Normal (test code = 14276-6) [facility] Metabolic Panel (NA, K, CL, CO2, GLUCOSE, BUN, CREATININE, CA)2019-07-03 08:17:00 Test Item Value Reference Range Interpretation Comments NA (test code = 132 mmol/L 135-145 L 4955011921) K (test code = 3.3 mmol/L 3.5-5 L 9508625623) CL (test code = 94 mmol/L 98-108 L 7321138992) CO2 TOTAL (test code = 27 mmol/L 23-31 7325650126) AGAP (test code = 2-16 5036571239) BUN (test code = 18 mg/dL 7-23 4559176372) GLUCOSE (test code = 116 mg/dL 70-110 H 6170790625) CREATININE (test code = 0.68 mg/dL 0.6-1.25 8760364357) CALCIUM (test code = 8.6 mg/dL 8.6-10.6 8930376140) eGFR Calculation mL/min/1.73m2 (Non-) (test code = 0542289779) eGFR Calculation mL/min/1.73m2 () (test code = 0518564429) DAQUAN (test code = DAQUAN) Association of [...] tests). Lab Interpretation Abnormal (test code = 04033-3) [facility] TaylorMagn[facility] [id number] 08:17:00 Test Item Value Reference Range Interpretation Comments MAGNESIUM (test code = 7903838886) 1.7 mg/dL 1.7-2.4 Lab Interpretation (test code = Normal 47972-3) [facility] TaylorCB WITH [id number] 08:04:00 Test Item Value Reference Range Interpretation Comments WBC (test code = See_Comment [Automated 6690-2) message] The sy stem which generated this result transmitted reference range : 4.20 - 10.70 10*3/?L. The reference range was not used to interpret this result as normal/abnormal . RBC (test code = See_Comment [Automated 389-8) message] The sy stem which generated this [...] RDW-SD (test code = 41.0 fL 38.5-51.6 26988-7) RDW-CV (test code = 14.0 % 12.1-15.4 788-0) PLT (test code = See_Comment L [Automated 777-3) message] The sy stem which generated this result transmitted reference range : 150 - 328 10*3/ ?L. The reference r susan was not used to interpret this result as normal/abnormal . MPV (test code = 9.8 fL 9.8-13 71680-0) NRBC/100 WBC (test See_Comment [Automat ed code = 1455080212) message] The system which generated this result transmitted reference range : 0.0 - 10.0 /100 WBCs. The refer ence range was not u sed to interpret th is result as normal/abnormal . NRBC x10^3 (test code <0.01 See_Comment [Auto mated = 9537960915) message] The s ystem which generated this result transmitted reference range : 10*3/?L. The reference range was not used to interpret this result as normal/abnormal . GRAN MAT (NEUT) % 76.1 % (test code = 770-8) IMM GRAN % (test code 0.30 % = 3436125714) LYMPH % (test code = 15.8 % 736-9) MONO % (test code = 7.0 % 5905-5) EOS % (test code = 0.3 % 713-8) BASO % (test code = 0.5 % 706-2) GRAN MAT x10^3(ANC) 7.19 10*3/uL 1.99-6.95 H (test code = 8403669994) IMM GRAN x10^3 (test 0.03 10*3/uL 0-0.06 code = 9718795234) LYMPH x10^3 (test code 1.49 10*3/uL 1.09-3.23 = 731-0) MONO x10^3 (test code 0.66 10*3/uL 0.36-1.02 = 742-7) EOS x10^3 (test code = 0.03 10*3/uL 0.06-0.53 L 711-2) BASO x10^3 (test code 0.05 10*3/uL 0.01-0.09 = 704-7) Lab Interpretation Abnormal (test code = 39043-4) [facility] [id number] 23:57:00 Test Item Value Reference Range Interpretation Comments TROPONIN I (test <0.012 See_Comment [Automated code = 1021890719) message] The system which generated this result [...] ? Lab Interpretation Normal (test code = 57736-0) [facility] - DRUG SCREEN [id number] 20:14:00 Test Item Value Reference Range Interpretation Comments BENZO U (test code = Presumptive Positive Negative A 5994474015) OLEGARIO U (test code = Negative Negative 5533887370) AMPHET (test code = Negative Negative 2483585215) THC (test code = Negative Negative 2927434880) METHADONE (test code = Negative Negative 7496798828) Meth U (test code = Negative Negative 6230397580) OPIATES (test code = Negative Negative 3402160314) Cocaine Metabolite (test Negative Negative code = 5755216120) PROPOXY (test code = Negative Negative 4576112379) Tric U (test code = Negative Negative 4124557944) PCP (test code = Negative Negative 0566091871) OXYCOD (test code = Negative Negative 3898541331) DAQUAN (test code = DAQUAN) Urine Drug [...] testing). Lab Interpretation (test Abnormal code = 98320-3) [facility] 1 [id number] 19:18:48 Left 8th through 10th rib fractures. [...] left lateral 8th through 10th rib fractures.. [place], Radiant Results Inft User- 07/02/2019 1:19 PM [...] reviewed this study and agree with the abovereport.[facility] TaylorTroponin [id number] 19:12:00 Test Item Value Reference Range Interpretation Comments TROPONIN I (test <0.012 See_Comment [Automated code = 6554339103) message] The system which generated this result [...] ? Lab Interpretation Normal (test code = 66222-3) [facility] TayloraPTT2020-02-15 19:12:00 Test Item Value Reference Range Interpretation Comments APTT Patient (test See_Comment [Automat ed code = 3173-2) message] The system which generated this result transmitted reference range : 23 - 38 Seconds . The reference range was not used to interpr et this result as normal/abnormal . DAQUNA (test code = DAQUAN) The [facility] patient population mean normal value for aPTT is 30 seconds. Lab Interpretation Normal (test code = 43573-6) [facility] TaylorProthrombin Time (PT) / [id number] 19:10:00 Test Item Value Reference Range Interpretation [...] tions. Lab Interpretation (test Normal code = 62350-8) [facility] TaylorN-TERMINAL [id number] 19:09:00 Test Item Value Reference Range Interpretation Comments NT-proBNP (test code 12 pg/mL See_Comment [Autom ated = 3727225549) message] The system which generated this result transmitted reference range : <=125. The reference range was not used to interpret this result as normal/abnormal . DAQUAN (test code = DAQUAN) Biotin has been reported to cause a negative bias, interpret results relative to patient's use of biotin. Lab Interpretation Normal (test code = 89172-2) [facility] TaylorETHANOL2020-02-15 19:01:00 Test Item Value Reference Range Interpretation Comments ALCOHOL (test code = 277 mg/dL 0042781966) DAQUAN (test code = DAQUAN) <10 Nbojccxk36-806 Toxic>100 Depression of PATIENT SAFETY COORDINATOR>400 Fatalities Reported [facility] TaylorMAGNESIUM2020-02-15 19:00:00 Test Item Value Reference Range Interpretation Comments MAGNESIUM (test code = 5319514802) 2.2 mg/dL 1.7-2.4 Lab Interpretation (test code = Normal 92018-6) [facility] TaylorBasic Metabolic Panel (NA, K, CL, CO2, GLUCOSE, BUN, CREATININE, CA)2019-07-02 19:00:00 Test Item Value Reference Range Interpretation Comments NA (test code = 143 mmol/L 135-145 0325053322) K (test code = 4.5 mmol/L 3.5-5 1313754712) CL (test code = 100 mmol/L 98-108 7045971419) CO2 TOTAL (test code = 25 mmol/L 23-31 0374750862) AGAP (test code = 2-16 H 6911476051) BUN (test code = 16 mg/dL 7-23 1127391455) GLUCOSE (test code = 121 mg/dL 70-110 H 8189947455) CREATININE (test code = 0.69 mg/dL 0.6-1.25 1106457516) CALCIUM (test code = 8.6 mg/dL 8.6-10.6 8903754980) eGFR Calculation mL/min/1.73m2 (Non-) (test code = 1347130609) eGFR Calculation mL/min/1.73m2 () (test code = 8699779226) DAQUAN (test code = DAQUAN) Association of [...] tests). Lab Interpretation Abnormal (test code = 85524-8) [facility] TaylorHepatic Function Panel (ALB, T.PRO, BILI T, BU/BC, ALT, AST, ALK PHOS)2019-07-02 19:00:00 Test Item Value Reference Range Interpretation Comments TOTAL BILI (test code = 4835530103) 0.9 mg/dL 0.1-1.1 BILI UNCON (test code = 3856211844) 0.5 mg/dL 0.1-1.1 BILI CONJ (test code = 6245615819) 0.0 mg/dL 0-0.3 T PROTEIN (test code = 5736400191) 8.3 g/dL 6.3-8.2 H ALBUMIN (test code = 9129343559) 4.9 g/dL 3.5-5 ALK PHOS (test code = 6582193337) 93 U/L 34-122 ALTv (test code = 1742-6) 32 U/L 5-50 AST(SGOT) (test code = 9291751134) 57 U/L 13-40 H Lab Interpretation (test code = Abnormal 50336-6) [facility] TaylorLipase [id number] 19:00:00 Test Item Value Reference Range Interpretation Comments LIPASE (test code = 9538130249) 274 U/L 0-220 H Lab Interpretation (test code = Abnormal 05845-3) [facility] WITH [id number] 18:47:00 Test Item Value Reference Range Interpretation Comments WBC (test code = See_Comment [Automated 7790-2) message] The sy stem which generated this result transmitted reference range : 4.20 - 10.70 10*3/?L. The reference range was not used to interpret this result as normal/abnormal . RBC (test code = See_Comment H [Automated 152-8) message] The sy stem which generated this [...] RDW-SD (test code = 40.3 fL 38.5-51.6 55978-1) RDW-CV (test code = 14.0 % 12.1-15.4 788-0) PLT (test code = See_Comment [Automated 777-3) message] The sy stem which generated this result transmitted reference range : 150 - 328 10*3/ ?L. The reference r susan was not used to interpret this result as normal/abnormal . MPV (test code = 9.7 fL 9.8-13 L 14775-6) NRBC/100 WBC (test See_Comment [Automat ed code = 8500531590) message] The system which generated this result transmitted reference range : 0.0 - 10.0 /100 WBCs. The refer ence range was not u sed to interpret th is result as normal/abnormal . NRBC x10^3 (test code <0.01 See_Comment [Auto mated = 8181128406) message] The s ystem which generated this result transmitted reference range : 10*3/?L. The reference range was not used to interpret this result as normal/abnormal . GRAN MAT (NEUT) % 61.6 % (test code = 770-8) IMM GRAN % (test code 0.30 % = 3026385412) LYMPH % (test code = 30.7 % 736-9) MONO % (test code = 5.4 % 5905-5) EOS % (test code = 1.3 % 713-8) BASO % (test code = 0.7 % 706-2) GRAN MAT x10^3(ANC) 4.67 10*3/uL 1.99-6.95 (test code = 1267434253) IMM GRAN x10^3 (test <0.03 0-0.06 code = 7643506355) LYMPH x10^3 (test code 2.33 10*3/uL 1.09-3.23 = 731-0) MONO x10^3 (test code 0.41 10*3/uL 0.36-1.02 = 742-7) EOS x10^3 (test code = 0.10 10*3/uL 0.06-0.53 711-2) BASO x10^3 (test code 0.05 10*3/uL 0.01-0.09 = 704-7) Lab Interpretation Abnormal (test code = 84178-0) [facility]"
[2022-04-03] MEDS ORDERED: NA CHLORIDE 0.9% 1,000 ML ONE (04:22)
[2022-04-03] MEDS ORDERED: LORazepam 2 MG/ML VIAL ONE ×3 (04:22→08:08)
[2022-04-03 06:26] LABS: Absolute Lymphocytes (CBC) 1.8 K/uL (0.7-4.9); Hematocrit 45.2 % (39.6-49.0); RBC Red Blood Cell Count 5.45 M/uL (4.33-5.43)
[2022-04-03 06:46] LABS: Albumin 3.5 g/dL (3.4-5.0); Bilirubin Total 0.7 mg/dL (0.2-1.0); Potassium 3.4 mmol/L (3.5-5.1); Protein, Total 7.6 g/dL (6.4-8.2)
--- NOTE | 2022-04-03 07:46 | EDPHYS ---
Physician Documentation [facility] Name: Frank Polo Age: 51 yrs Sex: Male : 1970 Arrival Date: 04/03/2022 Time: 02:47 Bed 15 Private MD: ED Physician Tay Key HPI: 04/03 06:52 This 51 yrs old Male presents to ER via EMS with complaints of Alcohol withdrawal. rt 06:52 Onset: The symptoms/episode began/occurred 4 hour(s) ago. Severity of symptoms: At rt their worst the symptoms were moderate. The patient has experienced similar episodes in the past. Patient presents to the ED with reported alcohol withdrawal symptoms. He states that he had a seizure, however, he states that he does not lose consciousness, states he had shaking of his head. He reports feeling shaky. He last drank at 8 PM. The patient denies other acute complaints at this time, symptoms are moderate in severity, no other aggravating or alleviating factors.. Historical: - Allergies: 03:53 NKDA; vc1 - Home Meds: 03:53 atorvastatin Oral [Active]; gabapentin 300 mg Oral cap 1 cap 3 times per day [Active]; vc1 Remeron 15 mg Oral tab [Active]; - PMHx: 03:53 Alcoholism; Anxiety; Bipolar disorder; PE; Myocardial infarction; vc1 - PSHx: 03:53 ankle surgery; vc1 - Immunization history:: Client reports having NOT received the Covid vaccine. - Social history:: Smoking status: Patient uses alcohol, on a daily basis. claims drinking about a 6 pack/day. Last drink Thursday. - Family history:: not pertinent. ROS: 06:52 Constitutional: Negative for fever, chills, and weight loss, Eyes: Negative for injury, rt pain, redness, and discharge, ENT: Negative for injury, pain, and discharge, Cardiovascular: Negative for chest pain, palpitations, and edema, Respiratory: Negative for shortness of breath, cough, wheezing, and pleuritic chest pain, Abdomen/GI: Negative for abdominal pain, nausea, vomiting, diarrhea, and constipation, MS/Extremity: Negative for injury and deformity, Skin: Negative for injury, rash, and discoloration, Psych: Negative for depression, anxiety, suicide ideation, homicidal ideation, and hallucinations. 06:52 Neuro: Positive for Reports shaking, no altered mental status. Exam: 06:52 Constitutional: This is a well developed, well nourished patient who is awake, alert, rt and in no acute distress. 06:52 Head/Face: Normocephalic, atraumatic. Eyes: Pupils equal round and reactive to light, extra-ocular motions intact. Lids and lashes normal. Conjunctiva and sclera are non-icteric and not injected. Cornea within normal limits. Periorbital areas with no swelling, redness, or edema. ENT: Nares patent. No nasal discharge, no septal abnormalities noted. Tympanic membranes are normal and external auditory canals are clear. Oropharynx with no redness, swelling, or masses, exudates, or evidence of obstruction, uvula midline. Mucous membranes moist. Chest/axilla: Normal chest wall appearance and motion. Nontender with no deformity. No lesions are appreciated. Respiratory: Lungs have equal breath sounds bilaterally, clear to auscultation and percussion. No rales, rhonchi or wheezes noted. No increased work of breathing, no retractions or nasal flaring. Abdomen/GI: Soft, non-tender, with normal bowel sounds. No distension or tympany. No guarding or rebound. No evidence of tenderness throughout. Back: No spinal tenderness. No costovertebral tenderness. Full range of motion. Male : Normal genitalia with no discharge or lesions. Skin: Warm, dry with normal turgor. Normal color with no rashes, no lesions, and no evidence of cellulitis. MS/ Extremity: Pulses equal, no cyanosis. Neurovascular intact. Full, normal range of motion. Psych: Awake, alert, with orientation to person, place and time. Behavior, mood, and affect are within normal limits. 06:52 Cardiovascular: Tachycardic, regular rhythm, heart sounds normal. 06:52 ECG was reviewed by the Attending Physician. 06:52 Neuro: Tremulous, moves all 4 extremities equally.. Vital Signs: 03:49 Weight 90.72 kg; Height 5 ft. 10 in. (177.80 cm); vc1 03:56 Pulse 116; Resp 20; Temp 98.9; Pulse Ox 100% ; vc1 03:59 BP 109 / 66; vc1 05:19 BP 125 / 81; Pulse 107; Resp 20; Pulse Ox 100% on R/A; kd3 07:48 BP 118 / 89; Pulse 102; Resp 14; Temp 98.0(O); Pulse Ox 98% on R/A; Pain 0/10; kc6 09:09 BP 105 / 93; Pulse 98; Resp 25 S; Pulse Ox 96% on R/A; Pain 0/10; kc6 03:49 Body Mass Index 28.70 (90.72 kg, 177.80 cm) vc1 MDM: 04:03 Patient medically screened. rt 07:50 Data reviewed: vital signs, nurses notes, EKG, radiologic studies, CT scan. Data amy interpreted: cardiac monitor technician: rate is 102 beats/min, rhythm is regular, Pulse oximetry: on room air is 98 %. Test interpretation: by ED physician or midlevel provider: ECG. Counseling: I had a detailed discussion with the patient and/or guardian regarding: the historical points, exam findings, and any diagnostic results supporting the discharge/admit diagnosis, lab results, radiology results, the need for outpatient follow up, for definitive care, a family practitioner, a psychiatrist. 04/03 04:18 Order name: CMP; Complete Time: 06:51 rt 04/03 04:18 Order name: CBC with Diff; Complete Time: 06:51 rt 04/03 04:18 Order name: Lipase; Complete Time: 06:51 rt 04/03 04:18 Order name: Alcohol Level; Complete Time: 07:13 rt 04/03 07:44 Order name: CT Abd/Pelvis - IV Contrast Only; Complete Time: 09:09 [facility] 04/03 07:53 Order name: Troponin High Sensitivity [facility] 04/03 04:57 Order name: EKG; Complete Time: 04:58 rt 04/03 04:57 Order name: EKG - Nurse/Tech; Complete Time: 05:04 rt EC:52 Rate is 98 beats/min. Rhythm is regular, Normal Sinus Rhythm with No ectopy. QRS rt interval is normal. QT interval is prolonged at 500 msec. Clinical impression: NSR w/ Non-specific ST/T Changes. Administered Medications: 04:43 Drug: NS 0.9% 1000 ml Route: IV; Rate: 1 bolus; Site: left forearm; aa9 04:43 Drug: Ativan (LORazepam) 1 mg Route: IVP; Site: left forearm; aa9 05:04 Follow up: Response: No adverse reaction; Anxiety unchanged aa9 05:18 Drug: Ativan (LORazepam) 1 mg Route: IVP; Site: left femoral; kd3 08:02 Drug: ProTONIX (pantoprazole) 40 mg Route: IVP; Site: left forearm; kc6 09:08 Follow up: Response: No adverse reaction kc6 08:02 Drug: Thiamine 100 mg Route: IV; Rate: per protocol; Site: left forearm; kc6 09:08 Follow up: IV Status: Completed infusion; IV Intake: 10ml kc6 09:08 Drug: Ativan (LORazepam) 1 mg Route: IVP; Site: left forearm; kc6 10:29 Follow up: Response: No adverse reaction; Anxiety decreased kc6 09:09 Drug: Banana Bag - (NS 0.9% 1000 ml, foLIC Acid 1 mg, Thiamine 100 mg, Multivitamin 1 kc6 amp) Route: IV; Rate: 500 bolus; Site: left forearm; Disposition Summary: 04/03/22 07:45 Discharge Ordered Location: Home amy Problem: new amy Symptoms: have improved amy Condition: Stable amy Diagnosis - Alcohol abuse with intoxication amy - Bipolar disorder, unspecified amy - Acute gastritis amy Followup: amy - With: Private Physician - When: 2 - 3 days - Reason: Recheck today's complaints, Continuance of care, Re-evaluation by your physician Followup: amy - With: Oliver Osorio MD - When: 2 - 3 days - Reason: Recheck today's complaints, Re-evaluation by your physician Discharge Instructions: - Discharge Summary Sheet amy - Alcohol Intoxication amy - Gastritis, Adult amy - Gastritis, Adult, Snui-yt-Qbku amy - Alcohol Intoxication, Affc-ip-Aovs amy Forms: - Medication Reconciliation Form amy - Thank You Letter amy - Antibiotic Education amy - Prescription Opioid Use [facility] Prescriptions: - chlordiazepoxide HCl 25 mg Oral capsule - take 1 capsule by ORAL route 4 times per day; 28 capsule; Refills: 0, Product amy Selection Permitted - Protonix 40 mg Oral Tablet - take 1 tablet by ORAL route once daily; 30 tablet; Refills: 0, Product amy Selection Permitted - Zofran 4 mg Oral Tablet - take 1 tablet by ORAL route every 12 hours As needed; 20 tablet; Refills: 0, amy Product Selection Permitted Signatures: Dispatcher [employer] Tay Goddard MD MD cha Doucette, Kyli, RN RN kd3 Sherley Nguyen, RN RN vc1 María Gay, RN RN aa9 Nitza White, RN RN kc6 Jassi Sanchez MD MD rt
--- NOTE | 2022-04-03 07:46 | ER ---
Nurse's Notes [facility] Carlos Eduardo Name: Frank Polo Age: 51 yrs Sex: Male : 1970 Arrival Date: 04/03/2022 Time: 02:47 Bed 15 Private MD: Diagnosis: Alcohol abuse with intoxication;Bipolar disorder, unspecified;Acute gastritis Presentation: 04/03 03:49 Chief complaint: Patient states: "I stopped drinking yesterday I had 3 seizures and I'm vc1 hallucinating.". Coronavirus screen: Vaccine status: Patient reports being unvaccinated. Ebola Screen: No symptoms or risks identified at this time. Risk Assessment: Do you want to hurt yourself or someone else? Patient reports no desire to harm self or others. Note "I want to go to [facility] for Alcohol detox". Onset of symptoms was April 02, 2022. 03:49 Method Of Arrival: EMS: [facility] vc1 03:49 Acuity: PRANAV 3 vc1 05:12 Initial Sepsis Screen: Does the patient meet any 2 criteria? No. Patient's initial aa9 sepsis screen is negative. Does the patient have a suspected source of infection? No. Patient's initial sepsis screen is negative. Triage Assessment: 03:52 General: Appears in no apparent distress. uncomfortable, Behavior is anxious, Smells of vc1 alcohol. Pain: Complains of pain in abdomen Pain currently is 9 out of 10 on a pain scale. EENT: No deficits noted. Neuro: Level of Consciousness is awake, obeys commands, Oriented to person, place, situation. Cardiovascular: No deficits noted. Respiratory: Airway is patent Respiratory effort is even, unlabored, Respiratory pattern is regular, symmetrical. GI: No deficits noted. : No deficits noted. Derm: No deficits noted. Musculoskeletal: No deficits noted. Historical: - Allergies: 03:53 NKDA; vc1 - Home Meds: 03:53 atorvastatin Oral [Active]; gabapentin 300 mg Oral cap 1 cap 3 times per day [Active]; vc1 Remeron 15 mg Oral tab [Active]; - PMHx: 03:53 Alcoholism; Anxiety; Bipolar disorder; PE; Myocardial infarction; vc1 - PSHx: 03:53 ankle surgery; vc1 - Immunization history:: Client reports having NOT received the Covid vaccine. - Social history:: Smoking status: Patient uses alcohol, on a daily basis. claims drinking about a 6 pack/day. Last drink Thursday. - Family history:: not pertinent. Screenin:52 Abuse screen: Denies threats or abuse. Nutritional screening: No deficits noted. vc1 Tuberculosis screening: No symptoms or risk factors identified. Fall Risk None identified. Assessment: 05:10 General: Appears uncomfortable, unkempt, Behavior is cooperative, anxious, restless. aa9 General: c/o shakiness and feeling anxious, states "I just can't keep feeling like this, I feel like I keep shaking and I can't stop.". Pain: Denies pain. Neuro: Level of Consciousness is awake, alert, obeys commands, Oriented to person, place, time, situation. Cardiovascular: Patient's skin is warm and dry. Respiratory: Airway is patent Respiratory effort is even, unlabored. GI: No signs and/or symptoms were reported involving the gastrointestinal system. : No signs and/or symptoms were reported regarding the genitourinary system. Derm: Skin is intact, is healthy with good turgor. 05:45 General: pt removed VS equipment, refused to put them back on. aa9 07:22 Reassessment: Patient appears in no apparent distress at this time. eyes closed, kc6 respirations even and unlabored. 07:49 Reassessment: Patient appears in no apparent distress at this time. No changes from kc6 previously documented assessment. Patient and/or family updated on plan of care and expected duration. Pain level reassessed. Patient is alert, oriented x 3, equal unlabored respirations, skin warm/dry/pink. Patient denies pain at this time. General: Smells of alcohol. 08:49 General: Smells of alcohol. kc6 09:09 Reassessment: Patient appears in no apparent distress at this time. No changes from kc6 previously documented assessment. Patient and/or family updated on plan of care and expected duration. Pain level reassessed. Patient is alert, oriented x 3, equal unlabored respirations, skin warm/dry/pink. Patient denies pain at this time. Vital Signs: 03:49 Weight 90.72 kg; Height 5 ft. 10 in. (177.80 cm); vc1 03:56 Pulse 116; Resp 20; Temp 98.9; Pulse Ox 100% ; vc1 03:59 BP 109 / 66; vc1 05:19 BP 125 / 81; Pulse 107; Resp 20; Pulse Ox 100% on R/A; kd3 07:48 BP 118 / 89; Pulse 102; Resp 14; Temp 98.0(O); Pulse Ox 98% on R/A; Pain 0/10; kc6 09:09 BP 105 / 93; Pulse 98; Resp 25 S; Pulse Ox 96% on R/A; Pain 0/10; kc6 03:49 Body Mass Index 28.70 (90.72 kg, 177.80 cm) vc1 ED Course: 02:47 Patient arrived in ED. mw2 03:52 Triage completed. vc1 03:55 Arm band placed on right wrist. vc1 03:59 Jassi Sanchez MD is Attending Physician. rt 04:19 María Gay, RN is Primary Nurse. aa9 04:36 Missed attempt(s): 20 gauge in right antecubital area. Bleeding controlled, band aid aa9 applied, catheter tip intact. 04:43 Inserted saline lock: 20 gauge in left forearm, using aseptic technique. aa9 05:12 Patient has correct armband on for positive identification. Bed in low position. Call aa9 light in reach. Side rails up X 1. 05:12 No provider procedures requiring assistance completed. aa9 05:19 CMP Sent. kd3 05:19 Lipase Sent. kd3 05:19 CBC with Diff Sent. kd3 05:19 Alcohol Level Sent. kd3 07:18 Attending Physician role handed off by Jassi Sanchez MD amy 07:18 Tay Key MD is Attending Physician. amy 07:45 Oliver Osorio MD is Referral Physician. amy 08:46 CT Abd/Pelvis - IV Contrast Only In Process Unspecified. EDMS 10:29 IV discontinued, intact, bleeding controlled, No redness/swelling at site. Pressure kc6 dressing applied. Administered Medications: 04:43 Drug: NS 0.9% 1000 ml Route: IV; Rate: 1 bolus; Site: left forearm; aa9 04:43 Drug: Ativan (LORazepam) 1 mg Route: IVP; Site: left forearm; aa9 05:04 Follow up: Response: No adverse reaction; Anxiety unchanged aa9 05:18 Drug: Ativan (LORazepam) 1 mg Route: IVP; Site: left femoral; kd3 08:02 Drug: ProTONIX (pantoprazole) 40 mg Route: IVP; Site: left forearm; kc6 09:08 Follow up: Response: No adverse reaction kc6 08:02 Drug: Thiamine 100 mg Route: IV; Rate: per protocol; Site: left forearm; kc6 09:08 Follow up: IV Status: Completed infusion; IV Intake: 10ml kc6 09:08 Drug: Ativan (LORazepam) 1 mg Route: IVP; Site: left forearm; kc6 10:29 Follow up: Response: No adverse reaction; Anxiety decreased kc6 09:09 Drug: Banana Bag - (NS 0.9% 1000 ml, foLIC Acid 1 mg, Thiamine 100 mg, Multivitamin 1 kc6 amp) Route: IV; Rate: 500 bolus; Site: left forearm; Medication: 03:55 VIS not applicable for this client. vc1 Intake: 09:08 IV: 10ml; Total: 10ml. kc6 Outcome: 07:45 Discharge ordered by . amy 10:29 Discharged to home ambulatory. kc6 10:29 Condition: stable 10:29 Discharge instructions given to patient, Instructed on discharge instructions, follow up and referral plans. medication usage, Demonstrated understanding of instructions, follow-up care, medications, Prescriptions given X 3. 10:30 Patient left the ED. kc6 Signatures: Dispatcher [employer] EDMS Tay Key MD MD cha [place], MyKena mw2 Jennifer Chavez RN RN kd3 Sherley Nguyen RN RN vc1 María Gay RN RN aa9 Campbell, Kaitlyn, RN RN kc6 Jassi Sanchez MD MD rt Corrections: (The following items were deleted from the chart) 05:12 04:43 Missed attempt(s): 20 gauge in right antecubital area. Bleeding controlled, band aa9 aid applied, catheter tip intact. aa9
[2022-04-03] MEDS ORDERED: THIAMINE 200 MG/2 ML INJ ONE (07:53)
[2022-04-03] MEDS ORDERED: PANTOPRAZOLE 40 MG INJ ONE (07:53)
[2022-04-03] MEDS ORDERED: MULTIVITAMINS INJ 10 ML, THIAMINE HCL 100 MG, FOLIC ACID 1 MG in NA CHLORIDE 0.9% 1,000 ML IV ONE (08:00)
--- NOTE | 2022-04-03 09:07 | RAD REPORT ---
EXAM DESCRIPTION: CTAbdomen Pelvis W Contrast - 04/03/2022 8:44 am CLINICAL HISTORY: Abdominal pain. Abdominal pain, acute, nonlocalized COMPARISON: No comparisons TECHNIQUE: Biphasic CT imaging of the abdomen and pelvis was performed with 100 ml non-ionic IV cont rast. All CT scans are performed using dose optimization technique as appropriate and may include automated exposure control or mA/KV adjustment according to patient size. FINDINGS: The lung bases are clear.Small hiatal hernia. Diffuse fatty liver. The spleen, pancreas, adrenal glands and kidneys are within normal range. No bowel obstruction, free air, free fluid or abscess. Moderate stool is present throughout the colon . The appendix is normal. No evidence of significant lymphadenopathy. No suspicious bony findings. IMPRESSION: No acute intra-abdominal or pelvic finding. Diffuse fatty liver.
[2022-04-03 10:59] VITALS: TEMP 98
[2022-04-03 11:00] VITALS: BP 105/93; O2SAT 96
--- NOTE | 2022-04-05 19:19 | EKG ---
Test Date: 2022-04-03 Test Time: 05:02:25 Sawmill Worker: ZITA MEASUREMENT RESULTS: Intervals: Rate: 98 NE: 142 QRSD: 94 QT: 392 QTc: 500 [place]: P: -2 NE: 142 QRS: 28 T: 110 INTERPRETIVE STATEMENTS: Normal sinus rhythm ST & T wave abnormality, consider lateral ischemia Prolonged QT Abnormal ECG Compared to ECG 03/04/2022 21:34:55 ST (T wave) deviation now present Possible ischemia now present Prolonged QT interval now present Myocardial infarct finding no longer present Electronically Signed On 04-05-22 19:11:11 STAFFING COORDINATOR by Gunnar Oliveira
[2022-04-07] MEDS ORDERED: METOPROLOL TAR 25 MG TAB ONE (05:39)
== END 2022-04-03 10:30 | disposition home or self-care (01) ==
LOC: ER 02:45
DX: F10.129 Alcohol abuse with intoxication, unspecified (principal); F31.9 Bipolar disorder, unspecified; K29.00 Acute gastritis without bleeding
CPT/HCPCS: 93005; 85025; 36415; 80320; 84484; 83690; 80053; 74177; 99284; Q9967; J3411 ×2; C9113; J7030 ×2

== ENCOUNTER 2022-06-02 05:09 | Emergency (ER) | payer OTHER ==
--- OUTSIDE RECORDS SUMMARY | 2022-06-02 05:32 | XMS REPORT | Continuity of Care Document ---
:1970 Author Organization [facility] [place] t Address [address] [place] [address] Care Team Providers Name Role Phone Asked, No Pcp Primary Care Physician Unavailable Indra Moura Attending Clinician Unavailable Fernie Pierce Attending Clinician Unavailable Blanquita Loja Attending Clinician Unavailable Debbie Devine Attending Clinician Unavailable Avtar MUÑOZ Attending Clinician Unavailable Avtar Pierce Attending Clinician Melchor Sanches MD Attending Clinician Dianne Morris MDHDennis Attending Clinician DIANNE MORRISHDennis Attending Clinician Unavailable Doctor Unassigned, Smolan Attending Clinician Unavailable Anselmo Zuniga DO Attending [...] Number Effective Date Expiration Date Umm jauregui [facility] [id number] 2021 00:00:00 MEDICARE PART A [id number] 2017 \\T\\ B 00:00:00 [employer] [id number] 2021 MEDICARE ADVANTAGE 00:00:00 Problems Condition Condition [...] 2-16 it y of on on 00:00: [place] [facility] Atypical Atypical Disease Active Unive rs chest pain chest pain 2-16 it y of 00:00: [place] 00 Medical [facility] Alcohol Alcohol Disease Active Univers withdrawal withdrawal 2-15 it y of 00:00: [place] 00 Medical Branch 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 Depression Depression Disease Recurre Univers nce 2-17 ity of 00:00: [place] [facility] Acute Acute Disease Active Univers respirator respirator 2-17 it y of y failure [place] failure [place] [facility] Tobacco Tobacco Disease Active Univers abuse abuse 2-17 ity of disorder disorder 00:00: [place] [facility] Suicidal Suicidal Disease Active Unive rs ideation ideation - ity of 00:00: [place] [facility] Allergies, Adverse Reactions, Alerts Allergy Allergy Status Severity Reaction(s) Onset Inactive Treating Comm ents Source Name Type Date Date Clinician NO KNOWN Drug Active Univers ALLERGIE Class ity of S [facility] Social History Social Habit Start Date Stop Date Quantity Comments Source History of Chews Tobacco [place] of tobacco use [facility] Exposure to 2021-11-28 2021-12-08 Not sure [facility] SARS-CoV-2 00:00:00 21:20:00 [facility] [place] Tobacco use and 2019-06-01 2019-06-01 User of smokeless Un iversity of exposure 00:00:00 00:00:00 tobacco [facility] Alcohol intake 2015-10-18 2015-10-[address] [facility] [place] 00:00:00 00:00:00 of alcohol (finding) Alcohol Comment 2015-10-18 2015-10-18 case a day some [facility] 00:00:00 00:00:00 days Sex Ass[birth year] [facility] 00:00:00 00:00:00 Smoking Status Start Date Stop Date Source Ex-smoker 2019-06-01 00:00:00 2019-06-01 00:00:00 [facility] Smokes tobacco daily 2015-10-18 00:00:00 [facility] Medications Ordered Filled Start Stop Current Ordering [...] as mg 00 :00 dose, On Medical [place] [facility] 12/08/21 at 2300, Routine atorvastati Yes [...] by ity of tablet 00:00: mouth at [place] [address] bedtime. Medical Branch lamoTRIgine 2020-0 Yes 100mg Take 100 U nivers 100 mg 9-27 mg by ity of tablet 00:00: mouth at [place] [address] bedtime. Medical Branch lamoTRIgine 2020-0 Yes 100mg Take 100 U nivers 100 mg 9-27 mg by ity of tablet 00:00: mouth at [place] 00 bedtime. Medical Branch lamoTRIgine 2020-0 Yes 100mg Take 100 U nivers 100 mg 9-27 mg by ity of tablet 00:00: mouth at [place] [address] bedtime. Medical Branch lamoTRIgine 2020-0 Yes 100mg Take 100 U nivers 100 mg 9-27 mg by ity of tablet 00:00: mouth at [place] [address] bedtime. Medical Branch lamoTRIgine 2020-0 Yes 100mg [...] Branch daily. foLIC acid 2020-0 2020- No [id number] 1mg Take 1 Univers 1 mg tablet 2-18 03-20 tablet by it y of 00:00: 04:59 mouth [place] 00 :00 daily for Medical 30 days. Branch thiamine 2020-0 2020- No [id number] 100mg Take 1 Univers 100 mg 2-18 03-20 tablet by ity of tablet 00:00: 04:59 mouth [place] 00 :00 daily for Medical 30 days. Branch foLIC acid 2020-0 2020- No [id number] 1mg Take 1 Univers 1 mg tablet 2-18 03-20 tablet by it y of 00:00: 04:59 mouth [place] 00 :00 daily for Medical 30 days. Branch thiamine 2019-0 2020- No [id number] 100mg Take 1 Univers 100 mg 2-18 03-20 tablet by ity of tablet 00:00: 04:59 mouth [place] 00 :00 daily for Medical 30 days. [place] foLIC acid 2020-0 2020- No [id number] 1mg Take 1 Univers 1 mg tablet 2-18 03-20 tablet by it y of 00:00: 04:59 mouth [place] 00 :00 daily for Medical 30 days. [place] thiamine 2019-0 2020- No [id number] 100mg Take 1 Univers 100 mg 2-18 03-20 tablet by ity of tablet 00:00: 04:59 mouth [place] 00 :00 daily for Medical 30 days. [place] foLIC acid 2019-0 2020- No [id number] 1mg Take 1 Univers 1 mg tablet 2-18 03-20 tablet by it y of 00:00: 04:59 mouth [place] 00 :00 daily for Medical 30 days. [place] thiamine 2019-0 2020- No [id number] 100mg Take 1 Univers 100 mg 2-18 03-20 tablet by ity of tablet 00:00: 04:59 mouth [place] 00 :00 daily for Medical 30 days. [place] foLIC acid 2019-0 2020- No [id number] 1mg Take 1 Univers 1 mg tablet 2-18 03-20 tablet by it y of 00:00: 04:59 mouth [place] 00 :00 daily for Medical 30 days. [place] thiamine 2019-0 2020- No [id number] 100mg Take 1 Univers 100 mg 2-18 03-20 tablet by ity of tablet 00:00: 04:59 mouth [place] 00 :00 daily for Medical 30 days. [place] foLIC acid 2019-0 2020- No [id number] 1mg Take 1 Univers 1 mg tablet 2-18 03-20 tablet by it y of 00:00: 04:59 mouth [place] 00 :00 daily for Medical 30 days. [place] thiamine 2019-0 2020- No [id number] 100mg Take 1 Univers 100 mg 2-18 03-20 tablet by ity of tablet 00:00: 04:59 mouth [place] 00 :00 daily for Medical 30 days. [place] QUEtiapine 0 2020- No 300mg Take 300 U nivers (SEROQUEL) 2-17 02-17 mg by ity of 300 mg 22:43: 00:00 mouth [place] tablet 15 :00 every Medical evening. [place] hydralAZINE 2019-0 Yes 10mg 10 mg, Univ [...] mg 18:59: Q4HPRN, [place] 52 Starting Medical [facility] Branch 07/04/19 at 1259, Until Discontinu ed, Routine, Pain (scale 7-10) lisinopril 2019-0 Yes 10mg 10 mg, Unive rs (PRINIVIL,Z 2-17 Oral, ity of ESTRIL) 18:30: DAILY, [place] tablet 10 00 First dose Medi johnson mg on [facility] Branch 07/04/19 at 1230, Until Discontinu ed, Routine LORazepam 1 2019-0 Yes [id number] 1mg Take 1 Univers mg tablet 2-17 tablet by ity o f 00:00: mouth 3 [place] 00 (three) Medical times Branch daily as needed for Anxiety or Agitation. traMADol 50 2020-0 Yes [id number] 50mg Take 1 Univers mg tablet 2-17 [id number] tablet by ity of 00:00: mouth [place] 00 every 6 Medical (six) Branch hours as needed for Pain (scale 4-6). LORazepam 1 2020-0 Yes [id number] 1mg Take 1 Univers mg tablet 2-17 tablet by ity o f 00:00: mouth 3 [place] 00 (three) Medical times Branch daily as needed for Anxiety or Agitation. traMADol 50 2020-0 Yes [id number] 50mg Take 1 Univers mg tablet 2-17 [id number] tablet by ity of 00:00: mouth [place] 00 every 6 Medical (six) Branch hours as needed for Pain (scale 4-6). LORazepam 1 2020-0 Yes [id number] 1mg Take 1 Univers mg tablet 2-17 tablet by ity o f 00:00: mouth 3 [place] 00 (three) Medical times Branch daily as needed for Anxiety or Agitation. traMADol 50 2020-0 Yes [id number] 50mg Take 1 Univers mg tablet 2-17 [id number] tablet by ity of 00:00: mouth [place] 00 every 6 Medical (six) Branch hours as needed for Pain (scale 4-6). LORazepam 1 2020-0 Yes [id number] 1mg Take 1 Univers mg tablet 2-17 tablet by ity o f 00:00: mouth 3 [place] 00 (three) Medical times Branch daily as needed for Anxiety or Agitation. traMADol 50 2020-0 Yes [id number] 50mg Take 1 Univers mg tablet 2-17 [id number] tablet by ity of 00:00: mouth [place] 00 every 6 Medical (six) Branch hours as needed for Pain (scale 4-6). LORazepam 1 2020-0 Yes [id number] 1mg Take 1 Univers mg tablet 2-17 tablet by ity o f 00:00: mouth 3 [place] 00 (three) Medical times Branch daily as needed for Anxiety or Agitation. traMADol 50 2020-0 Yes [id number] 50mg Take 1 Univers mg tablet 2-17 [id number] tablet by ity of 00:00: mouth [place] 00 every 6 Medical (six) Branch hours as needed for Pain (scale 4-6). LORazepam 1 2020-0 Yes [id number] 1mg Take 1 Univers mg tablet 2-17 tablet by ity o f 00:00: mouth 3 [place] 00 (three) Medical times Branch daily as needed for Anxiety or Agitation. traMADol 50 2020-0 Yes [id number] 50mg Take 1 Univers mg tablet 2-17 [id number] tablet by ity of 00:00: mouth [place] 00 every 6 Medical (six) Branch hours as needed for Pain (scale 4-6). LORazepam 1 2020-0 Yes [id number] 1mg Take 1 Univers mg tablet 2-17 tablet by ity o f 00:00: mouth 3 [place] 00 (three) Medical times Branch daily as needed for Anxiety or Agitation. traMADol 50 2020-0 Yes [id number] 50mg Take 1 Univers mg tablet 2-17 [id number] tablet by ity of 00:00: mouth [place] 00 every 6 Medical (six) Branch hours as needed for Pain (scale 4-6). LORazepam 1 2020-0 Yes [id number] 1mg Take 1 Univers mg tablet 2-17 tablet by ity o f 00:00: mouth 3 [place] 00 (three) Medical times Branch daily as needed for Anxiety or Agitation. traMADol 50 2020-0 Yes [id number] 50mg Take 1 Univers mg tablet 2-17 [id number] tablet by ity of 00:00: mouth [place] 00 every 6 Medical (six) Branch hours as needed for Pain (scale 4-6). LORazepam 1 2020-0 Yes [id number] 1mg Take 1 Univers mg tablet 2-17 tablet by ity o f 00:00: mouth 3 [place] 00 (three) Medical times Branch daily as needed for Anxiety or Agitation. traMADol 50 2020-0 Yes [id number] 50mg Take 1 Univers mg tablet 2-17 [id number] tablet by ity of 00:00: mouth [place] 00 every 6 Medical (six) Branch hours as needed for Pain (scale 4-6). LORazepam 1 2020-0 Yes [id number] 1mg Take 1 Univers mg tablet 2-17 tablet by ity o f 00:00: mouth 3 [place] 00 (three) Medical times Branch daily as needed for Anxiety or Agitation. traMADol 50 2020-0 Yes [id number] 50mg Take 1 Univers mg tablet 2-17 [id number] tablet by ity of 00:00: mouth [place] 00 every 6 Medical (six) Branch hours as needed for Pain (scale 4-6). LORazepam 1 2020-0 Yes [id number] 1mg Take 1 Univers mg tablet 2-17 tablet by ity o f 00:00: mouth 3 [place] 00 (three) Medical times Branch daily as needed for Anxiety or Agitation. traMADol 50 2020-0 Yes [id number] 50mg Take 1 Univers mg tablet 2-17 [id number] tablet by ity of 00:00: mouth [place] 00 every 6 Medical (six) Branch hours as needed for Pain (scale 4-6). LORazepam 1 2020-0 Yes [id number] 1mg Take 1 Univers mg tablet 2-17 tablet by ity o f 00:00: mouth 3 [place] 00 (three) Medical times Branch daily as needed for Anxiety or Agitation. traMADol 50 2020-0 Yes [id number] 50mg Take 1 Univers mg tablet 2-17 [id number] tablet by ity of 00:00: mouth [place] 00 every 6 Medical (six) Branch hours as needed for Pain (scale 4-6). LORazepam 1 2019-0 Yes [id number] 1mg Take 1 Univers mg tablet 2-17 tablet by ity o f 00:00: mouth 3 [place] 00 (three) Medical times Branch daily as needed for Anxiety or Agitation. traMADol 50 2019-0 Yes [id number] 50mg Take 1 Univers mg tablet 2-17 [id number] tablet by ity of 00:00: mouth [place] 00 every 6 Medical (six) Branch hours as needed for Pain (scale 4-6). LORazepam 1 2019-0 Yes [id number] 1mg Take 1 Univers mg tablet 2-17 tablet by ity o f 00:00: mouth 3 [place] 00 (three) Medical times Branch daily as needed for Anxiety or Agitation. traMADol 50 2019-0 Yes [id number] 50mg Take 1 Univers mg tablet 2- [id number] tablet by ity of 00:00: mouth [place] 00 every 6 Medical (six) Branch hours as needed for Pain (scale 4-6). LORazepam 1 2019- No [id number] 1mg Take 1 Univers mg tablet 2-03 03- tablet by ity of 00:00: 00:00 mouth 3 [place] 00 :00 (three) Medical times Branch daily as needed for Anxiety or Agitation. traMADol 50 2019- No [id number] 50mg Take 1 Univers mg tablet 2-02-20 [id number] tablet by it y of 00:00: 00:00 mouth [place] 00 :00 every 6 Medical (six) Branch hours as needed for Pain (scale 4-6). LORazepam 1 2019- No [id number] 1mg Take 1 Univers mg tablet 2-17 - tablet by ity of 00:00: 00:00 mouth 3 [place] 00 :00 (three) Medical times Branch daily as needed for Anxiety or Agitation. traMADol 50 0 2020- No [id number] 50mg Take 1 Univers mg tablet 2-17 - [id number] tablet by it y of 00:00: 00:00 mouth [place] 00 :00 every 6 Medical (six) Branch hours as needed for Pain (scale 4-6). lisinopril 2019- No [id number] 20mg Take 1 Univers 20 mg 2-17 -19 tablet by ity of tablet 00:00: 04:59 mouth [place] 00 :00 daily for Medical 30 days. [place]e lisinopril 2020-0 2020- No [id number] 20mg Take 1 Univers 20 mg 2-17 03-19 tablet by ity of tablet 00:00: 04:59 mouth [place] 00 :00 daily for Medical 30 days. Goode lisinopril 2020-0 2020- No [id number] 20mg Take 1 Univers 20 mg 2-17 03-19 tablet by ity of tablet 00:00: 04:59 mouth [place] 00 :00 daily for Medical 30 days. Goode lisinopril 2020-0 2020- No [id number] 20mg Take 1 Univers 20 mg 2-17 -19 tablet by ity of tablet 00:00: 04:59 mouth [place] 00 :00 daily for Medical 30 days. Goode lisinopril 2020-0 2020- No [id number] 20mg Take 1 Univers 20 mg 2-17 03-19 tablet by ity of tablet 00:00: 04:59 mouth [place] 00 :00 daily for Medical 30 days. Goode lisinopril 2020-0 2020- No [id number] 20mg Take 1 Univers 20 mg 2-17 -19 tablet by ity of tablet 00:00: 04:59 mouth [place] 00 :00 daily for Medical 30 days. [place] KCL 2020-0 2020- No 40meq 40 mEq, Univers (KLOR-CON 2-16 02-16 Oral, ity of M20) tablet 23:30: 23:12 ONCE, 1 [place] 40 mEq 00 :00 dose, [facility] 07/03/19 at Branch 1730, Routine enoxaparin 2020-0 Yes 40mg 40 mg, Unive rs (LOVENOX) 2-16 Subcutaneo ity of injection 15:00: us, DAILY, [place] 40 mg 00 First dose Medical on [facility] 07/03/19 at 0900, Until Discontinu ed, Routine thiamine 2020-0 Yes 100mg 100 mg, Unive rs (VITAMIN 2-16 Oral, ity of B1) tablet 15:00: DAILY, [place] 100 mg 00 First dose Medical on [facility] 07/03/19 at 0900, Until Discontinu ed, Routine thiamine 2020-0 Yes IV Univers (VITAMIN 2-16 Infusion, ity of B1) 100 mg, 15:00: at 125 [place] foLIC acid 00 mL/hr, Medical (FOLATE) 1 DAILY, Branch mg, First dose multivitami on [facility] adult 07/03/19 at (INFUVITE 0900, ADULT) Until 3,300 unit- Discontinu 150 mcg/10 ed, 1,000 mL 10 mL in mL NaCl 0.45% (1/2NS) IV Solution aspirin 2020-0 Yes 81mg 81 mg, Univers chewable 2-16 Oral, ity of tablet 81 15:00: DAILY, [place] mg 00 First dose Medical on [facility] 07/03/19 at 0900, Until Discontinu ed, Routine foLIC acid 2020-0 Yes 1mg 1 mg, Univer s (FOLATE) 2-16 Oral, ity of tablet 1 mg 15:00: DAILY, [place] 00 First dose Medical on [facility] 07/03/19 at 0900, Until Discontinu ed, Routine LORazepam 2020-0 Yes 1mg 1 mg, Slow Un luis alfredo (ATIVAN) 2-16 IV Push, ity of injection 1 03:05: Q4HPRN, [place] mg 01 Starting Medical [facility] 07/02/19 at 2105, Until Discontinu ed, Routine, Anxiety, Agitation, Sedation mirtazapine 2020-0 Yes 30mg 30 mg, Univ ers (REMERON) 2-16 Oral, QHS, ity of tablet 30 03:00: First dose [place] mg 00 on [facility] 07/02/19 at Branch 2100, Until Discontinu ed, Routine atorvastati 2020-0 Yes 40mg 40 mg, Univ ers n (LIPITOR) 2-16 Oral, QHS, it y of tablet 40 03:00: First dose [place] mg 00 on [facility] 07/02/19 at Branch 2100, Until Discontinu ed, Routine metoprolol 2020-0 Yes 50mg 50 mg, Unive rs tartrate 2-16 Oral, BID, ity o f (LOPRESSOR) 02:00: First dose [place] tablet 50 00 on [facility] 07/02/19 at Branch 2000, Until Discontinu ed, Routine gabapentin 2020-0 Yes 600mg 600 mg, Uni vers (NEURONTIN) 2-16 Oral, TID, it y of capsule 600 02:00: First dose [place] mg 00 on [facility] 07/02/19 at Branch 2000, Until Discontinu [...] dose, Sat Medical 1,000 mg 07/02/19 at [facility] h 1515, IDA LORazepam 2019- 2020- No 1mg 1 mg, Univer s (ATIVAN) 07-02 Oral, ity of tablet 1 mg 21:15: 20:08 ONCE, 1 [place] 00 :00 dose, Sat Medical 07/02/19 at Branch 1515, IDA ondansetron 2019-0 Yes 4mg 4 mg, Slow Univers (ZOFRAN 07-02 IV Push, ity of (PF)) 21:11: Q6HPRN, [place] injection 4 50 Starting Medi johnson mg Sat Branch 07/02/19 at 1511, Until Discontinu ed, Routine, Nausea and Vomiting (N/V) morpHINE 2019-0 2020- No 2mg 2 mg, Slow Un luis alfredo injection 2 07-02 IV Push, ity of mg 21:11: 03:09 Q4HPN, [place] 40 :25 Starting Medical Sat Branch 07/02/19 [...] Medical evening. Branch aspirin 81 2020-0 Yes [id number] 81mg Take 1 U nivers mg chewable 1-01 tablet by ity of tablet 00:00: mouth [place] 00 daily. Medical Branch aspirin 81 2020-0 Yes [id number] 81mg Take 1 U nivers mg chewable 1-01 tablet by ity of tablet 00:00: mouth [place] 00 daily. Medical Branch aspirin 81 2020-0 Yes [id number] 81mg Take 1 U nivers mg chewable 1-01 tablet by ity of tablet 00:00: mouth [place] 00 daily. Medical Branch aspirin 81 2020-0 Yes [id number] 81mg Take 1 U nivers mg chewable 1-01 tablet by ity of tablet 00:00: mouth [place] 00 daily. Medical Branch aspirin 81 2020-0 Yes [id number] 81mg Take 1 U nivers mg chewable 1-01 tablet by ity of tablet 00:00: mouth [place] 00 daily. Medical Branch aspirin 81 2020-0 Yes [id number] 81mg Take 1 U nivers mg chewable 1-01 tablet by ity of tablet 00:00: mouth [place] 00 daily. Medical Branch aspirin 81 2020-0 Yes [id number] 81mg Take 1 U nivers mg chewable 1-01 tablet by ity of tablet 00:00: mouth [place] 00 daily. Medical Branch aspirin 81 2020-0 Yes [id number] 81mg Take 1 U nivers mg chewable 1-01 tablet by ity of tablet 00:00: mouth [place] 00 daily. Medical Branch aspirin 81 2020-0 Yes [id number] 81mg Take 1 U nivers mg chewable 1-01 tablet by ity of tablet 00:00: mouth [place] 00 daily. Medical Branch aspirin 81 2019- No [id number] 81mg Take 1 Univers mg chewable 05-18 tablet by it y of tablet 00:00: 00:00 mouth [place] 00 :00 daily. Medical Branch lisinopril 2019- No [id number] 2.5mg Take 1 Univers 2.5 mg 05-18 tablet by ity of tablet 00:00: 00:00 mouth [place] 00 :00 daily. Medical Branch lisinopril 2019- No [id number] 2.5mg Take 1 Univers 2.5 mg 05-18 tablet by ity of tablet 00:00: 00:00 mouth [place] 00 :00 daily. Medical Branch atorvastati 2018-05 Yes [id number] 40mg Take 1 Univers n 40 mg 2-31 tablet by ity of tablet 00:00: mouth at [place] 00 bedtime. Medical Branch nitroglycer 2018-[id number] 1 Univers in 0.3 mg 2-31 tablet ity of sublingual 00:00: under the [place] tablet 00 tongue Medical every 5 Branch (five) minutes as needed for Chest pain. metoprolol 2018-05 Yes [id number] 50mg Take 1 U nivers tartrate 50 2-31 tablet by ity of mg tablet 00:00: mouth 2 [place] (two) Medical times Branch daily. atorvastati 2018-05 Yes [id number] 40mg Take 1 Univers n 40 mg 2-31 tablet by ity of tablet 00:00: mouth at [place] 00 bedtime. Medical Branch nitroglycer 2018-[id number] 1 Univers in 0.3 mg 2-31 tablet ity of sublingual 00:00: under the [place] tablet 00 tongue Medical every 5 Branch (five) minutes as needed for Chest pain. metoprolol 2018-05 Yes [id number] 50mg Take 1 U nivers tartrate 50 2-31 tablet by ity of mg tablet 00:00: mouth 2 [place] 00 (two) Medical times Branch daily. atorvastati 2018-05 Yes [id number] 40mg Take 1 Univers n 40 mg 2-31 tablet by ity of tablet 00:00: mouth at [place] [address] bedtime. Medical Branch nitroglycer 2018-[id number] 1 Univers in 0.3 mg 2-31 tablet ity of sublingual 00:00: under the [place] tablet 00 tongue Medical every 5 Branch (five) minutes as needed for Chest pain. metoprolol 2018-05 Yes [id number] 50mg Take 1 U nivers tartrate 50 2-31 tablet by ity of mg tablet 00:00: mouth 2 (two) Medical times Branch daily. atorvastati 2018-05 Yes [id number] 40mg Take 1 Univers n 40 mg 2-31 tablet by ity of tablet 00:00: mouth at [place] bedtime. Medical Branch nitroglycer 2018-[id number] 1 Univers in 0.3 mg 2-31 tablet ity of sublingual 00:00: under the [place] tablet 00 tongue Medical every 5 Branch (five) minutes as needed for Chest pain. metoprolol 2018-05 Yes [id number] 50mg Take 1 U nivers tartrate 50 2-31 tablet by ity of mg tablet 00:00: mouth 2 (two) Medical times Branch daily. atorvastati 2018-05 Yes [id number] 40mg Take 1 Univers n 40 mg 2-31 tablet by ity of tablet 00:00: mouth at [place] bedtime. Medical Branch nitroglycer 2018-[id number] 1 Univers in 0.3 mg 2-31 tablet ity of sublingual 00:00: under the [place] tablet 00 tongue Medical every 5 Branch (five) minutes as needed for Chest pain. metoprolol 2018-05 Yes [id number] 50mg Take 1 U nivers tartrate 50 2-31 tablet by ity of mg tablet 00:00: mouth 2 [place] (two) Medical times Branch daily. atorvastati 2018-05 Yes [id number] 40mg Take 1 Univers n 40 mg 2-31 tablet by ity of tablet 00:00: mouth at [place] [address] bedtime. Medical Branch nitroglycer 2018-[id number] 1 Univers in 0.3 mg 2-31 tablet ity of sublingual 00:00: under the [place] tablet 00 tongue Medical every 5 Branch (five) minutes as needed for Chest pain. nitroglycer 2018-[id number] 1 Univers in 0.3 mg 2-31 tablet ity of sublingual 00:00: under the [place] tablet 00 tongue Medical every 5 Branch (five) minutes as needed for Chest pain. oxazepam 15 2018-05 Yes [id number] 15mg Take 1 Univers mg capsule 2-31 capsule by ity of 00:00: mouth [place] 00 every 4 Medical (four) Branch hours as needed for Anxiety. PRN nitroglycer 2018-[id number] 1 Univers in 0.3 mg 2-31 tablet ity of sublingual 00:00: under the [place] tablet 00 tongue Medical every 5 Branch (five) minutes as needed for Chest pain. nitroglycer 2018-[id number] 1 Univers in 0.3 mg 2-31 tablet ity of sublingual 00:00: under the [place] tablet 00 tongue Medical every 5 Branch (five) minutes as needed for Chest pain. metoprolol 2018-05 Yes [id number] 50mg Take 1 U nivers tartrate 50 2-31 tablet by ity of mg tablet 00:00: mouth 00 (two) Medical times Branch daily. nitroglycer 2018-[id number] 1 Univers in 0.3 mg 2-31 tablet ity of sublingual 00:00: under the [place] tablet 00 tongue Medical every 5 Branch (five) minutes as needed for Chest pain. nitroglycer 2018-[id number] 1 Univers in 0.3 mg 2-31 tablet ity of sublingual 00:00: under the [place] tablet 00 tongue Medical every 5 Branch (five) minutes as needed for Chest pain. nitroglycer 2018-[id number] 1 Univers in 0.3 mg 2-31 tablet ity of sublingual 00:00: under the [place] tablet 00 tongue Medical every 5 Branch (five) minutes as needed for Chest pain. nitroglycer 2018-[id number] 1 Univers in 0.3 mg 2-31 tablet ity of sublingual 00:00: under the [place] tablet 00 tongue Medical every 5 Branch (five) minutes as needed for Chest pain. nitroglycer 2018-[id number] 1 Univers in 0.3 mg 2-31 tablet ity of sublingual 00:00: under the [place] tablet 00 tongue Medical every 5 Branch (five) minutes as needed for Chest pain. atorvastati 2018-05 Yes [id number] 40mg Take 1 Univers n 40 mg 2-31 tablet by ity of tablet 00:00: mouth at [place] 00 bedtime. Medical Branch nitroglycer 2018-[id number] 1 Univers in 0.3 mg 2-31 tablet ity of sublingual 00:00: under the [place] tablet 00 tongue Medical every 5 Branch (five) minutes as needed for Chest pain. oxazepam 2018-05 Yes [id number] 15mg Take 1 Univers mg capsule 2-31 capsule by ity of 00:00: mouth [place] 00 every 4 Medical (four) Branch hours as needed for Anxiety. PRN metoprolol 2018-05 Yes [id number] 50mg Take 1 U nivers tartrate 50 2-31 tablet by ity of mg tablet 00:00: mouth 2 [place] 00 (two) Medical times Branch daily. atorvastati 2018-05 Yes [id number] 40mg Take 1 Univers n 40 mg 2-31 tablet by ity of tablet 00:00: mouth at [place] 00 bedtime. Medical Branch nitroglycer 2018-[id number] 1 Univers in 0.3 mg 2-31 tablet ity of sublingual 00:00: under the [place] tablet 00 tongue Medical every 5 Branch (five) minutes as needed for Chest pain. oxazepam 2018-05 Yes [id number] 15mg Take 1 Univers mg capsule 2-31 capsule by ity of 00:00: mouth [place] 00 every 4 Medical (four) Branch hours as needed for Anxiety. PRN metoprolol 2018-05 Yes [id number] 50mg Take 1 U nivers tartrate 50 2-31 tablet by ity of mg tablet 00:00: mouth 2 [place] 00 (two) Medical times Branch daily. atorvastati 2018-05 Yes [id number] 40mg Take 1 Univers n 40 mg 2-31 tablet by ity of tablet 00:00: mouth at [place] 00 bedtime. Medical Branch nitroglycer 2018-[id number] 1 Univers in 0.3 mg 2-31 tablet ity of sublingual 00:00: under the [place] tablet 00 tongue Medical every 5 Branch (five) minutes as needed for Chest pain. metoprolol 2018-05 Yes [id number] 50mg Take 1 U nivers tartrate 50 2-31 tablet by ity of mg tablet 00:00: mouth 2 [place] 00 (two) Medical times Branch daily. nitroglycer 2018-05- No [id number] .3mg Place 1 Univers in 0.3 mg 02-20 tablet ity of sublingual 00:00: 00:00 under the [place] tablet 00 :00 tongue Medical every 5 Branch (five) minutes as needed for Chest pain. nitroglycer 2018-05- No [id number] .3mg Place 1 Univers in 0.3 mg 02-20 tablet ity of sublingual 00:00: 00:00 under the [place] tablet 00 :00 tongue Medical every 5 Branch (five) minutes as needed for Chest pain. atorvastati 2018-05- No [id number] 40mg Take 1 Univers n 40 mg 08-16 tablet by ity of tablet 00:00: 00:00 mouth at [place] 00 :00 bedtime. Medical Branch metoprolol 2018-05- No [id number] 50mg Take 1 Univers tartrate 50 08-16 tablet by it y of mg tablet 00:00: 00:00 [place] :[place] (two) Medical times Branch daily. oxazepam 15 2018-05 2020- No [id number] 15mg Take 1 Univers mg capsule 07-04 capsule by it y of 00:00: 00:00 mouth [place] 00 :00 every 4 Medical (four) Branch hours as needed for Anxiety. PRN Vital Signs Vital Name Observation Time Observation Value Comments Source Systolic blood 2021-12-09 02:22:00 119 mm[Hg] [facility] [place] [facility] pressure [facility] Diastolic blood 2021-12-09 02:22:00 81 mm[Hg] Unive [facility] Heart rate 2021-12-09 02:22:00 94 /min [facility] Body temperature 2021-12-09 02:22:00 36.67 Kaylee [facility] Respiratory rate 2021-12-09 02:22:00 18 /min [facility] Body height 2021-12-09 02:22:00 177.8 cm [facility] Body weight 2021-12-09 02:22:00 79.379 kg [facility] Branch BMI 2021-12-09 02:22:00 25.11 kg/m2 Universi ty [facility] [place] [facility] Oxygen saturation in 2021-12-09 02:22:00 99 /min University of Arterial blood by [facility]son Pulse oximetry Branch Systolic blood 2020-02-21 13:56:00 130 mm[Hg] Univer sity of pressure [place] [facility] Diastolic blood 2020-02-21 13:56:00 85 mm[Hg] Unive rsity of pressure [place] [facility] Heart rate 2020-02-21 13:55:00 68 /min [facility] [place] [facility] Respiratory rate 2020-02-21 13:55:00 19 /min Univ ersity [facility] [place] [facility] Body height 2020-02-21 13:55:00 177.8 cm [facility] [place] [facility] Body weight 2020-02-21 13:55:00 96.117 kg [facility] [place] [facility] BMI 2020-02-21 13:55:00 30.40 kg/m2 [facility] [place] [facility] Oxygen saturation in 2020-02-21 13:55:00 98 /min University of Arterial blood by [facility] Pulse oximetry Branch Systolic blood 2019-11-18 14:41:00 147 mm[Hg] Univer sity of pressure [place] [facility] Diastolic blood 2019-11-18 14:41:00 88 mm[Hg] Unive rsity of pressure [place] [facility] Heart rate 2019-11-18 14:41:00 103 /min [facility]i [facility] [place] [facility] Body temperature 2019-11-18 14:41:00 37.17 Kaylee Univ [facility] [place] [facility] Respiratory rate 2019-11-18 14:41:00 18 /min Univ ersity [facility] [place] [facility] Body height 2019-11-18 14:41:00 177.8 cm [facility] [place] [facility] Body weight 2019-11-18 14:41:00 106.595 kg [facility] [place] [facility] BMI 2019-11-18 14:41:00 33.72 kg/m2 [facility] [place] [facility] Oxygen saturation in 2019-11-18 14:41:00 98 /min University of Arterial blood by [facility]son Pulse oximetry Branch Systolic blood 2019-11-18 14:41:00 147 mm[Hg] Univer sity of pressure [place] [facility] Diastolic blood 2019-11-18 14:41:00 88 mm[Hg] Unive rsity of pressure [place] [facility] Heart rate 2019-11-18 14:41:00 103 /min [facility] [place] [facility] Body temperature 2019-11-18 14:41:00 37.17 Kaylee Univ [facility] [place] [facility] Respiratory rate 2019-11-18 14:41:00 18 /min Univ ersity [facility] [place] [facility] Body height 2019-11-18 14:41:00 177.8 cm [facility] [place] [facility] Body weight 2019-11-18 14:41:00 106.595 kg [facility] [place] [facility] BMI 2019-11-18 14:41:00 33.72 kg/m2 [facility] [place] [facility] Oxygen saturation in 2019-11-18 14:41:00 98 /min University of Arterial blood by [facility] Pulse oximetry Branch Systolic blood 2019-07-10 23:35:00 153 mm[Hg] Univer sity of pressure [place] [facility] Diastolic blood 2019-07-10 23:35:00 83 mm[Hg] Unive rsity of pressure [place] [facility] Heart rate 2019-07-10 23:35:00 90 /min [facility] [place] [facility] Body temperature 2019-07-10 23:35:00 36.67 Kaylee Univ [facility] [place] [facility] Respiratory rate 2019-07-10 23:35:00 18 /min Univ ers[facility] [place] [facility] Body height 2019-07-10 23:35:00 177.8 cm [facility] [place] [facility] Body weight 2019-07-10 23:35:00 117.935 kg [facility] [place] [facility] BMI 2019-07-10 23:35:00 37.31 kg/m2 [facility] [place] [facility] Oxygen saturation in 2019-07-10 23:35:00 96 /min University of Arterial blood by [facility]son Pulse oximetry Branch Systolic blood 2019-07-10 23:35:00 153 mm[Hg] Univer sity of pressure [place] [facility] Diastolic blood 2019-07-10 23:35:00 83 mm[Hg] Unive rsity of pressure [place] [facility] Heart rate 2019-07-10 23:35:00 90 /min [facility]i [facility] [place] [facility] Body temperature 2019-07-10 23:35:00 36.67 Kaylee Univ [facility] [place] [facility] Respiratory rate 2019-07-10 23:35:00 18 /min Univ ersity [facility] [place] [facility] Body height 2019-07-10 23:35:00 177.8 cm [facility] [place] [facility] Body weight 2019-07-10 23:35:00 117.935 kg [facility] [place] [facility] BMI 2019-07-10 23:35:00 37.31 kg/m2 [facility] [place] [facility] Oxygen saturation in 2019-07-10 23:35:00 96 /min University of Arterial blood by [place] Moni johnson Pulse oximetry Branch Systolic blood 2019-07-04 21:00:00 158 mm[Hg] Univer sity of pressure [place] [facility] Diastolic blood 2019-07-04 21:00:00 106 mm[Hg] Unive rsity of pressure [place] [facility] Heart rate 2019-07-04 21:00:00 98 /min [facility] [place] [facility] Body temperature 2019-07-04 21:00:00 36.67 Kaylee [facility] [place] [facility] Respiratory rate 2019-07-04 21:00:00 20 /min Univ [facility] [place] [facility] Oxygen saturation in 2019-07-04 21:00:00 99 /min University of Arterial blood by [place] Moni johnson Pulse oximetry Branch Body height 2019-07-02 21:10:00 177.8 cm [facility] [place] [facility] Body weight 2019-07-02 21:10:00 117.935 kg [facility] [place] [facility] BMI 2019-07-02 21:10:00 37.31 kg/m2 [facility] [place] [facility] Systolic blood 2019-07-04 21:00:00 158 mm[Hg] Univer sity of pressure [place] [facility] Diastolic blood 2019-07-04 21:00:00 106 mm[Hg] Unive rsity of pressure [place] [facility] Heart rate 2019-07-04 21:00:00 98 /min [facility] [place] [facility] Body temperature 2019-07-04 21:00:00 36.67 Kaylee [facility] [place] [facility] Respiratory rate 2019-07-04 21:00:00 20 /min Univ [facility] [place] [facility] Oxygen saturation in 2019-07-04 21:00:00 99 /min University of Arterial blood by [place] Moni johnson Pulse oximetry Branch Body height 2019-07-02 21:10:00 177.8 cm [facility] [place] [facility] Body weight 2019-07-02 21:10:00 117.935 kg [facility] [place] [facility] BMI 2019-07-02 21:10:00 37.31 kg/m2 [facility] [place] [facility] Systolic blood 2019-06-01 19:53:00 130 mm[Hg] Univer sity of pressure [place] [facility] Diastolic blood 2019-06-01 19:53:00 90 mm[Hg] Unive rsity of pressure [facility] Heart rate 2019-06-01 19:53:00 78 /min Universi ty of [facility] Respiratory rate 2019-06-01 19:53:00 19 /min Univ ersity of [facility] Body height 2019-06-01 19:53:00 177.8 cm [facility]i ty [facility] [place] [facility] Goode Body weight 2019-06-01 19:53:00 122.154 kg [facility] [place] [facility] BMI 2019-06-01 19:53:00 38.64 kg/m2 Universi ty of [facility] Oxygen saturation in 2019-06-01 19:53:00 97 /min University of Arterial blood by [facility] Pulse oximetry Branch Systolic blood 2019-06-01 19:53:00 130 mm[Hg] Univer sity of pressure [facility] Diastolic blood 2019-06-01 19:53:00 90 mm[Hg] Unive rsity of pressure [place] [facility] Goode Heart rate 2019-06-01 19:53:00 78 /min [facility] [place] [facility] Respiratory rate 2019-06-01 19:53:00 19 /min Univ ersity of [facility] Body height 2019-06-01 19:53:00 177.8 cm [facility] [place] [facility] Body weight 2019-06-01 19:53:00 122.154 kg [facility] [place] [facility] BMI 2019-06-01 19:53:00 38.64 kg/m2 Universi ty of [facility] Oxygen saturation in 2019-06-01 19:53:00 97 /min University of Arterial blood by [facility] Pulse oximetry Branch Procedures Procedure Date / Time Performing Clinician Source Performed XR CHEST 1 VW 2021-12-09 02:40:45 Zaki Galvan [facility] LIPASE 2021-12-09 02:32:00 Zaki Galvan [facility] TROPONIN I 2021-12-09 02:32:00 Zaki Galvan [facility] COMP. METABOLIC PANEL 2021-12-09 02:32:00 Zaki Galvan [facility] ([id number]) Medical Branch CBC WITH DIFF 2021-12-09 02:32:00 Zaki Galvan [facility] PROTHROMBIN TIME / INR 2021-12-09 02:32:00 Zaki Galvan [facility] COVID-19 (ID NOW RAPID 2021-12-09 02:32:00 conradne [facility] TESTING) Medical Branch CONSENT/REFUSAL FOR 2021-12-09 02:17:21 Doctor Unassigned, No Un [facility] [place] DI[facility]NOS[facility] TREATMENT Name Medical Branch EXTERNAL PROVIDER - ADC 2020-02-08 05:01:00 Doctor Unassigned, N o [facility] CARDIOLOGY Name Medical Branch NOTICE OF PRIVACY 2019-11-18 14:36:16 Doctor Unassigned, No Univ [facility] PRACTICES Name Medical Branch CONSENT/REFUSAL FOR 2019-11-18 14:36:00 Doctor Unassigned, No Un [facility] [place] DIAGNOSIS AND TREATMENT Name Medical Branch NOTICE OF PRIVACY 2019-07-10 23:30:15 Doctor Unassigned, No Univ [facility] PRACTICES Name Medical Branch CONSENT/REFUSAL FOR 2019-07-10 23:29:51 Doctor Unassigned, No Un [facility] [place] DIAGNOSIS AND TREATMENT Name Medical Branch MAGNESIUM 2019-07-04 18:37:00 Geoffrey [facility] BASIC METABOLIC PANEL 2019-07-04 18:37[facility] K, CL, CO2, Medical Branch GLUCOSE, BUN, CREATININE, [place]) MAGNESIUM 2019-07-03 07:55:00 Geoffrey [facility] TROPONIN I 2019-07-03 07:55:00 Geoffrey [facility] BASIC METABOLIC PANEL 2019-07-03 07:55[facility] (NA, K, CL, CO2, Medical Branch GLUCOSE, BUN, CREATININE, [place]) CBC WITH DIFFERENTIAL 2019-07-03 07:55:00 Desean Hale [facility] TROPONIN I 2019-07-02 23:18:00 Geoffrey [facility] ADC / LCC - DRUG SCREEN 2019-07-02 19:50:00 Dwight Noel [facility] TRIAGE [facility] XR RIBS 3 VW LEFT 2019-07-02 18:57:39 Dwight Noel [facility] XR CHEST 1 VW 2019-07-02 18:46:06 Dwight Noel [facility] LIPASE 2019-07-02 18:14:00 Dwight Noel [facility] MAGNESIUM 2019-07-02 18:14:00 Bert Dwight [facility] TROPONIN I 2019-07-02 18:14:00 Bert Dwight [facility] HEPATIC FUNCTION PANEL 2019-07-02 18:14:00 Dwight Noel [facility] ([id number]) (ALB,T.PRO,BILI [facility] T,BU/BC,ALT,AST,ALK PHOS) BASIC METABOLIC PANEL 2019-07-02 18:14:00 Dwight Noel [facility] (NA, K, CL, CO2, Medical Branch GLUCOSE, BUN, CREATININE, [place]) ETHANOL 2019-07-02 18:14:00 Dwight Noel [facility] CBC WITH DIFFERENTIAL 2019-07-02 18:14[facility]00 [facility] PROTHROMBIN TIME / INR 2019-07-02 18:14:00 Dwight Nole [facility] ACTIVATED PARTIAL 2019-07-02 18:14:00 [facility] N-TERMINAL PRO-BNP 2019-07-02 18:14:00 Dwight Noel [facility] EKG-12 LEAD 2019-07-02 17:45:17 Dwight Noel [facility] Encounters Start End Encounter Admission Attending Care Care Encounter Source Date/Time Date/Time Type Type Clinicians Facility Department ID 2022-02-28 Outpatient [facility] [id number] [place] 06:34:54 [id number] [facility] 2022-02-27 Outpatient [facility] [id number] [place] 14:33:13 [id number] [facility] 2022-02-13 Outpatient Moura, STLMLC STLMLC Common 16:02:01 Indra [facility] 2022-01-24 Outpatient Moura, STLMLC STLMLC Common 10:37:00 Indra [facility] 2022-01-22 Outpatient Moura, STLMLC STLMLC Common 11:29:01 Indra [facility] 2021-08-16 Outpatient BAYTN SMITATN [id number] [place] 14:59:50 [id number] [facility] 2021-08-14 Outpatient MIDLANDTN SMITAN [id number] [place] 13:27:24 [id number] [facility] 2021-06-12 Outpatient Moura, STLMLC STLC Common 14:30:57 Indra [facility] 2021-06-12 Outpatient Moura, STLMLC STLMLC Common 14:25:40 Indra [id number] [facility] 2021-06-12 Outpatient Moura, STLMLC STLMLC Common 13:50:26 Indra [id number] [facility] 2021-06-12 Outpatient Moura, STLMLC STLMLC Common 13:25:25 Indra [id number] [facility] 2021-06-12 Outpatient Moura, STLMLC STLMLC Common 13:10:24 Indra [id number] [facility] 2021-06-12 Outpatient Moura, STLMLC STLMLC Common 12:58:21 Indra 78466 [facility] 2021-06-12 Outpatient Moura, STLMLC STLMLC Common 12:47:41 Indra [id number] [facility] 2021-06-12 Outpatient Moura, STLMLC STLMLC Common 12:27:06 Indra [id number] [facility] 2021-06-12 Outpatient Moura, STLMLC STLMLC [id number] Common 12:26:55 Indra [id number] [facility] 2021-06-12 Outpatient Moura, STLMLC STLMLC [id number] Common 12:26:34 Indra [id number] [facility] 2021-06-12 Outpatient Moura, STLMLC STLMLC [id number] Common 12:24:18 Indra [id number] [facility] 2021-06-12 Outpatient Moura, STLMLC STLMLC [id number] Common 12:22:57 Indra [id number] [facility] 2021-06-12 Outpatient Fernie Pierce STLMLC [facility] [id number] Common 11:41:54 Read [id number] [facility] 2021-06-12 Outpatient Millender, STLMLC STLC [id number] Common 11:36:22 Blanquita 05659 [facility] 2021-06-12 Outpatient Devine, STLMLC STLC [id number] Common 11:18:04 Debbie [id number] [facility] 2021-03-15 Emergency [facility] [id number] Univers 04:29:04 ity [facility] 2016-06-11 Inpatient C [facility] [id number] St. 15:30:00 [facility] 2021-12-08 2021-12-08 Emergency X Avtar MUÑOZ [facility] ERT [id number] Univers 21:17:00 22:10:00 ity [facility] 2021-12-08 2021-12-08 Emergency Avtar Muñoz [facility] [id number] Univers 21:17:00 22:10:00 Caryn TELLO [id number] i ty [facility] [id number] [facility] [id number] [place] [address] Branch 2021-04-26 2021-04-26 [facility] 1.2.840.114 [id number] Univers 00:00:00 00:00:00 Melchor TELLO [id number] ity of [id number] [phone] [place] [id number] [facility] 2020-08-01 2020-08-01 Refill [facility] 1.2.840.114 [id number] Univers 00:00:00 00:00:00 Qiangjun [place] [id number] [place]y [id number] [phone] [address] 2020-05-14 2020-05-14 Refill [facility] 1.2.840.114 [id number] Univers 00:00:00 00:00:00 Qiangjun [place] [id number] [id number] [phone] [address] 2020-02-21 2020-02-21 Office [facility] 1.2.840.114 [id number] Univers 08:44:09 09:23:32 Visit Dianne [place] [id number] [id number] [phone] [address] 2020-02-21 2020-02-21 [facility] [id number] Univers 09:00:00 09:00:00 SENDIL ity of [facility] 2020-02-08 2020-02-08 Telephone [facility] [id number] Univers 00:00:00 00:00:00 Juanpablojun [place] [id number] [id number] [phone] [address] 2020-02-08 2020-02-08 Orders Doctor MEEKS 1.2.840.114 [id number] Univers 00:00:00 00:00:00 Only Unassigned, DELRO[place] [id number] ity of [place] [facility] [id number] Akbar as [phone] [address] 2020-01-27 2020-01-27 Refill Baltazar, [facility] 1.2.840.114 [id number] Univers 00:00:00 00:00:00 Qiazuleima [place] [id number] [place]y [id number] [phone] Ia dic[address] 2020-01-10 2020-01-10 Telephone [facility], [facility] [id number] Univers 00:00:00 00:00:00 Qianguzma [place] [id number] [id number] [phone] [address] 2019-11-18 2019-11-18 Emergency Zuniga, [facility] [id number] [facility] 09:42:51 11:00:00 Anselmo [place] [id number] i ty [place] [id number] [phone] [address] 2019-11-18 2019-11-18 Emergency Zuniga, [facility] [id number] 09:42:51 11:00:00 Anselmo [place] [id number] [place] [id number] [place] [id number] [facility] 2019-10-23 2019-10-23 [facility], [facility] [id number] [facility] 00:00:00 00:00:00 Duaneurmilauzma [place] [id number] ity [id number] [phone] Ia dic[address] 2019-10-23 2019-10-23 Telephone [facility], [facility] [id number] 00:00:00 00:00:00 Qiazuleima [place] [id number] [place] [id number] Professio [phone] [address] 2019-09-21 2019-09-21 Telephone [facility], [facility] [id number] [facility] 00:00:00 00:00:00 Qiazuleima [place] [id number] [place]y [id number] [phone] [address] 2019-09-21 2019-09-21 Telephone [facility] [id number] 00:00:00 00:00:00 Qiangjun [place] [id number] [place] [id number] Professio [phone] [address] 2019-08-17 2019-08-17 Telemedici [facility] 1.2.840.114 [id number] [facility] 14:22:37 15:02:11 ne Visit Melchor [place] [id number] ity [id number] [phone] [address] 2019-08-17 2019-08-[facility] 1.2.840.114 [id number] 14:22:37 15:02:11 ne Visit Melchor [place] [id number] [place] [id number] Professio [phone] [address] 2019-08-17 2019-08-17 Outpatient R [facility] [id number] Univers 14:40:00 14:40:00 MELCHOR ity o f [facility] 2019-07-27 2019-07-27 [facility] [id number] [facility] 00:00:00 00:00:00 Melchor [place] [id number] [place]y [id number] [phone] [address] 2019-07-27 2019-07-27 [facility] [id number] 00:00:00 00:00:00 Qiangjun [place] [id number] [place] [id number] Professio [phone] [address] 2019-07-10 2019-07-10 Emergency Zuniga, [facility] [id number] [facility] 17:33:57 18:51:00 Anselmo Tello [id number] i ty [id number] [phone] [address] 2019-07-10 2019-07-10 Emergency Zuniga, [facility] [id number] 17:33:57 18:51:00 Anselmo T[place] [id number] [place] [id number] [place] [phone] [facility] 2019-07-10 2019-07-10 Orders Doctor JEANNA 1.2.840.114 [id number] Univers 00:00:00 00:00:00 Only Unassigned, DELROY [id number] ity of [place] [facility] 4.2.7.2.686 Akbar as [phone] [address] 2019-07-10 2019-07-10 Orders Doctor MEEKS 1.2.840.114 [id number] 00:00:00 00:00:00 Only Unassigned, [place] 350.1.13.10 [place] [facility] 4.2.7.2.686 [id number] [facility] 2019-07-08 2019-07-08 Telephone [facility] 1.2.840.114 [id number] [facility] 00:00:00 00:00:00 Chago [place] 350.1.13.10 i ty [id number] [phone] Ia dical [address] 2019-07-08 2019-07-08 Telephone [facility] 1.2.840.114 [id number] 00:00:00 00:00:00 Chago [place] [id number] [place] [id number] Professio [phone] [address] 2019-07-05 2019-07-05 Transition Tawana Franco 1.2.840.114 [id number] Univers 00:00:00 00:00:00 of Care Flroi Méndez [id number] it y of [place]2.[place].2.[place] [id number] [facility] 403 Branch 2019-07-05 2019-07-05 Transition Tawana Franco 1.2.840.114 [id number] 00:00:00 00:00:00 of Care Flori Méndez [id number] [place] [id number] [id number] 403 2019-07-02 2019-07-04 Inpatient X DESEAN [facility] [id number] Univers 11:42:40 18:46:00 ity of [facility] 2019-07-02 2019-07-04 [facility] 1.2.840.1 [id number] Univers 11:42:40 18:46:00 Encounter Desean Hale [id number] ity of [place] [phone] [facility] [address] 2019-07-02 2019-07-04 [facility] Jaspreet Noelnell [facility] 1.2.840.1 [id number] 11:42:40 18:46:00 Encounter Desean Hale [id number] [place] [id number] [place] [id number] [facility] 2019-06-13 2019-06-13 [facility] 1.2.840.114 [id number] Univers 00:00:00 00:00:00 Chago [place] 350.1.13.10 i ty [id number] [phone] Ia dical [address] 2019-06-13 2019-06-13 [facility] 1.2.840.114 [id number] 00:00:00 00:00:00 Chago [place] 350.1.13.10 [place] [id number] Professio [phone] [address] 2019-06-01 2019-06-01 Office [facility] [id number] 13:31:45 14:23:22 Visit Melchor Tello 350.1.13.10 ity of [place] 4.2.7.2.686 Elsie ambriz Professio [phone] Ia dical nal 059 [facility] 2019-06-01 2019-06-01 [facility] [id number] 13:31:45 14:23:22 Visit Melchor Tello 350.1.13.10 [place] 4.2.7.2.686 Professio [phone] [address] Results Test Description Test Time Test [...] indications. Lab Interpretation (test code = Normal 16506-7) [facility] METABOLIC PANEL (NA, K, CL, CO2, GLUCOSE, BUN, CREATININE, CA)2019-07-04 19:25:00 Test Item Value Reference Range Interpretation Comments NA (test code = 137 mmol/L 135-145 9482714704) K (test code = 4.1 mmol/L 3.5-5 5742343283) CL (test code = 102 mmol/L 98-108 8407870515) CO2 TOTAL (test code = 27 mmol/L 23-31 1661750883) AGAP (test code = 2-16 8475792340) BUN (test code = 12 mg/dL 7-23 2089700630) GLUCOSE (test code = 103 mg/dL 70-110 2071060511) CREATININE (test code 0.70 mg/dL 0.6-1.25 = 7343917338) CALCIUM (test code = 8.8 mg/dL 8.6-10.6 9377977877) eGFR Calculation mL/min/1.73m2 (Non-) (test code = 2950757556) eGFR Calculation mL/min/1.73m2 () (test code = 2703169747) DAQUAN (test code = DAQUAN) Association of [...] or urine or abnormalities in imaging tests). [facility]2020[facility]17 19:24:00 Test Item Value Reference Range Interpretation Comments MAGNESIUM (test code = 2047871032) 2.3 mg/dL 1.7-2.4 Lab Interpretation (test code = Normal 96587-1) [facility] CenterXR RIBS 3 VW [id number] 14:21:01 Left seventh through tenth rib fractures. [...] have reviewed this study and agree withthe abovereport.[facility] CenterTROPONIN I 2019-07-03 08:28:00 Test Item Value Reference Range Interpretation Comments TROPONIN I (test <0.012 See_Comment [Automated code = 7336904372) message] The system which generated this result [...] ? Lab Interpretation Normal (test code = 32821-6) [facility] Metabolic Panel (NA, K, CL, CO2, GLUCOSE, BUN, CREATININE, CA)2019-07-03 08:17:00 Test Item Value Reference Range Interpretation Comments NA (test code = 132 mmol/L 135-145 L 3959166079) K (test code = 3.3 mmol/L 3.5-5 L 9932842910) CL (test code = 94 mmol/L 98-108 L 7395084338) CO2 TOTAL (test code = 27 mmol/L 23-31 0394278843) AGAP (test code = 2-16 2021921824) BUN (test code = 18 mg/dL 7-23 0067208092) GLUCOSE (test code = 116 mg/dL 70-110 H 5648406128) CREATININE (test code = 0.68 mg/dL 0.6-1.25 7473091588) CALCIUM (test code = 8.6 mg/dL 8.6-10.6 2033547731) eGFR Calculation mL/min/1.73m2 (Non-) (test code = 3439645426) eGFR Calculation mL/min/1.73m2 () (test code = 1415549239) DAQUAN (test code = DAQUAN) Association of [...] tests). Lab Interpretation Abnormal (test code = 80225-3) [facility] CenterMagnesium [id number] 08:17:00 Test Item Value Reference Range Interpretation Comments MAGNESIUM (test code = 2504962401) 1.7 mg/dL 1.7-2.4 Lab Interpretation (test code = Normal 20227-0) [facility] CenterCB WITH [id number] 08:04:00 Test Item Value Reference Range Interpretation Comments WBC (test code = See_Comment [Automated 6690-2) message] The sy stem which generated this result transmitted reference range : 4.20 - 10.70 10*3/?L. The reference range was not used to interpret this result as normal/abnormal . RBC (test code = See_Comment [Automated 619-8) message] The sy stem which generated this [...] RDW-SD (test code = 41.0 fL 38.5-51.6 23652-8) RDW-CV (test code = 14.0 % 12.1-15.4 788-0) PLT (test code = See_Comment L [Automated 777-3) message] The sy stem which generated this result transmitted reference range : 150 - 328 10*3/ ?L. The reference r susan was not used to interpret this result as normal/abnormal . MPV (test code = 9.8 fL 9.8-13 76274-8) NRBC/100 WBC (test See_Comment [Automat ed code = 8071142211) message] The system which generated this result transmitted reference range : 0.0 - 10.0 /100 WBCs. The refer ence range was not u sed to interpret th is result as normal/abnormal . NRBC x10^3 (test code <0.01 See_Comment [Auto mated = 5836428486) message] The s ystem which generated this result transmitted reference range : 10*3/?L. The reference range was not used to interpret this result as normal/abnormal . GRAN MAT (NEUT) % 76.1 % (test code = 770-8) IMM GRAN % (test code 0.30 % = 2282458620) LYMPH % (test code = 15.8 % 736-9) MONO % (test code = 7.0 % 5905-5) EOS % (test code = 0.3 % 713-8) BASO % (test code = 0.5 % 706-2) GRAN MAT x10^3(ANC) 7.19 10*3/uL 1.99-6.95 H (test code = 2984168628) IMM GRAN x10^3 (test 0.03 10*3/uL 0-0.06 code = 1320756964) LYMPH x10^3 (test code 1.49 10*3/uL 1.09-3.23 = 731-0) MONO x10^3 (test code 0.66 10*3/uL 0.36-1.02 = 742-7) EOS x10^3 (test code = 0.03 10*3/uL 0.06-0.53 L 711-2) BASO x10^3 (test code 0.05 10*3/uL 0.01-0.09 = 704-7) Lab Interpretation Abnormal (test code = 93571-2) [facility] [id number] 23:57:00 Test Item Value Reference Range Interpretation Comments TROPONIN I (test <0.012 See_Comment [Automated code = 9904875678) message] The system which generated this result [...] ? Lab Interpretation Normal (test code = 21854-5) [facility] / [facility] - DRUG SCREEN [id number] 20:14:00 Test Item Value Reference Range Interpretation Comments BENZO U (test code = Presumptive Positive Negative A 7768947607) OLEGARIO U (test code = Negative Negative 9370074861) AMPHET (test code = Negative Negative 7617891725) THC (test code = Negative Negative 4726421485) METHADONE (test code = Negative Negative 8459046328) Meth U (test code = Negative Negative 3924648158) OPIATES (test code = Negative Negative 9647027947) Cocaine Metabolite (test Negative Negative code = 8341353319) PROPOXY (test code = Negative Negative 6141289360) Tric U (test code = Negative Negative 7472304629) PCP (test code = Negative Negative 2424345065) OXYCOD (test code = Negative Negative 4993708566) DAQUAN (test code = DAQUAN) Urine Drug [...] testing). Lab Interpretation (test Abnormal code = 68635-5) [facility] 1 [id number] 19:18:48 Left 8th through 10th rib fractures. [...] left lateral 8th through 10th rib fractures.. [facility], Radiant Results Inft User- 07/02/2019 1:19 PM [...] reviewed this study and agree with the abovereport.[facility] CenterTroponin [id number] 19:12:00 Test Item Value Reference Range Interpretation Comments TROPONIN I (test <0.012 See_Comment [Automated code = 3014119565) message] The system which generated this result [...] ? Lab Interpretation Normal (test code = 40138-2) [facility] CenteraPTT2020-02-15 19:12:00 Test Item Value Reference Range Interpretation Comments APTT Patient (test See_Comment [Automat ed code = 3173-2) message] The system which generated this result transmitted reference range : 23 - 38 Seconds . The reference range was not used to interpr et this result as normal/abnormal . DAQUAN (test code = DAQUAN) The [facility] patient population mean normal value for aPTT is 30 seconds. Lab Interpretation Normal (test code = 84195-7) [facility] CenterProthrombin Time (PT) / [id number] 19:10:00 Test Item Value Reference Range Interpretation [...] tions. Lab Interpretation (test Normal code = 66704-7) [facility] CenterN-TERMINAL [id number] 19:09:00 Test Item Value Reference Range Interpretation Comments NT-proBNP (test code 12 pg/mL See_Comment [Autom ated = 6041632542) message] The system which generated this result transmitted reference range : <=125. The reference range was not used to interpret this result as normal/abnormal . DAQUAN (test code = DAQUAN) Biotin has been reported to cause a negative bias, interpret results relative to patient's use of biotin. Lab Interpretation Normal (test code = 81985-3) [facility] CenterETHANOL2020-02-15 19:01:00 Test Item Value Reference Range Interpretation Comments ALCOHOL (test code = 277 mg/dL 0647050617) DAQUAN (test code = DAQUAN) <10 [id number] Toxic>100 Depression of REFRIGERATION ENGINEER>400 Fatalities Reported [facility] CenterMAGNESIUM2020-02-15 19:00:00 Test Item Value Reference Range Interpretation Comments MAGNESIUM (test code = 9059161703) 2.2 mg/dL 1.7-2.4 Lab Interpretation (test code = Normal 73451-6) [facility] CenterBasic Metabolic Panel (NA, K, CL, CO2, GLUCOSE, BUN, CREATININE, CA)2019-07-02 19:00:00 Test Item Value Reference Range Interpretation Comments NA (test code = 143 mmol/L 135-145 2274274114) K (test code = 4.5 mmol/L 3.5-5 4032044179) CL (test code = 100 mmol/L 98-108 3050932403) CO2 TOTAL (test code = 25 mmol/L 23-31 8944386877) AGAP (test code = 2-16 H 0480622045) BUN (test code = 16 mg/dL 7-23 2619402999) GLUCOSE (test code = 121 mg/dL 70-110 H 7287737294) CREATININE (test code = 0.69 mg/dL 0.6-1.25 8697389324) CALCIUM (test code = 8.6 mg/dL 8.6-10.6 6476987256) eGFR Calculation mL/min/1.73m2 (Non-) (test code = 4671603890) eGFR Calculation mL/min/1.73m2 () (test code = 5533185176) DAQUAN (test code = DAQUAN) Association of [...] tests). Lab Interpretation Abnormal (test code = 63728-3) [facility] CenterHepatic Function Panel (ALB, T.PRO, BILI T, BU/BC, ALT, AST, ALK PHOS)2019-07-02 19:00:00 Test Item Value Reference Range Interpretation Comments TOTAL BILI (test code = 1590266582) 0.9 mg/dL 0.1-1.1 BILI UNCON (test code = 0823512231) 0.5 mg/dL 0.1-1.1 BILI CONJ (test code = 9162987696) 0.0 mg/dL 0-0.3 T PROTEIN (test code = 0884472868) 8.3 g/dL 6.3-8.2 H ALBUMIN (test code = 8096275239) 4.9 g/dL 3.5-5 ALK PHOS (test code = 7244007325) 93 U/L 34-122 ALTv (test code = 1742-6) 32 U/L 5-50 AST(SGOT) (test code = 2092778386) 57 U/L 13-40 H Lab Interpretation (test code = Abnormal 16907-3) [facility] CenterLipase [id number] 19:00:00 Test Item Value Reference Range Interpretation Comments LIPASE (test code = 7302786040) 274 U/L 0-220 H Lab Interpretation (test code = Abnormal 90958-6) [facility] CenterCB WITH [id number] 18:47:00 Test Item Value Reference Range Interpretation Comments WBC (test code = See_Comment [Automated 8190-2) message] The sy stem which generated this result transmitted reference range : 4.20 - 10.70 10*3/?L. The reference range was not used to interpret this result as normal/abnormal . RBC (test code = See_Comment H [Automated 884-8) message] The sy stem which generated this [...] RDW-SD (test code = 40.3 fL 38.5-51.6 02468-1) RDW-CV (test code = 14.0 % 12.1-15.4 788-0) PLT (test code = See_Comment [Automated 777-3) message] The sy stem which generated this result transmitted reference range : 150 - 328 10*3/ ?L. The reference r susan was not used to interpret this result as normal/abnormal . MPV (test code = 9.7 fL 9.8-13 L 28621-9) NRBC/100 WBC (test See_Comment [Automat ed code = 2005350671) message] The system which generated this result transmitted reference range : 0.0 - 10.0 /100 WBCs. The refer ence range was not u sed to interpret th is result as normal/abnormal . NRBC x10^3 (test code <0.01 See_Comment [Auto mated = 5841855881) message] The s ystem which generated this result transmitted reference range : 10*3/?L. The reference range was not used to interpret this result as normal/abnormal . GRAN MAT (NEUT) % 61.6 % (test code = 770-8) IMM GRAN % (test code 0.30 % = 0786161859) LYMPH % (test code = 30.7 % 736-9) MONO % (test code = 5.4 % 5905-5) EOS % (test code = 1.3 % 713-8) BASO % (test code = 0.7 % 706-2) GRAN MAT x10^3(ANC) 4.67 10*3/uL 1.99-6.95 (test code = 9013033339) IMM GRAN x10^3 (test <0.03 0-0.06 code = 9334832938) LYMPH x10^3 (test code 2.33 10*3/uL 1.09-3.23 = 731-0) MONO x10^3 (test code 0.41 10*3/uL 0.36-1.02 = 742-7) EOS x10^3 (test code = 0.10 10*3/uL 0.06-0.53 711-2) BASO x10^3 (test code 0.05 10*3/uL 0.01-0.09 = 704-7) Lab Interpretation Abnormal (test code = 65907-3) [facility]"
[2022-06-02] MEDS ORDERED: ONDANSETRON 4 MG/2 ML VIAL ONE (05:34)
[2022-06-02] MEDS ORDERED: MORPHINE 4 MG/ML SYR ONE (05:34)
[2022-06-02 05:35] LABS: Absolute Lymphocytes (CBC) 1.9 K/uL (0.7-4.9); Lymphocytes % 33.7 % (15.3-44.8); MCV 83.4 fL (80-100); MPV 6.8 fL (7.6-11.3); RBC Red Blood Cell Count 5.64 M/uL (4.33-5.43)
[2022-06-02 05:59] LABS: Potassium 3.4 mmol/L (3.5-5.1); Troponin High Sensitivity 9.6 pg/mL (<58.9)
[2022-06-02 06:17] LABS: Urine Blood Negative (Negative); Urine Glucose Negative (Negative); Urine Protein Negative (Negative); Urine Specific Gravity <=1.005 (1.005-1.030)
[2022-06-02 06:31] LABS: Barbiturates NEGATIVE (NEGATIVE); Benzodiazepines NEGATIVE (NEGATIVE); Cocaine NEGATIVE (NEGATIVE); METHAMPHETAM NEGATIVE (NEGATIVE); Methadone NEGATIVE (NEGATIVE); Opiates NEGATIVE (NEGATIVE); Phencyclidine NEGATIVE (NEGATIVE); THC Cannibis NEGATIVE (NEGATIVE)
[2022-06-02] MEDS ORDERED: LORazepam 2 MG/ML VIAL ONE (06:42)
[2022-06-02] MEDS ORDERED: DIAZEPAM 10 MG/2 ML INJ SYRINGE ONE (07:48)
[2022-06-02] MEDS ORDERED: LIDOCAINE VISCOUS 2% SOLN 15 ML UDC ONE (07:48)
[2022-06-02] MEDS ORDERED: MAGNES/ALUMIN/SIMET 30ML UCUP ONE (07:48)
--- NOTE | 2022-06-02 09:16 | ER ---
Nurse's Notes [facility] Name: Frank Polo Age: 51 yrs Sex: Male : 1970 Arrival Date: 06/02/2022 Time: 05:12 Bed 17 Private MD: Diagnosis: Chest pain, unspecified;Alcohol abuse with intoxication Presentation: 06/02 05:13 Chief complaint: EMS states: 51 year old male complains of chest pain and vomiting. ha1 Coronavirus screen: Vaccine status: Patient reports being unvaccinated. Ebola Screen: No symptoms or risks identified at this time. Initial Sepsis Screen: Does the patient meet any 2 criteria? No. Patient's initial sepsis screen is negative. Does the patient have a suspected source of infection? No. Patient's initial sepsis screen is negative. Risk Assessment: Do you want to hurt yourself or someone else? Patient reports no desire to harm self or others. Onset of symptoms was June 02, 2022. 05:13 Method Of Arrival: EMS: [facility] ha1 05:13 Acuity: PRANAV 3 ha1 Triage Assessment: 05:18 General: Appears uncomfortable, Behavior is calm, cooperative. Pain: Complains of pain ha1 in chest Pain does not radiate. Pain currently is 10 out of 10 on a pain scale. EENT: No deficits noted. No signs and/or symptoms were reported regarding the EENT system. Neuro: Level of Consciousness is awake, alert, obeys commands, Oriented to person, place, time, situation. Cardiovascular: Reports chest pain, Heart tones S1 S2 present Patient's skin is warm and dry. Rhythm is sinus tachycardia. Respiratory: Airway is patent Trachea midline Respiratory effort is even, unlabored, Respiratory pattern is regular, symmetrical. GI: Abdomen is non-distended, obese, Bowel sounds present X 4 quads. Reports vomiting. : No signs and/or symptoms were reported regarding the genitourinary system. Derm: Skin is normal. Musculoskeletal: Circulation, motion, and sensation intact. Historical: - Allergies: 05:18 NKDA; ha1 - Home Meds: 05:18 atorvastatin Oral [Active]; gabapentin 300 mg Oral cap 1 cap 3 times per day [Active]; ha1 Remeron 15 mg Oral tab [Active]; - PMHx: 05:18 Alcoholism; Anxiety; Bipolar disorder; Myocardial infarction; PE; ha1 - PSHx: 05:18 ankle surgery; ha1 - Immunization history:: Adult Immunizations not up to date. - Social history:: Smoking status: Patient reports use of chewing tobacco. Screenin:22 Abuse screen: Denies threats or abuse. Denies injuries from another. Nutritional ha1 screening: No deficits noted. Tuberculosis screening: No symptoms or risk factors identified. 07:00 [facility] ED Fall Risk Assessment (Adult) History of falling in the last 3 months, db including since admission Yes- single mechanical fall (1 pt) Confusion or Disorientation No (0 pts) Intoxicated or Sedated No (0 pts) Impaired Gait No (0 pts) Mobility Assist Device Used No (0 pt) Altered Elimination No (0 pt) Score/Fall Risk Level 0 - 2 = Low Risk Oriented to surroundings, Maintained a safe environment. 07:40 [facility] [place] Withdrawal Assessment for Alcohol, revised (CIWA-Ar): db Nausea/Vomitin - Intermittent nausea with dry heaves Headache: 0 - Not present Paroxysmal Sweats: 0 - No sweats visible Anxiety: 4 - Moderately anxious, guarded Agitation: 4 - Moderately fidgety and restless Tremor: 0 - No tremor Auditory Disturbances: 0 - Not present Visual Disturbances: 0 - Not present Tactile Disturbances: 0 - None Orientation and Clouding of Sensorium: 0 - Oriented and can do serial additions Total Score: 16 to 20: Modest Withdrawal. Assessment: 05:15 General: see triage assessment . ha1 06:00 Reassessment: Patient and/or family updated on plan of care and expected duration. Pain ha1 level reassessed. Patient is alert, oriented x 3, equal unlabored respirations, skin warm/dry/pink. pt. reports pain has not been relieved with medications. in shift notified. pain 02/24. 07:11 Reassessment: Patient appears in no apparent distress at this time. Patient and/or db family updated on plan of care and expected duration. Pain level reassessed. Patient is alert, oriented x 3, equal unlabored respirations, skin warm/dry/pink. 07:11 Reassessment: PATIENT GIVEN ICE WATER. db 07:34 Reassessment: Patient appears in no apparent distress at this time. RUTHANN TRINIDAD SPEAKING db WITH PATIENT. PATIENT GIVEN SANDWICH. 07:45 Pain: Complains of pain in MIDDLE CHEST Pain began gradually. Neuro: No deficits noted. db Level of Consciousness is awake, alert, obeys commands, Oriented to person, place, time, situation, Speech is normal. Cardiovascular: Reports chest pain, Denies shortness of breath. Respiratory: No deficits noted. Airway is patent Respiratory effort is even, unlabored, Respiratory pattern is regular, symmetrical. GI: No deficits noted. No signs and/or symptoms were reported involving the gastrointestinal system. Abdomen is non-distended. 08:15 Reassessment: No changes from previously documented assessment. db 08:18 Reassessment: Patient appears in no apparent distress at this time. PATIENT AMBULATORY db TO THE RESTROOM. 08:50 Reassessment: Patient appears in no apparent distress at this time. PATIENT PROVIDED db FOOD TRAY. 09:27 Reassessment: Patient appears in no apparent distress at this time. No changes from db previously documented assessment. Patient and/or family updated on plan of care and expected duration. Pain level reassessed. Patient is alert, oriented x 3, equal unlabored respirations, skin warm/dry/pink. Vital Signs: 05:12 BP 160 / 85; Pulse 108; Resp 20 S; Pulse Ox 100% on R/A; ha1 05:13 BP 160 / 85; Pulse 108; Resp 20 S; Temp 97.9(O); Pulse Ox 100% on R/A; Weight 81.65 kg; ha1 Height 5 ft. 10 in. (177.80 cm); Pain 10/10; 06:00 BP 133 / 96; Pulse 106; Resp 19 S; Pulse Ox 98% on R/A; ha1 06:47 BP 148 / 93; Pulse 93; Resp 18 S; Pulse Ox 98% on R/A; ha1 07:00 BP 132 / 85; Pulse 102; Resp 20; Pulse Ox 96% on R/A; db 09:00 BP 133 / 86; Pulse 92; Resp 16; Pulse Ox 98% on R/A; db 05:13 Body Mass Index 25.83 (81.65 kg, 177.80 cm) ha1 ED Course: 05:12 Patient arrived in ED. ha1 05:13 Angi Carter RN is Primary Nurse. ha1 05:13 Rosales Enrique MD is Attending Physician. kdr 05:18 Triage completed. ha1 05:18 Arm band placed on right wrist. ha1 05:22 Patient has correct armband on for positive identification. Placed in gown. Bed in low ha1 position. Call light in reach. Side rails up X2. Client placed on continuous cardiac and pulse oximetry monitoring. NIBP monitoring applied. 05:28 Inserted saline lock: 20 gauge in right forearm, using aseptic technique. Blood rv1 collected. 05:39 Lipase Sent. rv1 05:39 Basic Metabolic Panel Sent. ha1 05:39 Troponin HS Sent. rv1 05:51 XRAY Chest (1 view) In Process Unspecified. EDMS 06:22 UDS Sent. rv1 06:22 ETOH Level Sent. rv1 07:00 Patient maintains SpO2 saturation greater than 95% on room air. db 07:06 Lex Mccray PA is PHCP. marianna 09:00 No provider procedures requiring assistance completed. IV discontinued, intact, db bleeding controlled, No redness/swelling at site. Administered Medications: 05:30 Drug: Zofran (Ondansetron) 4 mg Route: IVP; Site: right antecubital; ha1 06:00 Follow up: Response: No adverse reaction ha1 05:33 Drug: morphine 4 mg Route: IVP; Infused Over: 4 mins; Site: right antecubital; ha1 06:00 Follow up: Response: No adverse reaction; Pain is unchanged, physician notified; RASS: ha1 Agitated (+2) 06:20 Drug: Ativan (LORazepam) 1 mg Route: IVP; Site: right antecubital; ha1 06:48 Follow up: Response: No adverse reaction; Anxiety decreased ha1 07:48 Drug: Valium (diazepam) 5 mg Route: IVP; Site: right antecubital; db 08:14 Follow up: Response: No adverse reaction db 07:48 Drug: GI Cocktail without - (Maalox Suspension 30 ml, Lidocaine Liquid 2 % 15 db ml) Route: PO; 08:14 Follow up: Response: No adverse reaction db Medication: 08:16 VIS not applicable for this client. db Outcome: 09:00 Discharged to home ambulatory, with friend. db 09:00 Condition: stable 09:00 Discharge instructions given to patient, Instructed on discharge instructions, follow up and referral plans. 09:15 Discharge ordered by . marianna 09:30 Patient left the ED. db Signatures: Dispatcher [employer] EDMS Rosales Enrique MD MD kdr Mickail, Joel, PA PA jmm Ayala, Heidy, RN RN ha1 Gabrielle Dee RN RN Awa Avalos rv1 Corrections: (The following items were deleted from the chart) 06:35 05:28 Inserted saline lock: 20 gauge in right antecubital area, using aseptic rv1 technique. Blood collected. rv1 06:46 06:00 Response: No adverse reaction ha1 ha1
--- NOTE | 2022-06-02 09:16 | EDPHYS ---
Physician Documentation [facility] Name: Frank Polo Age: 51 yrs Sex: Male : 1970 Arrival Date: 06/02/2022 Time: 05:12 Bed 17 Private MD: ED Physician Rosales Enrique HPI: 06/02 05:13 This 51 yrs old Male presents to ER via Unassigned with complaints of Chest Pain. kdr 05:56 States that he stopped drinking a sixpack a day yesterday. Since then he has had no kdr alcohol. He states that he feels like he is having a heart attack. He had a heart attack about 4 years ago and the pain is having now similar. Pain is left-sided anterior chest wall.. Onset: The symptoms/episode began/occurred suddenly, 6 hour(s) ago. Severity of symptoms: At their worst the symptoms were severe incapacitating in the emergency department the symptoms are unchanged. It is unknown whether or not the patient has had similar symptoms in the past. It is unknown whether or not the patient has recently seen a physician. Historical: - Allergies: 05:18 NKDA; ha1 - Home Meds: 05:18 atorvastatin Oral [Active]; gabapentin 300 mg Oral cap 1 cap 3 times per day [Active]; ha1 Remeron 15 mg Oral tab [Active]; - PMHx: 05:18 Alcoholism; Anxiety; Bipolar disorder; Myocardial infarction; PE; ha1 - PSHx: 05:18 ankle surgery; ha1 - Immunization history:: Adult Immunizations not up to date. - Social history:: Smoking status: Patient reports use of chewing tobacco. ROS: 05:56 Constitutional: Negative for fever, chills, and weight loss, Eyes: Negative for injury, kdr pain, redness, and discharge, ENT: Negative for injury, pain, and discharge, Neck: Negative for injury, pain, and swelling, Respiratory: Negative for shortness of breath, cough, wheezing, and pleuritic chest pain, Abdomen/GI: Negative for abdominal pain, nausea, vomiting, diarrhea, and constipation, Back: Negative for injury and pain, : Negative for injury, bleeding, discharge, and swelling, MS/Extremity: Negative for injury and deformity, Skin: Negative for injury, rash, and discoloration, Neuro: Negative for headache, weakness, numbness, tingling, and seizure activity. Psych: Negative for depression, anxiety, suicide ideation, homicidal ideation, and hallucinations, Allergy/Immunology: Negative for hives, rash, and allergies, Endocrine: Negative for neck swelling, polydipsia, polyuria, polyphagia, and marked weight changes, Hematologic/Lymphatic: Negative for swollen nodes, abnormal bleeding, and unusual bruising. 05:56 Cardiovascular: Positive for chest pain, Negative for edema, orthopnea, palpitations, paroxysmal nocturnal dyspnea. Exam: 05:56 Constitutional: This is a well developed, well nourished patient who is awake, alert, kdr and in no acute distress. Head/Face: Normocephalic, atraumatic. Eyes: Pupils equal round and reactive to light, extra-ocular motions intact. Lids and lashes normal. Conjunctiva and sclera are non-icteric and not injected. Cornea within normal limits. Periorbital areas with no swelling, redness, or edema. Neck: Trachea midline, no thyromegaly or masses palpated, and no cervical lymphadenopathy. Supple, full range of motion without nuchal rigidity, or vertebral point tenderness. No Meningismus. Chest/axilla: Normal chest wall appearance and motion. Nontender with no deformity. No lesions are appreciated. Respiratory: Lungs have equal breath sounds bilaterally, clear to auscultation and percussion. No rales, rhonchi or wheezes noted. No increased work of breathing, no retractions or nasal flaring. Abdomen/GI: Soft, non-tender, with normal bowel sounds. No distension or tympany. No guarding or rebound. No evidence of tenderness throughout. Back: No spinal tenderness. No costovertebral tenderness. Full range of motion. Skin: Warm, dry with normal turgor. Normal color with no rashes, no lesions, and no evidence of cellulitis. MS/ Extremity: Pulses equal, no cyanosis. Neurovascular intact. Full, normal range of motion. Neuro: Awake and alert, GCS 15, oriented to person, place, time, and situation. Cranial nerves II-XII grossly intact. Motor strength 5/5 in all extremities. Sensory grossly intact. Cerebellar exam normal. Normal gait. Psych: Awake, alert, with orientation to person, place and time. Behavior, mood, and affect are within normal limits. 05:56 Cardiovascular: Rate: normal, Rhythm: regular. Vital Signs: 05:12 BP 160 / 85; Pulse 108; Resp 20 S; Pulse Ox 100% on R/A; ha1 05:13 BP 160 / 85; Pulse 108; Resp 20 S; Temp 97.9(O); Pulse Ox 100% on R/A; Weight 81.65 kg; ha1 Height 5 ft. 10 in. (177.80 cm); Pain 10/10; 06:00 BP 133 / 96; Pulse 106; Resp 19 S; Pulse Ox 98% on R/A; ha1 06:47 BP 148 / 93; Pulse 93; Resp 18 S; Pulse Ox 98% on R/A; ha1 07:00 BP 132 / 85; Pulse 102; Resp 20; Pulse Ox 96% on R/A; db 09:00 BP 133 / 86; Pulse 92; Resp 16; Pulse Ox 98% on R/A; db 05:13 Body Mass Index 25.83 (81.65 kg, 177.80 cm) ha1 MDM: 05:56 Data reviewed: vital signs, nurses notes, lab test result(s), EKG, radiologic studies. kdr I considered the following discharge prescriptions or medication management in the emergency department Medications were administered in the Emergency Department. See JUL. 08:02 Patient medically screened. [facility] 09:09 ED course: Patient is alert and non toxic in appearance in the ED. Patient has called [facility] for a ride due to ETOH impairment. Patient given strict return precautions. Patient understood and agrees with the plan of care. . 06/02 05:20 Order name: Basic Metabolic Panel; Complete Time: 06:19 06/02 05:20 Order name: CBC with Diff; Complete Time: 06:19 bb 06/02 05:20 Order name: Troponin HS; Complete Time: 06:19 bb 06/02 05:24 Order name: ETOH Level; Complete Time: 06:28 kdr 06/02 05:24 Order name: UDS; Complete Time: 07:06 kdr 06/02 05:20 Order name: XRAY Chest (1 view) 06/02 05:32 Order name: Lipase; Complete Time: 06:19 EDMS 06/02 06:17 Order name: Urine Dipstick-Ancillary; Complete Time: 06:19 EDAL 06/02 05:20 Order name: EKG; Complete Time: 05:21 06/02 05:20 Order name: Cardiac monitoring; Complete Time: 05:23 06/02 05:20 Order name: EKG - Nurse/Tech; Complete Time: 05:23 06/02 05:20 Order name: IV Saline Lock; Complete Time: 05:23 06/02 05:20 Order name: Labs collected and sent; Complete Time: 05:39 06/02 05:20 Order name: O2 Per Protocol; Complete Time: 05:23 06/02 05:20 Order name: O2 Sat Monitoring; Complete Time: 05:23 06/02 08:19 Order name: Diet Finger Food; Complete Time: 08:19 db Administered Medications: 05:30 Drug: Zofran (Ondansetron) 4 mg Route: IVP; Site: right antecubital; ha1 06:00 Follow up: Response: No adverse reaction ha1 05:33 Drug: morphine 4 mg Route: IVP; Infused Over: 4 mins; Site: right antecubital; ha1 06:00 Follow up: Response: No adverse reaction; Pain is unchanged, physician notified; RASS: ha1 Agitated (+2) 06:20 Drug: Ativan (LORazepam) 1 mg Route: IVP; Site: right antecubital; ha1 06:48 Follow up: Response: No adverse reaction; Anxiety decreased ha1 07:48 Drug: Valium (diazepam) 5 mg Route: IVP; Site: right antecubital; db 08:14 Follow up: Response: No adverse reaction db 07:48 Drug: GI Cocktail without - (Maalox Suspension 30 ml, Lidocaine Liquid 2 % 15 db ml) Route: PO; 08:14 Follow up: Response: No adverse reaction db Disposition Summary: 06/02/22 09:15 Discharge Ordered Location: Home jm Condition: Stable jm Diagnosis - Chest pain, unspecified jmm - Alcohol abuse with intoxication jm Followup: jmm - With: Private Physician - When: 2 - 3 days - Reason: Recheck today's complaints, Continuance of care, Re-evaluation by your physician Discharge Instructions: - Discharge Summary Sheet jmm - Alcohol Intoxication jmm - Nonspecific Chest Pain, Adult jm Forms: - Medication Reconciliation Form jm - Thank You Letter jmm - Antibiotic Education jmm - Prescription Opioid Use jmm Signatures: Dispatcher [employer] EDMS Rosales Ernique MD MD kdr Mickail, Joel, PA PA jmm Arti Teague, RN RN bb Angi Carter, EDISON RN ha1 Gabrielle Dee RN RN db Corrections: (The following items were deleted from the chart) 05:31 05:25 LIPASE+C.LAB.BRZ ordered. EDMS EDMS
[2022-06-02 09:42] VITALS: TEMP 97.9
[2022-06-02 09:55] VITALS: BP 133/86; O2SAT 98
--- NOTE | 2022-06-02 11:12 | RAD REPORT ---
EXAM DESCRIPTION: RAD - Chest Single View - 06/02/2022 5:49 am CLINICAL HISTORY: 48 years Male Chest Pain TECHNIQUE: Contiguous axial images obtained through the chest and abdomen without IV contrast. Coron al and sagittal reformatted images provided. This CT exam was performed according to our departmental dose-optimization program, which includes on e or more of the following dose reduction techniques: automated exposure control, adjustment of the m A and/or kV according to patient size, and/or use of iterative reconstruction technique. COMPARISON: No prior exams provided for comparison. FINDINGS: There are acute fractures of the left 5th through 10th ribs anterolaterally. No acute frac ture in the chest or thoracic spine. There is no mediastinal hematoma, pericardial effusion, pleural effusion, or pneumothorax. The heart is normal in size and there is no thoracic aortic aneurysm. Minimal atelectasis vs. contusions in the lingula. The lungs are otherwise clear without focal consol idation. No enlarged mediastinal lymph nodes. The central airways are patent. No acute fracture in the visualized lumbar spine. Diffuse fatty infiltration of the liver, which is moderately enlarged without laceration or visualize d focal lesion. The unenhanced biliary tree, gallbladder, pancreas, spleen, adrenal glands, and kidneys are normal. N o visualized retroperitoneal hemorrhage, ascites, or free intraperitoneal air. The abdominal aorta an d its branches are normal in caliber. There is no visualized bowel obstruction or wall thickening. IMPRESSION: Acute fractures of the left fifth through 10th ribs anterolaterally. Minimal atelectasis vs. contusions in the lingula. No other acute injury in the chest. No acute injury in the abdomen. Fatty infiltration of the liver, which is enlarged. Electronically signed by: Larisa Booth MD 07/10/2019 11:27 PM TERMITE HELPER Due to temporary technical issues with the PACS/Fluency reporting system, reports are being signed by the in house radiologists without review as a courtesy to insure prompt reporting. The interpreting radiologist is fully responsible for the content of the report.
--- NOTE | 2022-06-02 17:31 | EKG ---
Test Date: 2022-06-02 Test Time: 05:16:01 [place] Supervisor: RV MEASUREMENT RESULTS: Intervals: Rate: 109 DE: 154 QRSD: 82 QT: 342 QTc: 460 [place]: P: 7 DE: 154 QRS: 23 T: 21 INTERPRETIVE STATEMENTS: Sinus tachycardia Low voltage QRS Borderline ECG Compared to ECG 04/03/2022 05:02:25 Low QRS voltage now present Sinus rhythm no longer present ST (T wave) deviation no longer present Possible ischemia no longer present Prolonged QT interval no longer present Electronically Signed On 06-02-22 17:30:35 PAYROLL ACCOUNTANT by Stan Salmeron
== END 2022-06-02 09:30 | disposition home or self-care (01) ==
LOC: ER 05:09
DX: R07.89 Other chest pain (principal); F10.229 Alcohol dependence with intoxication, unspecified; I25.2 Old myocardial infarction; F17.220 Nicotine dependence, chewing tobacco, uncomplicated
CPT/HCPCS: 93005; 85025; 80048; 36415; 81003; 84484; 83690; 80307; 71045; J3360; J2405; G0480; 96374; 96375; 99285

== ENCOUNTER 2023-08-24 18:47 | Emergency (ER) | payer OTHER ==
--- NOTE | 2023-08-24 19:49 | EDPHYS ---
Physician Documentation [facility] Name: Frank Polo Age: 53 yrs Sex: Male : 1970 Arrival Date: 08/24/2023 Time: 18:47 Bed 5 Private MD: ED Physician Jani Benavides HPI: 08/23 19:28 This 53 yrs old Male presents to ER via EMS with complaints of Chest Pain, Vomiting rn blood. 19:28 The patient or guardian reports chest pain that is located primarily in the chest rn diffusely. Onset: at an unknown time. The pain does not radiate. Associated signs and symptoms: Pertinent positives: vomiting, Pertinent negatives: cough, diaphoresis. The chest pain is described as sharp. Duration: The patient or guardian reports multiple episodes, that are intermittent. Modifying factors: The symptoms are alleviated by nothing. the symptoms are aggravated by Vomiting. Severity of pain: At its worst the pain was moderate in the emergency department the pain is unchanged. Patient reports vomiting blood for 2 days, about 10 episodes, mixture of coffee-ground's and some red blood, reports chronic alcoholic and just recently started on a binge as well. Has been drinking for 2 days. Reports chest pain after vomiting as well as upper abdominal pain. No trauma.. Historical: - Allergies: 18:58 NKDA; kc6 - PMHx: 18:58 Alcoholism; Anxiety; Bipolar disorder; Myocardial infarction; PE; kc6 - PSHx: 18:58 ankle surgery; kc6 - Immunization history:: Adult Immunizations unknown. - Infectious Disease History:: Denies. - Social history:: Smoking status: unknown. - Family history:: not pertinent. - Hospitalizations: : No recent hospitalization is reported. ROS: 19:30 Constitutional: Negative for fever, chills, and weight loss, Cardiovascular: Positive rn for chest pain Respiratory: Negative for shortness of breath, cough, wheezing, and pleuritic chest pain, Abdomen/GI: Positive for upper abdominal pain with hematemesis MS/Extremity: Negative for injury and deformity, Skin: Negative for injury, rash, and discoloration, Neuro: Positive for generalized weakness Exam: 19:30 Constitutional: This is a well developed, well nourished patient who is awake, alert, rn very argumentative towards staff, demanding pain medication and other things. Head/Face: Normocephalic, atraumatic. Cardiovascular: Tachycardic, regular. Respiratory: No increased work of breathing, no retractions or nasal flaring. Abdomen/GI: Soft, mild epigastric tenderness. MS/ Extremity: Pulses equal, no cyanosis. Neurovascular intact. Full, normal range of motion. Equal circumference. Neuro: Awake and alert, GCS 15, oriented to person, place, time, and situation. Cranial nerves II-XII grossly intact. Motor strength 5/5 in all extremities. Sensory grossly intact. No tongue fasciculations. Coarse bilateral upper extremity tremor. Vital Signs: 18:53 BP 127 / 78; Pulse 120; Resp 19 S; Temp 97.5(O); Pulse Ox 95% on R/A; Weight 99.79 kg kc6 (R); Height 5 ft. 10 in. (R); 18:53 Body Mass Index 31.57 (99.79 kg, 177.8 cm) 6 MDM: 19:01 Patient medically screened. rn 19:48 Differential diagnosis: acute myocardial infarction, acute pericarditis, anxiety, rn coronary artery disease chest wall pain, costochondritis, esophagitis, gastritis, gastroesophageal reflux disease (GERD), pancreatitis, peptic ulcer disease, pulmonary embolus, stable angina, thoracic aortic disection, unstable angina, Hematemesis, variceal bleeding. Data reviewed: vital signs, nurses notes. Refusal of service: The patient/guardian displays adequate decision making capability and despite a detailed discussion of alternatives, benefits, risks, and consequences refuses: Admission to the hospital for further work-up and treatment, CT Scan, all lab tests, Medications. ED course: Patient was upset and refuses all care. Did not allow nurse to place IV or obtain testing. Allowed EKG which showed sinus tachycardia but no acute ischemic signs. Patient understands risk of leaving without further evaluation especially given hemoptysis and chest pain with abnormal vital signs. Patient gave no other reason other than he does not like us. Patient alert and oriented, got himself dressed and refused all care despite numerous people telling him he should stay for completion of visit and evaluation.. 08/23 19:08 Order name: EKG; Complete Time: 19:09 rn 08/23 19:08 Order name: Cardiac monitoring rn 08/23 19:08 Order name: EKG - Nurse/Tech rn 08/23 19:08 Order name: IV Saline Lock rn 08/23 19:08 Order name: Labs collected and sent rn 08/23 19:08 Order name: O2 Per Protocol rn 08/23 19:08 Order name: O2 Sat Monitoring rn 08/23 19:20 Order name: NPO rn Administered Medications: No medications were administered Disposition Summary: 08/24/23 19:49 Left Against Medical Advice Notes: Location: Home 8 Condition: Fair bm8 Signatures: Dispatcher [employer] Jani Ga MD MD rn Campbell, Kaitlyn RN RN kc6 Simon Rivera RN RN bm8
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
[2023-08-25 03:07] VITALS: BP 127/78; TEMP 97.5; O2SAT 95
--- NOTE | 2023-08-25 16:16 | EKG ---
Test Date: 2023-08-24 Test Time: 19:24:46 Yarn Dumper: RV MEASUREMENT RESULTS: Intervals: Rate: 125 ME: 148 QRSD: 88 QT: 300 QTc: 433 [place]: P: 70 ME: 148 QRS: 32 T: 44 INTERPRETIVE STATEMENTS: Sinus tachycardia with premature atrial complexes Otherwise normal ECG Compared to ECG 02/08/2023 16:58:14 Sinus rhythm no longer present Electronically Signed On 08-25-23 16:14:33 CDT by Stan Salmeron
== END 2023-08-24 19:49 | disposition left against medical advice (07) ==
LOC: ER 18:47
DX: R07.9 Chest pain, unspecified (principal); F10.20 Alcohol dependence, uncomplicated; F31.9 Bipolar disorder, unspecified
CPT/HCPCS: 93005; 99284

== ENCOUNTER 2023-09-08 13:47 | Emergency (ER) | payer OTHER ==
[2023-09-08] MEDS ORDERED: LORazepam 2 MG/ML VIAL ONE (14:18)
[2023-09-08] MEDS ORDERED: NA CHLORIDE 0.9% 1,000 ML ONE (14:19)
[2023-09-08 14:21] LABS: Absolute Basophils 0.1 K/uL (0-0.5); Absolute Lymphocytes (CBC) 1.1 K/uL (0.7-4.9); Absolute Monocytes 0.4 K/uL (0.1-1.3); Absolute Neutrophil 5.5 K/uL (1.8-8.0); Basophils % 0.7 % (0-1.3); Eosinophils % 0.6 % (0-4.4); Hematocrit 43.2 % (39.6-49.0); Hemoglobin 14.1 g/dL (13.6-17.9); Lymphocytes % 15.8 % (15.3-44.8); MCH 27.1 pg (27.0-35.0); MCHC 32.6 g/dL (32.0-36.0); MCV 83.1 fL (80-100); MPV 7.5 fL (7.6-11.3); Monocytes % 5.6 % (3.3-12.3); Neutrophils % 77.3 % (41.7-73.7); Platelets 333 thou/uL (152-406); Red Cell Distribution Width 14.4 % (12.1-15.2)
[2023-09-08 14:40] LABS: Albumin 3.9 g/dL (3.4-5.0); Albumin/Globulin Ratio 0.9 (1.1-1.8); Bilirubin Direct 0.1 mg/dL (0-0.2); Bilirubin Indirect, Calculated 0.4 mg/dL (0.2-0.8); Bilirubin Total 0.5 mg/dL (0.2-1.0); Globulin 4.2 g/dL (2.3-3.5); Magnesium 2.2 mg/dL (1.6-2.4); Protein, Total 8.1 g/dL (6.4-8.2); Troponin High Sensitivity 4.5 pg/mL (<58.9)
--- NOTE | 2023-09-08 15:19 | RAD REPORT ---
EXAM DESCRIPTION: CT - Chest For Pe Angio - 09/08/2023 2:52 pm CLINICAL HISTORY: Chest pain COMPARISON: 2022 TECHNIQUE: Dynamically enhanced axial 3 mm thick images of the chest were obtained during administra tion of 100 mL Isovue 370 IV contrast. Coronal and oblique reconstruction images were generated and r eviewed. Exam utilizes a protocol for optimal evaluation of pulmonary arterial tree. Maximum intensity projections 3D imaging was utilized All CT scans are performed using dose optimization technique as appropriate and may include automated exposure control or mA/KV adjustment according to patient size. FINDINGS: Very small linear filling defect right lower lobe pulmonary artery consistent with old thr ombus. No acute pulmonary embolus A thoracic aortic aneurysm is not noted. A pleural effusion is not seen. A pericardial effusion is not seen. A lung consolidation is not present. Small hiatal hernia. Fatty liver IMPRESSION: No acute pulmonary embolus
--- NOTE | 2023-09-08 15:37 | ER ---
Nurse's Notes [facility] Name: Frank Polo Age: 53 yrs Sex: Male : 1970 Arrival Date: 09/08/2023 Time: 13:47 Bed 14 Private MD: Diagnosis: Dizziness and giddiness;Other specified anxiety disorders Presentation: 09/07 14:04 Chief complaint: Patient states: has been having right hand tingly for approx one week. ap3 patient also reports dizziness that occurs during the same time. Coronavirus screen: At this time, the client does not indicate any symptoms associated with coronavirus-19. Ebola Screen: No symptoms or risks identified at this time. Initial Sepsis Screen: Does the patient meet any 2 criteria? HR > 90 bpm. Does the patient have a suspected source of infection? No. Patient's initial sepsis screen is negative. Risk Assessment: Do you want to hurt yourself or someone else? Patient reports no desire to harm self or others. Onset of symptoms is unknown. 14:04 Method Of Arrival: Ambulatory ap3 14:04 Acuity: PRANAV 3 ap3 Triage Assessment: 14:07 General: Appears in no apparent distress. Behavior is anxious. Pain: Denies pain. ap3 Neuro: Level of Consciousness is awake, alert, obeys commands, Oriented to person, place, time, situation, Appropriate for age Gait is steady, Speech is normal, Reports dizziness, tingling in right hand. Cardiovascular: Patient's skin is warm and dry. Respiratory: Airway is patent Respiratory effort is even, unlabored, Respiratory pattern is regular, symmetrical. Historical: - Allergies: 14:06 NKDA; ap3 - PMHx: 14:06 Alcoholism; Anxiety; Bipolar disorder; Myocardial infarction; PE; ap3 - PSHx: 14:06 ankle surgery; ap3 - Immunization history:: Adult Immunizations unknown. - Infectious Disease History:: Denies. - Social history:: Smoking status: Patient reports use of chewing tobacco. Screenin:07 Abuse screen: Denies threats or abuse. Nutritional screening: No deficits noted. ap3 Tuberculosis screening: No symptoms or risk factors identified. 14:15 [facility] ED Fall Risk Assessment (Adult) History of falling in the last 3 months, ko1 including since admission No falls in past 3 months (0 pts) Confusion or Disorientation No (0 pts) Intoxicated or Sedated No (0 pts) Impaired Gait No (0 pts) Mobility Assist Device Used No (0 pt) Altered Elimination No (0 pt) Score/Fall Risk Level 0 - 2 = Low Risk Oriented to surroundings, Maintained a safe environment, Educated pt \T\ family on fall prevention, incl call for assistance when getting out of bed, Assessed \T\ reinforced patient's understanding of fall precautions, Provided non-skid footwear, Hourly rounding (assess needs \T\ fall precautionary measures) done, Used ambulatory aids as needed (educated on \T\ assisted with), Used gait belt as appropriate. Assessment: 14:15 General: Appears distressed, Behavior is cooperative, anxious. Pain: Denies pain. ko1 Neuro: Reports dizziness. Cardiovascular: No deficits noted. Respiratory: No deficits noted. GI: No deficits noted. : No deficits noted. EENT: No deficits noted. Derm: No deficits noted. Musculoskeletal: No deficits noted. 15:16 General: Appears comfortable, well groomed, well developed, well nourished, Behavior is me1 calm, cooperative, appropriate for age. Pain: Denies pain. Neuro: Level of Consciousness is awake, alert, obeys commands, Oriented to person, place, time, situation, Appropriate for age Reports dizziness. Cardiovascular: Capillary refill < 3 seconds Patient's skin is warm and dry. Respiratory: Airway is patent Respiratory effort is even, unlabored, Respiratory pattern is regular, symmetrical. GI: No signs and/or symptoms were reported involving the gastrointestinal system. : No signs and/or symptoms were reported regarding the genitourinary system. EENT: No signs and/or symptoms were reported regarding the EENT system. Derm: Skin is intact, is healthy with good turgor, Skin is pink, warm \T\ dry. Musculoskeletal: No signs and/or symptoms reported regarding the musculoskeletal system. Vital Signs: 14:04 BP 136 / 89; Pulse 96; Resp 18; Temp 97.7; Pulse Ox 99% on R/A; Weight 104.33 kg; ap3 14:15 BP 121 / 81; Pulse 89; Resp 16; Pulse Ox 100% ; ko1 15:00 BP 134 / 80; Pulse 90; Resp 16; Pulse Ox 98% on R/A; me1 15:39 BP 119 / 69; Pulse 72; Resp 16; Pulse Ox 100% on R/A; me1 ED Course: 13:48 Patient arrived in ED. rg4 13:50 Maria Fernanda Bloom FNP-C is [facility]. kb 13:50 Jani Benavides MD is Attending Physician. kb 14:00 Cindy Brooke, EDISON is Primary Nurse. ko1 14:06 Triage completed. ap3 14:07 Arm band placed on right wrist. ap3 14:08 Patient has correct armband on for positive identification. Call light in reach. Side ap3 rails up X 1. Pulse ox on. NIBP on. 14:15 Provided Education on: labs/meds. Door closed. Noise minimized. Lights dimmed. Warm ko1 blanket given. 14:15 No provider procedures requiring assistance completed. EKG done, by ED staff, reviewed ko1 by Maria Fernanda DUNCAN. 14:18 Initial lab(s) drawn, by me, sent to lab. Inserted saline lock: 20 gauge in right mb9 forearm, using aseptic technique. Blood collected. 14:50 Chest Single View XRAY In Process Unspecified. EDMS 14:52 CT Chest For PE Angio In Process Unspecified. EDMS 15:47 IV discontinued, intact, bleeding controlled, No redness/swelling at site. Pressure me1 dressing applied. Administered Medications: 14:21 Drug: Ativan IVP 1 mg IVP once Route: IVP; Site: right antecubital; ko1 15:28 Follow up: Response: No adverse reaction; Anxiety unchanged me1 14:21 Drug: NS 0.9% IV 1000 ml IV at 1000 ml once Route: IV; Rate: 1000 ml; Site: right ko1 antecubital; 15:28 Follow up: Response: No adverse reaction; IV Status: Completed infusion; IV Intake: me1 1000ml Medication: 14:15 VIS not applicable for this client. ko1 Intake: 15:28 IV: 1000ml; Total: 1000ml. me1 Outcome: 15:37 Discharge ordered by . kb 15:47 Discharged to home ambulatory, me1 15:47 Condition: stable 15:47 Discharge instructions given to patient, Instructed on discharge instructions, follow up and referral plans. Demonstrated understanding of instructions, follow-up care, 15:48 Patient left the ED. me1 Signatures: Dispatcher [employer] EDMS Maria Fernanda Bloom FNP-Son CONTAINERS SALES REPRESENTATIVE-Leila Price rg4 Jooj Thorpe RN RN ap3 Cindy Brooke, RN RN ko1 Staci Atkinson, RN RN mb9 Ruth Humphrey, RN RN me1 Corrections: (The following items were deleted from the chart) 15:19 15:00 Pulse 90bpm; Resp 16bpm; Pulse Ox 98% RA; me1 me1
--- NOTE | 2023-09-08 15:38 | EDPHYS ---
Physician Documentation [facility] Name: Frank Polo Age: 53 yrs Sex: Male : 1970 Arrival Date: 09/08/2023 Time: 13:47 Bed 14 Private MD: ED Physician Jani Benavides HPI: 09/07 14:17 This 53 yrs old Male presents to ER via Ambulatory with complaints of Anxiety, Numbness kb Of Hand, Dizziness. 16:01 Pt is a 53 year old male who presents for intermittent dizziness, tingling to bilateral kb hands and anxiety for the last week. States he was walking in the park today and started thinking about his history of a blood clot in his lung, then became concerned that it came back so he came in to be checked out. States he needs something for his anxiety attack and wants to make sure he doesn't have a blood clot. Denies shortness of breath, chest pain. Historical: - Allergies: 14:06 NKDA; ap3 - PMHx: 14:06 Alcoholism; Anxiety; Bipolar disorder; Myocardial infarction; PE; ap3 - PSHx: 14:06 ankle surgery; ap3 - Immunization history:: Adult Immunizations unknown. - Infectious Disease History:: Denies. - Social history:: Smoking status: Patient reports use of chewing tobacco. ROS: 14:17 Constitutional: As per HPI kb Exam: 14:17 Constitutional: This is a well developed, well nourished patient who is awake, alert, kb and in no acute distress. Head/Face: Normocephalic, atraumatic. ENT: Moist Mucous membranes Cardiovascular: Regular rate Respiratory: Respirations even and unlabored. No increased work of breathing. Talking in full sentences Abdomen/GI: Soft, non-tender. No distention Skin: Warm, dry with normal turgor. Normal color. MS/ Extremity: Pulses equal, no cyanosis. Neurovascular intact. Full, normal range of motion. Neuro: Awake and alert, GCS 15, oriented to person, place, time, and situation. Moves all extremities. Normal gait. 14:17 ECG was reviewed by the Attending Physician. Vital Signs: 14:04 BP 136 / 89; Pulse 96; Resp 18; Temp 97.7; Pulse Ox 99% on R/A; Weight 104.33 kg; ap3 14:15 BP 121 / 81; Pulse 89; Resp 16; Pulse Ox 100% ; ko1 15:00 BP 134 / 80; Pulse 90; Resp 16; Pulse Ox 98% on R/A; me1 15:39 BP 119 / 69; Pulse 72; Resp 16; Pulse Ox 100% on R/A; me1 MDM: 13:52 Patient medically screened. kb 14:17 Data reviewed: vital signs, nurses notes. kb 15:36 Differential diagnosis: cardiac arrhythmia, hypovolemia, idiopathic dizziness, vertigo, kb anxiety. Counseling: I had a detailed discussion with the patient and/or guardian regarding the historical points, exam findings, and any diagnostic results supporting the discharge/admit diagnosis, lab results, radiology results, the need for outpatient follow up, a family practitioner, to return to the emergency department if symptoms worsen or persist or if there are any questions or concerns that arise at home. 09/07 14:04 Order name: Basic Metabolic Panel; Complete Time: 14:46 kb 09/07 14:04 Order name: CBC with Diff; Complete Time: 14:40 kb 09/07 14:04 Order name: Hepatic Function; Complete Time: 14:46 kb 09/07 14:04 Order name: Magnesium; Complete Time: 14:46 kb 09/07 14:04 Order name: Troponin High Sensitivity; Complete Time: 14:46 kb 09/07 14:04 Order name: D-Dimer; Complete Time: 14:30 kb 09/07 14:19 Order name: Protime (+INR) EDMS 09/07 14:19 Order name: PTT, Activated Partial Thromb EDMS 09/07 14:04 Order name: Chest Single View XRAY; Complete Time: 15:56 kb 09/07 14:31 Order name: CT Chest For PE Angio; Complete Time: 15:23 kb 09/07 14:04 Order name: EKG; Complete Time: 14:05 kb 09/07 14:04 Order name: Cardiac monitoring; Complete Time: 14:05 kb 09/07 14:04 Order name: EKG - Nurse/Tech; Complete Time: 14:21 kb 09/07 14:04 Order name: IV Saline Lock; Complete Time: 14:18 kb 09/07 14:04 Order name: Labs collected and sent; Complete Time: 14:18 kb 09/07 14:04 Order name: NPO; Complete Time: 14:04 kb 09/07 14:04 Order name: O2 Per Protocol; Complete Time: 14:04 kb 09/07 14:04 Order name: O2 Sat Monitoring; Complete Time: 14:05 kb EC:17 Rate is 99 beats/min. Rhythm is regular. QRS [place] is Normal. MS interval is normal at kb 154 msec. QRS interval is normal at 88 msec. QT interval is normal at 446 msec. Administered Medications: 14:21 Drug: Ativan IVP 1 mg IVP once Route: IVP; Site: right antecubital; ko1 15:28 Follow up: Response: No adverse reaction; Anxiety unchanged me1 14:21 Drug: NS 0.9% IV 1000 ml IV at 1000 ml once Route: IV; Rate: 1000 ml; Site: right ko1 antecubital; 15:28 Follow up: Response: No adverse reaction; IV Status: Completed infusion; IV Intake: me1 1000ml Disposition: 16:20 Co-signature as Attending Physician, Jani Benavides MD I reviewed the patient's care rn provided by the Advanced Practice Provider and agree with the diagnosis and treatment plan. Disposition Summary: 09/08/23 15:37 Discharge Ordered Notes: Location: Home kb Condition: Stable kb Diagnosis - Dizziness and giddiness kb - Other specified anxiety disorders kb Followup: kb - With: Emergency Department - When: As needed - Reason: Worsening of condition Followup: kb - With: Private Physician - When: 2 - 3 days - Reason: Recheck today's complaints, Continuance of care, Re-evaluation by your physician Discharge Instructions: - Discharge Summary Sheet kb - Panic Attack, [id number] kb - Dizziness, [id number] kb Forms: - Medication Reconciliation Form kb - Antibiotic Education kb - Prescription Opioid Use kb - Patient Portal Instructions kb - Leadership Thank You Letter kb Signatures: Dispatcher [employer] EDMaria Fernanda Walsh FNP-Son PLANT INSPECTOR-Ckb Jani Benavides MD MD rn Prokisch, Amanda, RN RN ap3 Cindy Brooke RN RN ko1 Ruth Humphrey RN me1 Corrections: (The following items were deleted from the chart) 14:05 14:05 BASIC METABOLIC PANEL+C.LAB.BRZ ordered. EDMS EDMS 14:05 14:05 CBC+H.LAB.BRZ ordered. EDMS EDMS 14:05 14:05 HEPATIC FUNCTION+C.LAB.BRZ ordered. EDMS EDMS 14:05 14:05 MAGNESIUM+C.LAB.BRZ ordered. EDMS EDMS 14:05 14:05 Troponin High Sensitivity+C.LAB.BRZ ordered. EDMS EDMS 14:05 14:05 D-DIMER+COAG.LAB.BRZ ordered. EDMS EDMS 14:17 14:05 PROTIME (+INR)+COAG.LAB.BRZ ordered. EDMS EDMS 14:17 14:05 PTT, ACTIVATED+COAG.LAB.BRZ ordered. EDMS EDMS
--- NOTE | 2023-09-08 15:47 | RAD REPORT ---
EXAM DESCRIPTION: Indra Single View09/08/2023 2:48 pm CLINICAL HISTORY: Chest pain COMPARISON: 2022 FINDINGS: The lungs appear clear of acute infiltrate. The heart is normal size IMPRESSION: No acute abnormalities displayed
[2023-09-08 16:16] VITALS: BP 119/69; TEMP 97.7; O2SAT 100
[2023-09-08 20:56] LABS: PT Prothrombin Time 12.8 SECONDS (9.5-12.5); Protime INR 1.1
== END 2023-09-08 15:48 | disposition home or self-care (01) ==
LOC: ER 13:47
DX: F41.8 Other specified anxiety disorders (principal); F10.20 Alcohol dependence, uncomplicated; F17.210 Nicotine dependence, cigarettes, uncomplicated
CPT/HCPCS: 85025; 80048; 36415; 83735; 85610; 85379; 80076; 85730; 84484; 71275; 71045; Q9967; J7030; 93005

== ENCOUNTER 2023-10-15 12:31 | Emergency (ER) | payer OTHER ==
[2023-10-15] MEDS ORDERED: KETOROLAC 30 MG/ML INJ ONE (13:16)
--- NOTE | 2023-10-15 13:55 | RAD REPORT ---
EXAM DESCRIPTION: RAD - Ribs Right - 10/15/2023 1:37 pm CLINICAL HISTORY: PAIN COMPARISON: Chest Single View dated 09/08/2023 FINDINGS: No fracture or aggressive rib lesion is seen.
--- NOTE | 2023-10-15 14:27 | EDPHYS ---
Physician Documentation [facility] Name: Frank Polo Age: 53 yrs Sex: Male : 1970 Arrival Date: 10/15/2023 Time: 12:31 Bed 12 Private MD: ED Physician Darrell Moura HPI: 10/14 13:08 This 53 yrs old Male presents to ER via Ambulatory with complaints of Back Pain. sp3 13:08 53-year-old male with a history of bipolar disease, anxiety, prior [place], alcoholism, sp3 prior PE (not recently and patient on no anticoagulants) presents to the ED with right-sided flank pain worse with movement and twitching of the muscles. Patient states he may have "strained it". He denies any direct injury or fall. He denies any chest pain, shortness of breath, prolonged immobilization, peripheral edema, known sick contacts, travel history, or any other signs or symptoms on ROS at this time. He also denies urinary symptoms including urinary frequency, dysuria or gross visual hematuria.. Historical: - Allergies: 12:35 NKDA; ll1 - PMHx: 12:35 Anxiety; Bipolar disorder; Myocardial infarction; Alcoholism; PE; ll1 - PSHx: 12:35 ankle surgery; ll1 - Immunization history:: Adult Immunizations up to date. - Infectious Disease History:: Denies. - Social history:: Smoking status: Patient reports use of chewing tobacco. Patient denies any tobacco usage or history of. ROS: 13:09 Constitutional: Negative for fever, chills, and weight loss, Eyes: Negative for injury, sp3 pain, redness, and discharge, ENT: Negative for injury, pain, and discharge, Neck: Negative for injury, pain, and swelling, Cardiovascular: Negative for chest pain, palpitations, and edema, Respiratory: Negative for shortness of breath, cough, wheezing, and pleuritic chest pain, Abdomen/GI: Negative for abdominal pain, nausea, vomiting, diarrhea, and constipation, MS/Extremity: Negative for injury and deformity, Skin: Negative for injury, rash, and discoloration, Neuro: Negative for headache, weakness, numbness, tingling, and seizure, Psych: Negative for depression, anxiety, suicide ideation, homicidal ideation, and hallucinations, Allergy/Immunology: Negative for hives, rash, and allergies, Endocrine: Negative for neck swelling, polydipsia, polyuria, polyphagia, and marked weight changes, 13:09 All other systems are negative, Exam: 13:10 Constitutional: This is a well developed, well nourished patient who is awake, alert, sp3 and in no acute distress. Head/Face: Normocephalic, atraumatic. Eyes: Pupils equal round and reactive to light, extra-ocular motions intact. Lids and lashes normal. Conjunctiva and sclera are non-icteric and not injected. Cornea within normal limits. Periorbital areas with no swelling, redness, or edema. Neck: Trachea midline, no thyromegaly or masses palpated, and no cervical lymphadenopathy. Supple, full range of motion without nuchal rigidity, or vertebral point tenderness. No Meningismus. Chest/axilla: Normal chest wall appearance and motion. Nontender with no deformity. No lesions are appreciated. Cardiovascular: Regular rate and rhythm with a normal S1 and S2. No gallops, murmurs, or rubs. Normal PMI, no JVD. No pulse deficits. Respiratory: Lungs have equal breath sounds bilaterally, clear to auscultation and percussion. No rales, rhonchi or wheezes noted. No increased work of breathing, no retractions or nasal flaring. Abdomen/GI: Soft, non-tender, with normal bowel sounds. No distension or tympany. No guarding or rebound. No evidence of tenderness throughout. Skin: Warm, dry with normal turgor. Normal color with no rashes, no lesions, and no evidence of cellulitis. MS/ Extremity: Pulses equal, no cyanosis. Neurovascular intact. Full, normal range of motion. Neuro: Awake and alert, GCS 15, oriented to person, place, time, and situation. Cranial nerves II-XII grossly intact. Motor strength 5/5 in all extremities. Sensory grossly intact. Cerebellar exam normal. Normal gait. Psych: Awake, alert, with orientation to person, place and time. Behavior, mood, and affect are within normal limits. 13:10 Back: Patient has pain to palpation along the musculature of the back on the right side in the flank area. No CVA tenderness and abdominal exam is completely normal. Distal neurovascular exam is also normal., 13:26 ECG was reviewed by the Attending Physician. EKG demonstrates normal sinus rhythm at 91 sp3 bpm with normal intervals, normal QRS, normal axis, nonspecific diffuse ST's ST changes without evidence of acute ischemia. Vital Signs: 12:35 BP 150 / 90; Pulse 88; Resp 18; Temp 98.6; Pulse Ox 100% ; Weight 99.79 kg; Height 5 ll1 ft. 10 in. ; Pain 10/10; 12:35 Body Mass Index 31.57 (99.79 kg, 177.8 cm) ll1 12:35 Pain Scale: Adult ll1 MDM: 12:38 Patient medically screened. sp3 13:10 Data reviewed: vital signs, nurses notes, old medical records, lab test result(s), EKG, sp3 radiologic studies. ED course: 53-year-old male with right flank pain in the musculature. Differential diagnosis includes probable muscle strain/MSK insult. Due to his prior history, [place] and PE have to be on the list however I am not highly suspicious of these items. pathology has been clinically ruled out. Will obtain rib series on the right, troponin, D-dimer and treat with ketorolac IM. If workup is negative, we will discharge patient home on oral NSAID and muscle relaxer.. 14:26 ED course: Workup negative. Will discharge on NSAID and muscle relaxer at this time.. 3 10/14 13:08 Order name: D-Dimer; Complete Time: 14:26 3 10/14 13:08 Order name: Troponin High Sensitivity; Complete Time: 14:26 3 10/14 12:59 Order name: Ribs Right XRAY; Complete Time: 14:02 3 10/14 13:08 Order name: EKG; Complete Time: 13:08 sp3 10/14 13:08 Order name: EKG - Nurse/Tech; Complete Time: 13:25 3 10/14 13:25 Order name: IV Start; Complete Time: 13:25 ll1 Administered Medications: 13:25 Drug: Ketorolac IM 30 mg IM once {Note: R AC, given IV.} Route: IM; Site: Other; ll1 14:44 Follow up: Response: No adverse reaction ll1 14:44 Drug: Cyclobenzaprine PO 10 mg PO once Route: PO; ll1 14:44 Follow up: Response: No adverse reaction ll1 Disposition Summary: 10/15/23 14:26 Discharge Ordered Notes: Location: Home sp3 Condition: Stable sp3 Diagnosis - Muscle strain back sp3 Followup: sp3 - With: Private Physician - When: Upon discharge from the Emergency Department - Reason: Continuance of care Discharge Instructions: - Discharge Summary Sheet sp3 - Muscle Strain sp3 Forms: - Medication Reconciliation Form sp3 - Antibiotic Education sp3 - Prescription Opioid Use sp3 - Patient Portal Instructions sp3 - Leadership Thank You Letter sp3 Prescriptions: - Diclofenac Sodium 75 mg Oral Tablet Sustained Release - take 1 tablet ORAL route 2 times per day; 30 tablet; Refills: 0, Product sp3 Selection Permitted - Cyclobenzaprine 5 mg Oral Tablet - take 1 tablet ORAL route 3 times per day As needed; 15 tablet; Refills: 0, sp3 Product Selection Permitted Signatures: Dispatcher [employer] Maureen Mcdonald, RN RN ll1 Darrell Moura MD MD sp3 Corrections: (The following items were deleted from the chart) 12:59 12:59 Ribs Right+RAD.RAD.BRZ ordered. EDMS GLEASON
--- NOTE | 2023-10-15 14:27 | ER ---
Nurse's Notes [facility] Name: Frank Polo Age: 53 yrs Sex: Male : 1970 Arrival Date: 10/15/2023 Time: 12:31 Bed 12 Private MD: Diagnosis: Muscle strain back Presentation: 10/14 12:35 Chief complaint: Patient states: Upper back pain and spasms getting worse over 2 weeks. ll1 Radiates into R trunk now. No trauma or falls. Coronavirus screen: Client denies travel out of the [place] in the last 14 days. At this time, the client does not indicate any symptoms associated with coronavirus-19. Ebola Screen: Patient denies travel to an Ebola-affected area in the 21 days before illness onset. Initial Sepsis Screen: Does the patient meet any 2 criteria? No. Patient's initial sepsis screen is negative. Does the patient have a suspected source of infection? No. Patient's initial sepsis screen is negative. Risk Assessment: Do you want to hurt yourself or someone else? Patient reports no desire to harm self or others. Onset of symptoms was October 01, 2023. 12:35 Method Of Arrival: Ambulatory ll1 12:35 Acuity: PRANAV 3 ll1 Triage Assessment: 12:37 General: Appears uncomfortable, Behavior is calm, cooperative, appropriate for age. ll1 Pain: Complains of pain in back. Historical: - Allergies: 12:35 NKDA; ll1 - PMHx: 12:35 Anxiety; Bipolar disorder; Myocardial infarction; Alcoholism; PE; ll1 - PSHx: 12:35 ankle surgery; ll1 - Immunization history:: Adult Immunizations up to date. - Infectious Disease History:: Denies. - Social history:: Smoking status: Patient reports use of chewing tobacco. Patient denies any tobacco usage or history of. Screenin:37 [facility] ED Fall Risk Assessment (Adult) History of falling in the last 3 months, ll1 including since admission No falls in past 3 months (0 pts) Confusion or Disorientation No (0 pts) Intoxicated or Sedated No (0 pts) Impaired Gait Yes (1 pt) Mobility Assist Device Used No (0 pt) Altered Elimination No (0 pt) Score/Fall Risk Level 0 - 2 = Low Risk Maintained a safe environment, Hourly rounding (assess needs \T\ fall precautionary measures) done. Abuse screen: Denies threats or abuse. Nutritional screening: No deficits noted. Tuberculosis screening: No symptoms or risk factors identified. Assessment: 13:26 Reassessment: No changes from previously documented assessment. Patient and/or family ll1 updated on plan of care and expected duration. Pain level reassessed. Patient is alert, oriented x 3, equal unlabored respirations, skin warm/dry/pink. 13:30 Reassessment: Requested muscle spasm medication, but unable to pay for any ll1 prescriptions until he gets paid on Thursday. Dr. Moura informed of situation and concerns. Vital Signs: 12:35 BP 150 / 90; Pulse 88; Resp 18; Temp 98.6; Pulse Ox 100% ; Weight 99.79 kg; Height 5 ll1 ft. 10 in. ; Pain 10/10; 12:35 Body Mass Index 31.57 (99.79 kg, 177.8 cm) ll1 12:35 Pain Scale: Adult ll1 ED Course: 12:33 Patient arrived in ED. im 12:34 Darrell Moura MD is Attending Physician. sp3 12:36 Triage completed. ll1 12:36 Arm band placed on Patient placed in an exam room, on a stretcher. ll1 13:25 Initial lab(s) drawn, by me, sent to lab. EKG done, by ED staff, reviewed by Darrell Moura MD. Inserted saline lock: 22 gauge in right antecubital area, using aseptic technique. Blood collected. 13:38 Patient has correct armband on for positive identification. Bed in low position. ll1 Provided Education on: ER procedures and process. 13:39 Ribs Right XRAY In Process Unspecified. EDMS 14:32 Maureen Soria, EDISON is Primary Nurse. ll1 14:45 No provider procedures requiring assistance completed. IV discontinued, intact, ll1 bleeding controlled, No redness/swelling at site. Pressure dressing applied. Administered Medications: 13:25 Drug: Ketorolac IM 30 mg IM once {Note: R AC, given IV.} Route: IM; Site: Other; ll1 14:44 Follow up: Response: No adverse reaction ll1 14:44 Drug: Cyclobenzaprine PO 10 mg PO once Route: PO; ll1 14:44 Follow up: Response: No adverse reaction 1 Medication: 13:37 VIS not applicable for this client. ll1 Outcome: 14:26 Discharge ordered by . sp3 14:45 Discharged to home ambulatory, 1 14:45 Condition: stable 14:45 Discharge instructions given to patient, Instructed on discharge instructions, follow up and referral plans. medication usage, Demonstrated understanding of instructions, follow-up care, medications, Prescriptions given X 2, 14:47 Patient left the ED. 1 Signatures: Dispatcher [employer] Maureen Mcdonald RN RN ll1 Darrell Moura MD MD sp3 Julianna Patel
[2023-10-15] MEDS ORDERED: CYCLOBENZAPRINE 10 MG TAB ONE (14:36)
[2023-10-15 14:58] VITALS: BP 150/90; TEMP 98.6; O2SAT 100
--- NOTE | 2023-10-16 16:52 | EKG ---
Test Date: 2023-10-15 Test Time: 13:22:56 [employer] Supervisor: FRAN MEASUREMENT RESULTS: Intervals: Rate: 91 MA: 168 QRSD: 80 QT: 344 QTc: 423 [place]: P: 29 MA: 168 QRS: 23 T: 40 INTERPRETIVE STATEMENTS: Normal sinus rhythm Low voltage QRS Borderline ECG Compared to ECG 09/08/2023 14:13:11 Low QRS voltage now present ST (T wave) deviation no longer present Electronically Signed On 10-16-23 16:48:48 CDT by Stan Salmeron
== END 2023-10-15 14:47 | disposition home or self-care (01) ==
LOC: ER 12:31
DX: S39.012A Strain of muscle, fascia and tendon of lower back, initial encounter (principal)
CPT/HCPCS: 36415; 84484; 85379; 93005; 96372; 99284

== ENCOUNTER 2023-12-23 16:22 | Emergency (ER) | payer OTHER ==
[2023-12-23] MEDS ORDERED: SUCCINYLCHOLINE 20 MG/ML (10 ML) IV ONE (16:23)
[2023-12-23] MEDS ORDERED: ETOMIDATE 20 MG/10 ML VIAL IV ONE (16:23)
[2023-12-23] MEDS ORDERED: FAMOTIDINE 20 MG/2 ML VIAL IV ONE (16:33)
[2023-12-23] MEDS ORDERED: NA CHLORIDE 0.9% 100 ML ONE (16:34)
[2023-12-23] MEDS ORDERED: NA CHLORIDE 0.9% 1,000 ML ONE ×3 (16:34→18:11)
[2023-12-23] MEDS ORDERED: PIPERACIL/TAZO 3.375 GM VIAL IV ONE (16:35)
[2023-12-23] MEDS ORDERED: MIDAZOLAM HCL 2 MG/2 ML INJ ONE ×2 (16:54→19:41)
--- NOTE | 2023-12-23 16:59 | RAD REPORT ---
EXAM DESCRIPTION: CT - Head C Spine Cap W Con - 12/23/2023 4:43 pm CLINICAL HISTORY: Trauma, head and neck injury. Chest, abdomen and pelvis pain. TRAUMA COMPARISON: Head C Spine Cap W Con dated 07/22/2019 TECHNIQUE: CT head without contrast. CT cervical spine without contrast with coronal and sagittal reformatted images. CT chest, abdomen and pelvis with coronal and sagittal reformatted images of the spine. All CT scans are performed using dose optimization technique as appropriate and may include automated exposure control or mA/KV adjustment according to patient size. FINDINGS: CT HEAD WITHOUT CONTRAST: No intracranial hemorrhage, hydrocephalus or extra-axial fluid collection. No acute large vascular te rritory infarct. The paranasal sinuses and mastoids are clear. The calvarium is intact. CT CERVICAL SPINE WITHOUT CONTRAST: No fracture or subluxation. Multilevel cervical spondylosis with varying degrees of neural foraminal narrowing. No high-grade central spinal stenosis. The prevertebral soft tissues are normal in thickness. CT CHEST, ABDOMEN, PELVIS: Thorax: Chest Wall: No abnormal mass Lungs: Dependent airspace disease which may represent aspiration. Pleura: No effusions or pneumothorax. Faiza/Mediastinum: No lymphadenopathy. Small hiatal hernia . Aorta/Pulmonary Arteries: Unremarkable Heart: Normal size. Abdomen/Pelvis: Liver: Hepatic steatosis Biliary: No biliary ductal dilatation. Stomach: No significant focal abnormality. Duodenum: No significant focal abnormality. Pancreas: No significant abnormality. Spleen: No significant abnormality. Adrenal: No suspicious lesions. Kidney/ureter: No hydronephrosis. No renal calculi. Retroperitoneum: No retroperitoneal adenopathy. Vascular: No aneurysm. Bowel: No significant focal abnormality. Peritoneum: No ascites or free air. Bladder: Grossly unremarkable. Reproductive: No adnexal masses. Bones: No acute fracture. Other: n/a IMPRESSION: Negative for acute traumatic findings. Mild dependent airspace disease likely reflecting aspiration.
[2023-12-23] MEDS ORDERED: FOLIC ACID 1 MG, MULTIVITAMINS INJ 10 ML, THIAMINE HCL 100 MG in NA CHLORIDE 0.9% 1,000 ML IV ONE (17:00)
[2023-12-23] MEDS ORDERED: LIDOCAINE VISCOUS 2% 10ML ORAL SOLN ONE (17:01)
[2023-12-23 17:03] LABS: Absolute Basophils 0.1 K/uL (0-0.5); Absolute Eosinophils 0.1 K/uL (0-0.5); Absolute Monocytes 0.4 K/uL (0.1-1.3); Absolute Neutrophil 7.2 K/uL (1.8-8.0); Basophils % 0.6 % (0-1.3); Eosinophils % 0.5 % (0-4.4); Hematocrit 47.5 % (39.6-49.0); Hemoglobin 15.5 g/dL (13.6-17.9); Lymphocytes % 27.5 % (15.3-44.8); MCH 26.8 pg (27.0-35.0); MCHC 32.7 g/dL (32.0-36.0); MCV 81.9 fL (80-100); MPV 7.7 fL (7.6-11.3); Monocytes % 3.8 % (3.3-12.3); Neutrophils % 67.6 % (41.7-73.7); Nucleated Red Blood Cells % 0.1 % (0-0); Platelets 284 thou/uL (152-406)
--- NOTE | 2023-12-23 17:05 | RAD REPORT ---
EXAM DESCRIPTION: CT - CTFB CLINICAL HISTORY: PAIN COMPARISON: No comparisons TECHNIQUE: Axial 2 mm thick images of the face were obtained with sagittal and coronal reconstructio n images. All CT scans are performed using dose optimization technique as appropriate and may include automated exposure control or mA/KV adjustment according to patient size. FINDINGS: Age indeterminate right nasal bone fractures without significant displacement but mild ang ulation.The mandible is intact. The globes and orbital contents are grossly unremarkable.The paranasal sinuses and mastoids are clear . IMPRESSION: Age indeterminate nondisplaced right nasal bone fracture.
[2023-12-23 17:09] LABS: PT Prothrombin Time 13.2 SECONDS (9.4-12.5); PTT, Activated Partial Thromb 31.2 SECONDS (24.3-36.9); Protime INR 1.18
[2023-12-23] MEDS ORDERED: IPRATROPIUM BROM 0.5MG/2.5ML ONE (17:13)
[2023-12-23] MEDS ORDERED: LEVALBUTEROL 1.25 MG/3 ML NEB ONE (17:13)
[2023-12-23 17:17] LABS: SARS-CoV-2 Antigen CONTROL BLUE LINE VIS/BG OK; SARS-CoV-2 Antigen Rapid Res Negative (Negative)
[2023-12-23 17:18] LABS: Specific Gravity 1.019 (1.005-1.030); Sqamous Epithelial None Seen /HPF (None Seen); Urine Bacteria None Seen /HPF (<20); Urine Bilirubin NEGATIVE (Negative); Urine Blood Negative (Negative); Urine Clarity Clear (Clear); Urine Color Light-Yellow (Yellow); Urine Culture Reflex Order NOT NEEDED; Urine Glucose NEGATIVE (Negative); Urine Ketones NEGATIVE (Negative); Urine Microscopic Reflex YN ORDER UMIC; Urine Mucus Slight /HPF (None Seen); Urine Nitrite NEGATIVE (Negative); Urine Protein TRACE (Negative); Urine RBC <5 /HPF (None Seen); Urine Urobilinogen Normal (Normal); Urine WBC <5 /HPF (<5)
[2023-12-23 17:22] LABS: ALT/SGPT 41 U/L (16-61); AST/SGOT 40 U/L (15-37); Alkaline Phosphatase 83 U/L (45-117); Anion Gap 12.7 mEq/L (5.0-15.0); BUN Blood Urea Nitrogen 15 mg/dL (7-18); Bicarbonate 26 mEq/L (21-32); Bilirubin Total 0.3 mg/dL (0.2-1.0); Glomerular Filtration Rate 77 ml/min (=/>90); Glucose Level 103 mg/dL (74-106); Magnesium 2.5 mg/dL (1.6-2.4); NT PRO-BNP 17 pg/mL (<125); Potassium 3.7 mEq/L (3.5-5.1); Sodium Level 143 mEq/L (136-145)
[2023-12-23 17:22] LABS: Barbiturates NEGATIVE (NEGATIVE); Benzodiazepines NEGATIVE (NEGATIVE); Cocaine NEGATIVE (NEGATIVE); METHAMPHETAM NEGATIVE (NEGATIVE); Methadone NEGATIVE (NEGATIVE); Opiates NEGATIVE (NEGATIVE); Phencyclidine NEGATIVE (NEGATIVE); THC Cannibis NEGATIVE (NEGATIVE)
[2023-12-23 17:23] LABS: Bilirubin Direct < 0.2 mg/dL (0-0.2); Bilirubin Indirect, Calculated 0.1 mg/dL (0.2-0.8); Troponin High Sensitivity < 3.0 pg/mL (<58.9)
--- NOTE | 2023-12-23 17:28 | RAD REPORT ---
EXAM DESCRIPTION: RAD - Chest Single View - 12/23/2023 5:20 pm CLINICAL HISTORY: COUGH COMPARISON: 12/23/2023 FINDINGS: Enteric tube is in place into the stomach. Again noted are mild basilar airspace disease. IMPRESSION: Enteric tube terminates in the stomach in satisfactory position.
[2023-12-23] MEDS ORDERED: MIDAZOLAM HCL IN 0.9 % NACL/PF 100 MG/100 ML BAG IVPB ONE (17:57)
--- NOTE | 2023-12-23 18:30 | RAD REPORT ---
EXAM DESCRIPTION: RAD - Chest Single View - 12/23/2023 6:22 pm CLINICAL HISTORY: post intubation COMPARISON: Chest Single View dated 12/23/2023; Chest Single View dated 09/08/2023; Chest Single View d ated 06/02/2022; Chest Single View dated 03/03/2022; Head C Spine Cap W Con dated 12/23/2023 FINDINGS: Lines: Endotracheal tube at the aortic arch . NG tube below the diaphragm. Lungs: Increasing consolidation in the right upper lobe with volume loss likely reflecting lobar edy apse. The left lung is clear . Pleural: No significant pleural effusions or pneumothorax. Cardiac: The heart size is within normal limits. Mediastinum: Within normal limits. Bones: No acute fractures. Other: None IMPRESSION: Endotracheal tube in satisfactory position. Interval development of right upper lobe col lapse with mediastinal shift. This could be secondary to aspiration and mucous plugging.
[2023-12-23 18:33] LABS: Arterial Blood Carboxyhemoglob 1.4 % (0-1.5); Blood Gas Oxyhemoglobin 92.1 % (94-97); Blood Gas THB 15.1 g/dl (12-18)
--- NOTE | 2023-12-23 18:52 | EDPHYS ---
Physician Documentation [facility] Name: Frank Polo Age: 53 yrs Sex: Male : 1970 Arrival Date: 12/23/2023 Time: 16:22 Bed 4 Private MD: ED Physician Tay Key HPI: 12/22 18:41 This 53 yrs old Male presents to ER via EMS with complaints of Unresponsive. amy 18:41 The patient has shortness of breath and the patient has a history of alcoholic. amy Duration: The symptoms are continuous, and are steadily getting worse. The patient's shortness of breath is aggravated by nothing, is alleviated by nothing. found unresponsive, bloody face. The patient presents with decreased responsiveness. Possible causes: CVA or TIA, drug use, alcohol, head injury, low blood sugar, seizure, sepsis, unknown. Current symptoms: In the emergency department the patient's symptoms are unchanged from the initial presentation, despite EMS interventions. Patient's baseline: Neuro: alert and fully oriented. Severity of symptoms: At their worst the symptoms were severe in the emergency department the symptoms are unchanged. It is unknown whether or not the patient has had similar symptoms in the past. Historical: - Allergies: 16:28 NKDA; kc6 - PMHx: 16:28 Alcoholism; Anxiety; Bipolar disorder; Myocardial infarction; PE; kc6 - PSHx: 16:28 ankle surgery; kc6 - Immunization history:: Adult Immunizations unknown. - Infectious Disease History:: Denies. - Social history:: Smoking status: unknown. - Family history:: not pertinent. ROS: 18:41 All other systems are negative, amy 18:41 All other systems are negative, 18:41 All other systems are negative, 18:41 Unable to obtain ROS due to obtunded state, Exam: 18:41 Constitutional: The patient appears in obvious distress, moderately distressed, amy 18:41 Head/face: Noted is abrasion(s), contusion, erythema, that is moderate, of the forehead, right eye, right cheek, nose, left cheek, left eye and mouth, 18:41 Cardiovascular: Rate: tachycardic, actual rate is 120 bpm, Rhythm: regular, Heart sounds: normal, normal S1and S2, no S3 or S4, no murmur, no rub, no gallop, Edema: is not appreciated, JVD: is not appreciated, 18:41 ECG was reviewed by the Attending Physician. Vital Signs: 16:24 Pulse 140; Pulse Ox 84% on R/A; kc6 17:06 BP 134 / 75; Pulse 113; Resp 20 S; Pulse Ox 96% on Non-rebreather mask; kc6 17:20 BP 163 / 94; Pulse 110; Resp 14; Pulse Ox 92% on 15 lpm Non-rebreather mask; ld1 17:40 BP 161 / 88; Pulse 119; Resp 31; Pulse Ox 98% on Non-rebreather mask; ld1 18:00 BP 128 / 82; Pulse 110; Resp 16; Pulse Ox 100% on ETT vent; ld1 18:08 BP 128 / 82; Pulse 112; Resp 20; Pulse Ox 95% on ETT vent; ld1 18:15 Weight 87.09 kg (M); kc6 18:15 BP 141 / 88; Pulse 106; Resp 16; Pulse Ox 96% on ETT vent; ld1 18:16 Weight 94.35 kg; ld1 20:00 BP 106 / 63; Pulse 96; Resp 16; Temp 97.8(Ca); Pulse Ox 99% ; kd3 22:23 BP 142 / 74; Pulse 98; Resp 19; Pulse Ox 99% on ETT vent; kd3 Procedures: 18:47 Intubation: Ventilated with 100% NRB prior to procedure. O2 saturation prior to amy procedure was 85 %. Intubated orally using # 4 Carloz blade with 8.0 mm ETT. was successful on first attempt. Ventilated with Ambu bag. Cricoid pressure applied during procedure. Tube secured at right side of mouth measured 26 cm at lip. Placement verified by CXR, CO2 detector with (+) color change, auscultating bilateral breath sounds, O2 saturation after procedure was 100 %. Patient tolerated well. MDM: 16:23 Patient medically screened. amy 18:47 Differential diagnosis: Bronchitis CHF exacerbation, Chronic Obstructive Pulmonary amy Disease pneumonia, Pulmonary Embolism reactive airway disease, Sepsis Unstable Angina. Antibiotic administration: zosyn. Differential Diagnosis altered mental status, sepsis, flu. Differential Diagnosis: CVA, electrolyte abnormality, alcohol intoxication, hypoglycemia, intracranial bleed, meningitis, overdose, pneumonia, seizure, sepsis, TIA, UTI, volume depletion. Immunization status: Influenza vaccine: within last 5 years. Data reviewed: vital signs, nurses notes, EMS record, lab test result(s), EKG, radiologic studies, CT scan. Consideration of Admission/Observation Patient was admitted/placed on observation. Escalation of care including admission/observation considered. I considered the following discharge prescriptions or medication management in the emergency department Medications were administered in the Emergency Department. See MAR. Independent interpretation of the following test(s) in the Emergency Department EKG: See my EKG interpretation above. Test considered but Not performed: Ultrasound no abd usg. 12/22 16:25 Order name: Basic Metabolic Panel; Complete Time: 18:03 [facility] 12/22 16:25 Order name: CBC with Diff; Complete Time: 18:03 [facility] 12/22 16:25 Order name: LFT's; Complete Time: 18:03 [facility] 12/22 16:25 Order name: Magnesium; Complete Time: 18:03 [facility] 12/22 16:25 Order name: NT PRO-BNP; Complete Time: 18:03 [facility] 12/22 16:25 Order name: PT-INR; Complete Time: 18:03 [facility] 12/22 16:25 Order name: Troponin HS; Complete Time: 18:03 [facility] 12/22 16:25 Order name: Acetaminophen; Complete Time: 18:03 [facility] 12/22 16:25 Order name: ETOH Level; Complete Time: 18:03 [facility] 12/22 16:25 Order name: Ptt, Activated; Complete Time: 18:03 [facility] 12/22 16:25 Order name: Salicylate; Complete Time: 18:03 [facility] 12/22 16:25 Order name: Urinalysis w/ reflexes; Complete Time: 18:03 [facility] 12/22 16:25 Order name: Urine Drug Screen; Complete Time: 18:03 [facility] 12/22 16:27 Order name: ABG [facility] 12/22 16:27 Order name: Blood Culture Adult (2) [facility] 12/22 16:27 Order name: Lactate w/ 2H reflex if indic.; Complete Time: 18:03 [facility] 12/22 16:27 Order name: SARS RAPID; Complete Time: 18:03 [facility] 12/22 16:27 Order name: Influenza Screen (a \T\ B); Complete Time: 18:03 [facility] 12/22 17:11 Order name: Glucose, Ancillary Testing; Complete Time: 18:03 [facility] 12/22 19:22 Order name: Ghost Lactate-NO COLLECT Timer; Complete Time: 19:55 [facility] 12/22 21:22 Order name: Lactate Sepsis 2 HR Follow-up; Complete Time: 22:28 [facility] 12/22 16:25 Order name: XRAY Chest (1 view); Complete Time: 18:03 [facility] 12/22 16:25 Order name: CT Traumagram (Head C Spine CAP W Con); Complete Time: 18:03 [facility] 12/22 16:25 Order name: Facial Bones W/O Con CT; Complete Time: 18:03 [facility] 12/22 18:03 Order name: Chest Single View XRAY; Complete Time: 18:37 [facility] 12/22 16:25 Order name: Cardiac monitoring; Complete Time: 16:31 [facility] 12/22 16:25 Order name: EKG - Nurse/Tech; Complete Time: 16:38 [facility] 12/22 16:25 Order name: IV Saline Lock; Complete Time: 16:39 [facility] 12/22 16:25 Order name: Labs collected and sent; Complete Time: 16:39 [facility] 12/22 16:25 Order name: O2 Per Protocol; Complete Time: 16:31 [facility] 12/22 16:25 Order name: O2 Sat Monitoring; Complete Time: 16:31 [facility] 12/22 16:27 Order name: Hernandez; Complete Time: 17:05 [facility] 12/22 17:15 Order name: NG Tube; Complete Time: 17:17 [facility] 12/22 18:03 Order name: Restraint:Violent/Self Destructive (Adult:18yo or >); Complete Time: 18:08 [facility] 12/22 18:10 Order name: Misc. Order: vent 16,ac, 550 cc, 100, peep 5; Complete Time: 18:16 [facility] 12/22 19:01 Order name: Misc. Order: RT TO ENTER DISCUSSED ORDERS; Complete Time: 19:13 [facility] EC:41 Rate is 120 beats/min. Rhythm is regular. QRS [place] is Normal. IN interval is normal. [facility] QRS interval is normal. QT interval is normal. No Q waves. T waves are Normal in leads II, III, aVF, V4, V5, V6. Clinical impression: Sinus tachycardia. Interpreted by me. Reviewed by me. Administered Medications: 22:49 Discontinued: midazolam ivp or0.01 mg/kg/h IV at per protocol See Administration kd3 Instructions; (Standard concentration: 100 mg / 100 mL NS); Recommended max rate 0.1 mg/kg/hr; Titrate 0.01 mg/kg/hr as often as every 30 minutes to achieve goal (see titration policy); Goal parameter RASS 0 to -2 17:05 Drug: Thiamine IV 100 mg IV at bolus once Route: IV; Rate: bolus; Site: right kc6 antecubital; 17:05 Drug: NS 0.9% IV 1000 ml IV at 1 bolus Per protocol; 1000 mL bolus Route: IV; Rate: 1 kc6 bolus; Site: right antecubital; 17:05 Drug: Banana Bag - (Multivitamin IV 1 amp, NS 0.9% IV 1000 ml, Thiamine IV 100 mg, kc6 foLIC Acid IVPB 1 mg) IV at 150 ml/hr once Route: IV; Rate: 150 ml/hr; Site: right antecubital; 17:06 Drug: Piperacillin-Tazobactam IVPB 3.375 grams IVPB once over 60 mins; (mix in NS 100 kc6 mL) Route: IVPB; Infused Over: 60 mins; Site: right antecubital; 17:06 Drug: Famotidine IVP 20 mg IVP once; dilute with 10 mL 0.9% NaCl; give over 2 minutes kc6 Route: IVP; Site: right antecubital; 17:15 Drug: Levalbuterol Inhalation 3.75 mg Inhalation once Route: Inhalation; kc6 17:15 Drug: Ipratropium Inhalation Aerosol 0.5 mg Inhalation once Route: Inhalation; kc6 17:51 Drug: Midazolam IVP or IV 4 mg IVP once Route: IVP; Site: left antecubital; ld1 17:53 Drug: Etomidate IVP 20 mg IVP once Route: IVP; Site: left antecubital; ld1 18:00 Drug: NS 0.9% IV 1000 ml IV at 1 bolus Per protocol; 1000 mL bolus Route: IV; Rate: 1 ld1 bolus; Site: left antecubital; 18:10 Drug: Midazolam IVP or IV 0.01 mg/kg/h IV at per protocol See Administration kc6 Instructions; (Standard concentration: 100 mg / 100 mL NS); Recommended max rate 0.1 mg/kg/hr; Titrate 0.01 mg/kg/hr as often as every 30 minutes to achieve goal (see titration policy); Goal parameter RASS 0 to -2 Route: IV; Rate: per protocol; Site: right antecubital; 18:17 Follow up: Response: No adverse reaction; RASS: Light sedation (-2); Rate change 4 [id number] 19:05 Follow up: Response: No adverse reaction; RASS: Light sedation (-2); Rate change 4 boluskc6 19:06 Follow up: Response: No adverse reaction; RASS: Light sedation (-2); Rate change 4 mg/hrkc6 19:45 Follow up: Rate change 6 mg/hr jb4 21:37 Follow up: Rate change 8 mg/hr kd3 21:51 Follow up: Rate change 10 mg/hr kd3 18:16 Drug: NS 0.9% IV 1000 ml IV at 1 bolus Per protocol; 1000 mL bolus Route: IV; Rate: 1 kc6 bolus; Site: left antecubital; 19:45 Drug: Midazolam IVP or IV 6 mg IVP once Route: IVP; Site: right antecubital; jb4 22:50 Drug: Propofol IV 5 mcg/kg/min IV at calculated rate See Administration Instructions; kd3 Standard concentration 1000 mg / 100 mL; Recommended max rate 50 mcg/kg/min; Titrate 2 mcg/kg/min every 5 minutes to achieve goal (see titration policy); Goal parameter RASS score 0 to -2 Route: IV; Rate: calculated rate; Site: right antecubital; 22:50 Follow up: Rate change 40 mcg/kg/min kd3 22:53 Drug: Norepinephrine IV 0.1 mcg/kg/min IV at calculated rate See Administration kd3 Instructions; (Standard concentration 4 mg / 250 mL D5W); Recommended max rate 3 mcg/kg/min; Titrate 0.05 mcg/kg/min as often as every 5 minutes to achieve goal (see titration policy); Goal parameter MAP greater than 65 mmHg. Route: IV; Rate: calculated rate; Site: left antecubital; Disposition: 18:50 Critical Care:. amy Disposition Summary: 12/23/23 20:04 Transfer Ordered Notes: Transfer Location: Other Acute Care Facility amy Reason: Higher level of care amy Condition: Fair(12/23/23 20:04) amy Problem: new(12/23/23 20:04) amy Symptoms: have improved(12/23/23 20:04) amy Accepting Physician: TO ICU(12/23/23 22:54) kd3 Diagnosis - Other pneumonia, unspecified organism - ASPIRATION amy - Dyspnea - RIGHT UPPER LOBE, ATX, WITH MEDIASTINAL SHIFT amy - Hypoxemia(12/23/23 20:04) amy - Acute respiratory failure(12/23/23 20:04) amy - Fall on same level, unspecified(12/23/23 20:04) amy - Facial Laceration/ Laceration with foreign body of cheek and temporomandibular amy area(12/23/23 20:04) - Fracture of nasal bones amy - Alcohol abuse with intoxication(12/23/23 20:04) amy - Obesity, unspecified amy Forms: - Medication Reconciliation Form amy - SBAR form amy Critical care time excluding procedures: 18:50 Critical care time: Bedside Care: 40 minutes, Consultation: 15 minutes. Total time: 55 amy minutes Signatures: Dispatcher [employer] EDMS Tay Key MD MD cha Bryson, James, RN RN jb4 Miranda Boudreaux RN RN ld1 Darrell Moura MD MD sp3 Jennifer Chavez RN RN kd3 Nitza White RN RN kc6 Corrections: (The following items were deleted from the chart) 16:26 16:26 Head C Spine CAP W Con+CT.RAD.BRZ ordered. EDSD EDSD 16:26 16:26 Facial Bones W/ MPR+CT.RAD.BRZ ordered. EDSD EDMS 18:04 18:04 Chest Single View+RAD.RAD.BRZ ordered. EDSD EDSD 18:19 16:25 Suicide Screening ([place]) ordered. amy kc6 19:58 18:52 Inpatient Admission amy amy 19:58 18:52 Ramos Ceballos amy amy 19:58 18:52 Intensive Care Unit amy amy 19:58 18:52 Serious amy amy 19:58 18:52 new amy amy 19:58 18:52 have improved amy amy 19:58 18:52 Standard amy amy 19:58 18:52 amy amy 19:58 18:52 Pneumonia due to other specified bacteria - aspiration amy amy 19:58 18:52 Alcohol abuse with intoxication amy amy 19:58 18:52 Hypoxemia amy amy 19:58 18:52 Acute respiratory failure amy amy 19:58 18:52 Fall on same level, unspecified [facility] 19:58 18:52 Facial Laceration/ Laceration with foreign body of cheek and temporomandibular amy area amy 22:25 20:04 TO ICU [facility] kd3 22:54 22:25 TO ICU kd3 kd3
--- NOTE | 2023-12-23 18:52 | ER ---
Nurse's Notes [facility] Name: Frank Polo Age: 53 yrs Sex: Male : 1970 Arrival Date: 12/23/2023 Time: 16:22 Bed 4 Private MD: Diagnosis: Other pneumonia, unspecified organism-ASPIRATION;Dyspnea-RIGHT UPPER LOBE, ATX, WITH MEDIASTINAL SHIFT;Hypoxemia;Acute respiratory failure;Fall on same level, unspecified;Facial Laceration/ Laceration with foreign body of cheek and temporomandibular area;Fracture of nasal bones;Alcohol abuse with intoxication;Obesity, unspecified Presentation: 12/22 16:24 Chief complaint: EMS states: they were toned out for an unresponsive male found supine kc6 on the concrete with an empty liquor bottle of ETOH next to him. EMS states pt was initially hypoxic with an SPO2 of 84% on RA. pt is now 94% on a NRB. BGL 120. Coronavirus screen: At this time, the client does not indicate any symptoms associated with coronavirus-19. Ebola Screen: No symptoms or risks identified at this time. Initial Sepsis Screen: Does the patient meet any 2 criteria? Altered Mental Status. HR > 90 bpm. Does the patient have a suspected source of infection? No. Patient's initial sepsis screen is negative. Risk Assessment: Do you want to hurt yourself or someone else? Unable to obtain. Onset of symptoms was December 23, 2023. 16:24 Method Of Arrival: EMS: [facility] 16:24 Acuity: PRANAV 2 kc6 Triage Assessment: 16:30 General: Appears distressed, uncomfortable, unkempt, Behavior is unresponsive. Arrived ld1 with blood to face, unresponsive to painful stimuli. 16:30 Pain: Unable to use pain scale. Patient is unresponsive. EENT: No signs and/or symptoms ld1 were reported regarding the EENT system. Neuro: Level of Consciousness is unresponsive, Oriented to none. Cardiovascular: No deficits noted. Respiratory: Airway is patent Respiratory effort is snoring the patient has moderate shortness of breath. GI: Abdomen is round non-distended. : No signs and/or symptoms were reported regarding the genitourinary system. Derm: Skin has skin tears on to left side of face and nose. Musculoskeletal: No signs and/or symptoms reported regarding the musculoskeletal system. Historical: - Allergies: 16:28 NKDA; kc6 - PMHx: 16:28 Alcoholism; Anxiety; Bipolar disorder; Myocardial infarction; PE; kc6 - PSHx: 16:28 ankle surgery; kc6 - Immunization history:: Adult Immunizations unknown. - Infectious Disease History:: Denies. - Social history:: Smoking status: unknown. - Family history:: not pertinent. Screenin:00 [facility] ED Fall Risk Assessment (Adult) History of falling in the last 3 months, ld1 including since admission Yes- single mechanical fall (1 pt) Confusion or Disorientation Yes (5 pts) Intoxicated or Sedated Yes (3 pts) Impaired Gait Yes (1 pt) Mobility Assist Device Used No (0 pt) Altered Elimination Yes (1 pt) Score/Fall Risk Level 3 or more points = High Risk Oriented to surroundings, Maintained a safe environment, Educated pt \T\ family on fall prevention, incl call for assistance when getting out of bed, Assessed \T\ reinforced patient's understanding of fall precautions, Provided non-skid footwear, Hourly rounding (assess needs \T\ fall precautionary measures) done, Used ambulatory aids as needed (educated on \T\ assisted with), Used gait belt as appropriate Implemented a Fall Risk Plan of Care, Apply high fall risk patient identification: yellow non skid footwear/ fall signage, Placed fall mat w/ non beveled edge next to bed, Activated bed/chair alarm, Remained w/in arm's length of patient and in sight while toileting, Offered frequent toileting (1:1 observation), Remained with patient while ambulating, Utilized family, sitter, or virtual bilingual secretary as indicated. Abuse screen: Denies threats or abuse. Denies injuries from another. Nutritional screening: No deficits noted. Tuberculosis screening: No symptoms or risk factors identified. Assessment: 16:27 Reassessment: Pt to CT at this time. ld1 17:00 Reassessment: No changes from previously documented assessment. Patient states symptoms ld1 have not improved. 17:00 Pain: Unable to use pain scale. Patient is unresponsive. ld1 17:35 Reassessment: ERP concerned about pt airway, pt SpO2 decreasing to 82% while on ld1 breathing treatment. Instructed to prepare for intubating at this time. 17:45 Reassessment: No changes from previously documented assessment. ERP at bedside - ld1 assisting with intubation at this time. RT at bedside providing care. 17:49 Reassessment: Requested soft restraint order. Verbal order given for safety of patient ld1 airway. See Restraint charting for continued notes. 18:15 Reassessment: Patient appears in no apparent distress at this time. Patient and/or ld1 family updated on plan of care and expected duration. Pain level reassessed. Pt airway placed by Dr. Key. SpO2 96% on vent. 18:29 Reassessment: Patient appears in no apparent distress at this time. Patient states ld1 symptoms have improved. 19:44 Reassessment: Pt trying to get up, received verbal order to give 6mg of Versed IVP x1 jb4 now. 20:20 General: Pt is Intubated and sedated. Soft wrist restraints in place. Q 2 hrs restraint kd3 charting in place. Pt is on a versed drip at 6 mg/ hr. Abrasion noted to the left check. Warm blankets applied to the patient. Hernandez catheter in place. Draining clear yellow urine. Client Ng tube in place at the right nare. . Respiratory: Ventilator assessment: ET Tube: 8.0 at lip. 28 at the lip. 22:10 Reassessment:. cp4 22:51 General: Appears in no apparent distress. Client changed to Propofol Drip per DR Martell talamantes3 for sedation. Levophed started at low dose. titrate per protocol . Vital Signs: 16:24 Pulse 140; Pulse Ox 84% on R/A; kc6 17:06 BP 134 / 75; Pulse 113; Resp 20 S; Pulse Ox 96% on Non-rebreather mask; kc6 17:20 BP 163 / 94; Pulse 110; Resp 14; Pulse Ox 92% on 15 lpm Non-rebreather mask; ld1 17:40 BP 161 / 88; Pulse 119; Resp 31; Pulse Ox 98% on Non-rebreather mask; ld1 18:00 BP 128 / 82; Pulse 110; Resp 16; Pulse Ox 100% on ETT vent; ld1 18:08 BP 128 / 82; Pulse 112; Resp 20; Pulse Ox 95% on ETT vent; ld1 18:15 Weight 87.09 kg (M); kc6 18:15 BP 141 / 88; Pulse 106; Resp 16; Pulse Ox 96% on ETT vent; ld1 18:16 Weight 94.35 kg; ld1 20:00 BP 106 / 63; Pulse 96; Resp 16; Temp 97.8(Ca); Pulse Ox 99% ; kd3 22:23 BP 142 / 74; Pulse 98; Resp 19; Pulse Ox 99% on ETT vent; kd3 ED Course: 16:23 Patient arrived in ED. [facility] 16:23 Tay Key MD is Attending Physician. [facility] 16:28 Triage completed. kc6 16:[address] via stretcher. kc6 16:28 Arm band placed on. kc6 16:28 Patient has correct armband on for positive identification. Placed in gown. Bed in low kc6 position. Call light in reach. Side rails up X2. court monitor on. Pulse ox on. NIBP on. Warm blanket given. Pillow given. 16:37 Inserted saline lock: 20 gauge in right upper arm, using aseptic technique. Blood ld1 collected. Flushed with 10 mL NS. 16:37 Inserted saline lock: 22 gauge in left antecubital area, using aseptic technique. Blood ld1 collected. Flushed with 10 mL NS. 16:45 CT Traumagram (Head C Spine CAP W Con) In Process Unspecified. EDMS 16:45 Facial Bones W/O Con CT In Process Unspecified. EDMS 17:15 Cleaned of incontinence. Linen changed. Pt clean at this time. ld1 17:19 Lactate w/ 2H reflex if indic. Sent. ar6 17:19 Blood Culture Adult (2) Sent. ar6 17:22 XRAY Chest (1 view) In Process Unspecified. EDMS 17:30 Hernandez cath inserted, using sterile technique, 16 Fr., by sales consultant insurance, balloon inflated, to ld1 gravity drainage, urine specimen collected. returned clear yellow urine. Patient tolerated well. 17:30 NGT: inserted 16 Fr. via right nare. other By Dr. Key verified placement of air ld1 over stomach, verified return of gastric contents, Placement verified by X-ray, to continuous suction. Returned gastric contents. Patient tolerated well. 17:51 Assisted provider with intubation using 8.0 mm ETT via oral route. ET tube secured at ld1 25cm at the teeth. Set up intubation tray. Intubated by Tay Key MD Placement verified by CO2 detector w/ + color change, auscultating bilateral breath sounds, CXR, Patient tolerated well. 17:59 Miranda Boudreaux, RN is Primary Nurse. ld1 18:17 initiated transfer to [facility], pt denied due to all [facility] on saturation bd per [place]. 18:21 initiated transfer to [facility]. bd 18:24 Chest Single View XRAY In Process Unspecified. EDMS 18:50 Ramos Ceballos MD is Hospitalizing Provider. amy 18:54 pt denied at [facility], transfer center will check pts med [facility],per Tracey. bd 19:52 [facility] Patients denied due to capacity. rv1 22:24 Provided Education on: Intubation . kd3 22:24 Patient transferred, IV remains in place. kd3 Restraints: 17:50 Non-Violent Restraint: Initiated on December 23, 2023 at 17:50 Staff present \T\ role on ld1 initiation: Dr. Key, Nitza White, EDISON, Miranda Boudreaux, EDISON, Respiratory staff Restraint Education provided to family/significant other/legally authorized independent sales representative. Actions/Behavior observed: Confused/disoriented, has difficulty remembering/follow instructions, has impaired decision making, has decreased level of consciousness, unable to follow instructions, Clinical justification for use: airway protection, patient safety, Mental status: confused, Circulation: Warm/dry, capillary refill WNL Skin integrity: Intact, healthy with good turgor Signs of injury related to restraint: No injuries noted. Range of Motion (ROM): performed. Hydration/Food: patient asleep. Elimination/Hygiene: with urinary catheter, Restraint status: Side rails up Started. Soft wrist restraint (Right) Started. Soft wrist restraint (Left) Started. Assuming responsibility of patient is restraints. Time restraints initiated: December 23, 2023 at 17:50 Circumstances for use: Safety of patient. Current patient physical, emotional \T\ behavioral status: subdued, unable to follow commands. Non-Violent Restraint: Order obtained. 20:00 Non-Violent Restraint: Restraint status: Side rails up Continued. Soft wrist restraint kd3 (Right) Continued. Soft wrist restraint (Left) Continued. Administered Medications: 22:49 Discontinued: midazolam ivp or0.01 mg/kg/h IV at per protocol See Administration kd3 Instructions; (Standard concentration: 100 mg / 100 mL NS); Recommended max rate 0.1 mg/kg/hr; Titrate 0.01 mg/kg/hr as often as every 30 minutes to achieve goal (see titration policy); Goal parameter RASS 0 to -2 17:05 Drug: Thiamine IV 100 mg IV at bolus once Route: IV; Rate: bolus; Site: right kc6 antecubital; 17:05 Drug: NS 0.9% IV 1000 ml IV at 1 bolus Per protocol; 1000 mL bolus Route: IV; Rate: 1 kc6 bolus; Site: right antecubital; 17:05 Drug: Banana Bag - (Multivitamin IV 1 amp, NS 0.9% IV 1000 ml, Thiamine IV 100 mg, kc6 foLIC Acid IVPB 1 mg) IV at 150 ml/hr once Route: IV; Rate: 150 ml/hr; Site: right antecubital; 17:06 Drug: Piperacillin-Tazobactam IVPB 3.375 grams IVPB once over 60 mins; (mix in NS 100 kc6 mL) Route: IVPB; Infused Over: 60 mins; Site: right antecubital; 17:06 Drug: Famotidine IVP 20 mg IVP once; dilute with 10 mL 0.9% NaCl; give over 2 minutes kc6 Route: IVP; Site: right antecubital; 17:15 Drug: Levalbuterol Inhalation 3.75 mg Inhalation once Route: Inhalation; kc6 17:15 Drug: Ipratropium Inhalation Aerosol 0.5 mg Inhalation once Route: Inhalation; kc6 17:51 Drug: Midazolam IVP or IV 4 mg IVP once Route: IVP; Site: left antecubital; ld1 17:53 Drug: Etomidate IVP 20 mg IVP once Route: IVP; Site: left antecubital; ld1 18:00 Drug: NS 0.9% IV 1000 ml IV at 1 bolus Per protocol; 1000 mL bolus Route: IV; Rate: 1 ld1 bolus; Site: left antecubital; 18:10 Drug: Midazolam IVP or IV 0.01 mg/kg/h IV at per protocol See Administration kc6 Instructions; (Standard concentration: 100 mg / 100 mL NS); Recommended max rate 0.1 mg/kg/hr; Titrate 0.01 mg/kg/hr as often as every 30 minutes to achieve goal (see titration policy); Goal parameter RASS 0 to -2 Route: IV; Rate: per protocol; Site: right antecubital; 18:17 Follow up: Response: No adverse reaction; RASS: Light sedation (-2); Rate change 4 boluskc6 19:05 Follow up: Response: No adverse reaction; RASS: Light sedation (-2); Rate change 4 boluskc6 19:06 Follow up: Response: No adverse reaction; RASS: Light sedation (-2); Rate change 4 mg/hrkc6 19:45 Follow up: Rate change 6 mg/hr jb4 21:37 Follow up: Rate change 8 mg/hr kd3 21:51 Follow up: Rate change 10 mg/hr kd3 18:16 Drug: NS 0.9% IV 1000 ml IV at 1 bolus Per protocol; 1000 mL bolus Route: IV; Rate: 1 kc6 bolus; Site: left antecubital; 19:45 Drug: Midazolam IVP or IV 6 mg IVP once Route: IVP; Site: right antecubital; jb4 22:50 Drug: Propofol IV 5 mcg/kg/min IV at calculated rate See Administration Instructions; kd3 Standard concentration 1000 mg / 100 mL; Recommended max rate 50 mcg/kg/min; Titrate 2 mcg/kg/min every 5 minutes to achieve goal (see titration policy); Goal parameter RASS score 0 to -2 Route: IV; Rate: calculated rate; Site: right antecubital; 22:50 Follow up: Rate change 40 mcg/kg/min kd3 22:53 Drug: Norepinephrine IV 0.1 mcg/kg/min IV at calculated rate See Administration kd3 Instructions; (Standard concentration 4 mg / 250 mL D5W); Recommended max rate 3 mcg/kg/min; Titrate 0.05 mcg/kg/min as often as every 5 minutes to achieve goal (see titration policy); Goal parameter MAP greater than 65 mmHg. Route: IV; Rate: calculated rate; Site: left antecubital; Medication: 22:24 VIS not applicable for this client. kd3 Outcome: 18:52 Decision to Hospitalize by Provider. amy 20:04 ER care complete, transfer ordered by MD. amy 22:24 Transferred by ground EMS kd3 22:24 Condition: stable 22:24 Discharge instructions given to patient, Instructed on the need for transfer, Demonstrated understanding of instructions, 22:25 Patient left the ED. kd3 22:54 Patient left the ED. kd3 Signatures: Dispatcher [employer] EDMS Glory Chand Tay Romero MD MD cha Bryson, James, Miranda Emery RN, RN RN ld1 Jennifer Chavez RN RN kd3 Nitza White RN RN kc6 Awa Calvillo 1 Jo-Ann Clinton 4 Yolis Degroot RN RN ar6 Corrections: (The following items were deleted from the chart) 18:29 16:24 Chief complaint: EMS states: they were toned out for an unresponsive male found ld1 supine on the concrete with an empty liter bottle of ETOH next to him. EMS states pt was initially hypoxic with an SPO2 of 84% on RA. pt is now 94% on a NRB. BGL 120 kc6 18:34 18:08 Non-Violent Restraint: Initiated on December 23, 2023 at 17:50 Staff present \T\ role ld1 on initiation: Dr. Key, Nitza White, EDISON, Miranda Boudreaux, EDISON, Respiratory staff Restraint Education provided to family/significant other/legally authorized independent sales representative. Actions/Behavior observed: Confused/disoriented, has difficulty remembering/follow instructions, has impaired decision making, has decreased level of consciousness, unable to follow instructions, Clinical justification for use: airway protection, patient safety, Mental status: confused, Circulation: Warm/dry, capillary refill WNL Skin integrity: Intact, healthy with good turgor Signs of injury related to restraint: No injuries noted. Range of Motion (ROM): performed. Hydration/Food: patient asleep. Elimination/Hygiene: with urinary catheter, Restraint status: Side rails up Started. Soft wrist restraint (Right) Started. Soft wrist restraint (Left) Started. Assuming responsibility of patient is restraints. Time restraints initiated: December 23, 2023 at 17:50 Circumstances for use: Safety of patient. Current patient physical, emotional \T\ behavioral status: subdued, unable to follow commands. ld1 18:34 18:08 Non-Violent Restraint: Order obtained. ld1 ld1 12/23 09:15 09:11 Reassessment: ld1 ld1
[2023-12-23] MEDS ORDERED: MIDAZOLAM HCL 5 ML ONE (21:25)
[2023-12-23] MEDS ORDERED: propofoL 1,000 MG/100 ML VIAL IV ONE (22:32)
[2023-12-23] MEDS ORDERED: NOREPINEPHRINE BITARTRATE/D5W 4 MG/250 ML KIT IV ONE (22:32)
[2023-12-23 23:40] VITALS: TEMP 97.8
[2023-12-24 00:30] VITALS: O2SAT 99
[2023-12-24 00:31] VITALS: BP 142/74
--- NOTE | 2023-12-24 13:07 | EKG ---
Test Date: 2023-12-23 Test Time: 16:22:15 [employer] Tester: JESSICA MEASUREMENT RESULTS: Intervals: Rate: 120 NV: 150 QRSD: 90 QT: 312 QTc: 440 [place]: P: 64 NV: 150 QRS: 79 T: -9 INTERPRETIVE STATEMENTS: Sinus tachycardia ST & T wave abnormality, consider inferior ischemia Abnormal ECG Compared to ECG 10/15/2023 13:22:56 ST (T wave) deviation now present Possible ischemia now present Sinus rhythm no longer present Electronically Signed On 12-24-23 13:05:14 CDT by Stan Salmeron
== END 2023-12-23 22:54 ==
LOC: ER 16:22
DX: J96.00 Acute respiratory failure, unspecified whether with hypoxia or hypercapnia (principal); J69.0 Pneumonitis due to inhalation of food and vomit; S02.2XXA Fracture of nasal bones, initial encounter for closed fracture; S01.411A Laceration without foreign body of right cheek and temporomandibular area, initial encounter; F10.229 Alcohol dependence with intoxication, unspecified; W18.30XA Fall on same level, unspecified, initial encounter; E66.9 Obesity, unspecified; Z78.1 Physical restraint status; Z11.52 Encounter for screening for COVID-19
CPT/HCPCS: 87040 ×2; 85025; 81001; 80048; 36415; 83735; 85610; 82947; 80076; 83605 ×2; 85730; 84484; 83880; 80307; 87804 ×2; 70450; 72125; 71260; 70486; 76377; 74177; 71045 ×2; 82805; 80143; 80179; 82077; 87811; 36600; 94002; 94003; Q9967; J3411; J2250 ×3; J7614; J2543; J7644; J7030 ×4; 93005; J2704

== ENCOUNTER 2024-05-23 14:09 | Emergency (ER) | payer OTHER ==
[2024-05-23 15:54] LABS: Absolute Lymphocytes (CBC) 1.5 K/uL (0.7-4.9); Absolute Monocytes 0.7 K/uL (0.1-1.3); Absolute Neutrophil 7.4 K/uL (1.8-8.0); Basophils % 0.2 % (0-1.3); Hematocrit 35.5 % (39.6-49.0); Hemoglobin 11.5 g/dL (13.6-17.9); Lymphocytes % 15.2 % (15.3-44.8); MCH 23.8 pg (27.0-35.0); MCHC 32.4 g/dL (32.0-36.0); MCV 73.5 fL (80-100); MPV 7.3 fL (7.6-11.3); Monocytes % 7.1 % (3.3-12.3); Neutrophils % 77.5 % (41.7-73.7); Platelets 273 thou/uL (152-406); RBC Red Blood Cell Count 4.82 M/uL (4.33-5.43); Red Cell Distribution Width 19.5 % (12.1-15.2)
[2024-05-23 15:59] LABS: PT Prothrombin Time 13.6 SECONDS (9.4-12.5); PTT, Activated Partial Thromb 25.5 SECONDS (24.3-36.9); Protime INR 1.22
[2024-05-23 16:09] LABS: ALT/SGPT 39 U/L (16-61); AST/SGOT 43 U/L (15-37); Albumin 3.1 g/dL (3.4-5.0); Albumin/Globulin Ratio 0.8 (1.1-1.8); Alkaline Phosphatase 71 U/L (45-117); Anion Gap 14.1 mEq/L (5.0-15.0); BUN Blood Urea Nitrogen 18 mg/dL (7-18); Bicarbonate 24 mEq/L (21-32); Bilirubin Direct 0.2 mg/dL (0-0.2); Bilirubin Indirect, Calculated 0.3 mg/dL (0.2-0.8); Bilirubin Total 0.5 mg/dL (0.2-1.0); Globulin 3.9 g/dL (2.3-3.5); Glomerular Filtration Rate 113 ml/min (=/>90); Glucose Level 121 mg/dL (74-106); Potassium 3.1 mEq/L (3.5-5.1); Sodium Level 133 mEq/L (136-145)
[2024-05-23] MEDS ORDERED: LORazepam 2 MG/ML VIAL ONE ×2 (16:18→18:37)
[2024-05-23] MEDS ORDERED: NA CHLORIDE 0.9% 1,000 ML ONE ×2 (16:19→18:37)
[2024-05-23] MEDS ORDERED: HALOPERIDOL LACT 5 MG/ML INJ ONE (16:47)
[2024-05-23 17:51] LABS: Absolute Monocytes 0.7 K/uL (0.1-1.3); Absolute Neutrophil 5.7 K/uL (1.8-8.0); Basophils % 0.3 % (0-1.3); Eosinophils % 0.1 % (0-4.4); Hematocrit 33.1 % (39.6-49.0); Hemoglobin 10.7 g/dL (13.6-17.9); Lymphocytes % 23.2 % (15.3-44.8); MCHC 32.4 g/dL (32.0-36.0); MCV 74.2 fL (80-100); MPV 7.1 fL (7.6-11.3); Monocytes % 8.6 % (3.3-12.3); Neutrophils % 67.8 % (41.7-73.7); Platelets 224 thou/uL (152-406); RBC Red Blood Cell Count 4.46 M/uL (4.33-5.43); Red Cell Distribution Width 19.3 % (12.1-15.2)
--- NOTE | 2024-05-23 18:36 | EDPHYS ---
Physician Documentation [facility] Name: Frank Polo Age: 53 yrs Sex: Male : 1970 Arrival Date: 05/23/2024 Time: 14:09 Bed 15 Private MD: ED Physician Giovanni Escobar HPI: 05/23 15:51 This 53 yrs old Male presents to ER via EMS with complaints of suicidal ideations. sb4 16:58 Patient reports dark tarry stools x 1 week. He also reports history of anxiety and most sb4 recently, auditory hallucinations. States that he is an established [facility] patient, was working on getting inpatient treatment. States that he does drink alcohol daily. Does report some abdominal cramping. Denies any history of GI bleeding. Denies any hematemesis. Endorses suicidal ideation with no plan. Denies homicidal ideation. He states that he is currently withdrawing from alcohol but did drink alcohol this morning.. Historical: - Allergies: 14:35 NKDA; hb - Home Meds: 18:24 atorvastatin 40 mg Oral tablet 1 tab daily [Active]; Eliquis 5 mg oral tablet 1 tab me1 every 12 hours [Active]; gabapentin 400 mg oral capsule 1 cap 3 times per day [Active]; diclofenac sodium 75 mg oral tablet, delayed release (enteric coated) 1 tab 2 times per day for pain [Active]; olanzapine 5 mg oral tablet 1 tab daily for bipolar disorder [Active]; chlorpromazine 50 mg Oral tablet 1 tab daily [Active]; aspirin 81 mg Oral tablet,chewable 1 tab daily [Active]; zolpidem 10 mg Oral tablet 1 tab every day at bedtime [Active]; fluoxetine 10 mg Oral tablet 1 tab daily [Active]; Haldol Oral 10 mg nightly for Sleep Disorder [Active]; mirtazapine 45 mg Oral tablet 1 tab every day at bedtime [Active]; - PMHx: 14:35 Alcoholism; Anxiety; Bipolar disorder; Myocardial infarction; PE; hb - PSHx: 14:35 ankle surgery; hb - Immunization history:: Adult Immunizations unknown. - Infectious Disease History:: Denies. - Social history:: Smoking status: Patient denies any tobacco usage or history of. Patient uses alcohol, on a daily basis. ROS: 16:58 Constitutional: Negative for fever, chills, and weight loss, sb4 17:00 Abdomen/GI: Positive for black/tarry stool, sb4 17:00 Neuro: Positive for tremor, 17:00 Psych: Positive for anxiety, alcohol dependence, auditory hallucinations, suicidal ideation, Exam: 17:00 Head/Face: Normocephalic, atraumatic. Eyes: Extra-ocular motions intact. Periorbital sb4 areas with no swelling, redness, or edema. ENT: Mucous membranes moist. Cardiovascular: Regular rate and rhythm with a normal S1 and S2. Respiratory: No increased work of breathing, no retractions or nasal flaring. Abdomen/GI: Soft, non-tender, no distension. Skin: Warm, dry with normal turgor. Normal color with no rashes, no lesions, and no evidence of cellulitis. 17:00 Constitutional: The patient appears in no acute distress, alert, awake, anxious, 17:00 Psych: Behavior/mood is anxious, Affect is calm, 17:00 Special observations: complaints out of proportion to exam, 18:34 Abdomen/GI: Rectal exam: is unremarkable, Stool: brown, sb4 18:52 Psych: Delusions/hallucinations are present and described as hears people laughing in sb4 his ears. Vital Signs: 14:34 BP 128 / 84; Pulse 128; Resp 18; Temp 97.7; Pulse Ox 100% on R/A; Weight 108.86 kg; hb Height 5 ft. 10 in. ; Pain 0/10; 15:00 BP 124 / 83; Pulse 110; Resp 18; Temp 98.4; Pulse Ox 100% ; me1 20:28 BP 135 / 85 LA; Pulse 122; Temp 96.1; Pulse Ox 97% on R/A; sa1 21:28 Pulse 88; me1 21:35 BP 125 / 80 RA Sitting (auto/reg); Pulse 128; Temp 98.9(TE); Pulse Ox 99% ; sa1 14:34 Body Mass Index 34.44 (108.86 kg, 177.8 cm) hb 14:34 Pain Scale: Adult hb 21:28 manually HR count of 88 and reported to Laurie with [facility]. me1 MDM: 14:30 Medical Screening Exam initiated sb4 18:35 Data reviewed: vital signs, nurses notes, lab test result(s), radiologic studies. sb4 Counseling: I had a detailed discussion with the patient and/or guardian regarding the historical points, exam findings, and any diagnostic results supporting the discharge/admit diagnosis, lab results, radiology results, the need to transfer to another facility, [facility] does not immediately have the required specialist. 05/23 14:30 Order name: Acetaminophen; Complete Time: 16:10 sb4 05/23 14:30 Order name: Basic Metabolic Panel; Complete Time: 16:10 sb4 05/23 14:30 Order name: CBC with Diff; Complete Time: 16:09 sb4 05/23 14:30 Order name: ETOH Level; Complete Time: 16:17 sb4 05/23 14:30 Order name: Hepatic Function; Complete Time: 16:10 sb4 05/23 14:30 Order name: PT-INR; Complete Time: 16:01 sb4 05/23 14:30 Order name: Ptt, Activated; Complete Time: 16:01 sb4 05/23 14:30 Order name: Salicylate; Complete Time: 16:30 sb4 05/23 14:30 Order name: Urine Drug Screen; Complete Time: 19:21 sb4 05/23 17:30 Order name: CBC with Diff; Complete Time: 17:56 sb4 05/23 17:30 Order name: ETOH Level; Complete Time: 18:09 sb4 05/23 20:03 Order name: ETOH Level; Complete Time: 13:02 sb4 05/23 14:30 Order name: EKG - Nurse/Tech; Complete Time: 15:47 sb4 05/23 14:30 Order name: IV Saline Lock; Complete Time: 15:47 sb4 05/23 14:30 Order name: Labs collected and sent; Complete Time: 15:47 sb4 05/23 14:30 Order name: Suicide Screening ([place]); Complete Time: 15:47 sb4 EC:34 Rate is 110 beats/min. Rhythm is regular, Sinus tachycardia. NE interval is normal at sb4 138 msec. QRS interval is normal at 90 msec. QT interval is normal at 366 msec. No Q waves. T waves are Normal. No ST changes noted. Clinical impression: No evidence of ischemia. Interpreted by me. Reviewed by me. Administered Medications: 16:25 Drug: NS 0.9% IV 1000 ml IV at 1 bolus Per protocol; to be given as a bolus over 60 me1 minutes Route: IV; Rate: 1 bolus; Site: right hand; 17:26 Follow up: Response: No adverse reaction; IV Status: Completed infusion; IV Intake: me1 1000ml 16:25 Drug: Ativan IVP 1 mg IVP once Route: IVP; Site: right hand; me1 17:48 Follow up: Response: No adverse reaction; Anxiety decreased me1 16:50 Drug: Haloperidol IVP 5 mg IVP once Route: IVP; Site: right hand; me1 17:48 Follow up: Response: No adverse reaction me1 18:44 Drug: NS 0.9% IV 1000 ml IV at 1000 ml once; to be given as a bolus over 60 minutes me1 Route: IV; Rate: 1000 ml; Site: right hand; 19:51 Follow up: Response: No adverse reaction; IV Status: Completed infusion; IV Intake: me1 1000ml 18:44 Drug: Ativan IVP 2 mg IVP once Route: IVP; Site: right hand; me1 19:51 Follow up: Response: No adverse reaction; Anxiety decreased me1 20:58 Drug: Famotidine IVP 10 mg IVP once; dilute with 10 mL 0.9% NaCl; give over 2 minutes me1 Route: IVP; Site: right hand; 20:59 Follow up: Response: No adverse reaction me1 20:58 Drug: Ondansetron IVP 4 mg IVP once; over 2 minutes Route: IVP; Site: right hand; me1 20:59 Follow up: Response: No adverse reaction; Nausea is decreased me1 Disposition Summary: 05/23/24 18:35 Transfer Ordered Notes: Transfer Location: Psych Facility sb4 Reason: Higher level of care sb4 Condition: Fair sb4 Problem: new sb4 Symptoms: are unchanged sb4 Accepting Physician: psych(05/23/24 21:56) me1 Diagnosis - Suicidal ideations sb4 - Auditory hallucinations sb4 - Alcohol abuse sb4 Forms: - Medication Reconciliation Form sb4 - SBAR form sb4 Addendum: 05/28/2024 02:36 I was immediately available for consultation during this patient's visit. I did not e c2 personally see the patient or discuss the patient with the BRO. . Signatures: Dispatcher MedTunii EDAnne-Marie Funes RN RN hb Kinsey Jo RN RN lg3 Jessica Jessica, PA-C PA-C sb4 Ruth Humphrey RN RN me1 Giovanni Escobar MD MD ec2 Corrections: (The following items were deleted from the chart) 05/23 14:31 14:31 ACETAMINOPHEN+C.LAB.BRZ ordered. EDMS EDMS 14:31 14:31 BASIC METABOLIC PANEL+C.LAB.BRZ ordered. EDMS EDMS 14:31 14:31 CBC+H.LAB.BRZ ordered. EDMS EDMS 14:31 14:31 ETHANOL+C.LAB.BRZ ordered. EDMS EDMS 14:31 14:31 HEPATIC FUNCTION+C.LAB.BRZ ordered. EDMS EDMS 14:31 14:31 PROTIME (+INR)+COAG.LAB.BRZ ordered. EDMS EDMS 14:31 14:31 PTT, ACTIVATED+COAG.LAB.BRZ ordered. EDMS EDMS 14:31 14:31 SALICYLATE+C.LAB.BRZ ordered. EDMS EDMS 14:31 14:31 URINE DRUG SCREEN+UC.LAB.BRZ ordered. EDMS EDMS 17:01 16:58 Patient reports dark tarry stools x 1 week. He also reports history of anxiety sb4 and most recently, auditory hallucinations. States that he is an established [facility] patient, was working on getting inpatient treatment. States that he does drink alcohol daily. Does report some abdominal cramping. Denies any history of GI bleeding. Denies any hematemesis. Endorses suicidal ideation with no plan. Denies homicidal ideation. sb4 17:30 17:30 CBC+H.LAB.BRZ ordered. EDMS EDMS 17:30 17:30 ETHANOL+C.LAB.BRZ ordered. EDMS EDMS 18:28 18:24 Home Meds: Remeron 15 mg Oral tab as needed; me1 me1 21:56 18:35 psych sb4 me1
--- NOTE | 2024-05-23 18:36 | ER ---
Nurse's Notes [facility] Name: Frank Polo Age: 53 yrs Sex: Male : 1970 Arrival Date: 05/23/2024 Time: 14:09 Bed 15 Private MD: Diagnosis: Suicidal ideations;Auditory hallucinations;Alcohol abuse Presentation: 05/23 14:18 Chief complaint: EMS states: Hallucinations x 2 days, black stool x 1 week, daily hb drinker, consumed approx 80 ounces Old Swiss this morning. BP 186/106, HR 108, SpO2 99% on RA. Coronavirus screen: At this time, the client does not indicate any symptoms associated with coronavirus-19. Ebola Screen: No symptoms or risks identified at this time. Onset of symptoms was May 23, 2024. 14:18 Method Of Arrival: EMS: [facility] 14:18 Acuity: PRANAV 2 hb 14:34 Initial Sepsis Screen: Does the patient meet any 2 criteria? No. Patient's initial hb sepsis screen is negative. Does the patient have a suspected source of infection? No. Patient's initial sepsis screen is negative. Risk Assessment: Do you want to hurt yourself or someone else? Patient reports no desire to harm self or others. Historical: - Allergies: 14:35 NKDA; hb - Home Meds: 18:24 atorvastatin 40 mg Oral tablet 1 tab daily [Active]; Eliquis 5 mg oral tablet 1 tab me1 every 12 hours [Active]; gabapentin 400 mg oral capsule 1 cap 3 times per day [Active]; diclofenac sodium 75 mg oral tablet, delayed release (enteric coated) 1 tab 2 times per day for pain [Active]; olanzapine 5 mg oral tablet 1 tab daily for bipolar disorder [Active]; chlorpromazine 50 mg Oral tablet 1 tab daily [Active]; aspirin 81 mg Oral tablet,chewable 1 tab daily [Active]; zolpidem 10 mg Oral tablet 1 tab every day at bedtime [Active]; fluoxetine 10 mg Oral tablet 1 tab daily [Active]; Haldol Oral 10 mg nightly for Sleep Disorder [Active]; mirtazapine 45 mg Oral tablet 1 tab every day at bedtime [Active]; - PMHx: 14:35 Alcoholism; Anxiety; Bipolar disorder; Myocardial infarction; PE; hb - PSHx: 14:35 ankle surgery; hb - Immunization history:: Adult Immunizations unknown. - Infectious Disease History:: Denies. - Social history:: Smoking status: Patient denies any tobacco usage or history of. Patient uses alcohol, on a daily basis. Screenin:07 Clinical [place] Withdrawal Assessment for Alcohol, revised (CIWA-Ar): Anxiety: 4 - me1 Moderately anxious, guarded Agitation: 1 - Somewhat more than normal activity Tremor: 1 - Not visible, but can be felt at fingertips Auditory Disturbances: 2 - Mild harshness or ability to frighten Visual Disturbances: 0 - Not present Tactile Disturbances: 0 - None Orientation and Clouding of Sensorium: 4 - Disoriented for place and/or patient Total Score: 10 to 15: Mild Withdrawal. [facility] ED Fall Risk Assessment (Adult) History of falling in the last 3 months, including since admission No falls in past 3 months (0 pts) Confusion or Disorientation No (0 pts) Intoxicated or Sedated Yes (3 pts) Impaired Gait No (0 pts) Mobility Assist Device Used No (0 pt) Altered Elimination No (0 pt) Score/Fall Risk Level 0 - 2 = Low Risk Maintained a safe environment, Provided non-skid footwear, Hourly rounding (assess needs \\T\\ fall precautionary measures) done. Abuse screen: Denies threats or abuse. Nutritional screening: No deficits noted. Tuberculosis screening: No symptoms or risk factors identified. Assessment: 14:20 General: Appears uncomfortable, obese, well groomed, well developed, Behavior is me1 cooperative, appropriate for age, anxious, Reports Hallucinations x 2 days, black stool x 1 week, daily drinker, consumed approx 80 ounces Old Swiss this morning. Pain: Denies pain. Neuro: Level of Consciousness is awake, alert, obeys commands, Oriented to person, place, time, situation, Appropriate for age. Cardiovascular: Patient's skin is warm and dry. Respiratory: Airway is patent Respiratory effort is even, unlabored, Respiratory pattern is regular, symmetrical. GI: Reports bloody stool, black stool x 1 week. : No signs and/or symptoms were reported regarding the genitourinary system. EENT: No signs and/or symptoms were reported regarding the EENT system. Derm: Skin is intact, is healthy with good turgor, Skin is pink, warm \\T\\ dry. Musculoskeletal: No signs and/or symptoms reported regarding the musculoskeletal system. 19:19 Reassessment: Nurse to nurse with Laurie from [facility] in [facility], accepted. me1 Transferred call to community health consultant for acceptance info. Psych: 14:20 [place] Suicide Severity Screening: In the past month, have you wished you were me1 or wished you could go to sleep and not wake up? Patient responds "yes." Based off the client's responses additional C-SSRS screening is required. Patient has wished he was and has thought suicidal thoughts but denies having a plan. has been suicidal in the past but has never attempted suicide. "In the past month, have you actually had any thoughts of killing yourself?" Patient responds "yes." Based off the client's response additional [place] suicide severity screening questions to be further documented on paper forms. "In your lifetime, have you ever done anything, started to do anything, or prepared to do anything to end your life?" Patient responds "no.". Subjective: Patient's mood is sad, Delusions are denied, Hallucinations are auditory, states he hears voices giggling all the time. Having thoughts of suicide. Denies suicidal plan. Objective: Patient is cooperative, Speech is normal, Affect is flat. Interventions: Removed personal items and placed in bag. Patient placed in hospital gown. Searched person for dangerous items. Urine collected and sent for urine drug test. Belonging list filled out. Patient reassessed during use of restraints. Patient is physically safe. Safety Checks: Personal items have been removed. Pt has been placed in a hallway bed/chair. Door is open. No visitors are present at this time. Patient uses 80 oz of malt liquor everyday in the morning to help with withdrawals (tremors, auditory hallucinations and anxiety). Commitment: Patient will be a voluntary commitment. Vital Signs: 14:34 BP 128 / 84; Pulse 128; Resp 18; Temp 97.7; Pulse Ox 100% on R/A; Weight 108.86 kg; hb Height 5 ft. 10 in. ; Pain 0/10; 15:00 BP 124 / 83; Pulse 110; Resp 18; Temp 98.4; Pulse Ox 100% ; me1 20:28 BP 135 / 85 LA; Pulse 122; Temp 96.1; Pulse Ox 97% on R/A; sa1 21:28 Pulse 88; me1 21:35 BP 125 / 80 RA Sitting (auto/reg); Pulse 128; Temp 98.9(TE); Pulse Ox 99% ; sa1 14:34 Body Mass Index 34.44 (108.86 kg, 177.8 cm) hb 14:34 Pain Scale: Adult hb 21:28 manually HR count of 88 and reported to Laurie with [facility]. me1 ED Course: 14:13 Patient arrived in ED. al6 14:14 Jessica Jessica PA-C is PHCP. sb4 14:14 Giovanni Escobar MD is Attending Physician. sb4 14:20 Triage completed. hb 14:20 Arm band placed on Patient placed in an exam room. me1 14:45 Missed attempt(s): 20 gauge in left antecubital area. Bleeding controlled, band aid bc6 applied, catheter tip intact. 14:55 Missed attempt(s): 20 gauge in right antecubital area. Bleeding controlled, band aid bc6 applied, catheter tip intact. 14:58 Missed attempt(s): 20 gauge in right antecubital area. Bleeding controlled, band aid bc6 applied, catheter tip intact. 15:02 Ruth Humphrey, RN is Primary Nurse. me1 15:47 Initial lab(s) drawn, by wa, sent to lab. Urine collected: clean catch specimen, clear. me1 Inserted saline lock: 22 gauge in right hand, using aseptic technique. 15:47 Acetaminophen Sent. me1 15:47 Basic Metabolic Panel Sent. me1 15:47 CBC with Diff Sent. me1 15:47 ETOH Level Sent. me1 15:47 Hepatic Function Sent. me1 15:47 PT-INR Sent. me1 15:47 Ptt, Activated Sent. me1 15:48 Salicylate Sent. me1 15:48 Urine Drug Screen Sent. me1 17:46 CBC with Diff Sent. me1 17:46 ETOH Level Sent. me1 18:07 No provider procedures requiring assistance completed. me1 18:07 Patient has correct armband on for positive identification. Bed in low position. Call [facility] [place] in reach. Side rails up X 1. Provided Education on: POC. Verbalized understanding.. 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 me1 19:06 Faxed pt clinicals to [facility] for placement. rv1 20:10 Warm blanket given. sa1 20:23 Repeat lab(s) drawn. by me, sent to lab. sa1 21:37 IV discontinued, intact, bleeding controlled, No redness/swelling at site. Pressure sa1 dressing applied. Administered Medications: 16:25 Drug: NS 0.9% IV 1000 ml IV at 1 bolus Per protocol; to be given as a bolus over 60 me1 minutes Route: IV; Rate: 1 bolus; Site: right hand; 17:26 Follow up: Response: No adverse reaction; IV Status: Completed infusion; IV Intake: me1 1000ml 16:25 Drug: Ativan IVP 1 mg IVP once Route: IVP; Site: right hand; me1 17:48 Follow up: Response: No adverse reaction; Anxiety decreased me1 16:50 Drug: Haloperidol IVP 5 mg IVP once Route: IVP; Site: right hand; me1 17:48 Follow up: Response: No adverse reaction me1 18:44 Drug: NS 0.9% IV 1000 ml IV at 1000 ml once; to be given as a bolus over 60 minutes me1 Route: IV; Rate: 1000 ml; Site: right hand; 19:51 Follow up: Response: No adverse reaction; IV Status: Completed infusion; IV Intake: me1 1000ml 18:44 Drug: Ativan IVP 2 mg IVP once Route: IVP; Site: right hand; me1 19:51 Follow up: Response: No adverse reaction; Anxiety decreased me1 20:58 Drug: Famotidine IVP 10 mg IVP once; dilute with 10 mL 0.9% NaCl; give over 2 minutes me1 Route: IVP; Site: right hand; 20:59 Follow up: Response: No adverse reaction me1 20:58 Drug: Ondansetron IVP 4 mg IVP once; over 2 minutes Route: IVP; Site: right hand; me1 20:59 Follow up: Response: No adverse reaction; Nausea is decreased me1 Medication: 18:34 VIS not applicable for this client. me1 Intake: 17:26 IV: 1000ml; Total: 1000ml. me1 19:51 IV: 1000ml; Total: 2000ml. me1 Outcome: 18:35 ER care complete, transfer ordered by . sb4 21:37 Transferred by ground EMS Note: [facility] in [facility]. me1 21:37 Condition: stable 21:37 Instructed on the need for transfer, 21:56 Patient left the ED. me1 Signatures: Anne-Marie Jameson, RN RN Jessica Jessica PA-C PA-C sb4 Lexi Cal[place]cca rv1 Lindsay Awan bc6 Ruth Humphrey RN RN me1 Sultan Evon sa1 Charlene Patel al6 Corrections: (The following items were deleted from the chart) 14:35 14:34 BP 128 / 84; Pulse 128bpm; Resp 18bpm; Pulse Ox 100% RA; Temp 97.7F; hb hb 15:03 14:18 Chief complaint: EMS states: Hallucinations x 2 days, black stool x 1 week, daily me1 drinker, consumed approx 80 ounces Old Swiss this morning. BP 186/106, HR 108, SpO2 99% on RA. hb 15:05 14:18 Chief complaint: EMS states: Hallucinations x 2 days, black stool x 1 week, daily me1 drinker, consumed approx 80 ounces Old Swiss this morning. BP 186/106, HR 108, SpO2 99% on RA. me1 18:06 14:18 Chief complaint: EMS states: Hallucinations x 2 days, black stool x 1 week, daily me1 drinker, consumed approx 80 ounces Old Swiss this morning. BP 186/106, HR 108, SpO2 99% on RA. me1 18:28 18:24 Home Meds: Remeron 15 mg Oral tab as needed; me1 me1
[2024-05-23 19:17] LABS: Barbiturates NEGATIVE (NEGATIVE); Benzodiazepines NEGATIVE (NEGATIVE); Cocaine NEGATIVE (NEGATIVE); METHAMPHETAM NEGATIVE (NEGATIVE); Methadone NEGATIVE (NEGATIVE); Opiates NEGATIVE (NEGATIVE); Phencyclidine NEGATIVE (NEGATIVE); THC Cannibis NEGATIVE (NEGATIVE)
[2024-05-23] MEDS ORDERED: ONDANSETRON 4 MG/2 ML VIAL ONE (20:53)
[2024-05-23] MEDS ORDERED: FAMOTIDINE 20 MG/2 ML VIAL IV ONE (20:53)
[2024-05-23 22:06] VITALS: BP 125/80; TEMP 98.9; O2SAT 99
--- NOTE | 2024-05-30 11:08 | EKG ---
Test Date: 2024-05-23 Test Time: 15:21:25 Electrical Tester: JOSE MEASUREMENT RESULTS: Intervals: Rate: 110 UT: 138 QRSD: 90 QT: 366 QTc: 495 [place]: P: -23 UT: 138 QRS: 14 T: 11 INTERPRETIVE STATEMENTS: Sinus tachycardia Septal infarct, age undetermined Abnormal ECG Compared to ECG 12/23/2023 16:22:15 Myocardial infarct finding now present ST (T wave) deviation no longer present Possible ischemia no longer present Electronically Signed On 05-30-24 10:59:32 OIL PAINT [employer]ADER by Ulises Stovall
== END 2024-05-23 21:56 ==
LOC: ER 14:09
DX: R45.851 Suicidal ideations (principal); R44.0 Auditory hallucinations; F10.10 Alcohol abuse, uncomplicated; Y90.7 Blood alcohol level of 200-239 mg/100 ml
CPT/HCPCS: 96361; 93005; 85025 ×2; 80048; 36415; 85610; 80076; 85730; 80307; 96375; 96374; 99285; 80143; 80179; 82077 ×3; J1630; J2405; J7030 ×2

== ENCOUNTER 2024-09-02 10:16 | Emergency (ER) | payer OTHER ==
[2024-09-02] MEDS ORDERED: NA CHLORIDE 0.9% 1,000 ML ONE ×2 (10:48→12:18)
[2024-09-02 11:01] LABS: Absolute Basophils 0.1 K/uL (0-0.5); Absolute Monocytes 1.2 K/uL (0.1-1.3); Absolute Neutrophil 14.9 K/uL (1.8-8.0); Basophils % 0.3 % (0-1.3); Hematocrit 42.8 % (39.6-49.0); Hemoglobin 13.9 g/dL (13.6-17.9); Lymphocytes % 5.9 % (15.3-44.8); MCH 22.3 pg (27.0-35.0); MCHC 32.5 g/dL (32.0-36.0); MCV 68.7 fL (80-100); MPV 7.5 fL (7.6-11.3); Monocytes % 6.8 % (3.3-12.3); Platelets 288 thou/uL (152-406); RBC Red Blood Cell Count 6.23 M/uL (4.33-5.43); Red Cell Distribution Width 17.3 % (12.1-15.2)
[2024-09-02 11:04] LABS: PT Prothrombin Time 12.3 SECONDS (10-13.0); Protime INR 1.08
[2024-09-02] MEDS ORDERED: LORazepam 2 MG/ML VIAL ONE (11:09)
[2024-09-02] MEDS ORDERED: ONDANSETRON 4 MG/2 ML VIAL ONE (11:09)
[2024-09-02] MEDS ORDERED: FAMOTIDINE 20 MG/2 ML VIAL IV ONE (11:09)
--- NOTE | 2024-09-02 11:27 | RAD REPORT ---
EXAM: Chest Single View HISTORY: 54 years Male CHEST PAIN COMPARISON: 12/23/2023 FINDINGS: LUNGS/PLEURA: The lungs are clear. No pleural effusions or pneumothorax. No pulmonary edema. CARDIAC/MEDIASTINUM: The cardiac silhouette is within normal limits. UPPER ABDOMEN: No significant abnormality. BONES: No acute abnormality. LINES/TUBES/OTHER: N/A IMPRESSION: No evidence of acute cardiopulmonary disease.
[2024-09-02 11:34] LABS: Albumin 3.3 g/dL (3.4-5.0); Albumin/Globulin Ratio 0.8 (1.1-1.8); Anion Gap 21.7 mEq/L (5.0-15.0); Bilirubin Direct 0.3 mg/dL (0-0.2); Bilirubin Indirect, Calculated 0.8 mg/dL (0.2-0.8); Bilirubin Total 1.1 mg/dL (0.2-1.0); Globulin 4.2 g/dL (2.3-3.5); Potassium 2.7 mEq/L (3.5-5.1); Protein, Total 7.5 g/dL (6.4-8.2); Troponin High Sensitivity 5.3 pg/mL (<58.9)
[2024-09-02] MEDS ORDERED: LORAZEPAM 1 MG TABLET ONE (11:50)
--- NOTE | 2024-09-02 11:57 | EDPHYS ---
Physician Documentation [facility] Carlos Eduardo Name: Frank Polo Age: 54 yrs Sex: Male : 1970 Arrival Date: 09/02/2024 Time: 10:16 Bed 6 Private MD: ED Physician Sherine Tobias Historical: - Allergies: 09/02 10:17 NKDA; aa5 - PMHx: 10:17 Alcoholism; Anxiety; Bipolar disorder; Myocardial infarction; PE; aa5 - PSHx: 10:17 ankle surgery; aa5 - Immunization history:: Adult Immunizations up to date. - Infectious Disease History:: Denies. - Social history:: Smoking status: unknown. Vital Signs: 10:17 BP 112 / 76; Pulse 136; Resp 20 S; Temp 97.8(TE); Pulse Ox 96% on R/A; aa5 10:45 BP 112 / 76; Pulse 136; Resp 20 S; Pulse Ox 100% on R/A; aa5 11:30 BP 122 / 85; Pulse 118; Resp 16 S; Pulse Ox 100% on R/A; aa5 13:00 BP 136 / 91; Pulse 127; Resp 20 S; Pulse Ox 100% on R/A; aa5 14:00 BP 113 / 84; Pulse 120; Resp 18 S; Pulse Ox 98% on R/A; aa5 14:13 Weight 113.4 kg (R); cm10 16:00 BP 120 / 84; Pulse 110; Resp 16 S; Pulse Ox 98% on R/A; aa5 19:00 BP 121 / 83; Pulse 104; Resp 18 S; Pulse Ox 98% on R/A; aa5 MDM: 10:22 Medical Screening Exam initiated gb1 15:54 ED course: 54-year-old male with acute alcohol withdrawal. No DTs he has history of gb1 bipolar, anxiety, OR and PE. Patient does have a concern for possible alcoholic gastritis which is recommended to do an upper endoscopy by the reading radiologist of the CT of the abdomen and pelvis. Patient has acute hypokalemia and is in active alcohol withdrawal with an elevated and rising lactic acid. Patient's accepted by Dr. Ordaz at [facility] and will likely have an EGD while inpatient. Patient did also receive a banana bag as well as 30 cc/kg fluid resuscitation. At this time he has an elevated white count which I likely do believe is a stress response from the alcohol acute withdraw.. 09/02 10:24 Order name: Basic Metabolic Panel; Complete Time: 11:37 gb09/02 10:24 Order name: CBC with Diff; Complete Time: 12:20 gb1 09/02 10:24 Order name: LFT's; Complete Time: 11:37 gb1 09/02 10:24 Order name: NT PRO-BNP; Complete Time: 11:37 gb09/02 10:24 Order name: PT-INR; Complete Time: 11:06 gb09/02 10:24 Order name: Troponin HS; Complete Time: 11:37 gb09/02 10:34 Order name: ETOH Level; Complete Time: 11:43 aa5 09/02 10:42 Order name: UDS; Complete Time: 17:12 gb09/02 17:13 Interpretation: Abnormal. 09/02 11:08 Order name: CBC Smear Scan; Complete Time: 12:20 EDMS 09/02 11:45 Order name: Lactate w/ 2H reflex if indic.; Complete Time: 13:59 gb1 09/02 13:36 Order name: Lipase; Complete Time: 13:59 EDMS 09/02 13:45 Order name: Ghost Lactate-NO COLLECT Timer; Complete Time: 15:44 EDMS 09/02 10:24 Order name: XRAY Chest (1 view); Complete Time: 11:28 gb1 09/02 11:44 Order name: CT Abd/Pelvis - IV Contrast Only; Complete Time: 12:52 gb09/02 10:24 Order name: Cardiac monitoring; Complete Time: 10:34 gb09/02 10:24 Order name: EKG - Nurse/Tech; Complete Time: 11:02 gb09/02 10:24 Order name: IV Saline Lock; Complete Time: 10:43 gb09/02 10:24 Order name: Labs collected and sent; Complete Time: 10:43 gb09/02 10:24 Order name: O2 Per Protocol; Complete Time: 10:34 gb1 09/02 10:24 Order name: O2 Sat Monitoring; Complete Time: 10:34 gb1 Administered Medications: 10:55 Drug: NS 0.9% IV 1000 ml IV at 1000 ml once; to be given as a bolus over 60 minutes aa5 Route: IV; Rate: 1000 ml; Site: right forearm; 11:55 Follow up: IV Status: Completed infusion; IV Intake: 1000ml aa5 11:13 Drug: Ativan IVP 1 mg IVP once Route: IVP; Site: right forearm; aa5 11:20 Follow up: Response: No adverse reaction aa5 11:13 Drug: Ondansetron IVP 4 mg IVP once; over 2 minutes Route: IVP; Site: right forearm; aa5 11:20 Follow up: Response: No adverse reaction aa5 11:13 Drug: Famotidine IVP 20 mg IVP once; dilute with 10 mL 0.9% NaCl; give over 2 minutes aa5 Route: IVP; Site: right forearm; 11:20 Follow up: Response: No adverse reaction aa5 11:53 Drug: LORazepam PO 1 mg PO once Route: PO; aa5 12:30 Follow up: Response: No adverse reaction aa5 13:04 Drug: Potassium Chloride IV 20 mEq IV at bolus once; administer over 1-2 hours Route: aa5 IV; Rate: bolus; Site: right forearm; 15:30 Follow up: IV Status: Completed infusion; IV Intake: 100ml aa5 13:04 Drug: Banana Bag - (Multivitamin IV 1 amp, NS 0.9% IV 1000 ml, Thiamine IV 100 mg, aa5 foLIC Acid IVPB 1 mg) IV at calculated rate once Route: IV; Rate: calculated rate; Site: right forearm; 15:30 Follow up: IV Status: Completed infusion; IV Intake: 1000ml aa5 14:44 Drug: NS 0.9% IV 1000 ml IV at 1000 ml once; to be given as a bolus over 60 minutes aa5 Route: IV; Rate: 1000 ml; Site: right forearm; 15:44 Follow up: IV Status: Completed infusion; IV Intake: 1000ml aa5 14:44 Drug: NS 0.9% IV 1000 ml IV at 1000 ml once; to be given as a bolus over 60 minutes aa5 Route: IV; Rate: 1000 ml; Site: right forearm; 15:44 Follow up: IV Status: Completed infusion; IV Intake: 1000ml aa5 15:44 Drug: Librium - chlordiazePOXIDE PO 50 mg PO once Route: PO; aa5 16:30 Follow up: Response: No adverse reaction; Marked relief of symptoms aa5 Disposition: 15:54 Critical Care:. gb1 Disposition Summary: 09/02/24 15:54 Transfer Ordered Notes: Transfer Location: Other [facility] gb1 Reason: Higher level of care gb1 Condition: Fair(09/02/24 15:54) gb1 Problem: an acute exacerbation(09/02/24 15:54) gb1 Symptoms: have worsened(09/02/24 15:54) gb1 Accepting Physician: Dr. Juarez(09/02/24 19:59) kd3 Diagnosis - Hypokalemia(09/02/24 15:54) gb1 - Alcoholic gastritis with bleeding gb1 - Alcohol dependence with withdrawal, unspecified gb1 Forms: - Medication Reconciliation Form gb1 - SBAR form gb1 Critical care time excluding procedures: 15:54 Critical care time: Bedside Care: 100 minutes, Consultation: 45 minutes, Family gb1 Intervention: 20 minutes. Total time: 165 minutes Signatures: Dispatcher [employer] EDMS Edelmira Dumont RN RN aa5 Benedicto Greenberg, TOURIST GUIDE-C TOURIST GUIDE-Cla1 Jennifer Chavez RN RN kd3 Sherine Tobias MD MD gb1 Corrections: (The following items were deleted from the chart) 10:25 10:25 Chest Single View+RAD.RAD.BRZ ordered. EDMS EDMS 10:34 10:34 ETHANOL+C.LAB.BRZ ordered. EDMS EDMS 11:38 11:38 Abnormal. gb1 gb1 15:50 11:56 Inpatient Admission gb1 gb1 15:50 11:56 Cleopatra Trejo gb1 gb1 15:50 11:56 Telemetry/MedSurg (Inpatient) gb1 gb1 15:50 11:56 Fair gb1 gb1 15:50 11:56 an acute exacerbation gb1 gb1 15:50 11:56 have worsened gb1 gb1 15:50 11:56 Standard gb1 gb1 15:50 11:56 gb1 gb1 15:50 11:56 Alcohol dependence with withdrawal gb1 gb1 15:50 11:56 Hypokalemia gb1 gb1 19:59 15:54 Dr. Juarez gb1 kd3
--- NOTE | 2024-09-02 11:57 | ER ---
Nurse's Notes [facility] Carlos Eduardo Name: Frank Polo Age: 54 yrs Sex: Male : 1970 Arrival Date: 09/02/2024 Time: 10:16 Bed 6 Private MD: Diagnosis: Hypokalemia;Alcoholic gastritis with bleeding;Alcohol dependence with withdrawal, unspecified Presentation: 09/02 10:17 Onset of symptoms was September 02, 2024. aa5 10:17 Acuity: PRANAV 2 aa5 10:17 Chief complaint: EMS states: chest pain, abd pain, and vomiting blood today. Reports aa5 drinks ETOH daily and last drink was yesterday around 1100. Coronavirus screen: vomiting. Ebola Screen: Patient denies travel to an Ebola-affected area in the 21 days before illness onset. Initial Sepsis Screen: Does the patient meet any 2 criteria? HR > 90 bpm. Does the patient have a suspected source of infection? No. Patient's initial sepsis screen is negative. Risk Assessment: Do you want to hurt yourself or someone else? Patient reports no desire to harm self or others. 10:17 Method Of Arrival: EMS: [facility] aa5 10:17 Care prior to arrival: Glucose check: 155. aa5 Historical: - Allergies: 10:17 NKDA; aa5 - PMHx: 10:17 Alcoholism; Anxiety; Bipolar disorder; Myocardial infarction; PE; aa5 - PSHx: 10:17 ankle surgery; aa5 - Immunization history:: Adult Immunizations up to date. - Infectious Disease History:: Denies. - Social history:: Smoking status: unknown. Screenin:20 [facility] ED Fall Risk Assessment (Adult) History of falling in the last 3 months, aa5 including since admission No falls in past 3 months (0 pts) Confusion or Disorientation No (0 pts) Intoxicated or Sedated Yes (3 pts) Impaired Gait No (0 pts) Mobility Assist Device Used No (0 pt) Altered Elimination No (0 pt) Score/Fall Risk Level 3 or more points = High Risk Oriented to surroundings, Maintained a safe environment, Educated pt \\T\\ family on fall prevention, incl call for assistance when getting out of bed, Assessed \\T\\ reinforced patient's understanding of fall precautions. Abuse screen: Denies threats or abuse. Nutritional screening: No deficits noted. Tuberculosis screening: No symptoms or risk factors identified. Assessment: 10:17 General: Appears uncomfortable, Behavior is cooperative, anxious, Reports "feeling aa5 shaky", reports drinks ETOH daily, states "I drink two 32oz liquor bottles a day", last drink was 09/01/24 around 1100. Pain: Complains of pain in chest and abdomen Pain does not radiate. Pain currently is 10 out of 10 on a pain scale. Quality of pain is described as sharp, Pain began today Is intermittent. Neuro: Level of Consciousness is awake, alert, obeys commands, Oriented to person, place, time, situation. Cardiovascular: Heart tones S1 S2 present Rhythm is sinus tachycardia. Respiratory: Airway is patent Respiratory effort is even, unlabored, Respiratory pattern is regular, symmetrical. GI: Abdomen is round non-distended, Bowel sounds present X 4 quads. Abd is soft and non tender X 4 quads. Reports nausea, reports vomited "bile and blood today", pt states "I haven't eaten in about a week". : No signs and/or symptoms were reported regarding the genitourinary system. EENT: No signs and/or symptoms were reported regarding the EENT system. Derm: Skin is pink, warm \\T\\ dry. Musculoskeletal: Range of motion: intact in all extremities. 11:48 Reassessment: Patient is alert, oriented x 3, equal unlabored respirations, skin aa5 warm/dry/pink. Pt requesting medication "for the shakes", MD was notified. . 13:00 Reassessment: Patient is alert, oriented x 3, equal unlabored respirations, skin aa5 warm/dry/pink. Pt states no improvement of symptoms, pt requesting medication, MD was notified. . 14:00 Reassessment: Patient is alert, oriented x 3, equal unlabored respirations, skin aa5 warm/dry/pink. 15:30 Reassessment: Patient is alert, oriented x 3, equal unlabored respirations, skin aa5 warm/dry/pink. Reassessment: Pt states "I still feel very shaky and anxious". MD was notified. . 16:30 Reassessment: Patient is alert, oriented x 3, equal unlabored respirations, skin aa5 warm/dry/pink. Patient states feeling better. Patient states symptoms have improved. General: Appears comfortable. 17:00 Reassessment: Patient is alert, oriented x 3, equal unlabored respirations, skin aa5 warm/dry/pink. General: Appears comfortable. 19:00 Reassessment: Patient is alert, oriented x 3, equal unlabored respirations, skin aa5 warm/dry/pink. Awaiting EMS for transfer, pt aware of wait time. . Vital Signs: 10:17 BP 112 / 76; Pulse 136; Resp 20 S; Temp 97.8(TE); Pulse Ox 96% on R/A; aa5 10:45 BP 112 / 76; Pulse 136; Resp 20 S; Pulse Ox 100% on R/A; aa5 11:30 BP 122 / 85; Pulse 118; Resp 16 S; Pulse Ox 100% on R/A; aa5 13:00 BP 136 / 91; Pulse 127; Resp 20 S; Pulse Ox 100% on R/A; aa5 14:00 BP 113 / 84; Pulse 120; Resp 18 S; Pulse Ox 98% on R/A; aa5 14:13 Weight 113.4 kg (R); cm10 16:00 BP 120 / 84; Pulse 110; Resp 16 S; Pulse Ox 98% on R/A; aa5 19:00 BP 121 / 83; Pulse 104; Resp 18 S; Pulse Ox 98% on R/A; aa5 ED Course: 10:17 Patient arrived in ED. aa5 10:17 Arm band placed on Patient placed in an exam room, on a stretcher. aa5 10:17 Patient has correct armband on for positive identification. aa5 10:18 Edelmira Dumont, RN is Primary Nurse. aa5 10:22 Sherine Tobias MD is Attending Physician. gb1 10:35 Initial lab(s) drawn, by ca, sent to lab. Inserted saline lock: 20 gauge in right aa5 forearm, using aseptic technique. Blood collected. Flushed with 10 mL NS. 10:52 Triage completed. aa5 11:00 EKG done, by ED staff, reviewed by Sherine Tobias MD. aa5 11:09 XRAY Chest (1 view) In Process Unspecified. EDMS 11:55 Cleopatra Trejo MD is Hospitalizing Provider. gb1 12:19 CT Abd/Pelvis - IV Contrast Only In Process Unspecified. EDMS 13:42 Notified ED physician of a critical lab result(s). lac 5.8. hb 19:00 Report given to EDISON Rodrgiuez. aa5 19:57 No provider procedures requiring assistance completed. Patient transferred, IV remains kd3 in place. Patient maintains SpO2 saturation greater than 95% on room air. 19:58 Provided Education on: transfer. Client placed on continuous cardiac and pulse oximetry kd3 monitoring. NIBP monitoring applied. monitoring tech on. Administered Medications: 10:55 Drug: NS 0.9% IV 1000 ml IV at 1000 ml once; to be given as a bolus over 60 minutes aa5 Route: IV; Rate: 1000 ml; Site: right forearm; 11:55 Follow up: IV Status: Completed infusion; IV Intake: 1000ml aa5 11:13 Drug: Ativan IVP 1 mg IVP once Route: IVP; Site: right forearm; aa5 11:20 Follow up: Response: No adverse reaction aa5 11:13 Drug: Ondansetron IVP 4 mg IVP once; over 2 minutes Route: IVP; Site: right forearm; aa5 11:20 Follow up: Response: No adverse reaction aa5 11:13 Drug: Famotidine IVP 20 mg IVP once; dilute with 10 mL 0.9% NaCl; give over 2 minutes aa5 Route: IVP; Site: right forearm; 11:20 Follow up: Response: No adverse reaction aa5 11:53 Drug: LORazepam PO 1 mg PO once Route: PO; aa5 12:30 Follow up: Response: No adverse reaction aa5 13:04 Drug: Potassium Chloride IV 20 mEq IV at bolus once; administer over 1-2 hours Route: aa5 IV; Rate: bolus; Site: right forearm; 15:30 Follow up: IV Status: Completed infusion; IV Intake: 100ml aa5 13:04 Drug: Banana Bag - (Multivitamin IV 1 amp, NS 0.9% IV 1000 ml, Thiamine IV 100 mg, aa5 foLIC Acid IVPB 1 mg) IV at calculated rate once Route: IV; Rate: calculated rate; Site: right forearm; 15:30 Follow up: IV Status: Completed infusion; IV Intake: 1000ml aa5 14:44 Drug: NS 0.9% IV 1000 ml IV at 1000 ml once; to be given as a bolus over 60 minutes aa5 Route: IV; Rate: 1000 ml; Site: right forearm; 15:44 Follow up: IV Status: Completed infusion; IV Intake: 1000ml aa5 14:44 Drug: NS 0.9% IV 1000 ml IV at 1000 ml once; to be given as a bolus over 60 minutes aa5 Route: IV; Rate: 1000 ml; Site: right forearm; 15:44 Follow up: IV Status: Completed infusion; IV Intake: 1000ml aa5 15:44 Drug: Librium - chlordiazePOXIDE PO 50 mg PO once Route: PO; aa5 16:30 Follow up: Response: No adverse reaction; Marked relief of symptoms aa5 Medication: 14:37 VIS not applicable for this client. aa5 Intake: 11:55 IV: 1000ml; Total: 1000ml. aa5 15:30 IV: 1000ml; Total: 2000ml. aa5 15:30 IV: 100ml; Total: 2100ml. aa5 15:44 IV: 1000ml; Total: 3100ml. aa5 15:44 IV: 1000ml; Total: 4100ml. aa5 Outcome: 11:56 Decision to Hospitalize by Provider. gb1 15:54 ER care complete, transfer ordered by . gb1 19:58 Transferred by ground EMS kd3 19:58 Condition: stable 19:58 Discharge instructions given to patient, family, Instructed on the need for transfer, 19:59 Patient left the ED. kd3 Signatures: Dispatcher [employer] EDMS Edelmira Dumont RN RN aa5 Anne-Marie Jameson RN RN hb Doucette, Kyli, RN RN kd3 Lcuy Aviles RN RN cm10 Sherine Tobias MD MD gb1 Corrections: (The following items were deleted from the chart) 19:26 15:30 IV Status: Completed infusion aa5 aa5 19:26 19:25 IV Status: Completed infusion; IV Intake: 1000ml aa5 aa5 19:29 15:30 Reassessment: Patient is alert, oriented x 3, equal unlabored respirations, skin aa5 warm/dry/pink. Patient states feeling better. Patient states symptoms have improved. aa5 19: 15:30 General: Appears comfortable, aa5 aa5
[2024-09-02 12:14] LABS: Blood Morphology Comment NOT SEEN (NOT SEEN); Platelet Estimate ADEQ; White Blood Cell Scan OK (OK)
[2024-09-02] MEDS ORDERED: MULTIVITAMINS 10 ML VIAL (INJ) IV ONE (12:17)
[2024-09-02] MEDS ORDERED: THIAMINE 200 MG/2 ML INJ ONE (12:17)
[2024-09-02] MEDS ORDERED: FOLIC ACID 5 MG/ML VIAL ONE (12:17)
[2024-09-02] MEDS ORDERED: KCL 20 MEQ/100 mL IVPB 100 ML IV ONE (12:18)
--- NOTE | 2024-09-02 12:38 | RAD REPORT ---
EXAMINATION: Abdomen Pelvis W Contrast CLINICAL INDICATION: Male, 54 years old.ABDOMINAL DISTENTION TECHNIQUE: CT abdomen and pelvis was performed, after the administration of IV contrast, as [facility]. Axial, sagittal and coronal reconstructions were obtained. One or more of the following dose reduction techniques were used: Automated exposure control, adjustment of the mA and/o r kV according to patient size, and/or iterative reconstruction. Unless otherwise specified, incidental findings do not require dedicated imaging follow-up. [id number]. COMPARISON: No prior exam. FINDINGS: LOWER CHEST: No acute process identified.No significant pericardial effusion. Small hiatal hernia wit h moderately thickened distal esophagus. UPPER GI: No significant abnormality. LIVER: Hepatic steatosis, but otherwise unremarkable. GALLBLADDER/BILE DUCTS: No biliary ductal dilatation.? PANCREAS: No mass, ductal dilation, or hermelindo-pancreatic fluid. SPLEEN: Unremarkable. ADRENALS: No adrenal masses. KIDNEYS AND URETERS: No hydronephrosis.No suspicious renal mass.No renal calculi.No ureteral calculi. ABDOMINAL AORTA AND OTHER VESSELS: Normal caliber aorta and IVC. PERITONEUM: No abnormal free fluid. No free air. LYMPH NODES: No pathologic lymphadenopathy. ABDOMINAL WALL: Fat containing inguinal hernias. SMALL BOWEL/COLON: Small bowel has normal course and caliber. No colonic wall thickening or pericolon ic inflammatory changes.Normal appendix. Low formed stool burden. URINARY BLADDER: Underdistended but grossly unremarkable. REPRODUCTIVE ORGANS: No pathologic process. MUSCULOSKELETAL: No acute or suspicious osseous abnormality. ADDITIONAL FINDINGS: None. IMPRESSION: No acute findings within the abdomen or pelvis. No appendicitis. Small hiatal hernia with moderately thickened distal esophagus that is only partially imaged. This wo uld suggest esophagitis.
--- NOTE | 2024-09-02 13:36 | P.CNS ---
Date of Consult: 09/02/24 Reason for Consult: Delirium tremens Requesting Physician: Sherine Tobias Chief Complaint: Delirium tremens History of Present Illness: Patient is a 54-year-old gentleman who came to the hospital with alcohol withdrawals. Patient without intractable nausea and vomiting. On further history patient states that he was vomiting up bile initially. Afterwards he vomited up coffee-ground emesis. And then after that episode he started having bright red blood in his emesis. He vomited up blood on 3 different occasions. He has also had a bowel movement afterwards that he said is black. Patient has been drinking for many years. He wants to go to a rehab. He was having abdominal pain which was radiating to his back. He has decided not to drink anymore because the pain in his abdomen was so bad. He actually was not able to drink anymore which is the reason he came into the emergency room. Patient has a history of being on Eliquis for a DVT. At this time, patient will need to be admitted to the hospital for further evaluation. Patient will need to be on a PPI and possibly an octreotide drip. Patient will need aggressive IV hydration. Unfortunately, we do not have gastroenterology at our facility and patient will need to be transferred to a tertiary care facility where GI is available. Allergies No Known Drug Allergies Allergy (Verified 09/26/14 12:32) Unknown Home Medications: Mirtazapine [Remeron*] 30 mg PO BEDTIME 07/23/19 Atorvastatin Calcium [Lipitor] 40 mg PO DAILY 02/07/23 Chlorpromazine HCl 200 mg PO TID 02/07/23 Divalproex Sodium [Divalproex Sodium ER] 500 mg PO TID 02/07/23 Famotidine [Pepcid*] 40 mg PO DAILY 02/07/23 Propranolol HCl 10 mg PO BID 02/07/23 Apixaban [Eliquis] 5 mg PO BID #70 tab 02/09/23 Gabapentin 2 cap PO TID 02/09/23 - Past Medical/Surgical History Diabetic: No -: Bipolar disorder -: Nerve Pain -: ETOH abuse -: HTN -: Acute myocardial infarction -: Left ankle surgery Psychosocial/ Personal History: Patient lives with his friend. - Family History Mother Medical History: Heart disease, Diabetes Father Medical History: Heart disease, Lung disease, Other (see notes) Notes: dementia - Social History Smoking Status: Unknown if ever smoked Alcohol use: Yes CD- Drugs: Yes Caffeine use: Yes Review of Systems 10-point ROS is otherwise unremarkable Physical Examination Reviewed General: Alert, In no apparent distress, Oriented x3 HEENT: Atraumatic, PERRLA, Mucous membr. moist/pink, EOMI, Sclerae nonicteric Neck: Supple, 2+ carotid pulse no bruit, No LAD, Without JVD or thyroid abnormality Respiratory: Clear to auscultation bilaterally, Normal air movement Cardiovascular: Regular rate/rhythm, Normal S1 S2 Gastrointestinal: Normal bowel sounds, Soft and benign, Non-distended, No tenderness Musculoskeletal: No clubbing, No swelling, No tenderness Integumentary: No rashes Neurological: Normal speech, Normal strength at 5/5 x4 extr, Normal tone, Cranial nerves 3-12 intact, Other (tremors), Abnormal gait, Abnormal reflexes Lymphatics: No axilla or inguinal lymphadenopathy Laboratory Data (last 24 hrs) 09/02/24 09/02/24 09/02/24 10:39 10:39 10:39 WBC 17.20 H Hgb 13.9 Hct 42.8 Plt Count 288 PT 12.3 INR 1.08 Sodium 129 L Potassium 2.7 L BUN 21 H Creatinine 1.38 H Glucose 165 H Total Bilirubin 1.1 H AST 47 H ALT 33 Alkaline Phosphatase 84 - Problems (1) GI bleeding Current Visit: Yes Status: Acute (2) Abdominal pain Current Visit: Yes Status: Acute (3) Melena Current Visit: Yes Status: Acute (4) Alcohol abuse Onset Date: 03/31/17 Current Visit: No Status: Acute (5) Tachycardia Onset Date: 09/26/14 Current Visit: No Status: Acute (6) Bipolar disorder Onset Date: 03/31/17 Current Visit: No Status: Chronic Qualifiers: Conclusions/ Impression: Plan: 1. Patient with abdominal pain with upper GI bleeding; patient also with melanotic stools. Will recommend PPI drip as well as octreotide drip as patient with a history of alcohol abuse. Patient with high risk of esophageal varices. Will also recommend transfer to tertiary care facility where GI is available for possible endoscopy emergently. If patient unstable then patient may need IR capabilities. 2. Abdominal pain with pain that radiates to the back; currently there is no labs for possible pancreatitis. Will recommend checking a lipase level as well. Will keep patient n.p.o. and aggressive IV fluids along with PPI and octreotide drip for #1. 3. Alcohol abuse with delirium tremens; patient will benefit from DT prevention medications including benzos. If patient going to ICU then patient would be on Precedex as well. Currently patient is tachycardic and having tremors of the upper extremities. Will go ahead and recommend starting Precedex at this time. Continue with banana bag as well once a day 4. Sinus tachycardia; continue with medication for rate control as long as blood pressure allows. Most likely related to GI bleeding and withdrawal symptoms 5. Hyponatremia; possible beer Potomania; continue with IV fluids with saline. 6. Leukocytosis; unknown etiology. Could be related to GI bleed and will continue with prophylactic antibiotic assisted management of the GI bleed which would include a cephalosporin. 7. Anion gap metabolic acidosis; continue with bicarb drip and aggressive IV hydration 8. GI DVT prophylaxis Critical Care: Yes Time Spent Managing Pts care (In Minutes): 45
[2024-09-02] MEDS ORDERED: PANTOPRAZOLE INJ 80 MG in NA CHLORIDE 0.9% 250 ML IV SCH (14:00)
[2024-09-02] MEDS ORDERED: OCTREOTIDE 500 MCG in NA CHLORIDE 0.9% 500 ML IV SCH (14:00)
[2024-09-02] MEDS ORDERED: NA CHLORIDE 0.9% 2,000 ML ONE (14:22)
[2024-09-02] MEDS ORDERED: chlordiazePOXIDE HCl 25 MG CAP ONE (15:34)
[2024-09-02 16:55] LABS: Barbiturates NEGATIVE (NEGATIVE); Benzodiazepines NEGATIVE (NEGATIVE); Cocaine NEGATIVE (NEGATIVE); METHAMPHETAM NEGATIVE (NEGATIVE); Methadone NEGATIVE (NEGATIVE); Opiates NEGATIVE (NEGATIVE); Phencyclidine NEGATIVE (NEGATIVE); THC Cannibis NEGATIVE (NEGATIVE)
[2024-09-02 20:22] VITALS: TEMP 97.8
[2024-09-02 20:28] VITALS: O2SAT 98
[2024-09-02 20:30] VITALS: BP 121/83
== END 2024-09-02 19:59 | disposition short-term general hospital (02) ==
LOC: ER 10:16
DX: K29.21 Alcoholic gastritis with bleeding (principal); F10.239 Alcohol dependence with withdrawal, unspecified; E87.6 Hypokalemia; E87.1 Hypo-osmolality and hyponatremia; D72.829 Elevated white blood cell count, unspecified; R00.0 Tachycardia, unspecified; F31.9 Bipolar disorder, unspecified; Z86.711 Personal history of pulmonary embolism
CPT/HCPCS: 93005; 85025; 80048; 36415; 85610; 80076; 83605; 84484; 83690; 83880; 80307; 74177; 71045; 82077; Q9967; J3411; J3480; J2405; J7030 ×3; 96361; 96365; 96366; 96368; 96375; 99285; J2354; J2470; J7040; J7050

== ENCOUNTER 2024-09-30 18:35 | Emergency (ER) | payer OTHER ==
--- NOTE | 2024-09-30 20:29 | RAD REPORT ---
EXAM: Chest Single View HISTORY: 54 years Male CHEST PAIN COMPARISON: 09/02/2024 FINDINGS: LUNGS/PLEURA: The lungs are clear. No pleural effusions or pneumothorax. No pulmonary edema. CARDIAC/MEDIASTINUM: The cardiac silhouette is within normal limits. UPPER ABDOMEN: No significant abnormality. BONES: No acute abnormality. LINES/TUBES/OTHER: N/A IMPRESSION: No evidence of acute cardiopulmonary disease. No significant change from prior.
[2024-09-30 20:49] LABS: ALT/SGPT 34 U/L (16-61); AST/SGOT 37 U/L (15-37); Alkaline Phosphatase 108 U/L (45-117); Anion Gap 12.7 mEq/L (5.0-15.0); BUN Blood Urea Nitrogen 10 mg/dL (7-18); Bicarbonate 29 mEq/L (21-32); Bilirubin Total 0.3 mg/dL (0.2-1.0); Glomerular Filtration Rate 94 ml/min (=/>90); Glucose Level 113 mg/dL (74-106); Potassium 3.7 mEq/L (3.5-5.1); Sodium Level 140 mEq/L (136-145)
[2024-09-30 20:50] LABS: Albumin 3.5 g/dL (3.4-5.0); Albumin/Globulin Ratio 0.8 (1.1-1.8); Globulin 4.6 g/dL (2.3-3.5); Magnesium 2.4 mg/dL (1.6-2.4); NT PRO-BNP 8 pg/mL (<125); Protein, Total 8.1 g/dL (6.4-8.2); Troponin High Sensitivity 4.4 pg/mL (<58.9)
[2024-09-30] MEDS ORDERED: DIAZEPAM 10 MG/2 ML INJ SYRINGE ONE ×3 (20:56→23:38)
[2024-09-30] MEDS ORDERED: NA CHLORIDE 0.9% 1,000 ML ONE ×2 (20:56→21:59)
[2024-09-30 21:09] LABS: Absolute Basophils 0.1 K/uL (0-0.5); Absolute Lymphocytes (CBC) 2.1 K/uL (0.7-4.9); Absolute Monocytes 0.4 K/uL (0.1-1.3); Absolute Neutrophil 3.5 K/uL (1.8-8.0); Basophils % 1.1 % (0-1.3); Eosinophils % 0.4 % (0-4.4); Hemoglobin 12.8 g/dL (13.6-17.9); Lymphocytes % 34.2 % (15.3-44.8); MCH 22.8 pg (27.0-35.0); MCHC 32.9 g/dL (32.0-36.0); MCV 69.3 fL (80-100); MPV 7.1 fL (7.6-11.3); Monocytes % 7.3 % (3.3-12.3); Nucleated Red Blood Cells % 0.2 % (0-0); Platelets 363 thou/uL (152-406); RBC Red Blood Cell Count 5.62 M/uL (4.33-5.43); Red Cell Distribution Width 18.8 % (12.1-15.2)
[2024-09-30 21:13] LABS: Bilirubin Direct < 0.2 mg/dL (0-0.2); Bilirubin Indirect, Calculated 0.1 mg/dL (0.2-0.8)
[2024-09-30] MEDS ORDERED: DIAZEPAM 5 MG TABLET ONE (21:33)
[2024-09-30] MEDS ORDERED: THIAMINE 200 MG/2 ML INJ ONE (21:58)
[2024-09-30] MEDS ORDERED: MULTIVITAMINS 10 ML VIAL (INJ) IV ONE (21:58)
[2024-09-30] MEDS ORDERED: FOLIC ACID 5 MG/ML VIAL ONE (21:59)
[2024-09-30 23:58] LABS: Specific Gravity 1.021 (1.005-1.030); Sqamous Epithelial None Seen /HPF (None Seen); Urine Bacteria None Seen /HPF (<20); Urine Bilirubin NEGATIVE (Negative); Urine Blood Negative (Negative); Urine Clarity Clear (Clear); Urine Color Yellow (Yellow); Urine Culture Reflex Order NOT NEEDED; Urine Glucose NEGATIVE (Negative); Urine Ketones TRACE (Negative); Urine Microscopic Reflex YN ORDER UMIC; Urine Mucus 2+ /HPF (None Seen); Urine Nitrite NEGATIVE (Negative); Urine Protein 1+ (Negative); Urine RBC None Seen /HPF (None Seen); Urine Urobilinogen Normal (Normal); Urine WBC <5 /HPF (<5)
[2024-09-30 23:59] LABS: Barbiturates NEGATIVE (NEGATIVE); Benzodiazepines POSITIVE (NEGATIVE); Cocaine NEGATIVE (NEGATIVE); METHAMPHETAM NEGATIVE (NEGATIVE); Methadone NEGATIVE (NEGATIVE); Opiates NEGATIVE (NEGATIVE); Phencyclidine NEGATIVE (NEGATIVE); THC Cannibis NEGATIVE (NEGATIVE)
[2024-10-01] MEDS ORDERED: HALOPERIDOL LACT 5 MG/ML INJ ONE (00:45)
--- NOTE | 2024-10-01 02:40 | ER ---
Nurse's Notes [facility] Name: Frank Polo Age: 54 yrs Sex: Male : 1970 Arrival Date: 09/30/2024 Time: 18:35 Bed 19 Private MD: Diagnosis: Alcohol dependence with intoxication;Suicidal ideations Presentation: 09/30 18:39 Chief complaint: Patient states: Toned out for CP, unremarkable EKG, VSS. Coronavirus jl7 screen: At this time, the client does not indicate any symptoms associated with coronavirus-19. Ebola Screen: No symptoms or risks identified at this time. Initial Sepsis Screen: Does the patient meet any 2 criteria? No. Patient's initial sepsis screen is negative. Does the patient have a suspected source of infection? No. Patient's initial sepsis screen is negative. Risk Assessment: Do you want to hurt yourself or someone else? Patient reports no desire to harm self or others. Onset of symptoms was September 30, 2024. 18:39 Method Of Arrival: EMS: [facility] 18:39 Acuity: PRANAV 2 jl7 Triage Assessment: 18:42 General: Appears in no apparent distress. uncomfortable, Behavior is calm, cooperative. jl7 Pain: Complains of pain in chest Pain currently is 10 out of 10 on a pain scale. Cardiovascular: Patient's skin is warm and dry. Rhythm is regular. Historical: - Allergies: 18:42 NKDA; jl7 - Home Meds: 10/01 00:31 gabapentin 600 mg oral Tablet, Extended Release 24 hr 1 tab three times a day [Active]; al5 Zyprexa 5 mg Oral BID [Active]; - PMHx: 09/30 18:42 Alcoholism; Anxiety; Bipolar disorder; Myocardial infarction; PE; jl7 - PSHx: 18:42 ankle surgery; jl7 - Immunization history:: Adult Immunizations unknown. - Infectious Disease History:: Denies. - Social history:: Smoking status: Patient reports use of chewing tobacco. Patient uses alcohol, last drink today. Screenin:47 [facility] ED Fall Risk Assessment (Adult) History of falling in the last 3 months, cp4 including since admission No falls in past 3 months (0 pts) Confusion or Disorientation No (0 pts) Intoxicated or Sedated No (0 pts) Impaired Gait No (0 pts) Mobility Assist Device Used No (0 pt) Altered Elimination No (0 pt) Score/Fall Risk Level 0 - 2 = Low Risk Oriented to surroundings, Maintained a safe environment, Assessed \\T\\ reinforced patient's understanding of fall precautions, Hourly rounding (assess needs \\T\\ fall precautionary measures) done. Abuse screen: Denies threats or abuse. Denies injuries from another. Nutritional screening: No deficits noted. Tuberculosis screening: No symptoms or risk factors identified. Assessment: 20:45 General: Appears in no apparent distress. comfortable, Behavior is calm, cooperative, cp4 appropriate for age. General: Smells of alcohol. 20:47 Pain: Complains of pain in chest Pain does not radiate. Pain currently is 10 out of 10 cp4 on a pain scale. Pain began gradually. 21:06 Reassessment: Patient states he is now having suicidal thoughts of hanging himself. cp4 Provider notified. 21:39 General: Appears in no apparent distress. Behavior is restless, uncooperative, Smells al5 of alcohol, Reports shaking. Pain: Denies pain. Neuro: Level of Consciousness is awake, alert, Oriented to person, place, time, situation. Cardiovascular: Capillary refill < 3 seconds Patient's skin is warm and dry. Rhythm is sinus rhythm. Respiratory: Airway is patent Respiratory effort is even, unlabored, Respiratory pattern is regular, symmetrical. GI: Abdomen is non-distended, obese. : No signs and/or symptoms were reported regarding the genitourinary system. EENT: No signs and/or symptoms were reported regarding the EENT system. Derm: Skin is intact, is healthy with good turgor, Skin is pink, warm \\T\\ dry. normal. Musculoskeletal: No signs and/or symptoms reported regarding the musculoskeletal system. 22:20 Reassessment: Patient appears in no apparent distress at this time. No changes from al5 previously documented assessment. Patient and/or family updated on plan of care and expected duration. Pain level reassessed. Patient is alert, oriented x 3, equal unlabored respirations, skin warm/dry/pink. asking for provider, states the medications we are giving him are not working. notified provider, provider aware. 23:52 Reassessment: Patient appears in no apparent distress at this time. No changes from al5 previously documented assessment. Patient and/or family updated on plan of care and expected duration. Pain level reassessed. Patient is alert, oriented x 3, equal unlabored respirations, skin warm/dry/pink. asking for provider, states the medications we are giving him are not working. notified provider, provider aware. 10/01 00:53 Reassessment: Patient appears in no apparent distress at this time. No changes from al5 previously documented assessment. Patient and/or family updated on plan of care and expected duration. Pain level reassessed. Patient is alert, oriented x 3, equal unlabored respirations, skin warm/dry/pink. 02:11 Reassessment: Patient appears in no apparent distress at this time. No changes from al5 previously documented assessment. Patient and/or family updated on plan of care and expected duration. Pain level reassessed. Patient is alert, oriented x 3, equal unlabored respirations, skin warm/dry/pink. 03:07 Reassessment: Patient appears in no apparent distress at this time. No changes from al5 previously documented assessment. Patient and/or family updated on plan of care and expected duration. Pain level reassessed. Patient is alert, oriented x 3, equal unlabored respirations, skin warm/dry/pink. 04:24 Reassessment: Patient appears in no apparent distress at this time. No changes from al5 previously documented assessment. Patient and/or family updated on plan of care and expected duration. Pain level reassessed. Patient is alert, oriented x 3, equal unlabored respirations, skin warm/dry/pink. 05:18 Reassessment: Patient appears in no apparent distress at this time. No changes from al5 previously documented assessment. Patient and/or family updated on plan of care and expected duration. Pain level reassessed. Patient is alert, oriented x 3, equal unlabored respirations, skin warm/dry/pink. 06:18 Reassessment: Patient appears in no apparent distress at this time. No changes from al5 previously documented assessment. Patient and/or family updated on plan of care and expected duration. Pain level reassessed. Patient is alert, oriented x 3, equal unlabored respirations, skin warm/dry/pink. 08:30 General: Appears distressed, uncomfortable, Behavior is calm, cooperative, appropriate ll1 for age. General: Reports SI without plan, ETOH withdrawals. Pain: Denies pain. Neuro: Reports withdrawals, shakes. Neuro: Level of Consciousness is awake, alert, obeys commands, Oriented to person, place, time, situation, Speech is normal, Facial symmetry appears normal. Respiratory: Airway is patent Trachea midline Respiratory effort is even, unlabored, Respiratory pattern is regular, symmetrical. GI: Reports nausea. 10:00 Reassessment: Assumed care of patient at this time. Pt currently sleeping, respirations cm10 even and unlabored. sitter remains at bedside. 10:00 Respiratory: Airway is patent Respiratory effort is even, unlabored, Respiratory cm10 pattern is regular, symmetrical. Psych: 09/30 21:07 [place] Suicide Severity Screening: In the past month, have you wished you were cp4 or wished you could go to sleep and not wake up? Patient responds "yes." Based off the client's responses additional C-SSRS screening is required. "In the past month, have you actually had any thoughts of killing yourself?" Patient responds "yes." Based off the client's response additional [place] suicide severity screening questions to be further documented on paper forms. "In your lifetime, have you ever done anything, started to do anything, or prepared to do anything to end your life?" Patient responds "yes." Patient reports suicidal intent occurred greater than 3 months prior. Subjective: Patient's mood is hopeless. Objective: Patient is cooperative, Speech is normal, Affect is flat. Interventions: Removed personal items and placed in bag. Patient placed in hospital gown. Searched person for dangerous items. Belonging list filled out. Safety Checks: Personal items have been removed. Door is open. Patient uses 12 pack. Commitment: Patient will be a voluntary commitment. Vital Signs: 18:39 BP 130 / 97; Pulse 113; Resp 15; Temp 97; Pulse Ox 97% ; Pain 10/10; jl7 21:30 BP 105 / 74; Pulse 87; Resp 11; Pulse Ox 98% ; Weight 113.4 kg; Height 5 ft. 10 in. ; al5 22:00 BP 118 / 78; Pulse 101; Resp 14; Pulse Ox 98% ; al5 22:30 BP 111 / 77; Pulse 97; Resp 16; Pulse Ox 94% ; al5 23:00 BP 119 / 86; Pulse 101; Resp 19; Pulse Ox 96% ; al5 23:30 BP 119 / 65; Pulse 96; Resp 17; Pulse Ox 98% ; al5 10/01 00:00 BP 124 / 81; Pulse 88; Resp 16; Pulse Ox 99% ; al5 00:30 BP 124 / 84; Pulse 96; Resp 17; Pulse Ox 99% ; al5 01:00 BP 134 / 97; Pulse 102; Resp 16; Pulse Ox 97% ; al5 01:30 BP 125 / 87; Pulse 93; Resp 18; Pulse Ox 95% ; al5 02:00 BP 112 / 63; Pulse 88; Resp 17; Pulse Ox 96% ; al5 06:00 BP 137 / 63; Pulse 88; Resp 18; Pulse Ox 97% ; al5 08:27 BP 132 / 76; Pulse 102; Resp 16; Pulse Ox 98% ; am7 12:40 BP 142 / 89; Pulse 98; Resp 16; Pulse Ox 97% ; am7 09/30 21:30 Body Mass Index 35.87 (113.40 kg, 177.8 cm) al5 09/30 18:39 Pain Scale: Adult [facility] ED Course: 09/30 18:39 Patient arrived in ED. jl7 18:42 Triage completed. jl7 18:42 Arm band placed on right wrist. jl7 18:43 EKG completed in triage. Results shown to MD. jl7 19:20 Tay Fletcher PA is PHCP. cp 19:20 Leandro Fishman MD is Attending Physician. cp 20:07 Eder Boudreaux DO is Attending Physician. cp 20:10 XRAY Chest (1 view) In Process Unspecified. EDMS 20:16 Inserted saline lock: 20 gauge in left antecubital area, using aseptic technique. Blood al5 collected. Flushed with 10 mL NS. 20:45 Jo-Ann Clinton is Primary Nurse. cp4 20:47 Bed in low position. Call light in reach. Side rails up X 1. Client placed on cp4 continuous cardiac and pulse oximetry monitoring. NIBP monitoring applied. teletypesetter monitor on. Pulse ox on. NIBP on. 20:47 No provider procedures requiring assistance completed. Patient maintains SpO2 cp4 saturation greater than 95% on room air. 22:42 Provided Education on: plan of care. al5 10/01 02:43 Faxed pt clinicals to [facility]. rv1 06:28 faxed patient clinical information to [facility], [facility]. 07:49 connected the nurse from [facility] with Maureen Glover for patient transfer consultation. 07:57 Report given to Rashida Fernandes RN at [facility]. Need to re-draw ETOH level. hb 11:19 Primary Nurse role handed off by Jo-Ann Clinton ll1 11:46 administrative approval given by Henry Padilla/ patient has been accepted to [facility]/ Dr. Ole Dent has accepted the patient in transfer without conference with Dr. Benavides. 12:59 IV discontinued, intact, bleeding controlled, No redness/swelling at site. Pressure cm10 dressing applied. Administered Medications: 09/30 21:00 Drug: NS 0.9% IV 1000 ml IV at 1000 ml once; to be given as a bolus over 60 minutes cp4 Route: IV; Rate: 1000 ml; Site: left antecubital; 10/01 02:09 Follow up: Response: No adverse reaction; IV Status: Completed infusion; IV Intake: al5 1000ml 09/30 21:01 Drug: Diazepam IVP 5 mg IVP once Route: IVP; Site: left antecubital; cp4 10/01 00:52 Follow up: Response: No adverse reaction; RASS: Restless (+1) al5 09/30 21:36 Not Given (Physician Discretion): diazepam5 mg IVP once br2 21:37 Drug: Diazepam PO 5 mg PO once Route: PO; br2 10/01 00:52 Follow up: Response: No adverse reaction; RASS: Restless (+1) al5 09/30 22:08 Drug: Banana Bag - (Multivitamin IV 1 amp, NS 0.9% IV 1000 ml, Thiamine IV 100 mg, al5 foLIC Acid IVPB 1 mg) IV at 125 ml/hr once Route: IV; Rate: 125 ml/hr; Site: left antecubital; 10/01 08:45 Follow up: Response: No adverse reaction; IV Status: Completed infusion; IV Intake: ll1 1000ml 09/30 22:29 Drug: Diazepam IVP 5 mg IVP once Route: IVP; Site: left antecubital; al5 10/01 00:52 Follow up: Response: No adverse reaction; RASS: Restless (+1) al5 09/30 23:45 Drug: Diazepam IVP 10 mg IVP once Route: IVP; Site: left antecubital; iw 10/01 00:51 Follow up: Response: No adverse reaction; RASS: Restless (+1) al5 00:51 Drug: HALdol (as decanoate) IM 10 mg IM once Route: IM; Site: left gluteus; al5 02:09 Follow up: Response: No adverse reaction; Anxiety decreased; RASS: Alert and Calm (0) al5 08:25 Drug: Diazepam IVP 5 mg IVP once Route: IVP; Site: left antecubital; ll1 09:16 Follow up: Response: No adverse reaction; Anxiety decreased; RASS: Drowsy (-1) ll1 08:45 Drug: Ondansetron IVP 4 mg IVP once; over 2 minutes Route: IVP; Site: left antecubital; ll1 09:17 Follow up: Response: No adverse reaction; Nausea is decreased ll1 10:46 Drug: Famotidine IVP 20 mg IVP once; dilute with 10 mL 0.9% NaCl; give over 2 minutes cm10 Route: IVP; Site: left antecubital; 11:16 Follow up: Response: No adverse reaction cm10 Medication: 09/30 20:47 VIS not applicable for this client. cp4 Intake: 10/01 02:09 IV: 1000ml; Total: 1000ml. al5 08:45 IV: 1000ml; Total: 2000ml. ll1 Outcome: 02:40 ER care complete, transfer ordered by MD. cp 12:59 Transferred by [facility] Liz[facility]. to other acute care facility: [facility]. cm10 12:59 Condition: stable 12:59 Instructed on the need for transfer, 13:00 Patient left the ED. cm10 Signatures: Dispatcher [employer] EDMS Cesia Ramon RN RN iw Tay Fletcher PA PA cp Baxter, Heather RN EDISON Tino Leyva RN RN jl7 Alanis Perez Lynsay, RN RN ll1 Awa Calvillo rvLucy Luna RN RN cm10 Jo-Ann Clinton cp4 Jojo Flynn RN RN al5 Chelsi Piper RN RN br2 Liz Beltran am7 Corrections: (The following items were deleted from the chart) 09/30 23:53 22:20 Reassessment: Patient appears in no apparent distress at this time. No changes al5 from previously documented assessment. Patient and/or family updated on plan of care and expected duration. Pain level reassessed. Patient is alert, oriented x 3, equal unlabored respirations, skin warm/dry/pink. al5 23:57 21:30 BP 105 / 74; Pulse 87bpm; Resp 11bpm; Pulse Ox 98%; al5 al5
--- NOTE | 2024-10-01 02:40 | EDPHYS ---
Physician Documentation [facility] Name: Frank Polo Age: 54 yrs Sex: Male : 1970 Arrival Date: 09/30/2024 Time: 18:35 Bed 19 Private MD: ED Physician Eder Boudreaux HPI: 09/30 19:25 This 54 yrs old Male presents to ER via EMS with complaints of Chest Pain. cp 19:25 The patient or guardian reports chest pain that is located primarily in the anterior cp chest wall. Onset: today. 19:25 Patient is a 54 y/o male with PMHX of alcoholism who presents to ED reporting alcohol cp withdrawals. Patient reports last drink was this morning, 2 beers. 20:00 Patient reports suicidal ideations to nursing staff. cp Historical: - Allergies: 18:42 NKDA; jl7 - Home Meds: 10/01 00:31 gabapentin 600 mg oral Tablet, Extended Release 24 hr 1 tab three times a day [Active]; al5 Zyprexa 5 mg Oral BID [Active]; - PMHx: 09/30 18:42 Alcoholism; Anxiety; Bipolar disorder; Myocardial infarction; PE; jl7 - PSHx: 18:42 ankle surgery; jl7 - Immunization history:: Adult Immunizations unknown. - Infectious Disease History:: Denies. - Social history:: Smoking status: Patient reports use of chewing tobacco. Patient uses alcohol, last drink today. ROS: 19:30 Constitutional: Negative for body aches, chills, fever, poor PO intake, cp 19:30 Cardiovascular: Positive for chest pain, cp 19:30 Respiratory: Positive for shortness of breath, Negative for cough, wheezing, 19:30 Abdomen/GI: Negative for abdominal pain, vomiting, diarrhea, constipation, 20:00 Psych: Positive for anxiety, alcohol dependence, suicidal ideation, cp 21:00 All other systems are negative, cp Exam: 18:50 ECG was reviewed by the Attending Physician. cp 19:35 Constitutional: The patient appears in no acute distress, alert, awake, cp non-diaphoretic, non-toxic, well developed, well nourished, anxious, uncomfortable, 19:35 Head/Face: Normocephalic, atraumatic. cp 19:35 Eyes: Periorbital structures: appear normal, Conjunctiva: normal, no exudate, no injection, Sclera: no appreciated abnormality, Lids and lashes: appear normal, bilaterally, 19:35 ENT: External ear(s): are unremarkable, Nose: is normal, Mouth: Lips: moist, Oral mucosa: moist, Posterior pharynx: Airway: no evidence of obstruction, patent, 19:35 Chest/axilla: Inspection: normal, Palpation: is normal, no crepitus, no tenderness, 19:35 Cardiovascular: Rate: tachycardic, Rhythm: regular, Edema: ankle edema, that is mild, JVD: is not appreciated, 19:35 Respiratory: the patient does not display signs of respiratory distress, Respirations: normal, no use of accessory muscles, no retractions, labored breathing, is not present, Breath sounds: are clear throughout, no decreased breath sounds, no stridor, no wheezing, 19:35 Abdomen/GI: Inspection: obese Palpation: abdomen is soft and non-tender, in all quadrants, 19:35 Neuro: Orientation: to person, place \T\ time. Mentation: able to follow commands, Motor: moves all fours, strength is normal, 19:35 Psych: Behavior/mood is anxious, Affect is animated, Judgement / Insight is impaired. 21:10 ECG was reviewed by the Attending Physician. cp Vital Signs: 18:39 BP 130 / 97; Pulse 113; Resp 15; Temp 97; Pulse Ox 97% ; Pain 10/10; jl7 21:30 BP 105 / 74; Pulse 87; Resp 11; Pulse Ox 98% ; Weight 113.4 kg; Height 5 ft. 10 in. ; al5 22:00 BP 118 / 78; Pulse 101; Resp 14; Pulse Ox 98% ; al5 22:30 BP 111 / 77; Pulse 97; Resp 16; Pulse Ox 94% ; al5 23:00 BP 119 / 86; Pulse 101; Resp 19; Pulse Ox 96% ; al5 23:30 BP 119 / 65; Pulse 96; Resp 17; Pulse Ox 98% ; al5 05 00:00 BP 124 / 81; Pulse 88; Resp 16; Pulse Ox 99% ; al5 00:30 BP 124 / 84; Pulse 96; Resp 17; Pulse Ox 99% ; al5 01:00 BP 134 / 97; Pulse 102; Resp 16; Pulse Ox 97% ; al5 01:30 BP 125 / 87; Pulse 93; Resp 18; Pulse Ox 95% ; al5 02:00 BP 112 / 63; Pulse 88; Resp 17; Pulse Ox 96% ; al5 06:00 BP 137 / 63; Pulse 88; Resp 18; Pulse Ox 97% ; al5 08:27 BP 132 / 76; Pulse 102; Resp 16; Pulse Ox 98% ; am7 12:40 BP 142 / 89; Pulse 98; Resp 16; Pulse Ox 97% ; am7 09/30 21:30 Body Mass Index 35.87 (113.40 kg, 177.8 cm) al5 09/30 18:39 Pain Scale: Adult jl7 MDM: 09/30 21:00 Differential diagnosis: abnormal EKG, acute myocardial infarction, pleurisy, pneumonia, cp pneumothorax, stable angina, unstable angina, alcohol withdrawal, seizure. 10/01 00:40 Data reviewed: vital signs, nurses notes, lab test result(s), EKG, and as a result, I will observe until clinically sober. 02:40 Medical Screening Exam initiated 02:40 I considered the following discharge prescriptions or medication management in the emergency department Medications were administered in the Emergency Department. See MAR. 02:40 Consideration of Admission/Observation Escalation of care including admission/observation considered. Independent interpretation of the following test(s) in the Emergency Department EKG: See my EKG interpretation above. Care significantly affected by the following chronic conditions: Obesity. Counseling: I had a detailed discussion with the patient and/or guardian regarding the historical points, exam findings, and any diagnostic results supporting the discharge/admit diagnosis, lab results, radiology results, the need for further work-up and treatment in the hospital. Response to treatment: the patient's symptoms have markedly improved after treatment. Transition of care: After a detail discussion of the patient's case, care is transferred to Eder Boudreaux DO. 09/30 19:21 Order name: Basic Metabolic Panel; Complete Time: 21:57 09/30 21:57 Interpretation: Normal except: GLUC 113; CA 8.4. 09/30 19:21 Order name: CBC with Diff; Complete Time: 21:57 09/30 22:20 Interpretation: Normal except: RBC 5.62; HGB 12.8; HCT 39.0; MCV 69.3; MCH 22.8; RDW cp 18.8; MPV 7.1. 09/30 19:21 Order name: LFT's; Complete Time: 21:57 cp 09/30 23:28 Interpretation: Normal except: IBILI, CALC 0.1; GLOB 4.6; A/G 0.8. cp 09/30 19:21 Order name: Magnesium; Complete Time: 21:57 cp 09/30 19:21 Order name: NT PRO-BNP; Complete Time: 21:57 cp 09/30 19:21 Order name: PT-INR; Complete Time: 08:22 cp 09/30 19:21 Order name: Troponin HS; Complete Time: 21:57 cp 09/30 20:19 Order name: UDS; Complete Time: 00:11 cp 10/01 00:39 Interpretation: Normal except: BZO POSITIVE. cp 09/30 20:19 Order name: UA Rfx Osiel Cult if indicated; Complete Time: 00:11 cp 10/01 00:11 Interpretation: Reviewed. 09/30 20:30 Order name: ETOH Level; Complete Time: 00:33 cp 10/01 00:33 Interpretation: Abnormal: ETOH 261. cp 10/01 07:57 Order name: ETOH Level; Complete Time: 01:55 hb 09/30 19:21 Order name: XRAY Chest (1 view); Complete Time: 21:57 cp 09/30 19:21 Order name: Cardiac monitoring; Complete Time: 20:52 cp 09/30 19:21 Order name: EKG - Nurse/Tech; Complete Time: 21:06 cp 09/30 19:21 Order name: IV Saline Lock; Complete Time: 20:52 cp 09/30 19:21 Order name: Labs collected and sent; Complete Time: 20:52 cp 09/30 19:21 Order name: O2 Per Protocol; Complete Time: 20:52 cp 09/30 19:21 Order name: O2 Sat Monitoring; Complete Time: 20:52 cp EC/16 18:50 Rate is 109 beats/min. Rhythm is regular. MN interval is normal. QRS interval is cp normal. QT interval is normal. T waves are Inverted in lead aVR. 21:10 Rate is 100 beats/min. Rhythm is regular. MN interval is normal. QRS interval is cp normal. QT interval is normal. T waves are Inverted in lead aVR. Interpreted by me. Reviewed by me. Administered Medications: 21:00 Drug: NS 0.9% IV 1000 ml IV at 1000 ml once; to be given as a bolus over 60 minutes cp4 Route: IV; Rate: 1000 ml; Site: left antecubital; 10/01 02:09 Follow up: Response: No adverse reaction; IV Status: Completed infusion; IV Intake: al5 1000ml 09/30 21:01 Drug: Diazepam IVP 5 mg IVP once Route: IVP; Site: left antecubital; cp4 10/01 00:52 Follow up: Response: No adverse reaction; RASS: Restless (+1) al5 09/30 21:36 Not Given (Physician Discretion): diazepam5 mg IVP once br2 21:37 Drug: Diazepam PO 5 mg PO once Route: PO; br2 10/01 00:52 Follow up: Response: No adverse reaction; RASS: Restless (+1) al5 09/30 22:08 Drug: Banana Bag - (Multivitamin IV 1 amp, NS 0.9% IV 1000 ml, Thiamine IV 100 mg, al5 foLIC Acid IVPB 1 mg) IV at 125 ml/hr once Route: IV; Rate: 125 ml/hr; Site: left antecubital; 10/01 08:45 Follow up: Response: No adverse reaction; IV Status: Completed infusion; IV Intake: ll1 1000ml 09/30 22:29 Drug: Diazepam IVP 5 mg IVP once Route: IVP; Site: left antecubital; al5 10/01 00:52 Follow up: Response: No adverse reaction; RASS: Restless (+1) al5 09/30 23:45 Drug: Diazepam IVP 10 mg IVP once Route: IVP; Site: left antecubital; iw 10/01 00:51 Follow up: Response: No adverse reaction; RASS: Restless (+1) al5 00:51 Drug: HALdol (as decanoate) IM 10 mg IM once Route: IM; Site: left gluteus; al5 02:09 Follow up: Response: No adverse reaction; Anxiety decreased; RASS: Alert and Calm (0) al5 08:25 Drug: Diazepam IVP 5 mg IVP once Route: IVP; Site: left antecubital; ll1 09:16 Follow up: Response: No adverse reaction; Anxiety decreased; RASS: Drowsy (-1) ll1 08:45 Drug: Ondansetron IVP 4 mg IVP once; over 2 minutes Route: IVP; Site: left antecubital; ll1 09:17 Follow up: Response: No adverse reaction; Nausea is decreased ll1 10:46 Drug: Famotidine IVP 20 mg IVP once; dilute with 10 mL 0.9% NaCl; give over 2 minutes cm10 Route: IVP; Site: left antecubital; 11:16 Follow up: Response: No adverse reaction cm10 Disposition: 03:12 I was immediately available on-site in the Emergency Department for consultation in the ms3 care of the patient. 10/02 01:54 Chart complete. cp Disposition Summary: 10/01/24 02:40 Transfer Ordered Notes: Transfer Location: Psych Facility cp Reason: Higher level of care cp Condition: Stable cp Problem: new cp Symptoms: have improved cp Accepting Physician: doctor(10/01/24 13:00) cm10 Diagnosis - Alcohol dependence with intoxication cp - Suicidal ideations cp Forms: - Medication Reconciliation Form cp - SBAR form cp Signatures: Dispatcher [employer] EDMS Cesia Ramon, Jani Houston RN, MD MD rn Page, Corey, PA PA cp Tino Leyva RN RN jl7 Maureen Soria RN RN ll1 Eder Boudreaux DO DO ms3 Lucy Aviles RN RN cm10 Jo-Ann Clinton cp4 Jojo Flynn RN RN al5 Chelsi Piper, RN RN br2 Corrections: (The following items were deleted from the chart) 09/30 19:21 19:21 BASIC METABOLIC PANEL+C.LAB.BRZ ordered. EDMS EDMS 19:21 19:21 CBC+H.LAB.BRZ ordered. EDMS EDMS 19:21 19:21 HEPATIC FUNCTION+C.LAB.BRZ ordered. EDMS EDMS 19:21 19:21 MAGNESIUM+C.LAB.BRZ ordered. EDMS EDMS 19:21 19:21 PROBNP+C.LAB.BRZ ordered. EDMS EDMS 19:21 19:21 PROTIME (+INR)+COAG.LAB.BRZ ordered. EDMS EDMS 19:21 19:21 Troponin High Sensitivity+C.LAB.BRZ ordered. EDMS EDMS 19:21 19:21 Chest Single View+RAD.RAD.BRZ ordered. EDMS EDMS 20:30 20:30 ETHANOL+C.LAB.BRZ ordered. EDMS EDMS 10/01 02:42 01:58 Psych: Positive for anxiety, alcohol dependence, suicidal ideation, cp cp 13:00 02:40 doctor cp cm10 10/02 01:51 05/16 21:00 Psych: Positive for anxiety, alcohol dependence, suicidal ideation, cp cp
[2024-10-01 06:26] LABS: PT Prothrombin Time 12.5 SECONDS (10-13.0); Protime INR 1.1
[2024-10-01] MEDS ORDERED: DIAZEPAM 10 MG/2 ML INJ SYRINGE ONE (08:24)
[2024-10-01] MEDS ORDERED: ONDANSETRON 4 MG/2 ML VIAL ONE (08:39)
[2024-10-01] MEDS ORDERED: FAMOTIDINE 20 MG/2 ML VIAL IV ONE (10:43)
[2024-10-01 13:32] VITALS: TEMP 97
[2024-10-01 13:52] VITALS: BP 142/89; O2SAT 97
--- NOTE | 2024-10-03 16:49 | EKG ---
Test Date: 2024-09-30 Test Time: 21:04:34 Glove Presser: GILDARDO MEASUREMENT RESULTS: Intervals: Rate: 100 NV: 150 QRSD: 84 QT: 360 QTc: 464 [place]: P: 10 NV: 150 QRS: 38 T: 25 INTERPRETIVE STATEMENTS: Normal sinus rhythm Low voltage QRS Borderline ECG Compared to ECG 09/02/2024 10:58:28 Low QRS voltage now present Sinus tachycardia no longer present Electronically Signed On 10-03-24 16:46:10 CDT by Ulises Stovall
== END 2024-10-01 13:00 ==
LOC: ER 18:35
DX: F10.229 Alcohol dependence with intoxication, unspecified (principal); R45.851 Suicidal ideations; F31.9 Bipolar disorder, unspecified; I25.2 Old myocardial infarction; F17.220 Nicotine dependence, chewing tobacco, uncomplicated
CPT/HCPCS: 96365; 96361; 93005; 85025; 81001; 80048; 36415; 83735; 85610; 80076; 84484; 83880; 80307; 71045; 96375; 96372; 99285; 96366; 82077 ×2; J3411; J1630; J3360 ×4; J2405; J7030 ×2